=== PATIENT | male | born 1945 | race Caucasian/White ===

== ENCOUNTER 2017-03-18 17:11 | Inpatient (IN) | payer OTHER ==
[~2017-03-18] VITALS: Ht 175.3 cm; Wt 55.5 kg
[~2017-03-18 17:11] MED LIST: ASPEC81 PO; ASTN; AZIT-57 PO; DMX250 PO; DOXA-10 PO; GFNSR600 PO; IPRA1AER2 INH; IPRASOL34 INH; LPR25 PO; NCDT14 TD; OMEP40CA PO; POTA10CA28 PO; PRED10TA PO; SPRIN INH; SYMIN160 INH; [UNRECOGNIZED DRUG - CODE] INH
[2017-03-18] MEDS ORDERED: ALBUTEROL 0.083% NEBU SOLN 3 ML VIAL INH STA (17:20)
[2017-03-18 17:48] LABS: INR 1.1 (0.9-1.1); PTT PATIENT 25.5 SECONDS (21.0-31.0)
--- NOTE | 2017-03-18 17:50 | DIAGNOSTIC IMAGING REPORT ---
SINGLE VIEW CHEST CLINICAL HISTORY: Dyspnea. FINDINGS: An AP, portable, upright chest radiograph is compared to study dated 06/07/15 and correlated with chest CT dated 06/08/2015. The examination is degraded by portable technique and patient rotation. The heart is enlarged and there is atherosclerotic calcification of the thoracic aorta. The pulmonary vasculature is noncongested. Advanced emphysema and chronic interstitial thickening are similar to previous. Bullous change is again noted at the right apex. Patchy airspace opacities are present at both lung bases. No large pleural effusion or pneumothorax is seen. The skeletal structures are osteopenic. The bony thorax is grossly intact. IMPRESSION: 1. Cardiomegaly and advanced emphysema. There is no evidence of congestive failure. 2. There are patchy airspace opacities present at both lung bases. Correlate clinically for evidence of a mild infectious/inflammatory pneumonitis. Radiographic follow-up to resolution is recommended. Electronically signed by: Raj Camara M.D. 03/18/2017 5:49 PM Dictated Date/Time: 03/18/2017 5:47 PM
[2017-03-18 17:51] LABS: HEMATOCRIT 27.5 % (42-52); HEMOGLOBIN 8.1 g/dL (14.0-18.0); MEAN CELL VOLUME 104.2 fL (80-100); MEAN CORPUSCULAR HEMOGLOBIN 30.7 pg (25-34); MEAN CORPUSCULAR HGB CONC 29.5 g/dl (32-36); RED CELL DISTRIBUTION WIDTH SD 57.7 fL (36.4-46.3)
[2017-03-18 17:55] LABS: ALBUMIN 3.1 gm/dl (3.4-5.0); CALCIUM 8.6 mg/dl (8.5-10.1); CREATININE 1.72 mg/dl (0.60-1.40); POTASSIUM 4.3 mmol/L (3.5-5.1)
[2017-03-18 18:00] LABS: TOTAL PROTEIN 5.8 gm/dl (6.4-8.2)
[2017-03-18 18:01] LABS: BASO % 1.1 %; BASO ABS # 0.03 K/uL (0-0.2); EOS % 3.2 %; EOS ABS # 0.09 K/uL (0-0.5); IG# 0.03 K/uL (0.00-0.02); LYMPH % 22.1 %; LYMPH ABS # 0.62 K/uL (1.2-3.4); MEAN PLATELET VOLUME 11.3 fL (7.4-10.4); MONO % 8.2 %; MONO ABS # 0.23 K/uL (0.11-0.59); NEUT % 64.3 %; PLATELET COUNT 76 K/uL (130-400)
[2017-03-18] MEDS ORDERED: LEVAQUIN 750MG / 150ML D5W IV STA (18:13)
[2017-03-18] MEDS ORDERED: IPRA1AER2 INH (18:14)
[2017-03-18] MEDS ORDERED: ACET-1311 PO (18:14)
[2017-03-18] MEDS ORDERED: ASPI81TA28 PO (18:14)
[2017-03-18] MEDS ORDERED: LEVO1TAB33 PO (18:14)
[2017-03-18] MEDS ORDERED: PANT40TA PO (18:14)
[2017-03-18] MEDS ORDERED: TRMCR130WC TD (18:14)
[2017-03-18] MEDS ORDERED: NAPR-1169 PO (18:14)
[2017-03-18] MEDS ORDERED: IPRASOL4 INH (18:14)
[2017-03-18] MEDS ORDERED: AZIT500T26 PO (18:14)
[2017-03-18] MEDS ORDERED: LEVO-14 PO (18:14)
[2017-03-18] MEDS ORDERED: SODIUM CHLORIDE 0.9% 1000ML 1,000 ML IV STA (18:41)
--- NOTE | 2017-03-18 19:50 | EMERGENCY ROOM VISIT NOTE ---
History Report prepared by Dimple: Yordan Wiggins Under the Supervision of: Dr. Nicolás Palacios D.O. First contact with patient: 17:13 Stated Complaint: BREATHING DIFFICULTY History of Present Illness The patient is a 71 year old male who presents to the Emergency Room with complaints of constant shortness of breath starting yesterday. Per EMS, the patient has a history of COPD, and he has a cough which has worsened for the past week. He is normally on 3L of oxygen at home, and the EMS state that the patient was on 6L when they picked him up. The patient states that he has had shortness of breath like this before, and he states that this feels like his normal COPD flare ups. He additionally notes that he has been having some diarrhea. Per EMS, the patient was given a DuoNeb on the way, and this helped the patient. Pt denies headache, change in vision, fevers, chest pain, nausea, vomiting, pain with urination, and melena. Source of History: patient, EMS Onset: yesterday Position: other (global) Quality: other (shortness of breath) Timing: constant Modifying Factors (Relieving): other (DuoNeb) Associated Symptoms: + diarrhea, No chest pain Review of Systems See HPI for pertinent positives & negatives. A total of 10 systems reviewed and were otherwise negative. Past Medical & Surgical Medical Problems: (1) BPH (benign prostatic hyperplasia) (2) Chronic respiratory failure (3) Diverticular disease of colon (4) Emphysema (5) GERD (gastroesophageal reflux disease) (6) Respiratory failure, acute (7) Tobacco use Surgical Problems: (1) H/O colonoscopy (2) H/O esophagogastroduodenoscopy (3) History of bronchoscopy Family History Diabetes mellitus FH: heart disease Social History Smoking Status: Current Every Day Smoker Alcohol Use: none Marital Status: single Occupation Status: retired Current/Historical Medications Scheduled Acetazolamide (Acetazolamide), 250 MG PO BID Aspirin (Aspirin Ec), 81 MG PO QAM Azithromycin (Zithromax), 500 MG PO 3XWK Budesonide/Formoterol Fumarate (Symbicort 160/4.5 Inhaler ), 2 PUFFS INH BID Doxazosin Mesylate (Doxazosin Mesylate), 8 MG PO DAILY Furosemide (Lasix), 20 MG PO DAILY Home O2 Therapy (Oxygen), 2-2.5 LITERS NA CONTINOUS Ipratropium-Albuterol (Duoneb), 1 TREATMENT INH Q4H Levocetirizine Dihydrochloride (Levocetirizine Dihydrochl), 5 MG PO DAILY Pantoprazole (Protonix), 40 MG PO QAM Potassium Chloride (Micro-K Ext Rel), 10 MEQ PO BID Triamcinolone Acet (Aristocort 0.1%), 1 APPLN TD BID Scheduled PRN Acetaminophen (Tylenol), 650 MG PO Q4H PRN for Pain or Fever Azelastine Hcl (Astelin Nasal [place]), 1-2 SPRAYS NA BID PRN for ALLERGIES Ipratropium-Albuterol (Combivent Respimat), 1 PUFFS INH Q4H PRN for SOB/COUGH Levofloxacin (Levaquin), 750 MG PO DAILY PRN for RESCUE KIT Naproxen (Naprosyn), 500 MG PO BID W/FOOD PRN for Pain Allergies Coded Allergies: POLLEN (Verified Allergy, Unknown, SEASONAL ALLERGIES, 03/18/17) Lactose Intolerance (Verified Adverse Reaction, Intermediate, GI SYMPTOMS , 03/18/17) Physical Exam Vital Signs Date Time Temp Pulse Resp B/P (MAP) Pulse Ox O2 Delivery O2 Flow Rate FiO2 03/18/17 18:59 101 20 130/65 Nasal Cannula 3.0 03/18/17 18:48 96 18 134/65 98 Nasal Cannula 3.0 03/18/17 17:35 Nasal Cannula 3.0 03/18/17 17:35 100 Nasal Cannula 3.0 03/18/17 17:18 36.9 99 20 134/65 98 Nasal Cannula 3.0 Physical Exam GENERAL: Sitting up in bed, chronically ill appearing, disheveled, dyspneic with conversation. EYE EXAM: normal conjunctiva. OROPHARYNX: no exudate, no erythema, lips, buccal mucosa, and tongue normal and mucous membranes are moist NECK: supple, no nuchal rigidity, no adenopathy, non-tender LUNGS: Minimal air movement bilaterally. Normal chest wall mechanics HEART: no murmurs, S1 normal and S2 normal ABDOMEN: abdomen soft, non-tender, normo-active bowel sounds, no masses, no rebound or guarding. BACK: Back is symmetrical on inspection and there is no deformity, no midline tenderness, no CVA tenderness. RECTAL: Heme negative SKIN: no rashes and no bruising UPPER EXTREMITIES: upper extremities are grossly normal. LOWER EXTREMITIES: Calves are equal bilaterally. No pitting edema. NEURO EXAM: Normal sensorium, cranial nerves II-XII grossly intact, normal speech, no gross weakness of arms, no gross weakness of legs. Gross sensation intact. Medical Decision & Procedures ER Provider Diagnostic Interpretation: Radiology results as stated below per my review and the radiologist's interpretation: SINGLE VIEW CHEST CLINICAL HISTORY: Dyspnea. FINDINGS: An AP, portable, upright chest radiograph is compared to study dated 06/07/15 and correlated with chest CT dated 06/08/2015. The examination is degraded by portable technique and patient rotation. The heart is enlarged and there is atherosclerotic calcification of the thoracic aorta. The pulmonary vasculature is noncongested. Advanced emphysema and chronic interstitial thickening are similar to previous. Bullous change is again noted at the right apex. Patchy airspace opacities are present at both lung bases. No large pleural effusion or pneumothorax is seen. The skeletal structures are osteopenic. The bony thorax is grossly intact. IMPRESSION: 1. Cardiomegaly and advanced emphysema. There is no evidence of congestive failure. 2. There are patchy airspace opacities present at both lung bases. Correlate clinically for evidence of a mild infectious/inflammatory pneumonitis. Radiographic follow-up to resolution is recommended. Electronically signed by: Raj Camara M.D. 03/18/2017 5:49 PM Dictated Date/Time: 03/18/2017 5:47 PM Laboratory Results 03/18/17 17:25 Red Blood Count 2.64, Mean Corpuscular Volume 104.2, Mean Corpuscular Hemoglobin 30.7, Mean Corpuscular Hemoglobin Concent 29.5, Mean Platelet Volume 11.3, Neutrophils (%) (Auto) 64.3, Lymphocytes (%) (Auto) 22.1, Monocytes (%) ( Auto) 8.2, Eosinophils (%) (Auto) 3.2, Basophils (%) (Auto) 1.1, Neutrophils # ( Auto) 1.80, Lymphocytes # (Auto) 0.62, Monocytes # (Auto) 0.23, Eosinophils # ( Auto) 0.09, Basophils # (Auto) 0.03 03/18/17 17:25 Test 03/18/17 00:00 12/3/17 17:25 03/18/17 19:29 Urine Color YELLOW Urine Appearance CLEAR (CLEAR) Urine pH 7.0 (4.5-7.5) Urine Specific [place] 1.020 (1.000-1.030) Urine Protein TRACE (NEG) Urine Glucose (UA) NEG (NEG) Urine Ketones NEG (NEG) Urine Occult Blood NEG (NEG) Urine Nitrite NEG (NEG) Urine Bilirubin NEG (NEG) Urine Urobilinogen NEG (NEG) Urine Leukocyte Esterase NEG (NEG) Urine WBC (Auto) 1-5 /hpf (0-5) Urine RBC (Auto) 0-4 /hpf (0-4) Urine Hyaline Casts (Auto) 1-5 /lpf (0-5) Urine Epithelial Cells (Auto) 10-20 /lpf (0-5) Urine Bacteria (Auto) NEG (NEG) White Blood Count 2.80 K/uL (4.8-10.8) Red Blood Count 2.64 M/uL (4.7-6.1) Hemoglobin 8.1 g/dL (14.0-18.0) Hematocrit 27.5 % (42-52) Mean Corpuscular Volume 104.2 fL (80-100) Mean Corpuscular Hemoglobin 30.7 pg (25-34) Mean Corpuscular Hemoglobin Concent 29.5 g/dl (32-36) Platelet Count 76 K/uL (130-400) Mean Platelet Volume 11.3 fL (7.4-10.4) Neutrophils (%) (Auto) 64.3 % Lymphocytes (%) (Auto) 22.1 % Monocytes (%) (Auto) 8.2 % Eosinophils (%) (Auto) 3.2 % Basophils (%) (Auto) 1.1 % Neutrophils # (Auto) 1.80 K/uL (1.4-6.5) Lymphocytes # (Auto) 0.62 K/uL (1.2-3.4) Monocytes # (Auto) 0.23 K/uL (0.11-0.59) Eosinophils # (Auto) 0.09 K/uL (0-0.5) Basophils # (Auto) 0.03 K/uL (0-0.2) RDW Standard Deviation 57.7 fL (36.4-46.3) RDW Coefficient of Variation 15.0 % (11.5-14.5) Immature Granulocyte % (Auto) 1.1 % Immature Granulocyte # (Auto) 0.03 K/uL (0.00-0.02) Platelet Estimate DECREASED Giant Platelets 1+ Polychromasia 1+ Basophilic Stippling 1+ Prothrombin Time 11.6 SECONDS (9.0-12.0) Prothromb Time International Ratio 1.1 (0.9-1.1) Activated Partial Thromboplast Time 25.5 SECONDS (21.0-31.0) Partial Thromboplastin Ratio 1.0 Anion Gap 5.0 mmol/L (3-11) Est Creatinine Clear Calc Drug Dose 34.7 ml/min Estimated GFR () 44.7 Estimated GFR (Non- 38.6 BUN/Creatinine Ratio 11.7 (10-20) Calcium Level 8.6 mg/dl (8.5-10.1) Total Bilirubin 0.7 mg/dl (0.2-1) Aspartate Amino Transf (AST/SGOT) 9 U/L (15-37) Alanine Aminotransferase (ALT/SGPT) 9 U/L (12-78) Alkaline Phosphatase 51 U/L (45-117) Troponin I 0.020 ng/ml (0-0.045) Total Protein 5.8 gm/dl (6.4-8.2) Albumin 3.1 gm/dl (3.4-5.0) Globulin 2.7 gm/dl (2.5-4.0) Albumin/Globulin Ratio 1.1 (0.9-2) Laboratory results per my review. Medications Administered Medications (Trade) Dose Ordered Sig/Rosemary Route Start Time Stop Time Status Last Admin Dose Admin Albuterol Sulfate (Ventolin 0.083% 2.5MG/3ML Neb) 5 mg NOW STAT INH 03/18/17 17:20 03/18/17 17:22 DC 03/18/17 17:43 5 MG Levofloxacin (Levaquin / D5W) 750 mg NOW STAT IV 03/18/17 18:13 03/18/17 18:14 DC 03/18/17 18:39 750 MG Sodium Chloride 1,000 ml @ 999 mls/hr Q1H1M STAT IV 03/18/17 18:41 03/18/17 19:41 DC 03/18/17 18:59 999 MLS/HR ECG Indication: SOB/dyspnea Rate (beats per minute): 98 Rhythm: sinus rhythm Findings: PVC, other (poor baseline) ED Course ED COURSE: Vital signs were reviewed and showed tachycardia and hypoxia The patients medical record was reviewed The above diagnostic studies were performed and reviewed. ED treatments and interventions as stated above. 1713: The patient was evaluated in room C8. A complete history and physical examination was performed. 1720: Albuterol Sulfate 5mg INH 1813: Levofloxacin 750mg IV 1827: Upon reevaluation, the patient is doing fine.I discussed my findings with the patient and he understands and agrees with the treatment plan. Based on the patients age, coexisting illnesses, exam and lab findings the decision to treat as an inpatient was made. The patient remained stable while under my care. The patient will be evaluated for further management. 1840: I reviewed the patient's case with Dr. Josh Driver. She will evaluate the patient for further management. 1841: Sodium Chloride 1000 ml @ 999 mls/hr IV Medical Decision Differential diagnoses includes but is not limited to pneumonia, bronchitis, COPD/Asthma exacerbation, pneumothorax, pulmonary embolism, congestive heart failure, acute coronary syndrome. Patient is a 71-year-old male who presents to ER for shortness of breath. Patient has been having increased O2 requirements. CBC shows a leukopenia and anemia which is new. There is a significant thrombocytopenia. BMP shows an elevated creatinine of 1.7. Bilirubin along with LFTs and troponin was negative. INR was normal. UA was negative. Chest x-ray supports a pneumonia. Rectal was heme-negative. Uncertain of other cause of his worsening anemia and pancytopenia. Patient was updated bedside. She was given IV antibiotics and patient was admitted to internal medicine. Medication Reconcilliation Current Medication List: was personally reviewed by me Blood Pressure Screening Patient's blood pressure: Normal blood pressure Consults Time Called: 1821 Consulting Physician: Dr. Moreno Returned Call: 1840 I reviewed the patient's case with Dr. Josh Driver. She will evaluate the patient for further management. Impression Primary Impression: Pneumonia Additional Impressions: Hypoxia Pancytopenia Scribe Attestation The scribe's documentation has been prepared under my direction and personally reviewed by me in its entirety. I confirm that the note above accurately reflects all work, treatment, procedures, and medical decision making performed by me. Departure Information Dispostion Being Evaluated By Hospitalist Referrals Hamzah Ashley M.D. (PCP) Problem Qualifiers Primary Impression: Pneumonia Pneumonia type: due to unspecified organism Laterality: unspecified laterality Lung location: unspecified part of lung Qualified Codes: J18.9 - Pneumonia, unspecified organism
[2017-03-18] MEDS ORDERED: TRAMADOL HCL 50 MG TAB PO PRN (20:30)
[2017-03-18] MEDS ORDERED: HYDROmorphone INJ 0.5 MG/0.5 ML SYR IV PRN (20:30)
[2017-03-18] MEDS ORDERED: LEVALBUTEROL/IPRATROPIUM NEB INH PRN (20:30)
[2017-03-18 20:40] VITALS: BP 139/97; PULSE 100; TEMP 37.5; O2SAT 92; Ht 175.3 cm; Wt 55.5 kg
[2017-03-18] MEDS ORDERED: AMPICILLIN/SULBACTAM CONSULT ACTIVE PRN (20:45)
[2017-03-18] MEDS ORDERED: SODIUM CHLORIDE 0.45% 1000ML 1,000 ML IV ONE (21:00)
[2017-03-18] MEDS ORDERED: LEVALBUTEROL/IPRATROPIUM NEB INH SCH (21:00)
[2017-03-18] MEDS: LEVALBUTEROL 1.25MG/0.5ML NEB INH SCH (21:11)
[2017-03-18] MEDS: IPRATROPIUM BROMIDE NEB SOLN 0.02% 2.5 ML VIAL INH SCH (21:11)
[2017-03-18 21:12] VITALS: PULSE 89; O2SAT 99
[2017-03-18] MEDS: AMPICILLIN/SULBACTAM SOD INJ 3,000 MG in SODIUM CHLORIDE 0.9% 100ML 100 ML IV SCH (21:27)
[2017-03-18] MEDS: TRIAMCINOLONE ACET 0.1% CR 15 GM TUBE EXT SCH (21:28)
[2017-03-18] MEDS ORDERED: METHYLPREDNISOLONE IV 40 MG in SYRINGE 0 ML IV ONE (21:30)
[2017-03-18 22:49] LABS: INFLUENZA B ANTIGEN Neg for Influ B (NEG)
[2017-03-18 23:46] LABS: INFLUENZA A PCR Neg for Influ A (NEG); INFLUENZA B PCR Neg for Influ B (NEG)
[2017-03-18 23:52] VITALS: BP 107/52; PULSE 88; TEMP 37.7; O2SAT 99
[2017-03-19] VITALS (14 sets, daily range): BP systolic 112–153; BP diastolic 57–84; PULSE 70–92; TEMP 36.7–37.4; O2SAT 98–100
[2017-03-19] MEDS ORDERED: ACETAMINOPHEN 325 MG TAB PO ONE (00:36)
[2017-03-19 01:05] LABS: HEMATOCRIT 22.7 % (42-52); MEAN CELL VOLUME 103.7 fL (80-100); MEAN CORPUSCULAR HGB CONC 30.8 g/dl (32-36); RED CELL DISTRIBUTION WIDTH CV 14.7 % (11.5-14.5); WHITE BLOOD COUNT 3.08 K/uL (4.8-10.8)
[2017-03-19 01:24] LABS: CALCIUM 8.1 mg/dl (8.5-10.1); CREATININE 1.55 mg/dl (0.60-1.40); POTASSIUM 4.1 mmol/L (3.5-5.1)
[2017-03-19 01:57] LABS: MEAN PLATELET VOLUME 11.4 fL (7.4-10.4); PLATELET COUNT 72 K/uL (130-400)
[2017-03-19 02:05] LABS: BASO ABS # 0.03 K/uL (0-0.2); EOS % 2.6 %; EOS ABS # 0.08 K/uL (0-0.5); LYMPH % 16.6 %; LYMPH ABS # 0.51 K/uL (1.2-3.4); MONO % 8.4 %; MONO ABS # 0.26 K/uL (0.11-0.59); NEUT % 71.4 %; RETIC COUNT % 2.6 % (0.5-2.0)
--- NOTE | 2017-03-19 04:06 | HISTORY & PHYSICAL EXAMINATION ---
DATE OF ADMISSION: 03/18/2017 PRIMARY CARE DOCTOR: Dr. Hamzah Ashley. CHIEF COMPLAINT: Shortness of breath. HISTORY OF PRESENT ILLNESS: History obtained from patient and records. Medical history significant for chronic respiratory failure secondary to COPD on home O2, hypertension, CRI baseline creatinine 1.3, past tobacco abuse, chronic thrombocytopenia Recent confinement 2016 for COPD exacerbation, One-week history of productive cough symptoms. Admits to some coughing with meals. No chest pain. Admits to increasing shortness of breath. Denies fluid retention. Denies abdominal pain, black/bloody stools. Patient brought to the Emergency Room. He received Levaquin and Ventolin for COPD exacerbation. MEDICAL HISTORY: hx diverticulosis and polyps on colonoscopy in 2013 SURGERIES: None. HOME MEDICATIONS: Include acetazolamide, aspirin, Tylenol, Zithromax, Symbicort, Naproxen ALLERGIES: LACTOSE AND POLLEN. FAMILY HISTORY: Heart disease and lung disease. PERSONAL AND SOCIAL HISTORY: Past tobacco abuse. No chronic intake of alcoholic beverages. 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 REVIEW OF SYSTEMS: As per HPI. All 10 systems reviewed. All other ROS negative. PHYSICAL EXAMINATION: VITAL SIGNS: Blood pressure was noted to be 134/68, pulse rate 100, RR 21, temperature 37.7, sats 92 on 3 liters. GENERAL: Noted to be slightly uncomfortable, no respiratory distress, slightly hard of hearing. SKIN: Pallor and warm. HEENT: Alopecia. Pale palpebral conjunctivae. No ptosis. Dry mucosa. NECK: Short neck, no tenderness. CHEST: Decreased breath sounds. Occasional wheeze. HEART: Regular rate and rhythm, no murmur. ABDOMEN: Soft, nontender. RECTAL: Intact sphincter. Brown stools. Heme negative. EXTREMITIES: No edema noted. No gross deformities. No tenderness NEUROLOGIC: Coherent. No gross focality except for mild hearing impairment. LABORATORIES: Hemoglobin was noted to be 8, white blood cell count 2.8, platelets 76. Sodium 137, BUN 20, creatinine 1.7, glucose 98. Urinalysis, trace protein, epithelial cells 10-20. Chest x-ray showed cardiomegaly, emphysema, patchy airspace infiltrates. ASSESSMENT: 1. [id number] hypoxemic, hypercapnic respiratory failure secondary to possible aspiration pneumonia, possible sepsis. Marked hypercapnia on review of previous ABGs 2. Pancytopenia ? Secondary to home Acetazolamide - drug associated with aplastic anemia) [id number] anemia. Hg noted to be dropping over the last several months on review of outpatient blood work. Hemoccult negative. Chronic thrombocytopenia. Leukopenia. 3. HTN, stable 4. ARF 2 to illness 5. Past tobacco abuse PLAN: PCU supplemental O2 Baseline ABG Unasyn, nebs, steroids. Swallow eval, aspiration precautions for now Pulmonology consult RE resp failure peripheral blood smear. anemia valera, Outpatient Hematology opinion for pancytopenia Follow H&H, transfuse pRBC for hemoglobin less than 7 and/or symptomatic anemia. Monitor creatinine response to IV fluids. Hold home Acetazolamide for now given kidney dysfunction and possible hematologic toxicity. DVT prophylaxis, SCDs RE thrombocytopenia. Full code. MTDD
[2017-03-19] MEDS ORDERED: INFLUENZA VIRUS QUAD VACCINE 0.5 ML SYR IM. ONE (05:00)
[2017-03-19] MEDS ORDERED: INFLUENZA ADMINISTRATION CHARGE ONE (05:00)
[2017-03-19] MEDS ORDERED: PNEUMOCOCCAL POLYSACCHARIDES 25 MCG/0.5 ML VIAL/SYR IM. ONE (05:00)
[2017-03-19] MEDS ORDERED: PNEUMOCOCCAL ADMINISTRATION CHARGE ONE (05:00)
[2017-03-19] MEDS: AMPICILLIN/SULBACTAM SOD INJ 3,000 MG in SODIUM CHLORIDE 0.9% 100ML 100 ML IV SCH ×4 (06:00→22:50)
[2017-03-19] MEDS: LEVALBUTEROL 1.25MG/0.5ML NEB INH SCH ×3 (07:05→19:10)
[2017-03-19] MEDS: IPRATROPIUM BROMIDE NEB SOLN 0.02% 2.5 ML VIAL INH SCH ×3 (07:05→19:10)
[2017-03-19] MEDS: DOXAZosin MESYLATE TAB 4 MG TAB PO SCH (08:00)
[2017-03-19] MEDS: PANTOprazole SOD 40 MG TAB PO SCH (08:00)
[2017-03-19] MEDS: TRIAMCINOLONE ACET 0.1% CR 15 GM TUBE EXT SCH ×2 (08:01→21:00)
[2017-03-19] MEDS ORDERED: LEVALBUTEROL/IPRATROPIUM NEB INH STA (08:37)
[2017-03-19] MEDS ORDERED: LEVALBUTEROL 1.25MG/0.5ML NEB INH STA (08:50)
[2017-03-19] MEDS ORDERED: IPRATROPIUM BROMIDE NEB SOLN 0.02% 2.5 ML VIAL INH STA (08:50)
--- NOTE | 2017-03-19 12:09 | Pulmonary Consultation ---
History General Date of Service: Mar 19, 2017. Stated Complaint: Respiratory Failure, Acute HPI The patient is a 71 year old male who presents to [facility] with complaints of Respiratory Failure, Acute. The patient's primary care provider is Hamazh Ashley M.D.. Mr. De La Cruz is a 70-year-old male with current tobacco user, COPD-unknown FEV1 , on long-term oxygen therapy at 3 L nasal cannula who presents with one-week history of worsening productive cough and dyspnea on exertion. He denies any fevers, chills or chest pain. He states that his exercise tolerance is limited at baseline, but he is able to perform his activities of daily living. He does have a visiting nurse aide that assists him with bathing. He does have history postnasal drip and GERD. He denies any orthopnea or paroxysmal dyspnea or lower extremity edema. He denies any sick contacts or recent travel. He does admit to decreased by mouth intake over the last few days associated with diarrhea. He denies any nausea or vomiting. He does admit to coughing with eating. He does have chronic cough with sputum production. He denies any hemoptysis or weight loss. He sees a salesperson toy [employer] but unable to recall his name. His home pulmonary medications include Symbicort 160/4.52 puffs twice a day, Combivent and azithromycin 500 mg 3 times weekly. His last COPD exacerbation was in May 2015. It appears that he has previously been on Daliresp which has been continued. Initial vital signs in the ER, showed a temperature 36.9, pulse 79, respiratory rate of 20, blood pressure 134/65, pulse oximetry 98% on 2 L nasal cannula. Laboratory data showed a white blood count of 2.8, Hemoglobin of 8.1, Platelet Count of 76. Repeat white blood cell count of 63, hemoglobin of 7 and platelet 72. PTT 25.5, PT 11.6, and INR 1.1. Chemistry shows a sodium of 146, potassium 4.3, chloride 108, carbon dioxide of 33, BUN 20 and creatinine of 1.72 ( baseline 1.3). Total bili 0.7, AST 9, ALT 9. Troponin 0.02. Total protein 5.8 and albumin 3.1. Repeat creatinine this morning 1.55. Blood cultures pending. ABG on admission shows 7.27/64/191/28/98.7% on 3 L. Repeat 7.29/53/ 1.77/30/98.3% on 3 L. Chest x-ray shows cardiomegaly and advanced emphysema. There is no evidence of congestive heart failure with a patchy airspace opacities present at both lung bases. In the ER he received albuterol 5 mg 1 dose, Levaquin 750 mg 1, Xopenex/ ipratropium nebulizer 1 dose, normal saline 2 L. He was admitted for COPD exacerbation and started on Unasyn. Historian: patient Review of Systems Constitutional: reports: as stated in HPI Eyes: reports: as stated in HPI ENT: reports: as stated in HPI Cardiovascular: reports: as stated in HPI Respiratory: reports: as stated in HPI Gastrointestinal: reports: as stated in HPI Genitourinary - Male: reports: as stated in HPI Musculoskeletal: reports: as stated in HPI Integumentary: reports: as stated in HPI Neurologic: reports: as stated in HPI Psychiatric: reports: as stated in HPI Endocrine: as stated in HPI Hematologic / Lymphatic: as stated in HPI All Other Symptoms All Other Systems: Reviewed and Negative Past Medical History Past Medical History: COPD Tobacco use disorder Hypertension Esophageal stricture Diverticular disease GERD Past Medical History: BPH, COPD, diverticulosis, GERD, high cholesterol, kidney stones, lung disease Past Surgical History: Denies Family History Diabetes mellitus FH: heart disease Social History Hx Tobacco Use In Past Year?: Yes (cigarettes 1 PPD ) Smoking Status: Current Every Day Smoker Alcohol: never Marital status: single Housing status: lives alone Occupational Status: retired Immunizations History of Influenza Vaccine: Yes Influenza Vaccine Date: Feb 19, 2013 History of Tetanus Vaccine?: Unknown History of Pneumococcal: Yes Pneumococcal Date: Nov 04, 2008 History of Hepatitis B Vaccine: Unknown Allergies Coded Allergies: POLLEN (Verified Allergy, Unknown, SEASONAL ALLERGIES, 03/18/17) Lactose Intolerance (Verified Adverse Reaction, Intermediate, GI SYMPTOMS , 03/18/17) Current Medications Reported Home Medications Medications Dose Route/Sig Max Daily Dose Days Date Category Dose Instructions Tylenol (Acetaminophen) 325 Mg Tab 650 Mg PO Q4H PRN 03/18/17 Reported Levaquin (Levofloxacin) 500 Mg Tab 750 Mg PO DAILY PRN 7 03/18/17 Reported Aristocort 0.1% (Triamcinolone Acet) 90 Appln/30 Gm Cr 1 Appln TD BID 03/18/17 Reported Lasix (Furosemide) 20 Mg Tab 20 Mg PO DAILY 03/18/17 Reported Protonix (Pantoprazole Sodium) 40 Mg Tab 40 Mg PO QAM 03/18/17 Reported Naprosyn (Naproxen) 500 Mg Tab 500 Mg PO BID W/FOOD PRN 03/18/17 Reported Levocetirizine Dihydrochl (Levocetirizine Dihydrochloride) 5 Mg Tab 5 Mg PO DAILY 90 03/18/17 Reported Combivent Respimat (Ipratropium-Albuterol) 1 Aer Aer 1 Puffs INH Q4H PRN 03/18/17 Reported Zithromax (Azithromycin) 500 Mg Tab 500 Mg PO 3XWK 03/18/17 Reported TAKES MON, WED, FRI. Aspirin Ec (Aspirin) 81 Mg Tab 81 Mg PO QAM 03/18/17 Reported Acetazolamide 250 Mg Tab 250 Mg PO BID 03/18/17 Reported Duoneb (Ipratropium-Albuterol) 3 Ml Nebu 1 Treatment INH Q4H 03/18/17 Reported Micro-K Ext Rel (Potassium Chloride) 10 Meq Capcr 10 Meq PO BID 06/07/15 Reported Symbicort 160/4.5 Inhaler (Budesonide/Formoterol Fumarate) Aero 2 Puffs INH BID 08/04/13 Reported Oxygen Gas 2-2.5 Liters NA CONTINOUS 05/21/13 Reported . Astelin Nasal [place] (Azelastine Hcl) 200 Sprays/30 Ml [place] 1-2 Sprays NA BID PRN 05/21/13 Reported Doxazosin Mesylate 8 Mg Tab 8 Mg PO DAILY 05/21/13 Reported Physical Physical Exam Vital Signs: Date Time Temp Pulse Resp B/P (MAP) Pulse Ox O2 Delivery O2 Flow Rate FiO2 03/19/17 08:38 37.4 92 20 112/66 (81) 99 Nasal Cannula 3.0 03/19/17 08:00 Nasal Cannula 3.0 03/19/17 05:56 37.2 73 17 112/57 99 03/19/17 05:31 37.1 74 19 116/59 99 3.0 03/19/17 05:04 37.0 85 15 124/65 99 3.0 03/19/17 04:37 37.1 83 22 131/70 99 03/19/17 04:10 37.2 87 21 137/65 99 3.0 03/19/17 04:00 Nasal Cannula 3.0 03/19/17 03:58 36.7 83 19 125/62 (83) 99 Nasal Cannula 3.0 03/18/17 23:59 Nasal Cannula 3.0 03/18/17 23:52 37.7 88 21 107/52 (70) 99 Nasal Cannula 3.0 03/18/17 21:12 89 16 99 Nasal Cannula 4.0 03/18/17 20:40 37.5 100 21 139/97 92 Nasal Cannula 3.0 03/18/17 18:59 101 20 130/65 98 Nasal Cannula 3.0 03/18/17 18:48 96 18 134/65 98 Nasal Cannula 3.0 03/18/17 17:35 Nasal Cannula 3.0 03/18/17 17:35 100 Nasal Cannula 3.0 03/18/17 17:18 36.9 99 20 134/65 98 Nasal Cannula 3.0 General Appearance: mild distress Head: NORMOCEPHALIC, ATRAUMATIC Eyes: PERRLA, NO DISCHARGE, EOMI ENT: NORMAL MOUTH EXAM Neck: NORMAL RANGE OF MOTION, NO TENDERNESS, TRACHEA MIDLINE Respiratory: rhonchi Cardiovasular: NORMAL S1S2 (tachycardic) Abdomen: NON TENDER, NORMAL BOWEL SOUNDS Back: NORMAL INSPECTION, NO MIDLINE TENDERNESS, NO CVA TENDERNESS Upper Extremities: NO EDEMA, NO DEFORMITY, NORMAL ROM, other (staining of his fingernails is) Lower Extremities: NO EDEMA, NO DEFORMITY, NORMAL ROM Pulses: dorsalis pedis (R) (2+), dorsalis pedis (L) (2+) Neuro: ALERT, ORIENTED x 3, NORMAL MOTOR EXAM, NORMAL SPEECH, NORMAL MEMORY Psychiatric: NORMAL AFFECT Diagnostics Labs Results Past 24 Hours Test 03/18/17 17:25 03/18/17 20:14 03/19/17 00:52 03/19/17 00:53 Range/Units White Blood Count 2.80 3.08 4.8-10.8 K/uL Red Blood Count 2.64 2.19 4.7-6.1 M/uL Hemoglobin 8.1 7.0 14.0-18.0 g/dL Hematocrit 27.5 22.7 42-52 % Mean Corpuscular Volume 104.2 103.7 80-100 fL Mean Corpuscular Hemoglobin 30.7 32.0 25-34 pg Mean Corpuscular Hemoglobin Concent 29.5 30.8 32-36 g/dl Platelet Count 76 72 130-400 K/uL Mean Platelet Volume 11.3 11.4 7.4-10.4 fL Neutrophils (%) (Auto) 64.3 71.4 % Lymphocytes (%) (Auto) 22.1 16.6 % Monocytes (%) (Auto) 8.2 8.4 % Eosinophils (%) (Auto) 3.2 2.6 % Basophils (%) (Auto) 1.1 1.0 % Neutrophils # (Auto) 1.80 2.20 1.4-6.5 K/uL Lymphocytes # (Auto) 0.62 0.51 1.2-3.4 K/uL Monocytes # (Auto) 0.23 0.26 0.11-0.59 K/uL Eosinophils # (Auto) 0.09 0.08 0-0.5 K/uL Basophils # (Auto) 0.03 0.03 0-0.2 K/uL RDW Standard Deviation 57.7 56.0 36.4-46.3 fL RDW Coefficient of Variation 15.0 14.7 11.5-14.5 % Immature Granulocyte % (Auto) 1.1 0.0 % Immature Granulocyte # (Auto) 0.03 0.00 0.00-0.02 K/uL Platelet Estimate DECREASED Giant Platelets 1+ Polychromasia 1+ Basophilic Stippling 1+ 1+ Peripheral Blood Smear Path Consult Prothrombin Time 11.6 9.0-12.0 SECONDS Prothromb Time International Ratio 1.1 0.9-1.1 Activated Partial Thromboplast Time 25.5 21.0-31.0 SECONDS Partial Thromboplastin Ratio 1.0 Sodium Level 146 145 136-145 mmol/L Potassium Level 4.3 4.1 3.5-5.1 mmol/L Chloride Level 108 109 98-107 mmol/L Carbon Dioxide Level 33 32 21-32 mmol/L Anion Gap 5.0 4.0 3-11 mmol/L Blood Urea Nitrogen 20 20 7-18 mg/dl Creatinine 1.72 1.55 0.60-1.40 mg/dl Est Creatinine Clear Calc Drug Dose 34.7 36.9 ml/min Estimated GFR () 44.7 50.7 Estimated GFR (Non- 38.6 43.8 BUN/Creatinine Ratio 11.7 12.6 10-20 Random Glucose 98 101 70-99 mg/dl Calcium Level 8.6 8.1 8.5-10.1 mg/dl Magnesium Level 2.1 1.8-2.4 mg/dl Total Bilirubin 0.7 0.2-1 mg/dl Aspartate Amino Transf (AST/SGOT) 9 15-37 U/L Alanine Aminotransferase (ALT/SGPT) 9 12-78 U/L Alkaline Phosphatase 51 45-117 U/L Troponin I 0.020 0.033 0-0.045 ng/ml Total Protein 5.8 6.4-8.2 gm/dl Albumin 3.1 3.4-5.0 gm/dl Globulin 2.7 2.5-4.0 gm/dl Albumin/Globulin Ratio 1.1 0.9-2 Arterial Blood pH 7.27 7.29 7.35-7.45 Arterial Blood Partial Pressure CO2 64 63 35-46 mmHg Arterial Blood Partial Pressure O2 191 177 80-95 mm/Hg Arterial Blood HCO3 28 30 19-24 mmol/L Arterial Blood Oxygen Saturation 98.7 98.3 90-95 % Arterial Blood Base Excess 1.4 2.9 -9-1.8 mEq/L Arterial Blood Gas Delivery 3L O2 3 L Howard Test POS POS POS Lactic Acid Level 0.6 0.4-2.0 mmol/L Anisocytosis PRESENT Absolute Reticulocyte Count 0.06 0.02-0.10 10^6/uL Percent Reticulocyte Count 2.6 0.5-2.0 % Iron Level 35 35-175 mcg/dl Total Iron Binding Capacity 178 250-450 mcg/dl Transferrin 114 200-360 mg/dl Transferrin % Saturation 22 20-50 % Ferritin 178.5 8.0-388.0 ng/ml Vitamin B12 Level 559 211-911 pg/mL Folate 10.95 >5.38 ng/mL Microbiology Results 03/18/17 Blood Culture, Received Pending 03/18/17 Blood Culture, Received Pending Diagnostic Radiology SINGLE VIEW CHEST CLINICAL HISTORY: Dyspnea. FINDINGS: An AP, portable, upright chest radiograph is compared to study dated 06/07/15 and correlated with chest CT dated 06/08/2015. The examination is degraded by portable technique and patient rotation. The heart is enlarged and there is atherosclerotic calcification of the thoracic aorta. The pulmonary vasculature is noncongested. Advanced emphysema and chronic interstitial thickening are similar to previous. Bullous change is again noted at the right apex. Patchy airspace opacities are present at both lung bases. No large pleural effusion or pneumothorax is seen. The skeletal structures are osteopenic. The bony thorax is grossly intact. IMPRESSION: 1. Cardiomegaly and advanced emphysema. There is no evidence of congestive failure. 2. There are patchy airspace opacities present at both lung bases. Correlate clinically for evidence of a mild infectious/inflammatory pneumonitis. Radiographic follow-up to resolution is recommended. Impression Assessment and Plan COPD exacerbation Bronchiectasis Acute on chronic hypoxic hypercapnic respiratory failure Tobacco use disorder Diastolic dysfunction GERD Post nasal drip Mr. De La Cruz presents with worsening dyspnea on exertion and associated with hypoxia hypercapnic respiratory failure. This is likely precipitated by a continued tobacco use disorder. Recommendations Please maintain SaO2 between 88-92%. At the current time I will place patient on BiPAP for hypercapnic respiratory failure. Obtain sputum cultures. Smoking cessation counseling given. Offered patient a nicotine patch, however he declined. Obtain a pulmonary notes and PFT from [facility]. Continue with Symbicort, albuterol/Xopenex nebulizer every 4 hours We'll give Mucomyst twice a day, chest vest and flutter valve for aggressive pulmonary toilet. Continue with PPI for GERD and nasal spray for post nasal drip. Speech evaluation to rule out aspiration. I appreciate the consult.
[2017-03-19 12:57] LABS: HEMATOCRIT 27.4 % (42-52); HEMOGLOBIN 8.5 g/dL (14.0-18.0)
--- NOTE | 2017-03-19 14:52 | DIAGNOSTIC IMAGING REPORT ---
(CHEST) THORAX WITHOUT CT DOSE: 354.65 mGy.cm HISTORY: Dyspnea Bronchiectasis TECHNIQUE: Multiaxial CT images of the chest were performed without contrast. A dose lowering technique was utilized adhering to the principles of ALARA. COMPARISON: 06/08/2015 FINDINGS: Apical bleb formation stable from the prior study. Diffuse emphysematous change unaltered from the prior exam. Mild bronchiectatic change in the right and to a lesser extent left lung base generally stable. May be a slight increase in bronchiectasis anterior right middle lobe. Patient has developed small bilateral pleural effusions. No significant hilar or mediastinal adenopathy. IMPRESSION: 1. Emphysematous change stable from the prior study. 2. Interval development of small bilateral pleural effusions. 3. Mid and lower lung basilar bronchiectatic change is stable to minimally progressive specifically in the right middle lobe region. 4. Apical and posterior lung bleb formation stable. The above report was generated using voice recognition software. It may contain grammatical, syntax or spelling errors. Electronically signed by: Sukh England M.D. 03/19/2017 2:51 PM Dictated Date/Time: 03/19/2017 2:48 PM
--- NOTE | 2017-03-19 17:21 | ECHOCARDIOGRAM REPORT ---
*NOTICE TO RECEIVING [employer] This information is strictly Confidential and protected under [place] law. [place] law prohibits you from making any further disclosure of this information unless further disclosure is expressly permitted by the written consent of the person to whom it pertains or is authorized by law. A general authorization for the release of medical or other information is not sufficient for this purpose. Hospital accepts no responsibility if the information is made available to any other person, INCLUDING THE PATIENT. Interpretation Summary * Name: KALYN STEPHEN Study Date: 03/19/2017 12:25 PM BP: 124/67 mmHg * Patient Location: C.2E\S\E210\S\1 HR: 91 * : 1945 (M/d/yyyy) Gender: Male Height: 69 in * Age: 71 yrs Ethnicity: CA Weight: 183 lb * Ordering Physician: Elo Cabral * Referring Physician: Self, Referred * Performed By: Lisa Cuello RCS * * Reason For Study: PULMONARY HTN * BSA: 2.0 m2 * The study was technically adequate. * Compared to prior study, changes are noted. * -- Conclusions -- * Left ventricular systolic function is normal. * Ejection Fraction = 55-60%. * The right ventricular cavity size is normal (basal dimension <4.2 cm in right ventricular apical 4-chamber view). * The right ventricular systolic function is qualitatively normal. * There is mild mitral regurgitation. * There is mild tricuspid regurgitation. * The estimated systolic PAP is 55mmHg. * Dilated IVC with normal inspiratory variation suggesting RA pressure of 8mmHg. Procedure Details * A complete two-dimensional transthoracic echocardiogram was performed (2D, M-mode, Doppler and color flow Doppler). * The study was technically difficult. * There were technical limitations due to patient'spoor positioning Left Ventricle * The left ventricle is normal in size. * There is no thrombus. * There is normal left ventricular wall thickness. * Left ventricular systolic function is normal. * Ejection Fraction = 55-60%. * The left ventricular wall motion is normal. Right Ventricle * The right ventricle is normal size. * The right ventricular cavity size is normal (basal dimension <4.2 cm in right ventricular apical 4-chamber view). * The right ventricular systolic function is qualitatively normal. Atria * The left atrial size is normal. * Right atrial size is normal. * Lipomatous hypertrophy of the interatrial septum is noted. Mitral Valve * The mitral valve is normal. * There is no mitral valve stenosis. * There is mild mitral regurgitation. Tricuspid Valve * The tricuspid valve is normal. * There is no tricuspid stenosis. * There is mild tricuspid regurgitation. * The estimated systolic PAP is 55mmHg. Aortic Valve * The aortic valve is not well visualized. * Aortic stenosis is absent. * There is no significant aortic regurgitation. Pulmonic Valve * The pulmonary valve is not well seen, but the Doppler examination is normal without significant regurgitation or stenosis. Great Vessels * The aortic root is normal size. Pericardium/Pleural * There is no pericardial effusion. Great Vessels * Dilated IVC with normal inspiratory variation suggesting RA pressure of 8mmHg. MMode 2D Measurements and Calculations IVSd 1.3 cm IVSs 1.4 cm LVIDd 5.8 cm LVIDs 4.9 cm LVPWd 1.1 cm LVPWs 1.4 cm IVS/LVPW 1.1 FS 15.7 % EDV(Teich) 168.0 ml ESV(Teich) 113.2 ml EF(Teich) 32.6 % EDV(cubed) 197.3 ml ESV(cubed) 118.1 ml EF(cubed) 40.1 % % IVS thick 12.8 % % LVPW thick 22.0 % LV mass(C)d 296.8 grams LV mass(C)dI 149.2 grams/m\S\2 LV mass(C)s 282.7 grams LV mass(C)sI 142.1 grams/m\S\2 SV(Teich) 54.8 ml SI(Teich) 27.6 ml/m\S\2 SV(cubed) 79.2 ml SI(cubed) 39.8 ml/m\S\2 Ao root diam 3.7 cm Ao root area 10.7 cm\S\2 ACS 2.3 cm LA dimension 3.3 cm LA/Ao 0.89 LVOT diam 2.2 cm LVOT area 3.6 cm\S\2 Doppler Measurements and Calculations MV E max cuauhtemoc 112.7 cm/sec MV A max cuauhtemoc 90.1 cm/sec MV E/A 1.3 MV P1/2t max cuauhtemoc 109.1 cm/sec MV P1/2t 49.8 msec MVA(P1/2t) 4.4 cm\S\2 MV dec slope 642.0 cm/sec\S\2 MV dec time 0.19 sec Ao V2 max 125.7 cm/sec Ao max PG 6.3 mmHg Ao max PG (full) 3.8 mmHg KAL(V,A) 2.3 cm\S\2 KAL(V,D) 2.3 cm\S\2 LV V1 max PG 2.5 mmHg LV V1 max 79.8 cm/sec PA V2 max 101.7 cm/sec PA max PG 4.1 mmHg PI max cuauhtemoc 190.5 cm/sec PI max PG 14.5 mmHg PI dec slope 184.9 cm/sec\S\2 PI P1/2t 301.7 msec TR max cuauhtemoc 331.8 cm/sec
--- NOTE | 2017-03-19 17:44 | Progress Note ---
Internal Med Progress Note Date of Service: Mar 19, 2017. Provider Documentation: SUBJECTIVE: Denies history of bleeding. Reports while on nasal cannula that breathing is better than before hospital admission. Patient not desaturating while on Nasal cannula and good mentation OBJECTIVE: Exam: General- no acute distress Eyes- EOMI ENT- no epistaxis, no exudates Neck- trachea midline Lungs- mild to minimal expiratory wheeze Heart- regular rate Abdomen- soft, nontender, + bowel sounds Extremities- no edema Neuro- no focal neurological deficits ASSESSMENT & PLAN: Patient presented with complaints of shortness of breath and given Unasyn, nebs , steroids for pneumonia vs COPD, also history of pancytopenia s/p 1 unit PRBC, with acute Kidney injury improving on IV fluids CT Chest 1. Emphysematous change stable from the prior study. 2. Interval development of small bilateral pleural effusions. 3. Mid and lower lung basilar bronchiectatic change is stable to minimally progressive specifically in the right middle lobe region. 4. Apical and posterior lung bleb formation stable. Being followed by pulmonary service for COPD exacerbation Bronchiectasis Acute on chronic hypoxic hypercapnic respiratory failure Tobacco use disorder -pulmonary consult recommends bipap but patient doing well on nasal cannula, recheck blood gas in AM labs -maintain SaO2 between 88-92% -Obtain pulmonary notes and PFT from [facility] -Continue with Symbicort, albuterol/Xopenex nebulizer every 4 hours -Mucomyst twice a day, chest vest and flutter valve for aggressive pulmonary toilet -obtain sputum culture Also was found to be anemic between admission CBCs Hgb 8.1 to 7 with no obvious source of bleeding an patient was transfused 1 unit of PRBC overnight. Subsequent rise in Hgb to 8.5. history Pancytopenia Secondary to home Acetazolamide - drug associated with aplastic anemia) [id number] anemia. Hg noted to be dropping over the last several months on review of outpatient blood work. Hemoccult negative. Chronic thrombocytopenia. Leukopenia. Outpatient Hematology opinion for pancytopenia? [facility]ASITY Monitor creatinine response to IV fluids. Hold home Acetazolamide for now given kidney dysfunction and possible hematologic toxicity. Echocardiogram * Left ventricular systolic function is normal. * Ejection Fraction = 55-60%. * The right ventricular cavity size is normal (basal dimension <4.2 cm in right ventricular apical 4-chamber view). * The right ventricular systolic function is qualitatively normal. * There is mild mitral regurgitation. * There is mild tricuspid regurgitation. * The estimated systolic PAP is 55mmHg. * Dilated IVC with normal inspiratory variation suggesting RA pressure of 8mmHg. GERD - pantoprazole Post nasal drip - flonase DVT ppx: SCDs Vital Signs: Date Time Temp Pulse Resp B/P (MAP) Pulse Ox O2 Delivery O2 Flow Rate FiO2 03/19/17 16:02 36.7 79 18 131/68 (89) 100 Nasal Cannula 2.5 03/19/17 12:24 36.7 90 20 124/67 (86) 99 Nasal Cannula 3.0 03/19/17 12:00 Nasal Cannula 3.0 03/19/17 08:38 37.4 92 20 112/66 (81) 99 Nasal Cannula 3.0 03/19/17 08:00 Nasal Cannula 3.0 03/19/17 05:56 37.2 73 17 112/57 99 03/19/17 05:31 37.1 74 19 116/59 99 3.0 03/19/17 05:04 37.0 85 15 124/65 99 3.0 03/19/17 04:37 37.1 83 22 131/70 99 03/19/17 04:10 37.2 87 21 137/65 99 3.0 03/19/17 04:00 Nasal Cannula 3.0 03/19/17 03:58 36.7 83 19 125/62 (83) 99 Nasal Cannula 3.0 03/18/17 23:59 Nasal Cannula 3.0 03/18/17 23:52 37.7 88 21 107/52 (70) 99 Nasal Cannula 3.0 03/18/17 21:12 89 16 99 Nasal Cannula 4.0 03/18/17 20:40 37.5 100 21 139/97 92 Nasal Cannula 3.0 03/18/17 18:59 101 20 130/65 98 Nasal Cannula 3.0 03/18/17 18:48 96 18 134/65 98 Nasal Cannula 3.0 Lab Results: Results Past 24 Hours Test 03/18/17 20:14 03/19/17 00:52 03/19/17 00:53 03/19/17 12:30 Range/Units Arterial Blood pH 7.27 7.29 7.35-7.45 Arterial Blood Partial Pressure CO2 64 63 35-46 mmHg Arterial Blood Partial Pressure O2 191 177 80-95 mm/Hg Arterial Blood HCO3 28 30 19-24 mmol/L Arterial Blood Oxygen Saturation 98.7 98.3 90-95 % Arterial Blood Base Excess 1.4 2.9 -9-1.8 mEq/L Arterial Blood Gas Delivery 3L O2 3 L Howard Test POS POS POS Lactic Acid Level 0.6 0.4-2.0 mmol/L White Blood Count 3.08 4.8-10.8 K/uL Red Blood Count 2.19 4.7-6.1 M/uL Hemoglobin 7.0 8.5 14.0-18.0 g/dL Hematocrit 22.7 27.4 42-52 % Mean Corpuscular Volume 103.7 80-100 fL Mean Corpuscular Hemoglobin 32.0 25-34 pg Mean Corpuscular Hemoglobin Concent 30.8 32-36 g/dl Platelet Count 72 130-400 K/uL Mean Platelet Volume 11.4 7.4-10.4 fL Neutrophils (%) (Auto) 71.4 % Lymphocytes (%) (Auto) 16.6 % Monocytes (%) (Auto) 8.4 % Eosinophils (%) (Auto) 2.6 % Basophils (%) (Auto) 1.0 % Neutrophils # (Auto) 2.20 1.4-6.5 K/uL Lymphocytes # (Auto) 0.51 1.2-3.4 K/uL Monocytes # (Auto) 0.26 0.11-0.59 K/uL Eosinophils # (Auto) 0.08 0-0.5 K/uL Basophils # (Auto) 0.03 0-0.2 K/uL RDW Standard Deviation 56.0 36.4-46.3 fL RDW Coefficient of Variation 14.7 11.5-14.5 % Immature Granulocyte % (Auto) 0.0 % Immature Granulocyte # (Auto) 0.00 0.00-0.02 K/uL Basophilic Stippling 1+ Anisocytosis PRESENT Absolute Reticulocyte Count 0.06 0.02-0.10 10^6/uL Percent Reticulocyte Count 2.6 0.5-2.0 % Sodium Level 145 136-145 mmol/L Potassium Level 4.1 3.5-5.1 mmol/L Chloride Level 109 98-107 mmol/L Carbon Dioxide Level 32 21-32 mmol/L Anion Gap 4.0 3-11 mmol/L Blood Urea Nitrogen 20 7-18 mg/dl Creatinine 1.55 0.60-1.40 mg/dl Est Creatinine Clear Calc Drug Dose 36.9 ml/min Estimated GFR () 50.7 Estimated GFR (Non- 43.8 BUN/Creatinine Ratio 12.6 10-20 Random Glucose 101 70-99 mg/dl Calcium Level 8.1 8.5-10.1 mg/dl Iron Level 35 35-175 mcg/dl Total Iron Binding Capacity 178 250-450 mcg/dl Transferrin 114 200-360 mg/dl Transferrin % Saturation 22 20-50 % Ferritin 178.5 8.0-388.0 ng/ml Troponin I 0.033 0-0.045 ng/ml Vitamin B12 Level 559 211-911 pg/mL Folate 10.95 >5.38 ng/mL Test 03/19/17 17:46 Range/Units Microbiology Results 03/18/17 Blood Culture, Received Pending 03/18/17 Blood Culture, Received Pending
[2017-03-19 18:21] LABS: HEMATOCRIT 29.3 % (42-52)
[2017-03-19] MEDS: ACETYLCYSTEINE 20% INHAL SOLN ***DISPENSED BY RESP. INH SCH (19:10)
[2017-03-20] VITALS (9 sets, daily range): BP systolic 126–173; BP diastolic 52–78; PULSE 70–113; TEMP 36.2–37.1; O2SAT 94–100
[2017-03-20] MEDS: IPRATROPIUM BROMIDE NEB SOLN 0.02% 2.5 ML VIAL INH SCH ×4 (01:51→19:40)
[2017-03-20] MEDS: LEVALBUTEROL 1.25MG/0.5ML NEB INH SCH ×4 (01:51→19:40)
[2017-03-20] MEDS: AMPICILLIN/SULBACTAM SOD INJ 3,000 MG in SODIUM CHLORIDE 0.9% 100ML 100 ML IV SCH ×4 (03:52→22:13)
[2017-03-20 06:07] LABS: HEMATOCRIT 26.4 % (42-52); HEMOGLOBIN 8.2 g/dL (14.0-18.0); MEAN CORPUSCULAR HEMOGLOBIN 31.1 pg (25-34); MEAN CORPUSCULAR HGB CONC 31.1 g/dl (32-36); RED CELL DISTRIBUTION WIDTH CV 15.5 % (11.5-14.5); RED CELL DISTRIBUTION WIDTH SD 56.7 fL (36.4-46.3); WHITE BLOOD COUNT 3.27 K/uL (4.8-10.8)
[2017-03-20 06:34] LABS: MEAN PLATELET VOLUME 11.7 fL (7.4-10.4); PLATELET COUNT 72 K/uL (130-400)
[2017-03-20 06:46] LABS: CALCIUM 8.5 mg/dl (8.5-10.1); CREATININE 1.54 mg/dl (0.60-1.40); POTASSIUM 4.2 mmol/L (3.5-5.1)
[2017-03-20 07:13] LABS: BASO % 0.3 %; BASO ABS # 0.01 K/uL (0-0.2); EOS % 0.9 %; EOS ABS # 0.03 K/uL (0-0.5); IG# 0.01 K/uL (0.00-0.02); LYMPH % 24.8 %; LYMPH ABS # 0.81 K/uL (1.2-3.4); MONO % 12.5 %; MONO ABS # 0.41 K/uL (0.11-0.59); NEUT % 61.2 %
[2017-03-20] MEDS: ACETYLCYSTEINE 20% INHAL SOLN ***DISPENSED BY RESP. INH SCH ×2 (07:22→19:40)
[2017-03-20] MEDS: TRIAMCINOLONE ACET 0.1% CR 15 GM TUBE EXT SCH ×2 (08:27→20:29)
[2017-03-20] MEDS: DOXAZosin MESYLATE TAB 4 MG TAB PO SCH (08:27)
[2017-03-20] MEDS: FLUTICASONE PROPIONATE NA SPR 16 GM BTL SCH (08:28)
[2017-03-20] MEDS: PANTOprazole SOD 40 MG TAB PO SCH (08:29)
[2017-03-20] MEDS ORDERED: IPRATROPIUM BROMIDE/ALBUTEROL respimat INH INH PRN (08:45)
[2017-03-20] MEDS ORDERED: PANTOprazole SOD 40 MG TAB PO SCH (09:00)
[2017-03-20] MEDS: BUDESONIDE/FORMOTEROL FUMARATE 160/4.5 60 PUFFS/INHALER INH SCH ×2 (09:23→20:29)
--- NOTE | 2017-03-20 09:38 | Progress Note ---
Internal Med Progress Note Date of Service: Mar 20, 2017. Provider Documentation: SUBJECTIVE: Patient subjectively reports that he he felt bad when waking up in the morning. Denies chest pain. Reports subjective shortness of breath. Patient requesting his home inhalers because he reports that nebulizer treatments have not been working for him OBJECTIVE: Exam: General- no acute distress Eyes- EOMI ENT- no epistaxis, no exudates Neck- trachea midline Lungs- lung exams sound clear, no use of accessory muscles Chest - nontender to palpation Heart- regular rate Abdomen- soft, nontender, + bowel sounds Extremities- no edema Neuro- patient could not sit up for auscultation exam because he reports he is feeling shortness of breath ASSESSMENT & PLAN: Patient presented with complaints of shortness of breath and given Unasyn, nebs , steroids for pneumonia vs COPD, also history of pancytopenia s/p 1 unit PRBC, with acute Kidney injury improving on IV fluids CT Chest 1. Emphysematous change stable from the prior study. 2. Interval development of small bilateral pleural effusions. 3. Mid and lower lung basilar bronchiectatic change is stable to minimally progressive specifically in the right middle lobe region. 4. Apical and posterior lung bleb formation stable. Being followed by pulmonary service for COPD exacerbation Bronchiectasis Acute on chronic hypoxic hypercapnic respiratory failure Tobacco use disorder -pulmonary consult recommends bipap but patient had been doing well on nasal cannula, recheck blood gas this morning, patient may need BIPAP today even though he does not appear to be in respiratory distress -maintain SaO2 between 88-92% -Obtain pulmonary notes and PFT from [facility] -Continue with Symbicort, albuterol/Xopenex nebulizer every 4 hours -Mucomyst twice a day, chest vest and flutter valve for aggressive pulmonary toilet -obtain sputum culture Also was found to be anemic between admission CBCs Hgb 8.1 to 7 with no obvious source of bleeding an patient was transfused 1 unit of PRBC overnight. Subsequent rise in Hgb to 8.5. Follow up Hgb on same day 9. Today 8.2. Repeat CBC today history Pancytopenia Secondary to home Acetazolamide - drug associated with aplastic anemia) [id number] anemia. Hg noted to be dropping over the last several months on review of outpatient blood work. Hemoccult negative. Chronic thrombocytopenia. Leukopenia. Heme - oncology consult requested CHASITY Monitor creatinine response to IV fluids. Hold home Acetazolamide for now given kidney dysfunction and possible hematologic toxicity. Tachycardia this morning likely due to nebulizer treatments Echocardiogram * Left ventricular systolic function is normal. * Ejection Fraction = 55-60%. * The right ventricular cavity size is normal (basal dimension <4.2 cm in right ventricular apical 4-chamber view). * The right ventricular systolic function is qualitatively normal. * There is mild mitral regurgitation. * There is mild tricuspid regurgitation. * The estimated systolic PAP is 55mmHg. * Dilated IVC with normal inspiratory variation suggesting RA pressure of 8mmHg. GERD - pantoprazole Post nasal drip - flonase DVT ppx: SCDs Vital Signs: Date Time Temp Pulse Resp B/P (MAP) Pulse Ox O2 Delivery O2 Flow Rate FiO2 03/20/17 08:14 36.5 113 18 173/78 (109) 94 Nasal Cannula 3.0 03/20/17 04:20 36.9 70 18 135/71 (92) 100 Room Air 03/20/17 04:00 98 Nasal Cannula 3.0 03/20/17 00:15 36.7 72 16 131/60 (83) 99 Nasal Cannula 3.0 03/20/17 00:00 98 Nasal Cannula 3.0 03/19/17 23:31 36.7 70 19 100 2.0 03/19/17 20:01 36.7 70 19 153/84 (107) 100 03/19/17 20:00 100 Nasal Cannula 2.0 03/19/17 19:10 72 16 98 Nasal Cannula 2.0 03/19/17 16:02 36.7 79 18 131/68 (89) 100 Nasal Cannula 2.5 03/19/17 16:00 99 Nasal Cannula 2.0 03/19/17 12:24 36.7 90 20 124/67 (86) 99 Nasal Cannula 3.0 03/19/17 12:00 Nasal Cannula 3.0 Lab Results: Results Past 24 Hours Test 03/19/17 12:30 03/19/17 17:46 03/20/17 05:43 Range/Units Hemoglobin 8.5 9.0 8.2 14.0-18.0 g/dL Hematocrit 27.4 29.3 26.4 42-52 % White Blood Count 3.27 4.8-10.8 K/uL Red Blood Count 2.64 4.7-6.1 M/uL Mean Corpuscular Volume 100.0 80-100 fL Mean Corpuscular Hemoglobin 31.1 25-34 pg Mean Corpuscular Hemoglobin Concent 31.1 32-36 g/dl Platelet Count 72 130-400 K/uL Mean Platelet Volume 11.7 7.4-10.4 fL Neutrophils (%) (Auto) 61.2 % Lymphocytes (%) (Auto) 24.8 % Monocytes (%) (Auto) 12.5 % Eosinophils (%) (Auto) 0.9 % Basophils (%) (Auto) 0.3 % Neutrophils # (Auto) 2.00 1.4-6.5 K/uL Lymphocytes # (Auto) 0.81 1.2-3.4 K/uL Monocytes # (Auto) 0.41 0.11-0.59 K/uL Eosinophils # (Auto) 0.03 0-0.5 K/uL Basophils # (Auto) 0.01 0-0.2 K/uL RDW Standard Deviation 56.7 36.4-46.3 fL RDW Coefficient of Variation 15.5 11.5-14.5 % Immature Granulocyte % (Auto) 0.3 % Immature Granulocyte # (Auto) 0.01 0.00-0.02 K/uL Large Platelets 1+ Basophilic Stippling OCCASIONAL Sodium Level 146 136-145 mmol/L Potassium Level 4.2 3.5-5.1 mmol/L Chloride Level 110 98-107 mmol/L Carbon Dioxide Level 32 21-32 mmol/L Anion Gap 4.0 3-11 mmol/L Blood Urea Nitrogen 19 7-18 mg/dl Creatinine 1.54 0.60-1.40 mg/dl Est Creatinine Clear Calc Drug Dose 42.7 ml/min Estimated GFR () 51.1 Estimated GFR (Non- 44.1 BUN/Creatinine Ratio 12.1 10-20 Random Glucose 89 70-99 mg/dl Calcium Level 8.5 8.5-10.1 mg/dl
[2017-03-20 10:39] LABS: TRANSFERRIN 123 mg/dl (200-360)
--- NOTE | 2017-03-20 15:47 | DIAGNOSTIC IMAGING REPORT ---
VIDEO SWALLOW HISTORY: Bronchiectasis. Respiratory failure. Pneumonia. Suspected aspiration. TECHNIQUE: Video fluoroscopic evaluation of swallowing was performed in the AP and lateral projections by the speech pathology staff. The patient is fed nectar-thick and thin liquid barium, a barium coated wafer, and barium pudding. FLUOROSCOPY TIME: 1.9 minutes. NUMBER OF FLUOROSCOPY IMAGES: 0 COMPARISON STUDY: None. FINDINGS: With swallowing thin liquids, there was penetration but no evidence of aspiration. When swallowing nectar thick and pudding and a cracker with paste, the swallowing mechanics were within normal limits for age. There appeared to be disordered esophageal motility. IMPRESSION: 1. 1. Penetration of thin liquids. No evidence of aspiration. 2. Disordered esophageal motility 3. Please see the speech pathologist report for detailed findings and recommendations. Electronically signed by: Mohan Frank M.D. 03/20/2017 3:45 PM Dictated Date/Time: 03/20/2017 3:43 PM
--- NOTE | 2017-03-20 15:48 | Pulmonology Progress Note ---
Pulmonary Progress Note Date of Service Mar 20, 2017. Attending Dr. Cabral Subjective Patient seen and examined at bedside. Feeling much better today. Still having productive cough. He is not short of breath today. He denies any chest pain. Objective Vital signs reviewed. MAXIMUM TEMPERATURE 36.9, blood pressure 126/58 to 173/78 , pulse 70-113, respiratory rate 16-20, pulse oximetry 94-100 on 2 L nasal cannula. Gen.: Awake alert oriented 3, no acute respiratory distress, no use of accessory muscles of respiration. CVS: S1-S2 regular rate and rhythm Lungs: Decreased breath sounds bilaterally Abdomen: Soft, nontender, bowel sounds positive Extremities: No edema, no cyanosis, no clubbing Laboratory data reviewed. ABG 03/20/2017-pH 7.3/61/65/30/91.5% Imaging reviewed. TTE from 03/19/2017 * -- Conclusions -- * Left ventricular systolic function is normal. * Ejection Fraction = 55-60%. * The right ventricular cavity size is normal (basal dimension <4.2 cm in right ventricular apical 4-chamber view). * The right ventricular systolic function is qualitatively normal. * There is mild mitral regurgitation. * There is mild tricuspid regurgitation. * The estimated systolic PAP is 55mmHg. * Dilated IVC with normal inspiratory variation suggesting RA pressure of 8mmHg. Video swallow 03/20/2017-pending Medications reviewed. From a respiratory standpoint he is on fluticasone nasal spray, Symbicort 160/ 4.52 puffs twice a day, Combivent Respimat one puff every 4 hours when necessary , Mucomyst inhalation twice a day, prednisone 40 mg by mouth daily, Unasyn every 6 hours IV, ipratropium/levalbuterol every 6 hours Assessment & Plan COPD exacerbation Bronchiectasis Acute on chronic hypoxic hypercapnic respiratory failure Tobacco use disorder Diastolic dysfunction GERD Post nasal drip Mr. De La Cruz presents with worsening dyspnea on exertion and associated with hypoxia hypercapnic respiratory failure. Patient appears to be somewhat improved today. However still remains in respiratory acidosis. TTE shows pulmonary hypertension, this is likely type III from underlying COPD, bronchiectasis and hypoxemia. Please maintain SaO2 between 88-92%. At the current time I will place patient on BiPAP for hypercapnic respiratory failure. As she still remains in respiratory acidosis. This can be applied at night. He can be switched over to nasal cannula during the day. Follow-up sputum cultures. Patient appears to be somewhat improved. However still remains in respiratory acidosis. TTE shows pulmonary hypertension. This is likely secondary to underlying COPD with bronchiectasis and hypoxemia.Obtain a pulmonary notes and PFT from [facility]. Continue with antibiotics for 5-7 days. Continue with Symbicort, albuterol/Xopenex nebulizer every 4 hours Continue with Mucomyst twice a day, chest vest and flutter valve for aggressive pulmonary toilet. Continue with PPI for GERD and nasal spray for post nasal drip. Speech evaluation to rule out aspiration and video swallow pending Data Medications: Current Inpatient Medications Medications (Trade) Dose Ordered Sig/Rosemary Route Start Time Stop Time Status Last Admin Dose Admin Ampicillin Sodium/ Sulbactam Sodium 3000 mg/Sodium Chloride 108 ml @ 200 mls/hr Q6H IV 03/18/17 22:00 03/25/17 21:59 03/20/17 10:12 200 MLS/HR Acetaminophen (Tylenol Tab) 650 mg Q4H PRN PO 03/18/17 20:30 04/17/17 20:29 Hydromorphone HCl (Dilaudid Inj) 0.5 mg Q3H PRN IV 03/18/17 20:30 04/01/17 20:29 Tramadol HCl (Ultram Tab) 25 mg Q6H PRN PO 03/18/17 20:30 04/17/17 20:29 Ampicillin Sodium/ Sulbactam Sodium (Consult) 1 ea UD PRN N/A 03/18/17 20:45 04/17/17 20:44 Prednisone (PredniSONE TAB) 40 mg DAILY PO 03/19/17 09:00 03/24/17 08:59 03/20/17 08:29 40 MG Pantoprazole Sodium (Protonix Tab) 40 mg QAM PO 03/19/17 09:00 04/18/17 08:59 03/20/17 08:29 40 MG Triamcinolone Acetonide (Kenalog 0.1% Cream) 1 appln BID EXT 03/18/17 21:00 04/17/17 20:59 03/20/17 08:27 1 APPLN Doxazosin Mesylate (Cardura Tab) 8 mg DAILY PO 03/19/17 09:00 04/18/17 08:59 03/20/17 08:27 8 MG Miscellaneous Information (Order Awaiting Action) 1 ea QS N/A 03/19/17 00:00 04/18/17 00:00 Ipratropium [place] (Atrovent 0.02% 0.5MG/2.5ML Neb) 0.5 mg Q6R INH 03/18/17 21:00 04/17/17 20:59 03/19/17 19:10 0.5 MG Levalbuterol (Xopenex 1.25MG/ 0.5ML Neb) 1.25 mg Q6R INH 03/18/17 21:00 04/17/17 20:59 03/19/17 19:10 1.25 MG Acetylcysteine (Mucomyst 20% Inh Soln) 3 ml BIDR INH 03/19/17 20:00 04/18/17 19:59 03/19/17 19:10 3 ML Fluticasone Propionate (Flonase Nasal [place]) 1 sprays DAILY NA 03/20/17 09:00 04/19/17 08:59 03/20/17 08:28 1 SPRAYS Budesonide/ Formoterol Fumarate (Symbicort 160/ 4.5 Inh) 2 puffs BID INH 03/20/17 09:00 04/19/17 08:59 03/20/17 09:23 2 PUFFS Albuterol/ Ipratropium (Combivent Respimat Inh) 1 puffs Q4H PRN INH 03/20/17 08:45 04/19/17 08:44 03/20/17 09:23 1 PUFFS I & O: 24-Hour Column 03/21/17 07:59 Intake Total 40 ml Output Total 700 ml Balance -660 ml Vital Signs: Date Time Temp Pulse Resp B/P (MAP) Pulse Ox O2 Delivery O2 Flow Rate FiO2 03/20/17 15:15 36.2 93 16 128/60 (82) 94 3.0 03/20/17 12:00 Nasal Cannula 3.0 03/20/17 11:37 36.9 86 20 126/58 (80) 99 3.0 03/20/17 08:14 36.5 113 18 173/78 (109) 94 Nasal Cannula 3.0 03/20/17 08:00 Nasal Cannula 3.0 03/20/17 04:20 36.9 70 18 135/71 (92) 100 Room Air 03/20/17 04:00 98 Nasal Cannula 3.0 03/20/17 00:15 36.7 72 16 131/60 (83) 99 Nasal Cannula 3.0 03/20/17 00:00 98 Nasal Cannula 3.0 03/19/17 23:31 36.7 70 19 100 2.0 03/19/17 20:01 36.7 70 19 153/84 (107) 100 03/19/17 20:00 100 Nasal Cannula 2.0 03/19/17 19:10 72 16 98 Nasal Cannula 2.0 03/19/17 16:02 36.7 79 18 131/68 (89) 100 Nasal Cannula 2.5 03/19/17 16:00 99 Nasal Cannula 2.0 Laboratory Results: Last 24 Hours Test 03/19/17 17:46 03/20/17 05:43 03/20/17 10:03 Hemoglobin 9.0 g/dL 8.2 g/dL Hematocrit 29.3 % 26.4 % White Blood Count 3.27 K/uL Red Blood Count 2.64 M/uL Mean Corpuscular Volume 100.0 fL Mean Corpuscular Hemoglobin 31.1 pg Mean Corpuscular Hemoglobin Concent 31.1 g/dl Platelet Count 72 K/uL Mean Platelet Volume 11.7 fL Neutrophils (%) (Auto) 61.2 % Lymphocytes (%) (Auto) 24.8 % Monocytes (%) (Auto) 12.5 % Eosinophils (%) (Auto) 0.9 % Basophils (%) (Auto) 0.3 % Neutrophils # (Auto) 2.00 K/uL Lymphocytes # (Auto) 0.81 K/uL Monocytes # (Auto) 0.41 K/uL Eosinophils # (Auto) 0.03 K/uL Basophils # (Auto) 0.01 K/uL RDW Standard Deviation 56.7 fL RDW Coefficient of Variation 15.5 % Immature Granulocyte % (Auto) 0.3 % Immature Granulocyte # (Auto) 0.01 K/uL Large Platelets 1+ Basophilic Stippling OCCASIONAL Sodium Level 146 mmol/L Potassium Level 4.2 mmol/L Chloride Level 110 mmol/L Carbon Dioxide Level 32 mmol/L Anion Gap 4.0 mmol/L Blood Urea Nitrogen 19 mg/dl Creatinine 1.54 mg/dl Est Creatinine Clear Calc Drug Dose 42.7 ml/min Estimated GFR () 51.1 Estimated GFR (Non- 44.1 BUN/Creatinine Ratio 12.1 Random Glucose 89 mg/dl Calcium Level 8.5 mg/dl Iron Level 36 mcg/dl Total Iron Binding Capacity 182 mcg/dl Transferrin 123 mg/dl Transferrin % Saturation 21 % Arterial Blood pH 7.30 Arterial Blood Partial Pressure CO2 61 mmHg Arterial Blood Partial Pressure O2 65 mm/Hg Arterial Blood HCO3 30 mmol/L Arterial Blood Oxygen Saturation 91.5 % Arterial Blood Base Excess 2.7 mEq/L Arterial Blood Gas Delivery 3 L Howard Test POS
[2017-03-20 16:57] LABS: HEMATOCRIT 29.7 % (42-52); HEMOGLOBIN 8.9 g/dL (14.0-18.0); MEAN CELL VOLUME 98.3 fL (80-100); MEAN CORPUSCULAR HEMOGLOBIN 29.5 pg (25-34); RED CELL DISTRIBUTION WIDTH SD 53.8 fL (36.4-46.3); WHITE BLOOD COUNT 2.63 K/uL (4.8-10.8)
[2017-03-20 17:00] LABS: MEAN PLATELET VOLUME 11.5 fL (7.4-10.4); PLATELET COUNT 74 K/uL (130-400)
[2017-03-20] MEDS: ACETAMINOPHEN 325 MG TAB PO PRN (23:14)
[2017-03-21] VITALS (8 sets, daily range): BP systolic 113–160; BP diastolic 59–74; PULSE 63–78; TEMP 36.8–37.1; O2SAT 94–100
[2017-03-21] MEDS: LEVALBUTEROL 1.25MG/0.5ML NEB INH SCH ×2 (02:11→09:00)
[2017-03-21] MEDS: IPRATROPIUM BROMIDE NEB SOLN 0.02% 2.5 ML VIAL INH SCH ×2 (02:11→09:00)
[2017-03-21] MEDS: AMPICILLIN/SULBACTAM SOD INJ 3,000 MG in SODIUM CHLORIDE 0.9% 100ML 100 ML IV SCH ×4 (04:05→21:35)
[2017-03-21 06:03] LABS: HEMOGLOBIN 8.4 g/dL (14.0-18.0); MEAN CELL VOLUME 98.9 fL (80-100); MEAN CORPUSCULAR HEMOGLOBIN 30.8 pg (25-34); MEAN CORPUSCULAR HGB CONC 31.1 g/dl (32-36); RED CELL DISTRIBUTION WIDTH CV 15.1 % (11.5-14.5); RED CELL DISTRIBUTION WIDTH SD 54.5 fL (36.4-46.3); WHITE BLOOD COUNT 3.54 K/uL (4.8-10.8)
[2017-03-21 06:05] LABS: BASO % 0.3 %; BASO ABS # 0.01 K/uL (0-0.2); EOS % 1.4 %; EOS ABS # 0.05 K/uL (0-0.5); IG# 0.02 K/uL (0.00-0.02); LYMPH % 22.3 %; LYMPH ABS # 0.79 K/uL (1.2-3.4); MEAN PLATELET VOLUME 10.9 fL (7.4-10.4); MONO % 10.5 %; MONO ABS # 0.37 K/uL (0.11-0.59); NEUT % 64.9 %; PLATELET COUNT 73 K/uL (130-400)
[2017-03-21 06:36] LABS: CALCIUM 8.2 mg/dl (8.5-10.1); CREATININE 1.51 mg/dl (0.60-1.40); POTASSIUM 3.9 mmol/L (3.5-5.1)
[2017-03-21] MEDS: BUDESONIDE/FORMOTEROL FUMARATE 160/4.5 60 PUFFS/INHALER INH SCH ×2 (07:32→21:00)
[2017-03-21] MEDS: DOXAZosin MESYLATE TAB 4 MG TAB PO SCH (07:33)
[2017-03-21] MEDS: PANTOprazole SOD 40 MG TAB PO SCH (07:33)
[2017-03-21] MEDS: FLUTICASONE PROPIONATE NA SPR 16 GM BTL SCH (07:33)
[2017-03-21] MEDS: TRIAMCINOLONE ACET 0.1% CR 15 GM TUBE EXT SCH ×2 (07:34→21:35)
[2017-03-21] MEDS: ACETYLCYSTEINE 20% INHAL SOLN ***DISPENSED BY RESP. INH SCH (08:00)
--- NOTE | 2017-03-21 09:50 | Progress Note ---
Medicine Progress Note Date & Time of Visit: Mar 21, 2017 at 09:35 . Subjective Weak. Dyspneic with minimal exertion. No fever. Cough improved. Appetite poor. Dysphagia to solids. Intermittent nausea, no emesis. No diarrhea. No urinary symptoms. . Objective Last 8 Hrs Date Time Temp Pulse Resp B/P (MAP) Pulse Ox O2 Delivery O2 Flow Rate FiO2 03/21/17 08:00 Nasal Cannula 2.0 03/21/17 07:30 36.8 77 16 160/60 (93) 98 Nasal Cannula 2.0 03/21/17 04:11 36.9 67 16 113/61 (78) 100 Nasal Cannula 2.0 03/21/17 04:00 Nasal Cannula 2.0 Physical Exam: General- lying in bed, no acute distress Eyes- anicteric ENT-[] Neck- no JVD Lungs- diffuse wheezing, no resp distress Heart- RRR, no gallop Abdomen- + BS, soft, nontender Extremities- no pretibial edema or calf tenderness Skin- warm and dry Neuro- alert . Laboratory Results: Last 24 Hours Test 03/20/17 10:03 03/20/17 16:32 03/21/17 05:52 Arterial Blood pH 7.30 Arterial Blood Partial Pressure CO2 61 mmHg Arterial Blood Partial Pressure O2 65 mm/Hg Arterial Blood HCO3 30 mmol/L Arterial Blood Oxygen Saturation 91.5 % Arterial Blood Base Excess 2.7 mEq/L Arterial Blood Gas Delivery 3 L Howard Test POS White Blood Count 2.63 K/uL 3.54 K/uL Red Blood Count 3.02 M/uL 2.73 M/uL Hemoglobin 8.9 g/dL 8.4 g/dL Hematocrit 29.7 % 27.0 % Mean Corpuscular Volume 98.3 fL 98.9 fL Mean Corpuscular Hemoglobin 29.5 pg 30.8 pg Mean Corpuscular Hemoglobin Concent 30.0 g/dl 31.1 g/dl RDW Standard Deviation 53.8 fL 54.5 fL RDW Coefficient of Variation 15.0 % 15.1 % Platelet Count 74 K/uL 73 K/uL Mean Platelet Volume 11.5 fL 10.9 fL Neutrophils (%) (Auto) 64.9 % Lymphocytes (%) (Auto) 22.3 % Monocytes (%) (Auto) 10.5 % Eosinophils (%) (Auto) 1.4 % Basophils (%) (Auto) 0.3 % Neutrophils # (Auto) 2.30 K/uL Lymphocytes # (Auto) 0.79 K/uL Monocytes # (Auto) 0.37 K/uL Eosinophils # (Auto) 0.05 K/uL Basophils # (Auto) 0.01 K/uL Immature Granulocyte % (Auto) 0.6 % Immature Granulocyte # (Auto) 0.02 K/uL Hypochromasia PRESENT Sodium Level 146 mmol/L Potassium Level 3.9 mmol/L Chloride Level 109 mmol/L Carbon Dioxide Level 34 mmol/L Anion Gap 3.0 mmol/L Blood Urea Nitrogen 22 mg/dl Creatinine 1.51 mg/dl Est Creatinine Clear Calc Drug Dose 37.2 ml/min Estimated GFR () 52.4 Estimated GFR (Non- 45.2 BUN/Creatinine Ratio 14.6 Random Glucose 89 mg/dl Calcium Level 8.2 mg/dl Assessment & Plan EXACERBATION COPD Secondary to bronchiectasis. Continue ampicillin / sulbactam. Patient prefers not to use nebs. Continue Combivent and Symbicort. Continue prednisone. CHRONIC HYPOXIC + HYPERCAPNIC RESPIRATORY FAILURE Due to COPD. Continue supplemental O2. Consider BiPAP. ACUTE KIDNEY INJURY Baseline creatinine ~ 1.0 in 2016. Serum creatine at time of admission 1.72. Creatinine today = 1.51. Follow. DYSPHAGIA Esophageal dysmotility noted on video swallow. Slippery diet. Consider barium swallow or EGD when pulmonary status improved. GERD Continue PPI. PANCYTOPENIA Hematology consult requested. VTE PROPHYLAXIS SCD's. DISPOSITION Unable to be discharged to home at this time. Anticipate need for skilled care or rehab. Case Management consulted. Family Medicine follow-up with Dr. Ashley. . Current Inpatient Medications: Current Inpatient Medications Medications (Trade) Dose Ordered Sig/Rosemary Route Start Time Stop Time Status Last Admin Dose Admin Ampicillin Sodium/ Sulbactam Sodium 3000 mg/Sodium Chloride 108 ml @ 200 mls/hr Q6H IV 03/18/17 22:00 03/25/17 21:59 03/21/17 04:05 200 MLS/HR Acetaminophen (Tylenol Tab) 650 mg Q4H PRN PO 03/18/17 20:30 04/17/17 20:29 03/20/17 23:14 650 MG Hydromorphone HCl (Dilaudid Inj) 0.5 mg Q3H PRN IV 03/18/17 20:30 04/01/17 20:29 Tramadol HCl (Ultram Tab) 25 mg Q6H PRN PO 03/18/17 20:30 04/17/17 20:29 Ampicillin Sodium/ Sulbactam Sodium (Consult) 1 ea UD PRN N/A 03/18/17 20:45 04/17/17 20:44 Prednisone (PredniSONE TAB) 40 mg DAILY PO 03/19/17 09:00 03/24/17 08:59 03/21/17 07:33 40 MG Pantoprazole Sodium (Protonix Tab) 40 mg QAM PO 03/19/17 09:00 04/18/17 08:59 03/21/17 07:33 40 MG Triamcinolone Acetonide (Kenalog 0.1% Cream) 1 appln BID EXT 03/18/17 21:00 04/17/17 20:59 03/21/17 07:34 1 APPLN Doxazosin Mesylate (Cardura Tab) 8 mg DAILY PO 03/19/17 09:00 04/18/17 08:59 03/21/17 07:33 8 MG Miscellaneous Information (Order Awaiting Action) 1 ea QS N/A 03/19/17 00:00 04/18/17 00:00 Ipratropium [place] (Atrovent 0.02% 0.5MG/2.5ML Neb) 0.5 mg Q6R INH 03/18/17 21:00 04/17/17 20:59 03/19/17 19:10 0.5 MG Levalbuterol (Xopenex 1.25MG/ 0.5ML Neb) 1.25 mg Q6R INH 03/18/17 21:00 04/17/17 20:59 03/19/17 19:10 1.25 MG Acetylcysteine (Mucomyst 20% Inh Soln) 3 ml BIDR INH 03/19/17 20:00 04/18/17 19:59 03/19/17 19:10 3 ML Fluticasone Propionate (Flonase Nasal [place]) 1 sprays DAILY NA 03/20/17 09:00 04/19/17 08:59 03/21/17 07:33 1 SPRAYS Budesonide/ Formoterol Fumarate (Symbicort 160/ 4.5 Inh) 2 puffs BID INH 03/20/17 09:00 04/19/17 08:59 03/21/17 07:32 2 PUFFS Albuterol/ Ipratropium (Combivent Respimat Inh) 1 puffs Q4H PRN INH 03/20/17 08:45 04/19/17 08:44 03/20/17 09:23 1 PUFFS
[2017-03-21] MEDS: IPRATROPIUM BROMIDE/ALBUTEROL respimat INH INH SCH ×4 (10:15→21:00)
[2017-03-21] MEDS ORDERED: BOOST VANILLA PUDDING CUP PO SCH ×2 (14:00→18:30)
[2017-03-21] MEDS ORDERED: BOOST VANILLA PO SCH (14:00)
[2017-03-21] MEDS ORDERED: LEVALBUTEROL 1.25MG/0.5ML NEB INH PRN (15:00)
--- NOTE | 2017-03-21 17:46 | Pulmonology Progress Note ---
Pulmonary Progress Note Date of Service Mar 21, 2017. Attending Subjective Patient seen and examined this morning. He states that he is feeling much better. Shortness of breath has improved. He is less dyspneic on exertion. He has decreased cough and denies any chest pain. Per nursing staff he is noncompliant with nebulizer treatments and refusing BiPAP. Objective Vital signs reviewed. MAXIMUM TEMPERATURE 37.1, blood pressure 113/61 to 160/60 , pulse 63-77, respiratory rate 16-20, pulse oximetry 98-100% on 2-3 L nasal cannula. Gen.: Awake alert oriented 3, no acute respiratory distress, no use of accessory muscles of respiration. CVS: S1-S2 regular rate and rhythm Lungs: Decreased breath sounds bilaterally Abdomen: Soft, nontender, bowel sounds positive Extremities: No edema, no cyanosis, no clubbing Laboratory data reviewed. Hemoglobin 8.4, platelet count 73 Sodium 146, chloride 109, carbon dioxide 34, BUN 22, creatinine 1.51. ABG 03/20/2017-pH 7.3/61/65/30/91.5% Sputum culture 03/21/2017-pending Imaging reviewed. TTE from 03/19/2017 * -- Conclusions -- * Left ventricular systolic function is normal. * Ejection Fraction = 55-60%. * The right ventricular cavity size is normal (basal dimension <4.2 cm in right ventricular apical 4-chamber view). * The right ventricular systolic function is qualitatively normal. * There is mild mitral regurgitation. * There is mild tricuspid regurgitation. * The estimated systolic PAP is 55mmHg. * Dilated IVC with normal inspiratory variation suggesting RA pressure of 8mmHg. Video swallow 03/20/2017 1. Penetration of thin liquids. No evidence of aspiration. 2. Disordered esophageal motility Medications reviewed. From a respiratory standpoint he is on fluticasone nasal spray, Symbicort 160/ 4.52 puffs twice a day, Combivent Respimat one puff every 4 hours when necessary , prednisone 40 mg by mouth daily, Unasyn every 6 hours IV, Xopenex every 6 hours when necessary Assessment & Plan COPD exacerbation-improving Bronchiectasis Acute on chronic hypoxic hypercapnic respiratory failure-improving Tobacco use disorder Diastolic dysfunction GERD Post nasal drip Pulmonary hypertension Mr. De La Cruz presents with worsening dyspnea on exertion and associated with hypoxia hypercapnic respiratory failure. He appears to be improving from a respiratory standpoint. Continue to maintain his SaO2 between 88-92% with nasal cannula, titrate as tolerated For hypercapnia encourage BiPAP use at night, if he is able to tolerate. Sputum culture pending, follow-up Obtain a pulmonary notes and PFT from [facility]. Continue with antibiotics for 5-7 days. Continue with Symbicort, albuterol/Xopenex nebulizer every 4 hours Continue with PPI for GERD and nasal spray for post nasal drip. I will signoff case today. Please contact with any further questions or concerns. Discussed with Dr. Kelley. Data Medications: Current Inpatient Medications Medications (Trade) Dose Ordered Sig/Rosemary Route Start Time Stop Time Status Last Admin Dose Admin Ampicillin Sodium/ Sulbactam Sodium 3000 mg/Sodium Chloride 108 ml @ 200 mls/hr Q6H IV 03/18/17 22:00 03/25/17 21:59 03/21/17 16:02 200 MLS/HR Acetaminophen (Tylenol Tab) 650 mg Q4H PRN PO 03/18/17 20:30 04/17/17 20:29 03/20/17 23:14 650 MG Hydromorphone HCl (Dilaudid Inj) 0.5 mg Q3H PRN IV 03/18/17 20:30 04/01/17 20:29 Tramadol HCl (Ultram Tab) 25 mg Q6H PRN PO 03/18/17 20:30 04/17/17 20:29 Ampicillin Sodium/ Sulbactam Sodium (Consult) 1 ea UD PRN N/A 03/18/17 20:45 04/17/17 20:44 Prednisone (PredniSONE TAB) 40 mg DAILY PO 03/19/17 09:00 03/24/17 08:59 03/21/17 07:33 40 MG Pantoprazole Sodium (Protonix Tab) 40 mg QAM PO 03/19/17 09:00 04/18/17 08:59 03/21/17 07:33 40 MG Triamcinolone Acetonide (Kenalog 0.1% Cream) 1 appln BID EXT 03/18/17 21:00 04/17/17 20:59 03/21/17 07:34 1 APPLN Doxazosin Mesylate (Cardura Tab) 8 mg DAILY PO 03/19/17 09:00 04/18/17 08:59 03/21/17 07:33 8 MG Miscellaneous Information (Order Awaiting Action) 1 ea QS N/A 03/19/17 00:00 04/18/17 00:00 Fluticasone Propionate (Flonase Nasal [place]) 1 sprays DAILY NA 03/20/17 09:00 04/19/17 08:59 03/21/17 07:33 1 SPRAYS Budesonide/ Formoterol Fumarate (Symbicort 160/ 4.5 Inh) 2 puffs BID INH 03/20/17 09:00 04/19/17 08:59 03/21/17 07:32 2 PUFFS Levalbuterol (Xopenex 1.25MG/ 0.5ML Neb) 1.25 mg Q6H PRN INH 03/21/17 15:00 04/17/17 20:59 Albuterol/ Ipratropium (Combivent Respimat Inh) 1 puffs QID INH 03/21/17 10:15 04/19/17 08:44 03/21/17 13:12 1 PUFFS Enteral Nutritional Formula (Boost) 1 can TID PO 03/21/17 14:00 04/20/17 13:59 03/21/17 13:24 1 CAN Enteral Nutritional Formula (Boost Pudding) 1 cup TID PO 03/21/17 14:00 04/20/17 13:59 I & O: 24-Hour Column 03/22/17 08:00 Intake Total 350 ml Output Total 525 ml Balance -175 ml Vital Signs: Date Time Temp Pulse Resp B/P (MAP) Pulse Ox O2 Delivery O2 Flow Rate FiO2 03/21/17 16:00 Nasal Cannula 2.0 03/21/17 15:55 36.9 77 20 139/72 (94) 99 Nasal Cannula 3.0 03/21/17 12:38 37.0 71 18 152/67 (95) 99 Nasal Cannula 3.0 03/21/17 12:00 Nasal Cannula 2.0 03/21/17 08:00 Nasal Cannula 2.0 03/21/17 07:30 36.8 77 16 160/60 (93) 98 Nasal Cannula 2.0 03/21/17 04:11 36.9 67 16 113/61 (78) 100 Nasal Cannula 2.0 03/21/17 04:00 Nasal Cannula 2.0 03/21/17 00:11 37.1 63 18 129/59 (82) 99 Nasal Cannula 2.0 03/21/17 00:00 Nasal Cannula 3.0 03/20/17 20:00 Nasal Cannula 3.0 03/20/17 19:54 37.1 75 18 135/52 (79) 98 Nasal Cannula 2.0 Laboratory Results: Last 24 Hours Test 03/21/17 05:52 White Blood Count 3.54 K/uL Red Blood Count 2.73 M/uL Hemoglobin 8.4 g/dL Hematocrit 27.0 % Mean Corpuscular Volume 98.9 fL Mean Corpuscular Hemoglobin 30.8 pg Mean Corpuscular Hemoglobin Concent 31.1 g/dl Platelet Count 73 K/uL Mean Platelet Volume 10.9 fL Neutrophils (%) (Auto) 64.9 % Lymphocytes (%) (Auto) 22.3 % Monocytes (%) (Auto) 10.5 % Eosinophils (%) (Auto) 1.4 % Basophils (%) (Auto) 0.3 % Neutrophils # (Auto) 2.30 K/uL Lymphocytes # (Auto) 0.79 K/uL Monocytes # (Auto) 0.37 K/uL Eosinophils # (Auto) 0.05 K/uL Basophils # (Auto) 0.01 K/uL RDW Standard Deviation 54.5 fL RDW Coefficient of Variation 15.1 % Immature Granulocyte % (Auto) 0.6 % Immature Granulocyte # (Auto) 0.02 K/uL Hypochromasia PRESENT Sodium Level 146 mmol/L Potassium Level 3.9 mmol/L Chloride Level 109 mmol/L Carbon Dioxide Level 34 mmol/L Anion Gap 3.0 mmol/L Blood Urea Nitrogen 22 mg/dl Creatinine 1.51 mg/dl Est Creatinine Clear Calc Drug Dose 37.2 ml/min Estimated GFR () 52.4 Estimated GFR (Non- 45.2 BUN/Creatinine Ratio 14.6 Random Glucose 89 mg/dl Calcium Level 8.2 mg/dl
--- NOTE | 2017-03-21 18:05 | Medical Consult ---
Consultation Date of Consultation: Mar 21, 2017. Attending Physician: Mando Kelley M.D. History of Present Illness Hematology/Oncology consult: Evaluation management of pancytopenia. Date of consultation: 03/21/[address] Adkins HPI: 71-year-old male, a case of COPD, admitted at [facility] on 03/18/2017 for acute exacerbation of underlying COPD, hematology consultation requested for progressive pancytopenia. I saw him at bedside today morning. I reviewed his medical records. Sitting comfortably in the chair receiving nasal can supplement option at 3 L/min. Earlier blood workup done in 2013 and 2015 showed normal blood counts. He had a normal platelet count at that time. Hemoglobin level was slightly on the lower side between 10-11 g/dL in May, but platelet count dropped down to around 107,000 in May,. WBC count was around 6300 at that time, MCV 97. He was admitted at [facility] between 06/07/2015-06/18/2015 for acute exacerbation of COPD, left ureteric stone, bronchiectasis with IgG immunoglobulin deficiency, metabolic alkalosis with respiratory acidosis. During that time platelet count was around 90,000, normal white blood cell count , hemoglobin level was around 11-12 g/dL at that time Now he is admitted on 03/18/2017, blood workup on admission showed WBC 2800, hemoglobin level is around 8.1, [place] 104, [place] [address]. In the last 4 days white blood cell count has remained on the lower side around 3500, he received 1 unit of PRBC on 03/19/2017 when hemoglobin level dropped down to around 7 g/dL, platelet count has remained low around 75,000. He denies any bleeding from any sites. Presently he is on oral prednisone therapy. He was on acetazolamide earlier when he was admitted at [facility] in May,, with the recent the pancytopenia current it has been discontinued during this hospitalization. Regarding his pulmonary condition mainly in the form of hypoxic hypercapnic respiratory failure, he is gradually recovering, -CT scan of chest done on 03/19/2017 showed stable emphysematous changes, small bilateral pleural effusion noted. Bronchiectasis changes noted. No fever, no night sweats. REVIEW OF SYSTEMS: GENERAL: No change in weight, feeling weak and tired but gradually improving, no fever, sweats or chills. SKIN: No skin rash, no bruising. HEAD: No new headache, no dizziness. EYES: No recent change in the vision, no diplopia, no cataract surgery in the past. EARS: No earache no tinnitus, NOSE: No epistaxis, No nasal discharge or stuffiness, MOUTH: No sores, no dysphagia, no hoarseness of voice, NECK: No lumps, No swelling in thyroid area. No stiffness. PULMONARY: Cough with scanty white expectant, no hemoptysis, denies any increasing chest pain, wheezing present. CARDIOVASCULAR: No anginal chest pain, no PND, no orthopnea. No palpitation, leg edema present. No syncope. GASTROINTESTINAL: No abdominal pain, no nausea or vomiting. No diarrhea, No constipation. No blood in stool or black tarry stools. No abdominal distention. UROLOGIC: No burning urination. No hematuria. MUSCULOSKELETAL: No joint pain, No joint swelling, no muscle weakness. HEMATOLOGIC: No anemia, no bleeding disorder, No bruising. No history of blood transfusion. NEUROLOGIC: No seizures, no focal weakness, no speech difficulty, No memory disturbances. No tingling or numbness of the extremities. PSYCHIATRIC: No depression. No anxiety. No psychosis. SLEEP: No sleep disorder. Past medical and surgical history: COPD diverticulosis, IgG deficiency, kidney stone disease, GERD, pulmonary hypertension, also Social history: Smokes few cigarettes, perhaps 2 in a day, denies any ETOH abuse Family history: Not significant Medications: Please review his chart for detailed list of medications. Allergies: None. On exam: - Alert and oriented x3, thin built man, not in any distress. - HEENT: no icterus, no pallor, Throat: Normal. - Neck: No palpable cervical lymphadenopathy. - Chest: Emphysematous chest noted - Abdomen: soft, nontender, no hepatomegaly, no splenomegaly. - No focal neuro deficit. - Extremities: no finger clubbing, no leg edema. Lab: -Absolute reticulocyte count--> 0.06 which is in normal range (03/19/2017) -peripheral smear reviewed by pathologist on 03/18/2017--> no suspicious findings noted. No definite dysplastic changes noted, no blast noted. No immature WBCs noted -Vitamin B12--> 559, Folic acid 10.5 (03/19/2017) -serum iron 35, TIBC 178, iron saturation 22%, Ferritin level 178 (03/19/2017) -Normal liver function test. Previous blood workup: Blood workup done on 07/04/2016: -WBC 3300, H&H of 9.5/30.8, MCV 101, Platelet count of 126,000. -Vitamin B12--> 377, Folic acid 8.2 -BUN/Creat: 29/1.3, calcium 9.0, normal liver function test. -IgG--> 784 (10/29/2015). -HIV--> negative (February,) -hepatitis-C--> negative. -IgG 430, IgA 234, IgM 41, rheumatoid factor negative (May,) Imaging: -CT scan of the abdomen pelvis done in June, showed multiple small calculi noted in the left ureterovesical junction measuring up to 4 mm with left hydronephrosis. No splenomegaly reported no liver lesions noted, compression fracture of L1 noted. Enlargement of prostate noted ASSESSMENT AND PLAN: 71-year-old the male, who is admitted at [facility] for acute on chronic respiratory failure related underlying COPD with exacerbation, also has some IgG deficiency, he was on IV mammaglobin therapy in the past but not sure whether he is on immunoglobins therapy at this time or not, on nasal supplemental oxygen at home at 3 liters/minute. When he was admitted at [facility] in early 2015, he had mild thrombocytopenia with a platelet count around 90,000-120,000 within normal white blood cell count, mild anemia with hemoglobin level between 11-12 g/dL. Now he has worsening pancytopenia, macrocytosis, peripheral smear is unremarkable, normal Vitamin B12 and Folic acid level, has abnormal kidney function test with serum creatinine level around 1.5 mg/dL, normal liver function test. He was on acetazolamide (which can cause bone marrow suppression) since early 2015 which has been discontinued during this hospitalization but I doubt that his current the blood count is related to the acetazolamide therapy but now he is not on that medication, will see whether her blood count improved in the next the few weeks. If he continues to have pancytopenia, primary bone marrow disorder in the form myeloid dysplastic syndrome would be possible and he will need bone marrow that can be done as an outpatient. Will see her back in the office and decide about further diagnostic workup. Thanks for the consultation. Dr. Lorenzo Kumar Hem/Onc (This note was completed using the dictation program Fluency Direct. As such, there may be misspellings, word substitutions, or other variations that should not change the essence of the clinical content of this encounter note. If there is need for further clarification, please direct questions to the provider listed above.) Past Medical/Surgical History Medical Problems: (1) COPD exacerbation Status: Acute (2) Hypoxia Status: Acute (3) Pancytopenia Status: Acute (4) Pneumonia Status: Acute Family History Diabetes mellitus FH: heart disease Social History Smoking Status: Current Every Day Smoker Marital Status: single Occupation Status: retired Allergies Coded Allergies: POLLEN (Verified Allergy, Unknown, SEASONAL ALLERGIES, 03/18/17) Lactose Intolerance (Verified Adverse Reaction, Intermediate, GI SYMPTOMS , 03/18/17) Current Inpatient Medications Current Inpatient Medications Medications (Trade) Dose Ordered Sig/Rosemary Route Start Time Stop Time Status Last Admin Dose Admin Ampicillin Sodium/ Sulbactam Sodium 3000 mg/Sodium Chloride 108 ml @ 200 mls/hr Q6H IV 03/18/17 22:00 03/25/17 21:59 03/21/17 16:02 200 MLS/HR Acetaminophen (Tylenol Tab) 650 mg Q4H PRN PO 03/18/17 20:30 04/17/17 20:29 03/20/17 23:14 650 MG Hydromorphone HCl (Dilaudid Inj) 0.5 mg Q3H PRN IV 03/18/17 20:30 04/01/17 20:29 Tramadol HCl (Ultram Tab) 25 mg Q6H PRN PO 03/18/17 20:30 04/17/17 20:29 Ampicillin Sodium/ Sulbactam Sodium (Consult) 1 ea UD PRN N/A 03/18/17 20:45 04/17/17 20:44 Prednisone (PredniSONE TAB) 40 mg DAILY PO 03/19/17 09:00 03/24/17 08:59 03/21/17 07:33 40 MG Pantoprazole Sodium (Protonix Tab) 40 mg QAM PO 03/19/17 09:00 04/18/17 08:59 03/21/17 07:33 40 MG Triamcinolone Acetonide (Kenalog 0.1% Cream) 1 appln BID EXT 03/18/17 21:00 04/17/17 20:59 03/21/17 07:34 1 APPLN Doxazosin Mesylate (Cardura Tab) 8 mg DAILY PO 03/19/17 09:00 04/18/17 08:59 03/21/17 07:33 8 MG Miscellaneous Information (Order Awaiting Action) 1 ea QS N/A 03/19/17 00:00 04/18/17 00:00 Fluticasone Propionate (Flonase Nasal [place]) 1 sprays DAILY NA 03/20/17 09:00 04/19/17 08:59 03/21/17 07:33 1 SPRAYS Budesonide/ Formoterol Fumarate (Symbicort 160/ 4.5 Inh) 2 puffs BID INH 03/20/17 09:00 04/19/17 08:59 03/21/17 07:32 2 PUFFS Levalbuterol (Xopenex 1.25MG/ 0.5ML Neb) 1.25 mg Q6H PRN INH 03/21/17 15:00 04/17/17 20:59 Albuterol/ Ipratropium (Combivent Respimat Inh) 1 puffs QID INH 03/21/17 10:15 04/19/17 08:44 03/21/17 17:40 1 PUFFS Enteral Nutritional Formula (Boost) 1 can TID PO 03/21/17 14:00 04/20/17 13:59 03/21/17 13:24 1 CAN Enteral Nutritional Formula (Boost Pudding) 1 cup TID PO 03/21/17 14:00 04/20/17 13:59 Physical Exam Date Time Temp Pulse Resp B/P (MAP) Pulse Ox O2 Delivery O2 Flow Rate FiO2 03/21/17 16:00 Nasal Cannula 2.0 03/21/17 15:55 36.9 77 20 139/72 (94) 99 Nasal Cannula 3.0 03/21/17 12:38 37.0 71 18 152/67 (95) 99 Nasal Cannula 3.0 03/21/17 12:00 Nasal Cannula 2.0 03/21/17 08:00 Nasal Cannula 2.0 03/21/17 07:30 36.8 77 16 160/60 (93) 98 Nasal Cannula 2.0 03/21/17 04:11 36.9 67 16 113/61 (78) 100 Nasal Cannula 2.0 03/21/17 04:00 Nasal Cannula 2.0 03/21/17 00:11 37.1 63 18 129/59 (82) 99 Nasal Cannula 2.0 03/21/17 00:00 Nasal Cannula 3.0 03/20/17 20:00 Nasal Cannula 3.0 03/20/17 19:54 37.1 75 18 135/52 (79) 98 Nasal Cannula 2.0 Laboratory Results Last 24 Hours Test 03/21/17 05:52 White Blood Count 3.54 K/uL Red Blood Count 2.73 M/uL Hemoglobin 8.4 g/dL Hematocrit 27.0 % Mean Corpuscular Volume 98.9 fL Mean Corpuscular Hemoglobin 30.8 pg Mean Corpuscular Hemoglobin Concent 31.1 g/dl Platelet Count 73 K/uL Mean Platelet Volume 10.9 fL Neutrophils (%) (Auto) 64.9 % Lymphocytes (%) (Auto) 22.3 % Monocytes (%) (Auto) 10.5 % Eosinophils (%) (Auto) 1.4 % Basophils (%) (Auto) 0.3 % Neutrophils # (Auto) 2.30 K/uL Lymphocytes # (Auto) 0.79 K/uL Monocytes # (Auto) 0.37 K/uL Eosinophils # (Auto) 0.05 K/uL Basophils # (Auto) 0.01 K/uL RDW Standard Deviation 54.5 fL RDW Coefficient of Variation 15.1 % Immature Granulocyte % (Auto) 0.6 % Immature Granulocyte # (Auto) 0.02 K/uL Hypochromasia PRESENT Sodium Level 146 mmol/L Potassium Level 3.9 mmol/L Chloride Level 109 mmol/L Carbon Dioxide Level 34 mmol/L Anion Gap 3.0 mmol/L Blood Urea Nitrogen 22 mg/dl Creatinine 1.51 mg/dl Est Creatinine Clear Calc Drug Dose 37.2 ml/min Estimated GFR () 52.4 Estimated GFR (Non- 45.2 BUN/Creatinine Ratio 14.6 Random Glucose 89 mg/dl Calcium Level 8.2 mg/dl
[2017-03-22] VITALS (8 sets, daily range): BP systolic 128–157; BP diastolic 61–71; PULSE 60–89; TEMP 36.7–37.2; O2SAT 94–100
[2017-03-22] MEDS ORDERED: NURSING VERBAL MED ORDER ONE
[2017-03-22] MEDS ORDERED: SODIUM CHLORIDE 0.65% NA SOLN 45 ML (OCEAN) PRN (02:15)
[2017-03-22] MEDS: AMPICILLIN/SULBACTAM SOD INJ 3,000 MG in SODIUM CHLORIDE 0.9% 100ML 100 ML IV SCH ×4 (04:40→22:04)
[2017-03-22 06:23] LABS: CALCIUM 7.9 mg/dl (8.5-10.1); CREATININE 1.45 mg/dl (0.60-1.40); POTASSIUM 3.4 mmol/L (3.5-5.1)
[2017-03-22 06:39] LABS: BASO % 0.3 %; BASO ABS # 0.01 K/uL (0-0.2); EOS % 0.8 %; EOS ABS # 0.03 K/uL (0-0.5); HEMATOCRIT 26.6 % (42-52); HEMOGLOBIN 8.4 g/dL (14.0-18.0); IG# 0.01 K/uL (0.00-0.02); LYMPH % 20.4 %; LYMPH ABS # 0.81 K/uL (1.2-3.4); MEAN CELL VOLUME 98.5 fL (80-100); MEAN CORPUSCULAR HEMOGLOBIN 31.1 pg (25-34); MEAN CORPUSCULAR HGB CONC 31.6 g/dl (32-36); MEAN PLATELET VOLUME 12.1 fL (7.4-10.4); MONO % 12.1 %; MONO ABS # 0.48 K/uL (0.11-0.59); NEUT % 66.1 %; NEUT ABS # 2.63 K/uL (1.4-6.5); PLATELET COUNT 75 K/uL (130-400); RED CELL DISTRIBUTION WIDTH CV 14.9 % (11.5-14.5); RED CELL DISTRIBUTION WIDTH SD 53.5 fL (36.4-46.3); WHITE BLOOD COUNT 3.97 K/uL (4.8-10.8)
[2017-03-22] MEDS ORDERED: BOOST VANILLA PO SCH (08:00)
[2017-03-22] MEDS: BUDESONIDE/FORMOTEROL FUMARATE 160/4.5 60 PUFFS/INHALER INH SCH ×2 (08:18→20:34)
[2017-03-22] MEDS: FLUTICASONE PROPIONATE NA SPR 16 GM BTL SCH (08:19)
[2017-03-22] MEDS: TRIAMCINOLONE ACET 0.1% CR 15 GM TUBE EXT SCH ×2 (08:19→20:34)
[2017-03-22] MEDS: IPRATROPIUM BROMIDE/ALBUTEROL respimat INH INH SCH ×4 (08:19→20:34)
[2017-03-22] MEDS: PANTOprazole SOD 40 MG TAB PO SCH (08:19)
[2017-03-22] MEDS: DOXAZosin MESYLATE TAB 4 MG TAB PO SCH (08:20)
[2017-03-22] MEDS: BOOST VANILLA PO SCH (16:36)
--- NOTE | 2017-03-22 20:27 | Progress Note ---
Medicine Progress Note Date & Time of Visit: Mar 22, 2017 at 18:40 . Subjective Feels a little better today. No fever. Cough improved. Less SOB. No chest pain. Swallowing more easily. No nausea or vomiting. No diarrhea. Experiencing urinary frequency about q 1 hour. . Objective Last 8 Hrs Date Time Temp Pulse Resp B/P (MAP) Pulse Ox O2 Delivery O2 Flow Rate FiO2 03/22/17 19:06 36.7 85 18 146/69 (94) 98 Nasal Cannula 2.5 03/22/17 16:15 Nasal Cannula 3.0 03/22/17 15:02 89 97 03/22/17 15:01 37.0 83 20 157/71 (99) 98 Nasal Cannula 3.0 Physical Exam: General- lying in bed, no acute distress Eyes- anicteric Neck- no JVD Lungs- diffuse mild wheezing, no respiratory distress Heart- RRR, no gallop Abdomen- + BS, soft, nontender Extremities- no pretibial edema or calf tenderness Skin- warm and dry Neuro- alert . Laboratory Results: Last 24 Hours Test 03/22/17 05:14 White Blood Count 3.97 K/uL Red Blood Count 2.70 M/uL Hemoglobin 8.4 g/dL Hematocrit 26.6 % Mean Corpuscular Volume 98.5 fL Mean Corpuscular Hemoglobin 31.1 pg Mean Corpuscular Hemoglobin Concent 31.6 g/dl Platelet Count 75 K/uL Mean Platelet Volume 12.1 fL Neutrophils (%) (Auto) 66.1 % Lymphocytes (%) (Auto) 20.4 % Monocytes (%) (Auto) 12.1 % Eosinophils (%) (Auto) 0.8 % Basophils (%) (Auto) 0.3 % Neutrophils # (Auto) 2.63 K/uL Lymphocytes # (Auto) 0.81 K/uL Monocytes # (Auto) 0.48 K/uL Eosinophils # (Auto) 0.03 K/uL Basophils # (Auto) 0.01 K/uL RDW Standard Deviation 53.5 fL RDW Coefficient of Variation 14.9 % Immature Granulocyte % (Auto) 0.3 % Immature Granulocyte # (Auto) 0.01 K/uL Platelet Estimate DECREASED Hypochromasia PRESENT Sodium Level 143 mmol/L Potassium Level 3.4 mmol/L Chloride Level 107 mmol/L Carbon Dioxide Level 33 mmol/L Anion Gap 3.0 mmol/L Blood Urea Nitrogen 19 mg/dl Creatinine 1.45 mg/dl Est Creatinine Clear Calc Drug Dose 38.8 ml/min Estimated GFR () 55.0 Estimated GFR (Non- 47.4 BUN/Creatinine Ratio 12.8 Random Glucose 88 mg/dl Calcium Level 7.9 mg/dl Assessment & Plan EXACERBATION COPD Secondary to bronchiectasis. Continue ampicillin / sulbactam. Continue Combivent and Symbicort. Continue prednisone. CHRONIC HYPOXIC + HYPERCAPNIC RESPIRATORY FAILURE Due to COPD. Continue supplemental O2. Consider BiPAP. ACUTE KIDNEY INJURY Baseline creatinine ~ 1.0 in 2016. Serum creatine at time of admission 1.72. Creatinine today = 1.45. Follow. DYSPHAGIA Esophageal dysmotility noted on video swallow. Slippery diet. Patient prefers not to pursue further evaluation at this time. Consider barium swallow or EGD when pulmonary status improved. GERD Continue PPI. PANCYTOPENIA Hematology consult requested. URINARY FREQUENCY Apparent history of BPH, prescribed doxazosin. Not followed by Urology. Now with worsening urinary frequency. Continue doxazosin. Consult Urology. VTE PROPHYLAXIS SCD's. DISPOSITION Unable to be discharged to home at this time. Anticipate need for skilled care or rehab. Case Management consulted. Family Medicine follow-up with Dr. Ashley. . Current Inpatient Medications: Current Inpatient Medications Medications (Trade) Dose Ordered Sig/Rosemary Route Start Time Stop Time Status Last Admin Dose Admin Ampicillin Sodium/ Sulbactam Sodium 3000 mg/Sodium Chloride 108 ml @ 200 mls/hr Q6H IV 03/18/17 22:00 03/25/17 21:59 03/22/17 15:43 200 MLS/HR Acetaminophen (Tylenol Tab) 650 mg Q4H PRN PO 03/18/17 20:30 04/17/17 20:29 03/20/17 23:14 650 MG Hydromorphone HCl (Dilaudid Inj) 0.5 mg Q3H PRN IV 03/18/17 20:30 04/01/17 20:29 Tramadol HCl (Ultram Tab) 25 mg Q6H PRN PO 03/18/17 20:30 04/17/17 20:29 Ampicillin Sodium/ Sulbactam Sodium (Consult) 1 ea UD PRN N/A 03/18/17 20:45 04/17/17 20:44 Prednisone (PredniSONE TAB) 40 mg DAILY PO 03/19/17 09:00 03/24/17 08:59 03/22/17 08:19 40 MG Pantoprazole Sodium (Protonix Tab) 40 mg QAM PO 03/19/17 09:00 04/18/17 08:59 03/22/17 08:19 40 MG Triamcinolone Acetonide (Kenalog 0.1% Cream) 1 appln BID EXT 03/18/17 21:00 04/17/17 20:59 03/22/17 08:19 1 APPLN Doxazosin Mesylate (Cardura Tab) 8 mg DAILY PO 03/19/17 09:00 04/18/17 08:59 03/22/17 08:20 8 MG Miscellaneous Information (Order Awaiting Action) 1 ea QS N/A 03/19/17 00:00 04/18/17 00:00 Fluticasone Propionate (Flonase Nasal [place]) 1 sprays DAILY NA 03/20/17 09:00 04/19/17 08:59 03/22/17 08:19 1 SPRAYS Budesonide/ Formoterol Fumarate (Symbicort 160/ 4.5 Inh) 2 puffs BID INH 03/20/17 09:00 04/19/17 08:59 03/22/17 08:18 2 PUFFS Levalbuterol (Xopenex 1.25MG/ 0.5ML Neb) 1.25 mg Q6H PRN INH 03/21/17 15:00 04/17/17 20:59 Albuterol/ Ipratropium (Combivent Respimat Inh) 1 puffs QID INH 03/21/17 10:15 04/19/17 08:44 03/22/17 16:34 1 PUFFS Sodium Chloride ([place] Nasal [place]) 1 sprays PRN PRN NA 03/22/17 02:15 04/21/17 02:14 Enteral Nutritional Formula (Boost) 1 can BIDM PO 03/22/17 17:00 04/21/17 16:59 03/22/17 16:36 1 CAN
[2017-03-23 00:03] VITALS: BP 144/80; PULSE 80; TEMP 37; O2SAT 100
[2017-03-23] MEDS: AMPICILLIN/SULBACTAM SOD INJ 3,000 MG in SODIUM CHLORIDE 0.9% 100ML 100 ML IV SCH ×4 (03:56→22:13)
[2017-03-23 04:00] VITALS: BP 148/72; PULSE 69; TEMP 36.8; O2SAT 99
[2017-03-23] MEDS: ACETAMINOPHEN 325 MG TAB PO PRN (04:20)
[2017-03-23 07:47] VITALS: BP 147/71; PULSE 86; TEMP 36.9; O2SAT 93
[2017-03-23] MEDS: BUDESONIDE/FORMOTEROL FUMARATE 160/4.5 60 PUFFS/INHALER INH SCH ×2 (08:01→21:04)
[2017-03-23] MEDS: IPRATROPIUM BROMIDE/ALBUTEROL respimat INH INH SCH ×4 (08:01→21:03)
[2017-03-23] MEDS: PANTOprazole SOD 40 MG TAB PO SCH (08:02)
[2017-03-23] MEDS: BOOST VANILLA PO SCH ×2 (08:02→16:39)
[2017-03-23] MEDS: FLUTICASONE PROPIONATE NA SPR 16 GM BTL SCH (08:02)
[2017-03-23] MEDS: TRIAMCINOLONE ACET 0.1% CR 15 GM TUBE EXT SCH ×2 (08:02→21:04)
[2017-03-23] MEDS: DOXAZosin MESYLATE TAB 4 MG TAB PO SCH (08:03)
[2017-03-23 08:23] LABS: HEMATOCRIT 27.5 % (42-52); HEMOGLOBIN 8.7 g/dL (14.0-18.0); MEAN CELL VOLUME 98.2 fL (80-100); MEAN CORPUSCULAR HEMOGLOBIN 31.1 pg (25-34); MEAN CORPUSCULAR HGB CONC 31.6 g/dl (32-36); MEAN PLATELET VOLUME 12.4 fL (7.4-10.4); PLATELET COUNT 78 K/uL (130-400); RED CELL DISTRIBUTION WIDTH CV 14.8 % (11.5-14.5); RED CELL DISTRIBUTION WIDTH SD 52.9 fL (36.4-46.3); WHITE BLOOD COUNT 5.22 K/uL (4.8-10.8)
[2017-03-23 08:25] LABS: BASO % 0.2 %; BASO ABS # 0.01 K/uL (0-0.2); EOS ABS # 0.05 K/uL (0-0.5); LYMPH % 14.6 %; LYMPH ABS # 0.76 K/uL (1.2-3.4); MONO % 10.9 %; MONO ABS # 0.57 K/uL (0.11-0.59); NEUT % 73.3 %; NEUT ABS # 3.83 K/uL (1.4-6.5)
[2017-03-23 08:26] LABS: CREATININE 1.7 mg/dl (0.60-1.40); POTASSIUM 3.5 mmol/L (3.5-5.1)
--- NOTE | 2017-03-23 10:08 | Urology Consultation ---
History General Date of Service: Mar 23, 2017. Chief Complaint: frequency Primary Care Physician: Hamzah Ashley M.D. Pt seen a urologist before?: Yes (Dr. Ley) If yes, why?: BPH History of Present Illness 71 yo male admitted for respiratory distress. consulted for increased urinary frequency. Pt reports he has had this issue for 1 year. He has previously seen Dr. Ley for BPH and is currently on doxazosin. He denies any weak stream or hesitancy. Denies dysuria. He states that he was voiding "black" urine that looked like "coffee grounds" over the summer. Urine in bedside urinal is clear, yellow this morning. He does have a hx of smoking. Pt also c/o not being able to retract his foreskin. Laboratory Last 24 Hours Test 03/23/17 07:22 03/23/17 09:42 White Blood Count 5.22 K/uL Red Blood Count 2.80 M/uL Hemoglobin 8.7 g/dL Hematocrit 27.5 % Mean Corpuscular Volume 98.2 fL Mean Corpuscular Hemoglobin 31.1 pg Mean Corpuscular Hemoglobin Concent 31.6 g/dl Platelet Count 78 K/uL Mean Platelet Volume 12.4 fL Neutrophils (%) (Auto) 73.3 % Lymphocytes (%) (Auto) 14.6 % Monocytes (%) (Auto) 10.9 % Eosinophils (%) (Auto) 1.0 % Basophils (%) (Auto) 0.2 % Neutrophils # (Auto) 3.83 K/uL Lymphocytes # (Auto) 0.76 K/uL Monocytes # (Auto) 0.57 K/uL Eosinophils # (Auto) 0.05 K/uL Basophils # (Auto) 0.01 K/uL RDW Standard Deviation 52.9 fL RDW Coefficient of Variation 14.8 % Immature Granulocyte % (Auto) 0.0 % Immature Granulocyte # (Auto) 0.00 K/uL Red Blood Cell Morphology Unremarkable Sodium Level 142 mmol/L Potassium Level 3.5 mmol/L Chloride Level 105 mmol/L Carbon Dioxide Level 33 mmol/L Anion Gap 4.0 mmol/L Blood Urea Nitrogen 20 mg/dl Creatinine 1.70 mg/dl Est Creatinine Clear Calc Drug Dose 32.8 ml/min Estimated GFR () 45.4 Estimated GFR (Non- 39.1 BUN/Creatinine Ratio 11.5 Random Glucose 94 mg/dl Calcium Level 8.0 mg/dl Problem List Medical Problems: (1) COPD exacerbation Status: Acute (2) Hypoxia Status: Acute (3) Pancytopenia Status: Acute (4) Pneumonia Status: Acute Past History BPH, COPD, diverticulosis, GERD, high cholesterol, kidney stones, lung disease, other (colon polyps, respiratory failure, emphysema) Past Surgical History: colonoscopy, EGD, other (bronchoscopy) Family History Diabetes mellitus FH: heart disease Social History Hx Tobacco Use In Past Year?: Yes (cigarettes 1 PPD ) Smokin pack/day, other Alcohol: never Marital status: single Housing status: lives alone Occupation status: retired Immunizations History of Influenza Vaccine: Yes Influenza Vaccine Date: Feb 19, 2013 History of Tetanus Vaccine?: Unknown History of Pneumococcal: Yes Pneumococcal Date: Nov 04, 2008 History of Hepatitis B Vaccine: Unknown Allergies Coded Allergies: POLLEN (Verified Allergy, Unknown, SEASONAL ALLERGIES, 03/18/17) Lactose Intolerance (Verified Adverse Reaction, Intermediate, GI SYMPTOMS , 03/18/17) Medications Home Medications: Home Meds and Scripts Medications Dose Route/Sig Max Daily Dose Days Date Category Dose Instructions Tylenol (Acetaminophen) 325 Mg Tab 650 Mg PO Q4H PRN 03/18/17 Reported Levaquin (Levofloxacin) 500 Mg Tab 750 Mg PO DAILY PRN 7 03/18/17 Reported Aristocort 0.1% (Triamcinolone Acet) 90 Appln/30 Gm Cr 1 Appln TD BID 03/18/17 Reported Lasix (Furosemide) 20 Mg Tab 20 Mg PO DAILY 03/18/17 Reported Protonix (Pantoprazole Sodium) 40 Mg Tab 40 Mg PO QAM 03/18/17 Reported Naprosyn (Naproxen) 500 Mg Tab 500 Mg PO BID W/FOOD PRN 03/18/17 Reported Levocetirizine Dihydrochl (Levocetirizine Dihydrochloride) 5 Mg Tab 5 Mg PO DAILY 90 03/18/17 Reported Combivent Respimat (Ipratropium-Albuterol) 1 Aer Aer 1 Puffs INH Q4H PRN 03/18/17 Reported Zithromax (Azithromycin) 500 Mg Tab 500 Mg PO 3XWK 03/18/17 Reported TAKES MON, WED, FRI. Aspirin Ec (Aspirin) 81 Mg Tab 81 Mg PO QAM 03/18/17 Reported Acetazolamide 250 Mg Tab 250 Mg PO BID 03/18/17 Reported Duoneb (Ipratropium-Albuterol) 3 Ml Nebu 1 Treatment INH Q4H 03/18/17 Reported Micro-K Ext Rel (Potassium Chloride) 10 Meq Capcr 10 Meq PO BID 06/07/15 Reported Symbicort 160/4.5 Inhaler (Budesonide/Formoterol Fumarate) Aero 2 Puffs INH BID 08/04/13 Reported Oxygen Gas 2-2.5 Liters NA CONTINOUS 05/21/13 Reported . Astelin Nasal [place] (Azelastine Hcl) 200 Sprays/30 Ml [place] 1-2 Sprays NA BID PRN 05/21/13 Reported Doxazosin Mesylate 8 Mg Tab 8 Mg PO DAILY 05/21/13 Reported Inpatient Medications: Current Inpatient Medications Medications (Trade) Dose Ordered Sig/Rosemary Route Start Time Stop Time Status Last Admin Dose Admin Ampicillin Sodium/ Sulbactam Sodium 3000 mg/Sodium Chloride 108 ml @ 200 mls/hr Q6H IV 03/18/17 22:00 03/25/17 21:59 03/23/17 03:56 200 MLS/HR Acetaminophen (Tylenol Tab) 650 mg Q4H PRN PO 03/18/17 20:30 04/17/17 20:29 03/23/17 04:20 650 MG Hydromorphone HCl (Dilaudid Inj) 0.5 mg Q3H PRN IV 03/18/17 20:30 04/01/17 20:29 Tramadol HCl (Ultram Tab) 25 mg Q6H PRN PO 03/18/17 20:30 04/17/17 20:29 Ampicillin Sodium/ Sulbactam Sodium (Consult) 1 ea UD PRN N/A 03/18/17 20:45 04/17/17 20:44 Prednisone (PredniSONE TAB) 40 mg DAILY PO 03/19/17 09:00 03/24/17 08:59 03/23/17 08:02 40 MG Pantoprazole Sodium (Protonix Tab) 40 mg QAM PO 03/19/17 09:00 04/18/17 08:59 03/23/17 08:02 40 MG Triamcinolone Acetonide (Kenalog 0.1% Cream) 1 appln BID EXT 03/18/17 21:00 04/17/17 20:59 03/23/17 08:02 1 APPLN Doxazosin Mesylate (Cardura Tab) 8 mg DAILY PO 03/19/17 09:00 04/18/17 08:59 03/23/17 08:03 8 MG Miscellaneous Information (Order Awaiting Action) 1 ea QS N/A 03/19/17 00:00 04/18/17 00:00 Fluticasone Propionate (Flonase Nasal [place]) 1 sprays DAILY NA 03/20/17 09:00 04/19/17 08:59 03/23/17 08:02 1 SPRAYS Budesonide/ Formoterol Fumarate (Symbicort 160/ 4.5 Inh) 2 puffs BID INH 03/20/17 09:00 04/19/17 08:59 03/23/17 08:01 2 PUFFS Levalbuterol (Xopenex 1.25MG/ 0.5ML Neb) 1.25 mg Q6H PRN INH 03/21/17 15:00 04/17/17 20:59 Albuterol/ Ipratropium (Combivent Respimat Inh) 1 puffs QID INH 03/21/17 10:15 04/19/17 08:44 03/23/17 08:01 1 PUFFS Sodium Chloride ([place] Nasal [place]) 1 sprays PRN PRN NA 03/22/17 02:15 04/21/17 02:14 Enteral Nutritional Formula (Boost) 1 can BIDM PO 03/22/17 17:00 04/21/17 16:59 03/23/17 08:02 1 CAN Review of Systems Review of Systems Constitutional: No fever, No chills Eyes: No double vision Neurological: No dizzy Endocrine: No excessive thirst Gastrointestinal: No abdominal pain, No nausea, No vomiting Cardiovascular: No chest pain Respiratory: No shortness of breath Skin: No rash Musculoskeletal: No back pain Male : + frequent urination, No urinary retention, No weak stream, No blood in urine Physical Exam Vital Signs: Vital Signs Past 12 Hours Date Time Temp Pulse Resp B/P (MAP) Pulse Ox O2 Delivery O2 Flow Rate FiO2 03/23/17 08:30 Nasal Cannula 3.0 03/23/17 07:47 36.9 86 18 147/71 (96) 93 3.0 03/23/17 04:00 36.8 69 18 148/72 (97) 99 Nasal Cannula 03/23/17 04:00 Nasal Cannula 3.0 03/23/17 00:03 37.0 80 20 144/80 (101) 100 Room Air 03/23/17 00:00 Nasal Cannula 3.0 Physical Exam: General Appearance: no apparent distress Eyes: bilateral eyes normal inspection ENT: hearing grossly normal Neck: no JVD Respiratory/Chest: no respiratory distress, no accessory muscle use, + pertinent finding (nasal cannula O2 in place) Cardiovascular: no JVD Genitourinary - Male: Penis: phimosis Extremities: normal inspection Neurologic/Psychiatric: alert, normal mood/affect, oriented x 3 Skin: normal color Assessment & Plan Assessment & Plan A/P: Frequency, BPH, hx of gross hematuria, phimosis AFVSS. Will check bladder scans qshift to r/o UR as source for frequency. Place villa catheter if >300ml. Will switch the pt to tamsulosin from doxazosin. Will check a PSA. Will check a UC&S. Will evaluate for hx of gross hematuria further with a non-contrast CT (pt's Cr is elevated), urine cytology, and outpatient cysto. Pt may eventually need a circumcision or dorsal slit as an outpatient for management of phimosis. Thanks for the consult. Will continue to follow along with primary service.
--- NOTE | 2017-03-23 10:50 | DIAGNOSTIC IMAGING REPORT ---
ABD/PELVIS WITHOUT FOR STONE CT DOSE: 907.89 mGycm HISTORY: Pain. Hematuria. hx of gross hematuria, urinary frequency TECHNIQUE: Multiaxial CT images of the abdomen and pelvis were performed without the use of intravenous and oral contrast according to the standard department stone protocol. A dose lowering technique was utilized adhering to the principles of ALARA. COMPARISON STUDY: 06/16/2015 FINDINGS: Lung bases are remarkable for bilateral pleural effusions. Mild nonspecific bibasilar interstitial changes also present. Several retrocrural and upper abdominal para-aortic nodes are present. Is slightly increased compared to the prior study with the largest measuring 1 cm. Liver shows slight lobulation but is otherwise uniform. There is a large gallstone within a contracted perhaps slightly edematous gallbladder. Left kidney shows several nonobstructing upper pole calcifications. Right kidney demonstrates moderate hydronephrosis. Multiple nonobstructing right renal calcifications are present. There is a 5 mm obstructing calculus distal right ureter. There is trace amount of gravel and/or debris at the right ureterovesical junction. Left ureters is normal in course and caliber. There is no evidence for left-sided obstructing calculus. There are findings of a slight degree of lateral body wall edema and/or anasarca. This is seen to a lesser extent involving the upper thighs and lateral soft tissue pelvic regions. Bowel pattern overall is nonobstructive. Findings of chronic sigmoid diverticulosis. There are findings of a subtle infiltrative change of the root of the mesentery perhaps minimally increased in the prior exam. IMPRESSION: 1. 5 mm obstructing calculus distal right ureter. 2. Debris and/or gravel at the right ureterovesical junction. 3. Moderate right hydroureteronephrosis. 4. Several nonobstructing renal calcifications bilaterally. 5. Large gallstone within what appears to be a thickened gallbladder wall. Possibility of acute cholecystitis must be considered, although this may also represent a simple reactive changedue to progressive infiltrative change of the mesentery. 6. Normal appendix. 7. Slightly progressive upper abdominal and retroperitoneal adenopathy which should be closely monitored. Statistically this is most likely reactive. 8. Bilateral pleural effusions 9. Chronic sigmoid diverticulosis. 7. Chronic sigmoid diverticulosis. 8. Mild body wall anasarca with small bilateral pleural effusions. 6. Small fat-containing right inguinal hernia with a small medical of small bowel is most superior extent. This appears to be a nonobstructive finding. The above report was generated using voice recognition software. It may contain grammatical, syntax or spelling errors. Electronically signed by: Sukh England M.D. 03/23/2017 10:48 AM Dictated Date/Time: 03/23/2017 10:40 AM
[2017-03-23 11:30] VITALS: BP 137/65; PULSE 90; TEMP 36.9; O2SAT 99
[2017-03-23 15:51] VITALS: BP 151/77; PULSE 86; TEMP 37; O2SAT 96
[2017-03-23] MEDS ORDERED: FLUCONAZOLE 100 MG TAB PO ONE (16:22)
[2017-03-23 19:22] VITALS: BP 148/78; PULSE 76; TEMP 36.7; O2SAT 98
[2017-03-23] MEDS: TAMSULOSIN HCL 0.4 MG CAP PO SCH (21:04)
--- NOTE | 2017-03-23 21:53 | Progress Note ---
Medicine Progress Note Date & Time of Visit: Mar 23, 2017 at 16:10 . Subjective Cough more productive today. Less SOB. No fever. No chest pain. Swallowing without difficulty. No nausea or vomiting. No diarrhea. Ongoing urinary frequency. . Objective Last 8 Hrs Date Time Temp Pulse Resp B/P (MAP) Pulse Ox O2 Delivery O2 Flow Rate FiO2 03/23/17 19:22 36.7 76 18 148/78 (101) 98 Nasal Cannula 2.0 03/23/17 16:00 Nasal Cannula 3.0 03/23/17 15:51 37.0 86 18 151/77 (101) 96 Nasal Cannula 3.0 Physical Exam: General- lying in bed, no acute distress Eyes- anicteric Neck- no JVD Lungs- diffuse mild wheezing, few scattered rhonchi, no respiratory distress Heart- RRR, no gallop Abdomen- + BS, soft, nontender Extremities- no pretibial edema or calf tenderness Skin- warm and dry Neuro- alert . Laboratory Results: Last 24 Hours Test 03/23/17 07:22 03/23/17 10:47 White Blood Count 5.22 K/uL Red Blood Count 2.80 M/uL Hemoglobin 8.7 g/dL Hematocrit 27.5 % Mean Corpuscular Volume 98.2 fL Mean Corpuscular Hemoglobin 31.1 pg Mean Corpuscular Hemoglobin Concent 31.6 g/dl Platelet Count 78 K/uL Mean Platelet Volume 12.4 fL Neutrophils (%) (Auto) 73.3 % Lymphocytes (%) (Auto) 14.6 % Monocytes (%) (Auto) 10.9 % Eosinophils (%) (Auto) 1.0 % Basophils (%) (Auto) 0.2 % Neutrophils # (Auto) 3.83 K/uL Lymphocytes # (Auto) 0.76 K/uL Monocytes # (Auto) 0.57 K/uL Eosinophils # (Auto) 0.05 K/uL Basophils # (Auto) 0.01 K/uL RDW Standard Deviation 52.9 fL RDW Coefficient of Variation 14.8 % Immature Granulocyte % (Auto) 0.0 % Immature Granulocyte # (Auto) 0.00 K/uL Red Blood Cell Morphology Unremarkable Sodium Level 142 mmol/L Potassium Level 3.5 mmol/L Chloride Level 105 mmol/L Carbon Dioxide Level 33 mmol/L Anion Gap 4.0 mmol/L Blood Urea Nitrogen 20 mg/dl Creatinine 1.70 mg/dl Est Creatinine Clear Calc Drug Dose 32.8 ml/min Estimated GFR () 45.4 Estimated GFR (Non- 39.1 BUN/Creatinine Ratio 11.5 Random Glucose 94 mg/dl Calcium Level 8.0 mg/dl Prostate Specific Antigen 1.680 ng/ml Urine Color YELLOW Urine Appearance CLEAR Urine pH 7.5 Urine Specific [place] 1.018 Urine Protein NEG Urine Glucose (UA) NEG Urine Ketones NEG Urine Occult Blood NEG Urine Nitrite NEG Urine Bilirubin NEG Urine Urobilinogen NEG Urine Leukocyte Esterase TRACE Urine WBC (Auto) 1-5 /hpf Urine RBC (Auto) 0-4 /hpf Urine Hyaline Casts (Auto) 1-5 /lpf Urine Epithelial Cells (Auto) >30 /lpf Urine Bacteria (Auto) NEG Urine Mucus PRESENT Urine Yeast (Auto) BUDDING Date/Time Source Procedure Growth Status 03/23/17 10:47 Urine , Clean Catch Urine Culture Pending Received Assessment & Plan EXACERBATION COPD Secondary to bronchiectasis. Continue ampicillin / sulbactam. Continue Combivent and Symbicort. Continue prednisone. CHRONIC HYPOXIC + HYPERCAPNIC RESPIRATORY FAILURE Due to COPD. Continue supplemental O2. BiPAP trial discussed; pt prefers not to try. ACUTE KIDNEY INJURY Baseline creatinine ~ 1.0 in 2016. Serum creatine at time of admission 1.72. Creatinine today = 1.70. Encourage PO fluids. Follow. DYSPHAGIA Esophageal dysmotility noted on video swallow. Slippery diet. Patient prefers not to pursue further evaluation at this time. Consider barium swallow or EGD when pulmonary status improved. GERD Continue PPI. PANCYTOPENIA Hematology consult requested. Counts stable. May need further evaluation in the future. Follow. URINARY FREQUENCY Apparent history of BPH, prescribed doxazosin. Not recently followed by Urology. Now with worsening urinary frequency. Urology consulted. VTE PROPHYLAXIS SCD's. DISPOSITION Unable to be discharged to home at this time. Anticipate need for skilled care or rehab. Case Management consulted. Family Medicine follow-up with Dr. Ashley. . Current Inpatient Medications: Current Inpatient Medications Medications (Trade) Dose Ordered Sig/Rosemary Route Start Time Stop Time Status Last Admin Dose Admin Ampicillin Sodium/ Sulbactam Sodium 3000 mg/Sodium Chloride 108 ml @ 200 mls/hr Q6H IV 03/18/17 22:00 03/25/17 21:59 03/23/17 16:38 200 MLS/HR Acetaminophen (Tylenol Tab) 650 mg Q4H PRN PO 03/18/17 20:30 04/17/17 20:29 03/23/17 04:20 650 MG Hydromorphone HCl (Dilaudid Inj) 0.5 mg Q3H PRN IV 03/18/17 20:30 04/01/17 20:29 Tramadol HCl (Ultram Tab) 25 mg Q6H PRN PO 03/18/17 20:30 04/17/17 20:29 Ampicillin Sodium/ Sulbactam Sodium (Consult) 1 ea UD PRN N/A 03/18/17 20:45 04/17/17 20:44 Prednisone (PredniSONE TAB) 40 mg DAILY PO 03/19/17 09:00 03/24/17 08:59 03/23/17 08:02 40 MG Pantoprazole Sodium (Protonix Tab) 40 mg QAM PO 03/19/17 09:00 04/18/17 08:59 03/23/17 08:02 40 MG Triamcinolone Acetonide (Kenalog 0.1% Cream) 1 appln BID EXT 03/18/17 21:00 04/17/17 20:59 03/23/17 21:04 1 APPLN Miscellaneous Information (Order Awaiting Action) 1 ea QS N/A 03/19/17 00:00 04/18/17 00:00 Fluticasone Propionate (Flonase Nasal [place]) 1 sprays DAILY NA 03/20/17 09:00 04/19/17 08:59 03/23/17 08:02 1 SPRAYS Budesonide/ Formoterol Fumarate (Symbicort 160/ 4.5 Inh) 2 puffs BID INH 03/20/17 09:00 04/19/17 08:59 03/23/17 21:04 2 PUFFS Levalbuterol (Xopenex 1.25MG/ 0.5ML Neb) 1.25 mg Q6H PRN INH 03/21/17 15:00 04/17/17 20:59 Albuterol/ Ipratropium (Combivent Respimat Inh) 1 puffs QID INH 03/21/17 10:15 04/19/17 08:44 03/23/17 21:03 1 PUFFS Sodium Chloride ([place] Nasal [place]) 1 sprays PRN PRN NA 03/22/17 02:15 04/21/17 02:14 Enteral Nutritional Formula (Boost) 1 can BIDM PO 03/22/17 17:00 04/21/17 16:59 03/23/17 08:02 1 CAN Tamsulosin HCl (Flomax Cap) 0.4 mg HS PO 03/23/17 21:00 04/22/17 20:59 03/23/17 21:04 0.4 MG Fluconazole (Diflucan Tab) 100 mg QAM PO 03/24/17 09:00 04/01/17 09:01
[2017-03-24] VITALS: BP 131/67; PULSE 78; TEMP 36.9; O2SAT 100
[2017-03-24] MEDS: AMPICILLIN/SULBACTAM SOD INJ 3,000 MG in SODIUM CHLORIDE 0.9% 100ML 100 ML IV SCH ×4 (04:09→22:07)
[2017-03-24] MEDS: ACETAMINOPHEN 325 MG TAB PO PRN ×2 (04:56→22:14)
[2017-03-24 06:21] LABS: HEMATOCRIT 28.9 % (42-52); MEAN CORPUSCULAR HEMOGLOBIN 30.8 pg (25-34); MEAN CORPUSCULAR HGB CONC 31.1 g/dl (32-36); MEAN PLATELET VOLUME 12.4 fL (7.4-10.4); PLATELET COUNT 81 K/uL (130-400); RED CELL DISTRIBUTION WIDTH CV 14.7 % (11.5-14.5); RED CELL DISTRIBUTION WIDTH SD 52.6 fL (36.4-46.3); WHITE BLOOD COUNT 6.77 K/uL (4.8-10.8)
[2017-03-24 06:55] LABS: CALCIUM 7.9 mg/dl (8.5-10.1); CREATININE 1.8 mg/dl (0.60-1.40); POTASSIUM 3.6 mmol/L (3.5-5.1)
[2017-03-24 07:07] LABS: EOS % 0.4 %; EOS ABS # 0.03 K/uL (0-0.5); IG# 0.02 K/uL (0.00-0.02); LYMPH % 9.7 %; LYMPH ABS # 0.66 K/uL (1.2-3.4); MONO % 9.5 %; MONO ABS # 0.64 K/uL (0.11-0.59); NEUT % 80.1 %; NEUT ABS # 5.42 K/uL (1.4-6.5)
[2017-03-24] MEDS: FLUTICASONE PROPIONATE NA SPR 16 GM BTL SCH (07:44)
[2017-03-24] MEDS: IPRATROPIUM BROMIDE/ALBUTEROL respimat INH INH SCH ×4 (07:44→20:52)
[2017-03-24] MEDS: FLUCONAZOLE 100 MG TAB PO SCH (07:45)
[2017-03-24] MEDS: TRIAMCINOLONE ACET 0.1% CR 15 GM TUBE EXT SCH ×3 (07:46→20:56)
[2017-03-24] MEDS: BUDESONIDE/FORMOTEROL FUMARATE 160/4.5 60 PUFFS/INHALER INH SCH ×2 (07:46→20:52)
[2017-03-24] MEDS: BOOST VANILLA PO SCH ×2 (07:47→16:15)
[2017-03-24 08:28] VITALS: BP 138/72; PULSE 69; TEMP 36.7; O2SAT 100
[2017-03-24] MEDS: PANTOprazole SOD 40 MG TAB PO SCH (08:39)
--- NOTE | 2017-03-24 14:57 | Progress Note ---
Subjective Date of Service: Mar 24, 2017. Subjective Pt evaluation today including: conversation w/ patient, physical exam, chart review, lab review, review of studies Pain: Tolerated .. Right lower quadrant / groin PO Intake: Good Patient devolped hematuria. Had long history of stones. [address] scan at [facility] on right. 1 episode of sweat/chills last pm. In for PNa and COPD issues. Doing well pulmonary. Has passed multiple stones in life. No severe pain. Problem List Medical Problems: (1) COPD exacerbation Status: Acute (2) Hypoxia Status: Acute (3) Pancytopenia Status: Acute (4) Pneumonia Status: Acute Review of Systems All Other Systems: Reviewed and Negative (All reviewed Pertinent values in HPI) Objective Vital Signs Date Time Temp Pulse Resp B/P (MAP) Pulse Ox O2 Delivery O2 Flow Rate FiO2 03/24/17 08:30 Nasal Cannula 3.0 03/24/17 08:28 36.7 69 18 138/72 (94) 100 Nasal Cannula 3.0 03/24/17 00:00 Nasal Cannula 3.0 03/24/17 00:00 36.9 78 18 131/67 (88) 100 03/23/17 19:22 36.7 76 18 148/78 (101) 98 Nasal Cannula 2.0 03/23/17 16:00 Nasal Cannula 3.0 03/23/17 15:51 37.0 86 18 151/77 (101) 96 Nasal Cannula 3.0 Physical Exam General Appearance: WD/WN, no apparent distress Eyes: normal inspection ENT: normal ENT inspection Neck: supple, no JVD Respiratory/Chest: no accessory muscle use Cardiovascular: regular rate, rhythm Abdomen: soft, + distended, + tenderness Extremities: normal range of motion, non-tender 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/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 tested, no motor/sensory deficits, alert, normal mood/affect, oriented x 3 Skin: normal color, warm/dry, no rash Lymphatic: no adenopathy Laboratory Results Last 24 Hours Test 03/24/17 05:20 03/24/17 10:25 03/24/17 12:14 White Blood Count 6.77 K/uL Red Blood Count 2.92 M/uL Hemoglobin 9.0 g/dL Hematocrit 28.9 % Mean Corpuscular Volume 99.0 fL Mean Corpuscular Hemoglobin 30.8 pg Mean Corpuscular Hemoglobin Concent 31.1 g/dl Platelet Count 81 K/uL Mean Platelet Volume 12.4 fL Neutrophils (%) (Auto) 80.1 % Lymphocytes (%) (Auto) 9.7 % Monocytes (%) (Auto) 9.5 % Eosinophils (%) (Auto) 0.4 % Basophils (%) (Auto) 0.0 % Neutrophils # (Auto) 5.42 K/uL Lymphocytes # (Auto) 0.66 K/uL Monocytes # (Auto) 0.64 K/uL Eosinophils # (Auto) 0.03 K/uL Basophils # (Auto) 0.00 K/uL RDW Standard Deviation 52.6 fL RDW Coefficient of Variation 14.7 % Immature Granulocyte % (Auto) 0.3 % Immature Granulocyte # (Auto) 0.02 K/uL Red Blood Cell Morphology Unremarkable Sodium Level 141 mmol/L Potassium Level 3.6 mmol/L Chloride Level 105 mmol/L Carbon Dioxide Level 33 mmol/L Anion Gap 3.0 mmol/L Blood Urea Nitrogen 21 mg/dl Creatinine 1.80 mg/dl Est Creatinine Clear Calc Drug Dose 31.0 ml/min Estimated GFR () 42.3 Estimated GFR (Non- 36.5 BUN/Creatinine Ratio 11.6 Random Glucose 95 mg/dl Calcium Level 7.9 mg/dl Stool Occult Blood NEGATIVE Bedside Glucose 121 mg/dl Assessment and Plan 1. Obs R [facility] stone 2. Hematuria 3. History of stones 4. COPD and PNa Recommend conservative and supportive management for passage. Patient has been able to pass many stones in past and no signs of fever or severe pain in flank. Hydration and time for stone passage. Plan to follow and if unable to pass in next 2-3 weeks may need intervention. Otherwise will monitor for development of fevers, severe pain, nausea, or other signs of distress related to stone. Plan for outpatient followup.
[2017-03-24 15:53] VITALS: BP 161/71; PULSE 82; TEMP 37.1; O2SAT 99
--- NOTE | 2017-03-24 16:39 | Progress Note ---
Medicine Progress Note Date & Time of Visit: Mar 24, 2017 at 10:30 . Subjective Episode of diaphoresis during the night without apparent fever or chills. Feels fairly well this morning. Cough and dyspnea improved. No chest pain. Swallowing without difficulty. No abdominal pain, nausea, vomiting. No diarrhea. Urinary frequency improved. No dysuria or gross hematuria. . Objective Last 8 Hrs Date Time Temp Pulse Resp B/P (MAP) Pulse Ox O2 Delivery O2 Flow Rate FiO2 03/24/17 16:00 Nasal Cannula 3.0 03/24/17 15:53 37.1 82 18 161/71 (101) 99 Nasal Cannula 3.0 Physical Exam: General- lying in bed, no acute distress Eyes- anicteric Neck- no JVD Lungs- diffuse mild wheezing, few scattered rhonchi, no respiratory distress Heart- RRR, no gallop Abdomen- + BS, soft, nontender Extremities- no pretibial edema or calf tenderness Skin- warm and dry Neuro- alert . Laboratory Results: Last 24 Hours Test 03/24/17 05:20 03/24/17 10:25 03/24/17 12:14 White Blood Count 6.77 K/uL Red Blood Count 2.92 M/uL Hemoglobin 9.0 g/dL Hematocrit 28.9 % Mean Corpuscular Volume 99.0 fL Mean Corpuscular Hemoglobin 30.8 pg Mean Corpuscular Hemoglobin Concent 31.1 g/dl Platelet Count 81 K/uL Mean Platelet Volume 12.4 fL Neutrophils (%) (Auto) 80.1 % Lymphocytes (%) (Auto) 9.7 % Monocytes (%) (Auto) 9.5 % Eosinophils (%) (Auto) 0.4 % Basophils (%) (Auto) 0.0 % Neutrophils # (Auto) 5.42 K/uL Lymphocytes # (Auto) 0.66 K/uL Monocytes # (Auto) 0.64 K/uL Eosinophils # (Auto) 0.03 K/uL Basophils # (Auto) 0.00 K/uL RDW Standard Deviation 52.6 fL RDW Coefficient of Variation 14.7 % Immature Granulocyte % (Auto) 0.3 % Immature Granulocyte # (Auto) 0.02 K/uL Red Blood Cell Morphology Unremarkable Sodium Level 141 mmol/L Potassium Level 3.6 mmol/L Chloride Level 105 mmol/L Carbon Dioxide Level 33 mmol/L Anion Gap 3.0 mmol/L Blood Urea Nitrogen 21 mg/dl Creatinine 1.80 mg/dl Est Creatinine Clear Calc Drug Dose 31.0 ml/min Estimated GFR () 42.3 Estimated GFR (Non- 36.5 BUN/Creatinine Ratio 11.6 Random Glucose 95 mg/dl Calcium Level 7.9 mg/dl Stool Occult Blood NEGATIVE Bedside Glucose 121 mg/dl Assessment & Plan EXACERBATION COPD Secondary to bronchiectasis. Continue ampicillin / sulbactam. Continue Combivent and Symbicort. Continue prednisone; taper as tolerated. CHRONIC HYPOXIC + HYPERCAPNIC RESPIRATORY FAILURE Due to COPD. Continue supplemental O2. BiPAP trial discussed; pt prefers not to try. ACUTE KIDNEY INJURY Baseline creatinine ~ 1.0 in 2016. Serum creatine at time of admission 1.72. Creatinine today = 1.80. Encourage PO fluids. Follow. DYSPHAGIA Esophageal dysmotility noted on video swallow. Slippery diet. Patient prefers not to pursue further evaluation at this time. Consider barium swallow or EGD when pulmonary status improved. GERD Continue PPI. PANCYTOPENIA Hematology consult requested. Counts stable. May need further evaluation in the future. Follow. URINARY FREQUENCY Apparent history of BPH, prescribed doxazosin. Not recently followed by Urology. Now with worsening urinary frequency. Urology consulted. Transitioned from doxazosin to tamsulosin URETERAL CALCULUS 5 mm obstructing calculus distal right ureter noted on CT 03/23. Conservative management at this time recommended by Urology. Continue tamsulosin. CHOLELITHIASIS Incidental finding on CT 03/23. Some thickening of gallbladder wall noted. Clinically, patient does not appear to have cholecystitis. Receiving IV ampicillin / sulbactam for bronchiectasis. Check LFT's with tomorrow's labs. May need further evaluation if warranted by clinical status. VTE PROPHYLAXIS SCD's. DISPOSITION Unable to be discharged to home at this time. Anticipate need for skilled care or rehab. Case Management consulted. Family Medicine follow-up with Dr. Ashley. . Consultants: Pulmonary Medicine- Dr. Cabral Hematology- Dr. Lorenzo Kumar Urology- CAMERON Crain and Dr. Stark. . Current Inpatient Medications: Current Inpatient Medications Medications (Trade) Dose Ordered Sig/Rosemary Route Start Time Stop Time Status Last Admin Dose Admin Ampicillin Sodium/ Sulbactam Sodium 3000 mg/Sodium Chloride 108 ml @ 200 mls/hr Q6H IV 03/18/17 22:00 03/25/17 21:59 03/24/17 16:14 200 MLS/HR Acetaminophen (Tylenol Tab) 650 mg Q4H PRN PO 03/18/17 20:30 04/17/17 20:29 03/24/17 04:56 650 MG Hydromorphone HCl (Dilaudid Inj) 0.5 mg Q3H PRN IV 03/18/17 20:30 04/01/17 20:29 Tramadol HCl (Ultram Tab) 25 mg Q6H PRN PO 03/18/17 20:30 04/17/17 20:29 Ampicillin Sodium/ Sulbactam Sodium (Consult) 1 ea UD PRN N/A 03/18/17 20:45 04/17/17 20:44 Pantoprazole Sodium (Protonix Tab) 40 mg QAM PO 03/19/17 09:00 04/18/17 08:59 03/24/17 08:39 40 MG Triamcinolone Acetonide (Kenalog 0.1% Cream) 1 appln BID EXT 03/18/17 21:00 04/17/17 20:59 03/23/17 21:04 1 APPLN Miscellaneous Information (Order Awaiting Action) 1 ea QS N/A 03/19/17 00:00 04/18/17 00:00 Fluticasone Propionate (Flonase Nasal [place]) 1 sprays DAILY NA 03/20/17 09:00 04/19/17 08:59 03/24/17 07:44 1 SPRAYS Budesonide/ Formoterol Fumarate (Symbicort 160/ 4.5 Inh) 2 puffs BID INH 03/20/17 09:00 04/19/17 08:59 03/24/17 07:46 2 PUFFS Levalbuterol (Xopenex 1.25MG/ 0.5ML Neb) 1.25 mg Q6H PRN INH 03/21/17 15:00 04/17/17 20:59 Albuterol/ Ipratropium (Combivent Respimat Inh) 1 puffs QID INH 03/21/17 10:15 04/19/17 08:44 03/24/17 16:14 1 PUFFS Sodium Chloride ([place] Nasal [place]) 1 sprays PRN PRN NA 03/22/17 02:15 04/21/17 02:14 Enteral Nutritional Formula (Boost) 1 can BIDM PO 03/22/17 17:00 04/21/17 16:59 03/24/17 16:15 1 CAN Tamsulosin HCl (Flomax Cap) 0.4 mg HS PO 03/23/17 21:00 04/22/17 20:59 03/23/17 21:04 0.4 MG Fluconazole (Diflucan Tab) 100 mg QAM PO 03/24/17 09:00 04/01/17 09:01 03/24/17 07:45 100 MG
[2017-03-24 20:00] VITALS: BP 148/75; PULSE 92; TEMP 37; O2SAT 98
[2017-03-24] MEDS: TAMSULOSIN HCL 0.4 MG CAP PO SCH (20:53)
[2017-03-25] VITALS (11 sets, daily range): BP systolic 143–165; BP diastolic 71–102; PULSE 80–140; TEMP 36.6–37.3; O2SAT 80–100
[2017-03-25] MEDS ORDERED: GUAIFENESIN 200 MG TAB PO PRN
[2017-03-25] MEDS: AMPICILLIN/SULBACTAM SOD INJ 3,000 MG in SODIUM CHLORIDE 0.9% 100ML 100 ML IV SCH ×3 (04:10→21:39)
[2017-03-25] MEDS ORDERED: LORAZEPAM 2 MG/ML 1 ML VIAL **EMERGENCY USE ONE (04:44)
[2017-03-25] MEDS ORDERED: RAPID SEQUENCE INDUCTION BAG ONE (04:59)
[2017-03-25 05:17] LABS: ALBUMIN 2.9 gm/dl (3.4-5.0); CALCIUM 7.8 mg/dl (8.5-10.1); CREATININE 2.02 mg/dl (0.60-1.40)
[2017-03-25 05:26] LABS: BASO % 0.2 %; BASO ABS # 0.04 K/uL (0-0.2); EOS % 2.9 %; EOS ABS # 0.49 K/uL (0-0.5); HEMATOCRIT 33.1 % (42-52); HEMOGLOBIN 10.1 g/dL (14.0-18.0); LYMPH % 10.1 %; LYMPH ABS # 1.72 K/uL (1.2-3.4); MEAN CELL VOLUME 101.8 fL (80-100); MEAN CORPUSCULAR HEMOGLOBIN 31.1 pg (25-34); MEAN CORPUSCULAR HGB CONC 30.5 g/dl (32-36); MEAN PLATELET VOLUME 10.9 fL (7.4-10.4); MONO % 5.8 %; MONO ABS # 0.99 K/uL (0.11-0.59); NEUT % 79.8 %; NEUT ABS # 13.53 K/uL (1.4-6.5); PLATELET COUNT 109 K/uL (130-400); RED CELL DISTRIBUTION WIDTH CV 14.7 % (11.5-14.5); RED CELL DISTRIBUTION WIDTH SD 54.9 fL (36.4-46.3); WHITE BLOOD COUNT 16.97 K/uL (4.8-10.8)
--- NOTE | 2017-03-25 05:37 | EMERGENCY ROOM VISIT NOTE ---
ED Visit Note First contact with patient: 05:30 CODE BLUE: Time 5:03 am on 03/25/17 Called to room 106 for code blue Code being run by Dr Wesley Code Status: full per Hospitalist Brief summary: 71 yr old male with h/o COPD with worsening mental status, respiratory difficulty followed by seizure episode about 30 minutes earlier requiring ativan 2mg IV. Continued worsening respiratory status, found to have acute acidosis with severe hypercapnia. On arrival patient with good vitals being bagged by respiratory. Patient obtunded though moving jaw some and taking some breaths on own. Minimal secretions in oropharynx. Moderately prolonged expiratory phase on lung exam. Procedure: Endotracheal Intubation: Indication: Respiratory Failure The patient was being bagged by respiratory with BVM. Suction, airway equipment , RSI drugs, respiratory equipment, and appropriate personnel were prepared prior to the initiation of the procedure. A time out was taken. Induction was performed with Fentanyl 50 mcg (already received ativan). Paralytic not required. After observing the clinical benefit of the medications, the airway was easily visualized utilizing a #4 Glidescope blade. A 8.0 size ETT tube was placed atraumatically to 22 cm at the lips using standard technique. The cuff inflated without signs of malfunction. There were bilateral breath sounds, positive colormetric change, no gastric sounds, a good capnography waveform, and post procedure pulse oximetry was 100%. Post intubation sedation and paralysis was administered using 2mg Versed and 50mcg Fentanyl. There were no complications. Dr Mar assisted me in the procedure.
--- NOTE | 2017-03-25 05:59 | DIAGNOSTIC IMAGING REPORT ---
CHEST ONE VIEW PORTABLE HISTORY: 71 years-old Male Resp Fail, ET Tube Placement (Already Taken) acute respiratory failure COMPARISON: Chest radiograph 03/18/2017, chest CT 03/19/2017 TECHNIQUE: Supine AP view of the chest FINDINGS: Endotracheal tube has been placed which terminates 3.3 cm superior to the nat[place] overlying the midline. Cardiac silhouette normal limits. Atherosclerosis of the aorta. Severe bullous emphysematous disease redemonstrated with areas of background chronic scarring. Superimposed patchy alveolar opacities redemonstrated within the lung bases and right perihilar distribution mildly worsened from comparison. No pneumothorax or large pleural effusion. Bones appear grossly intact. IMPRESSION: 1. Endotracheal tube terminates 3.3 cm superior to the natalia. 2. Bullous emphysema with worsened patchy basilar and right perihilar airspace opacities suggesting pneumonia. The above report was generated using voice recognition software. It may contain grammatical, syntax or spelling errors. Electronically signed by: Ariel Ramirez M.D. 03/25/2017 5:58 AM Dictated Date/Time: 03/25/2017 5:54 AM
--- NOTE | 2017-03-25 06:05 | Critical Care Consultation ---
Critical Care Consultation Date of Consultation: Mar 25, 2017. Attending Physician: Mando Kelley M.D. Reason for Consultation: Acute Respiratory Failure History of Present Illness Patient is a 71 year old male that was previously in room 289 when a code purple was called at 0451. The patient was evaluated at bedside prior to the code by the [facility] Hospitalist Dr. Wesley whom found the patient cyanotic and hypoxic and then witnessed a possible seizure where the patient was experiencing uncontrollable shaking of the head and arms. The patient was given 5mg of Ativan at the bedside and a code purple was called to initiate intubation. The patient was transferred to room 106 in the ICU where the patient was given 2mg of Versed and 50mg Fentanyl and subsequently intubated using a GlideScope. ABG at bedside this morning was reported to have a pH of 6.9 with a CO2 > 120. The patient was admitted to the hospital for a presumed COPD exacerbation, experiencing worsening productive cough and dyspnea on exertion. The patient is on home 3L of oxygen at baseline and takes Symbicort, Combivent, and Azithromycin at home. Past Medical/Surgical History COPD, Diverticulosis, GERD, BPH Family History Diabetes mellitus FH: heart disease Social History Smoking Status: Current Every Day Smoker Marital Status: single Occupation Status: retired Allergies Coded Allergies: POLLEN (Verified Allergy, Unknown, SEASONAL ALLERGIES, 03/18/17) Lactose Intolerance (Verified Adverse Reaction, Intermediate, GI SYMPTOMS , 03/18/17) Home Medications Scheduled Acetazolamide (Acetazolamide), 250 MG PO BID Aspirin (Aspirin Ec), 81 MG PO QAM Azithromycin (Zithromax), 500 MG PO 3XWK Budesonide/Formoterol Fumarate (Symbicort 160/4.5 Inhaler ), 2 PUFFS INH BID Doxazosin Mesylate (Doxazosin Mesylate), 8 MG PO DAILY Furosemide (Lasix), 20 MG PO DAILY Home O2 Therapy (Oxygen), 2-2.5 LITERS NA CONTINOUS Ipratropium-Albuterol (Duoneb), 1 TREATMENT INH Q4H Levocetirizine Dihydrochloride (Levocetirizine Dihydrochl), 5 MG PO DAILY Pantoprazole (Protonix), 40 MG PO QAM Potassium Chloride (Micro-K Ext Rel), 10 MEQ PO BID Triamcinolone Acet (Aristocort 0.1%), 1 APPLN TD BID Scheduled PRN Acetaminophen (Tylenol), 650 MG PO Q4H PRN for Pain or Fever Azelastine Hcl (Astelin Nasal [place]), 1-2 SPRAYS NA BID PRN for ALLERGIES Ipratropium-Albuterol (Combivent Respimat), 1 PUFFS INH Q4H PRN for SOB/COUGH Levofloxacin (Levaquin), 750 MG PO DAILY PRN for RESCUE KIT Naproxen (Naprosyn), 500 MG PO BID W/FOOD PRN for Pain Current Inpatient Medications Current Inpatient Medications Medications (Trade) Dose Ordered Sig/Rosemary Route Start Time Stop Time Status Last Admin Dose Admin Ampicillin Sodium/ Sulbactam Sodium 3000 mg/Sodium Chloride 108 ml @ 200 mls/hr Q6H IV 03/18/17 22:00 03/25/17 21:59 03/25/17 04:10 200 MLS/HR Acetaminophen (Tylenol Tab) 650 mg Q4H PRN PO 03/18/17 20:30 04/17/17 20:29 03/24/17 22:14 650 MG Hydromorphone HCl (Dilaudid Inj) 0.5 mg Q3H PRN IV 03/18/17 20:30 04/01/17 20:29 Tramadol HCl (Ultram Tab) 25 mg Q6H PRN PO 03/18/17 20:30 04/17/17 20:29 Ampicillin Sodium/ Sulbactam Sodium (Consult) 1 ea UD PRN N/A 03/18/17 20:45 04/17/17 20:44 Pantoprazole Sodium (Protonix Tab) 40 mg QAM PO 03/19/17 09:00 04/18/17 08:59 03/24/17 08:39 40 MG Triamcinolone Acetonide (Kenalog 0.1% Cream) 1 appln BID EXT 03/18/17 21:00 04/17/17 20:59 03/23/17 21:04 1 APPLN Miscellaneous Information (Order Awaiting Action) 1 ea QS N/A 03/19/17 00:00 04/18/17 00:00 Fluticasone Propionate (Flonase Nasal [place]) 1 sprays DAILY NA 03/20/17 09:00 04/19/17 08:59 03/24/17 07:44 1 SPRAYS Budesonide/ Formoterol Fumarate (Symbicort 160/ 4.5 Inh) 2 puffs BID INH 03/20/17 09:00 04/19/17 08:59 03/24/17 20:52 2 PUFFS Levalbuterol (Xopenex 1.25MG/ 0.5ML Neb) 1.25 mg Q6H PRN INH 03/21/17 15:00 04/17/17 20:59 Albuterol/ Ipratropium (Combivent Respimat Inh) 1 puffs QID INH 03/21/17 10:15 04/19/17 08:44 03/24/17 20:52 1 PUFFS Sodium Chloride ([place] Nasal [place]) 1 sprays PRN PRN NA 03/22/17 02:15 04/21/17 02:14 Enteral Nutritional Formula (Boost) 1 can BIDM PO 03/22/17 17:00 04/21/17 16:59 03/24/17 16:15 1 CAN Tamsulosin HCl (Flomax Cap) 0.4 mg HS PO 03/23/17 21:00 04/22/17 20:59 03/24/17 20:53 0.4 MG Fluconazole (Diflucan Tab) 100 mg QAM PO 03/24/17 09:00 04/01/17 09:01 03/24/17 07:45 100 MG Guaifenesin (Organidin Nr Tab) 200 mg Q4 PRN PO 03/25/17 00:00 04/24/17 00:00 03/24/17 22:15 200 MG Fentanyl Citrate (Fentanyl Inj) 50 mcg Q1H PRN IV 03/25/17 05:15 04/08/17 05:14 Famotidine 20 mg/ Dextrose 102 ml @ 200 mls/hr Q12H IV 03/25/17 05:15 04/24/17 05:14 UNV Midazolam HCl (Versed Inj) 2 mg Q2H PRN IV 03/25/17 05:15 04/24/17 05:14 Review of Systems Unable to obtain ROS at time of exam because patient sedated and intubated Physical Exam Date Time Temp Pulse Resp B/P (MAP) Pulse Ox O2 Delivery O2 Flow Rate FiO2 03/25/17 05:15 140 80 3.0 03/25/17 00:16 37.3 80 18 144/73 (96) 98 3.0 03/25/17 00:00 Nasal Cannula 3.0 03/24/17 20:00 Nasal Cannula 3.0 03/24/17 20:00 37.0 92 18 148/75 (99) 98 Nasal Cannula 3.0 03/24/17 16:00 Nasal Cannula 3.0 03/24/17 15:53 37.1 82 18 161/71 (101) 99 Nasal Cannula 3.0 03/24/17 08:30 Nasal Cannula 3.0 03/24/17 08:28 36.7 69 18 138/72 (94) 100 Nasal Cannula 3.0 General Appearance: other (Patient breathing but sedated after experiencing seizure) Head: normocephalic, atraumatic Eyes: other (pupils constricted bilaterally) Respiratory: other (bilateral wheezing and crackles at the bases) Cardiovasular: regular rate/rhythm, normal S1S2, no M/G/R Abdomen: non tender, normal bowel sounds Upper Extremities: no edema Laboratory Results Last 24 Hours Test 03/24/17 10:25 03/24/17 12:14 03/25/17 04:43 03/25/17 04:53 Stool Occult Blood NEGATIVE Bedside Glucose 121 mg/dl 221 mg/dl White Blood Count 16.97 K/uL Red Blood Count 3.25 M/uL Hemoglobin 10.1 g/dL Hematocrit 33.1 % Mean Corpuscular Volume 101.8 fL Mean Corpuscular Hemoglobin 31.1 pg Mean Corpuscular Hemoglobin Concent 30.5 g/dl Platelet Count 109 K/uL Mean Platelet Volume 10.9 fL Neutrophils (%) (Auto) 79.8 % Lymphocytes (%) (Auto) 10.1 % Monocytes (%) (Auto) 5.8 % Eosinophils (%) (Auto) 2.9 % Basophils (%) (Auto) 0.2 % Neutrophils # (Auto) 13.53 K/uL Lymphocytes # (Auto) 1.72 K/uL Monocytes # (Auto) 0.99 K/uL Eosinophils # (Auto) 0.49 K/uL Basophils # (Auto) 0.04 K/uL RDW Standard Deviation 54.9 fL RDW Coefficient of Variation 14.7 % Immature Granulocyte % (Auto) 1.2 % Immature Granulocyte # (Auto) 0.20 K/uL Sodium Level 139 mmol/L Potassium Level 4.0 mmol/L Chloride Level 104 mmol/L Carbon Dioxide Level 30 mmol/L Anion Gap 5.0 mmol/L Blood Urea Nitrogen 25 mg/dl Creatinine 2.02 mg/dl Est Creatinine Clear Calc Drug Dose 27.6 ml/min Estimated GFR () 36.8 Estimated GFR (Non- 31.8 BUN/Creatinine Ratio 12.4 Random Glucose 194 mg/dl Calcium Level 7.8 mg/dl Total Bilirubin 0.5 mg/dl Direct Bilirubin 0.1 mg/dl Aspartate Amino Transf (AST/SGOT) 18 U/L Alanine Aminotransferase (ALT/SGPT) 18 U/L Alkaline Phosphatase 61 U/L Total Protein 6.0 gm/dl Albumin 2.9 gm/dl Assessment & Plan Patient is a 71 year old male with a history of COPD that had a code purple called this morning for acute respiratory failure and possible seizure Neuro - CAM-ICU Positive --> Currently sedated and intubated - Propofol drip - Fentanyl + Versed - Received 5mg Ativan at approximately 0450 for witnessed seizure - Neuro consult - EEG, MRI head - Respiratory status significantly improving with intubation and ventilation, pointing to possible seizure as cause Cardiovascular - Currently hemodynamically stable - Mild tachycardia s/p event so will continue to monitor on telemetry - EKG after seizure shows sinus tachycardia with PVCs - Troponin x 3 - ECHO this admission shows EF 55-60% with normal LV function Respiratory - Currently being treated for COPD exacerbation - Intubated and on Ventilator AC/20/500/5/40% - Initial ABG prior to vent - pH 6.9, CO2 > 130 - Most recent ABG after ventilation - pH 7.35, CO2 normalized - Continue inhalers from admission - Pulmonary on board - CXR shows tube in place with worsening right perihilar opacities concerning for worsening pneumonia - Continue Unasyn (Day 7 of therapy) GI - NPO at this time - Dysphagia diet when responsive --> Video swallow study during this admission - LFTs unremarkable Renal - Worsening CHASITY - Normosol 100mls/hr - Cabral catheter placed during code - 5mm obstructing stone distal right ureter Heme - Anemia improving - Leukocytosis possibly secondary to steroid therapy ID - Currently on Day 7 of Unasyn therapy Endocrine - Sugars currently elevated - Consider SSI for control if patient persistently hyperglycemic DVT Prophylaxis - Heparin 5,000 units q12 GI Prophylaxis - Famotidine Code Status - Full Resuscitation Resident Physician Supervision Note: Dr. Mar was resident physician during care of patient. I separately evaluated patient and did history and exam. I discussed the case with the resident and generally agree with the findings and plan. Patient suffered hypoxic hypercarbic respiratory arrest this morning with pH 6.9. Nursing staff reported generalized myoclonic twitching when he was found unresponsive and was concerned this may represent seizure activity. Patient was emergently intubated and placed on mechanical ventilation. Waveform while demonstrated prolonged exhalation phase, patient's hypercarbia rapidly improved. Patient did not arouse quickly with normalization of by mouth 2 and PCO2. He demonstrated a up forward left gaze and did not respond to painful stimuli. Stat CT scan of the head was undertaken to exclude intracranial hemorrhage. This did not reveal ICH and a stat EEG was obtained to evaluate for seizure and status epilepticus. CVA is still remains in the differential, looking through his past history there does not appear to be a history of atrial fibrillation. I have placed an order for an MRI at this time. I discussed this case with the hospitalist staff. We have also consult did neurology for acute encephalopathy. Patient has completed approximately 6 days of therapy for COPD exacerbation, we will continue antibiotic therapy for a total of 10 days given the recent respiratory arrest. A Cabral has been placed, it is noted that he has worsening renal function, I believe this is likely a obstructive uropathy. I have personally spent 95 minutes of critical care time in the direct management of this patient. This is a life/limb threatening event. This includes time spent evaluating patient, direct bedside care, chart review, placing orders, interpretation of diagnostic studies, discussion with consultants, patient, and family members, as well as other required patient management activities. This time is exclusive of all separately billable procedures, and teaching time and separate from and in addition to any other critical care service time. Documented By: Izaiah Katz DO Resident Tracking Resident Involvement: Resident Care Provided Care Provided: [facility] Medicine
[2017-03-25] MEDS ORDERED: PROPOFOL IV EMULSION 10 MG/ML 100 ML VIAL IV ONE (06:06)
[2017-03-25] MEDS ORDERED: PROPOFOL IV EMULSION 10 MG/ML 100 ML VIAL IV PRN (06:06)
[2017-03-25] MEDS: NORMOSOL R 1,000 ML IV SCH (06:08)
--- NOTE | 2017-03-25 06:08 | Progress Note ---
Progress Note Date of Service Mar 25, 2017. Progress Note Code francisco j was called at around 5am. Patient was unresponsive and was found to be cyanotic, tachycardiac, BP systolic in 140s, low Oxygen sats. Patient was placed on Oxy mask and Sats were in Low 90s. Patient has a seizure like episode and was given 2mg Ativan. Blood sugar, stat labs ordered. ABG consistent with hypercapnic respiratory acidosis. Patient has B/L rhonchi, palpable pulse on exam. Patient was transferred to ICU and was intubated with the help of ER physician. ICU team helped with the Code. at bedside for further management. Patient's son was made aware of the patient's condition.
--- NOTE | 2017-03-25 06:44 | DIAGNOSTIC IMAGING REPORT ---
HEAD WITHOUT CONTRAST (CT) CLINICAL HISTORY: 71 years-old Male with Seizure Activity, Palsy. Acute seizure TECHNIQUE: Multiple axial CT images of the head were obtained without contrast. A dose lowering technique was utilized adhering to the principles of ALARA. CT DOSE: 614.27 mGy.cm COMPARISON: None. FINDINGS: No acute intracranial hemorrhage, midline shift, intracranial mass, hydrocephalus, territorial ischemia or abnormal extra-axial collection. Mild atrophy. Ill-defined areas of low-attenuation within the subcortical and periventricular white matter suggests chronic microvascular ischemic changes. The calvarium is intact. The mastoid air cells, and middle ear cavities are clear. Moderate mucosal thickening of the ethmoid air cells and imaged right maxillary sinus. 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 IMPRESSION: 1. No acute intracranial abnormality identified. 2. Mild atrophy with mild chronic microvascular ischemic changes. The above report was generated using voice recognition software. It may contain grammatical, syntax or spelling errors. Electronically signed by: Ariel Ramirez M.D. 03/25/2017 6:42 AM Dictated Date/Time: 03/25/2017 6:39 AM
[2017-03-25] MEDS: FAMOTIDINE IV INJ 20 MG in SYRINGE 3 ML IV SCH ×2 (06:52→16:24)
--- NOTE | 2017-03-25 07:07 | DIAGNOSTIC IMAGING REPORT ---
ORBITS FOR MRI HISTORY: 71 years-old Male new onset seizure clearance for MRI. COMPARISON: Head CT of same day TECHNIQUE: 2 views of the orbits FINDINGS: No opaque foreign body of the orbits. Endotracheal and enteric tubes are noted. No acute facial bone fracture or dislocation. Mucosal thickening of the right maxillary sinus redemonstrated. Hypoplasia of the left frontal sinus. IMPRESSION: No opaque foreign body. The above report was generated using voice recognition software. It may contain grammatical, syntax or spelling errors. Electronically signed by: Ariel Ramirez M.D. 03/25/2017 7:05 AM Dictated Date/Time: 03/25/2017 7:04 AM
[2017-03-25 07:37] LABS: ALBUMIN 2.8 gm/dl (3.4-5.0); CALCIUM 7.8 mg/dl (8.5-10.1); CREATININE 1.79 mg/dl (0.60-1.40); POTASSIUM 3.7 mmol/L (3.5-5.1)
[2017-03-25 07:46] LABS: TOTAL PROTEIN 5.4 gm/dl (6.4-8.2)
[2017-03-25] MEDS: BOOST VANILLA PO SCH (08:21)
[2017-03-25] MEDS: BUDESONIDE/FORMOTEROL FUMARATE 160/4.5 60 PUFFS/INHALER INH SCH (08:21)
[2017-03-25] MEDS: FLUTICASONE PROPIONATE NA SPR 16 GM BTL SCH (08:21)
[2017-03-25] MEDS: PANTOprazole SOD 40 MG TAB PO SCH (08:22)
[2017-03-25] MEDS: IPRATROPIUM BROMIDE/ALBUTEROL respimat INH INH SCH ×4 (08:22→21:00)
[2017-03-25] MEDS: TRIAMCINOLONE ACET 0.1% CR 15 GM TUBE EXT SCH ×2 (08:23→21:51)
[2017-03-25] MEDS ORDERED: ENOXAPARIN 40 MG/0.4 ML SYR SQ SCH (09:00)
[2017-03-25] MEDS ORDERED: HEPARIN SOD 5000 UNIT/0.5 ML CARP SC SCH (09:30)
[2017-03-25] MEDS: FLUCONAZOLE 100 MG TAB PO SCH (09:31)
--- NOTE | 2017-03-25 09:58 | DIAGNOSTIC IMAGING REPORT ---
CHEST ONE VIEW PORTABLE HISTORY: 71 years-old Male og tube placement status post placement of an enteric tube COMPARISON: Portable chest radiograph 03/25/2017 TECHNIQUE: Portable AP view of the chest FINDINGS: The enteric tube has been placed which terminates below the diaphragm outside the [id number]. Endotracheal tube overlies the midline, 3.6 cm superior to the [place]. Cardiac silhouette is within normal limits. Atherosclerosis of the aorta. Severe bullous emphysematous disease. There is improved aeration of the bilateral lungs with persistent right perihilar and right greater than left bibasilar opacities. No pneumothorax or large pleural effusion. Bones of the chest appear grossly intact. IMPRESSION: 1. Status post placement of an enteric tube which terminates below the diaphragm outside the [id number]. 2. Endotracheal tube terminates 3.6 cm superior to the [place]. 3. Bullous emphysema with improved aeration of the lungs. The above report was generated using voice recognition software. It may contain grammatical, syntax or spelling errors. Electronically signed by: Ariel Ramirez M.D. 03/25/2017 9:57 AM Dictated Date/Time: 03/25/2017 9:54 AM
--- NOTE | 2017-03-25 09:58 | Progress Note ---
Medicine Progress Note Date & Time of Visit: Mar 25, 2017 at 09:10 . Subjective Found to be having apparent seizure ~ 05:[address] this morning[address] Cardiac rhythm ST. Recorded O2 sats as low as 80% on 3 L NC. Transferred to ICU. Intubated. Placed on mechanical ventilation. Unresponsive at time of my assessment this morning. . Objective Last 8 Hrs Date Time Temp Pulse Resp B/P (MAP) Pulse Ox O2 Delivery O2 Flow Rate FiO2 03/25/17 08:00 25 03/25/17 08:00 95 Mechanical Ventilator 25 03/25/17 08:00 36.6 101 12 156/98 (117) 95 Mechanical Ventilator 03/25/17 07:51 25 03/25/17 06:14 30 03/25/17 05:27 60 03/25/17 05:15 140 80 3.0 Physical Exam: General- intubated on vent, no acute distress Eyes- anicteric ENT- oral ETT, oral GT Neck- + JVD; trachea midline Lungs- equal breath sounds; diffuse mild wheezing, few scattered rhonchi Heart- distant heart sounds, RRR, tachy, ectopy, no gallop appreciated Abdomen- slightly distended, quiet BS, soft, nontender Extremities- no pretibial edema or calf tenderness; SCD's applied Skin- warm and dry Neuro- eyes open, deviated to left; pupils reactive; not following commands during my assessment; Babinski's equivocal bilaterally . Laboratory Results: Last 24 Hours Test 03/24/17 10:25 03/24/17 12:14 03/25/17 04:43 03/25/17 04:53 Stool Occult Blood NEGATIVE Bedside Glucose 121 mg/dl 221 mg/dl White Blood Count 16.97 K/uL Red Blood Count 3.25 M/uL Hemoglobin 10.1 g/dL Hematocrit 33.1 % Mean Corpuscular Volume 101.8 fL Mean Corpuscular Hemoglobin 31.1 pg Mean Corpuscular Hemoglobin Concent 30.5 g/dl Platelet Count 109 K/uL Mean Platelet Volume 10.9 fL Neutrophils (%) (Auto) 79.8 % Lymphocytes (%) (Auto) 10.1 % Monocytes (%) (Auto) 5.8 % Eosinophils (%) (Auto) 2.9 % Basophils (%) (Auto) 0.2 % Neutrophils # (Auto) 13.53 K/uL Lymphocytes # (Auto) 1.72 K/uL Monocytes # (Auto) 0.99 K/uL Eosinophils # (Auto) 0.49 K/uL Basophils # (Auto) 0.04 K/uL RDW Standard Deviation 54.9 fL RDW Coefficient of Variation 14.7 % Immature Granulocyte % (Auto) 1.2 % Immature Granulocyte # (Auto) 0.20 K/uL Sodium Level 139 mmol/L Potassium Level 4.0 mmol/L Chloride Level 104 mmol/L Carbon Dioxide Level 30 mmol/L Anion Gap 5.0 mmol/L Blood Urea Nitrogen 25 mg/dl Creatinine 2.02 mg/dl Est Creatinine Clear Calc Drug Dose 27.6 ml/min Estimated GFR () 36.8 Estimated GFR (Non- 31.8 BUN/Creatinine Ratio 12.4 Random Glucose 194 mg/dl Calcium Level 7.8 mg/dl Total Bilirubin 0.5 mg/dl Direct Bilirubin 0.1 mg/dl Aspartate Amino Transf (AST/SGOT) 18 U/L Alanine Aminotransferase (ALT/SGPT) 18 U/L Alkaline Phosphatase 61 U/L Total Protein 6.0 gm/dl Albumin 2.9 gm/dl Test 03/25/17 06:08 03/25/17 06:49 Blood Gas Sample Site L Radial Bedside Blood Gas pH (LAB) 7.32 Bedside Blood Gas pCO2 (LAB) 57 mmHg Bedside Blood Gas pO2 (LAB) 164 mmHg Bedside Blood Gas HCO3 (LAB) 30 meq/L Bedside Blood Gas Total CO2 31 mEq/l Bedside Blood Gas Base Excess (LAB) 4.0 meq/L Bedside Blood Gas O2 Saturation 99.0 % Howard Test Pass Oxygen Delivery Device Ventilator Bedside Oxygen Rate (breaths/min) 22 Blood Gas Minute Ventilation 11.8 Bedside FiO2 40 % Blood Gas Tidal Volume 550 Blood Gas PEEP 5 Sodium Level 140 mmol/L Potassium Level 3.7 mmol/L Chloride Level 104 mmol/L Carbon Dioxide Level 29 mmol/L Anion Gap 7.0 mmol/L Blood Urea Nitrogen 25 mg/dl Creatinine 1.79 mg/dl Est Creatinine Clear Calc Drug Dose 31.5 ml/min Estimated GFR () 42.6 Estimated GFR (Non- 36.8 BUN/Creatinine Ratio 14.1 Random Glucose 174 mg/dl Calcium Level 7.8 mg/dl Total Bilirubin 0.6 mg/dl Aspartate Amino Transf (AST/SGOT) 14 U/L Alanine Aminotransferase (ALT/SGPT) 16 U/L Alkaline Phosphatase 51 U/L Troponin I 0.308 ng/ml Total Protein 5.4 gm/dl Albumin 2.8 gm/dl Globulin 2.6 gm/dl Albumin/Globulin Ratio 1.1 Diagnostic Imaging: CHEST ONE VIEW PORTABLE FINDINGS: Endotracheal tube has been placed which terminates 3.3 cm superior to the natalia overlying the midline. Cardiac silhouette normal limits. Atherosclerosis of the aorta. Severe bullous emphysematous disease redemonstrated with areas of background chronic scarring. Superimposed patchy alveolar opacities redemonstrated within the lung bases and right perihilar distribution mildly worsened from comparison. No pneumothorax or large pleural effusion. Bones appear grossly intact. IMPRESSION: 1. Endotracheal tube terminates 3.3 cm superior to the natalia. 2. Bullous emphysema with worsened patchy basilar and right perihilar airspace opacities suggesting pneumonia. Electronically signed by: Ariel Ramirez M.D. 03/25/2017 5:58 AM HEAD WITHOUT CONTRAST (CT) FINDINGS: No acute intracranial hemorrhage, midline shift, intracranial mass, hydrocephalus, territorial ischemia or abnormal extra-axial collection. Mild atrophy. Ill-defined areas of low-attenuation within the subcortical and periventricular white matter suggests chronic microvascular ischemic changes. The calvarium is intact. The mastoid air cells, and middle ear cavities are clear. Moderate mucosal thickening of the ethmoid air cells and imaged right maxillary sinus. 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 IMPRESSION: 1. No acute intracranial abnormality identified. 2. Mild atrophy with mild chronic microvascular ischemic changes. Electronically signed by: Ariel Ramirez M.D. 03/25/2017 6:42 AM . Other Studies: EKG performed at 05:[address] at 130 / minute, ? PAC's with aberrancy vs PVC's, T-wave flattening inferiorly and laterally, no significant ST deviation. . Assessment & Plan CARDIOVASCULAR Sinus tachycardia. BP's elevated. Trop 0.308. EKG- ST, no acute ST changes. Suspect that elevated troponin nonspecific and secondary to other processes. PULMONARY Severe O2 dependent COPD. Admitted with exacerbation of COPD attributed to bronchiectasis. Pulmonary status was improving with antibiotics, steroids, nebs. Worsening oxygenation this morning, ? mechanism. Now intubated. Management per [facility]. GI History of GERD. Esophageal dysmotility noted on swallowing evaluation. Barium esophagram was pending (waiting for pulmonary status to improve). CT 03/23 demonstrated cholelithiasis with thickening of gallbladder wall. Clinically, did not appear to have cholecystitis. LFT's today normal. Now receiving famotidine for GI prophylaxis. RENAL / LYTES Baseline creatinine ~ 1.0 in 2016. Serum creatine at time of admission 1.72. Creatinine today = 1.79. Maintain volume status. Avoid potential nephrotoxins when able. 5 mm obstructing calculus distal right ureter noted on CT 03/23. Conservative management at this time recommended by Urology. Continue tamsulosin. ID Was receiving IV ampicillin / sulbactam for bronchiectasis. Was receiving IV fluconazole for Treva UTI. Cholelithiasis without clinical cholecystitis as noted above. Low grade temp evening of admission, afebrile since then. WBC elevated today, ? demargination from physiologic stress. Remains on IV ampicillin / sulbactam. HEME Pancytopenic. Hematology consulted. Acetazolamide discontinued. Counts stable. May need further evaluation in the future (e.g., bone marrow). NEURO Possible seizure this morning. Head CT negative for bleed or apparent infarct. EEG done- results pending. MRI pending. VTE PROPHYLAXIS Had been utilizing SCD's in light of thrombocytopenia. Enoxaparin added. DISPOSITION To be determined. Critically ill at this time. Arrangements were underway for transfer to [facility] for skilled care. Family Medicine follow-up with Dr. Ashley. . Consultants: Pulmonary Medicine- Dr. Cabral Hematology- Dr. Lorenzo Kumar Urology- CAMERON Crain and Dr. Stark. [facility] . Procedures: CT chest videofluoroscopic swallowing evaluation CT abdomen and pelvis CT head EEG IV fluids IV meds endotracheal intubation mechanical ventilation . Current Inpatient Medications: Current Inpatient Medications Medications (Trade) Dose Ordered Sig/Rosemary Route Start Time Stop Time Status Last Admin Dose Admin Ampicillin Sodium/ Sulbactam Sodium 3000 mg/Sodium Chloride 108 ml @ 200 mls/hr Q6H IV 03/18/17 22:00 03/25/17 21:59 03/25/17 04:10 200 MLS/HR Acetaminophen (Tylenol Tab) 650 mg Q4H PRN PO 03/18/17 20:30 04/17/17 20:29 03/24/17 22:14 650 MG Hydromorphone HCl (Dilaudid Inj) 0.5 mg Q3H PRN IV 03/18/17 20:30 04/01/17 20:29 Ampicillin Sodium/ Sulbactam Sodium (Consult) 1 ea UD PRN N/A 03/18/17 20:45 04/17/17 20:44 Triamcinolone Acetonide (Kenalog 0.1% Cream) 1 appln BID EXT 03/18/17 21:00 04/17/17 20:59 03/25/17 08:23 1 APPLN Miscellaneous Information (Order Awaiting Action) 1 ea QS N/A 03/19/17 00:00 04/18/17 00:00 Fluticasone Propionate (Flonase Nasal [place]) 1 sprays DAILY NA 03/20/17 09:00 04/19/17 08:59 Future Hold 03/24/17 07:44 1 SPRAYS Budesonide/ Formoterol Fumarate (Symbicort 160/ 4.5 Inh) 2 puffs BID INH 03/20/17 09:00 04/19/17 08:59 Future Hold 03/24/17 20:52 2 PUFFS Levalbuterol (Xopenex 1.25MG/ 0.5ML Neb) 1.25 mg Q6H PRN INH 03/21/17 15:00 04/17/17 20:59 Albuterol/ Ipratropium (Combivent Respimat Inh) 1 puffs QID INH 03/21/17 10:15 04/19/17 08:44 03/24/17 20:52 1 PUFFS Sodium Chloride ([place] Nasal [place]) 1 sprays PRN PRN NA 03/22/17 02:15 04/21/17 02:14 Future Hold Enteral Nutritional Formula (Boost) 1 can BIDM PO 03/22/17 17:00 04/21/17 16:59 Future Hold 03/24/17 16:15 1 CAN Tamsulosin HCl (Flomax Cap) 0.4 mg HS PO 03/23/17 21:00 04/22/17 20:59 03/24/17 20:53 0.4 MG Fluconazole (Diflucan Tab) 100 mg QAM PO 03/24/17 09:00 04/01/17 09:01 03/24/17 07:45 100 MG Guaifenesin (Organidin Nr Tab) 200 mg Q4 PRN PO 03/25/17 00:00 04/24/17 00:00 Future Hold 03/24/17 22:15 200 MG Fentanyl Citrate (Fentanyl Inj) 50 mcg Q1H PRN IV 03/25/17 05:15 04/08/17 05:14 Famotidine 20 mg/ Syringe 5 ml @ 2.5 mls/min Q12H IV 03/25/17 06:00 04/24/17 05:59 03/25/17 06:52 2.5 MLS/MIN Midazolam HCl (Versed Inj) 2 mg Q2H PRN IV 03/25/17 05:15 04/24/17 05:14 Propofol (Diprivan Iv Emulsion 100ml Vial) 1 dose UD PRN IV 03/25/17 06:06 03/28/17 06:05 Parenteral Electrolyte Solution 1,000 ml @ 100 mls/hr Q10H IV 03/25/17 06:00 04/24/17 05:59 03/25/17 06:08 100 MLS/HR Heparin Sodium (Porcine) (Heparin Sq 5000 Unit/0.5ml) 5,000 unit Q12 SC 03/25/17 09:30 04/24/17 09:29
[2017-03-25] MEDS ORDERED: MIDAZOLAM HCL 5 MG/ML 1 ML VIAL IV PRN (10:15)
--- NOTE | 2017-03-25 10:17 | Procedure Note ---
Procedure Note Date of Service Mar 25, 2017. Procedure Note Procedure Date: 03/25/2017 Procedure: Endotracheal intubation Pre-procedure Diagnosis: Hypoxic respiratory failure Post-procedure Diagnosis: same as above Prior to Procedure: Informed Consent: emergent Attending Staff: Fatou Katz DO Indications: Patient is a 71-year-old male who has acute encephalopathy who had a hypercarbic hypoxic respiratory arrest earlier. His blood gases normalized and mental status improved wasn't appropriate candidate for extubation. Following extubation patient's mental status declined, these likely has limited gag reflex and had impending respiratory failure with hypoxia noted on his ABG The identity of the patient was confirmed and a bedside time out was performed. Description of Procedure: Patient was evaluated and required intubation for impending respiratory failure. The patient was prepared in the usual fashion. A 3 Mac laryngoscope was used. A 8.0 Fr endotrachial tube was placed endotracheally to 22 cm at the teeth. A grade 1 view was obtained. The endotracheal tube was noted to pass through the vocal cords. Chest rise was bilateral. Bilateral breath sounds were heard without air sounds in the abdomen. Mist was noted in the endotracheal tube. End-tidal CO2 measurement was positive. Chest x-ray shows proper endotracheal tube placement. Complications: None Findings: not applicable Specimens: not applicable Estimated blood loss: Zero
[2017-03-25] MEDS ORDERED: FENTANYL CITRATE INJ 50 MCG/1 ML 2 ML VIAL IV ONE (10:19)
[2017-03-25] MEDS ORDERED: MIDAZOLAM HCL 5 MG/ML 2ML VIAL IV ONE (10:19)
[2017-03-25] MEDS ORDERED: ASPIRIN 300 MG SUPP PR ONE (10:45)
--- NOTE | 2017-03-25 10:58 | DIAGNOSTIC IMAGING REPORT ---
CHEST ONE VIEW PORTABLE HISTORY: 71 years-old Male re-intubation respiratory failure with repositioning of enteric tube COMPARISON: Chest radiograph 03/25/2017 at 9:36 AM TECHNIQUE: Portable AP view of the chest FINDINGS: Cardiac silhouette within normal limits. Atherosclerosis of the aorta. Severe bullous emphysematous disease with persistent perihilar and right greater than left bibasilar opacities. No pneumothorax or large pleural effusion. Endotracheal tube overlies the midline, 5.0 cm superior to the natalia. Enteric tube courses below the diaphragm with distal tip projected of the left upper abdomen, likely within the mid gastric lumen. Bones appear grossly intact. IMPRESSION: 1. Endotracheal tube terminates 5.0 cm superior to the natalia. 2. Enteric tube terminates within the left upper abdomen within the region of the mid gastric lumen. 3. Stable appearance of the lungs. The above report was generated using voice recognition software. It may contain grammatical, syntax or spelling errors. Electronically signed by: Ariel Ramirez M.D. 03/25/2017 10:57 AM Dictated Date/Time: 03/25/2017 10:54 AM
--- NOTE | 2017-03-25 11:24 | Pharmacy Progress Note ---
Pharmacy Abx Dose Short Note Date of Service Mar 25, 2017. Assessment & Plan Assessment 71 year old male receiving Ampicillin/sulbactam 3 grams IV every six hours for treatment of aspiration pneumonia COPD exacerbation. Day # 10/23 of antimicrobial therapy. Plan Unasyn Unasyn dosing interval increased to every 12 hours secondary to changes in renal function, s/p seizure and discussion with Dr Katz. Patient's initial SCr was 1.72mg/dl on 03/18 and fluctuating over the last week with an overnight increase to 2.92mg/dl. Estimated ClCr of 25ml/min with most recent SCr in a low weight gentleman. Unasyn dosing guidelines: Patients with Renal Impairment Dosing CrCl > 30 mL/min: No dosage adjustment needed. CrCl 1530 mL/min: Extend dosing interval of the selected dosage to every 12 hrs. CrCl 515 mL/min: Extend dosing interval of the selected dosage to every 24 hrs. Pharmacy will continue to follow and will adjust dose/frequency as necessary. Thank you.
[2017-03-25] MEDS ORDERED: VECURONIUM BROMIDE 10 MG VIAL IV PRN (12:00)
--- NOTE | 2017-03-25 14:13 | DIAGNOSTIC IMAGING REPORT ---
BRAIN W/O FOR SEIZURE HISTORY: 71 years-old Male new onset seizure acute seizure with respiratory failure COMPARISON: Head CT 03/25/2017 TECHNIQUE: Multiplanar multisequence MRI of the brain was obtained without contrast with thin section coronal T2 images noted utilizing institutional seizure protocol. FINDINGS: The large field view educational speech language clinician localizer images demonstrate no gross abnormality. There is slightly increased signal of the parietal occipital lobes posteriorly, right greater than left on the diffusion-weighted images as seen on image 17 series 4 which demonstrate increased signal on the ADC map, T2 and FLAIR images nicely seen on images 21 through 25 of series 7. Foci of increased signal predominantly appear to be cortically based and within the subcortical white matter. No focal mass identified. There is mild atrophy with probable mild chronic microvascular ischemic changes manifested by areas of subcortical and periventricular white matter T2/FLAIR signal. No hydrocephalus, midline shift, abnormal extra-axial collections or definite intracranial mass identified. Mesial temporal lobes appear to be within normal limits. The major flow voids at the level of the skull base appear patent. Small bilateral mastoid effusions. Moderate mucosal thickening of the right maxillary sinus with mild ethmoid mucosal thickening. The scalp, calvarium and soft tissues are unremarkable. IMPRESSION: 1. Cortically based areas of increased T2/FLAIR signal in the bilateral posterior parietal and occipital lobes demonstrate slightly increased signal on the diffusion-weighted images within this distribution, likely secondary to T2 shine through without definite acute infarction identified. These findings appear most consistent with acute hypertensive encephalopathy (posterior reversible encephalopathy syndrome or PRES), however additional differential considerations would include cerebral edema as a consequence of hypoglycemia or thrombotic microangiopathy among other etiologies. 2. Mild atrophy with probable mild chronic microvascular ischemic changes. 3. Unremarkable appearance of the bilateral mesial temporal lobes. The above report was generated using voice recognition software. It may contain grammatical, syntax or spelling errors. Electronically signed by: Ariel Ramirez M.D. 03/25/2017 2:12 PM Dictated Date/Time: 03/25/2017 1:57 PM
--- NOTE | 2017-03-25 14:33 | CONSULTATION REPORT ---
DATE OF CONSULTATION: 03/25/2017 CONSULTATION FOR: Mando Kelley MD HISTORY OF PRESENT ILLNESS: Meek is 71 years old, patient of Dr. Hamzah Ashley, was admitted to this hospital for respiratory failure due to an exacerbation of COPD. I refer the reader to prior notes that he was doing reasonably well, having been transferred to room 289, when apparently a code purple was called early this morning. Dr. Wesley found patient cyanotic, hypoxic and then witnessed a possible generalized seizure with some shaking of the head and arms, but nothing focal was described. He received 5 mg of Ativan at the bedside. He was transferred to room 106 and was given 2 mg of Versed and 50 mg of fentanyl and subsequently intubated and the arterial blood gas at that point was reported to have a pH of 6.9 with a pCO2 of 120. He subsequently has remained intubated and has head and eye deviation to the left and there is a question of whether his responsiveness on the right is diminished compared to the left. He has had an EEG which shows a lot of low voltage fast activity compatible with the benzodiazepines, but with adequate high frequency filtration the recording actually looks reasonably normal, say for a low voltage alpha, theta and beta activity without any focal abnormalities, focal slow wave activity and specifically without any ongoing seizure activity. A subsequent MRI to my reading, looks unremarkable, at least shows nothing on diffusion weighted imaging or on T2 signal that would look like an acute event and certainly there is no significant accumulation of chronic white matter changes and certainly no mass lesion is seen. He has not been treated empirically with anticonvulsants as no further seizure-like activity has been noted clinically and the EEG has shown nothing but there is concern obviously about structural lesion involving the left hemisphere particularly with the head and eye deviation, although thus far we do not see anything objective on MRI. PAST MEDICAL HISTORY: Reveals COPD, diverticulosis, GERD and BPH. MEDICATIONS AT HOME: Include Diamox, aspirin, azithromycin, Symbicort, doxazosin, Lasix, home O2, DuoNeb, pantoprazole, KCl, triamcinolone and levocetirizine dihydrochloride. As needed medications include Tylenol, Astelin nasal spray, Combivent, Levaquin, Naprosyn. ALLERGIES: HE HAS ALLERGIES TO POLLEN, AND LACTOSE INTOLERANCE. For treatment of his exacerbation of the COPD, he has been on a combination of amoxicillin and sulbactam. Other medications here include Dilaudid as needed, tramadol as needed, ampicillin, a combination as noted above, pantoprazole, triamcinolone cream, fluticasone, Symbicort, Xopenex, albuterol, sodium chloride, tamsulosin, fluconazole, guaifenesin, fentanyl, famotidine, and Versed which was given acutely. FAMILY HISTORY: Noncontributory. SOCIAL HISTORY: As recorded in the chart. REVIEW OF SYSTEMS: Could not be obtained from patient. Neurologic examination today reveals him to be stuporous, has head and eye deviation to the left. I really can get minimal withdrawal of the left arm and left leg to noxious stimuli, but nothing on the right. I cannot establish whether or not he has response to visual threat. I see no ongoing focal motor activity which could be indicative of clinical seizures. Toe signs are equivocal on both sides and sensory examination really cannot be performed in any detail. This is a man who has had an exacerbation of COPD, has developed some low grade renal dysfunction and has had what possibly was an unwitnessed seizure and now possible postictal Ishmael paralysis on the right. There is no evidence for a structural lesion which might be producing this and while we may miss an acute stroke in the first hours after its onset, I am suspicious with a negative MRI that he may not indeed have had a CVA and this indeed is a postictal issue. The cause of seizure remains unclear. He is certainly on penicillin preparation that has been described as causing seizures, particularly in the setting of renal failure and if the doses are high, this might be cause. He was also on some as needed tramadol which can lower seizure threshold. I am disinclined at this time to start him on anticonvulsants as we see no evidence for ongoing seizure activity, this was a one-time event and may have been precipitated by medications. If the paralysis and head and eye deviation persist, I will suggest we do another MRI to see if there is an evolving infarct and probably do another EEG in the morning. I will check back with him tomorrow. Addendum: Radiology is now interpreting the mri as showing a PRES type picture I have reviewed the images in question on my at home computer screen and am not that impressed that the findings indicated are any different than other areas of the cortex in terms of DWI intensity but would have to defer to Radiology who have much higher resolution screens to view the images Even if this were a PRES picture the rx would not change unless there would be further seizures clinically and I would not offer AED rx at this time Dr Katz and I discussed the case and he is desirous of adding heparin here in case there was a PE as the initial event producing the hypoxia and secondary seizure activity I have no issues with this as the mri does not show and clear bleeding and the patient has such poor renal function that ct angiography cannot be performed to confirm or deny the diagnosis of a PE MTDD
--- NOTE | 2017-03-25 15:06 | Procedure Note ---
Procedure Note Date of Service Mar 25, 2017. Procedure Note I reviewed the radiology MRI read as well as discussed it with the radiologist The clinical picture does not fit one of PRES, the patient has not been profoundly hypertensive. In discussing with differentials reperfusion injury can present like this. The pathology is located in the posterior circulation, therefore I will not be ordering carotid duplex at this time if his creatinine improves he may consider CTA in the future. Of note his troponins are up trending and given the recent respiratory compromise pulmonary embolism is in the differential. Given that there is no obvious infarct on the MRI, and the patient's significant respiratory compromise, hypoxia, elevated troponins and he is most prudent to place the patient on a heparin infusion, obtain a echocardiogram. His elevated creatinine has precluded us from obtaining a CT scan at this time and in an effort to preserve renal function we will empirically treat.
--- NOTE | 2017-03-25 15:25 | Critical Care Progress Note ---
Critical Care Progress Note Date of Service Mar 25, 2017. Critical Care Progress Note I reviewed the radiology MRI read as well as discussed it with the radiologist The clinical picture does not fit one of PRES, the patient has not been profoundly hypertensive. In discussing with differentials reperfusion injury can present like this. The pathology is located in the posterior circulation, therefore I will not be ordering carotid duplex at this time if his creatinine improves he may consider CTA in the future. Of note his troponins are up trending and given the recent respiratory compromise pulmonary embolism is in the differential. Given that there is no obvious infarct on the MRI, and the patient's significant respiratory compromise, hypoxia, elevated troponins and he is most prudent to place the patient on a heparin infusion, obtain a echocardiogram. His elevated creatinine has precluded us from obtaining a CT scan at this time and in an effort to preserve renal function we will empirically treat. I discussed this case with Dr. Mahoney of neurology with regards to anticoagulation and we both agree it is safe to proceed given there is no ischemia seen on MRI I have personally spent 20 minutes of critical care time in the direct management of this patient. This is a life/limb threatening event. This includes time spent evaluating patient, direct bedside care, chart review, placing orders, interpretation of diagnostic studies, discussion with consultants, patient, and family members, as well as other required patient management activities. This time is exclusive of all separately billable procedures, and teaching time and separate from and in addition to any other critical care service time.
[2017-03-25] MEDS ORDERED: HEPARIN 25,000 UNIT/500ML D5W 500 ML IV PRN (15:30)
--- NOTE | 2017-03-25 16:01 | DIAGNOSTIC IMAGING REPORT ---
BILATERAL LOWER EXTREMITY VENOUS DOPPLER HISTORY: Acute bilateral lower extremity swelling with concern for deep venous thrombosis r/o vte COMPARISON STUDY: None. FINDINGS: There is normal compressibility, flow, and augmentation within the bilateral lower extremity deep venous systems. Note however that the calf veins are difficult to visualize secondary to patient cooperation. IMPRESSION: No sonographic evidence of deep venous thrombosis within the right or left lower extremity. Electronically signed by: Ariel Ramirez M.D. 03/25/2017 4:00 PM Dictated Date/Time: 03/25/2017 3:58 PM
[2017-03-25 16:28] LABS: PTT PATIENT 28.8 SECONDS (21.0-31.0)
[2017-03-25] MEDS: FENTANYL CITRATE INJ 50 MCG/1 ML 2 ML VIAL IV PRN (21:04)
[2017-03-25] MEDS: TAMSULOSIN HCL 0.4 MG CAP PO SCH (21:04)
[2017-03-25] MEDS: MIDAZOLAM HCL 1 MG/ML 2ML VIAL IV PRN (22:30)
[2017-03-25 22:44] LABS: PTT PATIENT 87.5 SECONDS (21.0-31.0)
[2017-03-26] VITALS (12 sets, daily range): BP systolic 129–149; BP diastolic 87–99; PULSE 114–128; TEMP 37–38.6; O2SAT 92–98
[2017-03-26] MEDS: MIDAZOLAM HCL 1 MG/ML 2ML VIAL IV PRN (01:52)
[2017-03-26] MEDS: NORMOSOL R 1,000 ML IV SCH ×3 (04:21→11:55)
[2017-03-26] MEDS: ACETAMINOPHEN 325 MG TAB PO PRN ×2 (04:39→08:50)
[2017-03-26 05:55] LABS: HEMOGLOBIN 9.7 g/dL (14.0-18.0); MEAN CELL VOLUME 97.1 fL (80-100); MEAN CORPUSCULAR HEMOGLOBIN 31.4 pg (25-34); MEAN CORPUSCULAR HGB CONC 32.3 g/dl (32-36); MEAN PLATELET VOLUME 11.7 fL (7.4-10.4); PLATELET COUNT 107 K/uL (130-400); RED CELL DISTRIBUTION WIDTH CV 14.6 % (11.5-14.5); RED CELL DISTRIBUTION WIDTH SD 51.9 fL (36.4-46.3); WHITE BLOOD COUNT 10.09 K/uL (4.8-10.8)
[2017-03-26 06:15] LABS: PTT PATIENT 109.8 SECONDS (21.0-31.0)
[2017-03-26 06:33] LABS: CREATININE 1.32 mg/dl (0.60-1.40); PHOSPHORUS 2.9 mg/dl (2.5-4.9)
--- NOTE | 2017-03-26 07:01 | DIAGNOSTIC IMAGING REPORT ---
CHEST ONE VIEW PORTABLE CLINICAL HISTORY: 71 years-old Male presenting with Intubated. TECHNIQUE: Portable upright AP view of the chest was obtained. COMPARISON: 03/25/2017. FINDINGS: Endotracheal tube terminates in the mid thoracic trachea over 4 cm from the nat[place]. Atherosclerosis of the aortic arch. Cardiac silhouette normal in size allowing for AP technique, unchanged. Interval increase in bilateral hazy opacities with a central and basilar predominance. Pulmonary vascular prominence also noted as well as bronchial wall thickening. Radiolucency in the right apex correlates to a prominent apical bleb best evaluated on CT from 03/19/2017 in the setting of advanced emphysema. No large pneumothorax evident. Small bilateral pleural effusions suspected. Degenerative changes of the thoracic spine. Upper abdomen normal. IMPRESSION: 1. Interval worsening of hazy central and basilar predominant opacities with bronchial wall thickening and pulmonary vascular prominence most characteristic of pulmonary edema. Infection cannot be excluded. 2. Small bilateral pleural effusions. 3. Endotracheal tube appropriately positioned over 4 cm from the natalia. Electronically signed by: Hamzah Baird M.D. 03/26/2017 7:00 AM Dictated Date/Time: 03/26/2017 6:56 AM
--- NOTE | 2017-03-26 07:34 | Progress Note ---
Medicine Progress Note Date & Time of Visit: Mar 26, 2017 at 06:30 . Subjective Remains intubated on vent. Nursing reports fluctuating neuro status during the night. Makes eye contact and follows instructions intermittently. No apparent seizures. No other problems reported by staff. . Objective Last 8 Hrs Date Time Temp Pulse Resp B/P (MAP) Pulse Ox O2 Delivery O2 Flow Rate FiO2 03/26/17 05:20 40 03/26/17 04:30 38.2 03/26/17 04:00 35 03/26/17 04:00 Mechanical Ventilator 03/26/17 04:00 128 13 135/89 (104) 98 40 03/26/17 02:00 121 13 129/89 (102) 98 Mechanical Ventilator 40 03/26/17 01:55 40 03/26/17 00:01 128 15 149/99 (116) 98 Mechanical Ventilator 40 03/25/17 23:59 Mechanical Ventilator 03/25/17 23:59 36.8 128 12 144/99 (114) 97 CPAP 03/25/17 23:59 35 Physical Exam: General- intubated on vent, no acute distress Eyes- anicteric ENT- oral ETT, oral GT Neck- + JVD; trachea midline Lungs- equal breath sounds; moderate wheezing, > on left, scattered rhonchi Heart- distant heart sounds, RRR, tachycardic, no gallop appreciated Abdomen- slightly distended, quiet BS, soft, nontender Extremities- no pretibial edema or calf tenderness; SCD's applied Skin- warm and dry Neuro- eyes open, makes eye contact, able to track to the right past midline; pupils reactive; not following commands during my assessment; Babinski's equivocal bilaterally . Laboratory Results: Last 24 Hours Test 03/25/17 10:05 03/25/17 13:29 03/25/17 16:07 03/25/17 21:59 Blood Gas Sample Site L Radial Bedside Blood Gas pH (LAB) 7.14 Bedside Blood Gas pCO2 (LAB) 96 mmHg Bedside Blood Gas pO2 (LAB) 47 mmHg Bedside Blood Gas HCO3 (LAB) 33 meq/L Bedside Blood Gas Total CO2 36 mEq/l Bedside Blood Gas Base Excess (LAB) 4.0 meq/L Bedside Blood Gas O2 Saturation 68.0 % Howard Test Pass Oxygen Delivery Device NonRb Mask Bedside FiO2 100 % Troponin I 0.596 ng/ml 1.410 ng/ml Prothrombin Time 10.3 SECONDS Prothromb Time International Ratio 1.0 Activated Partial Thromboplast Time 28.8 SECONDS 87.5 SECONDS Partial Thromboplastin Ratio 1.1 3.4 Test 03/26/17 05:34 03/26/17 05:47 Blood Gas Sample Site L Radial Bedside Blood Gas pH (LAB) 7.36 Bedside Blood Gas pCO2 (LAB) 57 mmHg Bedside Blood Gas pO2 (LAB) 129 mmHg Bedside Blood Gas HCO3 (LAB) 32 meq/L Bedside Blood Gas Total CO2 34 mEq/l Bedside Blood Gas Base Excess (LAB) 7.0 meq/L Bedside Blood Gas O2 Saturation 99.0 % Howard Test Pass Oxygen Delivery Device Ventilator Bedside Oxygen Rate (breaths/min) 18 Blood Gas Minute Ventilation 8.1 Bedside FiO2 40 % Blood Gas Tidal Volume 550 Blood Gas PEEP 5 White Blood Count 10.09 K/uL Red Blood Count 3.09 M/uL Hemoglobin 9.7 g/dL Hematocrit 30.0 % Mean Corpuscular Volume 97.1 fL Mean Corpuscular Hemoglobin 31.4 pg Mean Corpuscular Hemoglobin Concent 32.3 g/dl RDW Standard Deviation 51.9 fL RDW Coefficient of Variation 14.6 % Platelet Count 107 K/uL Mean Platelet Volume 11.7 fL Activated Partial Thromboplast Time 109.8 SECONDS Partial Thromboplastin Ratio 4.2 Sodium Level 139 mmol/L Potassium Level 4.0 mmol/L Chloride Level 100 mmol/L Carbon Dioxide Level 31 mmol/L Anion Gap 7.0 mmol/L Blood Urea Nitrogen 24 mg/dl Creatinine 1.32 mg/dl Est Creatinine Clear Calc Drug Dose 42.7 ml/min Estimated GFR () 61.6 Estimated GFR (Non- 53.1 BUN/Creatinine Ratio 18.0 Random Glucose 101 mg/dl Calcium Level 8.0 mg/dl Phosphorus Level 2.9 mg/dl Magnesium Level 2.3 mg/dl Date/Time Source Procedure Growth Status 03/25/17 09:20 Nasal MRSA DNA Surveillance Screen - Final Specimen Negative for MRSA by DNA Probe Complete Assessment & Plan CARDIOVASCULAR Sinus tachycardia. BP's elevated. Trop 0.308 --> 1.41. EKG 03/25- ST, no acute ST changes. -E-c-h-o- -1-2--/--1-0---- -n-o- -s-v-t-e-j-r-t-a-l- -w-a-l-l- -e-z-q-i-o-n- -d-s-q-g-y-u-k-f-x-t-i-e-s--,- -L-V-E-F- -5-5-----6-0--%--,- -n-t-v-m-a-l- -R-V- -a-o-i-r-c-e-i-o-n-s- -a-n-d- -z-f-q-t-o-l-i-c- -l-z-s-c-t-i-o-n-.- -?- -c-w-w-----S-T-E-M-I- -v-s- -c-h-h-w-x-g-c-i-f-i-c- -l-w-g-h-a-w-i-o-n- -d-u-e- -t-o- -o-t-h-e-r- -b-v-u-b-z-f-s-e-s-.- Echo 03/25 demonstrated moderate global hypokinesis with LVEF 30-35%; normal RV dimensions and systolic function. [error JEREMY corrected 03/26/17@12:59] PULMONARY Severe O2 dependent COPD. Admitted with exacerbation of COPD attributed to bronchiectasis. Pulmonary status was improving with antibiotics, steroids, nebs. Worsening oxygenation morning of 03/25, ? mechanism. Intubated and placed on mechanical ventilation. Chest x-ray appeared to be stable. Venous duplex lower extremities neg for DVT. Echo- no apparent RV strain. CTA not done due to elevated creatinine. Management per [facility]. GI History of GERD. Esophageal dysmotility noted on swallowing evaluation. Barium esophagram was pending (waiting for pulmonary status to improve). CT 03/23 demonstrated cholelithiasis with thickening of gallbladder wall. Clinically, did not appear to have cholecystitis. LFT's 03/25 normal. Now receiving famotidine for GI prophylaxis. RENAL / LYTES Baseline creatinine ~ 1.0 in 2016. Serum creatine at time of admission 1.72. Creatinine today = 1.32. Maintain volume status. Avoid potential nephrotoxins when able. 5 mm obstructing calculus distal right ureter noted on CT 03/23. Conservative management at this time recommended by Urology. Continue tamsulosin. ID Was receiving IV ampicillin / sulbactam for bronchiectasis. Was receiving IV fluconazole for Treva UTI. Cholelithiasis without clinical cholecystitis as noted above. Low grade temp evening of admission, afebrile since then. WBC 16,970 yesterday, ? demargination from physiologic stress. WBC today = 10,090. Remains on IV ampicillin / sulbactam. HEME Pancytopenic. Hematology consulted. Acetazolamide discontinued. Counts stable. May need further evaluation in the future (e.g., bone marrow). NEURO Possible seizure morning of 03/25. ? RUE weakness noted. Not candidate for TPA due to thrombocytopenia. Head CT negative for bleed or apparent infarct. MRI: IMPRESSION: 1. Cortically based areas of increased T2/FLAIR signal in the bilateral posterior parietal and occipital lobes demonstrate slightly increased signal on the diffusion-weighted images within this distribution, likely secondary to T2 shine through without definite acute infarction identified. These findings appear most consistent with acute hypertensive encephalopathy (posterior reversible encephalopathy syndrome or PRES), however additional differential considerations would include cerebral edema as a consequence of hypoglycemia or thrombotic microangiopathy among other etiologies. 2. Mild atrophy with probable mild chronic microvascular ischemic changes. 3. Unremarkable appearance of the bilateral mesial temporal lobes. Electronically signed by: Ariel Ramirez M.D. 03/25/2017 2:12 PM EEG done- no apparent epileptogenic foci. Neuro consulted. Anticonvulsants not recommended at this time. Repeat EEG ordered. Neuro status improved this morning. VTE PROPHYLAXIS Had been utilizing SCD's in light of thrombocytopenia. Now on empiric IV heparin for possible embolic event. DISPOSITION To be determined. Critically ill at this time. Arrangements were underway for transfer to [facility] for skilled care. Family Medicine follow-up with Dr. Ashley. Son given update yesterday afternoon. . Consultants: Pulmonary Medicine- Dr. Cabral Hematology- Dr. Lorenzo Kumar Urology- CAMERON Crain and Dr. Stark. [facility] . Procedures: CT chest videofluoroscopic swallowing evaluation CT abdomen and pelvis CT head EEG IV fluids IV meds endotracheal intubation mechanical ventilation . Current Inpatient Medications: Current Inpatient Medications Medications (Trade) Dose Ordered Sig/Rosemary Route Start Time Stop Time Status Last Admin Dose Admin Acetaminophen (Tylenol Tab) 650 mg Q4H PRN PO 03/18/17 20:30 04/17/17 20:29 03/26/17 04:39 650 MG Hydromorphone HCl (Dilaudid Inj) 0.5 mg Q3H PRN IV 03/18/17 20:30 04/01/17 20:29 Ampicillin Sodium/ Sulbactam Sodium (Consult) 1 ea UD PRN N/A 03/18/17 20:45 04/17/17 20:44 Triamcinolone Acetonide (Kenalog 0.1% Cream) 1 appln BID EXT 03/18/17 21:00 04/17/17 20:59 03/25/17 21:51 1 APPLN Miscellaneous Information (Order Awaiting Action) 1 ea QS N/A 03/19/17 00:00 04/18/17 00:00 Fluticasone Propionate (Flonase Nasal [place]) 1 sprays DAILY NA 03/20/17 09:00 04/19/17 08:59 Future Hold 03/24/17 07:44 1 SPRAYS Budesonide/ Formoterol Fumarate (Symbicort 160/ 4.5 Inh) 2 puffs BID INH 03/20/17 09:00 04/19/17 08:59 Future Hold 03/24/17 20:52 2 PUFFS Levalbuterol (Xopenex 1.25MG/ 0.5ML Neb) 1.25 mg Q6H PRN INH 03/21/17 15:00 04/17/17 20:59 Albuterol/ Ipratropium (Combivent Respimat Inh) 1 puffs QID INH 03/21/17 10:15 04/19/17 08:44 03/24/17 20:52 1 PUFFS Sodium Chloride ([place] Nasal [place]) 1 sprays PRN PRN NA 03/22/17 02:15 04/21/17 02:14 Future Hold Enteral Nutritional Formula (Boost) 1 can BIDM PO 03/22/17 17:00 04/21/17 16:59 Future Hold 03/24/17 16:15 1 CAN Tamsulosin HCl (Flomax Cap) 0.4 mg HS PO 03/23/17 21:00 04/22/17 20:59 03/25/17 21:04 0.4 MG Fluconazole (Diflucan Tab) 100 mg QAM PO 03/24/17 09:00 04/01/17 09:01 03/24/17 07:45 100 MG Guaifenesin (Organidin Nr Tab) 200 mg Q4 PRN PO 03/25/17 00:00 04/24/17 00:00 Future Hold 03/24/17 22:15 200 MG Fentanyl Citrate (Fentanyl Inj) 50 mcg Q1H PRN IV 03/25/17 05:15 04/08/17 05:14 03/25/17 21:04 50 MCG Midazolam HCl (Versed Inj) 2 mg Q2H PRN IV 03/25/17 05:15 04/24/17 05:14 03/26/17 01:52 2 MG Parenteral Electrolyte Solution 1,000 ml @ 100 mls/hr Q10H IV 03/25/17 06:00 04/24/17 05:59 03/26/17 04:21 100 MLS/HR Aspirin/Aluminum/ Magnesium/Ca Carb (Ascriptin Tab) 325 mg DAILY PO 03/26/17 09:00 04/25/17 08:59 Ampicillin Sodium/ Sulbactam Sodium 3000 mg/Sodium Chloride 108 ml @ 200 mls/hr Q12H IV 03/25/17 22:00 03/28/17 21:59 03/25/17 21:39 200 MLS/HR Heparin Sodium/ Dextrose 500 ml @ 18 mls/hr Q24H PRN IV 03/25/17 15:30 04/24/17 15:29 03/25/17 16:10 22 MLS/HR Pantoprazole Sodium 40 mg/ Syringe 10 ml @ 5 mls/min DAILY@11 IV 03/26/17 11:00 04/25/17 10:59
--- NOTE | 2017-03-26 07:50 | ELECTROENCEPHALOGRAPH REPORT ---
REQUESTING PHYSICIAN: Deidre Cha MD, in the ICU CLINICAL DIAGNOSIS: Acute hypoxic hypercarbic respiratory failure with seizure-like activity and now right hemiparesis and preferential gaze to the left. Question underlying seizure disorder. ELECTROENCEPHALOGRAM DIAGNOSIS: Essentially normal during apparent wakefulness. DESCRIPTION OF TRACING: This EEG was done in the ICU and was of good technical quality allowing for some initial muscle movement artifacts. The tracing is colored by the presence of a lot of low voltage fast activity, possibly reflecting the use of benzodiazepines sedation early on and a high cut filter had to be used to interpret the study. Video analysis of patient movement and behavior was also obtained and does confirm the presence of preferential eye deviation to the left, but only the upper portion of the patient's torso and head were analyzed and right upper extremity movements were not evaluated. No overt clinical seizure like activity was seen on the basis of the video analysis and the EEG itself once the infiltration process was complete, did show evidence for what appears to be a low voltage background alpha rhythm of about 10 Hz of maximum frequency and of 15 microvolts in maximum amplitude. This is maximum in posterior head regions and bilaterally symmetrical. Polymorphic very low voltage theta activity is also seen centrally and beta activity is the predominant rhythm in the bifrontal and in fact over most of the EEG regions and it too is symmetrical. Photic stimulation provokes no significant photomyogenic or photoparoxysmal components and at no time during the tracing is there evidence for ongoing potentially epileptogenic activity in the form of polyspike or spike wave bursts, focal sharp waves or focal spikes. There is also no evidence for significant accentuated slow wave activity over the left hemisphere. INTERPRETATION: This EEG is essentially normal, allowing for the presence of a lot of probable benzodiazepine induced low voltage fast activity. There is no evidence for clearcut focal encephalopathy despite preferential gaze deviation to the left and no evidence for potentially epileptogenic activity is seen. Normal EEG would not exclude the presence of an acute vascular event involving in this case the left hemisphere and imaging studies are going to be required.
[2017-03-26] MEDS: FENTANYL CITRATE INJ 50 MCG/1 ML 2 ML VIAL IV PRN ×4 (08:44→17:34)
[2017-03-26] MEDS: AMPICILLIN/SULBACTAM SOD INJ 3,000 MG in SODIUM CHLORIDE 0.9% 100ML 100 ML IV SCH (08:49)
[2017-03-26] MEDS: TRIAMCINOLONE ACET 0.1% CR 15 GM TUBE EXT SCH ×2 (08:49→21:03)
[2017-03-26] MEDS: PANTOprazole INJ 40 MG in SYRINGE 0 ML IV SCH (08:49)
[2017-03-26] MEDS: FLUCONAZOLE 100 MG TAB PO SCH (08:50)
[2017-03-26] MEDS: ASPIRIN/ALUM/MAGNES/CAL CARB 325 MG TAB PO SCH (09:00)
[2017-03-26] MEDS: METHYLPREDNISOLONE IV 60 MG in SYRINGE 0 ML IV SCH ×2 (09:06→15:55)
--- NOTE | 2017-03-26 09:33 | Progress Note ---
Subjective Date of Service: Mar 26, 2017. Subjective Pt evaluation today including: chart review, lab review Voiding: villa catheter in place (patent, draining light downing colored urine) Pt intubated this morning. Resting soundly. Villa noted to be draining light downing colored urine. UC&S grew Treva. Pt receiving Diflucan. Noted to be febrile this morning with a temperature of 38.2C. CT last week showing a 5mm distal right ureteral stone. Problem List Medical Problems: (1) COPD exacerbation Status: Acute (2) Hypoxia Status: Acute (3) Pancytopenia Status: Acute (4) Pneumonia Status: Acute Review of Systems Pt intubated and resting. Not disturbed. Objective Vital Signs Date Time Temp Pulse Resp B/P (MAP) Pulse Ox O2 Delivery O2 Flow Rate FiO2 03/26/17 05:20 40 03/26/17 04:30 38.2 03/26/17 04:00 35 03/26/17 04:00 Mechanical Ventilator 03/26/17 04:00 128 13 135/89 (104) 98 40 03/26/17 02:00 121 13 129/89 (102) 98 Mechanical Ventilator 40 03/26/17 01:55 40 03/26/17 00:01 128 15 149/99 (116) 98 Mechanical Ventilator 40 03/25/17 23:59 Mechanical Ventilator 03/25/17 23:59 36.8 128 12 144/99 (114) 97 CPAP 03/25/17 23:59 35 03/25/17 23:06 40 03/25/17 23:01 30 03/25/17 22:00 120 13 143/96 (112) 93 Mechanical Ventilator 30 03/25/17 20:01 35 03/25/17 20:00 35 03/25/17 20:00 37.2 121 15 158/100 (119) Mechanical Ventilator 35 03/25/17 20:00 Mechanical Ventilator 03/25/17 18:00 126 12 165/102 (123) 98 Mechanical Ventilator 35 03/25/17 16:37 37.3 115 12 157/95 (115) 98 Mechanical Ventilator 35 03/25/17 16:18 35 03/25/17 16:00 98 Mechanical Ventilator 35 03/25/17 16:00 35 03/25/17 14:54 35 03/25/17 14:00 114 12 162/96 (118) 98 Mechanical Ventilator 35 03/25/17 12:10 25 03/25/17 12:00 Mechanical Ventilator 35 03/25/17 12:00 35 03/25/17 10:20 25 03/25/17 10:00 115 12 164/98 (120) 100 Mechanical Ventilator 30 Physical Exam General Appearance: no apparent distress Neck: no JVD Respiratory/Chest: no respiratory distress, no accessory muscle use Cardiovascular: no JVD Extremities: normal inspection Neurologic/Psychiatric: alert, normal mood/affect, oriented x 3 Skin: normal color Laboratory Results Last 24 Hours Test 03/25/17 10:05 03/25/17 13:29 03/25/17 16:07 03/25/17 21:59 Blood Gas Sample Site L Radial Bedside Blood Gas pH (LAB) 7.14 Bedside Blood Gas pCO2 (LAB) 96 mmHg Bedside Blood Gas pO2 (LAB) 47 mmHg Bedside Blood Gas HCO3 (LAB) 33 meq/L Bedside Blood Gas Total CO2 36 mEq/l Bedside Blood Gas Base Excess (LAB) 4.0 meq/L Bedside Blood Gas O2 Saturation 68.0 % Howard Test Pass Oxygen Delivery Device NonRb Mask Bedside FiO2 100 % Troponin I 0.596 ng/ml 1.410 ng/ml Prothrombin Time 10.3 SECONDS Prothromb Time International Ratio 1.0 Activated Partial Thromboplast Time 28.8 SECONDS 87.5 SECONDS Partial Thromboplastin Ratio 1.1 3.4 Test 03/26/17 05:34 03/26/17 05:47 03/26/17 08:25 Blood Gas Sample Site L Radial Bedside Blood Gas pH (LAB) 7.36 Bedside Blood Gas pCO2 (LAB) 57 mmHg Bedside Blood Gas pO2 (LAB) 129 mmHg Bedside Blood Gas HCO3 (LAB) 32 meq/L Bedside Blood Gas Total CO2 34 mEq/l Bedside Blood Gas Base Excess (LAB) 7.0 meq/L Bedside Blood Gas O2 Saturation 99.0 % Howard Test Pass Oxygen Delivery Device Ventilator Bedside Oxygen Rate (breaths/min) 18 Blood Gas Minute Ventilation 8.1 Bedside FiO2 40 % Blood Gas Tidal Volume 550 Blood Gas PEEP 5 White Blood Count 10.09 K/uL Red Blood Count 3.09 M/uL Hemoglobin 9.7 g/dL Hematocrit 30.0 % Mean Corpuscular Volume 97.1 fL Mean Corpuscular Hemoglobin 31.4 pg Mean Corpuscular Hemoglobin Concent 32.3 g/dl RDW Standard Deviation 51.9 fL RDW Coefficient of Variation 14.6 % Platelet Count 107 K/uL Mean Platelet Volume 11.7 fL Activated Partial Thromboplast Time 109.8 SECONDS Partial Thromboplastin Ratio 4.2 Sodium Level 139 mmol/L Potassium Level 4.0 mmol/L Chloride Level 100 mmol/L Carbon Dioxide Level 31 mmol/L Anion Gap 7.0 mmol/L Blood Urea Nitrogen 24 mg/dl Creatinine 1.32 mg/dl Est Creatinine Clear Calc Drug Dose 42.7 ml/min Estimated GFR () 61.6 Estimated GFR (Non- 53.1 BUN/Creatinine Ratio 18.0 Random Glucose 101 mg/dl Calcium Level 8.0 mg/dl Phosphorus Level 2.9 mg/dl Magnesium Level 2.3 mg/dl Bedside Glucose 102 mg/dl Assessment and Plan A/P: Gross hematuria, Right ureteral stone, fever, UTI Uncertain whether the pt's fever is secondary to his respiratory status vs UTI and stone. Pt not currently optimized for stent placement from a respiratory perspective. Will observe for now. If the pt were to decompensate or pulmonary source for fever r/o, would need to consider urgent stent placement. Continue Diflucan for 7 days for management of Treva UTI. Case discussed with Raj Alcantara PA-C this morning. Will continue to follow along with primary service.
--- NOTE | 2017-03-26 09:40 | ECHOCARDIOGRAM REPORT ---
*NOTICE TO RECEIVING LIBERTARIAN AGENCY This information is strictly Confidential and protected under [place] law. [place] law prohibits you from making any further disclosure of this information unless further disclosure is expressly permitted by the written consent of the person to whom it pertains or is authorized by law. A general authorization for the release of medical or other information is not sufficient for this purpose. Hospital accepts no responsibility if the information is made available to any other person, INCLUDING THE PATIENT. Interpretation Summary * Name: KALYN STEPHEN Study Date: 03/25/2017 03:51 PM BP: 162/96 mmHg * Patient Location: [facility] HR: 114 * : 1945 (M/d/yyyy) Gender: Male Height: 69 in * Age: 71 yrs Ethnicity: CA Weight: 133 lb * Performed By: Meg Storm RDCS * * Reason For Study: LIMITED RV STRAIN? * BSA: 1.7 m2 * -- Conclusions -- * The patient was tachycardic during the examination * The left ventricle is normal in size. * There is mild concentric left ventricular hypertrophy. * There is moderate global hypokinesis of the left ventricle. * Ejection Fraction = 30-35%. * There is mild to moderate mitral annular calcification. * There is trace mitral regurgitation. * There is mild tricuspid regurgitation. * Right ventricular systolic pressure is elevated at 30-40mmHg. * The right ventricle is normal in size and function. Procedure Details * LIMITED ECHO, RV STRAIN? * A complete two-dimensional transthoracic echocardiogram was performed (2D, M-mode, Doppler and color flow Doppler). Left Ventricle * The left ventricle is normal in size. * There is mild concentric left ventricular hypertrophy. * Ejection Fraction = 30-35%. * There is moderate global hypokinesis of the left ventricle. Right Ventricle * The right ventricle is normal in size and function. Atria * The left atrial size is normal. * Right atrial size is normal. * No ASD detected; PFO is not assessed. Mitral Valve * There is mild to moderate mitral annular calcification. * There is no mitral valve stenosis. * There is trace mitral regurgitation. Tricuspid Valve * The tricuspid valve anatomy is normal. * There is no tricuspid stenosis. * There is mild tricuspid regurgitation. * Right ventricular systolic pressure is elevated at 30-40mmHg. Aortic Valve * The aortic valve is trileaflet. * No hemodynamically significant valvular aortic stenosis. * No aortic regurgitation is present. Pulmonic Valve * The pulmonic valve is not well visualized. Great Vessels * The aortic root is normal size. Pericardium/Pleural * There is no pericardial effusion. Great Vessels * Normal inferior vena cava diameter and respiratory variation suggests normal central venous pressure. MMode 2D Measurements and Calculations IVSd 1.2 cm IVSs 1.6 cm LVIDd 5.2 cm LVIDs 4.1 cm LVPWd 1.5 cm LVPWs 2.0 cm IVS/LVPW 0.79 FS 21.1 % EDV(Teich) 130.3 ml ESV(Teich) 74.8 ml EF(Teich) 42.6 % EDV(cubed) 141.7 ml ESV(cubed) 69.6 ml EF(cubed) 50.9 % % IVS thick 35.2 % % LVPW thick 35.5 % LV mass(C)d 284.6 grams LV mass(C)dI 163.9 grams/m\S\2 LV mass(C)s 319.3 grams LV mass(C)sI 183.8 grams/m\S\2 SV(Teich) 55.5 ml SI(Teich) 31.9 ml/m\S\2 SV(cubed) 72.1 ml SI(cubed) 41.5 ml/m\S\2 LVAd ap4 25.7 cm\S\2 LVLd ap4 6.9 cm EDV(MOD-sp4) 81.4 ml EDV(sp4-el) 82.1 ml LVAs ap4 19.0 cm\S\2 LVLs ap4 6.3 cm ESV(MOD-sp4) 47.8 ml ESV(sp4-el) 48.9 ml EF(MOD-sp4) 41.3 % EF(sp4-el) 40.5 % SV(MOD-sp4) 33.7 ml SI(MOD-sp4) 19.4 ml/m\S\2 SV(sp4-el) 33.2 ml SI(sp4-el) 19.1 ml/m\S\2 Doppler Measurements and Calculations TR max cuauhtemoc 287.3 cm/sec
[2017-03-26] MEDS: IPRATROPIUM BROMIDE/ALBUTEROL respimat INH INH SCH (11:23)
[2017-03-26] MEDS: ALBUTEROL HFA 8 GM INHALER INH SCH ×2 (11:31→20:30)
[2017-03-26] MEDS: IPRATROPIUM BROMIDE HFA INHALER INH SCH ×2 (11:31→20:30)
[2017-03-26 14:13] LABS: PTT PATIENT 80.9 SECONDS (21.0-31.0)
[2017-03-26] MEDS ORDERED: AMPICILLIN/SULBACTAM SOD INJ 3,000 MG in SODIUM CHLORIDE 0.9% 100ML 100 ML IV SCH (15:00)
[2017-03-26] MEDS ORDERED: NURSING VERBAL MED ORDER ONE ×3 (15:30→16:30)
--- NOTE | 2017-03-26 16:27 | PROGRESS NOTE ---
DATE: 03/26/2017 SUBJECTIVE: Meek is more awake today. He is obeying a few commands. There is longer the head and eye deviation to the left and the degree of right-sided weakness is certainly minimal to mild today. He will squeeze my hands both sides to commands, breaks down on eye movement to commands, will move his lower extremities and the right hemiparesis that was present yesterday seems to be resolving nicely. At this point, the EEG shows only some mild generalized slow wave activity. The prior study was hampered by the presence of a lot of low voltage fast activity and we had to filter it pretty heavily interpreted and that was called essentially normal, but in retrospect it was probably mildly slow, just a low voltage. There are certainly no lateralizing features, no potentially epileptogenic activity and I would not treat him with empiric anticonvulsants at this point. My suspicion is all he had an acute hypoxic ischemic event with a secondary seizure rather than the other way around. If the degree of hemiparesis here; however, persists, we may do another MRI at some point in the future as a certain percentage of acute vascular events can be missed by MRI. The issue is academic as his skeletal overall pretty precarious and I am not sure we would change anything on what we are doing now. He is on heparin for the presumptive diagnosis of a pulmonary embolism and the issue of posterior reversible encephalopathy syndrome has been addressed and I think is not on the table. I think what was seen in hemispheres was probably due to reperfusion after hypoxic ischemic event and frankly the findings were that impressive to me anyway. I will check back with him tomorrow.
--- NOTE | 2017-03-26 17:46 | Critical Care Progress Note ---
Critical Care Progress Note Date of Service Mar 26, 2017. Attending Dr. Lares Subjective awake, following commands, failing cpap trial again. Objective ROS is not obtainable. HR tachycardia. S1S2 RRR. distant BS bilaterally. abdomen is benign. multiple sc hematomas. neuro non focal. awake and following commands properly. Current SOFA Score SOFA Score Response (Comments) Value PaO2/FiO2 (mmHg) < 400 1 SaO2 / FIO2 221 - 301 1 Platelets (x10) > 150 0 Bilirubin (mg/dL) < 1.2 0 [place] Coma Score 10 - 12 2 Level of Hypotension No Hypotension 0 Creatinine (mg/dL) < 1.2 0 Total 4 Assessment & Plan 1- acute resp failure. 2- COPD with exacerbation, hypercapneic, likely the cause of his altered MS. 3- RLL Pna. 4- possible resp failure related seizure, no evidence so far. appreciate Dr. Mahoney input. Plan: 1- failed cpap trial. 2- start high dose steroids. 3- continue prn sedation. 4- continue vent support. SBT daily. 5- start BD on scheduled basis. 6- dc heparin drip. the trop is likely type II NSTEMI, ST changes with HR 120, rate related. 7- heparin SC for DVT prophylaxis. 8- NPO for now. 9- areas with hematomas noted, related to above. 10- IVF. 11- discussed with the son and the family at the bed side, apparently, the pt's wishes not to persue life support, the son will discuss the issue with the rest of the family and come up with a code status decission. 12- in review of his chest CT, he has severe bullous disease, which will preclude him from been extubated soon, trach discussed with the son and he will talk to the family as well. discussed with the staff in rounds in details. CCT 45 min. Consults & Procedures Consultants: neurology. Procedures: none today. Data Medications: Current Inpatient Medications Medications (Trade) Dose Ordered Sig/Rosemary Route Start Time Stop Time Status Last Admin Dose Admin Acetaminophen (Tylenol Tab) 650 mg Q4H PRN PO 03/18/17 20:30 04/17/17 20:29 03/26/17 08:50 650 MG Hydromorphone HCl (Dilaudid Inj) 0.5 mg Q3H PRN IV 03/18/17 20:30 04/01/17 20:29 Ampicillin Sodium/ Sulbactam Sodium (Consult) 1 ea UD PRN N/A 03/18/17 20:45 04/17/17 20:44 Triamcinolone Acetonide (Kenalog 0.1% Cream) 1 appln BID EXT 03/18/17 21:00 04/17/17 20:59 03/26/17 08:49 1 APPLN Miscellaneous Information (Order Awaiting Action) 1 ea QS N/A 03/19/17 00:00 04/18/17 00:00 Fluticasone Propionate (Flonase Nasal [place]) 1 sprays DAILY NA 03/20/17 09:00 04/19/17 08:59 Future Hold 03/24/17 07:44 1 SPRAYS Budesonide/ Formoterol Fumarate (Symbicort 160/ 4.5 Inh) 2 puffs BID INH 03/20/17 09:00 04/19/17 08:59 Future Hold 03/24/17 20:52 2 PUFFS Levalbuterol (Xopenex 1.25MG/ 0.5ML Neb) 1.25 mg Q6H PRN INH 03/21/17 15:00 04/17/17 20:59 Albuterol/ Ipratropium (Combivent Respimat Inh) 1 puffs QID INH 03/21/17 10:15 04/19/17 08:44 Future Hold 03/24/17 20:52 1 PUFFS Sodium Chloride ([place] Nasal [place]) 1 sprays PRN PRN NA 03/22/17 02:15 04/21/17 02:14 Future Hold Enteral Nutritional Formula (Boost) 1 can BIDM PO 03/22/17 17:00 04/21/17 16:59 Future Hold 03/24/17 16:15 1 CAN Tamsulosin HCl (Flomax Cap) 0.4 mg HS PO 03/23/17 21:00 04/22/17 20:59 03/25/17 21:04 0.4 MG Fluconazole (Diflucan Tab) 100 mg QAM PO 03/24/17 09:00 04/01/17 09:01 03/26/17 08:50 100 MG Guaifenesin (Organidin Nr Tab) 200 mg Q4 PRN PO 03/25/17 00:00 04/24/17 00:00 Future Hold 03/24/17 22:15 200 MG Fentanyl Citrate (Fentanyl Inj) 50 mcg Q1H PRN IV 03/25/17 05:15 04/08/17 05:14 03/26/17 17:34 50 MCG Midazolam HCl (Versed Inj) 2 mg Q2H PRN IV 03/25/17 05:15 04/24/17 05:14 03/26/17 01:52 2 MG Parenteral Electrolyte Solution 1,000 ml @ 100 mls/hr Q10H IV 03/25/17 06:00 04/24/17 05:59 03/26/17 11:55 100 MLS/HR Aspirin/Aluminum/ Magnesium/Ca Carb (Ascriptin Tab) 325 mg DAILY PO 03/26/17 09:00 04/25/17 08:59 Heparin Sodium/ Dextrose 500 ml @ 16 mls/hr Q24H PRN IV 03/25/17 15:30 04/24/17 15:29 03/25/17 16:10 22 MLS/HR Pantoprazole Sodium 40 mg/ Syringe 10 ml @ 5 mls/min DAILY@11 IV 03/26/17 11:00 04/25/17 10:59 03/26/17 08:49 5 MLS/MIN Methylprednisolone Sodium Succinate 60 mg/Syringe 0.96 ml @ 1.5 mls/min Q6H IV 03/26/17 10:00 04/25/17 09:59 03/26/17 15:55 1.5 MLS/MIN Albuterol (Ventolin Hfa Inhaler) 6 puffs Q6 INH 03/26/17 12:00 04/25/17 11:59 03/26/17 11:31 6 PUFFS Ipratropium [place] (Atrovent Hfa Inhaler) 4 puffs Q6 INH 03/26/17 12:00 04/25/17 11:59 03/26/17 11:31 4 PUFFS Ampicillin Sodium/ Sulbactam Sodium 3000 mg/Sodium Chloride 108 ml @ 200 mls/hr Q6H IV 03/26/17 15:00 03/28/17 14:59 03/26/17 14:34 200 MLS/HR I & O: 24-Hour Column 03/27/17 08:00 Intake Total 936 ml Output Total 375 ml Balance 561 ml Vital Signs: Date Time Temp Pulse Resp B/P (MAP) Pulse Ox O2 Delivery O2 Flow Rate FiO2 03/26/17 16:00 Mechanical Ventilator 30 03/26/17 16:00 30 03/26/17 16:00 37.2 120 20 144/97 (113) 95 Mechanical Ventilator 30 03/26/17 14:05 30 03/26/17 12:00 Mechanical Ventilator 30 03/26/17 12:00 38.4 123 16 144/95 (111) 94 Mechanical Ventilator 30 03/26/17 12:00 30 03/26/17 11:31 30 03/26/17 10:00 38.6 121 16 136/95 (109) 93 Mechanical Ventilator 30 03/26/17 08:00 38.5 125 16 136/87 (103) 92 Mechanical Ventilator 30 03/26/17 08:00 30 03/26/17 08:00 Mechanical Ventilator 30 03/26/17 08:00 Mechanical Ventilator 30 03/26/17 07:15 30 03/26/17 05:20 40 03/26/17 04:30 38.2 03/26/17 04:00 35 03/26/17 04:00 Mechanical Ventilator 03/26/17 04:00 128 13 135/89 (104) 98 40 03/26/17 02:00 121 13 129/89 (102) 98 Mechanical Ventilator 40 03/26/17 01:55 40 03/26/17 00:01 128 15 149/99 (116) 98 Mechanical Ventilator 40 03/25/17 23:59 Mechanical Ventilator 03/25/17 23:59 36.8 128 12 144/99 (114) 97 CPAP 03/25/17 23:59 35 03/25/17 23:06 40 03/25/17 23:01 30 03/25/17 22:00 120 13 143/96 (112) 93 Mechanical Ventilator 30 03/25/17 20:01 35 03/25/17 20:00 35 03/25/17 20:00 37.2 121 15 158/100 (119) Mechanical Ventilator 35 03/25/17 20:00 Mechanical Ventilator 03/25/17 18:00 126 12 165/102 (123) 98 Mechanical Ventilator 35 Laboratory Results: Last 24 Hours Test 03/25/17 21:59 03/26/17 05:34 03/26/17 05:47 03/26/17 08:25 Activated Partial Thromboplast Time 87.5 SECONDS 109.8 SECONDS Partial Thromboplastin Ratio 3.4 4.2 Troponin I 1.410 ng/ml Blood Gas Sample Site L Radial Bedside Blood Gas pH (LAB) 7.36 Bedside Blood Gas pCO2 (LAB) 57 mmHg Bedside Blood Gas pO2 (LAB) 129 mmHg Bedside Blood Gas HCO3 (LAB) 32 meq/L Bedside Blood Gas Total CO2 34 mEq/l Bedside Blood Gas Base Excess (LAB) 7.0 meq/L Bedside Blood Gas O2 Saturation 99.0 % Howard Test Pass Oxygen Delivery Device Ventilator Bedside Oxygen Rate (breaths/min) 18 Blood Gas Minute Ventilation 8.1 Bedside FiO2 40 % Blood Gas Tidal Volume 550 Blood Gas PEEP 5 White Blood Count 10.09 K/uL Red Blood Count 3.09 M/uL Hemoglobin 9.7 g/dL Hematocrit 30.0 % Mean Corpuscular Volume 97.1 fL Mean Corpuscular Hemoglobin 31.4 pg Mean Corpuscular Hemoglobin Concent 32.3 g/dl RDW Standard Deviation 51.9 fL RDW Coefficient of Variation 14.6 % Platelet Count 107 K/uL Mean Platelet Volume 11.7 fL Sodium Level 139 mmol/L Potassium Level 4.0 mmol/L Chloride Level 100 mmol/L Carbon Dioxide Level 31 mmol/L Anion Gap 7.0 mmol/L Blood Urea Nitrogen 24 mg/dl Creatinine 1.32 mg/dl Est Creatinine Clear Calc Drug Dose 42.7 ml/min Estimated GFR () 61.6 Estimated GFR (Non- 53.1 BUN/Creatinine Ratio 18.0 Random Glucose 101 mg/dl Calcium Level 8.0 mg/dl Phosphorus Level 2.9 mg/dl Magnesium Level 2.3 mg/dl Bedside Glucose 102 mg/dl Test 03/26/17 12:10 03/26/17 13:16 Bedside Glucose 115 mg/dl Activated Partial Thromboplast Time 80.9 SECONDS Partial Thromboplastin Ratio 3.1
--- NOTE | 2017-03-26 18:39 | ELECTROENCEPHALOGRAPH REPORT ---
REQUESTING DOCTOR: Dr. Mahoney. CLINICAL DIAGNOSES: Possible seizure versus hypoxia with secondary seizure and right hemiparesis. ELECTROENCEPHALOGRAM DIAGNOSIS: Mildly to moderately diffusely abnormal electroencephalogram during wakefulness. DESCRIPTION OF TRACING: This EEG was done as a bedside recording and is of reasonable technical quality. There are a number of muscle movement artifacts and some eye movement artifacts bifrontally. Overall, the tracing is of higher voltage and the prior one of the day early of the day previously and now does not have any of the low voltage fast activity background that interfere with interpretation of the first tracing. Under these conditions, there is evidence for a background rhythm in the upper theta range of about 8 Hz of maximum frequency and about 20 microvolts of maximum amplitude. This is maximum posterior head regions and bilaterally symmetrical. Polymorphic mid to lower frequency modest amplitude theta activity intermixed with waveforms in the delta range is seen over all head regions maximum in the central regions in a symmetrical fashion. Beta activity is seen bifrontally. At no time during the waking tracing is there evidence for potentially epileptogenic activity in the form of polyspike or spike wave bursts, focal sharp waves or focal spikes. INTERPRETATION: This electroencephalogram now reveals evidence for mild to moderate generalized nonspecific encephalopathy of indeterminate causation but without focal features and without potentially epileptogenic activity.
[2017-03-26] MEDS: CEFTRIAXONE SOD INJ 1 GM in DEXTROSE 5% ADD-VANTAGE 50ML 50 ML IV SCH (19:31)
[2017-03-26] MEDS: AZITHROMYCIN IV 500 MG in DEXTROSE 5% 250ML 250 ML IV SCH (20:24)
[2017-03-26] MEDS: HEPARIN SOD 5000 UNIT/0.5 ML CARP SQ SCH (21:05)
[2017-03-27] VITALS (9 sets, daily range): BP systolic 102–156; BP diastolic 66–97; PULSE 56–122; TEMP 36.4–37.1; O2SAT 90–100
[2017-03-27] MEDS: METHYLPREDNISOLONE IV 60 MG in SYRINGE 0 ML IV SCH ×5 (00:24→21:19)
[2017-03-27] MEDS: ALBUTEROL HFA 8 GM INHALER INH SCH ×4 (01:50→18:40)
[2017-03-27] MEDS: IPRATROPIUM BROMIDE HFA INHALER INH SCH ×4 (01:50→18:40)
[2017-03-27] MEDS: NORMOSOL R 1,000 ML IV SCH ×3 (02:19→09:28)
[2017-03-27] MEDS: FENTANYL CITRATE INJ 50 MCG/1 ML 2 ML VIAL IV PRN ×2 (03:47→09:52)
[2017-03-27 05:43] LABS: HEMATOCRIT 30.1 % (42-52); HEMOGLOBIN 9.6 g/dL (14.0-18.0); MEAN CELL VOLUME 96.5 fL (80-100); MEAN CORPUSCULAR HEMOGLOBIN 30.8 pg (25-34); MEAN CORPUSCULAR HGB CONC 31.9 g/dl (32-36); MEAN PLATELET VOLUME 12.4 fL (7.4-10.4); PLATELET COUNT 134 K/uL (130-400); RED CELL DISTRIBUTION WIDTH CV 14.8 % (11.5-14.5); RED CELL DISTRIBUTION WIDTH SD 52.7 fL (36.4-46.3); WHITE BLOOD COUNT 6.46 K/uL (4.8-10.8)
[2017-03-27 05:47] LABS: PTT PATIENT 32.5 SECONDS (21.0-31.0)
[2017-03-27 06:15] LABS: CREATININE 1.41 mg/dl (0.60-1.40); POTASSIUM 3.8 mmol/L (3.5-5.1)
[2017-03-27 06:16] LABS: PHOSPHORUS 3.3 mg/dl (2.5-4.9)
--- NOTE | 2017-03-27 07:01 | DIAGNOSTIC IMAGING REPORT ---
CHEST ONE VIEW PORTABLE CLINICAL HISTORY: pneumonia COMPARISON STUDY: 03/26/2017 FINDINGS: There is a nasogastric tube which passes into the stomach. There is an endotracheal tube is in addition approximately 4.5 cm above the nat[place]. There is severe pulmonary emphysema. There are persistent bilateral pulmonary airspace opacities unchanged the prior study. There is blunting of the lateral costophrenic angles.[ IMPRESSION: Stable findings. Severe emphysema. Persistent bilateral pulmonary airspace opacities. This could represent either a bilateral pneumonia, or pulmonary edema. Clinical and radiographic follow-up is recommended. Electronically signed by: Mohan Frank M.D. 03/27/2017 6:59 AM Dictated Date/Time: 03/27/2017 6:57 AM
[2017-03-27] MEDS: ASPIRIN/ALUM/MAGNES/CAL CARB 325 MG TAB PO SCH (07:59)
[2017-03-27] MEDS: TRIAMCINOLONE ACET 0.1% CR 15 GM TUBE EXT SCH ×2 (07:59→21:17)
[2017-03-27] MEDS: HEPARIN SOD 5000 UNIT/0.5 ML CARP SQ SCH ×2 (08:00→21:20)
[2017-03-27] MEDS ORDERED: CHOLECALCIFEROL 1000 INTER.UNIT TAB PO SCH (09:00)
--- NOTE | 2017-03-27 09:07 | Progress Note ---
Subjective Date of Service: Mar 27, 2017. Subjective Pt evaluation today including: physical exam, chart review, lab review, review of inpatient medication list Pain: Noncommunicative, intubated PO Intake: NPO Voiding: villa catheter in place 71 yo male, intubated in ICU, noncommunicative due to ET tube but arousable, noted to have a 5 mm distal stone with hydro on CT scan, possibly chronic. Chart reviewed, imaging reviewed, care d/w staff - patient presented in ER 9 days ago with symptoms typical of his COPD flares. Patient has failed attempts at extubation so far, CT on admission suggests underlying emphysematous disease. Question of recent ischemic event is also noted. Plan is being considered by family - suspicion is patient may need a tracheostomy if he can not be intubated. Tachycardia noted. His Cr was 1.4 this AM, chronically slightly elevated at baseline. Problem List Medical Problems: (1) COPD exacerbation Status: Acute (2) Hypoxia Status: Acute (3) Pancytopenia Status: Acute (4) Pneumonia Status: Acute Review of Systems Constitutional: No fever Respiratory: + shortness of breath (tachypnic) Male : No hematuria Objective Vital Signs Date Time Temp Pulse Resp B/P (MAP) Pulse Ox O2 Delivery O2 Flow Rate FiO2 03/27/17 07:10 30 03/27/17 05:05 30 03/27/17 04:00 Mechanical Ventilator 30 03/27/17 04:00 30 03/27/17 04:00 36.4 98 14 133/87 (102) 90 Mechanical Ventilator 30 03/27/17 02:00 122 12 156/97 (116) 94 Mechanical Ventilator 30 03/27/17 01:50 30 03/27/17 00:01 37.1 115 18 140/94 (109) 95 Mechanical Ventilator 30 03/26/17 23:59 30 03/26/17 23:59 Mechanical Ventilator 30 03/26/17 23:18 30 03/26/17 22:00 119 17 130/95 (107) 95 Mechanical Ventilator 30 03/26/17 20:30 30 03/26/17 20:00 37.0 121 19 145/98 (114) 96 30 03/26/17 20:00 30 03/26/17 20:00 Mechanical Ventilator 30 03/26/17 18:24 30 03/26/17 18:05 38.1 114 20 147/98 (114) 95 Mechanical Ventilator 30 03/26/17 16:00 Mechanical Ventilator 30 03/26/17 16:00 30 03/26/17 16:00 37.2 120 20 144/97 (113) 95 Mechanical Ventilator 30 03/26/17 14:05 30 03/26/17 14:00 37.8 125 17 147/89 (108) 93 Mechanical Ventilator 30 03/26/17 12:00 Mechanical Ventilator 30 03/26/17 12:00 38.4 123 16 144/95 (111) 94 Mechanical Ventilator 30 03/26/17 12:00 30 03/26/17 11:31 30 03/26/17 10:00 38.6 121 16 136/95 (109) 93 Mechanical Ventilator 30 Physical Exam General Appearance: + mild distress (tachypnic, intubated) Cardiovascular: no JVD Abdomen: non tender, soft Skin: normal color Laboratory Results Last 24 Hours Test 03/26/17 12:10 03/26/17 13:16 03/26/17 16:08 03/27/17 05:13 Bedside Glucose 115 mg/dl 136 mg/dl Activated Partial Thromboplast Time 80.9 SECONDS 32.5 SECONDS Partial Thromboplastin Ratio 3.1 1.3 White Blood Count 6.46 K/uL Red Blood Count 3.12 M/uL Hemoglobin 9.6 g/dL Hematocrit 30.1 % Mean Corpuscular Volume 96.5 fL Mean Corpuscular Hemoglobin 30.8 pg Mean Corpuscular Hemoglobin Concent 31.9 g/dl RDW Standard Deviation 52.7 fL RDW Coefficient of Variation 14.8 % Platelet Count 134 K/uL Mean Platelet Volume 12.4 fL Sodium Level 136 mmol/L Potassium Level 3.8 mmol/L Chloride Level 98 mmol/L Carbon Dioxide Level 29 mmol/L Anion Gap 9.0 mmol/L Blood Urea Nitrogen 28 mg/dl Creatinine 1.41 mg/dl Est Creatinine Clear Calc Drug Dose 39.7 ml/min Estimated GFR () 56.9 Estimated GFR (Non- 49.1 BUN/Creatinine Ratio 19.8 Random Glucose 149 mg/dl Calcium Level 8.0 mg/dl Phosphorus Level 3.3 mg/dl Magnesium Level 2.4 mg/dl Assessment and Plan A/P 71 yo male with R distal ureteral stone, multisystem organ failure. Findings reviewed. The degree to which the patient's R distal stone is involved in his current critical condition is unclear. At this point, he is suffering from multisystem issues of which his pulmonary status is most acute. The solution to any contribution from his R renal moeity would be to place an acute stent which should be feasible quickly and under minimal sedation. Will defer the need for R renal drainage to the ICU service. Continue current management.
[2017-03-27] MEDS: PANTOprazole INJ 40 MG in SYRINGE 0 ML IV SCH (09:50)
[2017-03-27] MEDS: SODIUM CHLORIDE 0.9% 1000ML 1,000 ML IV SCH ×2 (09:54→20:00)
[2017-03-27] MEDS ORDERED: DexMEDEtomidine HCL IV 200 MCG in SODIUM CHLORIDE 0.9% 50ML 48 ML IV SCH ×2 (10:00→16:00)
[2017-03-27] MEDS ORDERED: ADENOSINE IV SOLN 3 MG/ML 2 ML VIAL ONE (12:09)
[2017-03-27] MEDS ORDERED: FENTANYL CITRATE 1250MCG/250ML NSS ONE (12:20)
[2017-03-27] MEDS ORDERED: FENTANYL 1250MCG/250ML NSS IV PRN (15:15)
--- NOTE | 2017-03-27 15:31 | PROGRESS NOTE ---
DATE: 03/27/2017 SUBJECTIVE: Collins was seen today. He received a lot of sedation because of tachycardia and some agitation and is now stuporous, does not respond to any external stimuli, will withdraw minimally to noxious stimulation of his hands and has no preferential eye deviation, although keeps his eyes closed and it is difficult to assess. This man is in terminal respiratory failure. I think the ICU staff is in agreement and is in the process of speaking with the family regarding palliative care and supportive care. Neurologically, I think the issue regarding whether he had a stroke or not is totally academic. I think that the seizure was a manifestation of an acute hypoxic ischemic event rather than a primary grease remover in all of this and I do not think there is much more to offer neurologically and I certainly would not treat him with anticonvulsants based on the overall clinical picture, the electroencephalograph features, and his current status. I will check back with him periodically. JOSÉ MANUEL
--- NOTE | 2017-03-27 15:35 | Palliative Care Consultation ---
Consultation Date of Consultation: Mar 27, 2017. Requesting Physician: Dr. Lares Attending Physician: Dr. Lares Reason for Consultation: Goals of care History of Present Illness This 71 year old male patient with PMH COPD with chronic home oxygen use, htn, CKD, thrombocytopenia, and diverticulosis, presented to the hospital nine days ago with c/o shortness of breath and cough x1 week. Patient admitted and treated for COPD exacerbation and CHASITY. He initially improved and was going to be discharged to [facility]. Unfortunately, patient suffered a seizure-like event with respiratory failure and subsequent transfer to ICU with intubation. Patient is now on ventilator day 3. CT chest on 03/19 shows emphysema, bilateral pleural effusions, mid and lower lung basilar bronchiectatic change, and apical/ posterior lung bled formation. CXR today showed severe emphysema, persistent bilateral pulmonary airspace opacities representing possible pneumonia or pulmonary edema. He remains on IV abx and IV steroids. Unfortunately, he has failed all CPAP trials as he becomes tachypneic, tachycardic, and hypoxic. He is requiring Precedex for sedation, fentanyl infusion for pain/sedation as well. With patient's severe chronic lung disease, extubation will be quite difficult and patient may be looking at extended intubation and possibility of needing trach/PEG if the wish is to continue aggressive treatment. Patient's son , Collins Samaniego, is decision maker for his father. Palliative care is consulted to assist in establishing goals of care. I met with the patient's son, Collins, his s/o Izabela, Dr. Lares, and Dr. Mar, in room 106. Patient is ventilated and sedated at this time-- unable to participate in conversation or obtain ROS from him. Dr. Lares explained patient 's medical conditions and showed Collins the patient's CT scan of the lungs. Treatment options were discussed: trach/PEG if we reach day 7 on the vent without successful liberation vs. terminal extubation and keeping patient comfortable to allow natural . Collins was tearful, and is requesting time to speak with his other family members. Past Medical/Surgical History Medical History: as above Social History Smoking Status: Current Every Day Smoker History of Alcohol Use: Yes (patient will not say ) Marital Status: single Housing Status: lives alone Occupation Status: retired Review of Systems unable to obtain due to patient condition Allergies Coded Allergies: POLLEN (Verified Allergy, Unknown, SEASONAL ALLERGIES, 03/18/17) Lactose Intolerance (Verified Adverse Reaction, Intermediate, GI SYMPTOMS , 03/18/17) Medications Current Inpatient Medications Medications (Trade) Dose Ordered Sig/Rosemary Route Start Time Stop Time Status Last Admin Dose Admin Acetaminophen (Tylenol Tab) 650 mg Q4H PRN PO 03/18/17 20:30 04/17/17 20:29 03/26/17 08:50 650 MG Triamcinolone Acetonide (Kenalog 0.1% Cream) 1 appln BID EXT 03/18/17 21:00 04/17/17 20:59 03/27/17 07:59 1 APPLN Miscellaneous Information (Order Awaiting Action) 1 ea QS N/A 03/19/17 00:00 04/18/17 00:00 Fluticasone Propionate (Flonase Nasal [place]) 1 sprays DAILY NA 03/20/17 09:00 04/19/17 08:59 Future Hold 03/24/17 07:44 1 SPRAYS Budesonide/ Formoterol Fumarate (Symbicort 160/ 4.5 Inh) 2 puffs BID INH 03/20/17 09:00 04/19/17 08:59 Future Hold 03/24/17 20:52 2 PUFFS Albuterol/ Ipratropium (Combivent Respimat Inh) 1 puffs QID INH 03/21/17 10:15 04/19/17 08:44 Future Hold 03/24/17 20:52 1 PUFFS Sodium Chloride ([place] Nasal [place]) 1 sprays PRN PRN NA 03/22/17 02:15 04/21/17 02:14 Future Hold Enteral Nutritional Formula (Boost) 1 can BIDM PO 03/22/17 17:00 04/21/17 16:59 Future Hold 03/24/17 16:15 1 CAN Guaifenesin (Organidin Nr Tab) 200 mg Q4 PRN PO 03/25/17 00:00 04/24/17 00:00 Future Hold 03/24/17 22:15 200 MG Fentanyl Citrate (Fentanyl Inj) 50 mcg Q1H PRN IV 03/25/17 05:15 04/08/17 05:14 03/27/17 09:52 50 MCG Pantoprazole Sodium 40 mg/ Syringe 10 ml @ 5 mls/min DAILY@11 IV 03/26/17 11:00 04/25/17 10:59 03/27/17 09:50 5 MLS/MIN Methylprednisolone Sodium Succinate 60 mg/Syringe 0.96 ml @ 1.5 mls/min Q6H IV 03/26/17 10:00 04/25/17 09:59 03/27/17 09:50 1.5 MLS/MIN Ceftriaxone Sodium 1 gm/ Dextrose 50 ml @ 100 mls/hr DAILY@1800 IV 03/26/17 18:30 04/02/17 18:29 03/26/17 19:31 100 MLS/HR Azithromycin 500 mg/Dextrose 255 ml @ 125 mls/hr Q24H IV 03/26/17 19:00 04/02/17 18:59 03/26/17 20:24 125 MLS/HR Heparin Sodium (Porcine) (Heparin Sq 5000 Unit/0.5ml) 5,000 unit Q12 SQ 03/26/17 21:00 04/25/17 20:59 03/27/17 08:00 5,000 UNIT Ipratropium [place] (Atrovent Hfa Inhaler) 4 puffs Q6R INH 03/27/17 03:00 04/26/17 02:59 03/27/17 14:35 4 PUFFS Albuterol (Ventolin Hfa Inhaler) 4 puffs Q6R INH 03/27/17 03:00 04/26/17 02:59 03/27/17 14:35 4 PUFFS Dexmedetomidine HCl 200 mcg/ Sodium Chloride 50 ml @ 0 mls/hr Q0M IV 03/27/17 10:00 03/31/17 09:59 03/27/17 10:48 7.56 MLS/HR Sodium Chloride 1,000 ml @ 100 mls/hr Q10H IV 03/27/17 10:00 04/26/17 09:59 03/27/17 09:54 100 MLS/HR Aspirin (Aspirin Chew) 81 mg DAILY PO 03/28/17 09:00 04/27/17 08:59 Enteral Nutritional Formula (Impact 1.0 Ramirez) 1,000 ml UD PRN OG 03/27/17 11:45 04/26/17 11:44 Physical Exam Date Time Temp Pulse Resp B/P (MAP) Pulse Ox O2 Delivery O2 Flow Rate FiO2 03/27/17 14:37 30 03/27/17 12:00 30 03/27/17 12:00 100 Mechanical Ventilator 30 03/27/17 12:00 36.8 104 34 143/78 (99) 100 Mechanical Ventilator 30 03/27/17 11:10 30 03/27/17 08:00 95 Mechanical Ventilator 30 03/27/17 08:00 30 03/27/17 08:00 Mechanical Ventilator 30 03/27/17 08:00 36.8 120 30 150/89 (109) 93 Mechanical Ventilator 30 03/27/17 07:10 30 03/27/17 05:05 30 03/27/17 04:00 Mechanical Ventilator 30 03/27/17 04:00 30 03/27/17 04:00 36.4 98 14 133/87 (102) 90 Mechanical Ventilator 30 03/27/17 02:00 122 12 156/97 (116) 94 Mechanical Ventilator 30 03/27/17 01:50 30 03/27/17 00:01 37.1 115 18 140/94 (109) 95 Mechanical Ventilator 30 03/26/17 23:59 30 03/26/17 23:59 Mechanical Ventilator 30 03/26/17 23:18 30 03/26/17 22:00 119 17 130/95 (107) 95 Mechanical Ventilator 30 03/26/17 20:30 30 03/26/17 20:00 37.0 121 19 145/98 (114) 96 30 03/26/17 20:00 30 03/26/17 20:00 Mechanical Ventilator 30 03/26/17 18:24 30 03/26/17 18:05 38.1 114 20 147/98 (114) 95 Mechanical Ventilator 30 03/26/17 16:00 Mechanical Ventilator 30 03/26/17 16:00 30 03/26/17 16:00 37.2 120 20 144/97 (113) 95 Mechanical Ventilator 30 General Appearance: no apparent distress, + thin ENT: + pertinent finding (ETT present) Neck: supple, no JVD Respiratory: no respiratory distress, no accessory muscle use, + rhonchi ( course throughout), + pertinent finding (on mechanical ventilator, patient not breathing above vent) Cardiovascular: regular rate, rhythm, no edema, + normal peripheral pulses Abdomen: normal bowel sounds, soft, + pertinent finding (OGT present, no tube feedings) Neurologic/Psychiatric: + pertinent finding (sedated) Laboratory Results Last 24 Hours Test 03/26/17 16:08 03/27/17 05:13 Bedside Glucose 136 mg/dl White Blood Count 6.46 K/uL Red Blood Count 3.12 M/uL Hemoglobin 9.6 g/dL Hematocrit 30.1 % Mean Corpuscular Volume 96.5 fL Mean Corpuscular Hemoglobin 30.8 pg Mean Corpuscular Hemoglobin Concent 31.9 g/dl RDW Standard Deviation 52.7 fL RDW Coefficient of Variation 14.8 % Platelet Count 134 K/uL Mean Platelet Volume 12.4 fL Activated Partial Thromboplast Time 32.5 SECONDS Partial Thromboplastin Ratio 1.3 Sodium Level 136 mmol/L Potassium Level 3.8 mmol/L Chloride Level 98 mmol/L Carbon Dioxide Level 29 mmol/L Anion Gap 9.0 mmol/L Blood Urea Nitrogen 28 mg/dl Creatinine 1.41 mg/dl Est Creatinine Clear Calc Drug Dose 39.7 ml/min Estimated GFR () 56.9 Estimated GFR (Non- 49.1 BUN/Creatinine Ratio 19.8 Random Glucose 149 mg/dl Calcium Level 8.0 mg/dl Phosphorus Level 3.3 mg/dl Magnesium Level 2.4 mg/dl Assessment & Plan Palliative Performance Scale: 20 % Problem list: Respiratory failure, acute on chronic COPD, severe Pneumonia, RLL NSTEMI Possible seizure activity- neurology following CHASITY on CKD- improved creatinine from admission Goals of care (Z51.5) Palliative care recs: discussed with patient's son and his s/o, and Dr. Lares. -Patient is still currently level 1/full code. He remains on ventilator at this time. -Severe chronic lung disease will make extubation difficult. Patient has failed CPAP trials on vent. Options for care that were presented to patient's son: continue ventilating and make decision on trach/PEG (at least by day 7) if wish is to continue aggressive treatment vs. withdrawing care, terminal extubation, and allowing comfortable, natural . -Son, Collins, would like some time to discuss with family members. He is not prepared to make a decision at this time. -Support offered to patient's family. No further questions/concerns from them at this time. Thank you kindly for this consult. I will continue to follow.
[2017-03-27] MEDS ORDERED: NURSING VERBAL MED ORDER ONE (16:30)
[2017-03-27] MEDS: SODIUM CHLORIDE 0.9% IV PRN ×2 (16:33→17:39)
[2017-03-27] MEDS: DEXMEDETOMIDINE HCL IV PRN ×2 (16:33→17:39)
[2017-03-27] MEDS: CEFTRIAXONE SOD INJ 1 GM in DEXTROSE 5% ADD-VANTAGE 50ML 50 ML IV SCH (17:31)
--- NOTE | 2017-03-27 17:52 | Progress Note ---
Medicine Progress Note Date & Time of Visit: Mar 27, 2017 at 14:15. Subjective 71 yo M admitted with COPD exacerbation from PCP office, suffered a hypoxic event after noncompliance with BIPAP on 03/25 and developed seizure activity. He was treated with Ativan and subsequently intubated in the ICU. He remains vented and has continued to fail CPAP trials of wean. -pt is intubated and sedated so no ROS could be obtained. Objective Last 8 Hrs Date Time Temp Pulse Resp B/P (MAP) Pulse Ox O2 Delivery O2 Flow Rate FiO2 03/27/17 12:00 30 03/27/17 12:00 100 Mechanical Ventilator 30 03/27/17 12:00 36.8 104 34 143/78 (99) 100 Mechanical Ventilator 30 03/27/17 08:00 95 Mechanical Ventilator 30 03/27/17 08:00 30 03/27/17 08:00 Mechanical Ventilator 30 03/27/17 08:00 36.8 120 30 150/89 (109) 93 Mechanical Ventilator 30 03/27/17 07:10 30 Physical Exam: GEN: WNWD, intubated, sedated. HEENT: NC/AT, PERRL, normal sclerae CARDIO: reg rate, S1/2 heard without m/g/r LUNGS: CTA bilaterally, no crackles, rales or wheezes ABD: soft, non-distended, no guarding. +BS EXTREMITY: RP and DP palpable 2+ bilat, no LE swelling or edema, extremities are warm and well-perfused NEURO: intubated and sedated so limited assessment could be performed. MUSC: intubated and sedated so could not perform. SKIN: warm and dry, multiple areas of ecchymosis on arms. Laboratory Results: 03/27/17 05:13 03/27/17 05:13 Test 03/18/17 00:00 03/18/17 17:25 03/18/17 20:14 03/19/17 00:53 Influenza Type A (RT-PCR) Neg for Influ A (NEG) Influenza Type A Antigen Neg for Influ A (NEG) Influenza Type B Antigen Neg for Influ B (NEG) Influenza Type B (RT-PCR) Neg for Influ B (NEG) Giant Platelets 1+ Polychromasia 1+ Peripheral Blood Smear Path Consult Lactic Acid Level 0.6 mmol/L (0.4-2.0) Anisocytosis PRESENT Absolute Reticulocyte Count 0.06 10^6/uL (0.02-0.10) Percent Reticulocyte Count 2.6 % (0.5-2.0) Ferritin 178.5 ng/ml (8.0-388.0) Vitamin B12 Level 559 pg/mL (211-911) Folate 10.95 ng/mL (>5.38) Test 03/20/17 05:43 03/20/17 10:03 03/22/17 05:14 03/23/17 07:22 Large Platelets 1+ Basophilic Stippling OCCASIONAL Iron Level 36 mcg/dl (35-175) Total Iron Binding Capacity 182 mcg/dl (250-450) Transferrin 123 mg/dl (200-360) Transferrin % Saturation 21 % (20-50) Arterial Blood pH 7.30 (7.35-7.45) Arterial Blood Partial Pressure CO2 61 mmHg (35-46) Arterial Blood Partial Pressure O2 65 mm/Hg (80-95) Arterial Blood HCO3 30 mmol/L (19-24) Arterial Blood Oxygen Saturation 91.5 % (90-95) Arterial Blood Base Excess 2.7 mEq/L (-9-1.8) Arterial Blood Gas Delivery 3 L Howard Test POS (POS) Platelet Estimate DECREASED Hypochromasia PRESENT Prostate Specific Antigen 1.680 ng/ml (0.000-4.000) Test 03/23/17 10:47 03/24/17 05:20 03/24/17 10:25 03/25/17 04:53 Urine Color YELLOW Urine Appearance CLEAR (CLEAR) Urine pH 7.5 (4.5-7.5) Urine Specific [place] 1.018 (1.000-1.030) Urine Protein NEG (NEG) Urine Glucose (UA) NEG (NEG) Urine Ketones NEG (NEG) Urine Occult Blood NEG (NEG) Urine Nitrite NEG (NEG) Urine Bilirubin NEG (NEG) Urine Urobilinogen NEG (NEG) Urine Leukocyte Esterase TRACE (NEG) Urine WBC (Auto) 1-5 /hpf (0-5) Urine RBC (Auto) 0-4 /hpf (0-4) Urine Hyaline Casts (Auto) 1-5 /lpf (0-5) Urine Epithelial Cells (Auto) >30 /lpf (0-5) Urine Bacteria (Auto) NEG (NEG) Urine Mucus PRESENT (NONE PRSENT) Urine Yeast (Auto) BUDDING (NONE PRSENT) Red Blood Cell Morphology Unremarkable Stool Occult Blood NEGATIVE (NEGATIVE) Immature Granulocyte % (Auto) 1.2 % White Blood Count 16.97 K/uL (4.8-10.8) Red Blood Count 3.25 M/uL (4.7-6.1) Hemoglobin 10.1 g/dL (14.0-18.0) Hematocrit 33.1 % (42-52) Mean Corpuscular Volume 101.8 fL (80-100) Mean Corpuscular Hemoglobin 31.1 pg (25-34) Mean Corpuscular Hemoglobin Concent 30.5 g/dl (32-36) Platelet Count 109 K/uL (130-400) Mean Platelet Volume 10.9 fL (7.4-10.4) Neutrophils (%) (Auto) 79.8 % Lymphocytes (%) (Auto) 10.1 % Monocytes (%) (Auto) 5.8 % Eosinophils (%) (Auto) 2.9 % Basophils (%) (Auto) 0.2 % Neutrophils # (Auto) 13.53 K/uL (1.4-6.5) Lymphocytes # (Auto) 1.72 K/uL (1.2-3.4) Monocytes # (Auto) 0.99 K/uL (0.11-0.59) Eosinophils # (Auto) 0.49 K/uL (0-0.5) Basophils # (Auto) 0.04 K/uL (0-0.2) Immature Granulocyte # (Auto) 0.20 K/uL (0.00-0.02) Direct Bilirubin 0.1 mg/dl (0-0.2) Test 03/25/17 06:49 03/25/17 16:07 03/25/17 21:59 03/26/17 05:34 Total Bilirubin 0.6 mg/dl (0.2-1) Aspartate Amino Transf (AST/SGOT) 14 U/L (15-37) Alanine Aminotransferase (ALT/SGPT) 16 U/L (12-78) Alkaline Phosphatase 51 U/L (45-117) Total Protein 5.4 gm/dl (6.4-8.2) Albumin 2.8 gm/dl (3.4-5.0) Globulin 2.6 gm/dl (2.5-4.0) Albumin/Globulin Ratio 1.1 (0.9-2) Prothrombin Time 10.3 SECONDS (9.0-12.0) Prothromb Time International Ratio 1.0 (0.9-1.1) Troponin I 1.410 ng/ml (0-0.045) Blood Gas Sample Site L Radial Bedside Blood Gas pH (LAB) 7.36 (7.35-7.45) Bedside Blood Gas pCO2 (LAB) 57 mmHg (35-46) Bedside Blood Gas pO2 (LAB) 129 mmHg (80-95) Bedside Blood Gas HCO3 (LAB) 32 meq/L (19-24) Bedside Blood Gas Total CO2 34 mEq/l (24-31) Bedside Blood Gas Base Excess (LAB) 7.0 meq/L (-9-1.8) Bedside Blood Gas O2 Saturation 99.0 % (90-95) Howard Test Pass Oxygen Delivery Device Ventilator Bedside Oxygen Rate (breaths/min) 18 Blood Gas Minute Ventilation 8.1 Bedside FiO2 40 % Blood Gas Tidal Volume 550 Blood Gas PEEP 5 Test 03/26/17 16:08 03/27/17 05:13 Bedside Glucose 136 mg/dl (70-99) Red Blood Count 3.12 M/uL (4.7-6.1) Mean Corpuscular Volume 96.5 fL (80-100) Mean Corpuscular Hemoglobin 30.8 pg (25-34) Mean Corpuscular Hemoglobin Concent 31.9 g/dl (32-36) RDW Standard Deviation 52.7 fL (36.4-46.3) RDW Coefficient of Variation 14.8 % (11.5-14.5) Mean Platelet Volume 12.4 fL (7.4-10.4) Activated Partial Thromboplast Time 32.5 SECONDS (21.0-31.0) Partial Thromboplastin Ratio 1.3 Anion Gap 9.0 mmol/L (3-11) Est Creatinine Clear Calc Drug Dose 39.7 ml/min Estimated GFR () 56.9 Estimated GFR (Non- 49.1 BUN/Creatinine Ratio 19.8 (10-20) Calcium Level 8.0 mg/dl (8.5-10.1) Phosphorus Level 3.3 mg/dl (2.5-4.9) Magnesium Level 2.4 mg/dl (1.8-2.4) Date/Time Source Procedure Growth Status 03/18/17 20:10 Blood Blood Culture - Final NO GROWTH Complete 03/25/17 09:20 Nasal MRSA DNA Surveillance Screen - Final Specimen Negative for MRSA by DNA Probe Complete 03/21/17 13:30 Sputum Expectorated Sputum Gram Stain - Final Complete 03/21/17 13:30 Sputum Culture - Final Treva Albicans Complete 03/23/17 10:47 Urine , Clean Catch Urine Culture - Final Treva Albicans Complete Last 24 Hours Test 03/26/17 16:08 03/27/17 05:13 Bedside Glucose 136 mg/dl White Blood Count 6.46 K/uL Red Blood Count 3.12 M/uL Hemoglobin 9.6 g/dL Hematocrit 30.1 % Mean Corpuscular Volume 96.5 fL Mean Corpuscular Hemoglobin 30.8 pg Mean Corpuscular Hemoglobin Concent 31.9 g/dl RDW Standard Deviation 52.7 fL RDW Coefficient of Variation 14.8 % Platelet Count 134 K/uL Mean Platelet Volume 12.4 fL Activated Partial Thromboplast Time 32.5 SECONDS Partial Thromboplastin Ratio 1.3 Sodium Level 136 mmol/L Potassium Level 3.8 mmol/L Chloride Level 98 mmol/L Carbon Dioxide Level 29 mmol/L Anion Gap 9.0 mmol/L Blood Urea Nitrogen 28 mg/dl Creatinine 1.41 mg/dl Est Creatinine Clear Calc Drug Dose 39.7 ml/min Estimated GFR () 56.9 Estimated GFR (Non- 49.1 BUN/Creatinine Ratio 19.8 Random Glucose 149 mg/dl Calcium Level 8.0 mg/dl Phosphorus Level 3.3 mg/dl Magnesium Level 2.4 mg/dl Other Studies: Assessment & Plan 71 yo M admitted with COPD exacerbation from PCP office, suffered a hypoxic event after noncompliance with BIPAP on 03/25 and developed seizure activity. He was treated with Ativan and subsequently intubated in the ICU. He remains vented and has continued to fail CPAP trials of wean. 1. COPD exacerbation 2/2 RLL pneumonia-Unasyn stopped today and Ceftriaxone and Azithro continued for CAP treatment. Continues on IV steroids and bronchodilators. Poor prognosis-cont mechanical ventilation until extubation possible, or trach/PEG if not extubatable vs palliative care and terminal extubation. 2. Elevated troponins with new onset cardiomyopathy- Presumed secondary to demand ischemia related to rate and poor pump function. Patient was on heparin for medical treatment of NSTEMI for past couple of days, however, with this consideration and development of ecchymosis, this was discontinued. Cont ASA 81mg PO daily. 3. Esophageal dysmotility-noted on recent Barium swallow. Currently intubated with OGT in place. Feedings are being held until decision comes if we are removing life support or not. 4. CHASITY-creatinine remains 1.4, slightly elevated from baseline 1.0 in 2016 5. Ureteral calculus-5mm obstructing calculus present in distal right ureter noted on CT 03/23. Urology is following and considering stent depending on goals of care. Pt remains sedated and vented, appears comfortable at this time. DVT proph-SCDs 2/2 thrombocytopenia. Full Code Dispo-uncertain at this time. Palliative Care team is involved and is assisting with family discussions with ICU team. Pamela Moreno DO [facility] Hospitalist Consultants: Dr. Lares-ICU Dr. Jaramillo-Urology Procedures: . Current Inpatient Medications: Current Inpatient Medications Medications (Trade) Dose Ordered Sig/Rosemary Route Start Time Stop Time Status Last Admin Dose Admin Acetaminophen (Tylenol Tab) 650 mg Q4H PRN PO 03/18/17 20:30 04/17/17 20:29 03/26/17 08:50 650 MG Triamcinolone Acetonide (Kenalog 0.1% Cream) 1 appln BID EXT 03/18/17 21:00 04/17/17 20:59 03/27/17 07:59 1 APPLN Miscellaneous Information (Order Awaiting Action) 1 ea QS N/A 03/19/17 00:00 04/18/17 00:00 Fluticasone Propionate (Flonase Nasal [place]) 1 sprays DAILY NA 03/20/17 09:00 04/19/17 08:59 Future Hold 03/24/17 07:44 1 SPRAYS Budesonide/ Formoterol Fumarate (Symbicort 160/ 4.5 Inh) 2 puffs BID INH 03/20/17 09:00 04/19/17 08:59 Future Hold 03/24/17 20:52 2 PUFFS Albuterol/ Ipratropium (Combivent Respimat Inh) 1 puffs QID INH 03/21/17 10:15 04/19/17 08:44 Future Hold 03/24/17 20:52 1 PUFFS Sodium Chloride ([place] Nasal [place]) 1 sprays PRN PRN NA 03/22/17 02:15 04/21/17 02:14 Future Hold Enteral Nutritional Formula (Boost) 1 can BIDM PO 03/22/17 17:00 04/21/17 16:59 Future Hold 03/24/17 16:15 1 CAN Guaifenesin (Organidin Nr Tab) 200 mg Q4 PRN PO 03/25/17 00:00 04/24/17 00:00 Future Hold 03/24/17 22:15 200 MG Fentanyl Citrate (Fentanyl Inj) 50 mcg Q1H PRN IV 03/25/17 05:15 04/08/17 05:14 03/27/17 09:52 50 MCG Pantoprazole Sodium 40 mg/ Syringe 10 ml @ 5 mls/min DAILY@11 IV 03/26/17 11:00 04/25/17 10:59 03/27/17 09:50 5 MLS/MIN Methylprednisolone Sodium Succinate 60 mg/Syringe 0.96 ml @ 1.5 mls/min Q6H IV 03/26/17 10:00 04/25/17 09:59 03/27/17 09:50 1.5 MLS/MIN Ceftriaxone Sodium 1 gm/ Dextrose 50 ml @ 100 mls/hr DAILY@1800 IV 03/26/17 18:30 04/02/17 18:29 03/26/17 19:31 100 MLS/HR Azithromycin 500 mg/Dextrose 255 ml @ 125 mls/hr Q24H IV 03/26/17 19:00 04/02/17 18:59 03/26/17 20:24 125 MLS/HR Heparin Sodium (Porcine) (Heparin Sq 5000 Unit/0.5ml) 5,000 unit Q12 SQ 03/26/17 21:00 04/25/17 20:59 03/27/17 08:00 5,000 UNIT Ipratropium [place] (Atrovent Hfa Inhaler) 4 puffs Q6R INH 03/27/17 03:00 04/26/17 02:59 03/27/17 07:10 4 PUFFS Albuterol (Ventolin Hfa Inhaler) 4 puffs Q6R INH 03/27/17 03:00 1/11/18 02:59 03/27/17 07:10 4 PUFFS Dexmedetomidine HCl 200 mcg/ Sodium Chloride 50 ml @ 0 mls/hr Q0M IV 03/27/17 10:00 03/31/17 09:59 03/27/17 10:48 7.56 MLS/HR Sodium Chloride 1,000 ml @ 100 mls/hr Q10H IV 03/27/17 10:00 04/26/17 09:59 03/27/17 09:54 100 MLS/HR Aspirin (Aspirin Chew) 81 mg DAILY PO 03/28/17 09:00 04/27/17 08:59 Enteral Nutritional Formula (Impact 1.0 Ramirez) 1,000 ml UD PRN OG 03/27/17 11:45 04/26/17 11:44
[2017-03-27] MEDS: IMPACT LIQ 1000 ML BAG OG PRN (18:20)
[2017-03-27] MEDS: AZITHROMYCIN IV 500 MG in DEXTROSE 5% 250ML 250 ML IV SCH (18:20)
--- NOTE | 2017-03-27 19:54 | Critical Care Progress Note ---
Critical Care Progress Note Date of Service Mar 27, 2017. Attending Dr. Lares Subjective The patient up in his eyes to command however he answers with yes and no while he is intubated. Does not appear to be in any distress except when he is on spontaneous breathing trial. The rest of his review of system was not obtainable due to his intubation. Objective ROS is not obtainable. HR tachycardia. S1S2 RRR. distant BS bilaterally. abdomen is benign. multiple sc hematomas. neuro non focal. awake and following commands properly. His physical exam on 03/28/2017 revealed elderly gentleman does not appear to be in any distress currently vented. He sedated with Precedex. Heart examination S1-S2 regular rate and rhythm. The patient did have an episode of SVT requiring adenosine however P-wave was obvious and the patient had normal sinus rhythm. Abdomen is benign. No edema. Neurologically with weakness on the right side. Current SOFA Score SOFA Score Response (Comments) Value PaO2/FiO2 (mmHg) < 400 1 SaO2 / FIO2 221 - 301 1 Platelets (x10) > 150 0 Bilirubin (mg/dL) < 1.2 0 [place] Coma Score 10 - 12 2 Level of Hypotension No Hypotension 0 Creatinine (mg/dL) < 1.2 0 Total 4 Assessment & Plan #1 acute respiratory failure secondary to severe COPD, gold level IV. #2 severe COPD. With bolus disease. 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 #4 history of acute on chronic hypercapnic respiratory failure resolved with an altered mental status. Resolving slowly. #5 history of short respiratory arrest requiring resuscitation. #6 history of depression. #7 right lower lobe pneumonia. Plan: #1 continue with spontaneous breathing trial daily. #2 continue with the steroids and antibiotics. #3 bronchodilators. #4 the patient does not appear to make an improvement respiratory beltran due to severe lung disease. He is out of the range for lung transplant. Discussion with the family including his son and his took place and I showed him all the films including the CAT scan of the chest which showed severe bullae affecting the right and left lung. They understand the gravity of his illness, they are not sure about tracheostomy versus terminal wean. #5 start the patient to feeding. #6 stop heparin drip and continue with heparin subcutaneous. #7 continue GI prophylaxis. #8 multiple areas of induration secondary to possible hematomas has been stable. No drop in hematocrit. #9 will obtain labs in the morning including ABG. Case discussed with the staff about details. Critical care time spent with the patient was 45 minutes. Consults & Procedures Consultants: neurology. Procedures: none today. Data Medications: Current Inpatient Medications Medications (Trade) Dose Ordered Sig/Rosemary Route Start Time Stop Time Status Last Admin Dose Admin Acetaminophen (Tylenol Tab) 650 mg Q4H PRN PO 03/18/17 20:30 04/17/17 20:29 03/26/17 08:50 650 MG Triamcinolone Acetonide (Kenalog 0.1% Cream) 1 appln BID EXT 03/18/17 21:00 04/17/17 20:59 03/27/17 07:59 1 APPLN Miscellaneous Information (Order Awaiting Action) 1 ea QS N/A 03/19/17 00:00 04/18/17 00:00 Fluticasone Propionate (Flonase Nasal [place]) 1 sprays DAILY NA 03/20/17 09:00 04/19/17 08:59 Future Hold 03/24/17 07:44 1 SPRAYS Budesonide/ Formoterol Fumarate (Symbicort 160/ 4.5 Inh) 2 puffs BID INH 03/20/17 09:00 04/19/17 08:59 Future Hold 03/24/17 20:52 2 PUFFS Albuterol/ Ipratropium (Combivent Respimat Inh) 1 puffs QID INH 03/21/17 10:15 04/19/17 08:44 Future Hold 03/24/17 20:52 1 PUFFS Sodium Chloride ([place] Nasal [place]) 1 sprays PRN PRN NA 03/22/17 02:15 04/21/17 02:14 Future Hold Enteral Nutritional Formula (Boost) 1 can BIDM PO 03/22/17 17:00 04/21/17 16:59 Future Hold 03/24/17 16:15 1 CAN Guaifenesin (Organidin Nr Tab) 200 mg Q4 PRN PO 03/25/17 00:00 04/24/17 00:00 Future Hold 03/24/17 22:15 200 MG Fentanyl Citrate (Fentanyl Inj) 50 mcg Q1H PRN IV 03/25/17 05:15 04/08/17 05:14 03/27/17 09:52 50 MCG Pantoprazole Sodium 40 mg/ Syringe 10 ml @ 5 mls/min DAILY@11 IV 03/26/17 11:00 04/25/17 10:59 03/27/17 09:50 5 MLS/MIN Methylprednisolone Sodium Succinate 60 mg/Syringe 0.96 ml @ 1.5 mls/min Q6H IV 03/26/17 10:00 04/25/17 09:59 03/27/17 17:31 1.5 MLS/MIN Ceftriaxone Sodium 1 gm/ Dextrose 50 ml @ 100 mls/hr DAILY@1800 IV 03/26/17 18:30 04/02/17 18:29 03/27/17 17:31 100 MLS/HR Azithromycin 500 mg/Dextrose 255 ml @ 125 mls/hr Q24H IV 03/26/17 19:00 04/02/17 18:59 03/27/17 18:20 125 MLS/HR Heparin Sodium (Porcine) (Heparin Sq 5000 Unit/0.5ml) 5,000 unit Q12 SQ 03/26/17 21:00 04/25/17 20:59 03/27/17 08:00 5,000 UNIT Ipratropium [place] (Atrovent Hfa Inhaler) 4 puffs Q6R INH 03/27/17 03:00 04/26/17 02:59 03/27/17 18:40 4 PUFFS Albuterol (Ventolin Hfa Inhaler) 4 puffs Q6R INH 03/27/17 03:00 04/26/17 02:59 03/27/17 18:40 4 PUFFS Sodium Chloride 1,000 ml @ 100 mls/hr Q10H IV 03/27/17 10:00 04/26/17 09:59 03/27/17 09:54 100 MLS/HR Aspirin (Aspirin Chew) 81 mg DAILY PO 03/28/17 09:00 04/27/17 08:59 Enteral Nutritional Formula (Impact 1.0 [place]) 1,000 ml UD PRN OG 03/27/17 11:45 04/26/17 11:44 03/27/17 18:20 1,000 ML Fentanyl Citrate 250 ml @ 0 mls/hr Q0M PRN IV 03/27/17 15:15 04/10/17 15:14 Dexmedetomidine HCl 1000 mcg/ Sodium Chloride 250 ml @ 0 mls/hr Q0M PRN IV 03/27/17 16:00 03/31/17 15:59 03/27/17 17:39 19.3 MLS/HR I & O: 24-Hour Column 03/28/17 08:00 Intake Total 1055 ml Output Total 200 ml Balance 855 ml Vital Signs: Date Time Temp Pulse Resp B/P (MAP) Pulse Ox O2 Delivery O2 Flow Rate FiO2 03/27/17 19:20 36.5 59 24 105/66 (79) 100 Mechanical Ventilator 30 03/27/17 19:20 30 03/27/17 19:20 Mechanical Ventilator 30 03/27/17 18:40 30 03/27/17 15:30 Mechanical Ventilator 30 03/27/17 15:30 30 03/27/17 15:30 36.6 68 24 102/66 (78) 100 Mechanical Ventilator 30 03/27/17 14:37 30 03/27/17 12:00 30 03/27/17 12:00 100 Mechanical Ventilator 30 03/27/17 12:00 36.8 104 34 143/78 (99) 100 Mechanical Ventilator 30 03/27/17 11:10 30 03/27/17 08:00 95 Mechanical Ventilator 30 03/27/17 08:00 30 03/27/17 08:00 Mechanical Ventilator 30 03/27/17 08:00 36.8 120 30 150/89 (109) 93 Mechanical Ventilator 30 03/27/17 07:10 30 03/27/17 05:05 30 03/27/17 04:00 Mechanical Ventilator 30 03/27/17 04:00 30 03/27/17 04:00 36.4 98 14 133/87 (102) 90 Mechanical Ventilator 30 03/27/17 02:00 122 12 156/97 (116) 94 Mechanical Ventilator 30 03/27/17 01:50 30 03/27/17 00:01 37.1 115 18 140/94 (109) 95 Mechanical Ventilator 30 03/26/17 23:59 30 03/26/17 23:59 Mechanical Ventilator 30 03/26/17 23:18 30 03/26/17 22:00 119 17 130/95 (107) 95 Mechanical Ventilator 30 03/26/17 20:30 30 03/26/17 20:00 37.0 121 19 145/98 (114) 96 30 03/26/17 20:00 30 12/11/17 20:00 Mechanical Ventilator 30 Laboratory Results: Last 24 Hours Test 03/27/17 05:13 White Blood Count 6.46 K/uL Red Blood Count 3.12 M/uL Hemoglobin 9.6 g/dL Hematocrit 30.1 % Mean Corpuscular Volume 96.5 fL Mean Corpuscular Hemoglobin 30.8 pg Mean Corpuscular Hemoglobin Concent 31.9 g/dl RDW Standard Deviation 52.7 fL RDW Coefficient of Variation 14.8 % Platelet Count 134 K/uL Mean Platelet Volume 12.4 fL Activated Partial Thromboplast Time 32.5 SECONDS Partial Thromboplastin Ratio 1.3 Sodium Level 136 mmol/L Potassium Level 3.8 mmol/L Chloride Level 98 mmol/L Carbon Dioxide Level 29 mmol/L Anion Gap 9.0 mmol/L Blood Urea Nitrogen 28 mg/dl Creatinine 1.41 mg/dl Est Creatinine Clear Calc Drug Dose 39.7 ml/min Estimated GFR () 56.9 Estimated GFR (Non- 49.1 BUN/Creatinine Ratio 19.8 Random Glucose 149 mg/dl Calcium Level 8.0 mg/dl Phosphorus Level 3.3 mg/dl Magnesium Level 2.4 mg/dl
[2017-03-28] VITALS (28 sets, daily range): BP systolic 116–176; BP diastolic 67–103; PULSE 50–130; TEMP 36.6–37.1; O2SAT 88–100
[2017-03-28] MEDS: IPRATROPIUM BROMIDE HFA INHALER INH SCH ×4 (02:10→19:59)
[2017-03-28] MEDS: ALBUTEROL HFA 8 GM INHALER INH SCH ×4 (02:10→19:59)
[2017-03-28] MEDS: METHYLPREDNISOLONE IV 60 MG in SYRINGE 0 ML IV SCH ×4 (04:18→21:06)
[2017-03-28 06:13] LABS: PTT PATIENT 28.7 SECONDS (21.0-31.0)
[2017-03-28 06:28] LABS: CALCIUM 7.5 mg/dl (8.5-10.1); CREATININE 1.61 mg/dl (0.60-1.40); POTASSIUM 4.1 mmol/L (3.5-5.1)
[2017-03-28 06:39] LABS: HEMATOCRIT 28.9 % (42-52); HEMOGLOBIN 9.3 g/dL (14.0-18.0); MEAN CELL VOLUME 96.7 fL (80-100); MEAN CORPUSCULAR HEMOGLOBIN 31.1 pg (25-34); MEAN CORPUSCULAR HGB CONC 32.2 g/dl (32-36); MEAN PLATELET VOLUME 12.6 fL (7.4-10.4); NUCLEATED RED BLOOD CELL ABS 0.02 K/uL (0-0); PLATELET COUNT 124 K/uL (130-400); RED CELL DISTRIBUTION WIDTH CV 14.9 % (11.5-14.5); RED CELL DISTRIBUTION WIDTH SD 52.8 fL (36.4-46.3); WHITE BLOOD COUNT 4.14 K/uL (4.8-10.8)
[2017-03-28 06:43] LABS: IG# 0.01 K/uL (0.00-0.02); LYMPH % 5.3 %; LYMPH ABS # 0.22 K/uL (1.2-3.4); MONO % 5.6 %; MONO ABS # 0.23 K/uL (0.11-0.59); NEUT % 88.9 %; NEUT ABS # 3.68 K/uL (1.4-6.5)
[2017-03-28] MEDS: SODIUM CHLORIDE 0.9% 1000ML 1,000 ML IV SCH ×2 (08:00→15:23)
[2017-03-28] MEDS: TRIAMCINOLONE ACET 0.1% CR 15 GM TUBE EXT SCH ×2 (08:01→21:05)
[2017-03-28] MEDS: ASPIRIN 81 MG CHEW PO SCH (08:01)
[2017-03-28] MEDS: HEPARIN SOD 5000 UNIT/0.5 ML CARP SQ SCH ×2 (08:04→21:12)
[2017-03-28] MEDS ORDERED: NURSING VERBAL MED ORDER ONE (10:15)
[2017-03-28] MEDS: PANTOprazole INJ 40 MG in SYRINGE 0 ML IV SCH (10:23)
[2017-03-28] MEDS ORDERED: SODIUM CHLORIDE 0.9% 10ML FLUSH IV ONE (10:32)
[2017-03-28] MEDS ORDERED: FENTANYL CITRATE INJ 50 MCG/1 ML 2 ML VIAL IV PRN (14:30)
[2017-03-28] MEDS: FENTANYL CITRATE INJ 50 MCG/1 ML 2 ML VIAL IV PRN ×4 (15:22→23:10)
--- NOTE | 2017-03-28 15:24 | Critical Care Progress Note ---
Critical Care Progress Note Date of Service Mar 28, 2017. Attending Dr. Lares Subjective The patient remains vented and review of system was not reliably obtainable. The patient denies any pain but occasionally he is dyssynchronous with the ventilator. Objective ROS is not obtainable. HR tachycardia. S1S2 RRR. distant BS bilaterally. abdomen is benign. multiple sc hematomas. neuro non focal. awake and following commands properly. His physical exam on 03/27/2017 revealed elderly gentleman does not appear to be in any distress currently vented. He sedated with Precedex. Heart examination S1-S2 regular rate and rhythm. The patient did have an episode of SVT requiring adenosine however P-wave was obvious and the patient had normal sinus rhythm. Abdomen is benign. No edema. Neurologically with weakness on the right side. On 03/28/2017, the patient failed CPAP trial, the patient was taken off the sedation prior to the trial. His physical exam reveals occasional tachycardia was sinus rhythm. Heart examination S1-S2 regular rate and rhythm. Distant breath sounds bilaterally. Abdomen is benign no edema. Neurologically the patient remains the same. Current SOFA Score SOFA Score Response (Comments) Value PaO2/FiO2 (mmHg) < 400 1 SaO2 / FIO2 221 - 301 1 Platelets (x10) > 150 0 Bilirubin (mg/dL) < 1.2 0 [place] Coma Score 10 - 12 2 Level of Hypotension No Hypotension 0 Creatinine (mg/dL) < 1.2 0 Total 4 Assessment & Plan #1 acute on chronic respiratory failure. Hypercapnic and hypoxic. #2 severe COPD with bullous disease. Gold level IV. #3 right lower lobe pneumonia. Plan: #1 continue to do CPAP trial. #2 keep the patient off sedation and will use when necessary injection. #3 continue with steroids and bronchitis. #4 continue current antibiotics. #5 DVT and GI prophylaxis. #6 hematomas and left thigh and right elbow resolving. #7 awaiting for the family to arrive from a distance. The patient has a grim prognosis. Decision for hospice has been brought up to them. Discussed with the staff in details. Critical care time spent with the patient was 45 minutes. Consults & Procedures Consultants: neurology. Procedures: none today. Data Medications: Current Inpatient Medications Medications (Trade) Dose Ordered Sig/[place] Route Start Time Stop Time Status Last Admin Dose Admin Acetaminophen (Tylenol Tab) 650 mg Q4H PRN PO 03/18/17 20:30 04/17/17 20:29 03/26/17 08:50 650 MG Triamcinolone Acetonide (Kenalog 0.1% Cream) 1 appln BID EXT 03/18/17 21:00 04/17/17 20:59 03/28/17 08:01 1 APPLN Miscellaneous Information (Order Awaiting Action) 1 ea QS N/A 03/19/17 00:00 04/18/17 00:00 Fluticasone Propionate (Flonase Nasal [place]) 1 sprays DAILY NA 03/20/17 09:00 04/19/17 08:59 Future Hold 03/24/17 07:44 1 SPRAYS Budesonide/ Formoterol Fumarate (Symbicort 160/ 4.5 Inh) 2 puffs BID INH 03/20/17 09:00 04/19/17 08:59 Future Hold 03/24/17 20:52 2 PUFFS Albuterol/ Ipratropium (Combivent Respimat Inh) 1 puffs QID INH 03/21/17 10:15 04/19/17 08:44 Future Hold 03/24/17 20:52 1 PUFFS Sodium Chloride ([place] Nasal [place]) 1 sprays PRN PRN NA 03/22/17 02:15 04/21/17 02:14 Future Hold Enteral Nutritional Formula (Boost) 1 can BIDM PO 03/22/17 17:00 04/21/17 16:59 Future Hold 03/24/17 16:15 1 CAN Guaifenesin (Organidin Nr Tab) 200 mg Q4 PRN PO 03/25/17 00:00 04/24/17 00:00 Future Hold 03/24/17 22:15 200 MG Fentanyl Citrate (Fentanyl Inj) 50 mcg Q1H PRN IV 03/25/17 05:15 04/08/17 05:14 03/27/17 09:52 50 MCG Pantoprazole Sodium 40 mg/ Syringe 10 ml @ 5 mls/min DAILY@11 IV 03/26/17 11:00 04/25/17 10:59 03/28/17 10:23 5 MLS/MIN Methylprednisolone Sodium Succinate 60 mg/Syringe 0.96 ml @ 1.5 mls/min Q6H IV 03/26/17 10:00 04/25/17 09:59 03/28/17 10:22 1.5 MLS/MIN Ceftriaxone Sodium 1 gm/ Dextrose 50 ml @ 100 mls/hr DAILY@1800 IV 03/26/17 18:30 04/02/17 18:29 03/27/17 17:31 100 MLS/HR Azithromycin 500 mg/Dextrose 255 ml @ 125 mls/hr Q24H IV 03/26/17 19:00 04/02/17 18:59 03/27/17 18:20 125 MLS/HR Heparin Sodium (Porcine) (Heparin Sq 5000 Unit/0.5ml) 5,000 unit Q12 SQ 03/26/17 21:00 04/25/17 20:59 03/28/17 08:04 5,000 UNIT Ipratropium [place] (Atrovent Hfa Inhaler) 4 puffs Q6R INH 03/27/17 03:00 04/26/17 02:59 03/28/17 07:10 4 PUFFS Albuterol (Ventolin Hfa Inhaler) 4 puffs Q6R INH 03/27/17 03:00 04/26/17 02:59 03/28/17 07:10 4 PUFFS Sodium Chloride 1,000 ml @ 100 mls/hr Q10H IV 03/27/17 10:00 04/26/17 09:59 03/28/17 08:00 100 MLS/HR Aspirin (Aspirin Chew) 81 mg DAILY PO 03/28/17 09:00 04/27/17 08:59 03/28/17 08:01 81 MG Enteral Nutritional Formula (Impact 1.0 [place]) 1,000 ml UD PRN OG 03/27/17 11:45 04/26/17 11:44 03/27/17 18:20 1,000 ML Fentanyl Citrate (Fentanyl Inj) 25 mcg Q6H PRN IV 03/28/17 14:30 04/11/17 14:29 I & O: 24-Hour Column 03/29/17 07:59 Intake Total 1100 ml Output Total 125 ml Balance 975 ml Vital Signs: Date Time Temp Pulse Resp B/P (MAP) Pulse Ox O2 Delivery O2 Flow Rate FiO2 03/28/17 14:00 114 28 156/90 (112) 100 Mechanical Ventilator 30 03/28/17 12:00 37.0 124 27 176/97 (123) 89 CPAP 03/28/17 12:00 30 03/28/17 12:00 88 Mechanical Ventilator 30 03/28/17 11:35 30 03/28/17 10:00 57 12 116/67 (83) 98 Mechanical Ventilator 30 03/28/17 08:00 99 Mechanical Ventilator 30 03/28/17 08:00 30 03/28/17 08:00 Mechanical Ventilator 30 03/28/17 08:00 36.6 50 12 100 Mechanical Ventilator 30 03/28/17 07:10 30 03/28/17 06:00 53 12 126/74 (91) 100 Mechanical Ventilator 30 03/28/17 05:15 30 03/28/17 04:00 Mechanical Ventilator 30 03/28/17 04:00 30 03/28/17 04:00 37.1 55 12 131/75 (93) 99 Mechanical Ventilator 30 03/28/17 02:23 30 03/28/17 02:00 55 12 116/67 (83) 100 Mechanical Ventilator 30 03/28/17 00:01 37.1 54 12 118/71 (87) 100 Mechanical Ventilator 30 03/27/17 23:59 100 Mechanical Ventilator 30 03/27/17 23:59 30 03/27/17 22:35 30 03/27/17 22:00 36.8 56 22 116/70 (85) 100 Mechanical Ventilator 30 03/27/17 20:05 30 03/27/17 19:20 36.5 59 24 105/66 (79) 100 Mechanical Ventilator 30 03/27/17 19:20 30 03/27/17 19:20 Mechanical Ventilator 30 03/27/17 18:40 30 03/27/17 15:30 Mechanical Ventilator 30 03/27/17 15:30 30 03/27/17 15:30 36.6 68 24 102/66 (78) 100 Mechanical Ventilator 30 Laboratory Results: Last 24 Hours Test 03/27/17 20:15 03/27/17 23:50 03/28/17 05:11 03/28/17 05:16 Bedside Glucose 155 mg/dl White Blood Count 4.14 K/uL Red Blood Count 2.99 M/uL Hemoglobin 9.3 g/dL Hematocrit 28.9 % Mean Corpuscular Volume 96.7 fL Mean Corpuscular Hemoglobin 31.1 pg Mean Corpuscular Hemoglobin Concent 32.2 g/dl Platelet Count 124 K/uL Mean Platelet Volume 12.6 fL Neutrophils (%) (Auto) 88.9 % Lymphocytes (%) (Auto) 5.3 % Monocytes (%) (Auto) 5.6 % Eosinophils (%) (Auto) 0.0 % Basophils (%) (Auto) 0.0 % Neutrophils # (Auto) 3.68 K/uL Lymphocytes # (Auto) 0.22 K/uL Monocytes # (Auto) 0.23 K/uL Eosinophils # (Auto) 0.00 K/uL Basophils # (Auto) 0.00 K/uL RDW Standard Deviation 52.8 fL RDW Coefficient of Variation 14.9 % Immature Granulocyte % (Auto) 0.2 % Immature Granulocyte # (Auto) 0.01 K/uL Nucleated RBC Absolute Count (auto) 0.02 K/uL Nucleated Red Blood Cells % 0.5 % Large Platelets 1+ Tear Drop Cells 1+ Activated Partial Thromboplast Time 28.7 SECONDS Partial Thromboplastin Ratio 1.1 Sodium Level 137 mmol/L Potassium Level 4.1 mmol/L Chloride Level 101 mmol/L Carbon Dioxide Level 29 mmol/L Anion Gap 7.0 mmol/L Blood Urea Nitrogen 42 mg/dl Creatinine 1.61 mg/dl Est Creatinine Clear Calc Drug Dose 35.4 ml/min Estimated GFR () 48.4 Estimated GFR (Non- 41.8 BUN/Creatinine Ratio 25.9 Random Glucose 173 mg/dl Calcium Level 7.5 mg/dl Blood Gas Sample Site L Radial Bedside Blood Gas pH (LAB) 7.40 Bedside Blood Gas pCO2 (LAB) 47 mmHg Bedside Blood Gas pO2 (LAB) 74 mmHg Bedside Blood Gas HCO3 (LAB) 29 meq/L Bedside Blood Gas Total CO2 30 mEq/l Bedside Blood Gas Base Excess (LAB) 4.0 meq/L Bedside Blood Gas O2 Saturation 95.0 % Howard Test NA Oxygen Delivery Device Ventilator Bedside Oxygen Rate (breaths/min) 12 Blood Gas Minute Ventilation 7.1 Bedside FiO2 30 % Blood Gas [place] Volume 550 Blood Gas PEEP 5 Test 03/28/17 06:13 Bedside Glucose 198 mg/dl
--- NOTE | 2017-03-28 16:37 | PROGRESS NOTE ---
DATE: 03/28/2017 SUBJECTIVE: Meek looks much better today. He is not sedated. He is following commands, will squeeze my hands. I do not see any evidence for right hemiparesis. There is no head or eye deviation and from a neurologic point of view, there is really little focal. Unfortunately, this man's pulmonary status is quite precarious. 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 He apparently failed the CPAP test already today, according to Pamela Moerno, and the only other option would be chronic ventilator support. I am not sure he or the family will want to go for this. At present, neurology is going to sign off. 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 He does not need anticonvulsants. The MRI scan in my opinion was totally consistent with an area of laminar necrosis or reperfusion after this arrest and the concept of this was posterior reversible encephalopathy syndrome just is not holding any water. JOSÉ MANUEL
[2017-03-28] MEDS: CEFTRIAXONE SOD INJ 1 GM in DEXTROSE 5% ADD-VANTAGE 50ML 50 ML IV SCH (17:02)
[2017-03-28] MEDS: AZITHROMYCIN IV 500 MG in DEXTROSE 5% 250ML 250 ML IV SCH (19:09)
[2017-03-28] MEDS: ALPRAZOLAM 0.5 MG TAB PO SCH (19:44)
--- NOTE | 2017-03-28 20:13 | Progress Note ---
Medicine Progress Note Date & Time of Visit: Mar 28, 2017 at 1600. Subjective 71 yo M admitted with COPD exacerbation from PCP office, suffered a hypoxic event after noncompliance with BIPAP on 03/25 and developed ?seizure activity. He was treated with Ativan and subsequently intubated in the ICU. He remains vented and has continued to fail CPAP trials of wean. CPAP trial today was unsuccessful. Pt is not sedated but nods his head yes to most questions- unreliable history. Discussed case with ICU physician who plans a family conference in the next 1-2 days to discuss goals of care. Objective Last 8 Hrs Date Time Temp Pulse Resp B/P (MAP) Pulse Ox O2 Delivery O2 Flow Rate FiO2 03/28/17 15:45 Mechanical Ventilator 30 03/28/17 15:45 30 03/28/17 15:45 36.8 118 26 142/87 (105) 99 Mechanical Ventilator 30 03/28/17 14:35 30 03/28/17 14:00 114 28 156/90 (112) 100 Mechanical Ventilator 30 03/28/17 12:00 37.0 124 27 176/97 (123) 89 CPAP 03/28/17 12:00 30 03/28/17 12:00 88 Mechanical Ventilator 30 03/28/17 11:35 30 03/28/17 10:00 57 12 116/67 (83) 98 Mechanical Ventilator 30 Physical Exam: GEN: WNWD, intubated with eyes open. Able to follow some instructions like making two thumbs up. HEENT: NC/AT, PERRL, normal sclerae, MMM, ETT in place. OGT in place. CARDIO: reg rate, S1/2 heard without m/g/r LUNGS: CTA bilaterally, no crackles, rales or wheezes, limited exam as patient unable to follow instruction and has limited mobility. ABD: soft, non-distended, no guarding. +BS EXTREMITY: RP and DP palpable 2+ bilat, no LE swelling or edema, extremities are warm and well-perfused SKIN: warm and dry, multiple areas of ecchymosis on arms. Laboratory Results: 03/28/17 05:11 Red Blood Count 2.99, Mean Corpuscular Volume 96.7, Mean Corpuscular Hemoglobin 31.1, Mean Corpuscular Hemoglobin Concent 32.2, Mean Platelet Volume 12.6, Neutrophils (%) (Auto) 88.9, Lymphocytes (%) (Auto) 5.3, Monocytes (%) (Auto) 5.6, Eosinophils (%) (Auto) 0.0, Basophils (%) (Auto) 0.0, Neutrophils # (Auto) 3.68, Lymphocytes # (Auto) 0.22, Monocytes # (Auto) 0.23, Eosinophils # (Auto) 0.00, Basophils # (Auto) 0.00 03/28/17 05:11 Test 03/18/17 00:00 03/18/17 17:25 03/18/17 20:14 03/19/17 00:53 Influenza Type A (RT-PCR) Neg for Influ A (NEG) Influenza Type A Antigen Neg for Influ A (NEG) Influenza Type B Antigen Neg for Influ B (NEG) Influenza Type B (RT-PCR) Neg for Influ B (NEG) Giant Platelets 1+ Polychromasia 1+ Peripheral Blood Smear Path Consult Lactic Acid Level 0.6 mmol/L (0.4-2.0) Anisocytosis PRESENT Absolute Reticulocyte Count 0.06 10^6/uL (0.02-0.10) Percent Reticulocyte Count 2.6 % (0.5-2.0) Ferritin 178.5 ng/ml (8.0-388.0) Vitamin B12 Level 559 pg/mL (211-911) Folate 10.95 ng/mL (>5.38) Test 03/20/17 05:43 03/20/17 10:03 03/22/17 05:14 03/23/17 07:22 Basophilic Stippling OCCASIONAL Iron Level 36 mcg/dl (35-175) Total Iron Binding Capacity 182 mcg/dl (250-450) Transferrin 123 mg/dl (200-360) Transferrin % Saturation 21 % (20-50) Arterial Blood pH 7.30 (7.35-7.45) Arterial Blood Partial Pressure CO2 61 mmHg (35-46) Arterial Blood Partial Pressure O2 65 mm/Hg (80-95) Arterial Blood HCO3 30 mmol/L (19-24) Arterial Blood Oxygen Saturation 91.5 % (90-95) Arterial Blood Base Excess 2.7 mEq/L (-9-1.8) Arterial Blood Gas Delivery 3 L Howard Test POS (POS) Platelet Estimate DECREASED Hypochromasia PRESENT Prostate Specific Antigen 1.680 ng/ml (0.000-4.000) Test 03/23/17 10:47 03/24/17 05:20 03/24/17 10:25 03/25/17 04:53 Urine Color YELLOW Urine Appearance CLEAR (CLEAR) Urine pH 7.5 (4.5-7.5) Urine Specific Mart 1.018 (1.000-1.030) Urine Protein NEG (NEG) Urine Glucose (UA) NEG (NEG) Urine Ketones NEG (NEG) Urine Occult Blood NEG (NEG) Urine Nitrite NEG (NEG) Urine Bilirubin NEG (NEG) Urine Urobilinogen NEG (NEG) Urine Leukocyte Esterase TRACE (NEG) Urine WBC (Auto) 1-5 /hpf (0-5) Urine RBC (Auto) 0-4 /hpf (0-4) Urine Hyaline Casts (Auto) 1-5 /lpf (0-5) Urine Epithelial Cells (Auto) >30 /lpf (0-5) Urine Bacteria (Auto) NEG (NEG) Urine Mucus PRESENT (NONE PRSENT) Urine Yeast (Auto) BUDDING (NONE PRSENT) Red Blood Cell Morphology Unremarkable Stool Occult Blood NEGATIVE (NEGATIVE) Direct Bilirubin 0.1 mg/dl (0-0.2) Test 03/25/17 06:49 03/25/17 16:07 03/25/17 21:59 03/27/17 05:13 Total Bilirubin 0.6 mg/dl (0.2-1) Aspartate Amino Transf (AST/SGOT) 14 U/L (15-37) Alanine Aminotransferase (ALT/SGPT) 16 U/L (12-78) Alkaline Phosphatase 51 U/L (45-117) Total Protein 5.4 gm/dl (6.4-8.2) Albumin 2.8 gm/dl (3.4-5.0) Globulin 2.6 gm/dl (2.5-4.0) Albumin/Globulin Ratio 1.1 (0.9-2) Prothrombin Time 10.3 SECONDS (9.0-12.0) Prothromb Time International Ratio 1.0 (0.9-1.1) Troponin I 1.410 ng/ml (0-0.045) Phosphorus Level 3.3 mg/dl (2.5-4.9) Magnesium Level 2.4 mg/dl (1.8-2.4) Test 03/28/17 05:11 12/13/17 05:16 03/28/17 11:18 White Blood Count 4.14 K/uL (4.8-10.8) Red Blood Count 2.99 M/uL (4.7-6.1) Hemoglobin 9.3 g/dL (14.0-18.0) Hematocrit 28.9 % (42-52) Mean Corpuscular Volume 96.7 fL (80-100) Mean Corpuscular Hemoglobin 31.1 pg (25-34) Mean Corpuscular Hemoglobin Concent 32.2 g/dl (32-36) Platelet Count 124 K/uL (130-400) Mean Platelet Volume 12.6 fL (7.4-10.4) Neutrophils (%) (Auto) 88.9 % Lymphocytes (%) (Auto) 5.3 % Monocytes (%) (Auto) 5.6 % Eosinophils (%) (Auto) 0.0 % Basophils (%) (Auto) 0.0 % Neutrophils # (Auto) 3.68 K/uL (1.4-6.5) Lymphocytes # (Auto) 0.22 K/uL (1.2-3.4) Monocytes # (Auto) 0.23 K/uL (0.11-0.59) Eosinophils # (Auto) 0.00 K/uL (0-0.5) Basophils # (Auto) 0.00 K/uL (0-0.2) RDW Standard Deviation 52.8 fL (36.4-46.3) RDW Coefficient of Variation 14.9 % (11.5-14.5) Immature Granulocyte % (Auto) 0.2 % Immature Granulocyte # (Auto) 0.01 K/uL (0.00-0.02) Nucleated RBC Absolute Count (auto) 0.02 K/uL (0-0) Nucleated Red Blood Cells % 0.5 % Large Platelets 1+ Tear Drop Cells 1+ Activated Partial Thromboplast Time 28.7 SECONDS (21.0-31.0) Partial Thromboplastin Ratio 1.1 Anion Gap 7.0 mmol/L (3-11) Est Creatinine Clear Calc Drug Dose 35.4 ml/min Estimated GFR () 48.4 Estimated GFR (Non- 41.8 BUN/Creatinine Ratio 25.9 (10-20) Calcium Level 7.5 mg/dl (8.5-10.1) Blood Gas Sample Site L Radial Bedside Blood Gas pH (LAB) 7.40 (7.35-7.45) Bedside Blood Gas pCO2 (LAB) 47 mmHg (35-46) Bedside Blood Gas pO2 (LAB) 74 mmHg (80-95) Bedside Blood Gas HCO3 (LAB) 29 meq/L (19-24) Bedside Blood Gas Total CO2 30 mEq/l (24-31) Bedside Blood Gas Base Excess (LAB) 4.0 meq/L (-9-1.8) Bedside Blood Gas O2 Saturation 95.0 % (90-95) Howard Test NA Oxygen Delivery Device Ventilator Bedside Oxygen Rate (breaths/min) 12 Blood Gas Minute Ventilation 7.1 Bedside FiO2 30 % Blood Gas Tidal Volume 550 Blood Gas PEEP 5 Bedside Glucose 263 mg/dl (70-99) Date/Time Source Procedure Growth Status 03/18/17 20:10 Blood Blood Culture - Final NO GROWTH Complete 03/25/17 09:20 Nasal MRSA DNA Surveillance Screen - Final Specimen Negative for MRSA by DNA Probe Complete 03/21/17 13:30 Sputum Expectorated Sputum Gram Stain - Final Complete 03/21/17 13:30 Sputum Culture - Final Treva Albicans Complete 03/23/17 10:47 Urine , Clean Catch Urine Culture - Final Treva Albicans Complete Last 24 Hours Test 03/27/17 20:15 03/27/17 23:50 03/28/17 05:11 03/28/17 05:16 Bedside Glucose 155 mg/dl White Blood Count 4.14 K/uL Red Blood Count 2.99 M/uL Hemoglobin 9.3 g/dL Hematocrit 28.9 % Mean Corpuscular Volume 96.7 fL Mean Corpuscular Hemoglobin 31.1 pg Mean Corpuscular Hemoglobin Concent 32.2 g/dl Platelet Count 124 K/uL Mean Platelet Volume 12.6 fL Neutrophils (%) (Auto) 88.9 % Lymphocytes (%) (Auto) 5.3 % Monocytes (%) (Auto) 5.6 % Eosinophils (%) (Auto) 0.0 % Basophils (%) (Auto) 0.0 % Neutrophils # (Auto) 3.68 K/uL Lymphocytes # (Auto) 0.22 K/uL Monocytes # (Auto) 0.23 K/uL Eosinophils # (Auto) 0.00 K/uL Basophils # (Auto) 0.00 K/uL RDW Standard Deviation 52.8 fL RDW Coefficient of Variation 14.9 % Immature Granulocyte % (Auto) 0.2 % Immature Granulocyte # (Auto) 0.01 K/uL Nucleated RBC Absolute Count (auto) 0.02 K/uL Nucleated Red Blood Cells % 0.5 % Large Platelets 1+ Tear Drop Cells 1+ Activated Partial Thromboplast Time 28.7 SECONDS Partial Thromboplastin Ratio 1.1 Sodium Level 137 mmol/L Potassium Level 4.1 mmol/L Chloride Level 101 mmol/L Carbon Dioxide Level 29 mmol/L Anion Gap 7.0 mmol/L Blood Urea Nitrogen 42 mg/dl Creatinine 1.61 mg/dl Est Creatinine Clear Calc Drug Dose 35.4 ml/min Estimated GFR () 48.4 Estimated GFR (Non- 41.8 BUN/Creatinine Ratio 25.9 Random Glucose 173 mg/dl Calcium Level 7.5 mg/dl Blood Gas Sample Site L Radial Bedside Blood Gas pH (LAB) 7.40 Bedside Blood Gas pCO2 (LAB) 47 mmHg Bedside Blood Gas pO2 (LAB) 74 mmHg Bedside Blood Gas HCO3 (LAB) 29 meq/L Bedside Blood Gas Total CO2 30 mEq/l Bedside Blood Gas Base Excess (LAB) 4.0 meq/L Bedside Blood Gas O2 Saturation 95.0 % Howard Test NA Oxygen Delivery Device Ventilator Bedside Oxygen Rate (breaths/min) 12 Blood Gas Minute Ventilation 7.1 Bedside FiO2 30 % Blood Gas Tidal Volume 550 Blood Gas PEEP 5 Test 03/28/17 06:13 Bedside Glucose 198 mg/dl Assessment & Plan 71 yo M admitted with COPD exacerbation from PCP office, suffered a hypoxic event after noncompliance with BIPAP on 03/25 and developed ?seizure activity. He was treated with Ativan and subsequently intubated in the ICU. He remains vented and has continued to fail CPAP trials of wean. CPAP trial today was unsuccessful. Pt is not sedated but nods his head yes to most questions- unreliable history. Discussed case with ICU physician who plans a family conference in the next 1-2 days to discuss goals of care. 1. COPD exacerbation 2/2 RLL pneumonia-Unasyn stopped today and Ceftriaxone and Azithro continued for CAP treatment. Continues on IV steroids and bronchodilators. Poor prognosis-cont mechanical ventilation until extubation possible, or trach/PEG likely remaining on ventilator vs palliative care and terminal extubation. 2. Elevated troponins with new onset cardiomyopathy- Presumed secondary to demand ischemia related to rate and poor pump function. Patient was on heparin for medical treatment of NSTEMI for past couple of days, however, with this consideration and development of ecchymosis, this was discontinued. Cont ASA 81mg PO daily. 3. Esophageal dysmotility-noted on recent Barium swallow. Currently intubated with feedings through OGT. 4. CHASITY-creatinine up to 1.6 from 1.4 yesterday, slightly elevated from baseline 1.0 in 2016 5. Ureteral calculus-5mm obstructing calculus present in distal right ureter noted on CT 03/23. Urology is following and considering stent depending on goals of care. Pt remains vented. No surgical intervention planned at this time while discussing goals of care. 6. Anemia-likely multifactorial related to dilution, acute blood loss 2/2 daily phlebotomy and anemia of chronic disease. No indication for transfusion at this time. DVT proph-heparin Full Code Dispo-uncertain at this time. Palliative Care team is involved and is assisting with family discussions with ICU team. Pamela Moreno DO [facility] Hospitalist Consultants: Dr. Lares-ICU Dr. Jaramillo-Urology Neuro-Dr. Mahoney Procedures: . Current Inpatient Medications: Current Inpatient Medications Medications (Trade) Dose Ordered Sig/Rosemary Route Start Time Stop Time Status Last Admin Dose Admin Acetaminophen (Tylenol Tab) 650 mg Q4H PRN PO 03/18/17 20:30 04/17/17 20:29 03/26/17 08:50 650 MG Triamcinolone Acetonide (Kenalog 0.1% Cream) 1 appln BID EXT 03/18/17 21:00 04/17/17 20:59 03/28/17 08:01 1 APPLN Miscellaneous Information (Order Awaiting Action) 1 ea QS N/A 03/19/17 00:00 04/18/17 00:00 Fluticasone Propionate (Flonase Nasal [place]) 1 sprays DAILY NA 03/20/17 09:00 04/19/17 08:59 Future Hold 03/24/17 07:44 1 SPRAYS Budesonide/ Formoterol Fumarate (Symbicort 160/ 4.5 Inh) 2 puffs BID INH 03/20/17 09:00 04/19/17 08:59 Future Hold 03/24/17 20:52 2 PUFFS Albuterol/ Ipratropium (Combivent Respimat Inh) 1 puffs QID INH 03/21/17 10:15 04/19/17 08:44 Future Hold 03/24/17 20:52 1 PUFFS Sodium Chloride ([place] Nasal [place]) 1 sprays PRN PRN NA 03/22/17 02:15 04/21/17 02:14 Future Hold Enteral Nutritional Formula (Boost) 1 can BIDM PO 03/22/17 17:00 04/21/17 16:59 Future Hold 03/24/17 16:15 1 CAN Guaifenesin (Organidin Nr Tab) 200 mg Q4 PRN PO 03/25/17 00:00 04/24/17 00:00 Future Hold 03/24/17 22:15 200 MG Fentanyl Citrate (Fentanyl Inj) 50 mcg Q1H PRN IV 03/25/17 05:15 04/08/17 05:14 03/28/17 17:02 50 MCG Pantoprazole Sodium 40 mg/ Syringe 10 ml @ 5 mls/min DAILY@11 IV 03/26/17 11:00 04/25/17 10:59 03/28/17 10:23 5 MLS/MIN Methylprednisolone Sodium Succinate 60 mg/Syringe 0.96 ml @ 1.5 mls/min Q6H IV 03/26/17 10:00 04/25/17 09:59 03/28/17 16:00 1.5 MLS/MIN Ceftriaxone Sodium 1 gm/ Dextrose 50 ml @ 100 mls/hr DAILY@1800 IV 03/26/17 18:30 04/02/17 18:29 03/28/17 17:02 100 MLS/HR Azithromycin 500 mg/Dextrose 255 ml @ 125 mls/hr Q24H IV 03/26/17 19:00 04/02/17 18:59 03/27/17 18:20 125 MLS/HR Heparin Sodium (Porcine) (Heparin Sq 5000 Unit/0.5ml) 5,000 unit Q12 SQ 03/26/17 21:00 04/25/17 20:59 03/28/17 08:04 5,000 UNIT Ipratropium [place] (Atrovent Hfa Inhaler) 4 puffs Q6R INH 03/27/17 03:00 04/26/17 02:59 03/28/17 14:35 4 PUFFS Albuterol (Ventolin Hfa Inhaler) 4 puffs Q6R INH 03/27/17 03:00 04/26/17 02:59 03/28/17 14:35 4 PUFFS Sodium Chloride 1,000 ml @ 100 mls/hr Q10H IV 03/27/17 10:00 04/26/17 09:59 03/28/17 15:23 100 MLS/HR Aspirin (Aspirin Chew) 81 mg DAILY PO 03/28/17 09:00 04/27/17 08:59 03/28/17 08:01 81 MG Enteral Nutritional Formula (Impact 1.0 [place]) 1,000 ml UD PRN OG 03/27/17 11:45 04/26/17 11:44 03/27/17 18:20 1,000 ML Fentanyl Citrate (Fentanyl Inj) 25 mcg Q6H PRN IV 03/28/17 14:30 04/11/17 14:29
[2017-03-28] MEDS: HYDROmorphone INJ 0.5 MG/0.5 ML SYR IV PRN (20:26)
[2017-03-29] VITALS (22 sets, daily range): BP systolic 133–164; BP diastolic 77–118; PULSE 93–131; TEMP 35.2–37.4; O2SAT 94–100
[2017-03-29] MEDS: HYDROmorphone INJ 0.5 MG/0.5 ML SYR IV PRN ×2 (00:36→06:00)
[2017-03-29] MEDS: IMPACT LIQ 1000 ML BAG OG PRN (01:45)
[2017-03-29] MEDS: ALBUTEROL HFA 8 GM INHALER INH SCH ×3 (02:02→13:55)
[2017-03-29] MEDS: IPRATROPIUM BROMIDE HFA INHALER INH SCH ×3 (02:02→13:55)
[2017-03-29] MEDS: SODIUM CHLORIDE 0.9% 1000ML 1,000 ML IV SCH ×2 (05:04→12:17)
[2017-03-29] MEDS: METHYLPREDNISOLONE IV 60 MG in SYRINGE 0 ML IV SCH ×2 (05:07→09:09)
[2017-03-29 05:50] LABS: HEMATOCRIT 31.4 % (42-52); HEMOGLOBIN 9.9 g/dL (14.0-18.0); MEAN CELL VOLUME 96.9 fL (80-100); MEAN CORPUSCULAR HEMOGLOBIN 30.6 pg (25-34); MEAN CORPUSCULAR HGB CONC 31.5 g/dl (32-36); MEAN PLATELET VOLUME 12.6 fL (7.4-10.4); PLATELET COUNT 158 K/uL (130-400); RED CELL DISTRIBUTION WIDTH CV 14.8 % (11.5-14.5); RED CELL DISTRIBUTION WIDTH SD 52.6 fL (36.4-46.3); WHITE BLOOD COUNT 9.65 K/uL (4.8-10.8)
[2017-03-29 05:58] LABS: PTT PATIENT 27.3 SECONDS (21.0-31.0)
[2017-03-29] MEDS: ALPRAZOLAM 0.5 MG TAB PO SCH ×3 (06:00→19:34)
[2017-03-29 06:24] LABS: CALCIUM 7.8 mg/dl (8.5-10.1); CREATININE 1.6 mg/dl (0.60-1.40); POTASSIUM 3.5 mmol/L (3.5-5.1)
[2017-03-29 06:25] LABS: PHOSPHORUS 2.7 mg/dl (2.5-4.9)
--- NOTE | 2017-03-29 08:04 | DIAGNOSTIC IMAGING REPORT ---
CHEST ONE VIEW PORTABLE CLINICAL HISTORY: follow up pneumonia dyspnea COMPARISON STUDY: 03/27/2017 FINDINGS: Endotracheal tube 3.2 cm both [place]. Mild stable cardiomegaly. Findings of pulmonary edema unchanged in the prior exam. Emphysematous change with bleb formation overlying the right pulmonary apex is stable. IMPRESSION: 1. Unchanged exam with unchanging findings of pulmonary edema versus bilateral parenchymal infiltrative change. 2. Endotracheal tube 3.2 cm above the nat[place]. The above report was generated using voice recognition software. It may contain grammatical, syntax or spelling errors. Electronically signed by: Sukh England M.D. 03/29/2017 8:03 AM Dictated Date/Time: 03/29/2017 8:01 AM
[2017-03-29] MEDS: TRIAMCINOLONE ACET 0.1% CR 15 GM TUBE EXT SCH ×2 (09:07→21:16)
[2017-03-29] MEDS: HEPARIN SOD 5000 UNIT/0.5 ML CARP SQ SCH ×2 (09:08→21:15)
[2017-03-29] MEDS: ASPIRIN 81 MG CHEW PO SCH (09:09)
[2017-03-29] MEDS: PANTOprazole INJ 40 MG in SYRINGE 0 ML IV SCH (12:16)
--- NOTE | 2017-03-29 14:02 | Critical Care Progress Note ---
Critical Care Progress Note Date of Service Mar 29, 2017. Attending Dr. Lares Subjective The patient remains intubated, anxious at the time, most of his medications has been stopped in the drip form, the patient could not give an answer whether it' s yes or no for him to proceed with further treatment including tracheostomy tube placement. The patient denies any shortness of breath or chest pain. But appeared to be anxious without purposeful answers. I have had a discussion with his son at the bedside and could not reach a decision from him regarding of tracheostomy or not. Objective ROS is not obtainable. HR tachycardia. S1S2 RRR. distant BS bilaterally. abdomen is benign. multiple sc hematomas. neuro non focal. awake and following commands properly. His physical exam on 03/27/2017 revealed elderly gentleman does not appear to be in any distress currently vented. He sedated with Precedex. Heart examination S1-S2 regular rate and rhythm. The patient did have an episode of SVT requiring adenosine however P-wave was obvious and the patient had normal sinus rhythm. Abdomen is benign. No edema. Neurologically with weakness on the right side. On 03/28/2017, the patient failed CPAP trial, the patient was taken off the sedation prior to the trial. His physical exam reveals occasional tachycardia was sinus rhythm. Heart examination S1-S2 regular rate and rhythm. Distant breath sounds bilaterally. Abdomen is benign no edema. Neurologically the patient remains the same. On 03/29/2017, the patient tolerated the CPAP trial with a PSV of 20 and PEEP of 5. No JVP, heart examination S1-S2 regular rate and rhythm. Lungs with distant breath sounds bilaterally, abdomen is benign but appeared distended, no edema. Hematomas has been healing. Neurologically anxious but minimally weak on the right side. Current SOFA Score SOFA Score Response (Comments) Value PaO2/FiO2 (mmHg) < 400 1 SaO2 / FIO2 221 - 301 1 Platelets (x10) > 150 0 Bilirubin (mg/dL) < 1.2 0 Ralph Coma Score 10 - 12 2 Level of Hypotension No Hypotension 0 Creatinine (mg/dL) < 1.2 0 Total 4 Assessment & Plan #1 acute on chronic hypercapnic and hypoxic respiratory failure. #2 right lower lobe pneumonia. #3 COPD, end-stage with bolus disease, Gold level IV. #4 anxiety. #5 developing constipation. #6 altered mental status, resolving slowly. Plan: #1 I will continue to keep the patient off sedatives and narcotic drips. #2 I would use as needed Dilaudid and scheduled Xanax. #3 continue with the CPAP trial as tolerated and wean pressure support over. This time. #4 I will decrease his steroids to 40 mg of Solu-Medrol every 6 hours. #5 continue with tube feeding with impact per nutrition, input appreciated. #6 stop the IV fluid. As a patient tube feeding is at goal. #7. Fentanyl order. #8 change bronchodilators to DuoNeb. #9 administered one dose of Lasix. #10 stop Nasal medication. #11stop Symbicort. #12 continued to have further discussions with the son and the rest of the family in addition to the patient. A decision ultimately needs to be made regarding placing tracheostomy tube with PEG tube versus terminal wean. Other option would be extubating the patient to a BiPAP with no reintubation. #13 appreciated palliative care consult. Case discussed with the staff on rounds details. Critical care time spent with the patient was 45 minutes. Consults & Procedures Consultants: neurology. Procedures: none today. Data Medications: Current Inpatient Medications Medications (Trade) Dose Ordered Sig/Rosemary Route Start Time Stop Time Status Last Admin Dose Admin Acetaminophen (Tylenol Tab) 650 mg Q4H PRN PO 03/18/17 20:30 04/17/17 20:29 03/26/17 08:50 650 MG Triamcinolone Acetonide (Kenalog 0.1% Cream) 1 appln BID EXT 03/18/17 21:00 04/17/17 20:59 03/29/17 09:07 1 APPLN Miscellaneous Information (Order Awaiting Action) 1 ea QS N/A 03/19/17 00:00 04/18/17 00:00 Enteral Nutritional Formula (Boost) 1 can BIDM PO 03/22/17 17:00 04/21/17 16:59 Future Hold 03/24/17 16:15 1 CAN Pantoprazole Sodium 40 mg/ Syringe 10 ml @ 5 mls/min DAILY@11 IV 03/26/17 11:00 04/25/17 10:59 03/29/17 12:16 5 MLS/MIN Ceftriaxone Sodium 1 gm/ Dextrose 50 ml @ 100 mls/hr DAILY@1800 IV 03/26/17 18:30 04/02/17 18:29 03/28/17 17:02 100 MLS/HR Azithromycin 500 mg/Dextrose 255 ml @ 125 mls/hr Q24H IV 03/26/17 19:00 04/02/17 18:59 03/28/17 19:09 125 MLS/HR Heparin Sodium (Porcine) (Heparin Sq 5000 Unit/0.5ml) 5,000 unit Q12 SQ 03/26/17 21:00 04/25/17 20:59 03/29/17 09:08 5,000 UNIT Ipratropium [place] (Atrovent Hfa Inhaler) 4 puffs Q6R INH 03/27/17 03:00 04/26/17 02:59 03/29/17 07:28 4 PUFFS Albuterol (Ventolin Hfa Inhaler) 4 puffs Q6R INH 03/27/17 03:00 04/26/17 02:59 03/29/17 07:28 4 PUFFS Aspirin (Aspirin Chew) 81 mg DAILY PO 03/28/17 09:00 04/27/17 08:59 03/29/17 09:09 81 MG Enteral Nutritional Formula (Impact 1.0 Ramirez) 1,000 ml UD PRN OG 03/27/17 11:45 04/26/17 11:44 03/29/17 01:45 1,000 ML Alprazolam (Xanax Tab) 0.5 mg Q8H PO 03/28/17 19:00 04/27/17 18:59 03/29/17 12:16 0.5 MG Hydromorphone HCl (Dilaudid Inj) 0.5 mg Q4 PRN IV 03/28/17 19:00 04/11/17 18:59 03/29/17 06:00 0.5 MG Methylprednisolone Sodium Succinate 40 mg/Syringe 0.64 ml @ 1.5 mls/min Q6H IV 03/29/17 16:00 04/25/17 09:59 Vital Signs: Date Time Temp Pulse Resp B/P (MAP) Pulse Ox O2 Delivery O2 Flow Rate FiO2 03/29/17 12:00 95 CPAP Mechanical Ventilator 03/29/17 12:00 118 22 155/88 (110) 97 CPAP Mechanical Ventilator 03/29/17 11:06 30 03/29/17 10:43 30 03/29/17 10:00 108 17 156/109 (125) 99 Mechanical Ventilator 30 03/29/17 08:00 Mechanical Ventilator 30 03/29/17 08:00 30 03/29/17 08:00 35.2 110 15 151/111 (124) 95 Mechanical Ventilator 30 03/29/17 08:00 100 Mechanical Ventilator 03/29/17 07:29 30 03/29/17 06:01 116 17 164/118 (133) 98 03/29/17 05:10 30 03/29/17 05:01 107 15 160/99 (119) 99 03/29/17 04:01 115 11 157/115 (129) 97 03/29/17 04:00 30 03/29/17 04:00 96 Mechanical Ventilator 30 03/29/17 03:01 93 12 148/98 (115) 99 03/29/17 02:02 30 03/29/17 02:00 104 15 156/91 (112) 95 Mechanical Ventilator 30 03/29/17 00:01 37.3 96 13 145/90 (108) 97 Mechanical Ventilator 30 03/28/17 23:59 97 Mechanical Ventilator 30 03/28/17 23:59 30 03/28/17 23:00 30 03/28/17 22:01 91 12 135/80 (98) 99 03/28/17 22:00 87 12 100 03/28/17 22:00 36.8 91 14 135/80 (98) 97 Mechanical Ventilator 30 03/28/17 21:01 98 15 135/92 (106) 91 03/28/17 21:00 112 12 100 03/28/17 20:03 30 03/28/17 20:01 121 14 138/89 (105) 97 03/28/17 20:00 122 18 98 03/28/17 19:29 30 03/28/17 19:29 Mechanical Ventilator 30 03/28/17 19:29 36.8 111 16 158/97 (117) 99 Mechanical Ventilator 30 03/28/17 19:01 129 19 158/97 (117) 95 03/28/17 19:00 130 15 92 03/28/17 18:47 36.8 129 32 145/91 (109) 99 Mechanical Ventilator 30 03/28/17 18:01 112 13 145/91 (109) 99 03/28/17 18:00 110 13 100 03/28/17 17:50 30 03/28/17 17:01 124 20 152/103 (119) 93 03/28/17 17:00 128 17 97 03/28/17 16:01 95 12 138/76 (96) 99 03/28/17 16:00 97 13 100 03/28/17 15:45 Mechanical Ventilator 30 03/28/17 15:45 30 03/28/17 15:45 36.8 118 26 142/87 (105) 99 Mechanical Ventilator 30 03/28/17 15:02 126 22 142/87 (105) 89 03/28/17 15:00 123 22 100 03/28/17 14:35 30 03/28/17 14:00 114 28 156/90 (112) 100 Mechanical Ventilator 30 Laboratory Results: Last 24 Hours Test 03/28/17 23:41 03/29/17 05:18 03/29/17 06:23 Bedside Glucose 194 mg/dl 168 mg/dl White Blood Count 9.65 K/uL Red Blood Count 3.24 M/uL Hemoglobin 9.9 g/dL Hematocrit 31.4 % Mean Corpuscular Volume 96.9 fL Mean Corpuscular Hemoglobin 30.6 pg Mean Corpuscular Hemoglobin Concent 31.5 g/dl RDW Standard Deviation 52.6 fL RDW Coefficient of Variation 14.8 % Platelet Count 158 K/uL Mean Platelet Volume 12.6 fL Activated Partial Thromboplast Time 27.3 SECONDS Partial Thromboplastin Ratio 1.1 Sodium Level 139 mmol/L Potassium Level 3.5 mmol/L Chloride Level 103 mmol/L Carbon Dioxide Level 32 mmol/L Anion Gap 4.0 mmol/L Blood Urea Nitrogen 54 mg/dl Creatinine 1.60 mg/dl Est Creatinine Clear Calc Drug Dose 37.2 ml/min Estimated GFR () 48.8 Estimated GFR (Non- 42.1 BUN/Creatinine Ratio 33.5 Random Glucose 163 mg/dl Calcium Level 7.8 mg/dl Phosphorus Level 2.7 mg/dl Magnesium Level 2.5 mg/dl
[2017-03-29] MEDS ORDERED: POTASSIUM CHLORIDE 20 MEQ/15 ML UDC PO STA (14:05)
[2017-03-29] MEDS ORDERED: PHARMACY GLYCEMIC MGMT CONSULT PRN (14:15)
[2017-03-29] MEDS ORDERED: FUROSEMIDE INJ 40 MG in SYRINGE 0 ML IV ONE (14:30)
--- NOTE | 2017-03-29 15:16 | Pharmacy Progress Note ---
Glycemic Control Intl Consult Date of Service Mar 29, 2017. Scope Glycemic Pharmacist consulted by Dr Lares on 03/29/17 for glycemic control and to write orders per [facility] inpatient glycemic control protocol Objective Weight (Kilograms): 63.900 Accuchecks BSG (last 24hrs): Test 03/28/17 23:41 03/29/17 05:18 03/29/17 06:23 Bedside Glucose 194 mg/dl (70-99) 168 mg/dl (70-99) Random Glucose 163 mg/dl (70-99) Laboratory Data (last 24hrs) Test 03/29/17 05:18 Anion Gap 4.0 mmol/L BUN/Creatinine Ratio 33.5 Blood Urea Nitrogen 54 mg/dl Creatinine 1.60 mg/dl Potassium Level 3.5 mmol/L Sodium Level 139 mmol/L White Blood Count 9.65 K/uL Recent Pertinent Medications Outpatient Anti-diabetic Regimen: * N/A The patient is currently receiving: * No insulin Risk Factors for Insulin Resistance: * Steroids: Solu-Medrol 40 mg IV q6 hours (received due doses of 60 mg) * Infection: Azithromycin and Rocephin * Diet: TF: impact at 50 cc/hr * Mechanical Ventilation: currently on CPAP Assessment & Plan ASSESSMENT: * Mr De La Cruz in a 71 y/o M with a PMH of severe COPD who is currently intubated in the ICU secondary to respiratory failure and pneumonia. He is tolerating CPAP. He is also tolerating tube feeds via the form of Impact at50 cc /hr. His blood sugars became elevated yesterday with titration upwards on tube feeds and steroids. This morning the patient's fasting blood sugar was 168 mg/ dL. * Scheduled regular insulin (longer half-life than Novolog for tube feeds) to correlate with approximately a 1:10 carbohydrate ratio (weight-based stress of 2 dosing). Also provided correctional insulin. * Decided against Lantus at this point as the patient has not received any insulin since admission. He is on high dose steroids... weary of providing Lantus as the patient is in the ICU and tube feeding could be stopped at any point. Patient may receive a tracheostomy. PLAN FOR INPATIENT GLYCEMIC CONTROL: * Correctional Insulin with REGULAR per scale ACHS or Q6hrs while NPO * Goal Range: Low 140 mg/dL - High 180 mg/dL * Correction Factor: 30 mg/dL/unit * Nutritional / Prandial insulin per carb ratio of 1 unit per 10 grams CHO consumed (total of 4 units per 6 hours for tube feeds at 50 CC/hr) * Please note that the plan above was derived based on current level of insulin resistance and hospital stress. These recommendations are appropriate for inpatient admission only. Plan of care upon discharge will need to be reassessed to avoid potential outpatient hypo/hyperglycemia. Thank you.
--- NOTE | 2017-03-29 16:15 | PROGRESS NOTE ---
DATE: 03/29/2017 SUBJECTIVE: I reviewed Mr. De La Cruz's case today. The decisions are still pending regarding whether he is going to be a long-term tracheostomy with ventilatory support. Neurologically, his status fluctuates and he is periodically agitated. Yesterday, we saw no focal signs other than a mild level of confusion and at this point I think neurology has much more to offer. 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 We would be happy to take a look at him again in consultation if other issues emerge but for now, we are going to sign off the case. JOSÉ MANUEL
[2017-03-29] MEDS: LACTULOSE SYRUP 30 GM/45 ML UDP PO SCH (17:09)
[2017-03-29] MEDS: DILTIAZEM HCL 60 MG TAB PO SCH (17:09)
[2017-03-29] MEDS: CEFTRIAXONE SOD INJ 1 GM in DEXTROSE 5% ADD-VANTAGE 50ML 50 ML IV SCH (17:10)
[2017-03-29] MEDS: METHYLPREDNISOLONE IV 40 MG in SYRINGE 0 ML IV SCH ×2 (17:10→21:52)
[2017-03-29] MEDS ORDERED: HumuLIN-R 10 ML VIAL SC SCH ×2 (18:00)
[2017-03-29] MEDS: INSULIN HUMAN REGULAR SC SCH ×2 (18:33→18:34)
[2017-03-29] MEDS: AZITHROMYCIN IV 500 MG in DEXTROSE 5% 250ML 250 ML IV SCH (19:34)
[2017-03-29] MEDS: ALBUT/IPRATROP 3MG/0.5MG NEB 3 ML VIAL INH SCH ×2 (19:54→23:30)
--- NOTE | 2017-03-29 21:54 | Progress Note ---
Medicine Progress Note Date & Time of Visit: Mar 29, 2017 at 15:40. Subjective 71 yo M admitted with COPD exacerbation from PCP office, suffered a hypoxic event after noncompliance with BIPAP on 03/25 and developed ?seizure activity. He was treated with Ativan and subsequently intubated in the ICU. He remains vented and has continued to fail CPAP trials of wean until today. However, off sedation the patient nor his family can give the ICU team a clear answer on the desire to pursue a trach at this time. The patient answers yes to every question asked. He is able to follow some commands such as being told to squeeze fingers, make two thumbs up and wiggle his toes. Discussed the case with Dr. Lares-ICU attending. Objective Last 8 Hrs Date Time Temp Pulse Resp B/P (MAP) Pulse Ox O2 Delivery O2 Flow Rate FiO2 03/29/17 14:00 30 03/29/17 12:00 95 CPAP Mechanical Ventilator 03/29/17 12:00 118 22 155/88 (110) 97 CPAP Mechanical Ventilator 03/29/17 11:06 30 03/29/17 10:43 30 03/29/17 10:00 108 17 156/109 (125) 99 Mechanical Ventilator 30 03/29/17 08:00 Mechanical Ventilator 30 03/29/17 08:00 30 03/29/17 08:00 35.2 110 15 151/111 (124) 95 Mechanical Ventilator 30 03/29/17 08:00 100 Mechanical Ventilator Physical Exam: GEN: WNWD, intubated with eyes open. Able to follow some instructions like making two thumbs up. HEENT: NC/AT, PERRL, normal sclerae, MMM, ETT in place. OGT in place. CARDIO: reg rate, S1/2 heard without m/g/r LUNGS: CTA bilaterally, no crackles, rales or wheezes, limited exam as patient unable to follow instruction and has limited mobility. ABD: soft, non-distended, no guarding. +BS EXTREMITY: RP and DP palpable 2+ bilat, no LE swelling or edema, extremities are warm and well-perfused SKIN: warm and dry, multiple areas of ecchymosis on arms. Laboratory Results: 03/29/17 05:18 03/29/17 05:18 Test 03/18/17 00:00 03/18/17 17:25 03/18/17 20:14 03/19/17 00:53 Influenza Type A (RT-PCR) Neg for Influ A (NEG) Influenza Type A Antigen Neg for Influ A (NEG) Influenza Type B Antigen Neg for Influ B (NEG) Influenza Type B (RT-PCR) Neg for Influ B (NEG) Giant Platelets 1+ Polychromasia 1+ Peripheral Blood Smear Path Consult Lactic Acid Level 0.6 mmol/L (0.4-2.0) Anisocytosis PRESENT Absolute Reticulocyte Count 0.06 10^6/uL (0.02-0.10) Percent Reticulocyte Count 2.6 % (0.5-2.0) Ferritin 178.5 ng/ml (8.0-388.0) Vitamin B12 Level 559 pg/mL (211-911) Folate 10.95 ng/mL (>5.38) Test 03/20/17 05:43 03/20/17 10:03 03/22/17 05:14 03/23/17 07:22 Basophilic Stippling OCCASIONAL Iron Level 36 mcg/dl (35-175) Total Iron Binding Capacity 182 mcg/dl (250-450) Transferrin 123 mg/dl (200-360) Transferrin % Saturation 21 % (20-50) Arterial Blood pH 7.30 (7.35-7.45) Arterial Blood Partial Pressure CO2 61 mmHg (35-46) Arterial Blood Partial Pressure O2 65 mm/Hg (80-95) Arterial Blood HCO3 30 mmol/L (19-24) Arterial Blood Oxygen Saturation 91.5 % (90-95) Arterial Blood Base Excess 2.7 mEq/L (-9-1.8) Arterial Blood Gas Delivery 3 L Howard Test POS (POS) Platelet Estimate DECREASED Hypochromasia PRESENT Prostate Specific Antigen 1.680 ng/ml (0.000-4.000) Test 03/23/17 10:47 03/24/17 05:20 03/24/17 10:25 03/25/17 04:53 Urine Color YELLOW Urine Appearance CLEAR (CLEAR) Urine pH 7.5 (4.5-7.5) Urine Specific [place] 1.018 (1.000-1.030) Urine Protein NEG (NEG) Urine Glucose (UA) NEG (NEG) Urine Ketones NEG (NEG) Urine Occult Blood NEG (NEG) Urine Nitrite NEG (NEG) Urine Bilirubin NEG (NEG) Urine Urobilinogen NEG (NEG) Urine Leukocyte Esterase TRACE (NEG) Urine WBC (Auto) 1-5 /hpf (0-5) Urine RBC (Auto) 0-4 /hpf (0-4) Urine Hyaline Casts (Auto) 1-5 /lpf (0-5) Urine Epithelial Cells (Auto) >30 /lpf (0-5) Urine Bacteria (Auto) NEG (NEG) Urine Mucus PRESENT (NONE PRSENT) Urine Yeast (Auto) BUDDING (NONE PRSENT) Red Blood Cell Morphology Unremarkable Stool Occult Blood NEGATIVE (NEGATIVE) Direct Bilirubin 0.1 mg/dl (0-0.2) Test 03/25/17 06:49 03/25/17 16:07 03/25/17 21:59 03/28/17 05:11 Total Bilirubin 0.6 mg/dl (0.2-1) Aspartate Amino Transf (AST/SGOT) 14 U/L (15-37) Alanine Aminotransferase (ALT/SGPT) 16 U/L (12-78) Alkaline Phosphatase 51 U/L (45-117) Total Protein 5.4 gm/dl (6.4-8.2) Albumin 2.8 gm/dl (3.4-5.0) Globulin 2.6 gm/dl (2.5-4.0) Albumin/Globulin Ratio 1.1 (0.9-2) Prothrombin Time 10.3 SECONDS (9.0-12.0) Prothromb Time International Ratio 1.0 (0.9-1.1) Troponin I 1.410 ng/ml (0-0.045) Immature Granulocyte % (Auto) 0.2 % White Blood Count 4.14 K/uL (4.8-10.8) Red Blood Count 2.99 M/uL (4.7-6.1) Hemoglobin 9.3 g/dL (14.0-18.0) Hematocrit 28.9 % (42-52) Mean Corpuscular Volume 96.7 fL (80-100) Mean Corpuscular Hemoglobin 31.1 pg (25-34) Mean Corpuscular Hemoglobin Concent 32.2 g/dl (32-36) Platelet Count 124 K/uL (130-400) Mean Platelet Volume 12.6 fL (7.4-10.4) Neutrophils (%) (Auto) 88.9 % Lymphocytes (%) (Auto) 5.3 % Monocytes (%) (Auto) 5.6 % Eosinophils (%) (Auto) 0.0 % Basophils (%) (Auto) 0.0 % Neutrophils # (Auto) 3.68 K/uL (1.4-6.5) Lymphocytes # (Auto) 0.22 K/uL (1.2-3.4) Monocytes # (Auto) 0.23 K/uL (0.11-0.59) Eosinophils # (Auto) 0.00 K/uL (0-0.5) Basophils # (Auto) 0.00 K/uL (0-0.2) Immature Granulocyte # (Auto) 0.01 K/uL (0.00-0.02) Nucleated RBC Absolute Count (auto) 0.02 K/uL (0-0) Nucleated Red Blood Cells % 0.5 % Large Platelets 1+ Tear Drop Cells 1+ Test 03/28/17 05:16 03/29/17 05:18 03/29/17 17:12 Blood Gas Sample Site L Radial Bedside Blood Gas pH (LAB) 7.40 (7.35-7.45) Bedside Blood Gas pCO2 (LAB) 47 mmHg (35-46) Bedside Blood Gas pO2 (LAB) 74 mmHg (80-95) Bedside Blood Gas HCO3 (LAB) 29 meq/L (19-24) Bedside Blood Gas Total CO2 30 mEq/l (24-31) Bedside Blood Gas Base Excess (LAB) 4.0 meq/L (-9-1.8) Bedside Blood Gas O2 Saturation 95.0 % (90-95) Howard Test NA Oxygen Delivery Device Ventilator Bedside Oxygen Rate (breaths/min) 12 Blood Gas Minute Ventilation 7.1 Bedside FiO2 30 % Blood Gas Tidal Volume 550 Blood Gas PEEP 5 Red Blood Count 3.24 M/uL (4.7-6.1) Mean Corpuscular Volume 96.9 fL (80-100) Mean Corpuscular Hemoglobin 30.6 pg (25-34) Mean Corpuscular Hemoglobin Concent 31.5 g/dl (32-36) RDW Standard Deviation 52.6 fL (36.4-46.3) RDW Coefficient of Variation 14.8 % (11.5-14.5) Mean Platelet Volume 12.6 fL (7.4-10.4) Activated Partial Thromboplast Time 27.3 SECONDS (21.0-31.0) Partial Thromboplastin Ratio 1.1 Anion Gap 4.0 mmol/L (3-11) Est Creatinine Clear Calc Drug Dose 37.2 ml/min Estimated GFR () 48.8 Estimated GFR (Non- 42.1 BUN/Creatinine Ratio 33.5 (10-20) Calcium Level 7.8 mg/dl (8.5-10.1) Phosphorus Level 2.7 mg/dl (2.5-4.9) Magnesium Level 2.5 mg/dl (1.8-2.4) Bedside Glucose 201 mg/dl (70-99) Date/Time Source Procedure Growth Status 03/18/17 20:10 Blood Blood Culture - Final NO GROWTH Complete 03/25/17 09:20 Nasal MRSA DNA Surveillance Screen - Final Specimen Negative for MRSA by DNA Probe Complete 03/21/17 13:30 Sputum Expectorated Sputum Gram Stain - Final Complete 03/21/17 13:30 Sputum Culture - Final Treva Albicans Complete 03/23/17 10:47 Urine , Clean Catch Urine Culture - Final Treva Albicans Complete Last 24 Hours Test 03/28/17 23:41 03/29/17 05:18 03/29/17 06:23 Bedside Glucose 194 mg/dl 168 mg/dl White Blood Count 9.65 K/uL Red Blood Count 3.24 M/uL Hemoglobin 9.9 g/dL Hematocrit 31.4 % Mean Corpuscular Volume 96.9 fL Mean Corpuscular Hemoglobin 30.6 pg Mean Corpuscular Hemoglobin Concent 31.5 g/dl RDW Standard Deviation 52.6 fL RDW Coefficient of Variation 14.8 % Platelet Count 158 K/uL Mean Platelet Volume 12.6 fL Activated Partial Thromboplast Time 27.3 SECONDS Partial Thromboplastin Ratio 1.1 Sodium Level 139 mmol/L Potassium Level 3.5 mmol/L Chloride Level 103 mmol/L Carbon Dioxide Level 32 mmol/L Anion Gap 4.0 mmol/L Blood Urea Nitrogen 54 mg/dl Creatinine 1.60 mg/dl Est Creatinine Clear Calc Drug Dose 37.2 ml/min Estimated GFR () 48.8 Estimated GFR (Non- 42.1 BUN/Creatinine Ratio 33.5 Random Glucose 163 mg/dl Calcium Level 7.8 mg/dl Phosphorus Level 2.7 mg/dl Magnesium Level 2.5 mg/dl Assessment & Plan 71 yo M admitted with COPD exacerbation from PCP office, suffered a hypoxic event after noncompliance with BIPAP on 03/25 and developed ?seizure activity. He was treated with Ativan and subsequently intubated in the ICU. He remains vented and has continued to fail CPAP trials of wean until today. However, off sedation the patient nor his family can give the ICU team a clear answer on the desire to pursue a trach at this time. The patient answers yes to every question asked. He is able to follow some commands such as being told to squeeze fingers, make two thumbs up and wiggle his toes. Discussed the case with Dr. Lares-ICU attending. 1. COPD exacerbation 2/2 RLL pneumonia-Unasyn stopped today and Ceftriaxone and Azithro continued for CAP treatment. Continues on IV steroids and bronchodilators. Poor prognosis-cont mechanical ventilation until extubation possible, or trach/PEG likely remaining on ventilator vs palliative care and terminal extubation. 2. Elevated troponins with new onset cardiomyopathy- Presumed secondary to demand ischemia related to rate and poor pump function. Cont ASA 81mg PO daily. 3. Esophageal dysmotility-noted on recent Barium swallow. Currently intubated with feedings through OGT. 4. CHASITY-creatinine up to 1.6, cont management per ICU team. 5. Ureteral calculus-5mm obstructing calculus present in distal right ureter noted on CT 03/23. Urology is following and considering stent depending on goals of care. Pt remains vented. No surgical intervention planned at this time while discussing goals of care. 6. Anemia-likely multifactorial related to dilution, acute blood loss 2/2 daily phlebotomy and anemia of chronic disease. No indication for transfusion at this time. DVT proph-heparin Full Code Dispo-uncertain at this time. Palliative Care team is involved and is assisting with family discussions with ICU team. DO [facility]ev [facility] Hospital[facility] Consultants: Dr. Lares-ICU Dr. Jaramillo-Urology Neuro-Dr. Mahoney Procedures: . Current Inpatient Medications: Current Inpatient Medications Medications (Trade) Dose Ordered Sig/Rosemary Route Start Time Stop Time Status Last Admin Dose Admin Acetaminophen (Tylenol Tab) 650 mg Q4H PRN PO 03/18/17 20:30 04/17/17 20:29 03/26/17 08:50 650 MG Triamcinolone Acetonide (Kenalog 0.1% Cream) 1 appln BID EXT 03/18/17 21:00 04/17/17 20:59 03/29/17 09:07 1 APPLN Miscellaneous Information (Order Awaiting Action) 1 ea QS N/A 03/19/17 00:00 04/18/17 00:00 Enteral Nutritional Formula (Boost) 1 can BIDM PO 03/22/17 17:00 04/21/17 16:59 Future Hold 03/24/17 16:15 1 CAN Pantoprazole Sodium 40 mg/ Syringe 10 ml @ 5 mls/min DAILY@11 IV 03/26/17 11:00 04/25/17 10:59 03/29/17 12:16 5 MLS/MIN Ceftriaxone Sodium 1 gm/ Dextrose 50 ml @ 100 mls/hr DAILY@1800 IV 03/26/17 18:30 04/02/17 18:29 03/28/17 17:02 100 MLS/HR Azithromycin 500 mg/Dextrose 255 ml @ 125 mls/hr Q24H IV 03/26/17 19:00 04/02/17 18:59 03/28/17 19:09 125 MLS/HR Heparin Sodium (Porcine) (Heparin Sq 5000 Unit/0.5ml) 5,000 unit Q12 SQ 03/26/17 21:00 04/25/17 20:59 03/29/17 09:08 5,000 UNIT Aspirin (Aspirin Chew) 81 mg DAILY PO 03/28/17 09:00 04/27/17 08:59 03/29/17 09:09 81 MG Enteral Nutritional Formula (Impact 1.0 Ramirez) 1,000 ml UD PRN OG 03/27/17 11:45 04/26/17 11:44 03/29/17 01:45 1,000 ML Alprazolam (Xanax Tab) 0.5 mg Q8H PO 03/28/17 19:00 04/27/17 18:59 03/29/17 12:16 0.5 MG Hydromorphone HCl (Dilaudid Inj) 0.5 mg Q4 PRN IV 03/28/17 19:00 04/11/17 18:59 03/29/17 06:00 0.5 MG Methylprednisolone Sodium Succinate 40 mg/Syringe 0.64 ml @ 1.5 mls/min Q6H IV 03/29/17 16:00 04/25/17 09:59 Lactulose (Chronulac Syrup) 30 gm Q6 PO 03/29/17 18:00 04/28/17 17:59 Albuterol/ Ipratropium (Duoneb) 3 ml Q4R INH 03/29/17 16:00 04/28/17 15:59 Diltiazem HCl (Cardizem Tab) 60 mg Q6 PO 03/29/17 18:00 04/28/17 17:59 Miscellaneous Information (Consult Glycemic Management Pharmacy) 1 ea UD PRN N/A 03/29/17 14:15 04/28/17 14:14 Insulin Human Regular (novoLIN-R) SLIDING SCALE Q6 SC 03/29/17 18:00 04/28/17 17:59 Insulin Human Regular (novoLIN-R) 4 units Q6 SC 03/29/17 18:00 04/28/17 17:59
[2017-03-30] VITALS (34 sets, daily range): BP systolic 104–154; BP diastolic 52–85; PULSE 68–104; TEMP 36.4–37.7; O2SAT 95–100
[2017-03-30] MEDS: DILTIAZEM HCL 60 MG TAB PO SCH ×4 (00:20→18:00)
[2017-03-30] MEDS: LACTULOSE SYRUP 30 GM/45 ML UDP PO SCH ×2 (00:20→05:36)
[2017-03-30] MEDS: INSULIN HUMAN REGULAR SC SCH ×6 (00:23→18:22)
[2017-03-30] MEDS: IMPACT LIQ 1000 ML BAG OG PRN (01:46)
[2017-03-30] MEDS: ALPRAZOLAM 0.5 MG TAB PO SCH ×3 (02:45→19:00)
[2017-03-30] MEDS: ALBUT/IPRATROP 3MG/0.5MG NEB 3 ML VIAL INH SCH ×6 (03:14→23:35)
[2017-03-30] MEDS: METHYLPREDNISOLONE IV 40 MG in SYRINGE 0 ML IV SCH ×4 (04:02→21:46)
[2017-03-30 05:52] LABS: PTT PATIENT 27.2 SECONDS (21.0-31.0)
[2017-03-30] MEDS: TRIAMCINOLONE ACET 0.1% CR 15 GM TUBE EXT SCH ×2 (07:54→21:42)
[2017-03-30] MEDS: HEPARIN SOD 5000 UNIT/0.5 ML CARP SQ SCH ×2 (07:55→21:43)
[2017-03-30] MEDS: ASPIRIN 81 MG CHEW PO SCH (07:55)
[2017-03-30] MEDS: POTASSIUM CHLORIDE 20 MEQ/15 ML UDC PO SCH ×3 (09:20→21:00)
[2017-03-30] MEDS: PANTOprazole INJ 40 MG in SYRINGE 0 ML IV SCH (09:21)
[2017-03-30] MEDS ORDERED: INSULIN GLARGINE SOLOSTAR 100 UNITS/ML 3 ML PEN SC ONE (09:30)
--- NOTE | 2017-03-30 10:12 | Pharmacy Progress Note ---
Glycemic Control Progress Note Date of Service Mar 30, 2017. Scope Glycemic Pharmacist consulted for glycemic control to write orders per [facility] inpatient glycemic control protocol. Objective Accuchecks BSG (last 24hrs): Test 03/29/17 17:12 03/30/17 00:12 03/30/17 06:09 Bedside Glucose 201 mg/dl (70-99) 242 mg/dl (70-99) 219 mg/dl (70-99) Recent Pertinent Medications The patient is currently receiving: * Basal insulin: None * Correctional Insulin: Novolog Correction per scale ACHS Goal Range: Low 140 mg/dL - High 180 mg/dL Correction Factor: 30 mg/dL/unit * Prandial insulin: Novolog 4 units SC q6h scheduled (about carb ratio of 1 unit per 10 grams CHO consumed) Outpatient Anti-Diabetic Meds None Assessment & Plan ASSESSMENT: * 71 y/o M critically ill in ICU currently intubated 2nd to respiratory failure/ pneumonia. * BSG's ranging 201-242 mg/dL over the last 24 hours * Per ICU rounds, tolerating tubefeeds with Impact 50 mL/hr (provides ~39 g CHO every 6 hr). No plan to change steroid dose at this time. * Hyperglycemia likely steroid induced - responds best to prandial coverage. Will increase scheduled Novolog * Since tolerating tubefeeds, no change to steroids anticipated today, and BSG' s consistently >180 mg/dL, OK to start Lantus. * 1st dose will be ~24 hours of what patient required in correctional insulin * Ongoing dose weight-based and BSG based PLAN FOR INPATIENT GLYCEMIC CONTROL: * Initiate basal insulin: Lantus 10 units SC x1 now then BID as follows: * 0 units for BSg less than 140 mg/dL * 10 units for BSG 140-180 mg/dL * 15 units for BSG greater than 180 mg/dL * Hold Lantus if tubefeeds < 20 mL/hr * Bolus insulin * NovoLog per Q6hrs while on tubefeeds * Goal Range: Low 140 mg/dL - High 180 mg/dL * Correction Factor: 30 mg/dL/unit * Tighten Nutritional / Prandial insulin per carb ratio of 1 unit per 8 grams CHO consumed * Please note that the plan above was derived based on current level of insulin resistance and hospital stress. These recommendations are appropriate for inpatient admission only. Plan of care upon discharge will need to be reassessed to avoid potential outpatient hypo/hyperglycemia. Thank you.
[2017-03-30] MEDS ORDERED: INSULIN HUMAN REGULAR SC SCH (12:00)
[2017-03-30 12:28] LABS: HEMATOCRIT 30.5 % (42-52); HEMOGLOBIN 9.5 g/dL (14.0-18.0); MEAN CELL VOLUME 99.3 fL (80-100); MEAN CORPUSCULAR HEMOGLOBIN 30.9 pg (25-34); MEAN CORPUSCULAR HGB CONC 31.1 g/dl (32-36); MEAN PLATELET VOLUME 12.2 fL (7.4-10.4); PLATELET COUNT 138 K/uL (130-400); RED CELL DISTRIBUTION WIDTH CV 15.1 % (11.5-14.5); RED CELL DISTRIBUTION WIDTH SD 54.7 fL (36.4-46.3); WHITE BLOOD COUNT 10.56 K/uL (4.8-10.8)
[2017-03-30 12:55] LABS: CALCIUM 7.9 mg/dl (8.5-10.1); CREATININE 1.63 mg/dl (0.60-1.40); POTASSIUM 3.8 mmol/L (3.5-5.1)
[2017-03-30] MEDS: FUROSEMIDE INJ 40 MG in SYRINGE 0 ML IV SCH ×2 (14:20→21:45)
--- NOTE | 2017-03-30 16:23 | Palliative Care Progress Note ---
Palliative Care Progress Note Date of Service Mar 30, 2017. Subjective Pt evaluation today including: conversation w/ family (sonCollins Jr., and his s/ o Izabela), physical exam, chart review, conversation w/ independent marketing consultant (Dr. Lares) Pain: difficult to assess due to mental status PO Intake: tube feedings Voiding: villa catheter in place -Patient is awake and alert on mechanical ventilator. Patient is shaking head yes and no, but unreliably. Saying yes to pain, yes to being comfortable, etc. -Has been on CPAP all day with 12 of pressure support. Patient has low tidal volumes, but is somewhat maintaining at this point on CPAP via mechanical ventilator. -Family meeting held with patient's son, Collins Murdock, his Izabela, myself, Dr. Linder, Dr. Lares, Dr. Mar in room 106 about goals of care and treatment plan. See plan below. Review of Systems unable to obtain due to patient condition/mechanical ventilation Objective Vital Signs Date Time Temp Pulse Resp B/P (MAP) Pulse Ox O2 Delivery O2 Flow Rate FiO2 03/30/17 15:30 30 03/30/17 15:13 30 03/30/17 15:13 95 CPAP 30 Mechanical Ventilator 03/30/17 14:22 30 03/30/17 11:54 37.7 86 7 104/59 (74) 98 Mechanical Ventilator 30 03/30/17 11:40 30 03/30/17 11:40 98 CPAP 30 Mechanical Ventilator 03/30/17 11:20 30 03/30/17 09:04 30 03/30/17 08:30 77 17 99 03/30/17 08:01 37.0 71 15 126/59 (81) 98 Mechanical Ventilator 30 03/30/17 08:00 68 13 97 03/30/17 08:00 97 Mechanical Ventilator 30 03/30/17 08:00 Mechanical Ventilator 30 03/30/17 08:00 30 03/30/17 07:30 72 13 100 03/30/17 07:13 30 03/30/17 07:01 76 17 131/64 (86) 98 03/30/17 07:00 76 17 99 03/30/17 06:00 36.9 81 14 154/84 (107) 98 Mechanical Ventilator 30 03/30/17 05:30 30 03/30/17 04:00 97 Mechanical Ventilator 30 03/30/17 04:00 37.4 78 26 124/57 (79) 97 Mechanical Ventilator 30 03/30/17 04:00 30 03/30/17 02:10 30 03/30/17 02:00 37.5 82 25 136/63 (87) 97 Mechanical Ventilator 30 03/30/17 00:01 30 03/30/17 00:01 37.5 104 20 148/85 (106) 99 Mechanical Ventilator 30 03/30/17 00:01 98 Mechanical Ventilator 30 03/29/17 23:30 30 03/29/17 22:00 37.4 106 13 133/77 (95) 100 Mechanical Ventilator 30 03/29/17 20:00 30 03/29/17 20:00 126 13 151/96 (114) 98 Mechanical Ventilator 30 03/29/17 20:00 98 Mechanical Ventilator 30 03/29/17 19:54 30 03/29/17 18:01 120 12 156/88 (110) 100 03/29/17 18:00 117 15 100 03/29/17 17:01 128 14 159/101 (120) 100 03/29/17 17:00 131 15 94 03/29/17 16:40 30 03/29/17 16:01 122 14 159/97 (117) 99 03/29/17 16:00 116 14 95 03/29/17 16:00 98 Mechanical Ventilator 03/29/17 16:00 30 Physical Exam General Appearance: no apparent distress, + thin, + pertinent finding ( chronically ill appearing) ENT: hearing grossly normal Neck: supple, no JVD Respiratory/Chest: no respiratory distress, no accessory muscle use, + decreased breath sounds (air exchange diminshed), + rhonchi (coarse throughout) , + pertinent finding (vented via ETT) Cardiovascular: regular rate, rhythm, no edema, + normal peripheral pulses Abdomen: normal bowel sounds, non tender, soft Neurologic/Psychiatric: alert, + pertinent finding (orientation difficult to assess) Laboratory Results Last 24 Hours Test 03/29/17 17:12 03/30/17 00:12 03/30/17 05:15 03/30/17 06:09 Bedside Glucose 201 mg/dl 242 mg/dl 219 mg/dl Activated Partial Thromboplast Time 27.2 SECONDS Partial Thromboplastin Ratio 1.0 Test 03/30/17 11:15 03/30/17 12:17 Bedside Glucose 191 mg/dl White Blood Count 10.56 K/uL Red Blood Count 3.07 M/uL Hemoglobin 9.5 g/dL Hematocrit 30.5 % Mean Corpuscular Volume 99.3 fL Mean Corpuscular Hemoglobin 30.9 pg Mean Corpuscular Hemoglobin Concent 31.1 g/dl RDW Standard Deviation 54.7 fL RDW Coefficient of Variation 15.1 % Platelet Count 138 K/uL Mean Platelet Volume 12.2 fL Sodium Level 144 mmol/L Potassium Level 3.8 mmol/L Chloride Level 107 mmol/L Carbon Dioxide Level 34 mmol/L Anion Gap 3.0 mmol/L Blood Urea Nitrogen 51 mg/dl Creatinine 1.63 mg/dl Est Creatinine Clear Calc Drug Dose 38.1 ml/min Estimated GFR () 47.7 Estimated GFR (Non- 41.2 BUN/Creatinine Ratio 31.1 Random Glucose 192 mg/dl Calcium Level 7.9 mg/dl Troponin I 0.242 ng/ml Assessment and Plan Problem list: Altered mental status Respiratory failure, acute on chronic COPD, severe Pneumonia, RLL NSTEMI Possible seizure activity- neurology following CHASITY on CKD- improved creatinine from admission Goals of care (Z51.5) Palliative care recs: -Given patient's inconsistency with attempting to answer questions while ventilated, he cannot reliably make decisions for him self. His son, Meek Murdock , is surrogate decision maker. -Long discussion/family meeting held in patient's room to discuss goals of care and treatment plan. Collins Samaniego has made the decision to extubate patient to bipap mask with no plans of reintubation. If patient fails/declines, he will be made comfort measures and allow nature to take its course. NO TRACH OR PEG as patient would not want that done per the son and two other family members who he spoke with on the phone. -Would use morphine IV PRN for air hunger/SOB or pain. Start small and titrate as needed. Patient's son wants patient to have the chance to do well on the bipap and maybe have some time of being able to communicate. -Further disposition/plans to be determined based on how patient does. Prognosis is unfortunately poor given his end-stage lung disease and multiple other comorbidities. Thank you again for allowing me to participate in the care of this patient and his nice family. Please don't hesitate to contact me with any further palliative care needs. Palliative Performance Scale: 20 % Continued [facility] stay due to: multiple IV medications needed, home environment unsafe for pt, other (acute care continues in ICU) Discharge planning: uncertain
--- NOTE | 2017-03-30 17:15 | Critical Care Progress Note ---
Critical Care Progress Note Date of Service Mar 30, 2017. Attending Dr. Lares Subjective The patient remains confused answering her questions regularly. Although his answers are variable without being able to identify what he wants. However overall he does not appear to be in shortness of breath, no chest pain or no pain at all. Objective ROS is not obtainable. HR tachycardia. S1S2 RRR. distant BS bilaterally. abdomen is benign. multiple sc hematomas. neuro non focal. awake and following commands properly. His physical exam on 03/27/2017 revealed elderly gentleman does not appear to be in any distress currently vented. He sedated with Precedex. Heart examination S1-S2 regular rate and rhythm. The patient did have an episode of SVT requiring adenosine however P-wave was obvious and the patient had normal sinus rhythm. Abdomen is benign. No edema. Neurologically with weakness on the right side. On 03/28/2017, the patient failed CPAP trial, the patient was taken off the sedation prior to the trial. His physical exam reveals occasional tachycardia was sinus rhythm. Heart examination S1-S2 regular rate and rhythm. Distant breath sounds bilaterally. Abdomen is benign no edema. Neurologically the patient remains the same. On 03/29/2017, the patient tolerated the CPAP trial with a PSV of 20 and PEEP of 5. No JVP, heart examination S1-S2 regular rate and rhythm. Lungs with distant breath sounds bilaterally, abdomen is benign but appeared distended, no edema. Hematomas has been healing. Neurologically anxious but minimally weak on the right side. On 03/30/2017, the patient was placed on the CPAP with PSV of 15 and reduce to 12, the patient tolerated the CPAP well, the patient has been on the CPAP all day long, he has distant breath sounds and no audible breath sounds on the right. Heart examination S1 and S2 slightly tachycardic at times. Abdomen is benign no edema. Neurologically difficult to assess. Current SOFA Score SOFA Score Response (Comments) Value PaO2/FiO2 (mmHg) < 400 1 SaO2 / FIO2 221 - 301 1 Platelets (x10) > 150 0 Bilirubin (mg/dL) < 1.2 0 Cherise Coma Score 10 - 12 2 Level of Hypotension No Hypotension 0 Creatinine (mg/dL) < 1.2 0 Total 4 Assessment & Plan #1 end-stage COPD, goal level IV, severe bullous disease. #2 acute respiratory failure secondary to above. #3 right lower lobe pneumonia. #4 new onset A. fib, rate controlled but not anticoagulated. Noted the patient had flipped T waves in the lateral leads and 1 and aVL. Troponin was going down. BUN/creatinine remain stable. #5 chronic kidney disease. #6 multiple hematomas and the patient is off anticoagulation. Plan: #[address] with the son at the bedside. Finally he is in agreement of bridging the patient from intubation to BiPAP. In fact the patient was extubated successfully to a BiPAP of 18/5. He remains on 40% oxygen only. His SATURATION 98% and his respiratory rate remains at 22. #2 tracheostomy was declined. If the patient failed extubation the family advocating comfort measures only. #3 I will stop his azithromycin after today's dose which is a fifth dose. #4 I will continue with ceftriaxone for 2 more days. #5 I have decreased Solu-Medrol to 40 mg IV every 6 hours. #6 due to the patient being positive and fluid balance at 10 L I have started the patient on Lasix 40 mg every 8 hours. #7 repeat the potassium accordingly. #8 EKG was obtained and reviewed personally which showed a new flipped T waves in the lateral leads and anterior leads however troponin remains negative. Patient anyway is not a candidate for PCI. #9 continue with Cardizem for rate control. #10 discontinue OT and PT consult. #11 keep the patient nothing by mouth for today. #12 meds or consultation. Case discussed with the staff, with the family, critical care time spent with the patient was 45 minutes. Consults & Procedures Consultants: neurology. Procedures: none today. Data Medications: Current Inpatient Medications Medications (Trade) Dose Ordered Sig/Rosemary Route Start Time Stop Time Status Last Admin Dose Admin Acetaminophen (Tylenol Tab) 650 mg Q4H PRN PO 03/18/17 20:30 04/17/17 20:29 03/26/17 08:50 650 MG Triamcinolone Acetonide (Kenalog 0.1% Cream) 1 appln BID EXT 03/18/17 21:00 04/17/17 20:59 03/30/17 07:54 1 APPLN Miscellaneous Information (Order Awaiting Action) 1 ea QS N/A 03/19/17 00:00 04/18/17 00:00 Enteral Nutritional Formula (Boost) 1 can BIDM PO 03/22/17 17:00 04/21/17 16:59 Future Hold 03/24/17 16:15 1 CAN Pantoprazole Sodium 40 mg/ Syringe 10 ml @ 5 mls/min DAILY@11 IV 03/26/17 11:00 04/25/17 10:59 03/30/17 09:21 5 MLS/MIN Ceftriaxone Sodium 1 gm/ Dextrose 50 ml @ 100 mls/hr DAILY@1800 IV 03/26/17 18:30 04/02/17 18:29 03/29/17 17:10 100 MLS/HR Azithromycin 500 mg/Dextrose 255 ml @ 125 mls/hr Q24H IV 03/26/17 19:00 03/30/17 20:00 03/29/17 19:34 125 MLS/HR Heparin Sodium (Porcine) (Heparin Sq 5000 Unit/0.5ml) 5,000 unit Q12 SQ 03/26/17 21:00 04/25/17 20:59 03/30/17 07:55 5,000 UNIT Aspirin (Aspirin Chew) 81 mg DAILY PO 03/28/17 09:00 04/27/17 08:59 03/30/17 07:55 81 MG Enteral Nutritional Formula (Impact 1.0 Ramirez) 1,000 ml UD PRN OG 03/27/17 11:45 04/26/17 11:44 03/30/17 01:46 1,000 ML Hydromorphone HCl (Dilaudid Inj) 0.5 mg Q4 PRN IV 03/28/17 19:00 04/11/17 18:59 03/29/17 06:00 0.5 MG Methylprednisolone Sodium Succinate 40 mg/Syringe 0.64 ml @ 1.5 mls/min Q6H IV 03/29/17 16:00 04/25/17 09:59 03/30/17 09:21 1.5 MLS/MIN Albuterol/ Ipratropium (Duoneb) 3 ml Q4R INH 03/29/17 16:00 04/28/17 15:59 03/30/17 15:30 3 ML Diltiazem HCl (Cardizem Tab) 60 mg Q6 PO 03/29/17 18:00 04/28/17 17:59 03/30/17 11:10 60 MG Miscellaneous Information (Consult Glycemic Management Pharmacy) 1 ea UD PRN N/A 03/29/17 14:15 04/28/17 14:14 Insulin Human Regular (novoLIN-R) SLIDING SCALE Q6 SC 03/29/17 18:00 04/28/17 17:59 03/30/17 11:22 6 UNITS Lactulose (Chronulac Syrup) 30 gm Q6 PRN PO 03/30/17 08:30 04/29/17 08:29 Alprazolam (Xanax Tab) 1 mg Q8H PO 03/30/17 11:00 04/27/17 18:59 03/30/17 11:10 1 MG Furosemide 40 mg/ Syringe 4 ml @ 4 mls/min Q8 IV 03/30/17 14:00 04/29/17 13:59 03/30/17 14:20 4 MLS/MIN Potassium Chloride (Teresa Ciel Elix) 40 meq TID PO 03/30/17 09:00 04/29/17 08:59 03/30/17 14:18 40 MEQ Insulin Glargine (Lantus Solostar Pen) BID@0600,1800 SC 03/30/17 18:00 04/29/17 17:59 I & O: 24-Hour Column 03/31/17 07:59 Intake Total 629 ml Output Total 450 ml Balance 179 ml Vital Signs: Date Time Temp Pulse Resp B/P (MAP) Pulse Ox O2 Delivery O2 Flow Rate FiO2 03/30/17 15:30 30 03/30/17 15:13 30 03/30/17 15:13 95 CPAP 30 Mechanical Ventilator 03/30/17 14:22 30 03/30/17 11:54 37.7 86 7 104/59 (74) 98 Mechanical Ventilator 30 03/30/17 11:40 30 03/30/17 11:40 98 CPAP 30 Mechanical Ventilator 03/30/17 11:20 30 03/30/17 09:04 30 03/30/17 08:30 77 17 99 03/30/17 08:01 37.0 71 15 126/59 (81) 98 Mechanical Ventilator 30 03/30/17 08:00 68 13 97 03/30/17 08:00 97 Mechanical Ventilator 30 03/30/17 08:00 Mechanical Ventilator 30 03/30/17 08:00 30 03/30/17 07:30 72 13 100 03/30/17 07:13 30 03/30/17 07:01 76 17 131/64 (86) 98 03/30/17 07:00 76 17 99 03/30/17 06:00 36.9 81 14 154/84 (107) 98 Mechanical Ventilator 30 03/30/17 05:30 30 03/30/17 04:00 97 Mechanical Ventilator 30 03/30/17 04:00 37.4 78 26 124/57 (79) 97 Mechanical Ventilator 30 03/30/17 04:00 30 03/30/17 02:10 30 03/30/17 02:00 37.5 82 25 136/63 (87) 97 Mechanical Ventilator 30 03/30/17 00:01 30 03/30/17 00:01 37.5 104 20 148/85 (106) 99 Mechanical Ventilator 30 03/30/17 00:01 98 Mechanical Ventilator 30 03/29/17 23:30 30 03/29/17 22:00 37.4 106 13 133/77 (95) 100 Mechanical Ventilator 30 03/29/17 20:00 30 03/29/17 20:00 126 13 151/96 (114) 98 Mechanical Ventilator 30 03/29/17 20:00 98 Mechanical Ventilator 30 03/29/17 19:54 30 03/29/17 18:01 120 12 156/88 (110) 100 03/29/17 18:00 117 15 100 Laboratory Results: Last 24 Hours Test 03/29/17 17:12 03/30/17 00:12 03/30/17 05:15 03/30/17 06:09 Bedside Glucose 201 mg/dl 242 mg/dl 219 mg/dl Activated Partial Thromboplast Time 27.2 SECONDS Partial Thromboplastin Ratio 1.0 Test 03/30/17 11:15 03/30/17 12:17 Bedside Glucose 191 mg/dl White Blood Count 10.56 K/uL Red Blood Count 3.07 M/uL Hemoglobin 9.5 g/dL Hematocrit 30.5 % Mean Corpuscular Volume 99.3 fL Mean Corpuscular Hemoglobin 30.9 pg Mean Corpuscular Hemoglobin Concent 31.1 g/dl RDW Standard Deviation 54.7 fL RDW Coefficient of Variation 15.1 % Platelet Count 138 K/uL Mean Platelet Volume 12.2 fL Sodium Level 144 mmol/L Potassium Level 3.8 mmol/L Chloride Level 107 mmol/L Carbon Dioxide Level 34 mmol/L Anion Gap 3.0 mmol/L Blood Urea Nitrogen 51 mg/dl Creatinine 1.63 mg/dl Est Creatinine Clear Calc Drug Dose 38.1 ml/min Estimated GFR () 47.7 Estimated GFR (Non- 41.2 BUN/Creatinine Ratio 31.1 Random Glucose 192 mg/dl Calcium Level 7.9 mg/dl Troponin I 0.242 ng/ml
[2017-03-30] MEDS: INSULIN GLARGINE SOLOSTAR 100 UNITS/ML 3 ML PEN SC SCH (18:00)
[2017-03-30] MEDS: CEFTRIAXONE SOD INJ 1 GM in DEXTROSE 5% ADD-VANTAGE 50ML 50 ML IV SCH (18:07)
--- NOTE | 2017-03-30 18:17 | Progress Note ---
Medicine Progress Note Date & Time of Visit: Mar 30, 2017 at 16:07. Subjective 71 yo M admitted with COPD exacerbation from PCP office, suffered a hypoxic event after noncompliance with BIPAP on 03/25 and developed ?seizure activity. He was treated with Ativan and subsequently intubated in the ICU. He remains vented and has continued to fail CPAP trials of wean until 03/29. Family finally agreed to extubate and patient is currently on trial of BIPAP. Can not obtain ROS at this time 2/2 fatigue. Objective Last 8 Hrs Date Time Temp Pulse Resp B/P (MAP) Pulse Ox O2 Delivery O2 Flow Rate FiO2 03/30/17 15:30 30 03/30/17 15:13 30 03/30/17 15:13 95 CPAP 30 Mechanical Ventilator 03/30/17 14:22 30 03/30/17 11:54 37.7 86 7 104/59 (74) 98 Mechanical Ventilator 30 03/30/17 11:40 30 03/30/17 11:40 98 CPAP 30 Mechanical Ventilator 03/30/17 11:20 30 03/30/17 09:04 30 03/30/17 08:30 77 17 99 Physical Exam: GEN: WNWD, BIPAP in place. Opens eyes to verbal stimuli but very somnolent. HEENT: NC/AT, pupils are equal and round bilaterally, normal sclerae, MMM, BIPAP in place. CARDIO: reg rate, S1/2 heard without m/g/r LUNGS: CTA bilaterally, no crackles, rales or wheezes, limited exam as patient unable to follow instruction and has limited mobility. ABD: soft, non-distended, no guarding. +BS EXTREMITY: RP and DP palpable 2+ bilat, no LE swelling or edema, extremities are warm and well-perfused SKIN: warm and dry, multiple areas of ecchymosis on arms that appear to be healing. Laboratory Results: 03/30/17 12:17 03/30/17 12: Test 03/18/17 00:00 03/18/17 17:25 03/18/17 20:14 03/19/17 00:53 Influenza Type A (RT-PCR) Neg for Influ A (NEG) Influenza Type A Antigen Neg for Influ A (NEG) Influenza Type B Antigen Neg for Influ B (NEG) Influenza Type B (RT-PCR) Neg for Influ B (NEG) Giant Platelets 1+ Polychromasia 1+ Peripheral Blood Smear Path Consult Lactic Acid Level 0.6 mmol/L (0.4-2.0) Anisocytosis PRESENT Absolute Reticulocyte Count 0.06 10^6/uL (0.02-0.10) Percent Reticulocyte Count 2.6 % (0.5-2.0) Ferritin 178.5 ng/ml (8.0-388.0) Vitamin B12 Level 559 pg/mL (211-911) Folate 10.95 ng/mL (>5.38) Test 03/20/17 05:43 03/20/17 10:03 03/22/17 05:14 03/23/17 07:22 Basophilic Stippling OCCASIONAL Iron Level 36 mcg/dl (35-175) Total Iron Binding Capacity 182 mcg/dl (250-450) Transferrin 123 mg/dl (200-360) Transferrin % Saturation 21 % (20-50) Arterial Blood pH 7.30 (7.35-7.45) Arterial Blood Partial Pressure CO2 61 mmHg (35-46) Arterial Blood Partial Pressure O2 65 mm/Hg (80-95) Arterial Blood HCO3 30 mmol/L (19-24) Arterial Blood Oxygen Saturation 91.5 % (90-95) Arterial Blood Base Excess 2.7 mEq/L (-9-1.8) Arterial Blood Gas Delivery 3 L Howard Test POS (POS) Platelet Estimate DECREASED Hypochromasia PRESENT Prostate Specific Antigen 1.680 ng/ml (0.000-4.000) Test 03/23/17 10:47 03/24/17 05:20 03/24/17 10:25 03/25/17 04:53 Urine Color YELLOW Urine Appearance CLEAR (CLEAR) Urine pH 7.5 (4.5-7.5) Urine Specific Bernice 1.018 (1.000-1.030) Urine Protein NEG (NEG) Urine Glucose (UA) NEG (NEG) Urine Ketones NEG (NEG) Urine Occult Blood NEG (NEG) Urine Nitrite NEG (NEG) Urine Bilirubin NEG (NEG) Urine Urobilinogen NEG (NEG) Urine Leukocyte Esterase TRACE (NEG) Urine WBC (Auto) 1-5 /hpf (0-5) Urine RBC (Auto) 0-4 /hpf (0-4) Urine Hyaline Casts (Auto) 1-5 /lpf (0-5) Urine Epithelial Cells (Auto) >30 /lpf (0-5) Urine Bacteria (Auto) NEG (NEG) Urine Mucus PRESENT (NONE PRSENT) Urine Yeast (Auto) BUDDING (NONE PRSENT) Red Blood Cell Morphology Unremarkable Stool Occult Blood NEGATIVE (NEGATIVE) Direct Bilirubin 0.1 mg/dl (0-0.2) Test 03/25/17 06:49 03/25/17 16:07 03/28/17 05:11 03/28/17 05:16 Total Bilirubin 0.6 mg/dl (0.2-1) Aspartate Amino Transf (AST/SGOT) 14 U/L (15-37) Alanine Aminotransferase (ALT/SGPT) 16 U/L (12-78) Alkaline Phosphatase 51 U/L (45-117) Total Protein 5.4 gm/dl (6.4-8.2) Albumin 2.8 gm/dl (3.4-5.0) Globulin 2.6 gm/dl (2.5-4.0) Albumin/Globulin Ratio 1.1 (0.9-2) Prothrombin Time 10.3 SECONDS (9.0-12.0) Prothromb Time International Ratio 1.0 (0.9-1.1) Immature Granulocyte % (Auto) 0.2 % White Blood Count 4.14 K/uL (4.8-10.8) Red Blood Count 2.99 M/uL (4.7-6.1) Hemoglobin 9.3 g/dL (14.0-18.0) Hematocrit 28.9 % (42-52) Mean Corpuscular Volume 96.7 fL (80-100) Mean Corpuscular Hemoglobin 31.1 pg (25-34) Mean Corpuscular Hemoglobin Concent 32.2 g/dl (32-36) Platelet Count 124 K/uL (130-400) Mean Platelet Volume 12.6 fL (7.4-10.4) Neutrophils (%) (Auto) 88.9 % Lymphocytes (%) (Auto) 5.3 % Monocytes (%) (Auto) 5.6 % Eosinophils (%) (Auto) 0.0 % Basophils (%) (Auto) 0.0 % Neutrophils # (Auto) 3.68 K/uL (1.4-6.5) Lymphocytes # (Auto) 0.22 K/uL (1.2-3.4) Monocytes # (Auto) 0.23 K/uL (0.11-0.59) Eosinophils # (Auto) 0.00 K/uL (0-0.5) Basophils # (Auto) 0.00 K/uL (0-0.2) Immature Granulocyte # (Auto) 0.01 K/uL (0.00-0.02) Nucleated RBC Absolute Count (auto) 0.02 K/uL (0-0) Nucleated Red Blood Cells % 0.5 % Large Platelets 1+ Tear Drop Cells 1+ Blood Gas Sample Site L Radial Bedside Blood Gas pH (LAB) 7.40 (7.35-7.45) Bedside Blood Gas pCO2 (LAB) 47 mmHg (35-46) Bedside Blood Gas pO2 (LAB) 74 mmHg (80-95) Bedside Blood Gas HCO3 (LAB) 29 meq/L (19-24) Bedside Blood Gas Total CO2 30 mEq/l (24-31) Bedside Blood Gas Base Excess (LAB) 4.0 meq/L (-9-1.8) Bedside Blood Gas O2 Saturation 95.0 % (90-95) Howard Test NA Oxygen Delivery Device Ventilator Bedside Oxygen Rate (breaths/min) 12 Blood Gas Minute Ventilation 7.1 Bedside FiO2 30 % Blood Gas Tidal Volume 550 Blood Gas PEEP 5 Test 03/29/17 05:18 03/30/17 05:15 03/30/17 11:15 03/30/17 12:17 Phosphorus Level 2.7 mg/dl (2.5-4.9) Magnesium Level 2.5 mg/dl (1.8-2.4) Activated Partial Thromboplast Time 27.2 SECONDS (21.0-31.0) Partial Thromboplastin Ratio 1.0 Bedside Glucose 191 mg/dl (70-99) Red Blood Count 3.07 M/uL (4.7-6.1) Mean Corpuscular Volume 99.3 fL (80-100) Mean Corpuscular Hemoglobin 30.9 pg (25-34) Mean Corpuscular Hemoglobin Concent 31.1 g/dl (32-36) RDW Standard Deviation 54.7 fL (36.4-46.3) RDW Coefficient of Variation 15.1 % (11.5-14.5) Mean Platelet Volume 12.2 fL (7.4-10.4) Anion Gap 3.0 mmol/L (3-11) Est Creatinine Clear Calc Drug Dose 38.1 ml/min Estimated GFR () 47.7 Estimated GFR (Non- 41.2 BUN/Creatinine Ratio 31.1 (10-20) Calcium Level 7.9 mg/dl (8.5-10.1) Troponin I 0.242 ng/ml (0-0.045) Date/Time Source Procedure Growth Status 03/18/17 20:10 Blood Blood Culture - Final NO GROWTH Complete 03/25/17 09:20 Nasal MRSA DNA Surveillance Screen - Final Specimen Negative for MRSA by DNA Probe Complete 03/21/17 13:30 Sputum Expectorated Sputum Gram Stain - Final Complete 03/21/17 13:30 Sputum Culture - Final Treva Albicans Complete 03/23/17 10:47 Urine , Clean Catch Urine Culture - Final Treva Albicans Complete Last 24 Hours Test 03/29/17 17:12 03/30/17 00:12 03/30/17 05:15 03/30/17 06:09 Bedside Glucose 201 mg/dl 242 mg/dl 219 mg/dl Activated Partial Thromboplast Time 27.2 SECONDS Partial Thromboplastin Ratio 1.0 Test 03/30/17 11:15 03/30/17 12:17 Bedside Glucose 191 mg/dl White Blood Count 10.56 K/uL Red Blood Count 3.07 M/uL Hemoglobin 9.5 g/dL Hematocrit 30.5 % Mean Corpuscular Volume 99.3 fL Mean Corpuscular Hemoglobin 30.9 pg Mean Corpuscular Hemoglobin Concent 31.1 g/dl RDW Standard Deviation 54.7 fL RDW Coefficient of Variation 15.1 % Platelet Count 138 K/uL Mean Platelet Volume 12.2 fL Sodium Level 144 mmol/L Potassium Level 3.8 mmol/L Chloride Level 107 mmol/L Carbon Dioxide Level 34 mmol/L Anion Gap 3.0 mmol/L Blood Urea Nitrogen 51 mg/dl Creatinine 1.63 mg/dl Est Creatinine Clear Calc Drug Dose 38.1 ml/min Estimated GFR () 47.7 Estimated GFR (Non- 41.2 BUN/Creatinine Ratio 31.1 Random Glucose 192 mg/dl Calcium Level 7.9 mg/dl Troponin I 0.242 ng/ml Assessment & Plan 71 yo M admitted with COPD exacerbation from PCP office, suffered a hypoxic event after noncompliance with BIPAP on 03/25 and developed ?seizure activity. He was treated with Ativan and subsequently intubated in the ICU. He remains vented and has continued to fail CPAP trials of wean until 03/29. Family finally agreed to extubate and patient is currently on trial of BIPAP. Can not obtain ROS at this time 2/2 fatigue. 1. COPD exacerbation 2/2 RLL pneumonia-Unasyn stopped today and Ceftriaxone and Azithro continued for CAP treatment. Continues on IV steroidextubated to BIPAP today and will attempt to wean to nasal canula in am. 2. Elevated troponins with new onset cardiomyopathy- Presumed secondary to demand ischemia related to rate and poor pump function. Cont ASA 81mg PO daily. 3. Esophageal dysmotility-noted on recent Barium swallow. Feeding tube pulled when extubated today. Will attempt swallow study in next few days as tolerated. 4. CHASITY-creatinine up to 1.6, cont management per ICU team. 5. Ureteral calculus-5mm obstructing calculus present in distal right ureter noted on CT 03/23. Urology is following and considering stent depending on goals of care. Pt remains vented. No surgical intervention planned at this time while discussing goals of care. 6. Anemia-likely multifactorial related to dilution, acute blood loss 2/2 daily phlebotomy and anemia of chronic disease. No indication for transfusion at this time. DVT proph-heparin Full Code Dispo-uncertain at this time. Palliative Care team is involved and is assisting with family discussions with ICU team. DO [facility] Consultants: Dr. Lares-ICU Dr. Jaramillo-Urology Neuro-Dr. Mahoney Procedures: . Current Inpatient Medications: Current Inpatient Medications Medications (Trade) Dose Ordered Sig/Rosemary Route Start Time Stop Time Status Last Admin Dose Admin Acetaminophen (Tylenol Tab) 650 mg Q4H PRN PO 03/18/17 20:30 04/17/17 20:29 03/26/17 08:50 650 MG Triamcinolone Acetonide (Kenalog 0.1% Cream) 1 appln BID EXT 03/18/17 21:00 04/17/17 20:59 03/30/17 07:54 1 APPLN Miscellaneous Information (Order Awaiting Action) 1 ea QS N/A 03/19/17 00:00 04/18/17 00:00 Enteral Nutritional Formula (Boost) 1 can BIDM PO 03/22/17 17:00 04/21/17 16:59 Future Hold 03/24/17 16:15 1 CAN Pantoprazole Sodium 40 mg/ Syringe 10 ml @ 5 mls/min DAILY@11 IV 03/26/17 11:00 04/25/17 10:59 03/30/17 09:21 5 MLS/MIN Ceftriaxone Sodium 1 gm/ Dextrose 50 ml @ 100 mls/hr DAILY@1800 IV 03/26/17 18:30 04/02/17 18:29 03/29/17 17:10 100 MLS/HR Azithromycin 500 mg/Dextrose 255 ml @ 125 mls/hr Q24H IV 03/26/17 19:00 03/30/17 20:00 03/29/17 19:34 125 MLS/HR Heparin Sodium (Porcine) (Heparin Sq 5000 Unit/0.5ml) 5,000 unit Q12 SQ 03/26/17 21:00 04/25/17 20:59 03/30/17 07:55 5,000 UNIT Aspirin (Aspirin Chew) 81 mg DAILY PO 03/28/17 09:00 04/27/17 08:59 03/30/17 07:55 81 MG Enteral Nutritional Formula (Impact 1.0 Ramirez) 1,000 ml UD PRN OG 03/27/17 11:45 04/26/17 11:44 03/30/17 01:46 1,000 ML Hydromorphone HCl (Dilaudid Inj) 0.5 mg Q4 PRN IV 03/28/17 19:00 04/11/17 18:59 03/29/17 06:00 0.5 MG Methylprednisolone Sodium Succinate 40 mg/Syringe 0.64 ml @ 1.5 mls/min Q6H IV 03/29/17 16:00 04/25/17 09:59 03/30/17 09:21 1.5 MLS/MIN Albuterol/ Ipratropium (Duoneb) 3 ml Q4R INH 03/29/17 16:00 04/28/17 15:59 03/30/17 15:30 3 ML Diltiazem HCl (Cardizem Tab) 60 mg Q6 PO 03/29/17 18:00 04/28/17 17:59 03/30/17 11:10 60 MG Miscellaneous Information (Consult Glycemic Management Pharmacy) 1 ea UD PRN N/A 03/29/17 14:15 04/28/17 14:14 Insulin Human Regular (novoLIN-R) SLIDING SCALE Q6 SC 03/29/17 18:00 04/28/17 17:59 03/30/17 11:22 6 UNITS Lactulose (Chronulac Syrup) 30 gm Q6 PRN PO 03/30/17 08:30 04/29/17 08:29 Alprazolam (Xanax Tab) 1 mg Q8H PO 03/30/17 11:00 04/27/17 18:59 03/30/17 11:10 1 MG Furosemide 40 mg/ Syringe 4 ml @ 4 mls/min Q8 IV 03/30/17 14:00 04/29/17 13:59 03/30/17 14:20 4 MLS/MIN Potassium Chloride (Teresa Ciel Elix) 40 meq TID PO 03/30/17 09:00 04/29/17 08:59 03/30/17 14:18 40 MEQ Insulin Glargine (Lantus Solostar Pen) BID@0600,1800 SC 03/30/17 18:00 04/29/17 17:59
[2017-03-30] MEDS ORDERED: DILTIAZEM BOLUS / DRIP IV STA (18:55)
[2017-03-30] MEDS: DILTIAZEM HCL INJ 125 MG in DEXTROSE 5% 100ML IV PRN (19:23)
[2017-03-30] MEDS: AZITHROMYCIN IV 500 MG in DEXTROSE 5% 250ML 250 ML IV SCH (19:29)
[2017-03-30] MEDS ORDERED: INSULIN GLARGINE SOLOSTAR 100 UNITS/ML 3 ML PEN SC SCH (21:00)
[2017-03-31] VITALS (26 sets, daily range): BP systolic 96–146; BP diastolic 53–81; PULSE 31–101; TEMP 36.7–36.8; O2SAT 94–100
[2017-03-31] MEDS: INSULIN HUMAN REGULAR SC SCH ×5 (00:10→21:59)
[2017-03-31] MEDS: ALPRAZOLAM 0.5 MG TAB PO SCH ×3 (03:00→21:48)
[2017-03-31] MEDS: ALBUT/IPRATROP 3MG/0.5MG NEB 3 ML VIAL INH SCH ×6 (03:42→22:45)
[2017-03-31] MEDS: METHYLPREDNISOLONE IV 40 MG in SYRINGE 0 ML IV SCH ×4 (04:00→22:43)
[2017-03-31 05:26] LABS: HEMOGLOBIN 9.7 g/dL (14.0-18.0); MEAN CORPUSCULAR HEMOGLOBIN 31.6 pg (25-34); MEAN CORPUSCULAR HGB CONC 31.3 g/dl (32-36); MEAN PLATELET VOLUME 11.6 fL (7.4-10.4); PLATELET COUNT 124 K/uL (130-400); RED CELL DISTRIBUTION WIDTH CV 15.1 % (11.5-14.5); RED CELL DISTRIBUTION WIDTH SD 55.6 fL (36.4-46.3); WHITE BLOOD COUNT 9.59 K/uL (4.8-10.8)
[2017-03-31 05:37] LABS: PTT PATIENT 26.2 SECONDS (21.0-31.0)
[2017-03-31 05:44] LABS: CALCIUM 7.6 mg/dl (8.5-10.1); CREATININE 1.48 mg/dl (0.60-1.40); POTASSIUM 3.5 mmol/L (3.5-5.1)
[2017-03-31] MEDS: FUROSEMIDE INJ 40 MG in SYRINGE 0 ML IV SCH ×3 (06:00→22:43)
[2017-03-31] MEDS: INSULIN GLARGINE SOLOSTAR 100 UNITS/ML 3 ML PEN SC SCH ×2 (06:00→22:00)
[2017-03-31 07:01] LABS: HEMOGLOBIN A1C 4.8 % (4.5-5.6)
[2017-03-31] MEDS: ASPIRIN 81 MG CHEW PO SCH (08:32)
[2017-03-31] MEDS: POTASSIUM CHLORIDE 20 MEQ/15 ML UDC PO SCH ×3 (08:32→21:49)
[2017-03-31] MEDS: HEPARIN SOD 5000 UNIT/0.5 ML CARP SQ SCH ×2 (08:39→22:00)
--- NOTE | 2017-03-31 10:18 | Critical Care Progress Note ---
Critical Care Progress Note Date of Service Mar 31, 2017. Attending Dr. Luda Terry The patient remains extubated, he is off the BiPAP on 3 L oxygen, is following commands and answering questions, he speaks in full sentences. He failed bedside swallow eval. The patient denies any chest pain, no shortness of breath , no nausea or vomiting. The rest of his review of system was unremarkable. Although he appeared to be vague likely from the events on admission including the knee or code situation with hypercapnia. Objective ROS is not obtainable. HR tachycardia. S1S2 RRR. distant BS bilaterally. abdomen is benign. multiple sc hematomas. neuro non focal. awake and following commands properly. His physical exam on 03/27/2017 revealed elderly gentleman does not appear to be in any distress currently vented. He sedated with Precedex. Heart examination S1-S2 regular rate and rhythm. The patient did have an episode of SVT requiring adenosine however P-wave was obvious and the patient had normal sinus rhythm. Abdomen is benign. No edema. Neurologically with weakness on the right side. On 03/28/2017, the patient failed CPAP trial, the patient was taken off the sedation prior to the trial. His physical exam reveals occasional tachycardia was sinus rhythm. Heart examination S1-S2 regular rate and rhythm. Distant breath sounds bilaterally. Abdomen is benign no edema. Neurologically the patient remains the same. On 03/29/2017, the patient tolerated the CPAP trial with a PSV of 20 and PEEP of 5. No JVP, heart examination S1-S2 regular rate and rhythm. Lungs with distant breath sounds bilaterally, abdomen is benign but appeared distended, no edema. Hematomas has been healing. Neurologically anxious but minimally weak on the right side. On 03/30/2017, the patient was placed on the CPAP with PSV of 15 and reduce to 12, the patient tolerated the CPAP well, the patient has been on the CPAP all day long, he has distant breath sounds and no audible breath sounds on the right. Heart examination S1 and S2 slightly tachycardic at times. Abdomen is benign no edema. Neurologically difficult to assess. On 03/31/2017, the patient had stable vital signs, he had no JVP, heart examination S1-S2 regular rate and rhythm, distant breath sounds bilaterally, abdomen is benign, no edema, multiple ecchymotic area but appeared to be stable. Current SOFA Score SOFA Score Response (Comments) Value PaO2/FiO2 (mmHg) < 400 1 SaO2 / FIO2 221 - 301 1 Platelets (x10) > 150 0 Bilirubin (mg/dL) < 1.2 0 Cherise Coma Score 10 - 12 2 Level of Hypotension No Hypotension 0 Creatinine (mg/dL) < 1.2 0 Total 4 Assessment & Plan All his labs has been reviewed personally as well as his imaging. I have reviewed also the CAT scan with thoracic surgery in regard of possible treatment for the right upper lobe bullae. We will revisit that with the son and the patient continued to do well. Assessment and plan: #1 acute respiratory failure, hypoxic and hypercapnic. #2 COPD, Gold level for, home O2 dependent. #3 right lower lobe pneumonia. #4 paroxysmal A. fib not anticoagulated. #5 dysphagia. Plan: #1 I would continue with the steroids. At the current dose and decrease the dose in the morning. #2 the patient will continue on nasal cannula oxygen and placed back again on the BiPAP at night and if needed during the daytime. #3 I will continue Lasix every 8 hours. The patient remains 8 L positive since he started on Lasix 3 times daily yesterday. #4 out of bed, PT consult. #5 we will start the patient was soft diet and had a swallow eval. #6 I will stop Dilaudid. #7 continue bronchodilators scheduled rather than when necessary. #8 DVT and GI prophylaxis. #9 potential transfer to regular floor. #10 case discussed with the son, palliative care, appreciate their input. #11 I will discuss the CODE STATUS with the son once he arrives. #12 the patient will complete his antibiotics for a total of 7 days. #13 case discussed with the staff rounds details. Physical care time spent with the patient was 45 minutes. #14 previous ecchymotic area appeared to be resolving. No other skin issues. Consults & Procedures Consultants: neurology. Procedures: none today. Data Medications: Current Inpatient Medications Medications (Trade) Dose Ordered Sig/Rosemary Route Start Time Stop Time Status Last Admin Dose Admin Acetaminophen (Tylenol Tab) 650 mg Q4H PRN PO 03/18/17 20:30 04/17/17 20:29 03/26/17 08:50 650 MG Miscellaneous Information (Order Awaiting Action) 1 ea QS N/A 03/19/17 00:00 1/3/18 00:00 Enteral Nutritional Formula (Boost) 1 can BIDM PO 03/22/17 17:00 04/21/17 16:59 Future Hold 03/24/17 16:15 1 CAN Pantoprazole Sodium 40 mg/ Syringe 10 ml @ 5 mls/min DAILY@11 IV 03/26/17 11:00 04/25/17 10:59 03/30/17 09:21 5 MLS/MIN Ceftriaxone Sodium 1 gm/ Dextrose 50 ml @ 100 mls/hr DAILY@1800 IV 03/26/17 18:30 04/02/17 18:29 03/30/17 18:07 100 MLS/HR Heparin Sodium (Porcine) (Heparin Sq 5000 Unit/0.5ml) 5,000 unit Q12 SQ 03/26/17 21:00 04/25/17 20:59 03/31/17 08:39 5,000 UNIT Aspirin (Aspirin Chew) 81 mg DAILY PO 03/28/17 09:00 04/27/17 08:59 03/31/17 08:32 81 MG Methylprednisolone Sodium Succinate 40 mg/Syringe 0.64 ml @ 1.5 mls/min Q6H IV 03/29/17 16:00 04/25/17 09:59 03/31/17 04:00 1.5 MLS/MIN Albuterol/ Ipratropium (Duoneb) 3 ml Q4R INH 03/29/17 16:00 04/28/17 15:59 03/31/17 07:03 3 ML Miscellaneous Information (Consult Glycemic Management Pharmacy) 1 ea UD PRN N/A 03/29/17 14:15 04/28/17 14:14 Insulin Human Regular (novoLIN-R) SLIDING SCALE Q6 SC 03/29/17 18:00 04/28/17 17:59 03/31/17 00:10 1 UNITS Lactulose (Chronulac Syrup) 30 gm Q6 PRN PO 03/30/17 08:30 04/29/17 08:29 Alprazolam (Xanax Tab) 1 mg Q8H PO 03/30/17 11:00 04/27/17 18:59 03/30/17 11:10 1 MG Furosemide 40 mg/ Syringe 4 ml @ 4 mls/min Q8 IV 03/30/17 14:00 04/29/17 13:59 03/31/17 06:00 4 MLS/MIN Potassium Chloride (Teresa Ciel Elix) 40 meq TID PO 03/30/17 09:00 04/29/17 08:59 03/31/17 08:32 40 MEQ Insulin Glargine (Lantus Solostar Pen) BID@0600,1800 SC 03/30/17 18:00 04/29/17 17:59 Diltiazem HCl 125 mg/Dextrose 125 ml @ 0 mls/hr Q0M PRN IV 03/30/17 19:15 04/29/17 19:14 03/30/17 19:23 5 MLS/HR Vital Signs: Date Time Temp Pulse Resp B/P (MAP) Pulse Ox O2 Delivery O2 Flow Rate FiO2 03/31/17 07:05 73 99 30 03/31/17 07:04 73 24 99 BiPAP/CPAP 30 03/31/17 05:10 73 28 133/69 (90) 99 BiPAP 30 03/31/17 05:01 69 22 136/61 (86) 100 BiPAP 30 03/31/17 04:18 100 BiPAP 03/31/17 04:01 36.8 58 29 111/58 (75) 97 BiPAP 30 03/31/17 03:42 62 24 100 BiPAP/CPAP 30 03/31/17 03:41 62 100 30 03/31/17 03:01 62 31 118/59 (78) 96 BiPAP 30 03/31/17 02:01 36.8 74 32 129/76 (93) 96 BiPAP 30 03/31/17 01:01 69 23 127/63 (84) 100 BiPAP 30 03/31/17 00:03 100 BiPAP 03/31/17 00:01 36.8 62 30 96/55 (69) 99 BiPAP 30 03/30/17 23:35 79 100 30 03/30/17 23:35 79 22 100 BiPAP/CPAP 30 03/30/17 23:01 75 34 113/63 (80) 100 03/30/17 22:01 36.4 86 25 117/70 (86) 97 BiPAP 30 03/30/17 21:01 76 26 130/64 (86) 98 BiPAP 30 03/30/17 20:01 36.4 81 28 137/64 (88) 100 BiPAP 30 03/30/17 20:00 BiPAP 30 03/30/17 19:01 81 25 138/69 (92) 97 BiPAP 30 03/30/17 19:00 85 100 30 03/30/17 19:00 85 25 100 BiPAP/CPAP 30 03/30/17 18:07 99 98 30 03/30/17 18:01 81 28 131/70 (90) 99 03/30/17 18:00 80 32 100 03/30/17 17:01 80 23 116/59 (78) 97 BiPAP 30 03/30/17 17:00 81 22 99 03/30/17 16:01 87 12 126/59 (81) 100 03/30/17 16:00 89 10 99 03/30/17 15:30 30 03/30/17 15:13 30 03/30/17 15:13 95 CPAP 30 Mechanical Ventilator 03/30/17 15:01 37.7 89 16 142/68 (92) 99 03/30/17 15:00 90 22 95 03/30/17 14:22 30 03/30/17 14:01 77 9 124/73 (90) 100 03/30/17 14:00 77 6 100 03/30/17 13:27 73 7 107/52 (70) 100 03/30/17 13:00 75 6 99 03/30/17 12:00 82 6 97 03/30/17 11:54 37.7 86 7 104/59 (74) 98 Mechanical Ventilator 30 03/30/17 11:40 30 03/30/17 11:40 98 CPAP 30 Mechanical Ventilator 03/30/17 11:20 30 Laboratory Results: Last 24 Hours Test 03/30/17 11:15 03/30/17 12:17 03/30/17 18:18 03/31/17 00:06 Bedside Glucose 191 mg/dl 194 mg/dl 183 mg/dl White Blood Count 10.56 K/uL Red Blood Count 3.07 M/uL Hemoglobin 9.5 g/dL Hematocrit 30.5 % Mean Corpuscular Volume 99.3 fL Mean Corpuscular Hemoglobin 30.9 pg Mean Corpuscular Hemoglobin Concent 31.1 g/dl RDW Standard Deviation 54.7 fL RDW Coefficient of Variation 15.1 % Platelet Count 138 K/uL Mean Platelet Volume 12.2 fL Sodium Level 144 mmol/L Potassium Level 3.8 mmol/L Chloride Level 107 mmol/L Carbon Dioxide Level 34 mmol/L Anion Gap 3.0 mmol/L Blood Urea Nitrogen 51 mg/dl Creatinine 1.63 mg/dl Est Creatinine Clear Calc Drug Dose 38.1 ml/min Estimated GFR () 47.7 Estimated GFR (Non- 41.2 BUN/Creatinine Ratio 31.1 Random Glucose 192 mg/dl Calcium Level 7.9 mg/dl Troponin I 0.242 ng/ml Test 03/31/17 05:15 03/31/17 06:26 White Blood Count 9.59 K/uL Red Blood Count 3.07 M/uL Hemoglobin 9.7 g/dL Hematocrit 31.0 % Mean Corpuscular Volume 101.0 fL Mean Corpuscular Hemoglobin 31.6 pg Mean Corpuscular Hemoglobin Concent 31.3 g/dl RDW Standard Deviation 55.6 fL RDW Coefficient of Variation 15.1 % Platelet Count 124 K/uL Mean Platelet Volume 11.6 fL Activated Partial Thromboplast Time 26.2 SECONDS Partial Thromboplastin Ratio 1.0 Sodium Level 145 mmol/L Potassium Level 3.5 mmol/L Chloride Level 105 mmol/L Carbon Dioxide Level 38 mmol/L Anion Gap 2.0 mmol/L Blood Urea Nitrogen 43 mg/dl Creatinine 1.48 mg/dl Est Creatinine Clear Calc Drug Dose 41.9 ml/min Estimated GFR () 53.6 Estimated GFR (Non- 46.3 BUN/Creatinine Ratio 29.1 Random Glucose 143 mg/dl Estimated Average Glucose 91 mg/dl Hemoglobin A1c 4.8 % Calcium Level 7.6 mg/dl Bedside Glucose 134 mg/dl
[2017-03-31] MEDS: PANTOprazole INJ 40 MG in SYRINGE 0 ML IV SCH (11:29)
--- NOTE | 2017-03-31 15:33 | Progress Note ---
Medicine Progress Note Date & Time of Visit: Mar 31, 2017 at 14:15. Subjective 71 yo M admitted with COPD exacerbation from PCP office, suffered a hypoxic event after noncompliance with BIPAP on 03/25 and developed ?seizure activity. He was treated with Ativan and subsequently intubated in the ICU. He remains vented and has continued to fail CPAP trials of wean until 03/29. Family finally agreed to extubate and patient is currently on trial of BIPAP and he is 2 days s/p extubation now and on nasal canula. He is generally weak but is speaking and appears appropriate. He denies shortness of breath and is saturating well on current O2 level. He reports having intermittent chest pain but cannot comment on this further. He denies a headache or dizziness. He was able to stand up at his walker today. He passed a bedside swallow study. Objective Last 8 Hrs Date Time Temp Pulse Resp B/P (MAP) Pulse Ox O2 Delivery O2 Flow Rate FiO2 03/31/17 12:00 36.7 101 23 127/71 (89) 96 Nasal Cannula 3.0 03/31/17 12:00 Nasal Cannula 3.0 03/31/17 11:10 84 24 97 Nasal Cannula 2.0 03/31/17 10:00 78 27 143/81 (101) 96 Nasal Cannula 3.0 03/31/17 08:00 36.7 78 33 138/69 (92) 98 Nasal Cannula 3.0 03/31/17 08:00 100 Nasal Cannula 3.0 03/31/17 07:05 73 99 30 03/31/17 07:04 73 24 99 BiPAP/CPAP 30 Physical Exam: GEN: thin, elderly, frail, alert and appropriate. Appears generally weak. HEENT: NC/AT, pupils are equal and round bilaterally, normal sclerae, MMM, nasal canula in place and no respiratory distress. CARDIO: reg rate, S1/2 heard without m/g/r LUNGS: very diminished breath sounds bilaterally, no crackles, rales or wheezes were heard. ABD: soft, non-distended, no guarding. +BS EXTREMITY: RP and DP palpable 2+ bilat, no LE swelling or edema, extremities are warm and well-perfused SKIN: warm and dry Laboratory Results: 03/31/17 05:15 03/31/17 05:15 Test 03/18/17 00:00 03/18/17 17:25 03/18/17 20:14 03/19/17 00:53 Influenza Type A (RT-PCR) Neg for Influ A (NEG) Influenza Type A Antigen Neg for Influ A (NEG) Influenza Type B Antigen Neg for Influ B (NEG) Influenza Type B (RT-PCR) Neg for Influ B (NEG) Giant Platelets 1+ Polychromasia 1+ Peripheral Blood Smear Path Consult Lactic Acid Level 0.6 mmol/L (0.4-2.0) Anisocytosis PRESENT Absolute Reticulocyte Count 0.06 10^6/uL (0.02-0.10) Percent Reticulocyte Count 2.6 % (0.5-2.0) Ferritin 178.5 ng/ml (8.0-388.0) Vitamin B12 Level 559 pg/mL (211-911) Folate 10.95 ng/mL (>5.38) Test 03/20/17 05:43 03/20/17 10:03 03/22/17 05:14 03/23/17 07:22 Basophilic Stippling OCCASIONAL Iron Level 36 mcg/dl (35-175) Total Iron Binding Capacity 182 mcg/dl (250-450) Transferrin 123 mg/dl (200-360) Transferrin % Saturation 21 % (20-50) Arterial Blood pH 7.30 (7.35-7.45) Arterial Blood Partial Pressure CO2 61 mmHg (35-46) Arterial Blood Partial Pressure O2 65 mm/Hg (80-95) Arterial Blood HCO3 30 mmol/L (19-24) Arterial Blood Oxygen Saturation 91.5 % (90-95) Arterial Blood Base Excess 2.7 mEq/L (-9-1.8) Arterial Blood Gas Delivery 3 L Howard Test POS (POS) Platelet Estimate DECREASED Hypochromasia PRESENT Prostate Specific Antigen 1.680 ng/ml (0.000-4.000) Test 03/23/17 10:47 03/24/17 05:20 03/24/17 10:25 03/25/17 04:53 Urine Color YELLOW Urine Appearance CLEAR (CLEAR) Urine pH 7.5 (4.5-7.5) Urine Specific [place] 1.018 (1.000-1.030) Urine Protein NEG (NEG) Urine Glucose (UA) NEG (NEG) Urine Ketones NEG (NEG) Urine Occult Blood NEG (NEG) Urine Nitrite NEG (NEG) Urine Bilirubin NEG (NEG) Urine Urobilinogen NEG (NEG) Urine Leukocyte Esterase TRACE (NEG) Urine WBC (Auto) 1-5 /hpf (0-5) Urine RBC (Auto) 0-4 /hpf (0-4) Urine Hyaline Casts (Auto) 1-5 /lpf (0-5) Urine Epithelial Cells (Auto) >30 /lpf (0-5) Urine Bacteria (Auto) NEG (NEG) Urine Mucus PRESENT (NONE PRSENT) Urine Yeast (Auto) BUDDING (NONE PRSENT) Red Blood Cell Morphology Unremarkable Stool Occult Blood NEGATIVE (NEGATIVE) Direct Bilirubin 0.1 mg/dl (0-0.2) Test 03/25/17 06:49 03/25/17 16:07 03/28/17 05:11 03/28/17 05:16 Total Bilirubin 0.6 mg/dl (0.2-1) Aspartate Amino Transf (AST/SGOT) 14 U/L (15-37) Alanine Aminotransferase (ALT/SGPT) 16 U/L (12-78) Alkaline Phosphatase 51 U/L (45-117) Total Protein 5.4 gm/dl (6.4-8.2) Albumin 2.8 gm/dl (3.4-5.0) Globulin 2.6 gm/dl (2.5-4.0) Albumin/Globulin Ratio 1.1 (0.9-2) Prothrombin Time 10.3 SECONDS (9.0-12.0) Prothromb Time International Ratio 1.0 (0.9-1.1) Immature Granulocyte % (Auto) 0.2 % White Blood Count 4.14 K/uL (4.8-10.8) Red Blood Count 2.99 M/uL (4.7-6.1) Hemoglobin 9.3 g/dL (14.0-18.0) Hematocrit 28.9 % (42-52) Mean Corpuscular Volume 96.7 fL (80-100) Mean Corpuscular Hemoglobin 31.1 pg (25-34) Mean Corpuscular Hemoglobin Concent 32.2 g/dl (32-36) Platelet Count 124 K/uL (130-400) Mean Platelet Volume 12.6 fL (7.4-10.4) Neutrophils (%) (Auto) 88.9 % Lymphocytes (%) (Auto) 5.3 % Monocytes (%) (Auto) 5.6 % Eosinophils (%) (Auto) 0.0 % Basophils (%) (Auto) 0.0 % Neutrophils # (Auto) 3.68 K/uL (1.4-6.5) Lymphocytes # (Auto) 0.22 K/uL (1.2-3.4) Monocytes # (Auto) 0.23 K/uL (0.11-0.59) Eosinophils # (Auto) 0.00 K/uL (0-0.5) Basophils # (Auto) 0.00 K/uL (0-0.2) Immature Granulocyte # (Auto) 0.01 K/uL (0.00-0.02) Nucleated RBC Absolute Count (auto) 0.02 K/uL (0-0) Nucleated Red Blood Cells % 0.5 % Large Platelets 1+ Tear Drop Cells 1+ Blood Gas Sample Site L Radial Bedside Blood Gas pH (LAB) 7.40 (7.35-7.45) Bedside Blood Gas pCO2 (LAB) 47 mmHg (35-46) Bedside Blood Gas pO2 (LAB) 74 mmHg (80-95) Bedside Blood Gas HCO3 (LAB) 29 meq/L (19-24) Bedside Blood Gas Total CO2 30 mEq/l (24-31) Bedside Blood Gas Base Excess (LAB) 4.0 meq/L (-9-1.8) Bedside Blood Gas O2 Saturation 95.0 % (90-95) Howard Test NA Oxygen Delivery Device Ventilator Bedside Oxygen Rate (breaths/min) 12 Blood Gas Minute Ventilation 7.1 Bedside FiO2 30 % Blood Gas Tidal Volume 550 Blood Gas PEEP 5 Test 03/29/17 05:18 03/30/17 12:17 03/31/17 05:15 03/31/17 11:31 Phosphorus Level 2.7 mg/dl (2.5-4.9) Magnesium Level 2.5 mg/dl (1.8-2.4) Troponin I 0.242 ng/ml (0-0.045) Red Blood Count 3.07 M/uL (4.7-6.1) Mean Corpuscular Volume 101.0 fL (80-100) Mean Corpuscular Hemoglobin 31.6 pg (25-34) Mean Corpuscular Hemoglobin Concent 31.3 g/dl (32-36) RDW Standard Deviation 55.6 fL (36.4-46.3) RDW Coefficient of Variation 15.1 % (11.5-14.5) Mean Platelet Volume 11.6 fL (7.4-10.4) Activated Partial Thromboplast Time 26.2 SECONDS (21.0-31.0) Partial Thromboplastin Ratio 1.0 Anion Gap 2.0 mmol/L (3-11) Est Creatinine Clear Calc Drug Dose 41.9 ml/min Estimated GFR () 53.6 Estimated GFR (Non- 46.3 BUN/Creatinine Ratio 29.1 (10-20) Estimated Average Glucose 91 mg/dl Hemoglobin A1c 4.8 % (4.5-5.6) Calcium Level 7.6 mg/dl (8.5-10.1) Bedside Glucose 210 mg/dl (70-99) Date/Time Source Procedure Growth Status 03/18/17 20:10 Blood Blood Culture - Final NO GROWTH Complete 03/25/17 09:20 Nasal MRSA DNA Surveillance Screen - Final Specimen Negative for MRSA by DNA Probe Complete 03/21/17 13:30 Sputum Expectorated Sputum Gram Stain - Final Complete 03/21/17 13:30 Sputum Culture - Final Treva Albicans Complete 03/23/17 10:47 Urine , Clean Catch Urine Culture - Final Treva Albicans Complete Last 24 Hours Test 03/30/17 18:18 03/31/17 00:06 03/31/17 05:15 03/31/17 06:26 Bedside Glucose 194 mg/dl 183 mg/dl 134 mg/dl White Blood Count 9.59 K/uL Red Blood Count 3.07 M/uL Hemoglobin 9.7 g/dL Hematocrit 31.0 % Mean Corpuscular Volume 101.0 fL Mean Corpuscular Hemoglobin 31.6 pg Mean Corpuscular Hemoglobin Concent 31.3 g/dl RDW Standard Deviation 55.6 fL RDW Coefficient of Variation 15.1 % Platelet Count 124 K/uL Mean Platelet Volume 11.6 fL Activated Partial Thromboplast Time 26.2 SECONDS Partial Thromboplastin Ratio 1.0 Sodium Level 145 mmol/L Potassium Level 3.5 mmol/L Chloride Level 105 mmol/L Carbon Dioxide Level 38 mmol/L Anion Gap 2.0 mmol/L Blood Urea Nitrogen 43 mg/dl Creatinine 1.48 mg/dl Est Creatinine Clear Calc Drug Dose 41.9 ml/min Estimated GFR () 53.6 Estimated GFR (Non- 46.3 BUN/Creatinine Ratio 29.1 Random Glucose 143 mg/dl Estimated Average Glucose 91 mg/dl Hemoglobin A1c 4.8 % Calcium Level 7.6 mg/dl Test 03/31/17 11:31 Bedside Glucose 210 mg/dl Assessment & Plan 71 yo M admitted with COPD exacerbation from PCP office, suffered a hypoxic event after noncompliance with BIPAP on 03/25 and developed ?seizure activity. He was treated with Ativan and subsequently intubated in the ICU. He remains vented and has continued to fail CPAP trials of wean until 03/29. Family finally agreed to extubate and patient is currently on trial of BIPAP and he is 2 days s/p extubation now and on nasal canula. He is generally weak but is speaking and appears appropriate. He denies shortness of breath and is saturating well on current O2 level. He reports having intermittent chest pain but cannot comment on this further. He denies a headache or dizziness. He was able to stand up at his walker today. He passed a bedside swallow study. 1. Acute respiratory failure, hypoxic and hypercapnic.-Cont steroids at current dose and wean in the am. Cont nightly BIPAP and PRN during the day as needed. Cont scheduled bronchodilator therapy. Consult pulmonary. 2. COPD-dependent on home oxygen. Continues to actively smoke per family. 3. Acute systolic heart failure seen after hypoxic event. Elevated troponins. Was treated medically with heparin drip. Still having intermittent chest pain -he cannot qualify it any more than that. He cannot ID a trigger at this point. Cont Lasix 40 IV q8hrs today and decrease tomorrow. Strict I/Os, Daily weights. Cardiology consult for assistance with definitive treatment plan. 4. RLL pneumonia-completed 5 days Azithromycin. Last dose of ceftriaxone will be tomorrow. The patient will need a 4-6 weeks follow-up xray as outpatient. 5. PAF-not anticoagulated, continues on diltiazem 6. Dysphagia-Video swallow study was completed earlier during the hospitalization revealing no evidence of aspiration. Recommendations were made by [employer] including slippery diet, GERD precautions and aspiration precautions. A Barium swallow study was also recommended to better assess esophageal dysfunction. We may pursue this when he is able to stand upright for the required length of time for the test. Currently passed bedside swallow study post-extubation so will continue on current diet. 7. Ambulatory dysfunction 2/2 deconditioning from prolonged hospitalization and ICU stay. cont PT/OT efforts. He will likely need to transition through rehab on his way home. Also, pt lives at home alone. Will ensure Case Management looks into this further to ensure proper resources are available. 8. CHASITY-creatinine improved to 1.4 today with diuresis, trend PRP in am. Of note, pt is 8L positive since admission. 9. Ureteral calculus-5mm obstructing calculus present in distal right ureter noted on CT 03/23. Urology is following and considering stent depending on goals of care. Pt remains vented. No surgical intervention planned at this time while discussing goals of care. Pt is not reporting any symptoms at this time. 10. Anemia-likely multifactorial related to dilution, acute blood loss 2/2 daily phlebotomy and anemia of chronic disease. No indication for transfusion at this time. 11. Tobacco use-encouraged to quit smoking. This is imperative at this point. 12. Thrombocytopenia. DVT proph-heparin Full Code Dispo-to telemetry. DO Neisha Reyes Hospitalist Continued [facility] stay due to: multiple IV medications needed, home environment unsafe for pt, other (acute care continues in ICU) Discharge planning: uncertain Consultants: Dr. Lares-ICU Dr. Jaramillo-Urology Neuro-Dr. Denzel Fritz-[facility] Procedures: . Current Inpatient Medications: Current Inpatient Medications Medications (Trade) Dose Ordered Sig/Rosemary Route Start Time Stop Time Status Last Admin Dose Admin Acetaminophen (Tylenol Tab) 650 mg Q4H PRN PO 03/18/17 20:30 04/17/17 20:29 03/26/17 08:50 650 MG Miscellaneous Information (Order Awaiting Action) 1 ea QS N/A 03/19/17 00:00 04/18/17 00:00 Enteral Nutritional Formula (Boost) 1 can BIDM PO 03/22/17 17:00 04/21/17 16:59 Future Hold 03/24/17 16:15 1 CAN Pantoprazole Sodium 40 mg/ Syringe 10 ml @ 5 mls/min DAILY@11 IV 03/26/17 11:00 04/25/17 10:59 03/31/17 11:29 5 MLS/MIN Ceftriaxone Sodium 1 gm/ Dextrose 50 ml @ 100 mls/hr DAILY@1800 IV 03/26/17 18:30 04/02/17 18:29 03/30/17 18:07 100 MLS/HR Heparin Sodium (Porcine) (Heparin Sq 5000 Unit/0.5ml) 5,000 unit Q12 SQ 03/26/17 21:00 04/25/17 20:59 03/31/17 08:39 5,000 UNIT Aspirin (Aspirin Chew) 81 mg DAILY PO 03/28/17 09:00 04/27/17 08:59 03/31/17 08:32 81 MG Methylprednisolone Sodium Succinate 40 mg/Syringe 0.64 ml @ 1.5 mls/min Q6H IV 03/29/17 16:00 04/25/17 09:59 03/31/17 11:29 1.5 MLS/MIN Albuterol/ Ipratropium (Duoneb) 3 ml Q4R INH 03/29/17 16:00 04/28/17 15:59 03/31/17 11:10 3 ML Miscellaneous Information (Consult Glycemic Management Pharmacy) 1 ea UD PRN N/A 03/29/17 14:15 04/28/17 14:14 Lactulose (Chronulac Syrup) 30 gm Q6 PRN PO 03/30/17 08:30 04/29/17 08:29 Alprazolam (Xanax Tab) 1 mg Q8H PO 03/30/17 11:00 04/27/17 18:59 03/30/17 11:10 1 MG Furosemide 40 mg/ Syringe 4 ml @ 4 mls/min Q8 IV 03/30/17 14:00 04/29/17 13:59 03/31/17 13:16 4 MLS/MIN Potassium Chloride (Teresa Ciel Elix) 40 meq TID PO 03/30/17 09:00 04/29/17 08:59 03/31/17 13:16 40 MEQ Diltiazem HCl 125 mg/Dextrose 125 ml @ 0 mls/hr Q0M PRN IV 03/30/17 19:15 04/29/17 19:14 03/30/17 19:23 5 MLS/HR Insulin Human Regular (novoLIN-R) SLIDING SCALE ACHS SC 03/31/17 11:00 04/30/17 10:59 12/16/17 12:11 2 UNITS Insulin Glargine (Lantus Solostar Pen) BID SC 03/31/17 21:00 04/30/17 20:59
[2017-03-31] MEDS: DILTIAZEM HCL INJ 125 MG in DEXTROSE 5% 100ML IV PRN (16:02)
[2017-03-31] MEDS: CEFTRIAXONE SOD INJ 1 GM in DEXTROSE 5% ADD-VANTAGE 50ML 50 ML IV SCH (18:52)
[2017-04-01] VITALS (14 sets, daily range): BP systolic 123–146; BP diastolic 64–84; PULSE 73–95; TEMP 36.4–36.8; O2SAT 95–100
[2017-04-01] MEDS: ALPRAZOLAM 0.5 MG TAB PO SCH ×2 (03:00→11:00)
[2017-04-01] MEDS: ALBUT/IPRATROP 3MG/0.5MG NEB 3 ML VIAL INH SCH (03:32)
[2017-04-01] MEDS: METHYLPREDNISOLONE IV 40 MG in SYRINGE 0 ML IV SCH ×3 (04:28→19:45)
[2017-04-01 06:03] LABS: HEMATOCRIT 30.2 % (42-52); HEMOGLOBIN 9.3 g/dL (14.0-18.0); MEAN CELL VOLUME 101.3 fL (80-100); MEAN CORPUSCULAR HEMOGLOBIN 31.2 pg (25-34); MEAN CORPUSCULAR HGB CONC 30.8 g/dl (32-36); MEAN PLATELET VOLUME 11.7 fL (7.4-10.4); PLATELET COUNT 114 K/uL (130-400); RED CELL DISTRIBUTION WIDTH CV 14.9 % (11.5-14.5); RED CELL DISTRIBUTION WIDTH SD 54.7 fL (36.4-46.3); WHITE BLOOD COUNT 10.46 K/uL (4.8-10.8)
[2017-04-01] MEDS: FUROSEMIDE INJ 40 MG in SYRINGE 0 ML IV SCH (06:13)
[2017-04-01] MEDS: POTASSIUM CHLORIDE 20 MEQ/15 ML UDC PO SCH ×3 (06:44→19:45)
[2017-04-01] MEDS ORDERED: LEVALBUTEROL/IPRATROPIUM NEB INH PRN (06:45)
[2017-04-01 06:52] LABS: CALCIUM 7.6 mg/dl (8.5-10.1); CREATININE 1.63 mg/dl (0.60-1.40); PHOSPHORUS 2.2 mg/dl (2.5-4.9); POTASSIUM 3.5 mmol/L (3.5-5.1)
[2017-04-01] MEDS: LEVALBUTEROL 1.25MG/0.5ML NEB INH SCH ×3 (07:19→19:23)
[2017-04-01] MEDS: IPRATROPIUM BROMIDE NEB SOLN 0.02% 2.5 ML VIAL INH SCH ×3 (07:19→19:23)
[2017-04-01] MEDS: INSULIN HUMAN REGULAR SC SCH ×4 (08:10→21:44)
[2017-04-01] MEDS: HEPARIN SOD 5000 UNIT/0.5 ML CARP SQ SCH ×2 (08:12→19:48)
[2017-04-01] MEDS: INSULIN GLARGINE SOLOSTAR 100 UNITS/ML 3 ML PEN SC SCH ×2 (08:12→21:45)
[2017-04-01] MEDS: ASPIRIN 81 MG CHEW PO SCH (08:15)
[2017-04-01] MEDS ORDERED: LEVALBUTEROL/IPRATROPIUM NEB INH SCH (09:00)
[2017-04-01] MEDS: PANTOprazole INJ 40 MG in SYRINGE 0 ML IV SCH (10:33)
--- NOTE | 2017-04-01 10:39 | Pharmacy Progress Note ---
Pharmacy Glycemic Short Note 2 Date of Service Apr 01, 2017. OUTPATIENT ANTIDIABETIC REGIMEN: * N/A, no outpatient regimen, A1c is normal at 4.8% on 03/31/17 ASSESSMENT: * 71yo male with hyperglycemia secondary to stress, infection, high dose IV steroids * Patient has been receiving ~20-28 units of insulin per day with sub-optimal control * BSGs 03/31: 134, 210, 190, 229 * BSGs 04/01: 151 * Plan is to wean steroids today - will decrease CF/CR and basal insulin accordingly with step down in steroid dosing. Pt will still get 3 doses of Solu- medrol today. Will continue high stress CF/CR today and loosen tomorrow with reduced steroid dosing. PLAN FOR INPATIENT GLYCEMIC CONTROL: * Basal insulin * Lantus 6-11 units SQ BID based on BSG * Bolus insulin * NovoLog per scale ACHS or Q6hrs while NPO * Goal Range: Low 110 mg/dL - High 140 mg/dL * Correction Factor: 20 mg/dL/unit * Nutritional / Prandial insulin per carb ratio of 1 unit per 7 grams CHO consumed
--- NOTE | 2017-04-01 11:21 | Pulmonology Progress Note ---
Pulmonary Progress Note Date of Service Apr 01, 2017. Attending Dr. Burdick Subjective Patient notes improvement over the last 24-48 hours in his overall respiratory status but still notes intermittent dyspnea at [place]. Objective Patient is able sit up in bed mildly tachypneic during our interview but not using accessory muscles and only on 3 liters nasal cannula: VS: I/Os: +3.7L SaO2%: 95-100% FiO2: 3L/30% RR: 18-21 HR: 73-87 Resp: Decreased breath sounds globally Card: S1-S2 regular rate distant heart sounds unable to auscultate for murmurs rubs or gallops Abd: Positive bowel sounds soft nontender Ext: No clubbing cyanosis or edema noted, multiple hematomas Musculoskeletal: Notable discomfort to palpation along the left inferior border of the sternum associated with costochondral cartilage Studies WBC: 10K APTT: 26.2 CO2: 44 Albumin (03/25/17): 2.8 Microbiology o Expectorated sputum 03/21/2017: Treva albicans o Urine 03/23/2017: Treva albicans TTE from 03/19/2017 o Left ventricular systolic function is normal. o Ejection Fraction = 55-60%. o The right ventricular cavity size is normal (basal dimension <4.2 cm in right ventricular apical 4-chamber view). o The right ventricular systolic function is qualitatively normal. o There is mild mitral regurgitation. o There is mild tricuspid regurgitation. o The estimated systolic PAP is 55mmHg. o Dilated IVC with normal inspiratory variation suggesting RA pressure of 8mmHg. Video swallow 03/20/2017 o Penetration of thin liquids. No evidence of aspiration. o Disordered esophageal motility Pulmonary function studies 07/21/2015 FEV1 0.57/18% FVC 1.49/37% Bronchodilator significant reversibility based off FVC standards RV/TLC > 63 RV 3.73/163% DLCO not performed Active pulmonary Medications: 1. Xopenex/Atrovent nebulizer 2. Lasix 40 mg q.8 hours 3. Methylprednisolone 40 mg IV Q 6 4. Ceftriaxone 1 gram daily--to be discontinued today 5. Pantoprazole 40 mg daily Hospital course: Patient was admitted on 03/21/2017 notably in COPD exacerbation/bronchiectasis exacerbation/acute on chronic hypercapnic respiratory insufficiency. He was initially treated but ultimately failed treatment requiring intubation and ICU care. The patient required mechanical ventilation via ET tube between 03/25/2017 through 03/30/2017. During his hospital stay he was treated with steroids as well as antibiotics ceftriaxone/ azithromycin. The patient was weaned from the ventilator and due to volume overload status as he was 10 liters positive on 03/30/2017 initial/aggressive diuresis was performed with Lasix. Since that time the patient has stable eyes is able to come off BiPAP intermittently but now is having notable serum CO2 elevation of 44. I should have noted that the patient did have what appeared to be a seizure prior to ICU transfer. No subsequent seizure activity has been seen. There has also been discussions with the son about possible comfort care issues but this is not well defined. Today the patient notes that he would like to be reintubated if required. Assessment & Plan 71-year-old male with end-stage COPD and acute on chronic respiratory failure: 1. COPD: Patient is slowly improving but is requiring steroids, BiPAP as well as continuous nebulizers in still notes intermittent shortness of breath at rest. The patient has very severe/end-stage COPD as in 2016 is FEV1 is only 18 % predicted. The patient is an appropriate hospice candidate at but this time would like to be a full code. With this we should continue his current steroids but I will slowly taper these down and also current nebulizer treatments. 2. Hypercapnia/Hypercarbia: Patient has acute on chronic hypercapnia currently with hypercarbia most likely exacerbated by an aggressive diuresis regimen. This was necessary as the patient was 10 liters positive and currently is only 3.7 liters positive with notable good response. This time we will back down on his diuresis and continue to monitor his ins and outs as well as check is albumin level as it was only 2.8 on 03/25/2017 most likely with leading to decreased intra oncotic pressure and adding to his overall hypercarbia state. If the patient's albumin is still notably low will initiate albumin replacement over 24-48 hour window and monitor response. Will hold off on Diamox at this time as the patient is most likely intravascularly dry. 3. Lung volume reduction: There has been discussion about possible surgical and /or bronchoscopic attempts at lung volume reduction. This patient is not a candidate as his FEV1 is less than 20%. Data Medications: Current Inpatient Medications Medications (Trade) Dose Ordered Sig/Rosemary Route Start Time Stop Time Status Last Admin Dose Admin Acetaminophen (Tylenol Tab) 650 mg Q4H PRN PO 03/18/17 20:30 04/17/17 20:29 03/26/17 08:50 650 MG Miscellaneous Information (Order Awaiting Action) 1 ea QS N/A 03/19/17 00:00 04/18/17 00:00 Enteral Nutritional Formula (Boost) 1 can BIDM PO 03/22/17 17:00 04/21/17 16:59 Future Hold 03/24/17 16:15 1 CAN Pantoprazole Sodium 40 mg/ Syringe 10 ml @ 5 mls/min DAILY@11 IV 03/26/17 11:00 04/25/17 10:59 04/01/17 10:33 5 MLS/MIN Ceftriaxone Sodium 1 gm/ Dextrose 50 ml @ 100 mls/hr DAILY@1800 IV 03/26/17 18:30 04/01/17 18:30 03/31/17 18:52 100 MLS/HR Heparin Sodium (Porcine) (Heparin Sq 5000 Unit/0.5ml) 5,000 unit Q12 SQ 03/26/17 21:00 04/25/17 20:59 04/01/17 08:12 5,000 UNIT Aspirin (Aspirin Chew) 81 mg DAILY PO 03/28/17 09:00 04/27/17 08:59 04/01/17 08:15 81 MG Methylprednisolone Sodium Succinate 40 mg/Syringe 0.64 ml @ 1.5 mls/min Q6H IV 03/29/17 16:00 04/25/17 09:59 04/01/17 10:33 1.5 MLS/MIN Miscellaneous Information (Consult Glycemic Management Pharmacy) 1 ea UD PRN N/A 03/29/17 14:15 04/28/17 14:14 Lactulose (Chronulac Syrup) 30 gm Q6 PRN PO 03/30/17 08:30 04/29/17 08:29 Alprazolam (Xanax Tab) 1 mg Q8H PO 03/30/17 11:00 04/27/17 18:59 03/31/17 21:48 1 MG Furosemide 40 mg/ Syringe 4 ml @ 4 mls/min Q8 IV 03/30/17 14:00 04/29/17 13:59 04/01/17 06:13 4 MLS/MIN Potassium Chloride (Teresa Ciel Elix) 40 meq TID PO 03/30/17 09:00 04/29/17 08:59 04/01/17 06:44 40 MEQ Diltiazem HCl 125 mg/Dextrose 125 ml @ 0 mls/hr Q0M PRN IV 03/30/17 19:15 04/29/17 19:14 03/31/17 16:02 10 MLS/HR Insulin Human Regular (novoLIN-R) SLIDING SCALE ACHS SC 03/31/17 11:00 04/30/17 10:59 04/01/17 08:10 5 UNITS Insulin Glargine (Lantus Solostar Pen) BID SC 03/31/17 21:00 04/30/17 20:59 04/01/17 08:12 11 UNITS Ipratropium [place] (Atrovent 0.02% 0.5MG/2.5ML Neb) 0.5 mg Q6R INH 04/01/17 09:00 05/01/17 08:59 04/01/17 07:19 0.5 MG Levalbuterol (Xopenex 1.25MG/ 0.5ML Neb) 1.25 mg Q6R INH 04/01/17 09:00 05/01/17 08:59 04/01/17 07:19 1.25 MG Ipratropium [place] (Atrovent 0.02% 0.5MG/2.5ML Neb) 0.5 mg Q4H PRN INH 04/01/17 07:30 05/01/17 07:29 Levalbuterol (Xopenex 1.25MG/ 0.5ML Neb) 1.25 mg Q4H PRN INH 04/01/17 07:30 05/01/17 07:29 Vital Signs: Date Time Temp Pulse Resp B/P (MAP) Pulse Ox O2 Delivery O2 Flow Rate FiO2 04/01/17 08:09 36.7 87 18 139/69 (92) 100 04/01/17 08:00 Nasal Cannula 3.0 04/01/17 07:19 73 20 100 Nasal Cannula 3.0 04/01/17 06:26 81 20 138/84 (102) 95 Nasal Cannula 3.0 04/01/17 04:30 98 BiPAP 30 04/01/17 03:34 75 21 97 BiPAP/CPAP 3.0 04/01/17 03:34 75 97 30 04/01/17 03:28 36.5 73 20 123/69 (87) 96 BiPAP 04/01/17 00:00 98 BiPAP 03/31/17 23:06 36.7 75 22 110/53 (72) 94 BiPAP 03/31/17 22:49 81 98 30 03/31/17 22:45 81 22 98 Nasal Cannula 3.0 03/31/17 21:30 98 Nasal Cannula 3.0 03/31/17 19:34 36.8 91 31 145/65 (91) 99 Nasal Cannula 4.0 31 03/31/17 19:08 88 20 97 Nasal Cannula 3.0 03/31/17 16:00 36.7 82 30 137/68 (91) 98 Nasal Cannula 3.0 03/31/17 16:00 Nasal Cannula 3.0 03/31/17 15:10 86 22 97 Nasal Cannula 3.0 03/31/17 14:00 95 27 146/65 (92) 96 Nasal Cannula 3.0 03/31/17 12:00 36.7 101 23 127/71 (89) 96 Nasal Cannula 3.0 03/31/17 12:00 Nasal Cannula 3.0 03/31/17 11:10 84 24 97 Nasal Cannula 2.0 Laboratory Results: Last 24 Hours Test 03/31/17 11:31 03/31/17 16:19 03/31/17 21:57 04/01/17 05:30 Bedside Glucose 210 mg/dl 190 mg/dl 229 mg/dl White Blood Count 10.46 K/uL Red Blood Count 2.98 M/uL Hemoglobin 9.3 g/dL Hematocrit 30.2 % Mean Corpuscular Volume 101.3 fL Mean Corpuscular Hemoglobin 31.2 pg Mean Corpuscular Hemoglobin Concent 30.8 g/dl RDW Standard Deviation 54.7 fL RDW Coefficient of Variation 14.9 % Platelet Count 114 K/uL Mean Platelet Volume 11.7 fL Sodium Level 143 mmol/L Potassium Level 3.5 mmol/L Chloride Level 97 mmol/L Carbon Dioxide Level 44 mmol/L Anion Gap 2.0 mmol/L Blood Urea Nitrogen 40 mg/dl Creatinine 1.63 mg/dl Est Creatinine Clear Calc Drug Dose 33.7 ml/min Estimated GFR () 47.7 Estimated GFR (Non- 41.2 BUN/Creatinine Ratio 24.4 Random Glucose 146 mg/dl Calcium Level 7.6 mg/dl Phosphorus Level 2.2 mg/dl Magnesium Level 1.9 mg/dl Test 04/01/17 06:37 04/01/17 08:47 Bedside Glucose 151 mg/dl Arterial Blood pH 7.40 Arterial Blood Partial Pressure CO2 69 mmHg Arterial Blood Partial Pressure O2 89 mm/Hg Arterial Blood HCO3 42 mmol/L Arterial Blood Oxygen Saturation 96.3 % Arterial Blood Base Excess 14.8 mEq/L Arterial Blood Gas Delivery 4L Howard Test POS
--- NOTE | 2017-04-01 13:06 | ECHOCARDIOGRAM REPORT ---
*NOTICE TO RECEIVING REPUBLICAN AGENCY This information is strictly Confidential and protected under [place] law. [place] law prohibits you from making any further disclosure of this information unless further disclosure is expressly permitted by the written consent of the person to whom it pertains or is authorized by law. A general authorization for the release of medical or other information is not sufficient for this purpose. Hospital accepts no responsibility if the information is made available to any other person, INCLUDING THE PATIENT. Interpretation Summary * Name: KALYN STEPHEN Study Date: 04/01/2017 11:16 AM BP: 139/69 mmHg * Patient Location: [facility] HR: 82 * : 1945 (M/d/yyyy) Gender: Male Height: 69 in * Age: 71 yrs Ethnicity: [place] Weight: 130 lb * Ordering Physician: Tapan Verma DO * Referring Physician: Tapan Verma DO * Performed By: Lisa Cuello RCS * * Reason For Study: CHEST PAIN * BSA: 1.7 m2 * -- Conclusions -- * Compared to previous study: LV systolic function has improved. * Normal LV chamber size with mild concentric LVH. * Mildly reduced LV systolic function with mild global hypokinesis, EF 45-50%. Procedure Details * Limited views were obtained. Left Ventricle * The left ventricle is normal in size. * There is mild concentric left ventricular hypertrophy. * Left ventricular systolic function is mildly reduced. * Ejection Fraction = 45-50%. * There is mild global hypokinesis of the left ventricle. MMode 2D Measurements and Calculations IVSd 1.2 cm IVSs 1.7 cm LVIDd 5.4 cm LVIDs 3.7 cm LVPWd 1.3 cm LVPWs 1.5 cm IVS/LVPW 0.92 FS 30.7 % EDV(Teich) 141.1 ml ESV(Teich) 59.6 ml EF(Teich) 57.7 % EDV(cubed) 157.1 ml ESV(cubed) 52.3 ml EF(cubed) 66.7 % % IVS thick 40.3 % % LVPW thick 15.2 % LV mass(C)d 289.2 grams LV mass(C)dI 168.1 grams/m\S\2 LV mass(C)s 242.4 grams LV mass(C)sI 140.9 grams/m\S\2 SV(Teich) 81.5 ml SI(Teich) 47.4 ml/m\S\2 SV(cubed) 104.8 ml SI(cubed) 60.9 ml/m\S\2
--- NOTE | 2017-04-01 14:06 | CARDIOLOGY CONSULTATION ---
DATE OF CONSULTATION: 04/01/2017 CONSULTATION REQUESTED BY: Pamela Moreno DO REASON FOR CONSULTATION: Chest pain and elevated troponin. HISTORY OF PRESENT ILLNESS: Mr. De La Cruz is a very pleasant yet medically complex 71-year-old gentleman who was originally admitted to [facility] on 03/18/2017, per recommendation of his primary care physician for acute respiratory failure. The patient has had a prolonged hospital course which included prolonged intubation and mechanical ventilation. He was ultimately transferred out of the intensive care unit on 03/31/2017, and he states that since being extubated, his breathing has been steadily improving. He does admit that he was working significantly to breathe last night into this morning and then this morning when he stood up to wash himself, he developed abdominal discomfort. He states it was right in the middle between his abdomen and his low chest and he points to his upper epigastric area. He described it as sharp and stabbing with standing up and states it has slowly been improving since then. He states it is worse with deep inhalation or movement. Otherwise, his breathing has been steadily improving and he denies experiencing any palpitations, lightheadedness, dizziness, or syncope. Of note, patient's echocardiogram upon admission showed normal LV systolic function without regional wall motion abnormality; however, an echocardiogram was repeated on March 26, which showed moderate global hypokinesis. He also had a minimal troponin elevation on March 25 with a peak of 1.4. PAST SURGICAL HISTORY: 1. Bronchoscopy. 2. EGD. 3. Colonoscopy. MEDICAL ILLNESSES: 1. COPD. 2. Chronic respiratory failure, on home O2. 3. Chronic tobacco abuse, ongoing. 4. BPH. 5. GERD. 6. Diverticulosis. 7. History of musculoskeletal chest pain on previous admission. 8. Chronic thrombocytopenia. FAMILY HISTORY: Noncontributory. SOCIAL HISTORY: The patient is a lifelong smoker, recently stopped. Denies any alcohol or recreational drug use. He lives alone. REVIEW OF SYSTEMS: As per HPI, all other review of systems reviewed and negative at this time. ALLERGIES: 1. POLLEN. 2. LACTOSE. CURRENT MEDICATIONS: 1. Lasix 40 mg IV q. 8 hours. 2. Potassium chloride 40 mEq q. 8 hours. 3. Methylprednisolone IV. 4. Aspirin 81 mg daily. 5. Subcutaneous heparin for DVT prophylaxis. 6. Ceftriaxone. 7. Cardizem drip, which is currently off. 8. Insulin. 9. Nebulizer treatments. PHYSICAL EXAMINATION: VITALS: Temperature 36.7, pulse 87, respiratory rate 12, blood pressure 139/69. GENERAL: Awake, alert, oriented x3, thin, cachectic, mild conversational dyspnea. HEENT: Normocephalic, atraumatic. Pupils equal, round and reactive to light and accommodation. Extraocular muscles intact. Anicteric sclerae. Moist mucous membranes. NECK: No JVD, no bruit. CARDIOVASCULAR: Regular but distant. Unable to appreciate murmurs, rubs or gallops. PULMONARY: Poor air movement throughout. No rales, rhonchi, or wheezing. ABDOMEN: Bowel sounds x4, soft, discomfort was reproduced with direct palpation of his right upper epigastric area. No rebound or guarding. No organomegaly. EXTREMITIES: No clubbing or cyanosis. +1 pedal pulses bilaterally. SKIN: Warm and dry. LABORATORY STUDIES OF SIGNIFICANCE: Peak troponin of 1.4 on 03/25/2017. TEST RESULTS: A 12-lead EKG performed most recently 03/30/2017, independently reviewed at this time shows sinus rhythm with premature atrial complexes, T-wave inversions diffusely. A 2D echocardiogram performed 03/19/2017 was reported as normal LV systolic function, EF 55% to 60%, normal RV systolic function, mild mitral regurgitation, mild tricuspid regurgitation, pulmonary hypertension was present with a pulmonary systolic pressure of 55 mmHg. Repeat echocardiogram performed 03/26/2017 showed moderate left ventricular global hypokinesis, EF 30% to 35%. IMPRESSION: 1. Musculoskeletal abdominal pain likely secondary to work of breathing. 2. Reduced left ventricular systolic function in the setting of intubation an acute chronic obstructive pulmonary disease exacerbation with pneumonia. 3. Chronic respiratory failure. 4. Chronic obstructive pulmonary disease. RECOMMENDATIONS: It was my pleasure to see Mr. De La Cruz in consultation today. From a cardiac standpoint, his pain is reproducible in his epigastric area and I believe this represents musculoskeletal strain due to the work of breathing. More of a concern is the fact that this is recent LV function decrease and I believe this is most likely due to metabolic demands given the need for intubation. So at this time, we will repeat a limited echocardiogram. Should the LV systolic function improve, then we will initiate optimal medical therapy. Otherwise, should it not improve or decrease, then ischemic evaluation can be undertaken with a Lexiscan nuclear stress test. Otherwise, he should be continued on his aspirin. The patient was on a Cardizem drip; however, we do not have any documentation obvious to me at this time, showing that he was in a supraventricular tachycardia, so it has been discontinued and he is now sinus in the 80s and he will remain off.
--- NOTE | 2017-04-01 14:18 | Progress Note ---
Medicine Progress Note Date & Time of Visit: Apr 01, 2017 at 1100. Subjective 71 yo M admitted with COPD exacerbation from PCP office, suffered a hypoxic event after noncompliance with BIPAP on 03/25 and developed ?seizure activity. He was treated with Ativan and subsequently intubated in the ICU. He remained vented from 03/25- and was successfully extubated. He was transferred to [facility] yesterday and is doing well on nasal canula and BIPAP at night. He denies any SOB, chest pain, or any other pain anywhere. He denies any issues with swallowing and denies that food gets stuck in his esophagus on the modified diet currently. He reports profound weakness. Objective Last 8 Hrs Date Time Temp Pulse Resp B/P (MAP) Pulse Ox O2 Delivery O2 Flow Rate FiO2 04/01/17 12:00 Nasal Cannula 2.0 04/01/17 11:55 36.5 86 18 134/73 (93) 96 Nasal Cannula 04/01/17 08:09 36.7 87 18 139/69 (92) 100 04/01/17 08:00 Nasal Cannula 3.0 04/01/17 07:19 73 20 100 Nasal Cannula 3.0 04/01/17 06:26 81 20 138/84 (102) 95 Nasal Cannula 3.0 Physical Exam: GEN: thin, elderly, frail, alert and appropriate. Appears generally weak. HEENT: NC/AT, pupils are equal and round bilaterally, normal sclerae, MMM, nasal canula in place and no respiratory distress. CARDIO: reg rate, S1/2 heard without m/g/r LUNGS: very diminished breath sounds bilaterally, no crackles, rales or wheezes were heard. ABD: soft, non-distended, no guarding. +BS EXTREMITY: RP and DP palpable 2+ bilat, no LE swelling or edema, extremities are warm and well-perfused SKIN: warm and dry Laboratory Results: 04/01/17 05:30 04/01/17 05:30 Test 03/18/17 00:00 03/18/17 17:25 03/18/17 20:14 03/19/17 00:53 Influenza Type A (RT-PCR) Neg for Influ A (NEG) Influenza Type A Antigen Neg for Influ A (NEG) Influenza Type B Antigen Neg for Influ B (NEG) Influenza Type B (RT-PCR) Neg for Influ B (NEG) Giant Platelets 1+ Polychromasia 1+ Peripheral Blood Smear Path Consult Lactic Acid Level 0.6 mmol/L (0.4-2.0) Anisocytosis PRESENT Absolute Reticulocyte Count 0.06 10^6/uL (0.02-0.10) Percent Reticulocyte Count 2.6 % (0.5-2.0) Ferritin 178.5 ng/ml (8.0-388.0) Vitamin B12 Level 559 pg/mL (211-911) Folate 10.95 ng/mL (>5.38) Test 03/20/17 05:43 03/22/17 05:14 03/23/17 07:22 03/23/17 10:47 Basophilic Stippling OCCASIONAL Iron Level 36 mcg/dl (35-175) Total Iron Binding Capacity 182 mcg/dl (250-450) Transferrin 123 mg/dl (200-360) Transferrin % Saturation 21 % (20-50) Platelet Estimate DECREASED Hypochromasia PRESENT Prostate Specific Antigen 1.680 ng/ml (0.000-4.000) Urine Color YELLOW Urine Appearance CLEAR (CLEAR) Urine pH 7.5 (4.5-7.5) Urine Specific [place] 1.018 (1.000-1.030) Urine Protein NEG (NEG) Urine Glucose (UA) NEG (NEG) Urine Ketones NEG (NEG) Urine Occult Blood NEG (NEG) Urine Nitrite NEG (NEG) Urine Bilirubin NEG (NEG) Urine Urobilinogen NEG (NEG) Urine Leukocyte Esterase TRACE (NEG) Urine WBC (Auto) 1-5 /hpf (0-5) Urine RBC (Auto) 0-4 /hpf (0-4) Urine Hyaline Casts (Auto) 1-5 /lpf (0-5) Urine Epithelial Cells (Auto) >30 /lpf (0-5) Urine Bacteria (Auto) NEG (NEG) Urine Mucus PRESENT (NONE PRSENT) Urine Yeast (Auto) BUDDING (NONE PRSENT) Test 03/24/17 05:20 03/24/17 10:25 03/25/17 04:53 03/25/17 06:49 Red Blood Cell Morphology Unremarkable Stool Occult Blood NEGATIVE (NEGATIVE) Direct Bilirubin 0.1 mg/dl (0-0.2) Total Bilirubin 0.6 mg/dl (0.2-1) Aspartate Amino Transf (AST/SGOT) 14 U/L (15-37) Alanine Aminotransferase (ALT/SGPT) 16 U/L (12-78) Alkaline Phosphatase 51 U/L (45-117) Total Protein 5.4 gm/dl (6.4-8.2) Albumin 2.8 gm/dl (3.4-5.0) Globulin 2.6 gm/dl (2.5-4.0) Albumin/Globulin Ratio 1.1 (0.9-2) Test 03/25/17 16:07 03/28/17 05:11 03/28/17 05:16 03/30/17 12:17 Prothrombin Time 10.3 SECONDS (9.0-12.0) Prothromb Time International Ratio 1.0 (0.9-1.1) Immature Granulocyte % (Auto) 0.2 % White Blood Count 4.14 K/uL (4.8-10.8) Red Blood Count 2.99 M/uL (4.7-6.1) Hemoglobin 9.3 g/dL (14.0-18.0) Hematocrit 28.9 % (42-52) Mean Corpuscular Volume 96.7 fL (80-100) Mean Corpuscular Hemoglobin 31.1 pg (25-34) Mean Corpuscular Hemoglobin Concent 32.2 g/dl (32-36) Platelet Count 124 K/uL (130-400) Mean Platelet Volume 12.6 fL (7.4-10.4) Neutrophils (%) (Auto) 88.9 % Lymphocytes (%) (Auto) 5.3 % Monocytes (%) (Auto) 5.6 % Eosinophils (%) (Auto) 0.0 % Basophils (%) (Auto) 0.0 % Neutrophils # (Auto) 3.68 K/uL (1.4-6.5) Lymphocytes # (Auto) 0.22 K/uL (1.2-3.4) Monocytes # (Auto) 0.23 K/uL (0.11-0.59) Eosinophils # (Auto) 0.00 K/uL (0-0.5) Basophils # (Auto) 0.00 K/uL (0-0.2) Immature Granulocyte # (Auto) 0.01 K/uL (0.00-0.02) Nucleated RBC Absolute Count (auto) 0.02 K/uL (0-0) Nucleated Red Blood Cells % 0.5 % Large Platelets 1+ Tear Drop Cells 1+ Blood Gas Sample Site L Radial Bedside Blood Gas pH (LAB) 7.40 (7.35-7.45) Bedside Blood Gas pCO2 (LAB) 47 mmHg (35-46) Bedside Blood Gas pO2 (LAB) 74 mmHg (80-95) Bedside Blood Gas HCO3 (LAB) 29 meq/L (19-24) Bedside Blood Gas Total CO2 30 mEq/l (24-31) Bedside Blood Gas Base Excess (LAB) 4.0 meq/L (-9-1.8) Bedside Blood Gas O2 Saturation 95.0 % (90-95) Oxygen Delivery Device Ventilator Bedside Oxygen Rate (breaths/min) 12 Blood Gas Minute Ventilation 7.1 Bedside FiO2 30 % Blood Gas Tidal Volume 550 Blood Gas PEEP 5 Troponin I 0.242 ng/ml (0-0.045) Test 03/31/17 05:15 04/01/17 05:30 04/01/17 08:47 04/01/17 11:25 Activated Partial Thromboplast Time 26.2 SECONDS (21.0-31.0) Partial Thromboplastin Ratio 1.0 Estimated Average Glucose 91 mg/dl Hemoglobin A1c 4.8 % (4.5-5.6) Red Blood Count 2.98 M/uL (4.7-6.1) Mean Corpuscular Volume 101.3 fL (80-100) Mean Corpuscular Hemoglobin 31.2 pg (25-34) Mean Corpuscular Hemoglobin Concent 30.8 g/dl (32-36) RDW Standard Deviation 54.7 fL (36.4-46.3) RDW Coefficient of Variation 14.9 % (11.5-14.5) Mean Platelet Volume 11.7 fL (7.4-10.4) Anion Gap 2.0 mmol/L (3-11) Est Creatinine Clear Calc Drug Dose 33.7 ml/min Estimated GFR () 47.7 Estimated GFR (Non- 41.2 BUN/Creatinine Ratio 24.4 (10-20) Calcium Level 7.6 mg/dl (8.5-10.1) Phosphorus Level 2.2 mg/dl (2.5-4.9) Magnesium Level 1.9 mg/dl (1.8-2.4) Arterial Blood pH 7.40 (7.35-7.45) Arterial Blood Partial Pressure CO2 69 mmHg (35-46) Arterial Blood Partial Pressure O2 89 mm/Hg (80-95) Arterial Blood HCO3 42 mmol/L (19-24) Arterial Blood Oxygen Saturation 96.3 % (90-95) Arterial Blood Base Excess 14.8 mEq/L (-9-1.8) Arterial Blood Gas Delivery 4L Howard Test POS (POS) Bedside Glucose 198 mg/dl (70-99) Date/Time Source Procedure Growth Status 03/18/17 20:10 Blood Blood Culture - Final NO GROWTH Complete 03/25/17 09:20 Nasal MRSA DNA Surveillance Screen - Final Specimen Negative for MRSA by DNA Probe Complete 03/21/17 13:30 Sputum Expectorated Sputum Gram Stain - Final Complete 03/21/17 13:30 Sputum Culture - Final Treva Albicans Complete 03/23/17 10:47 Urine , Clean Catch Urine Culture - Final Treva Albicans Complete Last 24 Hours Test 03/31/17 16:19 03/31/17 21:57 04/01/17 05:30 04/01/17 06:37 Bedside Glucose 190 mg/dl 229 mg/dl 151 mg/dl White Blood Count 10.46 K/uL Red Blood Count 2.98 M/uL Hemoglobin 9.3 g/dL Hematocrit 30.2 % Mean Corpuscular Volume 101.3 fL Mean Corpuscular Hemoglobin 31.2 pg Mean Corpuscular Hemoglobin Concent 30.8 g/dl RDW Standard Deviation 54.7 fL RDW Coefficient of Variation 14.9 % Platelet Count 114 K/uL Mean Platelet Volume 11.7 fL Sodium Level 143 mmol/L Potassium Level 3.5 mmol/L Chloride Level 97 mmol/L Carbon Dioxide Level 44 mmol/L Anion Gap 2.0 mmol/L Blood Urea Nitrogen 40 mg/dl Creatinine 1.63 mg/dl Est Creatinine Clear Calc Drug Dose 33.7 ml/min Estimated GFR () 47.7 Estimated GFR (Non- 41.2 BUN/Creatinine Ratio 24.4 Random Glucose 146 mg/dl Calcium Level 7.6 mg/dl Phosphorus Level 2.2 mg/dl Magnesium Level 1.9 mg/dl Test 04/01/17 08:47 04/01/17 11:25 Arterial Blood pH 7.40 Arterial Blood Partial Pressure CO2 69 mmHg Arterial Blood Partial Pressure O2 89 mm/Hg Arterial Blood HCO3 42 mmol/L Arterial Blood Oxygen Saturation 96.3 % Arterial Blood Base Excess 14.8 mEq/L Arterial Blood Gas Delivery 4L Howard Test POS Bedside Glucose 198 mg/dl Assessment & Plan 71 yo M admitted with COPD exacerbation from PCP office, suffered a hypoxic event after noncompliance with BIPAP on 03/25 and developed ?seizure activity. He was treated with Ativan and subsequently intubated in the ICU. He remained vented from 03/25- and was successfully extubated. He was transferred to [facility] yesterday and is doing well on nasal canula and BIPAP at night. He denies any SOB, chest pain, or any other pain anywhere. He denies any issues with swallowing and denies that food gets stuck in his esophagus on the modified diet currently. He reports profound weakness. 1. Acute respiratory failure, hypoxic and hypercapnic.-improved. Pulm saw patient today and made recs for slow steroid taper moving him to 40IV BID today. Apprec recs. Cont nightly BIPAP and PRN during the day as needed. Cont scheduled bronchodilator therapy. 2. COPD-dependent on home oxygen. Continues to actively smoke per family. He is not a candidate for LVRS 2/2 his low FEV1 of <20%. 3. Acute systolic heart failure seen after hypoxic event with elevated troponins. Was treated medically with heparin drip. Denies any chest pain today. Cardiology consulted and performed an TTE today revealing improvement in LV function with some global HK. Lasix is being stopped as the aggressive diuresis is raising his bicarb and causing an alkalosis. He continues on ASA-- apprec Cardiology recs for management. 4. RLL pneumonia-completed 5 days Azithromycin. Last dose of ceftriaxone will be today. The patient will need a 4-6 weeks follow-up xray as outpatient. 5. PAF-not anticoagulated, continues on diltiazem 6. Dysphagia-Video swallow study was completed earlier during the hospitalization revealing no evidence of aspiration. Recommendations were made by [employer] including slippery diet, GERD precautions and aspiration precautions. A Barium swallow study was also recommended to better assess esophageal dysfunction. We may pursue this when he is able to stand upright for the required length of time for the test. Currently passed bedside swallow study post-extubation so will continue on current diet. He is doing well on this. Too weak to stand for further studies at this time. 7. Ambulatory dysfunction 2/2 deconditioning from prolonged hospitalization and ICU stay. cont PT/OT efforts. He will likely need to transition through rehab on his way home. Also, pt lives at home alone. Will ensure Case Management looks into this further to ensure proper resources are available. 8. CHASITY-creatinine went from 1.4 to 1.6 likely related to aggressive diuresis. Will hold on this now and monitor PRP in the morning. 9. Ureteral calculus-5mm obstructing calculus present in distal right ureter noted on CT 03/23. Urology is following and considered stent, however, he has clinically improved and is not reporting any pain. 10. Anemia-likely multifactorial related to dilution, acute blood loss 2/2 daily phlebotomy and anemia of chronic disease. No indication for transfusion at this time. 11. Tobacco use-encouraged to quit smoking. This is imperative at this point. 12. Thrombocytopenia. DVT proph-heparin Full Code Dispo-to telemetry. Pamela Moreno DO [facility] Hospitalist Continued [facility] stay due to: multiple IV medications needed, home environment unsafe for pt, other (acute care continues in ICU) Discharge planning: uncertain Consultants: Dr. Lares-ICU Dr. Jaramillo-Urology Neuro-Dr. Denzel Fritz-[facility] Procedures: . Current Inpatient Medications: Current Inpatient Medications Medications (Trade) Dose Ordered Sig/Rosemary Route Start Time Stop Time Status Last Admin Dose Admin Acetaminophen (Tylenol Tab) 650 mg Q4H PRN PO 03/18/17 20:30 04/17/17 20:29 03/26/17 08:50 650 MG Miscellaneous Information (Order Awaiting Action) 1 ea QS N/A 03/19/17 00:00 04/18/17 00:00 Enteral Nutritional Formula (Boost) 1 can BIDM PO 03/22/17 17:00 04/21/17 16:59 Future Hold 03/24/17 16:15 1 CAN Pantoprazole Sodium 40 mg/ Syringe 10 ml @ 5 mls/min DAILY@11 IV 03/26/17 11:00 04/25/17 10:59 04/01/17 10:33 5 MLS/MIN Ceftriaxone Sodium 1 gm/ Dextrose 50 ml @ 100 mls/hr DAILY@1800 IV 03/26/17 18:30 04/01/17 18:30 03/31/17 18:52 100 MLS/HR Heparin Sodium (Porcine) (Heparin Sq 5000 Unit/0.5ml) 5,000 unit Q12 SQ 03/26/17 21:00 04/25/17 20:59 04/01/17 08:12 5,000 UNIT Aspirin (Aspirin Chew) 81 mg DAILY PO 03/28/17 09:00 04/27/17 08:59 04/01/17 08:15 81 MG Miscellaneous Information (Consult Glycemic Management Pharmacy) 1 ea UD PRN N/A 03/29/17 14:15 04/28/17 14:14 Lactulose (Chronulac Syrup) 30 gm Q6 PRN PO 03/30/17 08:30 04/29/17 08:29 Alprazolam (Xanax Tab) 1 mg Q8H PO 03/30/17 11:00 04/27/17 18:59 03/31/17 21:48 1 MG Potassium Chloride (Teresa Ciel Elix) 40 meq TID PO 03/30/17 09:00 04/29/17 08:59 04/01/17 06:44 40 MEQ Diltiazem HCl 125 mg/Dextrose 125 ml @ 0 mls/hr Q0M PRN IV 03/30/17 19:15 04/29/17 19:14 03/31/17 16:02 10 MLS/HR Insulin Human Regular (novoLIN-R) SLIDING SCALE ACHS SC 03/31/17 11:00 04/30/17 10:59 04/01/17 12:19 6 UNITS Insulin Glargine (Lantus Solostar Pen) BID SC 03/31/17 21:00 04/30/17 20:59 04/01/17 08:12 11 UNITS Ipratropium [place] (Atrovent 0.02% 0.5MG/2.5ML Neb) 0.5 mg Q6R INH 04/01/17 09:00 05/01/17 08:59 04/01/17 14:05 0.5 MG Levalbuterol (Xopenex 1.25MG/ 0.5ML Neb) 1.25 mg Q6R INH 04/01/17 09:00 05/01/17 08:59 04/01/17 14:06 1.25 MG Ipratropium [place] (Atrovent 0.02% 0.5MG/2.5ML Neb) 0.5 mg Q4H PRN INH 04/01/17 07:30 05/01/17 07:29 Levalbuterol (Xopenex 1.25MG/ 0.5ML Neb) 1.25 mg Q4H PRN INH 04/01/17 07:30 05/01/17 07:29 Methylprednisolone Sodium Succinate 40 mg/Syringe 0.64 ml @ 1.5 mls/min BID IV 04/01/17 21:00 04/25/17 09:59
[2017-04-01] MEDS: CEFTRIAXONE SOD INJ 1 GM in DEXTROSE 5% ADD-VANTAGE 50ML 50 ML IV SCH (17:21)
[2017-04-01] MEDS ORDERED: ALPRAZOLAM 0.5 MG TAB PO PRN (19:00)
[2017-04-02] VITALS (11 sets, daily range): BP systolic 114–144; BP diastolic 61–71; PULSE 63–107; TEMP 36.6–37; O2SAT 96–100
[2017-04-02] MEDS: IPRATROPIUM BROMIDE NEB SOLN 0.02% 2.5 ML VIAL INH SCH ×4 (01:37→19:50)
[2017-04-02] MEDS: LEVALBUTEROL 1.25MG/0.5ML NEB INH SCH ×4 (01:37→19:50)
[2017-04-02 06:35] LABS: ALBUMIN 2.7 gm/dl (3.4-5.0); CALCIUM 8.1 mg/dl (8.5-10.1); CREATININE 1.41 mg/dl (0.60-1.40)
[2017-04-02 06:45] LABS: POTASSIUM 4.5 mmol/L (3.5-5.1)
[2017-04-02] MEDS: POTASSIUM CHLORIDE 20 MEQ/15 ML UDC PO SCH ×3 (07:53→21:36)
[2017-04-02] MEDS: METHYLPREDNISOLONE IV 40 MG in SYRINGE 0 ML IV SCH ×2 (07:53→21:36)
--- NOTE | 2017-04-02 07:58 | Progress Note ---
Subjective Date of Service: Apr 02, 2017. Subjective Pt evaluation today including: conversation w/ patient, chart review, lab review Voiding: villa catheter in place (patent, draining clear, yellow urine) 71 yo male with 5mm distal right ureteral stone. Gross hematuria has resolved. Villa draining clear, yellow urine. Cr stable at 1.41. Pt successfully extubated. Attempted to wake the pt this morning to speak with him. He did open his eyes to verbal stimuli, but quickly fell back asleep twice without responding to my questions. Problem List Medical Problems: (1) COPD exacerbation Status: Acute (2) Hypoxia Status: Acute (3) Pancytopenia Status: Acute (4) Pneumonia Status: Acute Review of Systems Pt opened eyes when asking him questions this morning, but did not respond and quickly returned to sleep. Objective Vital Signs Date Time Temp Pulse Resp B/P (MAP) Pulse Ox O2 Delivery O2 Flow Rate FiO2 04/02/17 04:00 96 Nasal Cannula 2.0 04/02/17 04:00 36.9 73 22 114/71 (85) 96 Nasal Cannula 2.0 04/02/17 01:37 63 20 99 Nasal Cannula 2.0 04/02/17 00:10 36.8 70 24 131/67 (88) 97 04/01/17 23:44 98 Nasal Cannula 2.0 04/01/17 19:45 98 Nasal Cannula 2.0 04/01/17 19:23 91 20 98 Nasal Cannula 2.0 04/01/17 19:06 36.4 95 21 146/69 (94) 98 Nasal Cannula 2.0 04/01/17 16:00 Nasal Cannula 2.0 04/01/17 15:15 36.8 91 30 137/64 (88) 98 Nasal Cannula 2.0 04/01/17 14:07 78 20 95 Nasal Cannula 2.0 04/01/17 12:00 Nasal Cannula 2.0 04/01/17 11:55 36.5 86 18 134/73 (93) 96 Nasal Cannula 04/01/17 08:09 36.7 87 18 139/69 (92) 100 04/01/17 08:00 Nasal Cannula 3.0 Physical Exam General Appearance: no apparent distress Eyes: normal inspection ENT: hearing grossly normal Neck: no JVD Respiratory/Chest: no respiratory distress, no accessory muscle use Cardiovascular: no JVD Extremities: normal inspection Neurologic/Psychiatric: alert, + pertinent finding (lethargic) Skin: normal color Laboratory Results Last 24 Hours Test 04/01/17 08:47 04/01/17 11:25 04/01/17 15:58 04/01/17 20:15 Arterial Blood pH 7.40 Arterial Blood Partial Pressure CO2 69 mmHg Arterial Blood Partial Pressure O2 89 mm/Hg Arterial Blood HCO3 42 mmol/L Arterial Blood Oxygen Saturation 96.3 % Arterial Blood Base Excess 14.8 mEq/L Arterial Blood Gas Delivery 4L Howard Test POS Bedside Glucose 198 mg/dl 118 mg/dl 153 mg/dl Test 04/02/17 05:22 04/02/17 06:36 Sodium Level 141 mmol/L Potassium Level 4.5 mmol/L Chloride Level 95 mmol/L Carbon Dioxide Level 43 mmol/L Anion Gap 3.0 mmol/L Blood Urea Nitrogen 39 mg/dl Creatinine 1.41 mg/dl Est Creatinine Clear Calc Drug Dose 38.9 ml/min Estimated GFR () 56.9 Estimated GFR (Non- 49.1 BUN/Creatinine Ratio 27.7 Random Glucose 114 mg/dl Calcium Level 8.1 mg/dl Magnesium Level 2.0 mg/dl Albumin 2.7 gm/dl Prealbumin 22.4 mg/dl Bedside Glucose 116 mg/dl Assessment and Plan A/P: Gross hematuria, Right ureteral stone, fever, UTI AFVSS. Gross hematuria resolved. Will repeat a UC&S today. As for the pt's stone. Will check a KUB this today. Plan to avoid any intervention unless the pt were to decompensate, develop fever, or ARF. The pt would optimally need optimized for surgery with cardiac and medical clearance and I'm not certain he is an optimal candidate at this point. Would currently plan for stone intervention as an outpatient once the pt has been optimized as a surgical candidate. Will continue to follow along with primary service. Continued [facility] stay due to: multiple IV medications needed, home environment unsafe for pt, other (acute care continues in ICU) Discharge planning: uncertain
[2017-04-02] MEDS: INSULIN GLARGINE SOLOSTAR 100 UNITS/ML 3 ML PEN SC SCH ×2 (08:52→21:38)
[2017-04-02] MEDS: INSULIN HUMAN REGULAR SC SCH ×4 (08:58→21:41)
[2017-04-02] MEDS: HEPARIN SOD 5000 UNIT/0.5 ML CARP SQ SCH ×2 (08:59→21:38)
[2017-04-02] MEDS: ASPIRIN 81 MG CHEW PO SCH (09:01)
--- NOTE | 2017-04-02 09:45 | DIAGNOSTIC IMAGING REPORT ---
KUB CLINICAL HISTORY: distal right ureteral stone COMPARISON STUDY: 05/21/2013, CT scan dated 03/23/2017 FINDINGS: There is no pathologic bowel dilatation. There is bilateral nephrolithiasis. The largest calculus is located on the right measuring 7 mm. There is a 7 mm right pelvic basin calcification, consistent with a distal right ureteral calculus. IMPRESSION: 1. Bilateral nephrolithiasis 2. 7 mm distal right ureteral calculus 3. No evidence of pathologic bowel dilatation Electronically signed by: Mohan Frank M.D. 04/02/2017 9:43 AM Dictated Date/Time: 04/02/2017 9:41 AM
[2017-04-02] MEDS ORDERED: METOPROLOL SUCC 25MG EXT REL TAB PO ONE (10:30)
--- NOTE | 2017-04-02 10:50 | Pulmonology Progress Note ---
Pulmonary Progress Note Date of Service Apr 02, 2017. Attending Dr. Cabral Subjective Patient seen and examined. He states that he is feeling better today. He coughed up some thick yellowish-brownish sputum overnight. He denies any chest pain. He does complain of mild generalized abdominal pain. He did not use BIPAP overnight. Objective VS: reviewed. Tm 36.9, BP 114/71-141/67, P 63-73, RR 20-24, SaO2 96-100% on 2L NC Gen: AAOx3, NAD, mildly tachypneic with speaking, no use of accessory muscles or respiration CVS: S1, S2, RRR Lungs: diminished breath sound throughout both lung layne Abd: soft/NT/ND/BS+ Ext: no edema bilateral lower extremity, no clubbing, no cyanosis. Ecchyomosis of bilateral upper extremity. Lab data reviewed. ABG 04/02/2017--7.40/69/89/42/96.3% CO2 43 BUN 39, Cr 1.41 Other studies. Microbiology o Expectorated sputum 03/21/2017: Treva albicans o Urine 03/23/2017: Treva albicans TTE from 03/19/2017 o Left ventricular systolic function is normal. o Ejection Fraction = 55-60%. o The right ventricular cavity size is normal (basal dimension <4.2 cm in right ventricular apical 4-chamber view). o The right ventricular systolic function is qualitatively normal. o There is mild mitral regurgitation. o There is mild tricuspid regurgitation. o The estimated systolic PAP is 55mmHg. o Dilated IVC with normal inspiratory variation suggesting RA pressure of 8mmHg. Video swallow 03/20/2017 o Penetration of thin liquids. No evidence of aspiration. o Disordered esophageal motility Pulmonary function studies 07/21/2015 FEV1 0.57/18% FVC 1.49/37% Bronchodilator significant reversibility based off FVC standards RV/TLC > 63 RV 3.73/163% DLCO not performed Assessment & Plan COPD, very severe Acute on chronic hypercapnia--improved Acute on chronic renal insufficiency Nephrolithiasis Mr. De La Cruz appears to be improving from a respiratory standpoint. He still remains mildly tachypneic. Despite hypercapnia, he is adequately compensated. Continue with supplemental oxygen to maintain SaO2 between 88-92%. Recommend BIPAP at night as tolerated. Continue with Solumedrol 40 mg q12h. Likely switch over to prednisone 60 mg tomorrow. Continue with slow taper. Continue with Xopenx/Ipratropium neb q6h. Albumin is 2.7 today, he may benefit from albumin replacements. Will hold off on acetazolamide at this time. Ureteral calculus--will leave management to primary team. Encourage PT/OT. Continue with DVT ppx. Data Medications: Current Inpatient Medications Medications (Trade) Dose Ordered Sig/Rosemary Route Start Time Stop Time Status Last Admin Dose Admin Acetaminophen (Tylenol Tab) 650 mg Q4H PRN PO 03/18/17 20:30 04/17/17 20:29 03/26/17 08:50 650 MG Miscellaneous Information (Order Awaiting Action) 1 ea QS N/A 03/19/17 00:00 04/18/17 00:00 Enteral Nutritional Formula (Boost) 1 can BIDM PO 03/22/17 17:00 04/21/17 16:59 Future Hold 03/24/17 16:15 1 CAN Heparin Sodium (Porcine) (Heparin Sq 5000 Unit/0.5ml) 5,000 unit Q12 SQ 03/26/17 21:00 04/25/17 20:59 04/02/17 08:59 5,000 UNIT Aspirin (Aspirin Chew) 81 mg DAILY PO 03/28/17 09:00 04/27/17 08:59 04/02/17 09:01 81 MG Miscellaneous Information (Consult Glycemic Management Pharmacy) 1 ea UD PRN N/A 03/29/17 14:15 04/28/17 14:14 Lactulose (Chronulac Syrup) 30 gm Q6 PRN PO 03/30/17 08:30 04/29/17 08:29 Potassium Chloride (Teresa Ciel Elix) 40 meq TID PO 03/30/17 09:00 04/29/17 08:59 04/02/17 07:53 40 MEQ Diltiazem HCl 125 mg/Dextrose 125 ml @ 0 mls/hr Q0M PRN IV 03/30/17 19:15 04/29/17 19:14 03/31/17 16:02 10 MLS/HR Insulin Human Regular (novoLIN-R) SLIDING SCALE ACHS SC 03/31/17 11:00 04/30/17 10:59 04/02/17 08:58 10 UNITS Insulin Glargine (Lantus Solostar Pen) BID SC 03/31/17 21:00 04/30/17 20:59 04/01/17 21:45 11 UNITS Ipratropium [place] (Atrovent 0.02% 0.5MG/2.5ML Neb) 0.5 mg Q6R INH 04/01/17 09:00 05/01/17 08:59 04/02/17 07:01 0.5 MG Levalbuterol (Xopenex 1.25MG/ 0.5ML Neb) 1.25 mg Q6R INH 04/01/17 09:00 05/01/17 08:59 04/02/17 07:01 1.25 MG Ipratropium [place] (Atrovent 0.02% 0.5MG/2.5ML Neb) 0.5 mg Q4H PRN INH 04/01/17 07:30 05/01/17 07:29 Levalbuterol (Xopenex 1.25MG/ 0.5ML Neb) 1.25 mg Q4H PRN INH 04/01/17 07:30 05/01/17 07:29 Methylprednisolone Sodium Succinate 40 mg/Syringe 0.64 ml @ 1.5 mls/min BID IV 04/01/17 21:00 04/25/17 09:59 04/02/17 07:53 1.5 MLS/MIN Alprazolam (Xanax Tab) 1 mg Q8H PRN PO 04/01/17 19:00 04/27/17 18:59 Metoprolol Succinate (Toprol Xl Tab) 25 mg QAM PO 04/03/17 09:00 05/03/17 08:59 Metoprolol Succinate (Toprol Xl Tab) 25 mg 1030 ONCE PO 04/02/17 10:30 04/02/17 10:31 Vital Signs: Date Time Temp Pulse Resp B/P (MAP) Pulse Ox O2 Delivery O2 Flow Rate FiO2 04/02/17 08:24 36.9 72 24 122/61 (81) 100 Nasal Cannula 2.0 04/02/17 08:01 Nasal Cannula 2.0 04/02/17 07:01 69 20 98 Nasal Cannula 2.0 04/02/17 04:00 96 Nasal Cannula 2.0 04/02/17 04:00 36.9 73 22 114/71 (85) 96 Nasal Cannula 2.0 04/02/17 01:37 63 20 99 Nasal Cannula 2.0 04/02/17 00:10 36.8 70 24 131/67 (88) 97 04/01/17 23:44 98 Nasal Cannula 2.0 04/01/17 19:45 98 Nasal Cannula 2.0 04/01/17 19:23 91 20 98 Nasal Cannula 2.0 04/01/17 19:06 36.4 95 21 146/69 (94) 98 Nasal Cannula 2.0 04/01/17 16:00 Nasal Cannula 2.0 04/01/17 15:15 36.8 91 30 137/64 (88) 98 Nasal Cannula 2.0 04/01/17 14:07 78 20 95 Nasal Cannula 2.0 04/01/17 12:00 Nasal Cannula 2.0 04/01/17 11:55 36.5 86 18 134/73 (93) 96 Nasal Cannula Laboratory Results: Last 24 Hours Test 04/01/17 11:25 04/01/17 15:58 04/01/17 20:15 04/02/17 05:22 Bedside Glucose 198 mg/dl 118 mg/dl 153 mg/dl Sodium Level 141 mmol/L Potassium Level 4.5 mmol/L Chloride Level 95 mmol/L Carbon Dioxide Level 43 mmol/L Anion Gap 3.0 mmol/L Blood Urea Nitrogen 39 mg/dl Creatinine 1.41 mg/dl Est Creatinine Clear Calc Drug Dose 38.9 ml/min Estimated GFR () 56.9 Estimated GFR (Non- 49.1 BUN/Creatinine Ratio 27.7 Random Glucose 114 mg/dl Calcium Level 8.1 mg/dl Magnesium Level 2.0 mg/dl Albumin 2.7 gm/dl Prealbumin 22.4 mg/dl Test 04/02/17 06:36 Bedside Glucose 116 mg/dl
--- NOTE | 2017-04-02 10:57 | Palliative Care Progress Note ---
Palliative Care Progress Note Date of Service Apr 02, 2017. Subjective Pt evaluation today including: conversation w/ patient, physical exam, chart review Pain: none PO Intake: tolerating diet -Patient was extubated on Friday 03/30. He was initially placed on bipap and is now on 3LNC doing well. -Patient more oriented during my assessment. Knew name, date, why he was in hospital, but of course could not recall the events that took place while he was intubated. -We discussed goals of care. See below in plan. -Had some issues with heart rhythm over weekend. Was in afib and had some runs of Vtach- was placed on cardizem gtt. Review of Systems Constitutional: + weakness (improving) ENT: No trouble swallowing Respiratory: + cough, + sputum (some blood in sputum today), + shortness of breath, + dyspnea on exertion, No wheezing Cardiac: No chest pain, No edema Abdomen: + diarrhea, No pain, No nausea, No vomiting Musculoskeletal: No problem reported Male : No problem reported (has Cabral catheter) Neurologic: + problem reported (forgetfulness due to acute event) Psychiatric: No depression symptoms, No anxiety Skin: No problem reported Objective Vital Signs Date Time Temp Pulse Resp B/P (MAP) Pulse Ox O2 Delivery O2 Flow Rate FiO2 04/02/17 08:24 36.9 72 24 122/61 (81) 100 Nasal Cannula 2.0 04/02/17 08:01 Nasal Cannula 2.0 04/02/17 07:01 69 20 98 Nasal Cannula 2.0 04/02/17 04:00 96 Nasal Cannula 2.0 04/02/17 04:00 36.9 73 22 114/71 (85) 96 Nasal Cannula 2.0 04/02/17 01:37 63 20 99 Nasal Cannula 2.0 04/02/17 00:10 36.8 70 24 131/67 (88) 97 04/01/17 23:44 98 Nasal Cannula 2.0 04/01/17 19:45 98 Nasal Cannula 2.0 04/01/17 19:23 91 20 98 Nasal Cannula 2.0 04/01/17 19:06 36.4 95 21 146/69 (94) 98 Nasal Cannula 2.0 04/01/17 16:00 Nasal Cannula 2.0 04/01/17 15:15 36.8 91 30 137/64 (88) 98 Nasal Cannula 2.0 04/01/17 14:07 78 20 95 Nasal Cannula 2.0 04/01/17 12:00 Nasal Cannula 2.0 04/01/17 11:55 36.5 86 18 134/73 (93) 96 Nasal Cannula Physical Exam General Appearance: no apparent distress, + thin ENT: hearing grossly normal Neck: supple, no JVD Respiratory/Chest: no respiratory distress, no accessory muscle use, + decreased breath sounds (air exchange extremely diminished throughout), + pertinent finding (moist cough noted) Cardiovascular: regular rate, rhythm, no edema, + normal peripheral pulses Abdomen: normal bowel sounds, non tender, soft Neurologic/Psychiatric: alert, normal mood/affect, oriented x 3 (with some forgetfulness) Skin: normal color Assessment and Plan Problem list: Altered mental status Respiratory failure, acute on chronic Elevated CO2- refusing to wear bipap at night COPD, severe Pneumonia, RLL NSTEMI Possible seizure activity- neurology following. no new activity CHASITY on CKD- improved creatinine from admission Goals of care (Z51.5) Palliative care recs: -Patient is extubated, doing well at this time on 3LNC. -Orientation is much improved, but patient does still have some forgetfulness. -We discussed patient's wishes if he should reenter respiratory failure- patient wants to be FULL CODE at this time with a trial on the mechanical ventilator. He stated he WOULD NOT want to live long-term on machines. However, when we asked about trach, patient was undecided but was not fond of the idea that he could potentially live on machines in a long-term care facility for the remainder of his life. -I urged patient to think about these decisions and suggested that we do a POLST or living will while he is here in hospital so these decisions are not left up to his son again. He agreed. -Patient will surely need rehab after hospitalization as he was living home independently prior to this event. Unsure of long-term needs. I will continue to follow patient during hospitalization. Palliative Performance Scale: 50 % Continued [facility] stay due to: multiple IV medications needed, home environment unsafe for pt, other (acute care continues) Discharge planning: uncertain
--- NOTE | 2017-04-02 12:19 | Cardiology Follow-Up ---
Subjective Subjective Date of Service: Apr 02, 2017. Pt evaluation today including: conversation w/ patient, physical exam, chart review, lab review, review of studies, review of inpatient medication list Additional Details: Pt seen and examined, oob in chair, states that he's feeling rather well today. Breathing has improved. Pleuritic abdominal discomfort all but resolved as well. No significant edema. Denies palpitations, lightheadedness or dizziness. Tele reviewed: sinus/sinus tach on monitor without arrhythmia or significant ectopy. Problem List Medical Problems: (1) COPD exacerbation Status: Acute (2) Hypoxia Status: Acute (3) Pancytopenia Status: Acute (4) Pneumonia Status: Acute Review of Systems Constitutional: + weakness (improving) ENT: No trouble swallowing Respiratory: + cough, + sputum (some blood in sputum today), + shortness of breath, + dyspnea on exertion, No wheezing Cardiac: No chest pain, No edema Abdomen: + diarrhea, No pain, No nausea, No vomiting Musculoskeletal: No problem reported Male : No problem reported (has Cabral catheter) Neurologic: + problem reported (forgetfulness due to acute event) Psychiatric: No depression symptoms, No anxiety Skin: No problem reported Objective Vital Signs Last Vital Signs Documentation Date Time Temp Pulse Resp B/P (MAP) Pulse Ox O2 Delivery O2 Flow Rate FiO2 04/02/17 08:24 36.9 72 24 122/61 (81) 100 Nasal Cannula 2.0 04/01/17 04:30 30 Physical Exam: General Appearance: WD/WN, no apparent distress, + thin Eyes: bilateral eyes normal inspection, bilateral eyes PERRL, bilateral eyes EOMI ENT: normal ENT inspection, hearing grossly normal, pharynx normal Neck: supple, no adenopathy, thyroid normal, no JVD, no carotid bruits, trachea midline Respiratory/Chest: chest non-tender, no respiratory distress, no accessory muscle use, + rhonchi Cardiovascular: regular rate, rhythm (but distant) Abdomen: normal bowel sounds, non tender, soft Extremities: normal inspection, no pedal edema, no calf tenderness Neurologic/Psychiatric: 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 acute reduction of LV systolic function likely NICM secondary to metabolic demands given clinical context improving will start meds to aid in worship of LV function will start with evidence based beta krunal, metoprolol succinate 25mg daily will follow bp to see if will allow for nay/arb diuretics held secondary to metabolic alkalosis, agree with if need for further diuresis may need to discuss with our nephrology colleagues cont to monitor on tele Continued [facility] stay due to: multiple IV medications needed, home environment unsafe for pt, other (acute care continues) Discharge planning: uncertain
--- NOTE | 2017-04-02 16:41 | Progress Note ---
Medicine Progress Note Date & Time of Visit: Apr 02, 2017 at 12:13. Subjective 71 yo M admitted with COPD exacerbation from PCP office, suffered a hypoxic event after noncompliance with BIPAP on 03/25 and developed ?seizure activity. He was treated with Ativan and subsequently intubated in the ICU. He remained vented from 03/25- and was successfully extubated. He was transferred to [facility] 03/31 and is doing well on nasal canula w BIPAP at night. He denies any SOB, chest pain, or any other pain anywhere. He denies any issues with swallowing and denies that food gets stuck in his esophagus on the modified diet currently. He reports profound weakness that is slowly improving. He is tolerating PO. Objective Last 8 Hrs Date Time Temp Pulse Resp B/P (MAP) Pulse Ox O2 Delivery O2 Flow Rate FiO2 04/02/17 12:06 Nasal Cannula 2.0 04/02/17 12:02 107 36 144/71 (95) 96 Nasal Cannula 2.0 04/02/17 08:24 36.9 72 24 122/61 (81) 100 Nasal Cannula 2.0 04/02/17 08:01 Nasal Cannula 2.0 04/02/17 07:01 69 20 98 Nasal Cannula 2.0 Physical Exam: GEN: thin, elderly, frail, alert and appropriate. Appears generally weak. HEENT: NC/AT, pupils are equal and round bilaterally, normal sclerae, MMM, nasal canula in place and no respiratory distress. CARDIO: reg rate, S1/2 heard without m/g/r LUNGS: very diminished breath sounds bilaterally, no crackles, rales or wheezes were heard. ABD: soft, non-distended, no guarding. +BS EXTREMITY: RP and DP palpable 2+ bilat, no LE swelling or edema, extremities are warm and well-perfused SKIN: warm and dry Laboratory Results: 04/01/17 05:30 04/02/17 05:22 Test 03/18/17 00:00 03/18/17 17:25 03/18/17 20:14 03/19/17 00:53 Influenza Type A (RT-PCR) Neg for Influ A (NEG) Influenza Type A Antigen Neg for Influ A (NEG) Influenza Type B Antigen Neg for Influ B (NEG) Influenza Type B (RT-PCR) Neg for Influ B (NEG) Giant Platelets 1+ Polychromasia 1+ Peripheral Blood Smear Path Consult Lactic Acid Level 0.6 mmol/L (0.4-2.0) Anisocytosis PRESENT Absolute Reticulocyte Count 0.06 10^6/uL (0.02-0.10) Percent Reticulocyte Count 2.6 % (0.5-2.0) Ferritin 178.5 ng/ml (8.0-388.0) Vitamin B12 Level 559 pg/mL (211-911) Folate 10.95 ng/mL (>5.38) Test 03/20/17 05:43 03/22/17 05:14 03/23/17 07:22 03/23/17 10:47 Basophilic Stippling OCCASIONAL Iron Level 36 mcg/dl (35-175) Total Iron Binding Capacity 182 mcg/dl (250-450) Transferrin 123 mg/dl (200-360) Transferrin % Saturation 21 % (20-50) Platelet Estimate DECREASED Hypochromasia PRESENT Prostate Specific Antigen 1.680 ng/ml (0.000-4.000) Urine Color YELLOW Urine Appearance CLEAR (CLEAR) Urine pH 7.5 (4.5-7.5) Urine Specific Epsom 1.018 (1.000-1.030) Urine Protein NEG (NEG) Urine Glucose (UA) NEG (NEG) Urine Ketones NEG (NEG) Urine Occult Blood NEG (NEG) Urine Nitrite NEG (NEG) Urine Bilirubin NEG (NEG) Urine Urobilinogen NEG (NEG) Urine Leukocyte Esterase TRACE (NEG) Urine WBC (Auto) 1-5 /hpf (0-5) Urine RBC (Auto) 0-4 /hpf (0-4) Urine Hyaline Casts (Auto) 1-5 /lpf (0-5) Urine Epithelial Cells (Auto) >30 /lpf (0-5) Urine Bacteria (Auto) NEG (NEG) Urine Mucus PRESENT (NONE PRSENT) Urine Yeast (Auto) BUDDING (NONE PRSENT) Test 03/24/17 05:20 03/24/17 10:25 03/25/17 04:53 03/25/17 06:49 Red Blood Cell Morphology Unremarkable Stool Occult Blood NEGATIVE (NEGATIVE) Direct Bilirubin 0.1 mg/dl (0-0.2) Total Bilirubin 0.6 mg/dl (0.2-1) Aspartate Amino Transf (AST/SGOT) 14 U/L (15-37) Alanine Aminotransferase (ALT/SGPT) 16 U/L (12-78) Alkaline Phosphatase 51 U/L (45-117) Total Protein 5.4 gm/dl (6.4-8.2) Globulin 2.6 gm/dl (2.5-4.0) Albumin/Globulin Ratio 1.1 (0.9-2) Test 03/25/17 16:07 03/28/17 05:11 03/28/17 05:16 03/30/17 12:17 Prothrombin Time 10.3 SECONDS (9.0-12.0) Prothromb Time International Ratio 1.0 (0.9-1.1) Immature Granulocyte % (Auto) 0.2 % White Blood Count 4.14 K/uL (4.8-10.8) Red Blood Count 2.99 M/uL (4.7-6.1) Hemoglobin 9.3 g/dL (14.0-18.0) Hematocrit 28.9 % (42-52) Mean Corpuscular Volume 96.7 fL (80-100) Mean Corpuscular Hemoglobin 31.1 pg (25-34) Mean Corpuscular Hemoglobin Concent 32.2 g/dl (32-36) Platelet Count 124 K/uL (130-400) Mean Platelet Volume 12.6 fL (7.4-10.4) Neutrophils (%) (Auto) 88.9 % Lymphocytes (%) (Auto) 5.3 % Monocytes (%) (Auto) 5.6 % Eosinophils (%) (Auto) 0.0 % Basophils (%) (Auto) 0.0 % Neutrophils # (Auto) 3.68 K/uL (1.4-6.5) Lymphocytes # (Auto) 0.22 K/uL (1.2-3.4) Monocytes # (Auto) 0.23 K/uL (0.11-0.59) Eosinophils # (Auto) 0.00 K/uL (0-0.5) Basophils # (Auto) 0.00 K/uL (0-0.2) Immature Granulocyte # (Auto) 0.01 K/uL (0.00-0.02) Nucleated RBC Absolute Count (auto) 0.02 K/uL (0-0) Nucleated Red Blood Cells % 0.5 % Large Platelets 1+ Tear Drop Cells 1+ Blood Gas Sample Site L Radial Bedside Blood Gas pH (LAB) 7.40 (7.35-7.45) Bedside Blood Gas pCO2 (LAB) 47 mmHg (35-46) Bedside Blood Gas pO2 (LAB) 74 mmHg (80-95) Bedside Blood Gas HCO3 (LAB) 29 meq/L (19-24) Bedside Blood Gas Total CO2 30 mEq/l (24-31) Bedside Blood Gas Base Excess (LAB) 4.0 meq/L (-9-1.8) Bedside Blood Gas O2 Saturation 95.0 % (90-95) Oxygen Delivery Device Ventilator Bedside Oxygen Rate (breaths/min) 12 Blood Gas Minute Ventilation 7.1 Bedside FiO2 30 % Blood Gas Tidal Volume 550 Blood Gas PEEP 5 Troponin I 0.242 ng/ml (0-0.045) Test 03/31/17 05:15 04/01/17 05:30 04/01/17 08:47 04/02/17 05:22 Activated Partial Thromboplast Time 26.2 SECONDS (21.0-31.0) Partial Thromboplastin Ratio 1.0 Estimated Average Glucose 91 mg/dl Hemoglobin A1c 4.8 % (4.5-5.6) Red Blood Count 2.98 M/uL (4.7-6.1) Mean Corpuscular Volume 101.3 fL (80-100) Mean Corpuscular Hemoglobin 31.2 pg (25-34) Mean Corpuscular Hemoglobin Concent 30.8 g/dl (32-36) RDW Standard Deviation 54.7 fL (36.4-46.3) RDW Coefficient of Variation 14.9 % (11.5-14.5) Mean Platelet Volume 11.7 fL (7.4-10.4) Phosphorus Level 2.2 mg/dl (2.5-4.9) Arterial Blood pH 7.40 (7.35-7.45) Arterial Blood Partial Pressure CO2 69 mmHg (35-46) Arterial Blood Partial Pressure O2 89 mm/Hg (80-95) Arterial Blood HCO3 42 mmol/L (19-24) Arterial Blood Oxygen Saturation 96.3 % (90-95) Arterial Blood Base Excess 14.8 mEq/L (-9-1.8) Arterial Blood Gas Delivery 4L Howard Test POS (POS) Anion Gap 3.0 mmol/L (3-11) Est Creatinine Clear Calc Drug Dose 38.9 ml/min Estimated GFR () 56.9 Estimated GFR (Non- 49.1 BUN/Creatinine Ratio 27.7 (10-20) Calcium Level 8.1 mg/dl (8.5-10.1) Magnesium Level 2.0 mg/dl (1.8-2.4) Albumin 2.7 gm/dl (3.4-5.0) Prealbumin 22.4 mg/dl (20-40) Test 04/02/17 16:16 Date/Time Source Procedure Growth Status 03/18/17 20:10 Blood Blood Culture - Final NO GROWTH Complete 03/25/17 09:20 Nasal MRSA DNA Surveillance Screen - Final Specimen Negative for MRSA by DNA Probe Complete 03/21/17 13:30 Sputum Expectorated Sputum Gram Stain - Final Complete 03/21/17 13:30 Sputum Culture - Final Treva Albicans Complete 04/02/17 08:45 Urine,Catheterized Urine Culture Pending Received Last 24 Hours Test 04/01/17 15:58 04/01/17 20:15 04/02/17 05:22 04/02/17 06:36 Bedside Glucose 118 mg/dl 153 mg/dl 116 mg/dl Sodium Level 141 mmol/L Potassium Level 4.5 mmol/L Chloride Level 95 mmol/L Carbon Dioxide Level 43 mmol/L Anion Gap 3.0 mmol/L Blood Urea Nitrogen 39 mg/dl Creatinine 1.41 mg/dl Est Creatinine Clear Calc Drug Dose 38.9 ml/min Estimated GFR () 56.9 Estimated GFR (Non- 49.1 BUN/Creatinine Ratio 27.7 Random Glucose 114 mg/dl Calcium Level 8.1 mg/dl Magnesium Level 2.0 mg/dl Albumin 2.7 gm/dl Prealbumin 22.4 mg/dl Test 04/02/17 11:26 Bedside Glucose 168 mg/dl Date/Time Source Procedure Growth Status 04/02/17 08:45 Urine,Catheterized Urine Culture Pending Received Assessment & Plan 71 yo M admitted with COPD exacerbation from PCP office, suffered a hypoxic event after noncompliance with BIPAP on 03/25 and developed ?seizure activity. He was treated with Ativan and subsequently intubated in the ICU. He remained vented from 03/25- and was successfully extubated. He was transferred to [facility] 03/31 and is doing well on nasal canula w BIPAP at night. He denies any SOB, chest pain, or any other pain anywhere. He denies any issues with swallowing and denies that food gets stuck in his esophagus on the modified diet currently. He reports profound weakness that is slowly improving. He is tolerating PO. 1. Acute respiratory failure, hypoxic and hypercapnic.-improved. Steroid taper per pulm, starting prednisone tomorrow. Cont nightly BIPAP and PRN during the day as needed. Cont scheduled bronchodilator therapy. 2. COPD-dependent on home oxygen. Continues to actively smoke per family. He is not a candidate for LVRS 2/2 his low FEV1 of <20%. 3. Acute systolic heart failure seen after hypoxic event with elevated troponins. Was treated medically with heparin drip. Denies any chest pain today. Latest TTE shows an improved EF. Cards added Toprol XL. Lasix was stopped 04/01 and held until he becomes more euvolemic as the diuresis was 40 IV q8hrs for several days and he has a metabolic alkalosis related to this. He continues on ASA. 4. RLL pneumonia-completed a course of abx (Azithro and Ceftriaxone) The patient will need a 4-6 weeks follow-up xray as outpatient. 5. PAF-not anticoagulated, continues on diltiazem 6. Dysphagia-Video swallow study was completed earlier during the hospitalization revealing no evidence of aspiration. Recommendations were made by [employer] including slippery diet, GERD precautions and aspiration precautions. A Barium swallow study was also recommended to better assess esophageal dysfunction. We may pursue this when he is able to stand upright for the required length of time for the test. Currently passed bedside swallow study post-extubation so will continue on current diet. He is doing well on this. Too weak to stand for further studies at this time. 7. Ambulatory dysfunction 2/2 deconditioning from prolonged hospitalization and ICU stay. cont PT/OT efforts. He will likely need to transition through rehab on his way home. Also, pt lives at home alone. Will ensure Case Management looks into this further to ensure proper resources are available. 8. CHASITY-creatinine went from 1.4 to 1.6 likely related to aggressive diuresis and is now down to 1.4 after stopping diuretics yesterday. Cont to monitor PRP. Pt does have ureteral stone that is being watched closely by Urology. If CHASITY doesn't resolve, this may be an indication for surgical removal sooner rather than later. 9. Ureteral calculus-7mm obstructing calculus present in distal right ureter noted on CT 03/23 and seen again on repeat KUB today. Urology is following and considered stent, however, he has clinically improved and is not reporting any pain. Awaiting resolution of CHASITY and Uro would like pt to be optimized from a cardiopulmonary standpoint more before undergoing any procedure ideally. 10. Anemia-likely multifactorial related to dilution, acute blood loss 2/2 daily phlebotomy and anemia of chronic disease. No indication for transfusion at this time. 11. Tobacco use-encouraged to quit smoking. This is imperative at this point. 12. Thrombocytopenia. DVT proph-heparin Full Code Dispo-to telemetry. Pamela Moreno DO [facility] Hospitalist Continued [facility] stay due to: multiple IV medications needed, home environment unsafe for pt, other (acute care continues) Discharge planning: uncertain Consultants: Dr. Lares-ICU Dr. Jaramillo-Urology Neuro-Dr. Denzel Fritz-[place] Pulm-Cabral Procedures: . Current Inpatient Medications: Current Inpatient Medications Medications (Trade) Dose Ordered Sig/Rosemary Route Start Time Stop Time Status Last Admin Dose Admin Acetaminophen (Tylenol Tab) 650 mg Q4H PRN PO 03/18/17 20:30 04/17/17 20:29 03/26/17 08:50 650 MG Miscellaneous Information (Order Awaiting Action) 1 ea QS N/A 03/19/17 00:00 04/18/17 00:00 Enteral Nutritional Formula (Boost) 1 can BIDM PO 03/22/17 17:00 04/21/17 16:59 Future Hold 03/24/17 16:15 1 CAN Heparin Sodium (Porcine) (Heparin Sq 5000 Unit/0.5ml) 5,000 unit Q12 SQ 03/26/17 21:00 04/25/17 20:59 04/02/17 08:59 5,000 UNIT Aspirin (Aspirin Chew) 81 mg DAILY PO 03/28/17 09:00 04/27/17 08:59 04/02/17 09:01 81 MG Miscellaneous Information (Consult Glycemic Management Pharmacy) 1 ea UD PRN N/A 03/29/17 14:15 04/28/17 14:14 Lactulose (Chronulac Syrup) 30 gm Q6 PRN PO 03/30/17 08:30 04/29/17 08:29 Potassium Chloride (Teresa Ciel Elix) 40 meq TID PO 03/30/17 09:00 04/29/17 08:59 04/02/17 07:53 40 MEQ Diltiazem HCl 125 mg/Dextrose 125 ml @ 0 mls/hr Q0M PRN IV 03/30/17 19:15 04/29/17 19:14 03/31/17 16:02 10 MLS/HR Insulin Human Regular (novoLIN-R) SLIDING SCALE ACHS SC 03/31/17 11:00 04/30/17 10:59 04/02/17 08:58 10 UNITS Insulin Glargine (Lantus Solostar Pen) BID SC 03/31/17 21:00 04/30/17 20:59 04/01/17 21:45 11 UNITS Ipratropium [place] (Atrovent 0.02% 0.5MG/2.5ML Neb) 0.5 mg Q6R INH 04/01/17 09:00 05/01/17 08:59 04/02/17 07:01 0.5 MG Levalbuterol (Xopenex 1.25MG/ 0.5ML Neb) 1.25 mg Q6R INH 04/01/17 09:00 05/01/17 08:59 04/02/17 07:01 1.25 MG Ipratropium [place] (Atrovent 0.02% 0.5MG/2.5ML Neb) 0.5 mg Q4H PRN INH 04/01/17 07:30 05/01/17 07:29 Levalbuterol (Xopenex 1.25MG/ 0.5ML Neb) 1.25 mg Q4H PRN INH 04/01/17 07:30 05/01/17 07:29 Methylprednisolone Sodium Succinate 40 mg/Syringe 0.64 ml @ 1.5 mls/min BID IV 04/01/17 21:00 04/25/17 09:59 04/02/17 07:53 1.5 MLS/MIN Alprazolam (Xanax Tab) 1 mg Q8H PRN PO 04/01/17 19:00 04/27/17 18:59 Metoprolol Succinate (Toprol Xl Tab) 25 mg QAM PO 04/03/17 09:00 05/03/17 08:59
[2017-04-02] MEDS ORDERED: D5W AND NSS 1,000 ML IV SCH (17:00)
[2017-04-03] VITALS (13 sets, daily range): BP systolic 128–159; BP diastolic 71–92; PULSE 70–120; TEMP 36.5–37; O2SAT 88–100
[2017-04-03] MEDS: IPRATROPIUM BROMIDE NEB SOLN 0.02% 2.5 ML VIAL INH SCH ×4 (02:14→19:00)
[2017-04-03] MEDS: LEVALBUTEROL 1.25MG/0.5ML NEB INH SCH ×4 (02:14→19:55)
[2017-04-03 05:59] LABS: CALCIUM 8.1 mg/dl (8.5-10.1); CREATININE 1.3 mg/dl (0.60-1.40); POTASSIUM 4.8 mmol/L (3.5-5.1)
[2017-04-03] MEDS: METOPROLOL SUCC 25MG EXT REL TAB PO SCH (08:26)
[2017-04-03] MEDS: ASPIRIN 81 MG CHEW PO SCH (08:27)
[2017-04-03] MEDS: INSULIN HUMAN REGULAR SC SCH ×4 (08:29→20:45)
[2017-04-03] MEDS: HEPARIN SOD 5000 UNIT/0.5 ML CARP SQ SCH ×2 (08:30→20:46)
[2017-04-03] MEDS: POTASSIUM CHLORIDE 20 MEQ/15 ML UDC PO SCH ×3 (09:28→20:43)
--- NOTE | 2017-04-03 11:04 | Pulmonology Progress Note ---
Pulmonary Progress Note Date of Service Apr 03, 2017. Attending Dr. Cabral Subjective Patient appears much improved this morning. He states that he is "150%" this morning. He continues to have some SOB on and off. Labs reviewed: WBC 10.46 Hgb 9.3 Creatinine 1.30 BUN 34 Calcium 8.1 Repeat urine culture pending. KUB 04/02: B/L Nephrolithiasis 7 mm distal right ureteral calculus No evidence of pathologic bowel dilatation Objective VS reviewed: Afebrile HR 95 RR 20 BP 144/72 SaO2 97% on 2 L via nasal cannula KUB CLINICAL HISTORY: distal right ureteral stone COMPARISON STUDY: 05/21/2013, CT scan dated 03/23/2017 FINDINGS: There is no pathologic bowel dilatation. There is bilateral nephrolithiasis. The largest calculus is located on the right measuring 7 mm. There is a 7 mm right pelvic basin calcification, consistent with a distal right ureteral calculus. IMPRESSION: 1. Bilateral nephrolithiasis 2. 7 mm distal right ureteral calculus 3. No evidence of pathologic bowel dilatation General: Patient is awake, alert, cooperative, and in no acute distress. Well developed. Well-nourished. Head: Normocephalic, Atraumatic. ENT: PERRLA, No discharge, EOMI, Sclera normal Neck: Normal ROM. Trachea midline. No stridor Respiratory: Mildly decreased breath sounds. Very slight wheeze RUL. No respiratory distress. No accessory muscle use. Cardiovascular: Tachycardia on monitor in room- 110. Abdomen: Nontender to palpation. Normal bowel sounds hear throughout. No guarding. Abdomen is soft and nontender Back: Normal inspection. Extremities: No edema, cyanosis. Normal ROM. SCD's in place Neuro: Alert, Oriented x 3. CN II-XII grossly intact. Sensation and motor function grossly intact. Psych: Mood and affect are normal. Assessment & Plan COPD- Very Severe Acute on chronic hypercapnia--improved Acute on chronic renal insufficiency Nephrolithiasis Patient has continued improvement today. He continues to have mild dyspnea but is saturating well on 2 L via nasal cannula. Continue O2 supplementation to maintain SaO2 between 88-92% ideally. Continue BiPAP at night as tolerated- patient did not wear last night. Transition to PO Prednisone today starting at 60 mg daily. Will need a slow tapering course. Continue with Xopenx/Ipratropium neb q6h. Encourage PT/OT. Continue with DVT ppx. Patient improved from respiratory standpoint. Pulm will sign off. Call with questions/changes in patient status. Thanks Data Medications: Current Inpatient Medications Medications (Trade) Dose Ordered Sig/Rosemary Route Start Time Stop Time Status Last Admin Dose Admin Acetaminophen (Tylenol Tab) 650 mg Q4H PRN PO 03/18/17 20:30 04/17/17 20:29 03/26/17 08:50 650 MG Miscellaneous Information (Order Awaiting Action) 1 ea QS N/A 03/19/17 00:00 04/18/17 00:00 Enteral Nutritional Formula (Boost) 1 can BIDM PO 03/22/17 17:00 04/21/17 16:59 Future Hold 03/24/17 16:15 1 CAN Heparin Sodium (Porcine) (Heparin Sq 5000 Unit/0.5ml) 5,000 unit Q12 SQ 03/26/17 21:00 04/25/17 20:59 04/03/17 08:30 5,000 UNIT Aspirin (Aspirin Chew) 81 mg DAILY PO 03/28/17 09:00 04/27/17 08:59 04/03/17 08:27 81 MG Miscellaneous Information (Consult Glycemic Management Pharmacy) 1 ea UD PRN N/A 03/29/17 14:15 04/28/17 14:14 Lactulose (Chronulac Syrup) 30 gm Q6 PRN PO 03/30/17 08:30 04/29/17 08:29 Potassium Chloride (Teresa Ciel Elix) 40 meq TID PO 03/30/17 09:00 04/29/17 08:59 04/03/17 09:28 40 MEQ Insulin Human Regular (novoLIN-R) SLIDING SCALE ACHS SC 03/31/17 11:00 04/30/17 10:59 04/03/17 08:29 2 UNITS Insulin Glargine (Lantus Solostar Pen) BID SC 03/31/17 21:00 04/30/17 20:59 Future Hold 04/02/17 21:38 11 UNITS Ipratropium [place] (Atrovent 0.02% 0.5MG/2.5ML Neb) 0.5 mg Q6R INH 04/01/17 09:00 05/01/17 08:59 04/03/17 07:40 0.5 MG Levalbuterol (Xopenex 1.25MG/ 0.5ML Neb) 1.25 mg Q6R INH 04/01/17 09:00 05/01/17 08:59 04/03/17 07:40 1.25 MG Ipratropium [place] (Atrovent 0.02% 0.5MG/2.5ML Neb) 0.5 mg Q4H PRN INH 04/01/17 07:30 05/01/17 07:29 Levalbuterol (Xopenex 1.25MG/ 0.5ML Neb) 1.25 mg Q4H PRN INH 04/01/17 07:30 05/01/17 07:29 Alprazolam (Xanax Tab) 1 mg Q8H PRN PO 04/01/17 19:00 04/27/17 18:59 Metoprolol Succinate (Toprol Xl Tab) 25 mg QAM PO 04/03/17 09:00 05/03/17 08:59 04/03/17 08:26 25 MG Prednisone (PredniSONE TAB) 60 mg DAILY PO 04/03/17 09:00 05/03/17 08:59 04/03/17 08:25 60 MG Dextrose/Sodium Chloride 1,000 ml @ 50 mls/hr Q20H IV 04/02/17 17:00 04/03/17 12:59 04/02/17 17:00 50 MLS/HR I & O: 24-Hour Column 04/04/17 07:59 Output Total 1000 ml Balance -1000 ml Vital Signs: Date Time Temp Pulse Resp B/P (MAP) Pulse Ox O2 Delivery O2 Flow Rate FiO2 04/03/17 10:42 36.6 95 20 144/72 (96) 97 Nasal Cannula 2.0 04/03/17 08:00 97 Nasal Cannula 2.0 30 04/03/17 07:40 79 16 97 Nasal Cannula 2.0 04/03/17 07:08 36.9 85 24 137/92 (107) 98 Nasal Cannula 2.0 04/03/17 04:20 Nasal Cannula 3.0 04/03/17 03:56 36.7 84 26 128/71 (90) 94 04/03/17 02:13 70 16 92 Nasal Cannula 2.0 04/03/17 00:24 36.9 82 24 142/78 (99) 95 04/03/17 00:01 Nasal Cannula 3.0 04/02/17 20:00 97 Nasal Cannula 2.5 30 04/02/17 19:50 105 24 97 Nasal Cannula 2.0 04/02/17 18:54 37.0 105 25 141/71 (94) 97 Nasal Cannula 2.0 04/02/17 16:16 Nasal Cannula 2.0 04/02/17 15:13 36.6 94 32 143/71 (95) 96 Nasal Cannula 2.0 04/02/17 14:12 98 24 98 Nasal Cannula 2.0 04/02/17 12:06 Nasal Cannula 2.0 04/02/17 12:02 107 36 144/71 (95) 96 Nasal Cannula 2.0 Laboratory Results: Last 24 Hours Test 04/02/17 11:26 04/02/17 16:16 04/02/17 18:12 04/02/17 20:31 Bedside Glucose 168 mg/dl 51 mg/dl 101 mg/dl 207 mg/dl Test 04/03/17 04:44 04/03/17 06:49 Sodium Level 137 mmol/L Potassium Level 4.8 mmol/L Chloride Level 97 mmol/L Carbon Dioxide Level 39 mmol/L Anion Gap 1.0 mmol/L Blood Urea Nitrogen 34 mg/dl Creatinine 1.30 mg/dl Est Creatinine Clear Calc Drug Dose 42.2 ml/min Estimated GFR () 62.7 Estimated GFR (Non- 54.1 BUN/Creatinine Ratio 26.2 Random Glucose 106 mg/dl Calcium Level 8.1 mg/dl Bedside Glucose 114 mg/dl
--- NOTE | 2017-04-03 12:33 | Pharmacy Progress Note ---
Pharmacy Glycemic Short Note 2 Date of Service Apr 03, 2017. OUTPATIENT ANTIDIABETIC REGIMEN: * N/A, no outpatient regimen, A1c is normal at 4.8% on 03/31/17 ASSESSMENT: * Mr. De La Cruz is currently on dextrose IVFs that were started around 1700 last evening for hypoglycemia * BSGs are improved but just increased to above goal with the lunch BSG today * His steroids have been reduced further to just once daily prednisone, which started today * TDD of insulin yesterday was 39 units * With PM Lantus dose still on board and patient still on the dextrose, will not plan for any more basal today * If BSGs should remain above goal, can most likely d/c dextrose IVFs * The once daily prednisone will wear off overnight so he will NOT need further basal insulin this evening * Consideration will be given to transitioning to once daily NPH tomorrow, to reflect the pharmacokinetics of once daily prednisone PLAN FOR INPATIENT GLYCEMIC CONTROL: * D/C Lantus * Continue Regular ACHS * Goal 110-140 * LOOSEN CF to 30 * LOOSEN CR to 10 * Would recommend discontinuing dextrose IVFs once BSG is sustained above goal * May consider transitioning to once daily NPH (~0.4 units/kg) tomorrow to coincide with once daily prednisone PLAN FOR DISCHARGE: * If patient to be discharged on a slow taper of prednisone, may need to consider once daily NPH or possibly a shorter-acting sulfonylurea, such as glipizide
--- NOTE | 2017-04-03 12:55 | Progress Note ---
Subjective Date of Service: Apr 03, 2017. Subjective Pt evaluation today including: conversation w/ patient, chart review, lab review Voiding: villa catheter in place (patent, draining clear, yellow urine) Pt c/o some suprapubic discomfort this morning, but otherwise feels well. Pt much more alert and oriented at my visit this morning. He reports baseline voiding difficulty. Noted to have baseline SOB. Cr has normalized at 1.3. Repeat UC&S preliminarily negative. KUB from yesterday reviewed. Stone visible in the distal right ureter. Problem List Medical Problems: (1) COPD exacerbation Status: Acute (2) Hypoxia Status: Acute (3) Pancytopenia Status: Acute (4) Pneumonia Status: Acute Review of Systems Constitutional: No fever, No chills Respiratory: + see HPI, + shortness of breath Cardiac: No chest pain Abdomen: + pain (suprapubic/bladder discomfort), No nausea, No vomiting Male : No hematuria Heme: No abnormal bleeding/bruising Objective Vital Signs Date Time Temp Pulse Resp B/P (MAP) Pulse Ox O2 Delivery O2 Flow Rate FiO2 04/03/17 10:42 36.6 95 20 144/72 (96) 97 Nasal Cannula 2.0 04/03/17 08:00 97 Nasal Cannula 2.0 30 04/03/17 07:40 79 16 97 Nasal Cannula 2.0 04/03/17 07:08 36.9 85 24 137/92 (107) 98 Nasal Cannula 2.0 04/03/17 04:20 Nasal Cannula 3.0 04/03/17 03:56 36.7 84 26 128/71 (90) 94 04/03/17 02:13 70 16 92 Nasal Cannula 2.0 04/03/17 00:24 36.9 82 24 142/78 (99) 95 04/03/17 00:01 Nasal Cannula 3.0 04/02/17 20:00 97 Nasal Cannula 2.5 30 04/02/17 19:50 105 24 97 Nasal Cannula 2.0 04/02/17 18:54 37.0 105 25 141/71 (94) 97 Nasal Cannula 2.0 04/02/17 16:16 Nasal Cannula 2.0 04/02/17 15:13 36.6 94 32 143/71 (95) 96 Nasal Cannula 2.0 04/02/17 14:12 98 24 98 Nasal Cannula 2.0 Physical Exam General Appearance: no apparent distress Eyes: normal inspection ENT: hearing grossly normal Neck: no JVD Respiratory/Chest: no respiratory distress, no accessory muscle use Cardiovascular: no JVD Extremities: normal inspection Neurologic/Psychiatric: alert, normal mood/affect, oriented x 3 Skin: normal color Laboratory Results Last 24 Hours Test 04/02/17 16:16 04/02/17 18:12 04/02/17 20:31 04/03/17 04:44 Bedside Glucose 51 mg/dl 101 mg/dl 207 mg/dl Sodium Level 137 mmol/L Potassium Level 4.8 mmol/L Chloride Level 97 mmol/L Carbon Dioxide Level 39 mmol/L Anion Gap 1.0 mmol/L Blood Urea Nitrogen 34 mg/dl Creatinine 1.30 mg/dl Est Creatinine Clear Calc Drug Dose 42.2 ml/min Estimated GFR () 62.7 Estimated GFR (Non- 54.1 BUN/Creatinine Ratio 26.2 Random Glucose 106 mg/dl Calcium Level 8.1 mg/dl Test 04/03/17 06:49 04/03/17 11:30 Bedside Glucose 114 mg/dl 173 mg/dl Assessment and Plan A/P: Gross hematuria, Right ureteral stone, fever, UTI, phimosis AFVSS. Gross hematuria resolved. Repeat UC&S preliminarily negative. Stone visible on KUB. Plan to avoid any surgical intervention unless the pt were to decompensate, develop fever, or ARF. Will tentatively plan for outpatient management of stone with possible circumcision vs dorsal slit once the pt has been optimized from a cardiopulmonary standpoint. Will start him on Flomax given his baseline voiding dysfunction. Trial of void when warranted by primary service. Will arrange for outpatient f/u with Dr. Jaramillo in 1-2 weeks. No further management at this time. Recall PRN issues. Thanks for allowing us to participate in this pt's care. Continued [facility] stay due to: multiple IV medications needed, home environment unsafe for pt, other (acute care continues) Discharge planning: uncertain
--- NOTE | 2017-04-03 17:23 | Progress Note ---
Internal Med Progress Note Date of Service: Apr 03, 2017. Provider Documentation: SUBJECTIVE: resting comfortably denies sob cough improving but still has some bloody sputum afebrile says did not ambulated yet OBJECTIVE: Vital Signs-as noted below Exam: General-alert and oriented. not in distress ENT-Normal hearing Neck-no neck masses Lungs-Cta b/l no wheezing or crackles Heart-S1 and S2 heard regular No murmurs Abdomen-Soft Bowel sounds present Non tender No distension Extremities-No edema No erythema Neuro-alert and awake moves extremities Lab data as noted below. ASSESSMENT & PLAN: 71 yo M admitted with COPD exacerbation from PCP office, suffered a hypoxic event after noncompliance with BIPAP on 03/25 and developed ?seizure activity. He was treated with Ativan and subsequently intubated in the ICU. He remained vented from 03/25- and was successfully extubated. He [facility] 03/[facility] and is doing well on nasal canula w BIPAP at night. He denies any SOB, chest pain, or any other pain anywhere. He denies any issues with swallowing and denies that food gets stuck in his esophagus on the modified diet currently. He reports profound weakness that is slowly improving. He is tolerating PO. 1. Acute respiratory failure, hypoxic and hypercapnic.-improved. Secondary to copd and chf. Steroid taper per pulm,On prednisone now. Cont nightly BIPAP and PRN during the day as needed. Cont scheduled bronchodilator therapy.Pt/ot. may need placement. Needs pulmonary followup 2. COPD-dependent on home oxygen. Continues to actively smoke per family. He is not a candidate for LVRS 2/2 his low FEV1 of <20%. 3. Acute systolic heart failure seen after hypoxic event with elevated troponins. Was treated intially with heparin drip. Asymptomatic currently. Latest TTE shows an improved EF. Cardiology added Toprol XL. Lasix was stopped 04/01 and held until he becomes more euvolemic as the diuresis was 40 IV q8hrs for several days and he has a metabolic alkalosis related to this. on ASA. 4. RLL pneumonia-completed a course of abx (Azithro and Ceftriaxone) The patient will need a 4-6 weeks follow-up xray as outpatient. 5. PAF-not anticoagulated, continues on diltiazem. 6. Dysphagia-Video swallow study was completed earlier during the hospitalization revealing no evidence of aspiration. Recommendations were made by [employer] including slippery diet, GERD precautions and aspiration precautions. A Barium swallow study was also recommended to better assess esophageal dysfunction. We may pursue this when he is able to stand upright for the required length of time for the test. Currently passed bedside swallow study post-extubation so will continue on current diet. He is doing well on this. Too weak to stand for further studies at this time. Tolerating mechanical soft diet. 7. Ambulatory dysfunction 2/2 deconditioning from prolonged hospitalization and ICU stay. cont PT/OT efforts. may need rehab 8. CHASITY-creatinine went from 1.4 to 1.6 likely related to aggressive diuresis and 1.3 today. Diuretics on hold. 9. Ureteral calculus-7mm obstructing calculus present in distal right ureter noted on CT 03/23 and seen again on repeat KUB today. Urology is following and considered stent, however, he has clinically improved and is not reporting any pain. Awaiting resolution of CHASITY and Uro would like pt to be optimized from a cardiopulmonary standpoint more before undergoing any procedure ideally. f/u with urology on discharge 10. Anemia-likely multifactorial related to dilution, acute blood loss 2/2 daily phlebotomy and anemia of chronic disease. No indication for transfusion at this time. 11. Tobacco use-encouraged to quit smoking. This is imperative at this point. 12. Thrombocytopenia.will f/u labs DVT PROPHYLAXIS hep sub q DISPOSITION monitor in tele pt/ot social service for d/c planning may need placement Vital Signs: Date Time Temp Pulse Resp B/P (MAP) Pulse Ox O2 Delivery O2 Flow Rate FiO2 04/03/17 15:03 36.5 99 33 152/90 (110) 96 Nasal Cannula 2.0 04/03/17 14:05 79 16 97 Nasal Cannula 2.0 04/03/17 12:00 92 04/03/17 12:00 97 Nasal Cannula 2.0 30 04/03/17 10:42 36.6 95 20 144/72 (96) 97 Nasal Cannula 2.0 04/03/17 08:00 97 Nasal Cannula 2.0 30 04/03/17 07:40 79 16 97 Nasal Cannula 2.0 04/03/17 07:08 36.9 85 24 137/92 (107) 98 Nasal Cannula 2.0 04/03/17 04:20 Nasal Cannula 3.0 04/03/17 03:56 36.7 84 26 128/71 (90) 94 04/03/17 02:13 70 16 92 Nasal Cannula 2.0 04/03/17 00:24 36.9 82 24 142/78 (99) 95 04/03/17 00:01 Nasal Cannula 3.0 04/02/17 20:00 97 Nasal Cannula 2.5 30 04/02/17 19:50 105 24 97 Nasal Cannula 2.0 04/02/17 18:54 37.0 105 25 141/71 (94) 97 Nasal Cannula 2.0 Lab Results: Results Past 24 Hours Test 04/02/17 18:12 04/02/17 20:31 04/03/17 04:44 04/03/17 06:49 Range/Units Bedside Glucose 101 207 114 70-99 mg/dl Sodium Level 137 136-145 mmol/L Potassium Level 4.8 3.5-5.1 mmol/L Chloride Level 97 98-107 mmol/L Carbon Dioxide Level 39 21-32 mmol/L Anion Gap 1.0 3-11 mmol/L Blood Urea Nitrogen 34 7-18 mg/dl Creatinine 1.30 0.60-1.40 mg/dl Est Creatinine Clear Calc Drug Dose 42.2 ml/min Estimated GFR () 62.7 Estimated GFR (Non- 54.1 BUN/Creatinine Ratio 26.2 10-20 Random Glucose 106 70-99 mg/dl Calcium Level 8.1 8.5-10.1 mg/dl Test 04/03/17 11:30 Range/Units Bedside Glucose 173 70-99 mg/dl
[2017-04-03] MEDS: TAMSULOSIN HCL 0.4 MG CAP PO SCH (20:25)
[2017-04-04] VITALS (15 sets, daily range): BP systolic 123–154; BP diastolic 72–86; PULSE 76–117; TEMP 36.4–37.2; O2SAT 94–100
[2017-04-04] MEDS: LEVALBUTEROL 1.25MG/0.5ML NEB INH PRN ×2 (00:40→10:45)
[2017-04-04] MEDS: IPRATROPIUM BROMIDE NEB SOLN 0.02% 2.5 ML VIAL INH PRN ×2 (00:40→10:45)
[2017-04-04] MEDS: LEVALBUTEROL 1.25MG/0.5ML NEB INH SCH ×4 (03:04→19:15)
[2017-04-04] MEDS: IPRATROPIUM BROMIDE NEB SOLN 0.02% 2.5 ML VIAL INH SCH ×4 (03:04→19:15)
[2017-04-04 06:37] LABS: HEMATOCRIT 31.5 % (42-52); HEMOGLOBIN 9.9 g/dL (14.0-18.0); IG# 0.16 K/uL (0.00-0.02); LYMPH % 4.5 %; LYMPH ABS # 0.65 K/uL (1.2-3.4); MEAN CELL VOLUME 100.6 fL (80-100); MEAN CORPUSCULAR HEMOGLOBIN 31.6 pg (25-34); MEAN CORPUSCULAR HGB CONC 31.4 g/dl (32-36); MEAN PLATELET VOLUME 11.4 fL (7.4-10.4); MONO % 7.4 %; MONO ABS # 1.08 K/uL (0.11-0.59); NEUT ABS # 12.69 K/uL (1.4-6.5); PLATELET COUNT 119 K/uL (130-400); RED CELL DISTRIBUTION WIDTH CV 14.7 % (11.5-14.5); RED CELL DISTRIBUTION WIDTH SD 52.8 fL (36.4-46.3); WHITE BLOOD COUNT 14.58 K/uL (4.8-10.8)
[2017-04-04 07:00] LABS: CALCIUM 8.2 mg/dl (8.5-10.1); CREATININE 1.16 mg/dl (0.60-1.40); POTASSIUM 5.1 mmol/L (3.5-5.1)
[2017-04-04] MEDS: METOPROLOL SUCC 25MG EXT REL TAB PO SCH (07:57)
[2017-04-04] MEDS: POTASSIUM CHLORIDE 20 MEQ/15 ML UDC PO SCH ×2 (07:58→13:37)
[2017-04-04] MEDS: ASPIRIN 81 MG CHEW PO SCH (07:59)
[2017-04-04] MEDS: INSULIN HUMAN REGULAR SC SCH ×4 (08:02→21:12)
[2017-04-04] MEDS: HEPARIN SOD 5000 UNIT/0.5 ML CARP SQ SCH ×2 (08:02→21:13)
--- NOTE | 2017-04-04 10:08 | Pharmacy Progress Note ---
Pharmacy Glycemic Short Note 2 Date of Service Apr 04, 2017. OUTPATIENT ANTIDIABETIC REGIMEN: * None ASSESSMENT: * W/o receiving any metabolic insulin on 04/03, his AM fasting BSGs look good. At this juncture I don't feel he requires anymore Lantus. PLAN FOR INPATIENT GLYCEMIC CONTROL: * Basal insulin: Will d/c Lantus and continue to monitor trend in his fasting BSGs * Bolus insulin * Will loosen up his CR slightly from 10-->12 to prevent him from trending down further. This reflects weight and a stress of 2. If BSGs become elevated at dinner, may wish to revert back to CR of 10. * Goal Range: Low 110 mg/dL - High 140 mg/dL * Correction Factor: Continue w/ 30 mg/dL/unit PLAN FOR DISCHARGE: * Unsure if he will be d/c'd on Prednisone 60mg daily. Will hold off on NPH at this point.
[2017-04-04] MEDS ORDERED: LISINOPRIL 5 MG TAB PO ONE (12:00)
--- NOTE | 2017-04-04 17:02 | Progress Note ---
Internal Med Progress Note Date of Service: Apr 04, 2017. Provider Documentation: SUBJECTIVE: resting comfortably sob and cough much improved afebrile no nausea ambulated in room ok ok for rehab OBJECTIVE: Vital Signs-as noted below Exam: General-alert and oriented. not in distress ENT-Normal hearing Neck-no neck masses Lungs-Cta b/l no wheezing or crackles Heart-S1 and S2 heard regular No murmurs Abdomen-Soft Bowel sounds present Non tender No distension Extremities-No edema No erythema Neuro-alert and awake moves extremities Lab data as noted below. ASSESSMENT & PLAN: As per "71 yo M admitted with COPD exacerbation from PCP office, suffered a hypoxic event after noncompliance with BIPAP on 03/25 and developed ? seizure activity. He was treated with Ativan and subsequently intubated in the ICU. He remained vented from 03/25- and was successfully extubated. He was transferred to [facility] 03/31 and is doing well on nasal canula w BIPAP at night. He denies any SOB, chest pain, or any other pain anywhere. He denies any issues with swallowing and denies that food gets stuck in his esophagus on the modified diet currently. He reports profound weakness that is slowly improving. He is tolerating PO". 1. Acute respiratory failure, hypoxic and hypercapnic.-improved. Secondary to copd and chf. Steroid taper per pulm,On prednisone now. Cont nightly BIPAP and PRN during the day as needed. Cont scheduled bronchodilator therapy.Pt/ot. may need placement. Needs pulmonary followup. Stable 2. COPD-dependent on home oxygen. Continues to actively smoke per family. He is not a candidate for LVRS 2/2 his low FEV1 of <20%.f/u as out patient 3. Acute systolic heart failure seen after hypoxic event with elevated troponins. Was treated intially with heparin drip. Asymptomatic currently. Latest TTE shows an improved EF. Cardiology added Toprol XL. Lasix was stopped 04/01 and held until he becomes more euvolemic as the diuresis was 40 IV q8hrs for several days and he has a metabolic alkalosis related to this. on ASA.Will restart home diuretics in am 4. RLL pneumonia-completed a course of abx (Azithro and Ceftriaxone) The patient will need a 4-6 weeks follow-up xray as outpatient. 5. PAF-not anticoagulated, continues on diltiazem. 6. Dysphagia-seen by speech s/p video swallow . Tolerating mechanical soft diet. 7. Ambulatory dysfunction 2/2 deconditioning from prolonged hospitalization and ICU stay. cont PT/OT efforts. may need rehab 8. CHASITY-creatinine went from 1.4 to 1.6 likely related to aggressive diuresis and 1.1 today. Diuretics on hold currently. 9. Ureteral calculus-7mm obstructing calculus present in distal right ureter noted on CT 03/23 and seen again on repeat KUB today. Urology is following and considered stent, however, he has clinically improved and is not reporting any pain. Awaiting resolution of CHASITY and Uro would like pt to be optimized from a cardiopulmonary standpoint more before undergoing any procedure ideally. f/u with urology on discharge 10. Anemia-likely multifactorial related to dilution, acute blood loss 2/2 daily phlebotomy and anemia of chronic disease. No indication for transfusion at this time. 11. Tobacco use-encouraged to quit smoking. This is imperative at this point. 12. Thrombocytopenia.will f/u labs DVT PROPHYLAXIS hep sub q DISPOSITION transfer to medical floor pt/ot social service for d/c planning may need placement Vital Signs: Date Time Temp Pulse Resp B/P (MAP) Pulse Ox O2 Delivery O2 Flow Rate FiO2 04/04/17 15:29 36.7 103 20 154/77 (102) 98 Nasal Cannula 3.0 04/04/17 15:00 36.9 112 20 149/78 (101) 97 Nasal Cannula 3.0 04/04/17 15:00 Nasal Cannula 3.0 04/04/17 14:29 36.9 113 16 98 3.0 04/04/17 14:26 113 16 98 Nasal Cannula 3.0 04/04/17 12:00 97 Nasal Cannula 2.0 30 04/04/17 12:00 100 04/04/17 10:46 117 16 95 Nasal Cannula 3.0 04/04/17 10:41 36.9 110 27 137/81 (99) 94 Nasal Cannula 2.0 04/04/17 08:00 97 Nasal Cannula 2.0 30 04/04/17 07:16 37.2 94 22 143/86 (105) 100 Nasal Cannula 2.0 04/04/17 07:02 91 16 96 Nasal Cannula 3.0 04/04/17 04:00 Nasal Cannula 2.0 04/04/17 03:50 36.6 90 18 138/73 (94) 95 Nasal Cannula 2.0 04/04/17 03:05 76 20 98 Nasal Cannula 3.0 04/04/17 00:40 88 20 97 Nasal Cannula 2.0 04/04/17 00:00 Nasal Cannula 2.0 04/03/17 23:18 36.5 91 23 133/76 (95) 100 Nasal Cannula 3.0 04/03/17 20:00 Nasal Cannula 3.0 04/03/17 19:04 37.0 112 16 159/88 (111) 99 Nasal Cannula 2.0 04/03/17 19:00 120 20 88 Nasal Cannula 2.0 Lab Results: Results Past 24 Hours Test 04/03/17 20:00 04/04/17 06:06 04/04/17 06:34 04/04/17 11:29 Range/Units Bedside Glucose 202 96 151 70-99 mg/dl White Blood Count 14.58 4.8-10.8 K/uL Red Blood Count 3.13 4.7-6.1 M/uL Hemoglobin 9.9 14.0-18.0 g/dL Hematocrit 31.5 42-52 % Mean Corpuscular Volume 100.6 80-100 fL Mean Corpuscular Hemoglobin 31.6 25-34 pg Mean Corpuscular Hemoglobin Concent 31.4 32-36 g/dl Platelet Count 119 130-400 K/uL Mean Platelet Volume 11.4 7.4-10.4 fL Neutrophils (%) (Auto) 87.0 % Lymphocytes (%) (Auto) 4.5 % Monocytes (%) (Auto) 7.4 % Eosinophils (%) (Auto) 0.0 % Basophils (%) (Auto) 0.0 % Neutrophils # (Auto) 12.69 1.4-6.5 K/uL Lymphocytes # (Auto) 0.65 1.2-3.4 K/uL Monocytes # (Auto) 1.08 0.11-0.59 K/uL Eosinophils # (Auto) 0.00 0-0.5 K/uL Basophils # (Auto) 0.00 0-0.2 K/uL RDW Standard Deviation 52.8 36.4-46.3 fL RDW Coefficient of Variation 14.7 11.5-14.5 % Immature Granulocyte % (Auto) 1.1 % Immature Granulocyte # (Auto) 0.16 0.00-0.02 K/uL Sodium Level 138 136-145 mmol/L Potassium Level 5.1 3.5-5.1 mmol/L Chloride Level 100 98-107 mmol/L Carbon Dioxide Level 40 21-32 mmol/L Anion Gap -2.0 3-11 mmol/L Blood Urea Nitrogen 30 7-18 mg/dl Creatinine 1.16 0.60-1.40 mg/dl Est Creatinine Clear Calc Drug Dose 48.4 ml/min Estimated GFR () 72.0 Estimated GFR (Non- 62.1 BUN/Creatinine Ratio 26.3 10-20 Random Glucose 95 70-99 mg/dl Calcium Level 8.2 8.5-10.1 mg/dl Magnesium Level 1.8 1.8-2.4 mg/dl Test 04/04/17 16:24 Range/Units Bedside Glucose 166 70-99 mg/dl
[2017-04-04] MEDS: AcetaZOLAMIDE 250 MG TAB PO SCH (20:10)
[2017-04-04] MEDS: TAMSULOSIN HCL 0.4 MG CAP PO SCH (21:09)
[2017-04-05 01:36] VITALS: PULSE 90; O2SAT 96
[2017-04-05] MEDS: IPRATROPIUM BROMIDE NEB SOLN 0.02% 2.5 ML VIAL INH SCH ×4 (01:36→18:55)
[2017-04-05] MEDS: LEVALBUTEROL 1.25MG/0.5ML NEB INH SCH ×4 (01:36→18:55)
[2017-04-05 06:29] LABS: BASO % 0.1 %; BASO ABS # 0.01 K/uL (0-0.2); HEMATOCRIT 31.5 % (42-52); HEMOGLOBIN 9.7 g/dL (14.0-18.0); IG# 0.11 K/uL (0.00-0.02); LYMPH % 4.3 %; LYMPH ABS # 0.64 K/uL (1.2-3.4); MEAN CELL VOLUME 100.3 fL (80-100); MEAN CORPUSCULAR HEMOGLOBIN 30.9 pg (25-34); MEAN CORPUSCULAR HGB CONC 30.8 g/dl (32-36); MEAN PLATELET VOLUME 11.7 fL (7.4-10.4); MONO % 6.9 %; MONO ABS # 1.02 K/uL (0.11-0.59); NEUT ABS # 13.05 K/uL (1.4-6.5); PLATELET COUNT 125 K/uL (130-400); RED CELL DISTRIBUTION WIDTH CV 14.7 % (11.5-14.5); RED CELL DISTRIBUTION WIDTH SD 53.4 fL (36.4-46.3); WHITE BLOOD COUNT 14.83 K/uL (4.8-10.8)
[2017-04-05 07:08] VITALS: BP 157/75; PULSE 103; TEMP 36.6; O2SAT 97
[2017-04-05 07:09] LABS: CALCIUM 8.3 mg/dl (8.5-10.1); CREATININE 1.19 mg/dl (0.60-1.40); POTASSIUM 4.9 mmol/L (3.5-5.1)
[2017-04-05 07:11] VITALS: PULSE 102; O2SAT 97
[2017-04-05] MEDS: FUROSEMIDE 20 MG TAB PO SCH (08:37)
[2017-04-05] MEDS: AcetaZOLAMIDE 250 MG TAB PO SCH ×2 (08:37→17:29)
[2017-04-05] MEDS: INSULIN HUMAN REGULAR SC SCH ×4 (08:47→20:34)
[2017-04-05] MEDS: METOPROLOL SUCC 25MG EXT REL TAB PO SCH (09:09)
[2017-04-05] MEDS: LISINOPRIL 5 MG TAB PO SCH (09:09)
--- NOTE | 2017-04-05 10:52 | Pulmonology Progress Note ---
Pulmonary Progress Note Date of Service Apr 05, 2017. Attending Dr. Cabral Subjective Patient continues to have some mild SOB on and off. He feels that this has worsened over the past 1 day. He did have some increased brown/blood tinged sputum last night. Pulmonary was contacted to see this patient again in regards to sputum changes. Discussed this patient with Dr. Thompson and Dr. Cabral. Labs reviewed: WBC 14.83 Hgb 9.7 BUN 29 Creatinine 1.19 Denies blood in stool, hematemesis. Appetite is good. Objective General: Patient is awake, alert, cooperative, and in no acute distress. Well developed. Well-nourished. Head: Normocephalic, Atraumatic. ENT: PERRLA, No discharge, EOMI, Sclera normal Neck: Normal ROM. Trachea midline. No stridor Respiratory: Mildly decreased breath sounds. No wheezing noted. No respiratory distress. No accessory muscle use. Abdomen: Nontender to palpation. Normal bowel sounds hear throughout. No guarding. Abdomen is soft and nontender Back: Normal inspection. Extremities: No edema, cyanosis. Normal ROM. SCD's in place Neuro: Alert, Oriented x 3. CN II-XII grossly intact. Sensation and motor function grossly intact. Psych: Mood and affect are normal. Assessment & Plan COPD- Very Severe Acute on chronic hypercapnia--improved Acute on chronic renal insufficiency Nephrolithiasis Bronchiectasis with brown/blood tinged sputum Patient with bronchiectasis, very severe COPD, and some blood tinged/brownish johnson sputum yesterday and overnight. The patient continues to saturate well on 3 L via nasal cannula. Continue O2 supplementation to maintain SaO2 between 88-92% ideally. It is not uncommon to have brownish/johnson sputum with bronchiectasis and even mild blood tinged sputum. Will check repeat sputum culture today though. Will also repeat Chest X-Ray to assess for any major changes. Continue aggressive pulmonary toilet. Continue to taper PO Prednisone. Continue with Xopenx/Ipratropium neb q6h. Encourage PT/OT. Continue with DVT ppx. Data Medications: Current Inpatient Medications Medications (Trade) Dose Ordered Sig/Rosemary Route Start Time Stop Time Status Last Admin Dose Admin Acetaminophen (Tylenol Tab) 650 mg Q4H PRN PO 03/18/17 20:30 04/17/17 20:29 03/26/17 08:50 650 MG Miscellaneous Information (Order Awaiting Action) 1 ea QS N/A 03/19/17 00:00 04/18/17 00:00 04/03/17 16:00 1 EA Enteral Nutritional Formula (Boost) 1 can BIDM PO 03/22/17 17:00 04/21/17 16:59 Future Hold 03/24/17 16:15 1 CAN Heparin Sodium (Porcine) (Heparin Sq 5000 Unit/0.5ml) 5,000 unit Q12 SQ 03/26/17 21:00 04/25/17 20:59 Future Hold 04/04/17 21:13 5,000 UNIT Aspirin (Aspirin Chew) 81 mg DAILY PO 03/28/17 09:00 04/27/17 08:59 Future Hold 04/04/17 07:59 81 MG Miscellaneous Information (Consult Glycemic Management Pharmacy) 1 ea UD PRN N/A 03/29/17 14:15 04/28/17 14:14 Lactulose (Chronulac Syrup) 30 gm Q6 PRN PO 03/30/17 08:30 04/29/17 08:29 Insulin Human Regular (novoLIN-R) SLIDING SCALE ACHS SC 03/31/17 11:00 04/30/17 10:59 04/05/17 08:47 7 UNITS Ipratropium Dumas (Atrovent 0.02% 0.5MG/2.5ML Neb) 0.5 mg Q6R INH 04/01/17 09:00 05/01/17 08:59 04/05/17 07:11 0.5 MG Levalbuterol (Xopenex 1.25MG/ 0.5ML Neb) 1.25 mg Q6R INH 04/01/17 09:00 05/01/17 08:59 04/05/17 07:11 1.25 MG Ipratropium Dumas (Atrovent 0.02% 0.5MG/2.5ML Neb) 0.5 mg Q4H PRN INH 04/01/17 07:30 05/01/17 07:29 04/04/17 10:45 0.5 MG Levalbuterol (Xopenex 1.25MG/ 0.5ML Neb) 1.25 mg Q4H PRN INH 04/01/17 07:30 05/01/17 07:29 04/04/17 10:45 1.25 MG Alprazolam (Xanax Tab) 1 mg Q8H PRN PO 04/01/17 19:00 04/27/17 18:59 Metoprolol Succinate (Toprol Xl Tab) 25 mg QAM PO 04/03/17 09:00 05/03/17 08:59 04/05/17 09:09 25 MG Tamsulosin HCl (Flomax Cap) 0.4 mg HS PO 04/03/17 21:00 05/03/17 20:59 04/04/17 21:09 0.4 MG Lisinopril (Zestril Tab) 5 mg QAM PO 04/05/17 08:00 05/05/17 08:59 04/05/17 09:09 5 MG Prednisone (PredniSONE TAB) 40 mg DAILY PO 04/05/17 08:00 05/03/17 08:59 04/05/17 08:36 40 MG Acetazolamide (Diamox Tab) 250 mg BID17 PO 04/04/17 20:00 05/04/17 19:59 04/05/17 08:37 250 MG Furosemide (Lasix Tab) 20 mg DAILY PO 04/05/17 08:00 05/05/17 07:59 04/05/17 08:37 20 MG Vital Signs: Date Time Temp Pulse Resp B/P (MAP) Pulse Ox O2 Delivery O2 Flow Rate FiO2 04/05/17 07:11 102 16 97 Nasal Cannula 3.0 04/05/17 07:08 36.6 103 18 157/75 (102) 97 Nasal Cannula 3.0 04/05/17 01:36 90 16 96 Nasal Cannula 3.0 04/05/17 00:00 Nasal Cannula 3.0 04/04/17 23:31 36.4 94 17 123/72 (89) 98 Nasal Cannula 2.0 04/04/17 20:00 Nasal Cannula 3.0 04/04/17 19:15 98 16 98 Nasal Cannula 3.0 04/04/17 15:29 36.7 103 20 154/77 (102) 98 Nasal Cannula 3.0 04/04/17 15:00 36.9 112 20 149/78 (101) 97 Nasal Cannula 3.0 04/04/17 15:00 Nasal Cannula 3.0 04/04/17 14:29 36.9 113 16 98 3.0 04/04/17 14:26 113 16 98 Nasal Cannula 3.0 04/04/17 12:00 97 Nasal Cannula 2.0 30 04/04/17 12:00 100 04/04/17 10:46 117 16 95 Nasal Cannula 3.0 04/04/17 10:41 36.9 110 27 137/81 (99) 94 Nasal Cannula 2.0 Laboratory Results: Last 24 Hours Test 04/04/17 11:29 04/04/17 16:24 04/04/17 20:33 04/05/17 05:55 Bedside Glucose 151 mg/dl 166 mg/dl 183 mg/dl White Blood Count 14.83 K/uL Red Blood Count 3.14 M/uL Hemoglobin 9.7 g/dL Hematocrit 31.5 % Mean Corpuscular Volume 100.3 fL Mean Corpuscular Hemoglobin 30.9 pg Mean Corpuscular Hemoglobin Concent 30.8 g/dl Platelet Count 125 K/uL Mean Platelet Volume 11.7 fL Neutrophils (%) (Auto) 88.0 % Lymphocytes (%) (Auto) 4.3 % Monocytes (%) (Auto) 6.9 % Eosinophils (%) (Auto) 0.0 % Basophils (%) (Auto) 0.1 % Neutrophils # (Auto) 13.05 K/uL Lymphocytes # (Auto) 0.64 K/uL Monocytes # (Auto) 1.02 K/uL Eosinophils # (Auto) 0.00 K/uL Basophils # (Auto) 0.01 K/uL RDW Standard Deviation 53.4 fL RDW Coefficient of Variation 14.7 % Immature Granulocyte % (Auto) 0.7 % Immature Granulocyte # (Auto) 0.11 K/uL Sodium Level 135 mmol/L Potassium Level 4.9 mmol/L Chloride Level 97 mmol/L Carbon Dioxide Level 37 mmol/L Anion Gap 1.0 mmol/L Blood Urea Nitrogen 29 mg/dl Creatinine 1.19 mg/dl Est Creatinine Clear Calc Drug Dose 47.2 ml/min Estimated GFR () 69.8 Estimated GFR (Non- 60.2 BUN/Creatinine Ratio 24.4 Random Glucose 130 mg/dl Calcium Level 8.3 mg/dl Magnesium Level 1.7 mg/dl Test 04/05/17 07:31 Bedside Glucose 125 mg/dl
--- NOTE | 2017-04-05 11:34 | DIAGNOSTIC IMAGING REPORT ---
CHEST 2 VIEWS ROUTINE CLINICAL HISTORY: Brown sputum production, increased SOB, bronchiectasis. COMPARISON STUDY: Chest CT March 19, 2017 and chest radiograph March 29, 2017 per FINDINGS: Severe upper lobe bullous emphysema, right greater than left, is noted. Lower lung predominant interstitial thickening is unchanged. Right basilar airspace opacity is unchanged. Left basilar opacity has improved. Endotracheal and nasogastric tubes have been removed. Cardiac size is stable. Small bilateral pleural effusions are noted. There is no pneumothorax. IMPRESSION: 1. Persistent but slightly improved bibasilar opacities, greater on the right. The findings favor improving pneumonia. 2. Severe upper lobe bullous emphysema. 3. Small bilateral pleural effusions. Electronically signed by: Mac Barron M.D. 04/05/2017 11:33 AM Dictated Date/Time: 04/05/2017 11:30 AM
[2017-04-05 14:13] VITALS: PULSE 103; O2SAT 99
[2017-04-05 14:53] VITALS: BP 111/66; PULSE 101; TEMP 37.3; O2SAT 100
--- NOTE | 2017-04-05 18:41 | Progress Note ---
Internal Med Progress Note Date of Service: Apr 05, 2017. Provider Documentation: SUBJECTIVE: resting comfortably says was sob in the morning but ok now still has jourdan sputum afebrile sob daily improving eating ok OBJECTIVE: Vital Signs-as noted below Exam: General-alert and oriented. not in distress ENT-Normal hearing Neck-no neck masses Lungs-Cta b/l no wheezing or crackles Heart-S1 and S2 heard regular No murmurs Abdomen-Soft Bowel sounds present Non tender No distension Extremities-No edema No erythema Neuro-alert and awake moves extremities Lab data as noted below. ASSESSMENT & PLAN: As per "71 yo M admitted with COPD exacerbation from PCP office, suffered a hypoxic event after noncompliance with BIPAP on 03/25 and developed ? seizure activity. He was treated with Ativan and subsequently intubated in the ICU. He remained vented from 03/25- and was successfully extubated. He was transferred to [facility] 03/31 and is doing well on nasal canula w BIPAP at night. He denies any SOB, chest pain, or any other pain anywhere. He denies any issues with swallowing and denies that food gets stuck in his esophagus on the modified diet currently. He reports profound weakness that is slowly improving. He is tolerating PO". 1. Acute respiratory failure, hypoxic and hypercapnic.-improved. Secondary to copd and chf. Steroid taper per pulm,On prednisone now. TO Cont nightly BIPAP and PRN during the day as needed. Cont scheduled bronchodilator therapy.Pt/ot. plan for placement. Needs pulmonary followup. Stable 2. COPD-dependent on home oxygen.Bronchiectasis Continues to actively smoke per family. He is not a candidate for LVRS 2/2 his low FEV1 of <20%.f/u as out patient. Still having jourdan sputum. Seen by pulmonary today. continue to monitor 3. Acute systolic heart failure seen after hypoxic event with elevated troponins. Was treated intially with heparin drip. Asymptomatic currently. Latest TTE shows an improved EF. Cardiology added Toprol XL. Lasix was stopped 04/01 and held until he becomes more euvolemic as the diuresis was 40 IV q8hrs for several days and he has a metabolic alkalosis related to this. on ASA.Restarted home diuretics . Will monitor 4. RLL pneumonia-completed a course of abx (Azithro and Ceftriaxone) The patient will need a 4-6 weeks follow-up xray as outpatient. f/u cxr today- improving 5. PAF-not anticoagulated, continues on diltiazem. 6. Dysphagia-seen by speech s/p video swallow . Tolerating mechanical soft diet. 7. Ambulatory dysfunction 2/2 deconditioning from prolonged hospitalization and ICU stay. cont PT/OT efforts. may need rehab 8. CHASITY-creatinine went from 1.4 to 1.6 likely related to aggressive diuresis and 1.1 today. Resolved 9. Ureteral calculus-7mm obstructing calculus present in distal right ureter noted on CT 03/23 and seen again on repeat KUB today. Urology is following and considered stent, however, he has clinically improved and is not reporting any pain. Awaiting resolution of CHASITY and Uro would like pt to be optimized from a cardiopulmonary standpoint more before undergoing any procedure ideally. f/u with urology on discharge 10. Anemia-likely multifactorial related to dilution, acute blood loss 2/2 daily phlebotomy and anemia of chronic disease. No indication for transfusion at this time. 11. Tobacco use-encouraged to quit smoking. This is imperative at this point. 12. Thrombocytopenia.will f/u labs.125 today DVT PROPHYLAXIS hep sub q DISPOSITION Monitor in medical floor pt/ot social service for d/c planning plan for placement Vital Signs: Date Time Temp Pulse Resp B/P (MAP) Pulse Ox O2 Delivery O2 Flow Rate FiO2 04/05/17 14:53 37.3 101 20 111/66 (81) 100 Nasal Cannula 3.0 04/05/17 14:13 103 16 99 Nasal Cannula 3.0 04/05/17 08:42 Nasal Cannula 3.0 04/05/17 07:11 102 16 97 Nasal Cannula 3.0 04/05/17 07:08 36.6 103 18 157/75 (102) 97 Nasal Cannula 3.0 04/05/17 01:36 90 16 96 Nasal Cannula 3.0 04/05/17 00:00 Nasal Cannula 3.0 04/04/17 23:31 36.4 94 17 123/72 (89) 98 Nasal Cannula 2.0 04/04/17 20:00 Nasal Cannula 3.0 04/04/17 19:15 98 16 98 Nasal Cannula 3.0 Lab Results: Results Past 24 Hours Test 04/04/17 20:33 04/05/17 05:55 04/05/17 07:31 04/05/17 11:24 Range/Units Bedside Glucose 183 125 90 70-99 mg/dl White Blood Count 14.83 4.8-10.8 K/uL Red Blood Count 3.14 4.7-6.1 M/uL Hemoglobin 9.7 14.0-18.0 g/dL Hematocrit 31.5 42-52 % Mean Corpuscular Volume 100.3 80-100 fL Mean Corpuscular Hemoglobin 30.9 25-34 pg Mean Corpuscular Hemoglobin Concent 30.8 32-36 g/dl Platelet Count 125 130-400 K/uL Mean Platelet Volume 11.7 7.4-10.4 fL Neutrophils (%) (Auto) 88.0 % Lymphocytes (%) (Auto) 4.3 % Monocytes (%) (Auto) 6.9 % Eosinophils (%) (Auto) 0.0 % Basophils (%) (Auto) 0.1 % Neutrophils # (Auto) 13.05 1.4-6.5 K/uL Lymphocytes # (Auto) 0.64 1.2-3.4 K/uL Monocytes # (Auto) 1.02 0.11-0.59 K/uL Eosinophils # (Auto) 0.00 0-0.5 K/uL Basophils # (Auto) 0.01 0-0.2 K/uL RDW Standard Deviation 53.4 36.4-46.3 fL RDW Coefficient of Variation 14.7 11.5-14.5 % Immature Granulocyte % (Auto) 0.7 % Immature Granulocyte # (Auto) 0.11 0.00-0.02 K/uL Sodium Level 135 136-145 mmol/L Potassium Level 4.9 3.5-5.1 mmol/L Chloride Level 97 98-107 mmol/L Carbon Dioxide Level 37 21-32 mmol/L Anion Gap 1.0 3-11 mmol/L Blood Urea Nitrogen 29 7-18 mg/dl Creatinine 1.19 0.60-1.40 mg/dl Est Creatinine Clear Calc Drug Dose 47.2 ml/min Estimated GFR () 69.8 Estimated GFR (Non- 60.2 BUN/Creatinine Ratio 24.4 10-20 Random Glucose 130 70-99 mg/dl Calcium Level 8.3 8.5-10.1 mg/dl Magnesium Level 1.7 1.8-2.4 mg/dl Test 04/05/17 16:32 Range/Units Bedside Glucose 144 70-99 mg/dl Microbiology Results 04/05/17 Gram Stain, Received Pending 04/05/17 Sputum Culture, Received Pending
[2017-04-05 18:55] VITALS: PULSE 109; O2SAT 96
[2017-04-05] MEDS: TAMSULOSIN HCL 0.4 MG CAP PO SCH (20:32)
[2017-04-05] MEDS: BOOST VANILLA PO SCH (20:34)
[2017-04-06] VITALS (8 sets, daily range): BP systolic 109–139; BP diastolic 62–75; PULSE 95–109; TEMP 36.7–37.1; O2SAT 96–99
[2017-04-06] MEDS: IPRATROPIUM BROMIDE NEB SOLN 0.02% 2.5 ML VIAL INH SCH ×4 (02:02→19:32)
[2017-04-06] MEDS: LEVALBUTEROL 1.25MG/0.5ML NEB INH SCH ×4 (02:02→19:32)
[2017-04-06 07:38] LABS: HEMATOCRIT 31.1 % (42-52); HEMOGLOBIN 9.7 g/dL (14.0-18.0); MEAN CELL VOLUME 99.7 fL (80-100); MEAN CORPUSCULAR HEMOGLOBIN 31.1 pg (25-34); MEAN CORPUSCULAR HGB CONC 31.2 g/dl (32-36); MEAN PLATELET VOLUME 11.1 fL (7.4-10.4); PLATELET COUNT 109 K/uL (130-400); RED CELL DISTRIBUTION WIDTH CV 14.4 % (11.5-14.5); RED CELL DISTRIBUTION WIDTH SD 52.2 fL (36.4-46.3)
[2017-04-06] MEDS: BOOST VANILLA PO SCH ×2 (08:00→17:00)
[2017-04-06 08:01] LABS: EOS % 0.1 %; EOS ABS # 0.02 K/uL (0-0.5); IG# 0.09 K/uL (0.00-0.02); LYMPH % 3.7 %; LYMPH ABS # 0.51 K/uL (1.2-3.4); MONO % 6.9 %; MONO ABS # 0.95 K/uL (0.11-0.59); NEUT % 88.6 %; NEUT ABS # 12.23 K/uL (1.4-6.5)
[2017-04-06 08:06] LABS: CALCIUM 8.2 mg/dl (8.5-10.1); CREATININE 1.45 mg/dl (0.60-1.40); POTASSIUM 4.5 mmol/L (3.5-5.1)
[2017-04-06] MEDS: INSULIN HUMAN REGULAR SC SCH ×4 (09:22→20:19)
[2017-04-06] MEDS: FUROSEMIDE 20 MG TAB PO SCH (10:28)
[2017-04-06] MEDS: MAGNESIUM OXIDE 400 MG TAB PO SCH (10:29)
[2017-04-06] MEDS: AcetaZOLAMIDE 250 MG TAB PO SCH ×2 (10:30→17:38)
[2017-04-06] MEDS: METOPROLOL SUCC 25MG EXT REL TAB PO SCH (10:30)
[2017-04-06] MEDS: LISINOPRIL 5 MG TAB PO SCH (10:30)
--- NOTE | 2017-04-06 11:54 | Pharmacy Progress Note ---
Pharmacy Glycemic Short Note 2 Date of Service Apr 06, 2017. OUTPATIENT ANTIDIABETIC REGIMEN: * N/A * HbA1c: 4.8% (03/31/17) ASSESSMENT: * Mr De La Cruz is a 71yo non-diabetic male, who has been experiencing steroid- induced hyperglycemia during admission. * Patient has not required any basal insulin for the past several days, and has been receiving ~15 units per day of prandial insulin with well-controlled BSGs. * Steroids have been tapering; pt is now receiving Prednisone 40mg PO daily. * Pt is ordered an AHA/low lactose diet, which he appears to be tolerating. PLAN FOR INPATIENT GLYCEMIC CONTROL: * Basal insulin * none required at this time * Bolus insulin * NovoLog per scale ACHS or Q6hrs while NPO * Goal Range: Low 110 mg/dL - High 140 mg/dL * Correction Factor: 30 mg/dL/unit * Nutritional / Prandial insulin per carb ratio of 1 unit per 12 grams CHO consumed PLAN FOR DISCHARGE: * Current A1c indicates that pt is not a diabetic, however, his BSGs have been sensitive to steroid use during this admission. * If patient will remain on steroids chronically after discharge, may need to consider the addition of anti-diabetic medications. * Once daily NPH perhaps?
--- NOTE | 2017-04-06 17:39 | Progress Note ---
Internal Med Progress Note Date of Service: Apr 06, 2017. Provider Documentation: SUBJECTIVE: resting comfortably says doing ok denies sob cough is better blood in sputum is better says he ambulated today eating ok OBJECTIVE: Vital Signs-as noted below Exam: General-alert and oriented. not in distress ENT-Normal hearing Neck-no neck masses Lungs-Cta b/l no wheezing or crackles Heart-S1 and S2 heard regular No murmurs Abdomen-Soft Bowel sounds present Non tender No distension Extremities-No edema No erythema Neuro-alert and awake moves extremities Lab data as noted below. ASSESSMENT & PLAN: As per "71 yo M admitted with COPD exacerbation from PCP office, suffered a hypoxic event after noncompliance with BIPAP on 03/25 and developed ? seizure activity. He was treated with Ativan and subsequently intubated in the ICU. He remained vented from 03/25- and was successfully extubated. He was transferred to [facility] 03/31 and is doing well on nasal canula w BIPAP at night. He denies any SOB, chest pain, or any other pain anywhere. He denies any issues with swallowing and denies that food gets stuck in his esophagus on the modified diet currently. He reports profound weakness that is slowly improving. He is tolerating PO". 1. Acute respiratory failure, hypoxic and hypercapnic.-improved. Secondary to copd and chf. Steroid taper per pulm,On prednisone now. TO Cont nightly BIPAP and PRN during the day as needed. Cont scheduled bronchodilator therapy.Pt/ot. Awaiting placement. Needs pulmonary followup. Stable 2. COPD-dependent on home oxygen.Bronchiectasis Continues to actively smoke per family. He is not a candidate for LVRS 2/2 his low FEV1 of <20%.f/u as out patient. Still having jourdan sputum. Seen by pulmonary again on 04/05/17. continue to monitor. stable 3. Acute systolic heart failure seen after hypoxic event with elevated troponins. Was treated intially with heparin drip. Asymptomatic currently. Latest TTE shows an improved EF. Cardiology added Toprol XL. Lasix was stopped 04/01 and held until he becomes more euvolemic as the diuresis was 40 IV q8hrs for several days and he has a metabolic alkalosis related to this. on ASA.Restarted home diuretics . Will monitor Stable conditions: 4. RLL pneumonia-completed a course of abx (Azithro and Ceftriaxone) The patient will need a 4-6 weeks follow-up xray as outpatient. f/u cxr today- improving 5. PAF-not anticoagulated, continues on diltiazem. 6. Dysphagia-seen by speech s/p video swallow . Tolerating mechanical soft diet. 7. Ambulatory dysfunction 2/2 deconditioning from prolonged hospitalization and ICU stay. cont PT/OT efforts. may need rehab 8. CHASITY-creatinine went from 1.4 to 1.6 likely related to aggressive diuresis and 1.1 today. Resolved 9. Ureteral calculus-7mm obstructing calculus present in distal right ureter noted on CT 03/23 and seen again on repeat KUB today. Urology is following and considered stent, however, he has clinically improved and is not reporting any pain. Awaiting resolution of CHASITY and Uro would like pt to be optimized from a cardiopulmonary standpoint more before undergoing any procedure ideally. f/u with urology on discharge. Plan to f/u repeat cx 10. Anemia-likely multifactorial related to dilution, acute blood loss 2/2 daily phlebotomy and anemia of chronic disease. No indication for transfusion at this time. 11. Tobacco use-encouraged to quit smoking. This is imperative at this point. 12. Thrombocytopenia.will f/u labs.109 today DVT PROPHYLAXIS scds DISPOSITION Monitor in medical floor pt/ot social service for d/c planning Await placement Vital Signs: Date Time Temp Pulse Resp B/P (MAP) Pulse Ox O2 Delivery O2 Flow Rate FiO2 04/06/17 14:45 36.7 98 18 109/64 (79) 99 3.0 04/06/17 14:18 95 16 96 Nasal Cannula 3.0 04/06/17 08:00 Nasal Cannula 3.0 04/06/17 07:39 36.7 109 20 116/74 (88) 99 3.0 04/06/17 06:56 108 16 98 Nasal Cannula 3.0 04/06/17 02:02 96 16 98 Nasal Cannula 3.0 04/06/17 00:06 36.8 97 16 139/75 (96) 98 Nasal Cannula 3.0 04/06/17 00:00 Nasal Cannula 3.0 04/05/17 18:55 109 16 96 Nasal Cannula 3.0 Lab Results: Results Past 24 Hours Test 04/05/17 20:10 04/06/17 07:27 04/06/17 11:19 04/06/17 16:08 Range/Units Bedside Glucose 154 119 168 70-99 mg/dl White Blood Count 13.80 4.8-10.8 K/uL Red Blood Count 3.12 4.7-6.1 M/uL Hemoglobin 9.7 14.0-18.0 g/dL Hematocrit 31.1 42-52 % Mean Corpuscular Volume 99.7 80-100 fL Mean Corpuscular Hemoglobin 31.1 25-34 pg Mean Corpuscular Hemoglobin Concent 31.2 32-36 g/dl Platelet Count 109 130-400 K/uL Mean Platelet Volume 11.1 7.4-10.4 fL Neutrophils (%) (Auto) 88.6 % Lymphocytes (%) (Auto) 3.7 % Monocytes (%) (Auto) 6.9 % Eosinophils (%) (Auto) 0.1 % Basophils (%) (Auto) 0.0 % Neutrophils # (Auto) 12.23 1.4-6.5 K/uL Lymphocytes # (Auto) 0.51 1.2-3.4 K/uL Monocytes # (Auto) 0.95 0.11-0.59 K/uL Eosinophils # (Auto) 0.02 0-0.5 K/uL Basophils # (Auto) 0.00 0-0.2 K/uL RDW Standard Deviation 52.2 36.4-46.3 fL RDW Coefficient of Variation 14.4 11.5-14.5 % Immature Granulocyte % (Auto) 0.7 % Immature Granulocyte # (Auto) 0.09 0.00-0.02 K/uL Sodium Level 136 136-145 mmol/L Potassium Level 4.5 3.5-5.1 mmol/L Chloride Level 97 98-107 mmol/L Carbon Dioxide Level 36 21-32 mmol/L Anion Gap 3.0 3-11 mmol/L Blood Urea Nitrogen 30 7-18 mg/dl Creatinine 1.45 0.60-1.40 mg/dl Est Creatinine Clear Calc Drug Dose 38.7 ml/min Estimated GFR () 55.0 Estimated GFR (Non- 47.4 BUN/Creatinine Ratio 20.5 10-20 Random Glucose 126 70-99 mg/dl Calcium Level 8.2 8.5-10.1 mg/dl Magnesium Level 1.9 1.8-2.4 mg/dl
[2017-04-06] MEDS: LACTULOSE SYRUP 30 GM/45 ML UDP PO PRN (18:42)
[2017-04-06] MEDS: TAMSULOSIN HCL 0.4 MG CAP PO SCH (20:15)
[2017-04-06] MEDS: ACETAMINOPHEN 325 MG TAB PO PRN (20:23)
[2017-04-07] VITALS (11 sets, daily range): BP systolic 116–124; BP diastolic 61–72; PULSE 94–114; TEMP 36.7–37.7; O2SAT 94–100
[2017-04-07] MEDS: IPRATROPIUM BROMIDE NEB SOLN 0.02% 2.5 ML VIAL INH SCH ×4 (00:25→19:10)
[2017-04-07] MEDS: LEVALBUTEROL 1.25MG/0.5ML NEB INH SCH ×4 (00:25→19:10)
[2017-04-07] MEDS: BOOST VANILLA PO SCH ×2 (08:00→17:36)
[2017-04-07] MEDS ORDERED: MICONAZOLE NITRATE POWDER 43 GM ONE (09:25)
[2017-04-07] MEDS: FUROSEMIDE 20 MG TAB PO SCH (09:30)
[2017-04-07] MEDS: MAGNESIUM OXIDE 400 MG TAB PO SCH (09:30)
[2017-04-07] MEDS: LACTULOSE SYRUP 30 GM/45 ML UDP PO PRN (09:30)
[2017-04-07] MEDS: AcetaZOLAMIDE 250 MG TAB PO SCH ×2 (09:30→17:35)
[2017-04-07] MEDS: LISINOPRIL 5 MG TAB PO SCH (09:31)
[2017-04-07] MEDS: METOPROLOL SUCC 25MG EXT REL TAB PO SCH (09:31)
[2017-04-07] MEDS: INSULIN HUMAN REGULAR SC SCH ×4 (09:41→20:57)
[2017-04-07 10:55] LABS: HEMATOCRIT 34.5 % (42-52); HEMOGLOBIN 10.9 g/dL (14.0-18.0); MEAN CELL VOLUME 100.3 fL (80-100); MEAN CORPUSCULAR HEMOGLOBIN 31.7 pg (25-34); MEAN PLATELET VOLUME 10.8 fL (7.4-10.4); PLATELET COUNT 131 K/uL (130-400); RED CELL DISTRIBUTION WIDTH CV 14.4 % (11.5-14.5); RED CELL DISTRIBUTION WIDTH SD 52.7 fL (36.4-46.3); WHITE BLOOD COUNT 14.19 K/uL (4.8-10.8)
[2017-04-07 10:58] LABS: MEAN CORPUSCULAR HGB CONC 31.6 g/dl (32-36)
--- NOTE | 2017-04-07 11:05 | DIAGNOSTIC IMAGING REPORT ---
HEAD CT NONCONTRAST CT DOSE: 537.48 mGy.cm HISTORY: left sided weakness TECHNIQUE: Multiaxial CT images of the head were performed without the use of intravenous contrast. Automated exposure control was utilized for this study. A dose lowering technique was utilized adhering to the principles of ALARA. Comparison: Head CT 03/25/2017. Findings: Mild mucosal thickening within the right maxillary sinus, unchanged. The mastoid air cells are clear. The calvarium and skull base are intact. There is no mass, hematoma, midline shift. There are similar appearing hypodense areas within the occipital lobes posteriorly and within the right frontal lobe. These measure between 2 and 3 cm in size and likely represent multifocal infarcts. These appear to involve the cortex and subcortical white matter. Impression: Interval development of focal hypodense areas within the occipital lobes posteriorly and within the right frontal lobe. These are consistent with acute infarcts. Electronically signed by: Jose You M.D. 04/07/2017 11:04 AM Dictated Date/Time: 04/07/2017 10:59 AM
[2017-04-07] MEDS ORDERED: ASPIRIN 81 MG ECTAB PO ONE (11:15)
[2017-04-07 11:17] LABS: ALBUMIN 3.3 gm/dl (3.4-5.0); CALCIUM 8.5 mg/dl (8.5-10.1); CREATININE 1.26 mg/dl (0.60-1.40); POTASSIUM 4.6 mmol/L (3.5-5.1)
[2017-04-07 11:24] LABS: TOTAL PROTEIN 6.3 gm/dl (6.4-8.2)
[2017-04-07 11:24] LABS: BASO % 0.1 %; BASO ABS # 0.01 K/uL (0-0.2); EOS % 0.3 %; EOS ABS # 0.04 K/uL (0-0.5); IG# 0.06 K/uL (0.00-0.02); LYMPH % 4.3 %; LYMPH ABS # 0.61 K/uL (1.2-3.4); MONO % 5.3 %; MONO ABS # 0.75 K/uL (0.11-0.59); NEUT % 89.6 %; NEUT ABS # 12.72 K/uL (1.4-6.5)
--- NOTE | 2017-04-07 12:14 | Pharmacy Progress Note ---
Glycemic Control Progress Note Date of Service Apr 07, 2017. Scope Glycemic Pharmacist consulted for glycemic control to write orders per [facility] inpatient glycemic control protocol. Objective Accuchecks BSG (last 24hrs): Test 04/06/17 16:08 04/06/17 20:13 04/07/17 07:53 04/07/17 10:41 Bedside Glucose 168 mg/dl (70-99) 178 mg/dl (70-99) 142 mg/dl (70-99) Random Glucose 128 mg/dl (70-99) Test 04/07/17 11:29 Bedside Glucose 114 mg/dl (70-99) HbA1c: Test 03/31/17 05:15 Hemoglobin A1c 4.8 % (4.5-5.6) Recent Pertinent Medications The patient is currently receiving: * Basal insulin: None currently * Correctional Insulin: Novolog Correction per scale ACHS Goal Range: Low 110 mg/dL - High 140 mg/dL Correction Factor: 30 mg/dL/unit * Prandial insulin: Per carb ratio of 1 unit per 12 grams CHO consumed Outpatient Anti-Diabetic Meds No prior dx of DM Assessment & Plan ASSESSMENT: 04/07/17 * Glycemic control remains acceptable; BSGs have ranged 119-178 over last 24 hrs * Prednisone 40mg PO daily continues * Fasting AM BSG higher this AM than prior days, FBS 142, no basal insulin on board. Will refrain from adding basal at this time as he has done well without basal thus far. Will reeval daily. * Post-prandial BSGs controlled with current CR and CF. PLAN FOR INPATIENT GLYCEMIC CONTROL: * No basal insulin at this time * Continuing correction factor of 30 mg/dl/unit * Continuing carb ratio of 1 unit per 12 grams CHO consumed * Continuing goal range of Low 110 mg/dL - High 140 mg/dL * Reevaluate insulin doses with each step down in steroid dose * Please note that the plan above was derived based on current level of insulin resistance and hospital stress. These recommendations are appropriate for inpatient admission only. Plan of care upon discharge will need to be reassessed to avoid potential outpatient hypo/hyperglycemia. Thank you.
[2017-04-07] MEDS: CLOPIDOGREL BISULFATE 75 MG TAB PO SCH (13:59)
[2017-04-07] MEDS: HEPARIN SOD 5000 UNIT/0.5 ML CARP SQ SCH ×2 (14:03→21:56)
--- NOTE | 2017-04-07 14:08 | NEUROLOGY CONSULTATION ---
DATE OF CONSULTATION: 04/07/2017 REASON FOR CONSULTATION: Possible stroke. HISTORY OF PRESENT ILLNESS: Mr. De La Cruz is a 71-year-old presumed right-handed male admitted to our facility on March 18 for respiratory insufficiency. He was doing reasonably well and was transferred to room 289 when a code purple was called on March 25. He was found to be cyanotic, hypoxic with a witnessed possible generalized seizure, some shaking of the head and arms, but nothing focal, received Ativan at the bedside and was transferred to the critical care unit. There was some subsequent head and eye deviation to the left. An EEG, which showed low voltage fast activity compatible with benzodiazepines. There was no ongoing seizure activity. An MRI of the brain at that point was said to be potentially consistent with PRES syndrome, although my partner felt it was more of a laminar necrosis related to hypoxemia. The abnormalities were cortically based in the bilateral posterior parietal and occipital lobes. As the EEG was normal and it was thought potentially that seizure occurred because of hypoxemia, the patient was not continued on anticonvulsants. He was gradually recuperating and moved to a non-telemetric bed, last evening had complaints about vision and this morning, was found to be weaker on the left. An EKG showed him to be in sinus tachycardia. His white count was 14, H&H 10.9 and 34. Blood gas, 7.35, 61, 113. Chemistry profile, sodium 137, potassium 4.6, BUN and creatinine 30/1.26, glucose 128, troponin positive. CT of the head was said to show focal hypodensity with the bilateral occipital posterior and in the right frontal. Dr. Thompson discussed this with radiology, subsequently reviewed his prior MRI and felt the finding in the right frontal region was likely new compared to MRI. Reviewing the prior MRI, I agree with this interpretation. His hospital course to summarize includes acute respiratory failure. He is on a steroid taper, continuing BiPAP at night. He has acute systolic heart failure after the hypoxic event with elevated troponin and treated initially with heparin drip asymptomatic. Currently, TTE showed improved EF, although a bubble studies have not been done on prior images. The patient was not on aspirin or had not been on any DVT prophylaxis with medications. His pneumonia had been treated and resolved with antibiotics. He has paroxysmal atrial fibrillation, not anticoagulated, continued on Diltiazem. He had ongoing dysphagia and was taking a mechanical soft diet. PAST MEDICAL HISTORY: His medical history is as above including diverticulosis, polyps in the colon on colonoscopy. Indicates a past history of a prior stroke. PAST SURGICAL HISTORY: Said to be none. ALLERGIES: LACTOSE AND POLLEN. FAMILY HISTORY: Stroke. 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 REVIEW OF SYSTEMS: Detailed review of systems is unable to be obtained due to mental status. CURRENT MEDICATIONS: Aspirin has been started. DVT prophylaxis started with heparin subQ. Boost, Mag-Ox, Zestril, prednisone taper, Lasix, Diamox, tamsulosin, metoprolol, alprazolam, Atrovent, levalbuterol, insulin sliding scale. PHYSICAL EXAMINATION: The patient is awake and alert, 36.7, 95, 16, 120/68, 100%. He is oriented. His spontaneous speech and language are slow, but not dysarthric. He is oriented to person, place, month and year. He is inaccurate in his history given in that he admits that he is weak, but indicates that he is weak on the right. He denies he has a mild frontal headache. He has right and left confusion. There is some neglect and minor denial. His pupils are equal, dense cataracts are noted. I could not reliably visualize the optic nerves. It is difficult to know the status of his layne. He clearly appears to have a left homonymous hemianopsia. He appears to be able to see to the right. He is able to state my eye color, but he is inconsistent in counting to the right. There is a right gaze preference, but he is able to move his eyes to the left. There is no facial anesthesia. Speech is nondysarthric, no facial droop. The left arm is about 3+. The left lower extremity 3+ to 4, approximately 3 distally, some of that limited by neglect. There is an occasional resting tremor of the left hand that appears to be of a pill-rolling type. I do not see any actual seizure activity. The movement will resolve with repositioning the arm. There is likely intact sensation on the left, but probably some double simultaneous extinction. His reflexes are diffusely brisk. His toes are downgoing. He is not reliable on [id number] and [id number]. Gait was not testable. Gag is mildly reduced, although he is able to tolerate water given in a straw. IMPRESSION: New right hemispheric infarct. PLAN: 1. Aspirin has been started. I would add Plavix 75 mg once a da/ 2. I would avoid hypotension. 3. I would repeat an echo with a bubble study. 4. Agree with DVT prophylaxis. 5. Recommend a carotid ultrasound. 6. Repeat CT of the head in 2 days and then consideration of anticoagulation with heparin if there are no contraindications. We will follow with you. JOSÉ MANUEL
--- NOTE | 2017-04-07 17:21 | DIAGNOSTIC IMAGING REPORT ---
BILATERAL CAROTID DOPPLER STUDY HISTORY: Left-sided weakness. Possible stroke. COMPARISON: Carotid Doppler 07/30/2008. TECHNIQUE: Real-time, grayscale, and color Doppler sonography of the carotid arteries was performed. Imaging reviewed in the transverse and longitudinal planes. All measurements were calculated based on NASCET criteria. FINDINGS: Antegrade flow is seen in the bilateral vertebral arteries. The brachial pressures are hemodynamically similar. Minimal calcified plaque within the bilateral carotid bulbs. The peak systolic velocity within the right ICA is 73 cm/s. The right systolic ratio is 0.9. The peak systolic velocity within the left ICA is 92 cm/s. The left systolic ratio is 0.7. IMPRESSION: No hemodynamically significant stenosis seen within the carotid arteries. Electronically signed by: Jose You M.D. 04/07/2017 5:20 PM Dictated Date/Time: 04/07/2017 5:18 PM
--- NOTE | 2017-04-07 18:52 | Progress Note ---
Internal Med Progress Note Date of Service: Apr 07, 2017. Provider Documentation: SUBJECTIVE: patient acted some what funny last night today morning around 8 am complained that he cannot see properly with left eye late developed left sided weakness denies sob cough improving afebrile stat ct head showed new rt frontal infarct and recent posterior circulation infarcts out of window for tpa transferred to tele OBJECTIVE: Vital Signs-as noted below Exam: General-alert and oriented. not in distress ENT-Normal hearing Neck-no neck masses Lungs-Cta b/l no wheezing or crackles Heart-S1 and S2 heard regular No murmurs Abdomen-Soft Bowel sounds present Non tender No distension Extremities-No edema No erythema Neuro-alert and awake left sided weakness speech clear no dysphagia no facial droop left pronator drift present Lab data as noted below. ASSESSMENT & PLAN: As per "71 yo M admitted with COPD exacerbation from PCP office, suffered a hypoxic event after noncompliance with BIPAP on 03/25 and developed ? seizure activity. He was treated with Ativan and subsequently intubated in the ICU. He remained vented from 03/25- and was successfully extubated. He was transferred to tele 03/31 and is doing well on nasal canula w BIPAP at night. He denies any SOB, chest pain, or any other pain anywhere. He denies any issues with swallowing and denies that food gets stuck in his esophagus on the modified diet currently. He reports profound weakness that is slowly improving. He is tolerating PO". Today 04/07/17 had left sided weakness and ct scan shows right parietal infarct Acute CVA Right hemisphere stroke on ct today recent MRI showed posterior circulation infarcts- thought to be hypoxia induced vs PRES added Plavix to aspirin holding lisinopril and reduced dose of Toprol xl for permissive htn monitor in tele neurology on board and appreciate inputs pt/ot speech evaluation. Presented with Acute respiratory failure, hypoxic and hypercapnic.-improved. Secondary to copd and chf. Steroid taper per pulm,On prednisone now. TO Cont nightly BIPAP and PRN during the day as needed. Cont scheduled bronchodilator therapy.Pt/ot. Awaiting placement. Needs pulmonary followup. Stable COPD-dependent on home oxygen.Bronchiectasis Continues to actively smoke per family. He is not a candidate for LVRS 2/2 his low FEV1 of <20%.f/u as out patient. Still having jourdan sputum which is improving . Seen by pulmonary again on 04/05/17. continue to monitor. stable Acute systolic heart failure seen after hypoxic event with elevated troponin. Was treated initially with heparin drip. Asymptomatic currently. Latest TTE shows an improved EF. Cardiology added Toprol XL. Lasix was stopped 04/01 and held until he becomes more euvolemic as the diuresis was 40 IV q8hrs for several days and he has a metabolic alkalosis related to this. on ASA.Restarted home diuretics . Will monitor. Requested o seen y cardio again secondary to today CVA. RLL pneumonia-completed a course of abx (Azithro and Ceftriaxone) The patient will need a 4-6 weeks follow-up xray as outpatient. f/u cxr today-improving PAF-not anticoagulated, continues on diltiazem.Plan to start on iv heparin in couple of days.cardiology on board. Dysphagia-seen by speech s/p video swallow . Tolerating mechanical soft diet. Ambulatory dysfunction 2/2 deconditioning from prolonged hospitalization and ICU stay. cont PT/OT efforts. plan for rehab CHASITY-creatinine went from 1.4 to 1.6 likely related to aggressive diuresis and 1.1 today. Resolved Ureteral calculus-7mm obstructing calculus present in distal right ureter noted on CT 03/23 and seen again on repeat KUB today. Urology is following and considered stent, however, he has clinically improved and is not reporting any pain. Awaiting resolution of CHASITY and Uro would like pt to be optimized from a cardiopulmonary standpoint more before undergoing any procedure ideally. f/u with urology on discharge. Plan to f/u repeat cx Anemia-likely multifactorial related to dilution, acute blood loss 2/2 daily phlebotomy and anemia of chronic disease. No indication for transfusion at this time. Tobacco use-encouraged to quit smoking. This is imperative at this point. Thrombocytopenia.will f/u labs.109 today DVT PROPHYLAXIS scds hep sub q DISPOSITION transfer to tele pt/ot social service for d/c planning Await placement Vital Signs: Date Time Temp Pulse Resp B/P (MAP) Pulse Ox O2 Delivery O2 Flow Rate FiO2 04/07/17 16:34 37.7 110 29 124/72 (89) 97 Room Air 04/07/17 16:00 Nasal Cannula 3.0 12/23/17 14:17 94 18 97 Nasal Cannula 3.0 04/07/17 12:45 37.2 102 18 116/68 (84) 99 Nasal Cannula 3.0 04/07/17 12:45 Room Air 04/07/17 12:43 37.0 114 16 118/67 (84) 94 Nasal Cannula 3.0 04/07/17 12:30 37.0 114 16 94 3.0 04/07/17 09:30 100 Nasal Cannula 3.0 04/07/17 07:35 36.7 95 16 120/68 (85) 100 Nasal Cannula 3.0 04/07/17 06:51 94 18 99 Nasal Cannula 3.0 04/07/17 00:27 101 18 98 Nasal Cannula 3.0 04/07/17 00:00 Nasal Cannula 3.0 04/06/17 23:58 37.1 99 20 113/62 (79) 98 Nasal Cannula 3.0 04/06/17 19:34 102 18 98 Nasal Cannula 3.0 04/06/17 19:30 Nasal Cannula 3.0 Lab Results: Results Past 24 Hours Test 04/06/17 20:13 04/07/17 07:53 04/07/17 10:41 04/07/17 10:42 Range/Units Bedside Glucose 178 142 70-99 mg/dl Sodium Level 137 136-145 mmol/L Potassium Level 4.6 3.5-5.1 mmol/L Chloride Level 98 98-107 mmol/L Carbon Dioxide Level 34 21-32 mmol/L Anion Gap 5.0 3-11 mmol/L Blood Urea Nitrogen 30 7-18 mg/dl Creatinine 1.26 0.60-1.40 mg/dl Est Creatinine Clear Calc Drug Dose 45.5 ml/min Estimated GFR () 65.2 Estimated GFR (Non- 56.2 BUN/Creatinine Ratio 23.5 10-20 Random Glucose 128 70-99 mg/dl Calcium Level 8.5 8.5-10.1 mg/dl Magnesium Level 2.1 1.8-2.4 mg/dl Total Bilirubin 0.8 0.2-1 mg/dl Aspartate Amino Transf (AST/SGOT) 26 15-37 U/L Alanine Aminotransferase (ALT/SGPT) 76 12-78 U/L Alkaline Phosphatase 64 45-117 U/L Troponin I 0.118 0-0.045 ng/ml Total Protein 6.3 6.4-8.2 gm/dl Albumin 3.3 3.4-5.0 gm/dl Globulin 3.0 2.5-4.0 gm/dl Albumin/Globulin Ratio 1.1 0.9-2 White Blood Count 14.19 4.8-10.8 K/uL Red Blood Count 3.44 4.7-6.1 M/uL Hemoglobin 10.9 14.0-18.0 g/dL Hematocrit 34.5 42-52 % Mean Corpuscular Volume 100.3 80-100 fL Mean Corpuscular Hemoglobin 31.7 25-34 pg Mean Corpuscular Hemoglobin Concent 31.6 32-36 g/dl Platelet Count 131 130-400 K/uL Mean Platelet Volume 10.8 7.4-10.4 fL Neutrophils (%) (Auto) 89.6 % Lymphocytes (%) (Auto) 4.3 % Monocytes (%) (Auto) 5.3 % Eosinophils (%) (Auto) 0.3 % Basophils (%) (Auto) 0.1 % Neutrophils # (Auto) 12.72 1.4-6.5 K/uL Lymphocytes # (Auto) 0.61 1.2-3.4 K/uL Monocytes # (Auto) 0.75 0.11-0.59 K/uL Eosinophils # (Auto) 0.04 0-0.5 K/uL Basophils # (Auto) 0.01 0-0.2 K/uL RDW Standard Deviation 52.7 36.4-46.3 fL RDW Coefficient of Variation 14.4 11.5-14.5 % Immature Granulocyte % (Auto) 0.4 % Immature Granulocyte # (Auto) 0.06 0.00-0.02 K/uL Toxic Granulation 1+ Stomatocytes 1+ Test 04/07/17 11:22 04/07/17 11:29 04/07/17 14:14 04/07/17 16:23 Range/Units Arterial Blood pH 7.35 7.35-7.45 Arterial Blood Partial Pressure CO2 61 35-46 mmHg Arterial Blood Partial Pressure O2 113 80-95 mm/Hg Arterial Blood HCO3 33 19-24 mmol/L Arterial Blood Oxygen Saturation 97.7 90-95 % Arterial Blood Base Excess 6.8 -9-1.8 mEq/L Arterial Blood Gas Delivery 3 L Howard Test POS POS Bedside Glucose 114 118 70-99 mg/dl Troponin I 0.119 0-0.045 ng/ml Test 04/07/17 16:29 Range/Units Bedside Glucose 169 70-99 mg/dl Microbiology Results 04/07/17 Blood Culture, Received Pending 04/07/17 Blood Culture, Received Pending 04/06/17 Urine Culture - Preliminary, Resulted NO GROWTH - LESS THAN 1,000 COLONIES/...
[2017-04-07] MEDS: TAMSULOSIN HCL 0.4 MG CAP PO SCH (20:39)
[2017-04-08] VITALS (10 sets, daily range): BP systolic 111–131; BP diastolic 55–68; PULSE 86–113; TEMP 36.6–37.4; O2SAT 95–99
[2017-04-08] MEDS: LEVALBUTEROL 1.25MG/0.5ML NEB INH SCH ×4 (01:59→18:55)
[2017-04-08] MEDS: IPRATROPIUM BROMIDE NEB SOLN 0.02% 2.5 ML VIAL INH SCH ×4 (01:59→18:55)
[2017-04-08] MEDS: HEPARIN SOD 5000 UNIT/0.5 ML CARP SQ SCH ×3 (05:26→21:20)
[2017-04-08] MEDS: BOOST VANILLA PO SCH ×2 (07:51→16:32)
[2017-04-08] MEDS: CLOPIDOGREL BISULFATE 75 MG TAB PO SCH (07:52)
[2017-04-08] MEDS: MAGNESIUM OXIDE 400 MG TAB PO SCH (07:52)
[2017-04-08] MEDS: ASPIRIN 81 MG ECTAB PO SCH (07:52)
[2017-04-08] MEDS: FUROSEMIDE 20 MG TAB PO SCH (07:52)
[2017-04-08] MEDS: AcetaZOLAMIDE 250 MG TAB PO SCH ×2 (07:52→16:32)
[2017-04-08] MEDS: METOPROLOL SUCC 25MG EXT REL TAB PO SCH (07:53)
[2017-04-08] MEDS: INSULIN HUMAN REGULAR SC SCH ×4 (08:04→21:20)
--- NOTE | 2017-04-08 09:53 | PROGRESS NOTE ---
DATE: 04/08/2017 FOLLOWUP VISIT SUBJECTIVE: Mr. De La Cruz is a 71-year-old male patient who was originally admitted due to acute respiratory failure. He has had a prolonged hospital stay and eventually was convalescing up on the nursing floor. He had left-sided weakness and an evaluation by neurology indicates a new stroke. The patient was moved back down to telemetry. He is currently in sinus rhythm. No new cardiac complaints. An earlier echocardiogram indicated a left ventricular ejection fraction of 30%-35%. OBJECTIVE: GENERAL: He is alert and oriented, in no acute distress. VITAL SIGNS: Blood pressure is 120/60 and pulse is regular at 90. He is afebrile. HEENT: He is normocephalic. Pupils are equal and reactive to light. Extraocular muscles are intact bilaterally. NECK: The neck veins are flat. Carotids have good upstrokes bilaterally without bruits. Thyroid is nonpalpable. RESPIRATORY: Breath sounds equal bilaterally and clear to auscultation. CARDIOVASCULAR: Heart has a regular rhythm. Normal S1 and S2. No S3 or S4. No cardiac rubs or murmurs. GASTROINTESTINAL: Abdomen is soft and nontender without organomegaly. EXTREMITIES: Free of edema, digit clubbing, or cyanosis. NEUROLOGIC: Grossly intact. SKIN: Warm to touch. LYMPH NODES: Negative to palpation. LABORATORY DATA: Hemoglobin is 10.9 and WBC count is 14. Troponin I is 0.17. Potassium is 4.6. IMPRESSION: 1. New right hemispheric stroke. 2. Chronic obstructive pulmonary disease. 3. Idiopathic cardiomyopathy. RECOMMENDATIONS: I agree with neurology that if the patient is stable, he should be started on anticoagulation. He is at risk for embolic events due to atrial fibrillation. Otherwise, I would continue his other medications. We will follow along with you during his hospital stay. JOSÉ MANUEL
--- NOTE | 2017-04-08 11:29 | Pharmacy Progress Note ---
Glycemic Control Progress Note Date of Service Apr 08, 2017. Scope Glycemic Pharmacist consulted for glycemic control to write orders per [facility] inpatient glycemic control protocol. Objective Accuchecks BSG (last 24hrs): Test 04/07/17 11:29 04/07/17 14:14 04/07/17 16:29 04/07/17 20:48 Bedside Glucose 114 mg/dl (70-99) 118 mg/dl (70-99) 169 mg/dl (70-99) 90 mg/dl (70-99) Test 04/08/17 06:42 Bedside Glucose 115 mg/dl (70-99) HbA1c: Test 03/31/17 05:15 Hemoglobin A1c 4.8 % (4.5-5.6) Recent Pertinent Medications The patient is currently receiving: * Basal insulin: None currently * Correctional Insulin: Regular insulin Correction per scale ACHS Goal Range: Low 110 mg/dL - High 140 mg/dL Correction Factor: 30 mg/dL/unit * Prandial insulin: Per carb ratio of 1 unit per 12 grams CHO consumed Outpatient Anti-Diabetic Meds no prior h/o DM and A1c is not consistent with DM Assessment & Plan ASSESSMENT: 04/07/17 * Glycemic control remains acceptable; BSGs have ranged 119-178 over last 24 hrs * Prednisone 40mg PO daily continues * Fasting AM BSG higher this AM than prior days, FBS 142, no basal insulin on board. Will refrain from adding basal at this time as he has done well without basal thus far. Will reeval daily. * Post-prandial BSGs controlled with current CR and CF. 04/08/17 * BSGs well controlled and within goals * Fasting acceptable with no basal insulin on board * Post-prandial BSGs are well controlled w/ current CR * Steroid: Prednisone 40mg PO daily continues. When steroid is tapered he may require less to no insulin PLAN FOR INPATIENT GLYCEMIC CONTROL: * No basal insulin at this time * Continuing correction factor of 30 mg/dl/unit * Continuing carb ratio of 1 unit per 12 grams CHO consumed * Continuing goal range of Low 110 mg/dL - High 140 mg/dL * Reevaluate insulin doses with each step down in steroid dose * Please note that the plan above was derived based on current level of insulin resistance and hospital stress. These recommendations are appropriate for inpatient admission only. Plan of care upon discharge will need to be reassessed to avoid potential outpatient hypo/hyperglycemia. Thank you.
--- NOTE | 2017-04-08 13:34 | PROGRESS NOTE ---
DATE: 04/08/2017 SUBJECTIVE: I am seeing Mr. De La Cruz in followup of right frontal infarction with radiographic evidence of bilateral occipital infarctions that had occurred in the setting of hypoxemia. Carotid ultrasound showed no significant stenosis and antegrade flow through the vertebral arteries. The patient has right/left confusion, but does admit that he is mildly weak on the left. He has no headache and has no complaints. He denies inability to see. He is able to state my eye color, but thinks I have red hair, unable to count fingers in either field, is able to state there is a window behind me. OBJECTIVE: CRANIAL NERVES: He is oriented to person, place and time. There is no facial droop. There is a tendency to a right gaze preference. NEUROMUSCULAR: The left arm is about 3+. He will not move his left leg today, although that appears on the basis of neglect. Reflexes are increased on the left. It is unclear if there is intact sensation on the left. IMPRESSION: Right frontal infarction. Recommend followup CT tomorrow. If the infarct is large, we will likely put off anticoagulation for another week or so in an effort to avoid hemorrhagic transformation. I have ordered a CTA in part to look at the posterior circulation as he has bioccipital infarctions. More than likely, this is embolic rather than atherosclerotic; however, the CTA should be done with the CT. I would try to avoid hypotension. Continue antiplatelet therapy with aspirin and Plavix at present. We will follow with you. JOSÉ MANUEL
--- NOTE | 2017-04-08 16:24 | Progress Note ---
Internal Med Progress Note Date of Service: Apr 08, 2017. Provider Documentation: SUBJECTIVE: resting comfortably eating fine no difficulty swallowing has weakness on left side afebrile no sob and cough better OBJECTIVE: Vital Signs-as noted below Exam: General-alert and oriented. not in distress ENT-Normal hearing Neck-no neck masses Lungs-Cta b/l no wheezing or crackles Heart-S1 and S2 heard regular No murmurs Abdomen-Soft Bowel sounds present Non tender No distension Extremities-No edema No erythema Neuro-alert and awake left sided weakness speech clear no dysphagia no facial droop left pronator drift present Lab data as noted below. ASSESSMENT & PLAN: As per "71 yo M admitted with COPD exacerbation from PCP office, suffered a hypoxic event after noncompliance with BIPAP on 03/25 and developed ? seizure activity. He was treated with Ativan and subsequently intubated in the ICU. He remained vented from 03/25- and was successfully extubated. He was transferred to tele 03/31 and is doing well on nasal canula w BIPAP at night. He denies any SOB, chest pain, or any other pain anywhere. He denies any issues with swallowing and denies that food gets stuck in his esophagus on the modified diet currently. He reports profound weakness that is slowly improving. He is tolerating PO". On 04/07/17 had left sided weakness and ct scan shows right parietal infarct. Acute CVA Right hemisphere stroke on ct 04/07/17 recent MRI showed posterior circulation infarcts- thought to be hypoxia induced vs PRES added Plavix to aspirin holding lisinopril and reduced dose of Toprol xl for permissive htn monitor in tele neurology on board and appreciate inputs pt/ot speech evaluation. will f/u ct head and cta head in am plan for iv heparin/Coumadin as per neurology Presented with Acute respiratory failure, hypoxic and hypercapnic.-improved. Secondary to copd and chf. Steroid taper per pulm,On prednisone now. TO Cont nightly BIPAP and PRN during the day as needed. Cont scheduled bronchodilator therapy.Pt/ot. Awaiting placement. Needs pulmonary followup. 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 He is not a candidate for LVRS 2/2 his low FEV1 of <20%.f/u as out patient. Still having jourdan sputum which is improving . Seen by pulmonary again on 04/05/17. continue to monitor. stable Acute systolic heart failure seen after hypoxic event with elevated troponin. Was treated initially with heparin drip. Asymptomatic currently. Latest TTE shows an improved EF. Cardiology added Toprol XL. Lasix was stopped 04/01 and held until he becomes more euvolemic as the diuresis was 40 IV q8hrs for several days and he has a metabolic alkalosis related to this. on ASA.Restarted home diuretics . Will monitor. Requested o seen by cardio again secondary to today CVA. RLL pneumonia-completed a course of abx (Azithro and Ceftriaxone) The patient will need a 4-6 weeks follow-up xray as outpatient. f/u cxr -improving PAF-not anticoagulated, continues on diltiazem.Plan to start on iv heparin soon.cardiology on board. Dysphagia-seen by speech s/p video swallow . Tolerating mechanical soft diet. Ambulatory dysfunction 2/2 deconditioning from prolonged hospitalization and ICU stay. cont PT/OT efforts. plan for rehab CHASITY-creatinine went from 1.4 to 1.6 likely related to aggressive diuresis and 1.1 today. Resolved Ureteral calculus-7mm obstructing calculus present in distal right ureter noted on CT 03/23 and seen again on repeat KUB today. Urology is following and considered stent, however, he has clinically improved and is not reporting any pain. Awaiting resolution of CHASITY and Uro would like pt to be optimized from a cardiopulmonary standpoint more before undergoing any procedure ideally. f/u with urology on discharge. repeat cx no growth Anemia-likely multifactorial related to dilution, acute blood loss 2/2 daily phlebotomy and anemia of chronic disease. No indication for transfusion at this time. Tobacco use-encouraged to quit smoking. This is imperative at this point. Thrombocytopenia.will f/u labs.109 today DVT PROPHYLAXIS scds hep sub q DISPOSITION Monitor in tele pt/ot social service for d/c planning Await placement Code status Full as per my discussion with patient Vital Signs: Date Time Temp Pulse Resp B/P (MAP) Pulse Ox O2 Delivery O2 Flow Rate FiO2 04/08/17 15:34 37.0 96 25 116/56 (76) 96 Nasal Cannula 2.0 04/08/17 15:15 Nasal Cannula 3.0 04/08/17 14:18 100 18 95 Nasal Cannula 2.0 04/08/17 12:00 Nasal Cannula 3.0 04/08/17 11:52 37.1 103 23 112/59 (76) 98 Nasal Cannula 2.0 04/08/17 08:00 Nasal Cannula 3.0 04/08/17 08:00 36.9 90 20 126/55 (78) 98 Nasal Cannula 2.0 04/08/17 07:00 94 18 98 Nasal Cannula 3.0 04/08/17 04:23 36.6 97 20 113/61 (78) 99 04/08/17 04:00 Nasal Cannula 3.0 04/08/17 01:59 91 18 96 Nasal Cannula 3.0 04/08/17 00:19 37.0 86 16 111/55 (73) 96 3.0 04/07/17 23:59 Nasal Cannula 3.0 04/07/17 20:00 Nasal Cannula 3.0 04/07/17 20:00 120/61 (80) 04/07/17 19:10 109 20 98 Nasal Cannula 3.0 04/07/17 16:34 37.7 110 29 124/72 (89) 97 Room Air Lab Results: Results Past 24 Hours Test 04/07/17 16:23 04/07/17 16:29 04/07/17 20:35 04/07/17 20:48 Range/Units Troponin I 0.119 0.144 0-0.045 ng/ml Bedside Glucose 169 90 70-99 mg/dl Test 04/08/17 06:42 04/08/17 07:39 Range/Units Bedside Glucose 115 70-99 mg/dl Troponin I 0.117 0-0.045 ng/ml
[2017-04-08] MEDS: TAMSULOSIN HCL 0.4 MG CAP PO SCH (19:41)
[2017-04-09] VITALS (9 sets, daily range): BP systolic 93–134; BP diastolic 45–66; PULSE 88–117; TEMP 36.5–37; O2SAT 90–98
[2017-04-09] MEDS: LEVALBUTEROL 1.25MG/0.5ML NEB INH SCH ×3 (02:15→19:04)
[2017-04-09] MEDS: IPRATROPIUM BROMIDE NEB SOLN 0.02% 2.5 ML VIAL INH SCH ×3 (02:15→19:04)
[2017-04-09] MEDS: HEPARIN SOD 5000 UNIT/0.5 ML CARP SQ SCH ×3 (06:11→22:28)
[2017-04-09 06:26] LABS: HEMATOCRIT 25.9 % (42-52); HEMOGLOBIN 8.4 g/dL (14.0-18.0); MEAN CELL VOLUME 99.6 fL (80-100); MEAN CORPUSCULAR HEMOGLOBIN 32.3 pg (25-34); MEAN CORPUSCULAR HGB CONC 32.4 g/dl (32-36); MEAN PLATELET VOLUME 10.7 fL (7.4-10.4); PLATELET COUNT 102 K/uL (130-400); RED CELL DISTRIBUTION WIDTH CV 14.7 % (11.5-14.5); RED CELL DISTRIBUTION WIDTH SD 53.2 fL (36.4-46.3); WHITE BLOOD COUNT 11.39 K/uL (4.8-10.8)
[2017-04-09 06:46] LABS: EOS % 0.3 %; EOS ABS # 0.03 K/uL (0-0.5); IG# 0.04 K/uL (0.00-0.02); LYMPH % 5.5 %; LYMPH ABS # 0.63 K/uL (1.2-3.4); MONO ABS # 0.68 K/uL (0.11-0.59); NEUT % 87.8 %; NEUT ABS # 10.01 K/uL (1.4-6.5)
[2017-04-09 06:59] LABS: CALCIUM 8.1 mg/dl (8.5-10.1); CREATININE 1.35 mg/dl (0.60-1.40); POTASSIUM 4.1 mmol/L (3.5-5.1)
[2017-04-09] MEDS: BOOST VANILLA PO SCH ×2 (07:30→16:45)
[2017-04-09] MEDS: FUROSEMIDE 20 MG TAB PO SCH (08:13)
[2017-04-09] MEDS: METOPROLOL SUCC 25MG EXT REL TAB PO SCH (08:13)
[2017-04-09] MEDS: AcetaZOLAMIDE 250 MG TAB PO SCH ×2 (08:13→16:44)
[2017-04-09] MEDS: CLOPIDOGREL BISULFATE 75 MG TAB PO SCH (08:13)
[2017-04-09] MEDS: ASPIRIN 81 MG ECTAB PO SCH (08:14)
[2017-04-09] MEDS: MAGNESIUM OXIDE 400 MG TAB PO SCH (08:14)
[2017-04-09] MEDS: INSULIN HUMAN REGULAR SC SCH ×4 (08:16→22:28)
[2017-04-09] MEDS ORDERED: OPTIRAY 320 IV PRN (09:15)
[2017-04-09] MEDS ORDERED: DEXTROSE 50% 50 ML SYR ONE (11:21)
[2017-04-09] MEDS ORDERED: NURSING VERBAL MED ORDER ONE (11:30)
--- NOTE | 2017-04-09 11:46 | DIAGNOSTIC IMAGING REPORT ---
ANGIOGRAPHY HEAD COMBO, NECK ANGIO WITH CONTRAST CLINICAL HISTORY: 71 years-old Male presenting with left-sided weakness. TECHNIQUE: Multidetector CT angiography of the head and neck was performed after the administration of intravenous contrast. Initial noncontrast multidetector CT imaging of the head was performed. 3-D volumetric and/or maximum intensity projection (MIP) images were subsequently reconstructed for review from postcontrast imaging. IV contrast: 93 mL of Optiray 320. A dose lowering technique was used consistent with the principles of ALARA (as low as reasonably achievable). Stenosis measurements were based on NASCET-like criteria. COMPARISON: Noncontrast CT head from 04/07/2017. CT DOSE (mGy.cm): The estimated cumulative dose is 1115.53 mGy.cm. FINDINGS: Switch Crew Supervisor topogram: Unremarkable. NONCONTRAST CT HEAD: Ventricles and sulci normal in size. Extensive hypodensity in the bilateral paramedian a subtle lobes as well as in the right frontal lobe, which are less dense than on the prior exam consistent with evolving infarcts. Minimal regional mass effect. No midline shift. No hemorrhage. No extra-axial fluid collection. Polypoid mucosal thickening in the right maxillary sinus. Calvarium intact. CTA HEAD: Anterior circulation demonstrates patent intracranial portions of the internal carotid arteries. Atherosclerosis of the cavernous segments of the bilateral ICAs without significant narrowing. Bilateral anterior and middle cerebral arteries patent proximally. The bilateral anterior cerebellar arteries are diminutive and irregular in their course along the body of the corpus callosum (series 600 image 36). The distal arteries in the right MCA territory are more diminutive than the left. Anterior communicating artery patent. Early branching of the right MCA. The posterior circulation demonstrates codominant vertebral arteries contributing to the patent basilar artery. The anatomy of the superior cerebellar and posterior cerebral arteries at the origin of the basilar artery are difficult to evaluate as the superior cerebellar arteries are suspected to be highly diminutive. In reality, only one major artery branches to either side near the basilar tip, and this is felt to most likely represent posterior cerebral arteries. 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 This aneurysmal dilatation measures 2.6 mm (series 6 image 54). The basilar tip itself is also slightly aneurysmal. The distal portions of the posterior cerebral arteries are irregular and diminutive. Evaluation is degraded by early opacification of the deep cerebral veins. Hypoplastic or aplastic left posterior communicating artery. Right posterior communicating artery diminutive but patent. CTA NECK: Three-vessel aortic arch. Atherosclerosis of aortic arch with patent origins of the major branch vessels. Bilateral common carotid arteries patent. No significant plaque burden at the carotid bulbs. Bilateral internal carotid arteries also patent along their entire course. Emphysema at the apices with large bulla. IMPRESSION: 1. Findings again consistent with evolving acute to subacute infarcts in the bilateral occipital lobes and right frontal lobe. No hemorrhagic conversion. 2. Irregularity and diminutive caliber of the distal arteries in the intracranial vasculature, specifically the anterior cerebral and posterior cerebral arteries. This could represent decreased flow in the presence of ischemia/infarct. No focal vessel occlusion. Less likely diagnostic considerations include a central nervous vasculitis, such as primary angitis the COLOR MAKING SUPERVISOR. 3. 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 Please see above for anatomic variations and early venous opacification accounting for the degree of uncertainty. 4. No evidence of dissection, focal vessel occlusion, or significant stenosis of the cervical vasculature. 5. Emphysema and apical bulla. Electronically signed by: Hamzah Baird M.D. 04/09/2017 11:44 AM Dictated Date/Time: 04/09/2017 11:27 AM
--- NOTE | 2017-04-09 12:44 | Pharmacy Progress Note ---
Pharmacy Glycemic Sign Off Nt Date of Service Apr 09, 2017. Assessment & Plan ASSESSMENT: * Pharmacy was consulted by Dr Lares on 03/29/17 for glycemic control and to write orders per [facility] inpatient glycemic control protocol. * Major changes made by pharmacy to antidiabetic regimen include: * Pt without history of diabetes, A1c normal, but pt with significant sustained steroid induced hyperglycemia * SQ basal bolus insulin regimen initiated and has been titrated daily based on steroid dosing. * Patient has been receiving/requiring ~15 units of insulin per day for adequate glycemic control but anticipate that he will not need any insulin now that prednisone is tapering * BSGs ranging 49-164 mg/dl * Pt with LOW BSG today prior to lunch - carb coverage no longer needed * Pharmacy will sign off of care PLAN FOR INPATIENT GLYCEMIC CONTROL: No changes needed to current regimen. Hospitalist already stopped carb coverage * Continue Regular per scale ACHS/Q6hrs while NPO * Goal range = 110 - 140 mg/dl * CF = 30 mg/dl/unit * CR = 1 unit for ever -- g CHO consumed * Pharmacy is signing off of glycemic consult and will no longer be making adjustments to inpatient regimen. Please feel free to re-consult if needed. Thank you. DISCHARGE RECOMMENDATIONS: * A1c 4.8 % on 03/31/17 * This is normal
--- NOTE | 2017-04-09 12:56 | PROGRESS NOTE ---
DATE: 04/09/2017 FOLLOWUP VISIT SUBJECTIVE: The patient is a 71-year-old male originally admitted with acute respiratory failure. He has had a prolonged hospital stay. He was convalescing up on the nursing floor. He suddenly developed left-sided weakness with evidence clinically of a new stroke. He has had multiple imaging scans, which indicate bilateral occipital lobe infarcts as well as a frontal lobe infarct. He has been moved to telemetry. Over the past 24 hours, I have reviewed his disclosure and he has had no atrial arrhythmias. He does have some ventricular arrhythmias consisting of PVCs and 2-3 beats. He has a history of ischemic cardiomyopathy with an estimated left ventricular ejection fraction of 30%-35%. OBJECTIVE: GENERAL: He is alert. He is sitting in a wheelchair with left-sided neglect. VITAL SIGNS: Blood pressure is 95/60, pulse is regular at 90 beats per minute. He is afebrile. HEENT: Normocephalic. Pupils are equal and reactive to light. Extraocular muscles are intact bilaterally. NECK: The neck veins are flat. Carotids have good upstrokes bilaterally without bruits. Thyroid is nonpalpable. RESPIRATORY: Breath sounds are equal bilaterally and clear to auscultation. CARDIOVASCULAR: Heart has a regular rhythm. Normal S1, S2. No cardiac rubs or murmurs. GASTROINTESTINAL: Abdomen is soft, nontender without organomegaly. EXTREMITIES: Free of edema, digit clubbing, or cyanosis. NEUROLOGIC: The patient has left-sided weakness. SKIN: Warm to touch. LYMPH NODES: Negative to palpation. IMPRESSION: 1. Multiple cerebral infarcts followed by neurology. 2. Chronic obstructive pulmonary disease. 3. Ischemic cardiomyopathy. RECOMMENDATIONS: The patient is only on DVT prophylaxis with heparin and dual antiplatelet therapy. Per neurology, full anticoagulation is risky at this time due to his multiple large infarcts. I will discontinue his Flomax as well as his metoprolol due to low blood pressures per neurology request. So far, he showed no evidence of atrial arrhythmias.
--- NOTE | 2017-04-09 13:23 | PROGRESS NOTE ---
DATE: 04/09/2017 SUBJECTIVE: I am seeing Mr. De La Cruz in followup. Dr. Mahoney had seen him for a hypoxic event. He has a history of atrial fibrillation and a cardiomyopathy. Approximately 2 days ago, developed left-sided weakness, impaired vision. CT showed bioccipital infarcts, although to a certain extent that was seen on prior MRI and a right frontal infarct. Today, the 48-hour CT of the head was performed in conjunction with the CTA. The CT of the head shows more defined bilateral occipital infarction and a right frontal infarction. There is minimal regional mass effect in the right frontal infarction. The CTA of the head shows irregular and diminutive caliber of the distal arteries of the intracranial vasculature, specifically the anterior cerebral and posterior cerebral arteries, could represent decreased flow in the presence of infarct. No focal occlusion, less likely SOCIAL MEDIA COMMUNITY MANAGER vasculitis primary angiitis of the SOCIAL MEDIA COMMUNITY MANAGER. There is aneurysmal dilatation in the infundibulum at the origin of the left FORMING PRESS OPERATOR, measuring 2.6 mm. The basilar tip was slightly aneurysmal. Evaluation is degraded by early opacification of the deep cerebral veins. PHYSICAL EXAMINATION: VITAL SIGNS: 36.9, 99, 16, 93/45, 97%. GENERAL: The patient is awake and alert, thought it was March 2016. Oriented to person and place. It is unclear if there is any intact vision. He was able to state I was wearing a white jacket and query count fingers somewhat inconsistently in the right visual field to the right eye. Clearly impaired vision on the left. There is a right gaze preference minimal if any dysarthria, left upper extremity is about 3, left lower about 3 as well. IMPRESSION AND PLAN: Right frontal, bilateral occipital infarctions, acute. Due to the mass effect in the right frontal and the extensive bilateral occipital, I would wait at least a week from the onset of the stroke (2 days ago ,) repeat imaging at that point and then consider anticoagulation. I would continue with dual antiplatelet therapy, DVT prophylaxis, trying to avoid hypotension. Re abnl CTA cow Clinically, I doubt that the patient has a SOCIAL MEDIA COMMUNITY MANAGER vasculitis. At some point in the future as the patient recovers, a repeat CTA or MRA of the [place] of [place] may be reasonable to assess the presence or absence of an aneurysm. Dr. Mahoney will be taking over the service tomorrow. JOSÉ MANUEL
[2017-04-09] MEDS: METOPROLOL TARTRATE 1 MG/ML VIAL IV PRN (14:02)
--- NOTE | 2017-04-09 18:33 | Progress Note ---
Internal Med Progress Note Date of Service: Apr 09, 2017. Provider Documentation: SUBJECTIVE: sitting comfortably on the chair eating ok sob improving has some cough says has mild chest discomfort no nausea OBJECTIVE: Vital Signs-as noted below Exam: General-alert and oriented. not in distress ENT-Normal hearing Neck-no neck masses Lungs-Cta b/l no wheezing or crackles Heart-S1 and S2 heard regular No murmurs Abdomen-Soft Bowel sounds present Non tender No distension Extremities-No edema No erythema Neuro-alert and awake left sided weakness speech clear no dysphagia no facial droop left pronator drift present Lab data as noted below. ASSESSMENT & PLAN: As per "71 yo M admitted with COPD exacerbation from PCP office, suffered a hypoxic event after noncompliance with BIPAP on 03/25 and developed ? seizure activity. He was treated with Ativan and subsequently intubated in the ICU. He remained vented from 03/25- and was successfully extubated. He was transferred to tele 03/31 and is doing well on nasal canula w BIPAP at night. He denies any SOB, chest pain, or any other pain anywhere. He denies any issues with swallowing and denies that food gets stuck in his esophagus on the modified diet currently. He reports profound weakness that is slowly improving. He is tolerating PO". On 04/07/17 had left sided weakness and ct scan shows right parietal infarct. Acute CVA Right hemisphere stroke on ct 04/07/17 recent MRI showed posterior circulation infarcts- thought to be hypoxia induced vs PRES added Plavix to aspirin holding lisinopril and reduced dose of Toprol xl for permissive htn monitor in tele neurology on board and appreciate inputs pt/ot speech evaluation. will f/u cta head and neck demonstrates evolving bioccipital and right frontal infarcts Neurology recommends one week( 5days from now) followup ct head for any hemorragic conversion and if no contraindication to initiate Coumadin. and f/u CTA or MRA of [place] in 1-2 weeks to assess for aneurysm. Presented with Acute respiratory failure, hypoxic and hypercapnic.-improved. Secondary to copd and chf. tapering steroids.. TO Cont nightly BIPAP and PRN during the day as needed. Cont scheduled bronchodilator therapy which is reduced for tachycardia .Pt/ot. Awaiting placement. Needs pulmonary followup. 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 He is not a candidate for LVRS 2/2 his low FEV1 of <20%.f/u as out patient. Still having jourdan sputum which is improving . Seen by pulmonary again on 04/05/17. continue to monitor. stable Acute systolic heart failure seen after hypoxic event with elevated troponin. Was treated initially with heparin drip. Asymptomatic currently. Latest TTE shows an improved EF. Cardiology added Toprol XL. Lasix was stopped 04/01 and held until he becomes more euvolemic as the diuresis was 40 IV q8hrs for several days and he has a metabolic alkalosis related to this. on ASA.Restarted home diuretics . Will monitor. RLL pneumonia-completed a course of abx (Azithro and Ceftriaxone) The patient will need a 4-6 weeks follow-up xray as outpatient. f/u cxr -improving PAF-not anticoagulated, continues on diltiazem.Plan to start on Coumadin if repeat ct head in in a week shows no hemorrhagic conversion soon.cardiology on board. Dysphagia-seen by speech s/p video swallow . Tolerating mechanical soft diet. Ambulatory dysfunction 2/2 deconditioning from prolonged hospitalization and ICU stay. cont PT/OT efforts. plan for rehab CHASITY-creatinine went from 1.4 to 1.6 likely related to aggressive diuresis and 1.1 today. Resolved Ureteral calculus-7mm obstructing calculus present in distal right ureter noted on CT 03/23 and seen again on repeat KUB today. Urology is following and considered stent, however, he has clinically improved and is not reporting any pain. Awaiting resolution of CHASITY and Uro would like pt to be optimized from a cardiopulmonary standpoint more before undergoing any procedure ideally. f/u with urology on discharge. repeat cx no growth. Anemia-likely multifactorial related to dilution, acute blood loss 2/2 daily phlebotomy and anemia of chronic disease. No indication for transfusion at this time. Tobacco use-encouraged to quit smoking. This is imperative at this point. Thrombocytopenia.will f/u labs.102 today DVT PROPHYLAXIS scds hep sub q DISPOSITION Monitor in tele pt/ot social service for d/c planning Code status Full as per my discussion with patient Vital Signs: Date Time Temp Pulse Resp B/P (MAP) Pulse Ox O2 Delivery O2 Flow Rate FiO2 12/25/17 15:41 37.0 106 23 125/66 (85) 92 Nasal Cannula 2.0 04/09/17 14:02 112 04/09/17 12:24 36.6 117 18 134/65 (88) 90 Nasal Cannula 04/09/17 12:00 Nasal Cannula 2.0 04/09/17 08:00 Nasal Cannula 2.0 04/09/17 07:59 36.9 99 16 93/45 (61) 97 Room Air 2.0 04/09/17 07:06 92 16 98 Nasal Cannula 2.0 04/09/17 04:00 36.8 90 20 122/65 (84) 98 Nasal Cannula 2.0 04/09/17 04:00 Nasal Cannula 2.0 04/09/17 02:19 88 20 98 Nasal Cannula 2.0 04/09/17 00:01 36.5 90 26 116/59 (78) 97 Nasal Cannula 2.0 04/08/17 23:59 Nasal Cannula 2.0 04/08/17 20:00 Nasal Cannula 2.0 04/08/17 19:35 37.4 113 24 131/68 (89) 95 Nasal Cannula 2.0 04/08/17 18:55 107 20 97 Nasal Cannula 2.0 Lab Results: Results Past 24 Hours Test 04/08/17 20:32 04/09/17 05:55 04/09/17 06:37 04/09/17 10:59 Range/Units Bedside Glucose 146 91 63 70-99 mg/dl White Blood Count 11.39 4.8-10.8 K/uL Red Blood Count 2.60 4.7-6.1 M/uL Hemoglobin 8.4 14.0-18.0 g/dL Hematocrit 25.9 42-52 % Mean Corpuscular Volume 99.6 80-100 fL Mean Corpuscular Hemoglobin 32.3 25-34 pg Mean Corpuscular Hemoglobin Concent 32.4 32-36 g/dl Platelet Count 102 130-400 K/uL Mean Platelet Volume 10.7 7.4-10.4 fL Neutrophils (%) (Auto) 87.8 % Lymphocytes (%) (Auto) 5.5 % Monocytes (%) (Auto) 6.0 % Eosinophils (%) (Auto) 0.3 % Basophils (%) (Auto) 0.0 % Neutrophils # (Auto) 10.01 1.4-6.5 K/uL Lymphocytes # (Auto) 0.63 1.2-3.4 K/uL Monocytes # (Auto) 0.68 0.11-0.59 K/uL Eosinophils # (Auto) 0.03 0-0.5 K/uL Basophils # (Auto) 0.00 0-0.2 K/uL RDW Standard Deviation 53.2 36.4-46.3 fL RDW Coefficient of Variation 14.7 11.5-14.5 % Immature Granulocyte % (Auto) 0.4 % Immature Granulocyte # (Auto) 0.04 0.00-0.02 K/uL Red Blood Cell Morphology Unremarkable Sodium Level 139 136-145 mmol/L Potassium Level 4.1 3.5-5.1 mmol/L Chloride Level 105 98-107 mmol/L Carbon Dioxide Level 30 21-32 mmol/L Anion Gap 4.0 3-11 mmol/L Blood Urea Nitrogen 35 7-18 mg/dl Creatinine 1.35 0.60-1.40 mg/dl Est Creatinine Clear Calc Drug Dose 42.1 ml/min Estimated GFR () 59.9 Estimated GFR (Non- 51.7 BUN/Creatinine Ratio 25.8 10-20 Random Glucose 94 70-99 mg/dl Calcium Level 8.1 8.5-10.1 mg/dl Magnesium Level 2.3 1.8-2.4 mg/dl Test 04/09/17 11:18 04/09/17 11:39 04/09/17 12:03 04/09/17 15:54 Range/Units Bedside Glucose 49 152 70-99 mg/dl Troponin I 0.125 0.128 0-0.045 ng/ml Test 04/09/17 16:03 Range/Units Bedside Glucose 193 70-99 mg/dl
[2017-04-10] VITALS (11 sets, daily range): BP systolic 98–132; BP diastolic 44–65; PULSE 94–117; TEMP 36.6–37.6; O2SAT 90–99
[2017-04-10] MEDS: HEPARIN SOD 5000 UNIT/0.5 ML CARP SQ SCH ×3 (05:52→21:20)
[2017-04-10 06:30] LABS: HEMATOCRIT 25.3 % (42-52); HEMOGLOBIN 8.3 g/dL (14.0-18.0); MEAN CELL VOLUME 99.2 fL (80-100); MEAN CORPUSCULAR HEMOGLOBIN 32.5 pg (25-34); MEAN CORPUSCULAR HGB CONC 32.8 g/dl (32-36); RED CELL DISTRIBUTION WIDTH CV 14.7 % (11.5-14.5); RED CELL DISTRIBUTION WIDTH SD 52.5 fL (36.4-46.3); WHITE BLOOD COUNT 12.27 K/uL (4.8-10.8)
[2017-04-10 06:58] LABS: CALCIUM 8.1 mg/dl (8.5-10.1); CREATININE 1.19 mg/dl (0.60-1.40)
[2017-04-10] MEDS: LEVALBUTEROL 1.25MG/0.5ML NEB INH SCH ×2 (07:04→19:11)
[2017-04-10] MEDS: IPRATROPIUM BROMIDE NEB SOLN 0.02% 2.5 ML VIAL INH SCH ×2 (07:04→19:11)
[2017-04-10 07:06] LABS: MEAN PLATELET VOLUME 10.9 fL (7.4-10.4); PLATELET COUNT 97 K/uL (130-400)
[2017-04-10 07:07] LABS: EOS % 0.2 %; EOS ABS # 0.03 K/uL (0-0.5); IG# 0.04 K/uL (0.00-0.02); LYMPH % 4.2 %; LYMPH ABS # 0.52 K/uL (1.2-3.4); MONO % 5.1 %; MONO ABS # 0.63 K/uL (0.11-0.59); NEUT % 90.2 %; NEUT ABS # 11.05 K/uL (1.4-6.5)
[2017-04-10] MEDS: BOOST VANILLA PO SCH ×2 (07:30→16:48)
[2017-04-10] MEDS: INSULIN HUMAN REGULAR SC SCH ×4 (07:45→21:18)
--- NOTE | 2017-04-10 08:29 | Progress Note ---
Progress Note Date of Service Apr 10, 2017. Progress Note ID Consult Dictated #[id number] A/P: 1. + sputum culture - aspergillus -Suspect colonization, pulm clinically improving -Would not treat -thank you
--- NOTE | 2017-04-10 09:06 | INFECT. DISEASE CONSULTATION ---
DATE OF CONSULTATION: 04/10/2017 HISTORY OF PRESENT ILLNESS: This is a 71-year-old gentleman who was admitted to the hospital with worsening shortness of breath. He has a history of severe COPD. He did have imaging on the which showed severe emphysema. His most recent chest x-ray was on the and this did show improved changes. He did receive a course of antibiotics for community-acquired pneumonia. It appears that he was on ceftriaxone and azithromycin from the through the . He has had a persistent mild leukocytosis but has been on prednisone. His white count today is 12. He had a one-time temperature elevation on the at 37.7 but has otherwise been afebrile. Today on my examination he states he is feeling significantly better. He is on 2 liters nasal cannula. He has mild cough, but states this is chronic. He denies any chest pain. He has no nausea, vomiting, diarrhea. His remaining review of systems are unremarkable. On the , sputum culture was obtained and this grew rare Aspergillus. For this reason, infectious diseases was consulted. He did have blood cultures done on the which are negative. PAST MEDICAL HISTORY: Diverticulosis, emphysema, chronic home oxygen, hypertension and chronic kidney disease. PAST SURGICAL HISTORY: Unremarkable. ALLERGIES: LACTOSE. FAMILY HISTORY: Noncontributory. SOCIAL HISTORY: Significant for history of tobacco use. He denies any drug or alcohol use. CURRENT MEDICATIONS: Prednisone, Atrovent, Xopenex, Lopressor, Ecotrin, heparin, Plavix, magnesium, Lasix, Diamox, Xanax, lactulose and Tylenol. PHYSICAL EXAMINATION: VITAL SIGNS: He is afebrile, pulse 94, respiratory rate 16, blood pressure 118/64, oxygen saturation 92% on 1 liter and 98% on 2 liters. GENERAL: He is awake, alert and oriented. He is in no acute distress. HEENT: Mucous membranes are dry. HEART: Regular. LUNGS: Decreased breath sounds throughout. ABDOMEN: Soft, nontender, nondistended. There is no edema. SKIN: Without rash but there are multiple ecchymotic areas on his upper extremities. LABORATORY STUDIES: CBC today reveals a white blood cell count of 12.2, hemoglobin 8.3 and platelets are 97. Chemistry panel reveals a sodium of 137, potassium 4.0, chloride 105, bicarbonate 28, BUN 35, creatinine 1.1, glucose is 124. Urinalysis is unremarkable. On 04/07 blood cultures are negative, 04/06/2017 urine culture is negative, 04/05/2017 sputum cultures rare Aspergillus, CTA was done yesterday of the head which showed evolving acute to subacute infarcts and he reportedly had hypoxic episode. ASSESSMENT AND PLAN: Positive sputum culture. I suspect that this represents oral colonization and not indicative of disease in rare form with decreasing oxygen requirements. The patient is afebrile. He does have a mild leukocytosis but has also been on prednisone which may be contributing to this. I would not offer therapy for Aspergillus at this time as there is concern for invasive pulmonary infection. A bronchoscopy could be done, but I do not have any clinical evidence to support this as he is not having worsening cough or hemoptysis. Thank you for this consultation.
[2017-04-10] MEDS: FUROSEMIDE 20 MG TAB PO SCH (09:16)
[2017-04-10] MEDS: CLOPIDOGREL BISULFATE 75 MG TAB PO SCH (09:16)
[2017-04-10] MEDS: ASPIRIN 81 MG ECTAB PO SCH (09:16)
[2017-04-10] MEDS: MAGNESIUM OXIDE 400 MG TAB PO SCH (09:16)
[2017-04-10] MEDS: AcetaZOLAMIDE 250 MG TAB PO SCH ×2 (09:17→16:50)
[2017-04-10] MEDS: METOPROLOL TARTRATE 1 MG/ML VIAL IV PRN (10:44)
--- NOTE | 2017-04-10 11:35 | Progress Note ---
Medicine Progress Note Date & Time of Visit: Apr 10, 2017 at 11:11. Subjective 71 yo M admitted with COPD exacerbation from PCP office, suffered a hypoxic event after noncompliance with BIPAP on 03/25 and developed ?seizure activity. He was treated with Ativan and subsequently intubated in the ICU. He remained vented from 03/25- and was successfully extubated. He was transferred to [facility] 03/31 and is doing well on nasal canula w BIPAP at night. He was noted to have worsening L -sided weakness and a repeat head CT confirmed acute infarct in bilateral occipital lobes and R frontal lobe. Neuro was consulted and added DAPT therapy and made additional recs for follow-up. He still has some LUE weakness but LLE weakness is improved/resolved. However, he is not able to stand because of profound generalized weakness in the setting of his prolonged hospitalization. He denies any SOB, chest pain, or any other pain anywhere. He denies any issues with swallowing and denies that food gets stuck in his esophagus on the modified diet currently. He is asking when he can go home. We discussed that we will need to stabilize his heart on PO meds prior to discharge and that he will be going to a short term rehab situation as a transition to home, which he said would be fine with him. ID addressed his + aspegillus in sputum; appreciate their input. Objective Last 8 Hrs Date Time Temp Pulse Resp B/P (MAP) Pulse Ox O2 Delivery O2 Flow Rate FiO2 04/10/17 10:50 103 98/53 (68) 04/10/17 10:44 129 143/66 04/10/17 08:00 36.6 94 18 101/59 (73) 97 04/10/17 07:05 94 16 92 Nasal Cannula 1.0 04/10/17 04:05 36.9 95 23 118/64 (82) 98 Nasal Cannula 2.0 04/10/17 04:00 Nasal Cannula 3.0 Physical Exam: GEN: thin, elderly, frail, alert and appropriate. Appears generally weak. HEENT: NC/AT, pupils are equal and round bilaterally, normal sclerae, MMM, nasal canula in place and no respiratory distress. CARDIO:tachy rate, S1/2 heard without m/g/r,+ radial pulses bilaterally LUNGS: clear lungs to auscultation bilaterally ABD: soft, non-distended, no guarding. 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 SKIN: warm and dry, multiple areas of ecchymosis from multiple phlebotomy attempts Laboratory Results: 04/10/17 05:56 Red Blood Count 2.55, Mean Corpuscular Volume 99.2, Mean Corpuscular Hemoglobin 32.5, Mean Corpuscular Hemoglobin Concent 32.8, Mean Platelet Volume 10.9, Neutrophils (%) (Auto) 90.2, Lymphocytes (%) (Auto) 4.2, Monocytes (%) (Auto) 5.1, Eosinophils (%) (Auto) 0.2, Basophils (%) (Auto) 0.0, Neutrophils # (Auto) 11.05, Lymphocytes # (Auto) 0.52, Monocytes # (Auto) 0.63, Eosinophils # (Auto) 0.03, Basophils # (Auto) 0.00 04/10/17 05:56 Test 03/18/17 00:00 03/18/17 17:25 03/18/17 20:14 03/19/17 00:53 Influenza Type A (RT-PCR) Neg for Influ A (NEG) Influenza Type A Antigen Neg for Influ A (NEG) Influenza Type B Antigen Neg for Influ B (NEG) Influenza Type B (RT-PCR) Neg for Influ B (NEG) Giant Platelets 1+ Polychromasia 1+ Peripheral Blood Smear Path Consult Lactic Acid Level 0.6 mmol/L (0.4-2.0) Absolute Reticulocyte Count 0.06 10^6/uL (0.02-0.10) Percent Reticulocyte Count 2.6 % (0.5-2.0) Ferritin 178.5 ng/ml (8.0-388.0) Vitamin B12 Level 559 pg/mL (211-911) Folate 10.95 ng/mL (>5.38) Test 03/20/17 05:43 03/22/17 05:14 03/23/17 07:22 03/23/17 10:47 Basophilic Stippling OCCASIONAL Iron Level 36 mcg/dl (35-175) Total Iron Binding Capacity 182 mcg/dl (250-450) Transferrin 123 mg/dl (200-360) Transferrin % Saturation 21 % (20-50) Hypochromasia PRESENT Prostate Specific Antigen 1.680 ng/ml (0.000-4.000) Urine Color YELLOW Urine Appearance CLEAR (CLEAR) Urine pH 7.5 (4.5-7.5) Urine Specific [place] 1.018 (1.000-1.030) Urine Protein NEG (NEG) Urine Glucose (UA) NEG (NEG) Urine Ketones NEG (NEG) Urine Occult Blood NEG (NEG) Urine Nitrite NEG (NEG) Urine Bilirubin NEG (NEG) Urine Urobilinogen NEG (NEG) Urine Leukocyte Esterase TRACE (NEG) Urine WBC (Auto) 1-5 /hpf (0-5) Urine RBC (Auto) 0-4 /hpf (0-4) Urine Hyaline Casts (Auto) 1-5 /lpf (0-5) Urine Epithelial Cells (Auto) >30 /lpf (0-5) Urine Bacteria (Auto) NEG (NEG) Urine Mucus PRESENT (NONE PRSENT) Urine Yeast (Auto) BUDDING (NONE PRSENT) Test 03/24/17 10:25 03/25/17 04:53 03/25/17 16:07 03/28/17 05:11 Stool Occult Blood NEGATIVE (NEGATIVE) Direct Bilirubin 0.1 mg/dl (0-0.2) Prothrombin Time 10.3 SECONDS (9.0-12.0) Prothromb Time International Ratio 1.0 (0.9-1.1) Nucleated RBC Absolute Count (auto) 0.02 K/uL (0-0) Nucleated Red Blood Cells % 0.5 % Large Platelets 1+ Tear Drop Cells 1+ Test 03/28/17 05:16 03/31/17 05:15 04/01/17 05:30 04/02/17 05:22 Blood Gas Sample Site L Radial Bedside Blood Gas pH (LAB) 7.40 (7.35-7.45) Bedside Blood Gas pCO2 (LAB) 47 mmHg (35-46) Bedside Blood Gas pO2 (LAB) 74 mmHg (80-95) Bedside Blood Gas HCO3 (LAB) 29 meq/L (19-24) Bedside Blood Gas Total CO2 30 mEq/l (24-31) Bedside Blood Gas Base Excess (LAB) 4.0 meq/L (-9-1.8) Bedside Blood Gas O2 Saturation 95.0 % (90-95) Oxygen Delivery Device Ventilator Bedside Oxygen Rate (breaths/min) 12 Blood Gas Minute Ventilation 7.1 Bedside FiO2 30 % Blood Gas Tidal Volume 550 Blood Gas PEEP 5 Activated Partial Thromboplast Time 26.2 SECONDS (21.0-31.0) Partial Thromboplastin Ratio 1.0 Estimated Average Glucose 91 mg/dl Hemoglobin A1c 4.8 % (4.5-5.6) Phosphorus Level 2.2 mg/dl (2.5-4.9) Prealbumin 22.4 mg/dl (20-40) Test 04/07/17 10:41 04/07/17 10:42 04/07/17 11:22 04/09/17 05:55 Total Bilirubin 0.8 mg/dl (0.2-1) Aspartate Amino Transf (AST/SGOT) 26 U/L (15-37) Alanine Aminotransferase (ALT/SGPT) 76 U/L (12-78) Alkaline Phosphatase 64 U/L (45-117) Total Protein 6.3 gm/dl (6.4-8.2) Albumin 3.3 gm/dl (3.4-5.0) Globulin 3.0 gm/dl (2.5-4.0) Albumin/Globulin Ratio 1.1 (0.9-2) Toxic Granulation 1+ Stomatocytes 1+ Arterial Blood pH 7.35 (7.35-7.45) Arterial Blood Partial Pressure CO2 61 mmHg (35-46) Arterial Blood Partial Pressure O2 113 mm/Hg (80-95) Arterial Blood HCO3 33 mmol/L (19-24) Arterial Blood Oxygen Saturation 97.7 % (90-95) Arterial Blood Base Excess 6.8 mEq/L (-9-1.8) Arterial Blood Gas Delivery 3 L Howard Test POS (POS) Red Blood Cell Morphology Unremarkable Test 04/09/17 15:54 04/10/17 05:56 04/10/17 06:16 Troponin I 0.128 ng/ml (0-0.045) White Blood Count 12.27 K/uL (4.8-10.8) Red Blood Count 2.55 M/uL (4.7-6.1) Hemoglobin 8.3 g/dL (14.0-18.0) Hematocrit 25.3 % (42-52) Mean Corpuscular Volume 99.2 fL (80-100) Mean Corpuscular Hemoglobin 32.5 pg (25-34) Mean Corpuscular Hemoglobin Concent 32.8 g/dl (32-36) Platelet Count 97 K/uL (130-400) Mean Platelet Volume 10.9 fL (7.4-10.4) Neutrophils (%) (Auto) 90.2 % Lymphocytes (%) (Auto) 4.2 % Monocytes (%) (Auto) 5.1 % Eosinophils (%) (Auto) 0.2 % Basophils (%) (Auto) 0.0 % Neutrophils # (Auto) 11.05 K/uL (1.4-6.5) Lymphocytes # (Auto) 0.52 K/uL (1.2-3.4) Monocytes # (Auto) 0.63 K/uL (0.11-0.59) Eosinophils # (Auto) 0.03 K/uL (0-0.5) Basophils # (Auto) 0.00 K/uL (0-0.2) RDW Standard Deviation 52.5 fL (36.4-46.3) RDW Coefficient of Variation 14.7 % (11.5-14.5) Immature Granulocyte % (Auto) 0.3 % Immature Granulocyte # (Auto) 0.04 K/uL (0.00-0.02) Platelet Estimate DECREASED Anisocytosis PRESENT Anion Gap 4.0 mmol/L (3-11) Est Creatinine Clear Calc Drug Dose 44.6 ml/min Estimated GFR () 69.8 Estimated GFR (Non- 60.2 BUN/Creatinine Ratio 29.1 (10-20) Calcium Level 8.1 mg/dl (8.5-10.1) Magnesium Level 2.3 mg/dl (1.8-2.4) Bedside Glucose 124 mg/dl (70-99) Date/Time Source Procedure Growth Status 04/07/17 11:13 Blood Blood Culture - Preliminary NO GROWTH TO DATE. Resulted 03/25/17 09:20 Nasal MRSA DNA Surveillance Screen - Final Specimen Negative for MRSA by DNA Probe Complete 04/05/17 13:50 Sputum Expectorated Sputum Gram Stain - Final Complete 04/05/17 13:50 Sputum Culture - Final Aspergillus Fumigatus Complete 04/06/17 19:10 Urine , Clean Catch Urine Culture - Final NO GROWTH - LESS THAN 1,000 COLONIES/ML Complete Last 24 Hours Test 04/09/17 11:18 04/09/17 11:39 04/09/17 12:03 04/09/17 15:54 Bedside Glucose 49 mg/dl 152 mg/dl Troponin I 0.125 ng/ml 0.128 ng/ml Test 04/09/17 16:03 04/09/17 18:35 04/09/17 20:09 04/10/17 05:56 Bedside Glucose 193 mg/dl 261 mg/dl 265 mg/dl White Blood Count 12.27 K/uL Red Blood Count 2.55 M/uL Hemoglobin 8.3 g/dL Hematocrit 25.3 % Mean Corpuscular Volume 99.2 fL Mean Corpuscular Hemoglobin 32.5 pg Mean Corpuscular Hemoglobin Concent 32.8 g/dl Platelet Count 97 K/uL Mean Platelet Volume 10.9 fL Neutrophils (%) (Auto) 90.2 % Lymphocytes (%) (Auto) 4.2 % Monocytes (%) (Auto) 5.1 % Eosinophils (%) (Auto) 0.2 % Basophils (%) (Auto) 0.0 % Neutrophils # (Auto) 11.05 K/uL Lymphocytes # (Auto) 0.52 K/uL Monocytes # (Auto) 0.63 K/uL Eosinophils # (Auto) 0.03 K/uL Basophils # (Auto) 0.00 K/uL RDW Standard Deviation 52.5 fL RDW Coefficient of Variation 14.7 % Immature Granulocyte % (Auto) 0.3 % Immature Granulocyte # (Auto) 0.04 K/uL Platelet Estimate DECREASED Anisocytosis PRESENT Sodium Level 137 mmol/L Potassium Level 4.0 mmol/L Chloride Level 105 mmol/L Carbon Dioxide Level 28 mmol/L Anion Gap 4.0 mmol/L Blood Urea Nitrogen 35 mg/dl Creatinine 1.19 mg/dl Est Creatinine Clear Calc Drug Dose 44.6 ml/min Estimated GFR () 69.8 Estimated GFR (Non- 60.2 BUN/Creatinine Ratio 29.1 Random Glucose 115 mg/dl Calcium Level 8.1 mg/dl Magnesium Level 2.3 mg/dl Test 04/10/17 06:16 Bedside Glucose 124 mg/dl Assessment & Plan 71 yo M admitted with COPD exacerbation from PCP office, suffered a hypoxic event after noncompliance with BIPAP on 03/25 and developed ?seizure activity. He was treated with Ativan and subsequently intubated in the ICU. He remained vented from 03/25- and was successfully extubated. He was transferred to [facility] 03/31 and is doing well on nasal canula w BIPAP at night. He was noted to have worsening L -sided weakness and a repeat head CT confirmed acute infarct in bilateral occipital lobes and R frontal lobe. Neuro was consulted and added DAPT therapy and made additional recs for follow-up. He still has some LUE weakness but LLE weakness is improved/resolved. However, he is not able to stand because of profound generalized weakness in the setting of his prolonged hospitalization. He denies any SOB, chest pain, or any other pain anywhere. He denies any issues with swallowing and denies that food gets stuck in his esophagus on the modified diet currently. He is asking when he can go home. We discussed that we will need to stabilize his heart on PO meds prior to discharge and that he will be going to a short term rehab situation as a transition to home, which he said would be fine with him. ID addressed his + aspergillus in sputum; appreciate their input. 1. Acute respiratory failure, hypoxic and hypercapnic.-improved. Prednisone taper per pulm. Cont nightly BIPAP and PRN during the day as needed. Cont bronchodilator therapy. 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 2. COPD-dependent on home oxygen. Continues to actively smoke per family. He is not a candidate for LVRS 2/2 his low FEV1 of <20%. 3. Acute stroke-L sided weakness, Neuro following. Cont DAPT w repeat CT on Sunday. 4. Acute systolic heart failure seen after hypoxic event with elevated troponins. Was treated medically with heparin drip. Denies any chest pain today. Latest TTE shows an improved EF. Was on Toprol XL but this was stopped by Cards yesterday morning. He continues to do well on home diuretics including acetazolamide 250mg PO BID and Lasix 20mg PO daily. He appears to be euvolemic on exam today. Cont ASA and Plavix 5. pneumonia-completed a course of abx (Azithro and Ceftriaxone) The patient will need a 4-6 weeks follow-up xray as outpatient. Some residual cough present but no worsening. 6. PAF-questionable diagnosis of atrial fibrillation at this time. will discuss with Cards regarding the need for anticoagulation. If we are to pursue , will be in one week after repeat head CT reveals no hemorrhagic conversion of stroke per Neuro. HR is currently uncontrolled with Toprol stopped yesterday. IV Lopressor PRN and await Cards recs for PO medications for improved heart rate control. 7. Dysphagia-Video swallow study was completed earlier during the hospitalization revealing no evidence of aspiration. Recommendations were made by [employer] including slippery diet, GERD precautions and aspiration precautions. A Barium swallow study was also recommended to better assess esophageal dysfunction. We may pursue this when he is able to stand upright for the required length of time for the test. Currently too weak to stand and doing well on current diet. 8. Ambulatory dysfunction 2/2 deconditioning from prolonged hospitalization and ICU stay. cont PT/OT efforts. He will likely need to transition through rehab on his way home. Also, pt lives at home alone. Discussed case with Jenae in Case Management this morning who will start the process to transition him to rehab. 9. CHASITY-resolved. 10. Ureteral calculus-7mm obstructing calculus present in distal right ureter noted on CT 03/23 and seen again on repeat KUB. Urology was consulted and considered stent, however, they would like pt to be optimized from a cardiopulmonary standpoint more before undergoing any procedure ideally. Pt is having no LUTS or flank pain currently. For now will have him follow-up with Urology as outpatient. 11. Anemia-likely multifactorial related to dilution, acute blood loss 2/2 daily phlebotomy and anemia of chronic disease. No indication for transfusion at this time. 12. Tobacco use-encouraged to quit smoking. This is imperative at this point. 13. Thrombocytopenia. 14. Anemia-chronic and at baseline. Likely multifactorial in setting of frequent blood draws and multiple chronic diseases. Cont to follow-up as outpatient once discharged. DVT proph-heparin Full Code Dispo-hope to transition patient to SNF facility in 1-2 days pending heart rate control. Pamela Moreno DO [facility] Hospitalist Continued [facility] stay due to: multiple IV medications needed, home environment unsafe for pt, other (acute care continues) Discharge planning: uncertain Consultants: Neuro-Dr. Denzel Blas Procedures: . Current Inpatient Medications: Current Inpatient Medications Medications (Trade) Dose Ordered Sig/Rosemary Route Start Time Stop Time Status Last Admin Dose Admin Acetaminophen (Tylenol Tab) 650 mg Q4H PRN PO 03/18/17 20:30 04/17/17 20:29 04/06/17 20:23 650 MG Miscellaneous Information (Order Awaiting Action) 1 ea QS N/A 03/19/17 00:00 04/18/17 00:00 04/03/17 16:00 1 EA Aspirin (Aspirin Chew) 81 mg DAILY PO 03/28/17 09:00 04/27/17 08:59 Future Hold 04/04/17 07:59 81 MG Lactulose (Chronulac Syrup) 30 gm Q6 PRN PO 03/30/17 08:30 04/29/17 08:29 04/07/17 09:30 30 GM Insulin Human Regular (novoLIN-R) SLIDING SCALE ACHS SC 03/31/17 11:00 04/30/17 10:59 04/09/17 22:28 5 UNITS Ipratropium [place] (Atrovent 0.02% 0.5MG/2.5ML Neb) 0.5 mg Q4H PRN INH 04/01/17 07:30 05/01/17 07:29 04/04/17 10:45 0.5 MG Levalbuterol (Xopenex 1.25MG/ 0.5ML Neb) 1.25 mg Q4H PRN INH 04/01/17 07:30 05/01/17 07:29 04/04/17 10:45 1.25 MG Alprazolam (Xanax Tab) 1 mg Q8H PRN PO 04/01/17 19:00 04/27/17 18:59 Acetazolamide (Diamox Tab) 250 mg BID17 PO 04/04/17 20:00 05/04/17 19:59 04/10/17 09:17 250 MG Furosemide (Lasix Tab) 20 mg DAILY PO 04/05/17 08:00 05/05/17 07:59 04/10/17 09:16 20 MG Magnesium Oxide (Mag-Ox Tab) 400 mg QAM PO 04/06/17 08:00 05/06/17 07:59 04/10/17 09:16 400 MG Enteral Nutritional Formula (Boost) 1 can BIDM PO 04/06/17 17:00 05/06/17 16:59 04/10/17 07:30 1 CAN Heparin Sodium (Porcine) (Heparin Sq 5000 Unit/0.5ml) 5,000 unit Q8 SQ 04/07/17 14:00 05/07/17 13:59 04/10/17 05:52 5,000 UNIT Aspirin (Ecotrin Tab) 81 mg QAM PO 04/08/17 08:00 05/08/17 07:59 04/10/17 09:16 81 MG Clopidogrel Bisulfate (plAVix TAB) 75 mg QAM PO 04/07/17 13:00 05/07/17 12:59 04/10/17 09:16 75 MG Ioversol (Optiray 320) 100 ml UD PRN IV 04/09/17 09:15 04/13/17 09:14 Prednisone (PredniSONE TAB) 30 mg Taper DAILY PO 04/10/17 09:00 04/19/17 08:59 04/10/17 09:17 30 MG Metoprolol Tartrate (Lopressor Iv) 2.5 mg Q6 PRN IV 04/09/17 10:15 05/09/17 10:14 04/10/17 10:44 2.5 MG Ipratropium [place] (Atrovent 0.02% 0.5MG/2.5ML Neb) 0.5 mg BIDR INH 04/09/17 20:00 05/01/17 19:59 04/10/17 07:04 0.5 MG Levalbuterol (Xopenex 1.25MG/ 0.5ML Neb) 1.25 mg BIDR INH 04/09/17 20:00 05/01/17 19:59 04/10/17 07:04 1.25 MG
--- NOTE | 2017-04-10 13:50 | CARDIOLOGY PROGRESS NOTE ---
DATE: 04/10/2017 DATE: 04/10/2017 FOLLOW-UP VISIT SUBJECTIVE: The patient is a 71-year-old who has had a prolonged hospital stay. He was originally admitted with respiratory failure due to COPD. He was convalescing on the floor and suddenly had left-sided weakness. His brain scans indicate new bilateral occipital lobe infarcts and a right frontal lobe infarct. He has not regained much in regard to his deficits. On the telemetry, he has not had any atrial arrhythmias but he is having frequent PVCs with couplets as well as short runs of nonsustained V-tach lasting 2-3 beats. The patient has an ischemic cardiomyopathy with an estimated left ventricular ejection fraction 30-35%. OBJECTIVE: GENERAL: He is alert. He is sitting in a chair. He still has left sided neglect. VITAL SIGNS: Blood pressure is 117/54, pulse is regular at 100 beats per minute. He is in a sinus mechanism. HEAD, EYES, EARS, NOSE, AND THROAT: He is normocephalic. Mucous membranes are moist. NECK: The neck veins are flat. Carotids have good upstrokes bilaterally without bruits. Thyroid is nonpalpable. RESPIRATORY: Breath sounds equal bilaterally and clear to auscultation. CARDIOVASCULAR: Heart has a regular rhythm. Normal S1, S2. No S3, S4. No cardiac rubs or murmurs. GASTROINTESTINAL: Abdomen is soft, nontender without organomegaly. EXTREMITIES: Free of edema, digit clubbing, or cyanosis. NEUROLOGIC: The patient has left-sided neglect. SKIN: Warm to touch. LYMPH NODES: Negative to palpation. LABORATORY DATA: Potassium is 4.0. Creatinine is 1.19, hemoglobin is 8.3. IMPRESSION: 1. Multiple cerebral infarcts followed by neurology. 2. Chronic obstructive lung disease. 3. Ischemic cardiomyopathy. RECOMMENDATIONS: I believe the patient may benefit from long-term anticoagulation due to his multiple infarcts. When we start full anticoagulation is up to neurology. In regard to his arrhythmia, he has had no atrial arrhythmias but is having frequent ventricular ectopy. He does not tolerate beta blockers because of low blood pressure and neurology is concerned about additional strokes if we do not maintain an adequate blood pressure. Even though he has COPD, I think his best option is to be started on amiodarone and I will start that today. At this point, I think it is just support and physical therapy for this patient.
--- NOTE | 2017-04-10 16:16 | PROGRESS NOTE ---
DATE: 04/10/2017 SUBJECTIVE: I saw Meek today. When I last saw him, we had signed off the case as, at that point, there was a question of whether he was going to remain a do not resuscitate because of his severe respiratory failure. He turned things around but still has ischemic cardiomyopathy may or may not be an intermittent atrial fibrillation and 3 days ago, now had an acute onset of left-sided weakness and visual disturbance and was found on CAT scan to have bilateral occipital infarcts and a right frontal infarction likely of recent origin. Prior imaging studies have shown what I felt was a post-anoxic ischemic enhancement of the posterior leung matter and I thought was due to some laminar necrosis. 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 EEGs did not show anything focal or generalized encephalopathy and no potentially epileptogenic activity was seen. He was on heparin under the clinical suspicion of a pulmonary embolism, but apparently this was stopped and the current presumptive embolic events occurred off anticoagulation other than antiplatelet treatment, which is now in dual antiplatelet mode with aspirin and Plavix. He had been seen by cardiology. He does have a markedly diminished ejection fraction. Dr. Verma would like to start him on some anticoagulation and is starting him on amiodarone for prevention of atrial fibrillation. SUBJECTIVE: At this point, his exam is improved from yesterday. He is awake, alert, superficially oriented at least to place, knew yesterday was Get, but is chaotically organized beyond that and thinks today is New Year's day. He knows the year is at least in the 1999 and think it is 2019 and identifies the month as March. Beyond this, his mental status is of a pleasant confusion. He does have a pretty dense right homonymous hemianopsia, the left field cut is less evident today. He has neglect, right-sided visual stimuli and a left hemiparesis involving the arm and leg more than the face. There may be some clumsiness of the right hand as well, but he had this before, during his anoxic ischemic event. Whatever the case, we did review Dr. Cha's recommendations and agree that the presence of bioccipital infarcts does pose a risk for hemorrhagic transformation. I would do another CT scan on [place] and if this does not show any hemorrhagic issues at that point and I would go on to what I assume would be a Coumadin anticoagulation, as per Dr. Verma' note. If a novel anticoagulant is favored, perhaps cardiology will clarify this. Whatever the case, right now he is improving neurologically, I do not see any evidence for clinical deterioration in fact see evidence for improvement, likely reflective of some resolution of the edema and I think we will maintain the dual antiplatelet regimen until Sunday and hopefully by then with a negative CT for hemorrhagic transformation, he can be started on an anticoagulation protocol. I will check with him daily. JOSÉ MANUEL
[2017-04-10] MEDS: ACETAMINOPHEN 325 MG TAB PO PRN (18:13)
[2017-04-10] MEDS: AMIODARONE 200 MG TAB PO SCH (21:14)
[2017-04-11] VITALS (9 sets, daily range): BP systolic 107–128; BP diastolic 52–66; PULSE 81–115; TEMP 36.8–37.2; O2SAT 95–100
[2017-04-11] MEDS: HEPARIN SOD 5000 UNIT/0.5 ML CARP SQ SCH ×3 (06:14→21:00)
[2017-04-11 07:03] LABS: HEMOGLOBIN 7.9 g/dL (14.0-18.0); MEAN CELL VOLUME 99.6 fL (80-100); MEAN CORPUSCULAR HEMOGLOBIN 31.5 pg (25-34); MEAN CORPUSCULAR HGB CONC 31.6 g/dl (32-36); RED CELL DISTRIBUTION WIDTH CV 15.1 % (11.5-14.5); RED CELL DISTRIBUTION WIDTH SD 53.6 fL (36.4-46.3); WHITE BLOOD COUNT 11.07 K/uL (4.8-10.8)
[2017-04-11 07:07] LABS: MEAN PLATELET VOLUME 10.8 fL (7.4-10.4); PLATELET COUNT 90 K/uL (130-400)
[2017-04-11 07:27] LABS: EOS % 0.3 %; EOS ABS # 0.03 K/uL (0-0.5); LYMPH % 4.7 %; LYMPH ABS # 0.52 K/uL (1.2-3.4); MONO % 3.8 %; MONO ABS # 0.42 K/uL (0.11-0.59); NEUT % 90.8 %; NEUT ABS # 10.06 K/uL (1.4-6.5)
[2017-04-11 07:28] LABS: IG# 0.04 K/uL (0.00-0.02)
[2017-04-11] MEDS: BOOST VANILLA PO SCH ×2 (07:31→17:07)
[2017-04-11] MEDS: IPRATROPIUM BROMIDE NEB SOLN 0.02% 2.5 ML VIAL INH SCH ×2 (07:33→18:51)
[2017-04-11] MEDS: LEVALBUTEROL 1.25MG/0.5ML NEB INH SCH ×2 (07:34→18:51)
[2017-04-11] MEDS: INSULIN HUMAN REGULAR SC SCH ×4 (07:35→21:00)
[2017-04-11 07:37] LABS: CREATININE 1.21 mg/dl (0.60-1.40); POTASSIUM 4.2 mmol/L (3.5-5.1)
[2017-04-11] MEDS: MAGNESIUM OXIDE 400 MG TAB PO SCH (07:43)
[2017-04-11] MEDS: ASPIRIN 81 MG ECTAB PO SCH (07:43)
[2017-04-11] MEDS: AcetaZOLAMIDE 250 MG TAB PO SCH ×2 (07:43→17:08)
[2017-04-11] MEDS: AMIODARONE 200 MG TAB PO SCH ×2 (07:43→20:57)
[2017-04-11] MEDS: CLOPIDOGREL BISULFATE 75 MG TAB PO SCH (07:44)
[2017-04-11] MEDS: FUROSEMIDE 20 MG TAB PO SCH (07:44)
--- NOTE | 2017-04-11 13:15 | PROGRESS NOTE ---
DATE: 04/11/2017 FOLLOWUP VISIT SUBJECTIVE: The patient is a 71-year-old male patient who has had a prolonged hospital stay. He was originally admitted with respiratory failure due to COPD. More recently, he was convalescing on the floor and suddenly, had left-sided weakness. He was found to have new bilateral occipital lobe infarcts and the right frontal lobe infarct. Neurology's note is appreciated. Today, he is certainly more alert and sitting in a chair. Yesterday, I started him on amiodarone due to frequent ventricular ectopy and probable paroxysmal atrial fibrillation. He has an ischemic cardiomyopathy with an estimated left ventricular ejection fraction of 30%-35%, so I believe the amiodarone is a reasonable choice for him. He is tolerating this medication thus far. OBJECTIVE: GENERAL: He is alert and seems to be oriented today. VITAL SIGNS: Blood pressure is 110/60 and pulse is regular at 90 beats per minute. He is afebrile. He is currently in a sinus mechanism. HEENT: He is normocephalic. Pupils are equal and reactive to light. Extraocular muscles are intact bilaterally. NECK: The neck veins are flat. Carotids have good upstrokes bilaterally without bruits. Thyroid is nonpalpable. RESPIRATORY: Breath sounds equal bilaterally and clear to auscultation. CARDIOVASCULAR: Heart has a regular rhythm. Normal S1 and S2. No S3 or S4. No cardiac rubs or murmurs. GASTROINTESTINAL: Abdomen is soft and nontender without organomegaly. EXTREMITIES: Free of edema, digit clubbing, or cyanosis. NEUROLOGIC: Grossly intact. SKIN: Warm to touch. LYMPH NODES: Negative to palpation. LABORATORY DATA: Hemoglobin is 7.9. Potassium is 4.2 and creatinine is 1.21. IMPRESSION: 1. Multiple cerebral infarcts, suspicious for embolic events. 2. Ischemic cardiomyopathy. 3. Chronic obstructive lung disease. RECOMMENDATIONS: As outlined above, the patient was started on amiodarone yesterday. He is tolerating this medication and his ventricular ectopy seems to have diminished. 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
--- NOTE | 2017-04-11 16:27 | Progress Note ---
Medicine Progress Note Date & Time of Visit: Apr 11, 2017 at 13:03. Subjective 71 yo M admitted with COPD exacerbation from PCP office, suffered a hypoxic event after noncompliance with BIPAP on 03/25 and developed ?seizure activity. He was treated with Ativan and subsequently intubated in the ICU. He remained vented from 03/25- and was successfully extubated. He was transferred to [facility] 03/31 and is doing well on nasal canula w BIPAP at night. He was noted to have worsening L -sided weakness and a repeat head CT confirmed acute infarct in bilateral occipital lobes and R frontal lobe. Neuro was consulted and added DAPT therapy and made additional recs for follow-up. He still has some LUE weakness but LLE weakness is improved/resolved. Worked with PT today. He denies any SOB, chest pain, or any other pain anywhere. He denies any issues with swallowing and denies that food gets stuck in his esophagus on the modified diet currently. He was started on amio per Cards yesterday with improvement in heart rate overnight. Objective Last 8 Hrs Date Time Temp Pulse Resp B/P (MAP) Pulse Ox O2 Delivery O2 Flow Rate FiO2 04/11/17 12:35 36.8 111 18 113/56 (75) 96 04/11/17 08:00 Nasal Cannula 2.0 04/11/17 07:34 81 16 98 Nasal Cannula 2.0 04/11/17 07:25 36.8 91 24 107/52 (70) 100 Nasal Cannula 2.0 Physical Exam: GEN: thin, elderly, frail, alert and appropriate. Appears generally weak. HEENT: NC/AT, pupils are equal and round bilaterally, normal sclerae, MMM, nasal canula in place and no respiratory distress. CARDIO: reg rate, S1/2 heard without m/g/r,+ radial pulses bilaterally LUNGS: clear lungs to auscultation bilaterally ABD: soft, non-distended, no guarding. 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 SKIN: warm and dry, multiple areas of ecchymosis noted all down arms. Laboratory Results: 04/11/17 06:31 Red Blood Count 2.51, Mean Corpuscular Volume 99.6, Mean Corpuscular Hemoglobin 31.5, Mean Corpuscular Hemoglobin Concent 31.6, Mean Platelet Volume 10.8, Neutrophils (%) (Auto) 90.8, Lymphocytes (%) (Auto) 4.7, Monocytes (%) (Auto) 3.8, Eosinophils (%) (Auto) 0.3, Basophils (%) (Auto) 0.0, Neutrophils # (Auto) 10.06, Lymphocytes # (Auto) 0.52, Monocytes # (Auto) 0.42, Eosinophils # (Auto) 0.03, Basophils # (Auto) 0.00 04/11/17 06:31 Test 03/18/17 00:00 03/18/17 17:25 03/18/17 20:14 03/19/17 00:53 Influenza Type A (RT-PCR) Neg for Influ A (NEG) Influenza Type A Antigen Neg for Influ A (NEG) Influenza Type B Antigen Neg for Influ B (NEG) Influenza Type B (RT-PCR) Neg for Influ B (NEG) Giant Platelets 1+ Polychromasia 1+ Peripheral Blood Smear Path Consult Lactic Acid Level 0.6 mmol/L (0.4-2.0) Absolute Reticulocyte Count 0.06 10^6/uL (0.02-0.10) Percent Reticulocyte Count 2.6 % (0.5-2.0) Ferritin 178.5 ng/ml (8.0-388.0) Vitamin B12 Level 559 pg/mL (211-911) Folate 10.95 ng/mL (>5.38) Test 03/20/17 05:43 03/23/17 07:22 03/23/17 10:47 03/24/17 10:25 Basophilic Stippling OCCASIONAL Iron Level 36 mcg/dl (35-175) Total Iron Binding Capacity 182 mcg/dl (250-450) Transferrin 123 mg/dl (200-360) Transferrin % Saturation 21 % (20-50) Prostate Specific Antigen 1.680 ng/ml (0.000-4.000) Urine Color YELLOW Urine Appearance CLEAR (CLEAR) Urine pH 7.5 (4.5-7.5) Urine Specific Robertson 1.018 (1.000-1.030) Urine Protein NEG (NEG) Urine Glucose (UA) NEG (NEG) Urine Ketones NEG (NEG) Urine Occult Blood NEG (NEG) Urine Nitrite NEG (NEG) Urine Bilirubin NEG (NEG) Urine Urobilinogen NEG (NEG) Urine Leukocyte Esterase TRACE (NEG) Urine WBC (Auto) 1-5 /hpf (0-5) Urine RBC (Auto) 0-4 /hpf (0-4) Urine Hyaline Casts (Auto) 1-5 /lpf (0-5) Urine Epithelial Cells (Auto) >30 /lpf (0-5) Urine Bacteria (Auto) NEG (NEG) Urine Mucus PRESENT (NONE PRSENT) Urine Yeast (Auto) BUDDING (NONE PRSENT) Stool Occult Blood NEGATIVE (NEGATIVE) Test 03/25/17 04:53 03/25/17 16:07 03/28/17 05:11 03/28/17 05:16 Direct Bilirubin 0.1 mg/dl (0-0.2) Prothrombin Time 10.3 SECONDS (9.0-12.0) Prothromb Time International Ratio 1.0 (0.9-1.1) Nucleated RBC Absolute Count (auto) 0.02 K/uL (0-0) Nucleated Red Blood Cells % 0.5 % Large Platelets 1+ Tear Drop Cells 1+ Blood Gas Sample Site L Radial Bedside Blood Gas pH (LAB) 7.40 (7.35-7.45) Bedside Blood Gas pCO2 (LAB) 47 mmHg (35-46) Bedside Blood Gas pO2 (LAB) 74 mmHg (80-95) Bedside Blood Gas HCO3 (LAB) 29 meq/L (19-24) Bedside Blood Gas Total CO2 30 mEq/l (24-31) Bedside Blood Gas Base Excess (LAB) 4.0 meq/L (-9-1.8) Bedside Blood Gas O2 Saturation 95.0 % (90-95) Oxygen Delivery Device Ventilator Bedside Oxygen Rate (breaths/min) 12 Blood Gas Minute Ventilation 7.1 Bedside FiO2 30 % Blood Gas Tidal Volume 550 Blood Gas PEEP 5 Test 03/31/17 05:15 04/01/17 05:30 04/02/17 05:22 04/07/17 10:41 Activated Partial Thromboplast Time 26.2 SECONDS (21.0-31.0) Partial Thromboplastin Ratio 1.0 Estimated Average Glucose 91 mg/dl Hemoglobin A1c 4.8 % (4.5-5.6) Phosphorus Level 2.2 mg/dl (2.5-4.9) Prealbumin 22.4 mg/dl (20-40) Total Bilirubin 0.8 mg/dl (0.2-1) Aspartate Amino Transf (AST/SGOT) 26 U/L (15-37) Alanine Aminotransferase (ALT/SGPT) 76 U/L (12-78) Alkaline Phosphatase 64 U/L (45-117) Total Protein 6.3 gm/dl (6.4-8.2) Albumin 3.3 gm/dl (3.4-5.0) Globulin 3.0 gm/dl (2.5-4.0) Albumin/Globulin Ratio 1.1 (0.9-2) Test 04/07/17 10:42 04/07/17 11:22 04/09/17 05:55 04/09/17 15:54 Toxic Granulation 1+ Stomatocytes 1+ Arterial Blood pH 7.35 (7.35-7.45) Arterial Blood Partial Pressure CO2 61 mmHg (35-46) Arterial Blood Partial Pressure O2 113 mm/Hg (80-95) Arterial Blood HCO3 33 mmol/L (19-24) Arterial Blood Oxygen Saturation 97.7 % (90-95) Arterial Blood Base Excess 6.8 mEq/L (-9-1.8) Arterial Blood Gas Delivery 3 L Howard Test POS (POS) Red Blood Cell Morphology Unremarkable Troponin I 0.128 ng/ml (0-0.045) Test 04/10/17 05:56 04/11/17 06:31 04/11/17 11:19 Platelet Estimate DECREASED Anisocytosis PRESENT White Blood Count 11.07 K/uL (4.8-10.8) Red Blood Count 2.51 M/uL (4.7-6.1) Hemoglobin 7.9 g/dL (14.0-18.0) Hematocrit 25.0 % (42-52) Mean Corpuscular Volume 99.6 fL (80-100) Mean Corpuscular Hemoglobin 31.5 pg (25-34) Mean Corpuscular Hemoglobin Concent 31.6 g/dl (32-36) Platelet Count 90 K/uL (130-400) Mean Platelet Volume 10.8 fL (7.4-10.4) Neutrophils (%) (Auto) 90.8 % Lymphocytes (%) (Auto) 4.7 % Monocytes (%) (Auto) 3.8 % Eosinophils (%) (Auto) 0.3 % Basophils (%) (Auto) 0.0 % Neutrophils # (Auto) 10.06 K/uL (1.4-6.5) Lymphocytes # (Auto) 0.52 K/uL (1.2-3.4) Monocytes # (Auto) 0.42 K/uL (0.11-0.59) Eosinophils # (Auto) 0.03 K/uL (0-0.5) Basophils # (Auto) 0.00 K/uL (0-0.2) RDW Standard Deviation 53.6 fL (36.4-46.3) RDW Coefficient of Variation 15.1 % (11.5-14.5) Immature Granulocyte % (Auto) 0.4 % Immature Granulocyte # (Auto) 0.04 K/uL (0.00-0.02) Hypochromasia PRESENT Poikilocytosis PRESENT Anion Gap 3.0 mmol/L (3-11) Est Creatinine Clear Calc Drug Dose 43.1 ml/min Estimated GFR () 68.4 Estimated GFR (Non- 59.0 BUN/Creatinine Ratio 28.7 (10-20) Calcium Level 8.0 mg/dl (8.5-10.1) Magnesium Level 2.4 mg/dl (1.8-2.4) Bedside Glucose 198 mg/dl (70-99) Date/Time Source Procedure Growth Status 04/07/17 11:13 Blood Blood Culture - Preliminary NO GROWTH TO DATE. Resulted 03/25/17 09:20 Nasal MRSA DNA Surveillance Screen - Final Specimen Negative for MRSA by DNA Probe Complete 04/05/17 13:50 Sputum Expectorated Sputum Gram Stain - Final Complete 04/05/17 13:50 Sputum Culture - Final Aspergillus Fumigatus Complete 04/06/17 19:10 Urine , Clean Catch Urine Culture - Final NO GROWTH - LESS THAN 1,000 COLONIES/ML Complete Last 24 Hours Test 04/10/17 16:14 04/10/17 20:18 04/11/17 06:31 04/11/17 06:37 Bedside Glucose 181 mg/dl 213 mg/dl 145 mg/dl White Blood Count 11.07 K/uL Red Blood Count 2.51 M/uL Hemoglobin 7.9 g/dL Hematocrit 25.0 % Mean Corpuscular Volume 99.6 fL Mean Corpuscular Hemoglobin 31.5 pg Mean Corpuscular Hemoglobin Concent 31.6 g/dl Platelet Count 90 K/uL Mean Platelet Volume 10.8 fL Neutrophils (%) (Auto) 90.8 % Lymphocytes (%) (Auto) 4.7 % Monocytes (%) (Auto) 3.8 % Eosinophils (%) (Auto) 0.3 % Basophils (%) (Auto) 0.0 % Neutrophils # (Auto) 10.06 K/uL Lymphocytes # (Auto) 0.52 K/uL Monocytes # (Auto) 0.42 K/uL Eosinophils # (Auto) 0.03 K/uL Basophils # (Auto) 0.00 K/uL RDW Standard Deviation 53.6 fL RDW Coefficient of Variation 15.1 % Immature Granulocyte % (Auto) 0.4 % Immature Granulocyte # (Auto) 0.04 K/uL Hypochromasia PRESENT Poikilocytosis PRESENT Sodium Level 138 mmol/L Potassium Level 4.2 mmol/L Chloride Level 106 mmol/L Carbon Dioxide Level 29 mmol/L Anion Gap 3.0 mmol/L Blood Urea Nitrogen 35 mg/dl Creatinine 1.21 mg/dl Est Creatinine Clear Calc Drug Dose 43.1 ml/min Estimated GFR () 68.4 Estimated GFR (Non- 59.0 BUN/Creatinine Ratio 28.7 Random Glucose 124 mg/dl Calcium Level 8.0 mg/dl Magnesium Level 2.4 mg/dl Test 04/11/17 11:19 Bedside Glucose 198 mg/dl Assessment & Plan 71 yo M admitted with COPD exacerbation from PCP office, suffered a hypoxic event after noncompliance with BIPAP on 03/25 and developed ?seizure activity. He was treated with Ativan and subsequently intubated in the ICU. He remained vented from 03/25- and was successfully extubated. He was transferred to [facility] 03/31 and is doing well on nasal canula w BIPAP at night. He was noted to have worsening L -sided weakness and a repeat head CT confirmed acute infarct in bilateral occipital lobes and R frontal lobe. Neuro was consulted and added DAPT therapy and made additional recs for follow-up. He still has some LUE weakness but LLE weakness is improved/resolved. Worked with PT today. He denies any SOB, chest pain, or any other pain anywhere. He denies any issues with swallowing and denies that food gets stuck in his esophagus on the modified diet currently. He was started on amio per Cards yesterday with improvement in heart rate overnight. 1. Stroke/multiple infarcts-questionable diagnosis of atrial arrhythmia at this time. Per Cards, in light of stroke and possible embolic phenomena, anticoagulation is necessary. CT ordered for Sunday to ensure no hemorrhagic conversion then will proceed with coumadin and close monitoring. Cont amio which was started yesterday. Heart rate has improved. Cont DAPT per Neuro. 2. Acute respiratory failure, hypoxic and hypercapnic.-improved. Prednisone taper per pulm. Cont nightly BIPAP and PRN during the day as needed. Cont bronchodilator therapy. 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 3. COPD-dependent on home oxygen. Continues to actively smoke per family. He is not a candidate for LVRS 2/2 his low FEV1 of <20%. 4. Acute systolic heart failure seen after hypoxic event with elevated troponins. Was treated medically with heparin drip. Denies any chest pain today. Latest TTE shows an improved EF. Was on Toprol XL but this was stopped by Cards. He continues to do well on home diuretics including acetazolamide 250mg PO BID and Lasix 20mg PO daily. He appears to be euvolemic on exam today. Cont ASA and Plavix 5. pneumonia-completed a course of abx (Azithro and Ceftriaxone) The patient will need a 4-6 weeks follow-up xray as outpatient. Some residual cough present but no worsening. 6. Dysphagia-Video swallow study was completed earlier during the hospitalization revealing no evidence of aspiration. Recommendations were made by [employer] including slippery diet, GERD precautions and aspiration precautions. A Barium swallow study was also recommended to better assess esophageal dysfunction. We may pursue this when he is able to stand upright for the required length of time for the test. Currently too weak to stand and doing well on current diet. 7. Ambulatory dysfunction 2/2 deconditioning from prolonged hospitalization and ICU stay. cont PT/OT efforts. He will likely need to transition through rehab on his way home. Also, pt lives at home alone. Looking at dc early next week. Updated CM on this. 8. Ureteral calculus-7mm obstructing calculus present in distal right ureter noted on CT 03/23 and seen again on repeat KUB. Urology was consulted and considered stent, however, they would like pt to be optimized from a cardiopulmonary standpoint more before undergoing any procedure ideally. Pt is having no LUTS or flank pain currently. For now will have him follow-up with Urology as outpatient. 9. Anemia-likely multifactorial related to dilution, acute blood loss 2/2 daily phlebotomy and anemia of chronic disease. No indication for transfusion at this time but H/H has fallen. H/H ordered for am. 10. Tobacco use-encouraged to quit smoking. This is imperative at this point. 11. Thrombocytopenia. DVT proph-heparin Full Code Dispo-needs repeat head CT on Sunday prior to starting anticoagulation. Suspect DC to SNF early next week. I updated Jenae in CM regarding this. Pamela Moreno DO [facility] Hospitalist Continued [facility] stay due to: multiple IV medications needed, home environment unsafe for pt, other (acute care continues) Discharge planning: uncertain Consultants: Neuro-Dr. Denzel Blas Procedures: . Current Inpatient Medications: Current Inpatient Medications Medications (Trade) Dose Ordered Sig/Rosemary Route Start Time Stop Time Status Last Admin Dose Admin Acetaminophen (Tylenol Tab) 650 mg Q4H PRN PO 03/18/17 20:30 04/17/17 20:29 04/10/17 18:13 650 MG Miscellaneous Information (Order Awaiting Action) 1 ea QS N/A 03/19/17 00:00 04/18/17 00:00 04/03/17 16:00 1 EA Aspirin (Aspirin Chew) 81 mg DAILY PO 03/28/17 09:00 04/27/17 08:59 Future Hold 04/04/17 07:59 81 MG Lactulose (Chronulac Syrup) 30 gm Q6 PRN PO 03/30/17 08:30 04/29/17 08:29 04/07/17 09:30 30 GM Insulin Human Regular (novoLIN-R) SLIDING SCALE ACHS SC 03/31/17 11:00 04/30/17 10:59 04/11/17 11:46 2 UNITS Ipratropium [place] (Atrovent 0.02% 0.5MG/2.5ML Neb) 0.5 mg Q4H PRN INH 04/01/17 07:30 05/01/17 07:29 04/04/17 10:45 0.5 MG Levalbuterol (Xopenex 1.25MG/ 0.5ML Neb) 1.25 mg Q4H PRN INH 04/01/17 07:30 05/01/17 07:29 04/04/17 10:45 1.25 MG Alprazolam (Xanax Tab) 1 mg Q8H PRN PO 04/01/17 19:00 04/27/17 18:59 Acetazolamide (Diamox Tab) 250 mg BID17 PO 04/04/17 20:00 05/04/17 19:59 04/11/17 07:43 250 MG Furosemide (Lasix Tab) 20 mg DAILY PO 04/05/17 08:00 05/05/17 07:59 04/11/17 07:44 20 MG Magnesium Oxide (Mag-Ox Tab) 400 mg QAM PO 04/06/17 08:00 05/06/17 07:59 04/11/17 07:43 400 MG Enteral Nutritional Formula (Boost) 1 can BIDM PO 04/06/17 17:00 05/06/17 16:59 04/11/17 07:31 1 CAN Heparin Sodium (Porcine) (Heparin Sq 5000 Unit/0.5ml) 5,000 unit Q8 SQ 04/07/17 14:00 05/07/17 13:59 04/11/17 06:14 5,000 UNIT Aspirin (Ecotrin Tab) 81 mg QAM PO 04/08/17 08:00 05/08/17 07:59 04/11/17 07:43 81 MG Clopidogrel Bisulfate (plAVix TAB) 75 mg QAM PO 04/07/17 13:00 05/07/17 12:59 04/11/17 07:44 75 MG Ioversol (Optiray 320) 100 ml UD PRN IV 04/09/17 09:15 04/13/17 09:14 Prednisone (PredniSONE TAB) 30 mg Taper DAILY PO 04/10/17 09:00 04/19/17 08:59 12/27/17 07:44 30 MG Ipratropium [place] (Atrovent 0.02% 0.5MG/2.5ML Neb) 0.5 mg BIDR INH 04/09/17 20:00 05/01/17 19:59 04/11/17 07:33 0.5 MG Levalbuterol (Xopenex 1.25MG/ 0.5ML Neb) 1.25 mg BIDR INH 04/09/17 20:00 05/01/17 19:59 04/11/17 07:34 1.25 MG Amiodarone HCl (Cordarone Tab) 200 mg BID PO 04/10/17 21:00 05/10/17 20:59 04/11/17 07:43 200 MG
--- NOTE | 2017-04-11 16:36 | PROGRESS NOTE ---
DATE: 04/11/2017 DATE: 04/11/2017 Meek looks about the same today, he is awake, alert, conversant, has a little bit of flat affect, has a right homonymous hemianopsia. There may be an element of left field defect as well and he certainly has a left hemiparesis which is stable. There is some sensory neglect on bilaterally presented stimuli on the left side and a very soft left upper motor neuron facial weakness. There may be a tendency for head and eye deviation to the left as well. Left leg function is reasonably good, although it is slightly weaker than the right. At this point, we are simply waiting for a little more time. We will get another CT scan on Sunday and if there is no evidence for hemorrhagic conversion of the bioccipital and right hemispheric frontal infarct, then he will be started on anticoagulation as per Dr. Nuñez's note. Right now he is on amiodarone and on the assumption that he is in paroxysmal atrial fibrillation and overall this would be the most statistically likely cause of the recurrent emboli, although he does have a cardiomyopathy with reduced ejection fraction and could have had some clots from in the ventricle as well. The issue is academic. He does need some anticoagulation and the question now is just to timing of when it should be initiated. Frankly, I suspect we will not see a significant hemorrhagic component and we can start things on Sunday as planned. I will check back with him again tomorrow and Sunday. JOSÉ MANUEL
[2017-04-11] MEDS: ACETAMINOPHEN 325 MG TAB PO PRN (21:05)
[2017-04-12] VITALS (22 sets, daily range): BP systolic 101–135; BP diastolic 50–76; PULSE 85–113; TEMP 36.5–37.7; O2SAT 92–99
[2017-04-12] MEDS: HEPARIN SOD 5000 UNIT/0.5 ML CARP SQ SCH ×3 (05:44→21:01)
[2017-04-12 05:49] LABS: HEMATOCRIT 24.2 % (42-52); HEMOGLOBIN 7.7 g/dL (14.0-18.0)
[2017-04-12] MEDS: INSULIN HUMAN REGULAR SC SCH ×2 (07:00→11:59)
[2017-04-12] MEDS: LEVALBUTEROL 1.25MG/0.5ML NEB INH SCH ×2 (07:04→19:16)
[2017-04-12] MEDS: IPRATROPIUM BROMIDE NEB SOLN 0.02% 2.5 ML VIAL INH SCH ×2 (07:04→19:16)
[2017-04-12] MEDS: BOOST VANILLA PO SCH ×2 (07:37→16:45)
[2017-04-12] MEDS: AMIODARONE 200 MG TAB PO SCH ×2 (07:38→20:57)
[2017-04-12] MEDS: ASPIRIN 81 MG ECTAB PO SCH (07:38)
[2017-04-12] MEDS: MAGNESIUM OXIDE 400 MG TAB PO SCH (07:39)
[2017-04-12] MEDS: AcetaZOLAMIDE 250 MG TAB PO SCH ×2 (07:39→17:22)
[2017-04-12] MEDS: FUROSEMIDE 20 MG TAB PO SCH (07:39)
[2017-04-12] MEDS: CLOPIDOGREL BISULFATE 75 MG TAB PO SCH (07:39)
[2017-04-12] MEDS ORDERED: ACETAMINOPHEN 325 MG TAB PO ONE (12:00)
[2017-04-12] MEDS ORDERED: PHARMACY GLYCEMIC MGMT CONSULT PRN (12:17)
[2017-04-12] MEDS ORDERED: FUROSEMIDE INJ 40 MG in SYRINGE 0 ML IV ONE (14:00)
--- NOTE | 2017-04-12 15:04 | Pharmacy Progress Note ---
Pharmacy Glycemic Short Note 2 Date of Service Apr 12, 2017. OUTPATIENT ANTIDIABETIC REGIMEN: * n/a ASSESSMENT: * 71 yr old male admitted on 03/18/17. Pharmacy was previously consulted on this patient and signed off after patient stabilized and adequate glycemic control was achieved. Patient has been on prednisone taper since 04/06. Pharmacy re- consulted today d/t steroid induced hyperglycemia. * Pt is currently on Regular correctional insulin only. Carb ratio was removed on 04/09 after patient had a BSG of 63 at lunchtime. * I suspect pt needs carb coverage d/t to steroids - will resume a more conservative CR at this time. I will also change to Novolog insulin to avoid insulin stacking. * If improvement in BSGs is not seen on 04/13, may consider addition of weight based NPH while on prednisone. PLAN FOR INPATIENT GLYCEMIC CONTROL: * Basal insulin- none * Bolus insulin - add carb ratio * Change to NovoLog per scale ACHS * Goal Range: Low 110 mg/dL - High 140 mg/dL * Correction Factor: 30 mg/dL/unit * Nutritional / Prandial insulin per carb ratio of 1 unit per 15 grams CHO consumed PLAN FOR DISCHARGE: * Normal A1c and no h/o DM Thank you.
--- NOTE | 2017-04-12 15:56 | CARDIOLOGY PROGRESS NOTE ---
DATE: 04/12/2017 DATE: 04/12/2017 FOLLOW-UP VISIT SUBJECTIVE: The patient is a 71-year-old male who has had a prolonged hospital stay. He has sustained multiple infarcts including bilateral occipital lobe and frontal lobe. He also has an ischemic cardiomyopathy with an estimated left ventricular ejection fraction of 30-35%. He was started on amiodarone to suppress ventricular arrhythmias and probable paroxysmal atrial fibrillation in light of the appearance of embolic strokes. No new complaints today. He is maintaining a sinus rhythm. OBJECTIVE: GENERAL: In general, he is resting comfortably. VITAL SIGNS: The patient is maintaining a sinus rhythm. Blood pressure 120/60. Pulse is regular at 95 beats per minute. He is afebrile. HEAD, EYES, EARS, NOSE, AND THROAT: Normocephalic. Pupils are equal and reactive to light. Extraocular muscles are intact bilaterally. NECK: The neck veins are flat. Carotids have good upstrokes bilaterally without bruits. Thyroid is nonpalpable. RESPIRATORY: Breath sounds equal bilaterally and clear to auscultation. CARDIOVASCULAR: Heart has a regular rhythm. Normal S1, S2. No S3, S4. No cardiac rubs or murmurs. GASTROINTESTINAL: Abdomen is soft, nontender without organomegaly. EXTREMITIES: Free of edema, digit clubbing, or cyanosis. NEUROLOGIC: Grossly intact. The patient still has left-sided weakness. SKIN: Warm to touch. LYMPH NODES: Negative to palpation. LABORATORY DATA: Hemoglobin is 7.7 today and he is receiving blood transfusions. IMPRESSION: 1. Multiple cerebral infarcts suspicious for embolic events. 2. Ischemic cardiomyopathy. 3. Chronic obstructive lung disease. RECOMMENDATIONS: The patient is tolerating amiodarone and he has had no arrhythmias for the past 24 hours. I would continue the amiodarone at 200 mg b.i.d., however, eventually he should be lowered to 200 mg daily. We will also have to consider long-term anticoagulation, but I believe if his CTs are negative tomorrow then he will be started on Coumadin. At that point, I would go with aspirin only and discontinue the Plavix.
--- NOTE | 2017-04-12 16:30 | PROGRESS NOTE ---
DATE: 04/12/2017 Collins looks about the same today. He is more lethargic and apparently his hemoglobin fell to the point that he is now receiving transfusions. He may well have an occult GI bleed and plans to anticoagulate him due to his presumptive cerebral emboli are probably going to be put on the back burner based on this. He has been on aspirin and Plavix so he could have GI irritation due to the aspirin, but all of this is to some degree academic until GI possible source of blood loss is evaluated further. Right now he probably needs the aspirin stopped, the Plavix will probably stop as well. Thoughts of putting him on Coumadin are going to be held, but he will go on for the CT tomorrow to see if the infarcts have undergone hemorrhagic transformation. In terms of examination he still has a left hemiparesis, now the leg is a little more involved than it was yesterday, but this could be a normal evolutionary process and the arm is about the same. He has some neglect of bilaterally presented stimuli on the left and has a right homonymous hemianopsia and probably has a small left field cut as well that is hard to delineate. His affect is flat. His orientation is to person and place but not particularly time. He has a minimal left upper motor neuron facial weakness, a modest left arm weakness and a modest left leg weakness, all consistent with his frontal infarction and the visual loss is certainly consistent with the bilateral occipital infarctions. For now neurology is just going to check him periodically, but I think he really cannot be anticoagulated until the source of the blood loss is delineated. JOSÉ MANUEL
[2017-04-12] MEDS: INSULIN ASPART 100 UNITS/ML 3 ML PEN SC SCH ×2 (17:24→21:00)
--- NOTE | 2017-04-12 22:32 | Progress Note ---
Medicine Progress Note Date & Time of Visit: Apr 12, 2017 at 11:54. Subjective 71 yo M admitted with COPD exacerbation from PCP office, suffered a hypoxic event after noncompliance with BIPAP on 03/25 and developed ?seizure activity. He was treated with Ativan and subsequently intubated in the ICU. He remained vented from 03/25- and was successfully extubated. He was transferred to [facility] 03/31 and is doing well on nasal canula w BIPAP at night. He was noted to have worsening L -sided weakness and a repeat head CT confirmed acute infarct in bilateral occipital lobes and R frontal lobe. Neuro was consulted and added DAPT therapy and made additional recs for follow-up. He still has some LUE weakness but LLE weakness is improved/resolved. Working with PT. He continues to deny any SOB, chest pain, or any other pain anywhere. He denies any issues with swallowing and denies that food gets stuck in his esophagus on the modified diet currently. He was started on amio per Cards with improvement in heart rate. He has become progressively anemia and is now requiring blood. He is asymptomatic and eager to get home. I attempted to call his son but his vmail was full and I could not leave a message. Objective Last 8 Hrs Date Time Temp Pulse Resp B/P (MAP) Pulse Ox O2 Delivery O2 Flow Rate FiO2 04/12/17 11:33 37.7 110 22 115/55 (75) 98 Nasal Cannula 3.0 04/12/17 08:00 Nasal Cannula 2.5 04/12/17 07:40 36.8 101 18 128/68 (88) 96 Nasal Cannula 2.5 04/12/17 07:05 94 20 97 Nasal Cannula 2.5 04/12/17 04:45 36.5 91 27 123/50 (74) 98 Nasal Cannula 2.0 04/12/17 04:00 Nasal Cannula 3.0 Physical Exam: GEN: thin, elderly, frail, alert and appropriate. Appears generally weak. HEENT: NC/AT, pupils are equal and round bilaterally, normal sclerae, MMM, nasal canula in place and no respiratory distress. CARDIO: reg rate, S1/2 heard without m/g/r,+ radial pulses bilaterally LUNGS: clear lungs to auscultation bilaterally ABD: soft, non-distended, no guarding. +BS EXTREMITY: RP and DP palpable 2+ bilat, no LE swelling or edema, extremities are warm and well-perfused NEURO: CN 2-12 intact grossly, sensation intact throughout MSK: LUE: 3/5 biceps, 3/5 triceps, major assembly lineman strength intact, finger spread is weak RUE: 5/5 throughout, routeman strength intact LLE: 5/5 hip flexion/extension, 5/5 knee flexion/extension, 5/5 dorsi and plantarflexion RLE: 5/5 throughout. SKIN: warm and dry, multiple areas of ecchymosis noted all down arms. Laboratory Results: 04/11/17 06:31 Red Blood Count 2.51, Mean Corpuscular Volume 99.6, Mean Corpuscular Hemoglobin 31.5, Mean Corpuscular Hemoglobin Concent 31.6, Mean Platelet Volume 10.8, Neutrophils (%) (Auto) 90.8, Lymphocytes (%) (Auto) 4.7, Monocytes (%) (Auto) 3.8, Eosinophils (%) (Auto) 0.3, Basophils (%) (Auto) 0.0, Neutrophils # (Auto) 10.06, Lymphocytes # (Auto) 0.52, Monocytes # (Auto) 0.42, Eosinophils # (Auto) 0.03, Basophils # (Auto) 0.00 04/12/17 05:28 04/11/17 06:31 Test 03/18/17 00:00 03/18/17 17:25 03/18/17 20:14 03/19/17 00:53 Influenza Type A (RT-PCR) Neg for Influ A (NEG) Influenza Type A Antigen Neg for Influ A (NEG) Influenza Type B Antigen Neg for Influ B (NEG) Influenza Type B (RT-PCR) Neg for Influ B (NEG) Giant Platelets 1+ Polychromasia 1+ Peripheral Blood Smear Path Consult Lactic Acid Level 0.6 mmol/L (0.4-2.0) Absolute Reticulocyte Count 0.06 10^6/uL (0.02-0.10) Percent Reticulocyte Count 2.6 % (0.5-2.0) Ferritin 178.5 ng/ml (8.0-388.0) Vitamin B12 Level 559 pg/mL (211-911) Folate 10.95 ng/mL (>5.38) Test 03/20/17 05:43 03/23/17 07:22 03/23/17 10:47 03/24/17 10:25 Basophilic Stippling OCCASIONAL Iron Level 36 mcg/dl (35-175) Total Iron Binding Capacity 182 mcg/dl (250-450) Transferrin 123 mg/dl (200-360) Transferrin % Saturation 21 % (20-50) Prostate Specific Antigen 1.680 ng/ml (0.000-4.000) Urine Color YELLOW Urine Appearance CLEAR (CLEAR) Urine pH 7.5 (4.5-7.5) Urine Specific Downing 1.018 (1.000-1.030) Urine Protein NEG (NEG) Urine Glucose (UA) NEG (NEG) Urine Ketones NEG (NEG) Urine Occult Blood NEG (NEG) Urine Nitrite NEG (NEG) Urine Bilirubin NEG (NEG) Urine Urobilinogen NEG (NEG) Urine Leukocyte Esterase TRACE (NEG) Urine WBC (Auto) 1-5 /hpf (0-5) Urine RBC (Auto) 0-4 /hpf (0-4) Urine Hyaline Casts (Auto) 1-5 /lpf (0-5) Urine Epithelial Cells (Auto) >30 /lpf (0-5) Urine Bacteria (Auto) NEG (NEG) Urine Mucus PRESENT (NONE PRSENT) Urine Yeast (Auto) BUDDING (NONE PRSENT) Stool Occult Blood NEGATIVE (NEGATIVE) Test 03/25/17 04:53 03/25/17 16:07 03/28/17 05:11 03/28/17 05:16 Direct Bilirubin 0.1 mg/dl (0-0.2) Prothrombin Time 10.3 SECONDS (9.0-12.0) Prothromb Time International Ratio 1.0 (0.9-1.1) Nucleated RBC Absolute Count (auto) 0.02 K/uL (0-0) Nucleated Red Blood Cells % 0.5 % Large Platelets 1+ Tear Drop Cells 1+ Blood Gas Sample Site L Radial Bedside Blood Gas pH (LAB) 7.40 (7.35-7.45) Bedside Blood Gas pCO2 (LAB) 47 mmHg (35-46) Bedside Blood Gas pO2 (LAB) 74 mmHg (80-95) Bedside Blood Gas HCO3 (LAB) 29 meq/L (19-24) Bedside Blood Gas Total CO2 30 mEq/l (24-31) Bedside Blood Gas Base Excess (LAB) 4.0 meq/L (-9-1.8) Bedside Blood Gas O2 Saturation 95.0 % (90-95) Oxygen Delivery Device Ventilator Bedside Oxygen Rate (breaths/min) 12 Blood Gas Minute Ventilation 7.1 Bedside FiO2 30 % Blood Gas Tidal Volume 550 Blood Gas PEEP 5 Test 03/31/17 05:15 04/01/17 05:30 04/02/17 05:22 04/07/17 10:41 Activated Partial Thromboplast Time 26.2 SECONDS (21.0-31.0) Partial Thromboplastin Ratio 1.0 Estimated Average Glucose 91 mg/dl Hemoglobin A1c 4.8 % (4.5-5.6) Phosphorus Level 2.2 mg/dl (2.5-4.9) Prealbumin 22.4 mg/dl (20-40) Total Bilirubin 0.8 mg/dl (0.2-1) Aspartate Amino Transf (AST/SGOT) 26 U/L (15-37) Alanine Aminotransferase (ALT/SGPT) 76 U/L (12-78) Alkaline Phosphatase 64 U/L (45-117) Total Protein 6.3 gm/dl (6.4-8.2) Albumin 3.3 gm/dl (3.4-5.0) Globulin 3.0 gm/dl (2.5-4.0) Albumin/Globulin Ratio 1.1 (0.9-2) Test 04/07/17 10:42 04/07/17 11:22 04/09/17 05:55 04/09/17 15:54 Toxic Granulation 1+ Stomatocytes 1+ Arterial Blood pH 7.35 (7.35-7.45) Arterial Blood Partial Pressure CO2 61 mmHg (35-46) Arterial Blood Partial Pressure O2 113 mm/Hg (80-95) Arterial Blood HCO3 33 mmol/L (19-24) Arterial Blood Oxygen Saturation 97.7 % (90-95) Arterial Blood Base Excess 6.8 mEq/L (-9-1.8) Arterial Blood Gas Delivery 3 L Howard Test POS (POS) Red Blood Cell Morphology Unremarkable Troponin I 0.128 ng/ml (0-0.045) Test 04/10/17 05:56 04/11/17 06:31 04/12/17 20:29 Platelet Estimate DECREASED Anisocytosis PRESENT White Blood Count 11.07 K/uL (4.8-10.8) Red Blood Count 2.51 M/uL (4.7-6.1) Hemoglobin 7.9 g/dL (14.0-18.0) Hematocrit 25.0 % (42-52) Mean Corpuscular Volume 99.6 fL (80-100) Mean Corpuscular Hemoglobin 31.5 pg (25-34) Mean Corpuscular Hemoglobin Concent 31.6 g/dl (32-36) Platelet Count 90 K/uL (130-400) Mean Platelet Volume 10.8 fL (7.4-10.4) Neutrophils (%) (Auto) 90.8 % Lymphocytes (%) (Auto) 4.7 % Monocytes (%) (Auto) 3.8 % Eosinophils (%) (Auto) 0.3 % Basophils (%) (Auto) 0.0 % Neutrophils # (Auto) 10.06 K/uL (1.4-6.5) Lymphocytes # (Auto) 0.52 K/uL (1.2-3.4) Monocytes # (Auto) 0.42 K/uL (0.11-0.59) Eosinophils # (Auto) 0.03 K/uL (0-0.5) Basophils # (Auto) 0.00 K/uL (0-0.2) RDW Standard Deviation 53.6 fL (36.4-46.3) RDW Coefficient of Variation 15.1 % (11.5-14.5) Immature Granulocyte % (Auto) 0.4 % Immature Granulocyte # (Auto) 0.04 K/uL (0.00-0.02) Hypochromasia PRESENT Poikilocytosis PRESENT Anion Gap 3.0 mmol/L (3-11) Est Creatinine Clear Calc Drug Dose 43.1 ml/min Estimated GFR () 68.4 Estimated GFR (Non- 59.0 BUN/Creatinine Ratio 28.7 (10-20) Calcium Level 8.0 mg/dl (8.5-10.1) Magnesium Level 2.4 mg/dl (1.8-2.4) Bedside Glucose 205 mg/dl (70-99) Date/Time Source Procedure Growth Status 04/07/17 11:13 Blood Blood Culture - Preliminary NO GROWTH TO DATE. Resulted 03/25/17 09:20 Nasal MRSA DNA Surveillance Screen - Final Specimen Negative for MRSA by DNA Probe Complete 04/05/17 13:50 Sputum Expectorated Sputum Gram Stain - Final Complete 04/05/17 13:50 Sputum Culture - Final Aspergillus Fumigatus Complete 04/06/17 19:10 Urine , Clean Catch Urine Culture - Final NO GROWTH - LESS THAN 1,000 COLONIES/ML Complete Last 24 Hours Test 04/11/17 16:13 04/11/17 20:41 04/12/17 05:28 04/12/17 07:34 Bedside Glucose 211 mg/dl 193 mg/dl 99 mg/dl Hemoglobin 7.7 g/dL Hematocrit 24.2 % Test 04/12/17 11:02 04/12/17 11:03 Bedside Glucose 232 mg/dl 227 mg/dl Assessment & Plan 71 yo M admitted with COPD exacerbation from PCP office, suffered a hypoxic event after noncompliance with BIPAP on 03/25 and developed ?seizure activity. He was treated with Ativan and subsequently intubated in the ICU. He remained vented from 03/25- and was successfully extubated. He was transferred to [facility] 03/31 and is doing well on nasal canula w BIPAP at night. He was noted to have worsening L -sided weakness and a repeat head CT confirmed acute infarct in bilateral occipital lobes and R frontal lobe. Neuro was consulted and added DAPT therapy and made additional recs for follow-up. He still has some LUE weakness but LLE weakness is improved/resolved. Working with PT. He continues to deny any SOB, chest pain, or any other pain anywhere. He denies any issues with swallowing and denies that food gets stuck in his esophagus on the modified diet currently. He was started on amio per Cards with improvement in heart rate. He has become progressively anemia and is now requiring blood. He is asymptomatic and eager to get home. I attempted to call his son but his vmail was full and I could not leave a message. 1. Stroke/multiple infarcts-questionable diagnosis of atrial arrhythmia at this time. Per Cards, in light of stroke and possible embolic phenomena, anticoagulation is necessary. CT ordered for Sunday to ensure no hemorrhagic conversion then will proceed with coumadin and close monitoring. May have to hold on this a couple of days until blood counts have stabilized. Cont amio. Heart rate has improved. Cont DAPT per Neuro. 2. Acute respiratory failure, hypoxic and hypercapnic.-improved. Prednisone taper per pulm. Cont nightly BIPAP and PRN during the day as needed. Cont bronchodilator therapy. 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 3. COPD-dependent on home oxygen. Continues to actively smoke per family. He is not a candidate for LVRS 2/2 his low FEV1 of <20%. 4. Acute systolic heart failure seen after hypoxic event with elevated troponins. Was treated medically with heparin drip. Denies any chest pain today. Latest TTE shows an improved EF. Was on Toprol XL but this was stopped by Cards. He continues to do well on home diuretics including acetazolamide 250mg PO BID and Lasix 20mg PO daily. He remains euvolemic on exam. 5. Pneumonia-completed a course of abx (Azithro and Ceftriaxone) The patient will need a 4-6 weeks follow-up xray as outpatient. Some residual cough present but no worsening. 6. Dysphagia-Video swallow study was completed earlier during the hospitalization revealing no evidence of aspiration. Recommendations were made by AX SURVEY WORKER including slippery diet, GERD precautions and aspiration precautions. A Barium swallow study was also recommended to better assess esophageal dysfunction. We may pursue this when he is able to stand upright for the required length of time for the test. Currently too weak to stand and doing well on current diet. 7. Ambulatory dysfunction 2/2 deconditioning from prolonged hospitalization and ICU stay. cont PT/OT efforts. He will likely need to transition through rehab on his way home. Also, pt lives at home alone. Looking at dc early next week. Updated CM on this. 8. Ureteral calculus-7mm obstructing calculus present in distal right ureter noted on CT 03/23 and seen again on repeat KUB. Urology was consulted and considered stent, however, they would like pt to be optimized from a cardiopulmonary standpoint more before undergoing any procedure ideally. Pt is having no LUTS or flank pain currently. For now will have him follow-up with Urology as outpatient. 9. Anemia-likely multifactorial related to dilution, acute blood loss 2/2 daily phlebotomy and anemia of chronic disease. This has been indolent and is not likely 2/2 acute bleeding. Transfuse 2 units pRBCs and monitor H/H for response and stability. 10. Tobacco use-encouraged to quit smoking. This is imperative at this point. 11. Thrombocytopenia. DVT proph-heparin Full Code Dispo-needs repeat head CT on Sunday prior to starting anticoagulation. Suspect DC to SNF early next week. DO [facility] Continued [facility] stay due to: multiple IV medications needed, home environment unsafe for pt, other (acute care continues) Discharge planning: uncertain Consultants: Neuro-Dr. Denzel Blas Procedures: . Current Inpatient Medications: Current Inpatient Medications Medications (Trade) Dose Ordered Sig/Rosemary Route Start Time Stop Time Status Last Admin Dose Admin Acetaminophen (Tylenol Tab) 650 mg Q4H PRN PO 03/18/17 20:30 04/17/17 20:29 04/11/17 21:05 650 MG Miscellaneous Information (Order Awaiting Action) 1 ea QS N/A 03/19/17 00:00 04/18/17 00:00 04/03/17 16:00 1 EA Aspirin (Aspirin Chew) 81 mg DAILY PO 03/28/17 09:00 04/27/17 08:59 Future Hold 04/04/17 07:59 81 MG Lactulose (Chronulac Syrup) 30 gm Q6 PRN PO 03/30/17 08:30 04/29/17 08:29 04/07/17 09:30 30 GM Insulin Human Regular (novoLIN-R) SLIDING SCALE ACHS SC 03/31/17 11:00 04/30/17 10:59 04/11/17 21:00 2 UNITS Ipratropium Dundas (Atrovent 0.02% 0.5MG/2.5ML Neb) 0.5 mg Q4H PRN INH 04/01/17 07:30 05/01/17 07:29 04/04/17 10:45 0.5 MG Levalbuterol (Xopenex 1.25MG/ 0.5ML Neb) 1.25 mg Q4H PRN INH 04/01/17 07:30 05/01/17 07:29 04/04/17 10:45 1.25 MG Alprazolam (Xanax Tab) 1 mg Q8H PRN PO 04/01/17 19:00 04/27/17 18:59 04/11/17 21:05 1 MG Acetazolamide (Diamox Tab) 250 mg BID17 PO 04/04/17 20:00 05/04/17 19:59 04/12/17 07:39 250 MG Furosemide (Lasix Tab) 20 mg DAILY PO 04/05/17 08:00 05/05/17 07:59 04/12/17 07:39 20 MG Magnesium Oxide (Mag-Ox Tab) 400 mg QAM PO 04/06/17 08:00 05/06/17 07:59 04/12/17 07:39 400 MG Enteral Nutritional Formula (Boost) 1 can BIDM PO 04/06/17 17:00 05/06/17 16:59 04/12/17 07:37 1 CAN Heparin Sodium (Porcine) (Heparin Sq 5000 Unit/0.5ml) 5,000 unit Q8 SQ 04/07/17 14:00 05/07/17 13:59 04/12/17 05:44 5,000 UNIT Aspirin (Ecotrin Tab) 81 mg QAM PO 04/08/17 08:00 05/08/17 07:59 04/12/17 07:38 81 MG Clopidogrel Bisulfate (plAVix TAB) 75 mg QAM PO 04/07/17 13:00 05/07/17 12:59 04/12/17 07:39 75 MG Ioversol (Optiray 320) 100 ml UD PRN IV 04/09/17 09:15 04/13/17 09:14 Prednisone (PredniSONE TAB) 30 mg Taper DAILY PO 04/10/17 09:00 04/19/17 08:59 04/12/17 07:39 30 MG Ipratropium [place]undas (Atrovent 0.02% 0.5MG/2.5ML Neb) 0.5 mg BIDR INH 04/09/17 20:00 05/01/17 19:59 04/12/17 07:04 0.5 MG Levalbuterol (Xopenex 1.25MG/ 0.5ML Neb) 1.25 mg BIDR INH 04/09/17 20:00 05/01/17 19:59 04/12/17 07:04 1.25 MG Amiodarone HCl (Cordarone Tab) 200 mg BID PO 04/10/17 21:00 05/10/17 20:59 04/12/17 07:38 200 MG Miscellaneous Information (Consult Glycemic Management Pharmacy) 1 ea NOW STAT N/A 04/12/17 11:49 04/12/17 11:50 UNV
[2017-04-13] VITALS (8 sets, daily range): BP systolic 110–162; BP diastolic 56–71; PULSE 79–110; TEMP 36.3–37; O2SAT 93–99
[2017-04-13] MEDS: HEPARIN SOD 5000 UNIT/0.5 ML CARP SQ SCH (06:18)
[2017-04-13] MEDS: IPRATROPIUM BROMIDE NEB SOLN 0.02% 2.5 ML VIAL INH SCH ×2 (06:51→19:09)
[2017-04-13] MEDS: LEVALBUTEROL 1.25MG/0.5ML NEB INH SCH ×2 (06:52→19:09)
[2017-04-13 07:05] LABS: HEMATOCRIT 32.7 % (42-52); HEMOGLOBIN 10.9 g/dL (14.0-18.0); MEAN CELL VOLUME 95.6 fL (80-100); MEAN CORPUSCULAR HEMOGLOBIN 31.9 pg (25-34); MEAN CORPUSCULAR HGB CONC 33.3 g/dl (32-36); MEAN PLATELET VOLUME 10.6 fL (7.4-10.4); PLATELET COUNT 78 K/uL (130-400); RED CELL DISTRIBUTION WIDTH CV 15.9 % (11.5-14.5); RED CELL DISTRIBUTION WIDTH SD 55.1 fL (36.4-46.3); WHITE BLOOD COUNT 13.33 K/uL (4.8-10.8)
[2017-04-13] MEDS: INSULIN ASPART 100 UNITS/ML 3 ML PEN SC SCH ×4 (08:28→20:48)
[2017-04-13] MEDS: BOOST VANILLA PO SCH ×2 (08:29→16:57)
[2017-04-13] MEDS: MAGNESIUM OXIDE 400 MG TAB PO SCH (08:29)
[2017-04-13] MEDS: AcetaZOLAMIDE 250 MG TAB PO SCH ×2 (08:30→16:58)
[2017-04-13] MEDS: AMIODARONE 200 MG TAB PO SCH ×2 (08:30→20:47)
[2017-04-13] MEDS: CLOPIDOGREL BISULFATE 75 MG TAB PO SCH (08:30)
[2017-04-13] MEDS: ASPIRIN 81 MG ECTAB PO SCH (08:30)
[2017-04-13] MEDS: FUROSEMIDE 20 MG TAB PO SCH (08:30)
--- NOTE | 2017-04-13 09:34 | DIAGNOSTIC IMAGING REPORT ---
HEAD CT NONCONTRAST CT DOSE: 1050.53 mGycm HISTORY: follow-up post-stroke to ensure no hemorrhagic conversion prior TECHNIQUE: Multiaxial CT images of the head were performed without the use of intravenous contrast. Automated exposure control was utilized for this study. A dose lowering technique was utilized adhering to the principles of ALARA. Comparison: Head CT 04/09/2017. Findings: Mild mucosal thickening within the right maxillary sinus. The mastoid air cells are clear. Persistent patchy hypodense areas within the bilateral parietal/occipital lobes and right frontal lobe consistent with subacute infarcts. No evidence for hemorrhagic transformation at this time. The ventricles are normal in size. There is no mass or midline shift. Impression: No change in the right frontal and bilateral parietal/occipital lobe subacute infarcts. No evidence for hemorrhagic transformation. Electronically signed by: Jose You M.D. 04/13/2017 9:33 AM Dictated Date/Time: 04/13/2017 9:15 AM
--- NOTE | 2017-04-13 10:35 | Progress Note ---
Subjective Date of Service: Apr 13, 2017. Subjective Pt evaluation today including: conversation w/ patient, chart review, lab review Voiding: villa catheter in place (patent, draining clear, yellow urine ) reconsulted for UR. Pt failed TOV yesterday. PVR >800ml. Flomax had been stopped d/t hypotension. BP of 122/58 this morning. Problem List Medical Problems: (1) COPD exacerbation Status: Acute (2) Hypoxia Status: Acute (3) Pancytopenia Status: Acute (4) Pneumonia Status: Acute Review of Systems Constitutional: No fever, No chills Respiratory: + shortness of breath Cardiac: No chest pain Abdomen: No pain, No nausea, No vomiting Male : No dysuria, No hematuria Heme: No abnormal bleeding/bruising Objective Vital Signs Date Time Temp Pulse Resp B/P (MAP) Pulse Ox O2 Delivery O2 Flow Rate FiO2 04/13/17 08:17 36.9 87 28 122/58 (79) 96 Nasal Cannula 2.0 04/13/17 06:53 96 18 99 Nasal Cannula 2.0 04/13/17 04:53 36.3 90 28 162/69 (100) 93 Nasal Cannula 2.0 04/13/17 04:00 Nasal Cannula 2.0 04/13/17 00:48 36.6 96 22 114/62 (79) 93 Nasal Cannula 2.0 04/12/17 23:59 Nasal Cannula 2.0 04/12/17 21:30 37.1 113 20 133/76 94 2.0 04/12/17 20:36 98 Room Air 2.0 30 04/12/17 20:31 37.1 113 20 135/75 94 2.0 04/12/17 19:55 37.2 103 26 125/68 (87) 97 Nasal Cannula 2.0 04/12/17 19:30 36.9 102 25 106/62 97 2.0 04/12/17 19:16 100 17 97 Nasal Cannula 2.0 04/12/17 19:15 37.0 110 20 124/72 93 2.0 04/12/17 19:00 37.0 113 20 126/74 93 2.0 04/12/17 18:45 36.9 111 20 122/72 92 2.0 04/12/17 18:30 37.4 101 16 121/59 93 2.0 04/12/17 17:28 37.5 95 20 114/67 97 2.0 04/12/17 16:27 37.4 85 22 121/61 99 2.0 04/12/17 16:25 98 Room Air 2.0 30 04/12/17 15:42 37.3 96 24 107/53 (71) 98 Room Air 04/12/17 15:27 37.3 96 24 107/53 98 04/12/17 14:58 37.3 102 16 120/55 99 2.0 04/12/17 14:36 37.3 102 16 117/60 96 2.0 04/12/17 12:00 Nasal Cannula 2.0 04/12/17 11:33 37.7 110 22 115/55 (75) 98 Nasal Cannula 3.0 Physical Exam General Appearance: no apparent distress Eyes: normal inspection ENT: hearing grossly normal Neck: no JVD Respiratory/Chest: no respiratory distress, no accessory muscle use Cardiovascular: no JVD Extremities: normal inspection Neurologic/Psychiatric: alert, normal mood/affect, oriented x 3 Skin: normal color Laboratory Results Last 24 Hours Test 04/12/17 11:03 04/12/17 16:09 04/12/17 20:29 04/13/17 06:11 Bedside Glucose 227 mg/dl 139 mg/dl 205 mg/dl White Blood Count 13.33 K/uL Red Blood Count 3.42 M/uL Hemoglobin 10.9 g/dL Hematocrit 32.7 % Mean Corpuscular Volume 95.6 fL Mean Corpuscular Hemoglobin 31.9 pg Mean Corpuscular Hemoglobin Concent 33.3 g/dl RDW Standard Deviation 55.1 fL RDW Coefficient of Variation 15.9 % Platelet Count 78 K/uL Mean Platelet Volume 10.6 fL Test 04/13/17 07:00 Bedside Glucose 100 mg/dl Assessment and Plan A/P: Gross hematuria, Right ureteral stone, fever, UTI, phimosis AFVSS. Gross hematuria resolved. Repeat UC&S negative. Stone visible on KUB. Plan to avoid any surgical intervention unless the pt were to decompensate, develop fever, or ARF. Will tentatively plan for outpatient management of stone with possible circumcision vs dorsal slit once the pt has been optimized from a cardiopulmonary standpoint. Will plan to leave villa catheter in place for 10-14 days. Plan for outpatient TOV and cysto at that time for further evaluation. Will restart Flomax given his baseline voiding dysfunction. D/c if orthostasis occurs. Will arrange for outpatient f/u with Dr. Jaramillo. No further management at this time. Recall PRN issues. Thanks for allowing us to participate in this pt's care. Continued [facility] stay due to: multiple IV medications needed, home environment unsafe for pt, other (acute care continues) Discharge planning: uncertain
--- NOTE | 2017-04-13 11:23 | Progress Note ---
Medicine Progress Note Date & Time of Visit: Apr 13, 2017 at 11:14. Subjective 71 yo M admitted with COPD exacerbation from PCP office, suffered a hypoxic event after noncompliance with BIPAP on 03/25 and developed ?seizure activity. He was treated with Ativan and subsequently intubated in the ICU. He remained vented from 03/25- and was successfully extubated. He was transferred to [facility] 03/31 and is doing well on nasal canula w BIPAP at night. He was noted to have worsening L -sided weakness and a repeat head CT confirmed acute infarct in bilateral occipital lobes and R frontal lobe. Neuro was consulted and added DAPT therapy and made additional recs for follow-up. He still has some LUE weakness but LLE weakness is improved/resolved. Working with PT. He continues to deny any SOB, chest pain, or any other pain anywhere. He denies any issues with swallowing and denies that food gets stuck in his esophagus on the modified diet currently. He was started on amio per Cards with improvement in heart rate to low 100s. He became progressively anemic and required 2 units of blood yesterday with good response in H/H this am. He is asymptomatic and eager to get home. I discussed the anticoagulation plan further with both Pineda Mahoney and [place]. Dr. Mahoney is in favor of ASA only at this point with excessive bruising, his platelets in the 70s and his fall risk and not starting coumadin. Additionally , Dr. Nuñez agrees and we decided to hold any blood thinners for the next couple of days in order to allow the platelets to rise somewhat before restarting the aspirin. Objective Last 8 Hrs Date Time Temp Pulse Resp B/P (MAP) Pulse Ox O2 Delivery O2 Flow Rate FiO2 04/13/17 10:57 37.0 103 20 110/56 (74) 95 Nasal Cannula 2.0 04/13/17 08:17 36.9 87 28 122/58 (79) 96 Nasal Cannula 2.0 04/13/17 08:00 Nasal Cannula 2.0 04/13/17 06:53 96 18 99 Nasal Cannula 2.0 04/13/17 04:53 36.3 90 28 162/69 (100) 93 Nasal Cannula 2.0 04/13/17 04:00 Nasal Cannula 2.0 Physical Exam: GEN: thin, elderly, frail, alert and appropriate. Appears generally weak. HEENT: NC/AT, pupils are equal and round bilaterally, normal sclerae, MMM, nasal canula in place and no respiratory distress. CARDIO: reg rate, S1/2 heard without m/g/r,+ radial pulses bilaterally LUNGS: clear lungs to auscultation bilaterally ABD: soft, non-distended, no guarding. +BS EXTREMITY: RP and DP palpable 2+ bilat, no LE swelling or edema, extremities are warm and well-perfused NEURO: CN 2-12 intact grossly, sensation intact throughout MSK: LUE: 4/5 biceps, 4/5 triceps, director advertising strength intact, finger spread is weak RUE: 5/5 throughout, stained glass artist strength intact LLE: 5/5 hip flexion/extension, 5/5 knee flexion/extension, 5/5 dorsi and plantarflexion RLE: 5/5 throughout. SKIN: warm and dry, multiple areas of ecchymosis noted all down arms. Laboratory Results: 04/13/17 06:11 04/11/17 06:31 Test 03/18/17 00:00 03/18/17 17:25 03/18/17 20:14 03/19/17 00:53 Influenza Type A (RT-PCR) Neg for Influ A (NEG) Influenza Type A Antigen Neg for Influ A (NEG) Influenza Type B Antigen Neg for Influ B (NEG) Influenza Type B (RT-PCR) Neg for Influ B (NEG) Giant Platelets 1+ Polychromasia 1+ Peripheral Blood Smear Path Consult Lactic Acid Level 0.6 mmol/L (0.4-2.0) Absolute Reticulocyte Count 0.06 10^6/uL (0.02-0.10) Percent Reticulocyte Count 2.6 % (0.5-2.0) Ferritin 178.5 ng/ml (8.0-388.0) Vitamin B12 Level 559 pg/mL (211-911) Folate 10.95 ng/mL (>5.38) Test 03/20/17 05:43 03/23/17 07:22 03/23/17 10:47 03/24/17 10:25 Basophilic Stippling OCCASIONAL Iron Level 36 mcg/dl (35-175) Total Iron Binding Capacity 182 mcg/dl (250-450) Transferrin 123 mg/dl (200-360) Transferrin % Saturation 21 % (20-50) Prostate Specific Antigen 1.680 ng/ml (0.000-4.000) Urine Color YELLOW Urine Appearance CLEAR (CLEAR) Urine pH 7.5 (4.5-7.5) Urine Specific Henley 1.018 (1.000-1.030) Urine Protein NEG (NEG) Urine Glucose (UA) NEG (NEG) Urine Ketones NEG (NEG) Urine Occult Blood NEG (NEG) Urine Nitrite NEG (NEG) Urine Bilirubin NEG (NEG) Urine Urobilinogen NEG (NEG) Urine Leukocyte Esterase TRACE (NEG) Urine WBC (Auto) 1-5 /hpf (0-5) Urine RBC (Auto) 0-4 /hpf (0-4) Urine Hyaline Casts (Auto) 1-5 /lpf (0-5) Urine Epithelial Cells (Auto) >30 /lpf (0-5) Urine Bacteria (Auto) NEG (NEG) Urine Mucus PRESENT (NONE PRSENT) Urine Yeast (Auto) BUDDING (NONE PRSENT) Stool Occult Blood NEGATIVE (NEGATIVE) Test 03/25/17 04:53 03/25/17 16:07 03/28/17 05:11 03/28/17 05:16 Direct Bilirubin 0.1 mg/dl (0-0.2) Prothrombin Time 10.3 SECONDS (9.0-12.0) Prothromb Time International Ratio 1.0 (0.9-1.1) Nucleated RBC Absolute Count (auto) 0.02 K/uL (0-0) Nucleated Red Blood Cells % 0.5 % Large Platelets 1+ Tear Drop Cells 1+ Blood Gas Sample Site L Radial Bedside Blood Gas pH (LAB) 7.40 (7.35-7.45) Bedside Blood Gas pCO2 (LAB) 47 mmHg (35-46) Bedside Blood Gas pO2 (LAB) 74 mmHg (80-95) Bedside Blood Gas HCO3 (LAB) 29 meq/L (19-24) Bedside Blood Gas Total CO2 30 mEq/l (24-31) Bedside Blood Gas Base Excess (LAB) 4.0 meq/L (-9-1.8) Bedside Blood Gas O2 Saturation 95.0 % (90-95) Oxygen Delivery Device Ventilator Bedside Oxygen Rate (breaths/min) 12 Blood Gas Minute Ventilation 7.1 Bedside FiO2 30 % Blood Gas Tidal Volume 550 Blood Gas PEEP 5 Test 03/31/17 05:15 04/01/17 05:30 04/02/17 05:22 04/07/17 10:41 Activated Partial Thromboplast Time 26.2 SECONDS (21.0-31.0) Partial Thromboplastin Ratio 1.0 Estimated Average Glucose 91 mg/dl Hemoglobin A1c 4.8 % (4.5-5.6) Phosphorus Level 2.2 mg/dl (2.5-4.9) Prealbumin 22.4 mg/dl (20-40) Total Bilirubin 0.8 mg/dl (0.2-1) Aspartate Amino Transf (AST/SGOT) 26 U/L (15-37) Alanine Aminotransferase (ALT/SGPT) 76 U/L (12-78) Alkaline Phosphatase 64 U/L (45-117) Total Protein 6.3 gm/dl (6.4-8.2) Albumin 3.3 gm/dl (3.4-5.0) Globulin 3.0 gm/dl (2.5-4.0) Albumin/Globulin Ratio 1.1 (0.9-2) Test 04/07/17 10:42 04/07/17 11:22 04/09/17 05:55 04/09/17 15:54 Toxic Granulation 1+ Stomatocytes 1+ Arterial Blood pH 7.35 (7.35-7.45) Arterial Blood Partial Pressure CO2 61 mmHg (35-46) Arterial Blood Partial Pressure O2 113 mm/Hg (80-95) Arterial Blood HCO3 33 mmol/L (19-24) Arterial Blood Oxygen Saturation 97.7 % (90-95) Arterial Blood Base Excess 6.8 mEq/L (-9-1.8) Arterial Blood Gas Delivery 3 L Howard Test POS (POS) Red Blood Cell Morphology Unremarkable Troponin I 0.128 ng/ml (0-0.045) Test 04/10/17 05:56 04/11/17 06:31 04/13/17 06:11 04/13/17 07:00 Platelet Estimate DECREASED Anisocytosis PRESENT Immature Granulocyte % (Auto) 0.4 % White Blood Count 11.07 K/uL (4.8-10.8) Red Blood Count 2.51 M/uL (4.7-6.1) 3.42 M/uL (4.7-6.1) Hemoglobin 7.9 g/dL (14.0-18.0) Hematocrit 25.0 % (42-52) Mean Corpuscular Volume 99.6 fL (80-100) 95.6 fL (80-100) Mean Corpuscular Hemoglobin 31.5 pg (25-34) 31.9 pg (25-34) Mean Corpuscular Hemoglobin Concent 31.6 g/dl (32-36) 33.3 g/dl (32-36) Platelet Count 90 K/uL (130-400) Mean Platelet Volume 10.8 fL (7.4-10.4) 10.6 fL (7.4-10.4) Neutrophils (%) (Auto) 90.8 % Lymphocytes (%) (Auto) 4.7 % Monocytes (%) (Auto) 3.8 % Eosinophils (%) (Auto) 0.3 % Basophils (%) (Auto) 0.0 % Neutrophils # (Auto) 10.06 K/uL (1.4-6.5) Lymphocytes # (Auto) 0.52 K/uL (1.2-3.4) Monocytes # (Auto) 0.42 K/uL (0.11-0.59) Eosinophils # (Auto) 0.03 K/uL (0-0.5) Basophils # (Auto) 0.00 K/uL (0-0.2) Immature Granulocyte # (Auto) 0.04 K/uL (0.00-0.02) Hypochromasia PRESENT Poikilocytosis PRESENT Anion Gap 3.0 mmol/L (3-11) Est Creatinine Clear Calc Drug Dose 43.1 ml/min Estimated GFR () 68.4 Estimated GFR (Non- 59.0 BUN/Creatinine Ratio 28.7 (10-20) Calcium Level 8.0 mg/dl (8.5-10.1) Magnesium Level 2.4 mg/dl (1.8-2.4) RDW Standard Deviation 55.1 fL (36.4-46.3) RDW Coefficient of Variation 15.9 % (11.5-14.5) Bedside Glucose 100 mg/dl (70-99) Date/Time Source Procedure Growth Status 04/07/17 11:13 Blood Blood Culture - Final NO GROWTH Complete 03/25/17 09:20 Nasal MRSA DNA Surveillance Screen - Final Specimen Negative for MRSA by DNA Probe Complete 04/05/17 13:50 Sputum Expectorated Sputum Gram Stain - Final Complete 04/05/17 13:50 Sputum Culture - Final Aspergillus Fumigatus Complete 04/06/17 19:10 Urine , Clean Catch Urine Culture - Final NO GROWTH - LESS THAN 1,000 COLONIES/ML Complete Last 24 Hours Test 04/12/17 16:09 04/12/17 20:29 04/13/17 06:11 04/13/17 07:00 Bedside Glucose 139 mg/dl 205 mg/dl 100 mg/dl White Blood Count 13.33 K/uL Red Blood Count 3.42 M/uL Hemoglobin 10.9 g/dL Hematocrit 32.7 % Mean Corpuscular Volume 95.6 fL Mean Corpuscular Hemoglobin 31.9 pg Mean Corpuscular Hemoglobin Concent 33.3 g/dl RDW Standard Deviation 55.1 fL RDW Coefficient of Variation 15.9 % Platelet Count 78 K/uL Mean Platelet Volume 10.6 fL Assessment & Plan 71 yo M admitted with COPD exacerbation from PCP office, suffered a hypoxic event after noncompliance with BIPAP on 03/25 and developed ?seizure activity. He was treated with Ativan and subsequently intubated in the ICU. He remained vented from 03/25- and was successfully extubated. He was transferred to [facility] 03/31 and is doing well on nasal canula w BIPAP at night. He was noted to have worsening L -sided weakness and a repeat head CT confirmed acute infarct in bilateral occipital lobes and R frontal lobe. Neuro was consulted and added DAPT therapy and made additional recs for follow-up. He still has some LUE weakness but LLE weakness is improved/resolved. Working with PT. He continues to deny any SOB, chest pain, or any other pain anywhere. He denies any issues with swallowing and denies that food gets stuck in his esophagus on the modified diet currently. He was started on amio per Cards with improvement in heart rate to low 100s. He became progressively anemic and required 2 units of blood yesterday with good response in H/H this am. He is asymptomatic and eager to get home. I discussed the anticoagulation plan further with both Pineda Mahoney and [place]. Dr. Mahoney is in favor of ASA only at this point with excessive bruising, his platelets in the 70s and his fall risk and not starting coumadin. Additionally , Dr. Nuñez agrees and we decided to hold any blood thinners for the next couple of days in order to allow the platelets to rise somewhat before restarting the aspirin. 1. Stroke/multiple infarcts-questionable diagnosis of atrial arrhythmia at this time. Per Cards, in light of stroke and possible embolic phenomena, anticoagulation is necessary but per contraindications above this will be put on hold until later in the future. CT this morning reveals no hemorrhagic conversion. Holding antiplatelets and anticoagulants at this time. Cont amio. Heart rate in low 100s. 2, Acute urinary retention yesterday-failed TOV with >800cc retained urine. Cabral replaced and should stay in per Urology 10-14 days with outpatient Urology followup. 3. Acute respiratory failure, hypoxic and hypercapnic.-resolved and stable. Prednisone taper per pulm. Cont nightly BIPAP and PRN during the day as needed. Cont bronchodilator therapy. 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 4. COPD-dependent on home oxygen. Continues to actively smoke per family. He is not a candidate for LVRS 2/2 his low FEV1 of <20%. 5. Acute systolic heart failure seen after hypoxic event with elevated troponins. Was treated medically with heparin drip. Denies any chest pain today. Latest TTE shows an improved EF. Was on Toprol XL but this was stopped by Cards. He continues to do well on home diuretics including acetazolamide 250mg PO BID and Lasix 20mg PO daily. He remains euvolemic on exam. 6. Pneumonia-completed a course of abx (Azithro and Ceftriaxone) The patient will need a 4-6 weeks follow-up xray as outpatient. 7. Dysphagia-Video swallow study was completed earlier during the hospitalization revealing no evidence of aspiration. Recommendations were made by GEOMAGNETICIAN including slippery diet, GERD precautions and aspiration precautions. A Barium swallow study was also recommended to better assess esophageal dysfunction. We may pursue this when he is able to stand upright for the required length of time for the test. Currently too weak to stand and doing well on current diet. 8. Ambulatory dysfunction 2/2 deconditioning from prolonged hospitalization and ICU stay. cont PT/OT efforts. He will likely need to transition through rehab on his way home. Also, pt lives at home alone. Looking at dc early next week. 9. Ureteral calculus-7mm obstructing calculus present in distal right ureter noted on CT 03/23 and seen again on repeat KUB. Urology was consulted and considered stent, however, they would like pt to be optimized from a cardiopulmonary standpoint more before undergoing any procedure ideally. Pt is having no LUTS or flank pain currently. For now will have him follow-up with Urology as outpatient. 10. Anemia-likely multifactorial related to dilution, acute blood loss 2/2 daily phlebotomy and anemia of chronic disease. This has been indolent and is not likely 2/2 acute bleeding. Transfuse 2 units pRBCs and monitor H/H for response and stability. 10. Tobacco use-encouraged to quit smoking. This is imperative at this point. 11. Thrombocytopenia-adding to propensity to bleed and multiple areas of ecchymosis on exam. Holding blood thinners as above. DVT proph-SCDs Full Code Dispo-Suspect DC to SNF early next week. Pamela Moreno DO [facility] Hospitalist Continued [facility] stay due to: multiple IV medications needed, home environment unsafe for pt, other (acute care continues) Discharge planning: uncertain Consultants: Neuro-Dr. Denzel Blas Procedures: . Current Inpatient Medications: Current Inpatient Medications Medications (Trade) Dose Ordered Sig/Rosemary Route Start Time Stop Time Status Last Admin Dose Admin Acetaminophen (Tylenol Tab) 650 mg Q4H PRN PO 03/18/17 20:30 04/17/17 20:29 04/11/17 21:05 650 MG Miscellaneous Information (Order Awaiting Action) 1 ea QS N/A 03/19/17 00:00 04/18/17 00:00 04/03/17 16:00 1 EA Aspirin (Aspirin Chew) 81 mg DAILY PO 03/28/17 09:00 04/27/17 08:59 Future Hold 04/04/17 07:59 81 MG Lactulose (Chronulac Syrup) 30 gm Q6 PRN PO 03/30/17 08:30 04/29/17 08:29 04/07/17 09:30 30 GM Ipratropium Dighton (Atrovent 0.02% 0.5MG/2.5ML Neb) 0.5 mg Q4H PRN INH 04/01/17 07:30 05/01/17 07:29 04/04/17 10:45 0.5 MG Levalbuterol (Xopenex 1.25MG/ 0.5ML Neb) 1.25 mg Q4H PRN INH 04/01/17 07:30 05/01/17 07:29 04/04/17 10:45 1.25 MG Alprazolam (Xanax Tab) 1 mg Q8H PRN PO 04/01/17 19:00 04/27/17 18:59 04/11/17 21:05 1 MG Acetazolamide (Diamox Tab) 250 mg BID17 PO 04/04/17 20:00 05/04/17 19:59 04/13/17 08:30 250 MG Furosemide (Lasix Tab) 20 mg DAILY PO 04/05/17 08:00 05/05/17 07:59 04/13/17 08:30 20 MG Magnesium Oxide (Mag-Ox Tab) 400 mg QAM PO 04/06/17 08:00 05/06/17 07:59 04/13/17 08:29 400 MG Enteral Nutritional Formula (Boost) 1 can BIDM PO 04/06/17 17:00 05/06/17 16:59 04/13/17 08:29 1 CAN Heparin Sodium (Porcine) (Heparin Sq 5000 Unit/0.5ml) 5,000 unit Q8 SQ 04/07/17 14:00 05/07/17 13:59 04/13/17 06:18 5,000 UNIT Aspirin (Ecotrin Tab) 81 mg QAM PO 04/08/17 08:00 05/08/17 07:59 04/13/17 08:30 81 MG Clopidogrel Bisulfate (plAVix TAB) 75 mg QAM PO 04/07/17 13:00 05/07/17 12:59 04/13/17 08:30 75 MG Prednisone (PredniSONE TAB) 20 mg Taper DAILY PO 04/10/17 09:00 04/19/17 08:59 04/13/17 08:30 20 MG Ipratropium Dighton (Atrovent 0.02% 0.5MG/2.5ML Neb) 0.5 mg BIDR INH 04/09/17 20:00 05/01/17 19:59 04/13/17 06:51 0.5 MG Levalbuterol (Xopenex 1.25MG/ 0.5ML Neb) 1.25 mg BIDR INH 04/09/17 20:00 05/01/17 19:59 04/13/17 06:52 1.25 MG Amiodarone HCl (Cordarone Tab) 200 mg BID PO 04/10/17 21:00 05/10/17 20:59 04/13/17 08:30 200 MG Miscellaneous Information (Consult Glycemic Management Pharmacy) 1 ea UD PRN N/A 04/12/17 12:17 05/12/17 12:16 Insulin Aspart (novoLOG ASPART) SLIDING SCALE ACHS SC 04/12/17 16:15 05/12/17 16:14 04/12/17 21:00 3 UNITS Tamsulosin HCl (Flomax Cap) 0.4 mg HS PO 04/13/17 21:00 05/13/17 20:59
--- NOTE | 2017-04-13 12:57 | PROGRESS NOTE ---
DATE: 04/13/2017 FOLLOWUP VISIT SUBJECTIVE: The patient is a 71-year-old who has had a prolonged hospital stay. He has sustained multiple infarcts including the bilateral occipital lobe and frontal lobe of his brain. He has an ischemic cardiomyopathy with an estimated left ventricular ejection fraction of 30%-35%. He was started on amiodarone to suppress ventricular arrhythmias and probable paroxysmal atrial fibrillation in light of his embolic strokes. He is tolerating this medication and remained stable on the telemetry. He is having a lot of bruising and his hemoglobin has dropped to the point, where he is receiving blood transfusions. He also has had a drop in his platelet count. I agree with stopping his antiplatelet therapy for now and holding off on full anticoagulation until he recovers. OBJECTIVE: GENERAL: He is alert and oriented, sitting in a chair. VITAL SIGNS: Blood pressure is 110/60. Pulse is regular at 100 beats per minute. He is afebrile. HEENT: He is normocephalic. Pupils are equal and reactive to light. Extraocular muscles are intact bilaterally. NECK: The neck veins are flat. Carotids have good upstrokes bilaterally without bruits. Thyroid is nonpalpable. RESPIRATORY: Breath sounds equal bilaterally and clear to auscultation. CARDIOVASCULAR: Heart has a regular rhythm. Normal S1 and S2. No S3 or S4. No cardiac rubs or murmurs. GASTROINTESTINAL: Abdomen is soft and nontender without organomegaly. EXTREMITIES: Free of edema, digit clubbing, or cyanosis. NEUROLOGIC: Grossly intact. SKIN: There are diffuse contusions on his extremities. LYMPH NODES: Negative to palpation. IMPRESSION: 1. Multiple cerebral infarcts, suspicious for embolic events. 2. Ischemic cardiomyopathy. 3. Chronic obstructive pulmonary disease. 4. Thrombocytopenia. RECOMMENDATIONS: As outlined above, I agree with holding his antiplatelet medications as well as full anticoagulation until his platelet count rises and his hemoglobin stabilizes. From a cardiac standpoint, he is doing well.
--- NOTE | 2017-04-13 15:33 | PROGRESS NOTE ---
DATE: 04/13/2017 SUBJECTIVE: Collins actually looks better today. He received several units of blood. I am sure his hemoglobin has come up into a more normal range and hopefully, it will stay there. We had already talked over his case with Pamela Moreno DO and also Dr. Nuñez, and his anemia is probably multifactorial. GI blood loss may or may not be an issue and he does have thrombocytopenia of uncertain causation. Apparently, Hematology has seen him. They think he has a form of pancytopenia, even recommend a potential future bone marrow biopsy, so at this point, unless he has obvious evidence for GI blood loss, we are probably going to go ahead and anticoagulate him at least according to my discussion with Dr. Nuñez today. The CT scan shows no hemorrhagic transformation, so we are good to go at this point. We are going to stop the antiplatelet drugs at least for a week, watch the platelet count and see what happens. It is unlikely that the thrombocytopenia is due to the heparin as he has had the thrombocytopenia before the heparin was initiated apparently on admission. At this point, neurology is going to continue to follow him, but at a greater distance and we will see how things go over time. Right now on exam, he is brighter and looks more energetic and is sitting in a chair. He is not oriented to place or time, whereas he was yesterday. I am not sure this means much. He does have more function in the left arm and left leg. He still has a dense right hemianopsia and has a little neglect and bilaterally presented sensory stimuli on the left arm and leg. I will check him again tomorrow. JOSÉ MANUEL
[2017-04-13] MEDS: TAMSULOSIN HCL 0.4 MG CAP PO SCH (20:47)
[2017-04-14] VITALS (8 sets, daily range): BP systolic 123–139; BP diastolic 52–65; PULSE 86–120; TEMP 36.7–37.5; O2SAT 93–97
[2017-04-14] MEDS: INSULIN ASPART 100 UNITS/ML 3 ML PEN SC SCH ×4 (07:00→21:10)
[2017-04-14] MEDS: BOOST VANILLA PO SCH ×2 (07:30→16:53)
[2017-04-14] MEDS: IPRATROPIUM BROMIDE NEB SOLN 0.02% 2.5 ML VIAL INH SCH ×2 (07:30→19:42)
[2017-04-14] MEDS: LEVALBUTEROL 1.25MG/0.5ML NEB INH SCH ×2 (07:30→19:42)
[2017-04-14] MEDS: MAGNESIUM OXIDE 400 MG TAB PO SCH (11:24)
[2017-04-14] MEDS: AcetaZOLAMIDE 250 MG TAB PO SCH ×2 (11:24→16:53)
[2017-04-14] MEDS: AMIODARONE 200 MG TAB PO SCH ×2 (11:24→21:09)
[2017-04-14] MEDS: FUROSEMIDE 20 MG TAB PO SCH (11:24)
--- NOTE | 2017-04-14 12:53 | PROGRESS NOTE ---
DATE: 04/14/2017 I saw Meek today. He is pretty much the same as he was yesterday, he is a little more oriented. His right field cut still dense. His left arm and leg are much improved, and there is a minor drift to the left arm now, whereas several days ago was fairly prominent. Left leg movements are much improved as well. He still has a little neglect to bilaterally presented sensory stimuli on the left and is probably a mild very peripheral left field cut, it is hard to document completely by confrontational alone. At this point, he is off antiplatelet drugs and heparin in hopes that the thrombocytopenia will improve. I had the impression that anticoagulation was going to be started, but I think it is going to be a lag time until we see if his hemoglobin stabilizes post-transfusion. I will continue to see him, and at this point I do not think neurology has much more to offer beyond that which is being offered by cardiology in terms of deciding about anticoagulation.
--- NOTE | 2017-04-14 15:07 | Pharmacy Progress Note ---
Glycemic: Assessment & Plan Date of Service Apr 14, 2017. Assessment & Plan The patient is currently receiving 9 units of insulin per day. BSGs ranging 100 - 159 mg/dl over the past 24hrs. * Correctional Insulin: Novolog Correction per scale ACHS Goal Range: Low 110 mg/dL - High 140 mg/dL Correction Factor: 30 mg/dL/unit * Prandial insulin: Per carb ratio of 1 unit per 15 grams CHO consumed BSGs continue to improve, no changes needed to inpatient regimen at this time. Pharmacy will continue to monitor patient daily and write orders per [facility] inpatient glycemic control protocol. Thanks. * Please note that the plan above was derived based on current level of insulin resistance and hospital stress. These recommendations are appropriate for inpatient admission only. Plan of care upon discharge will need to be reassessed to avoid potential outpatient hypo/hyperglycemia.
--- NOTE | 2017-04-14 17:12 | DIAGNOSTIC IMAGING REPORT ---
CHEST ONE VIEW PORTABLE CLINICAL HISTORY: 71 years-old Male presenting with worsening airway sounds/gurgling, concern for aspiration. TECHNIQUE: Portable upright AP view of the chest was obtained. COMPARISON: 04/05/2017. FINDINGS: Atherosclerosis of aortic arch. Cardiac silhouette enlarged. Stable to slight interval increase in right basilar opacity. Radiolucency of the right apex consistent with large bullae. Left lung and pleural space essentially clear. Degenerative changes of the thoracic spine. Upper abdomen normal. IMPRESSION: 1. Increasing right basilar consolidation concerning for worsening pneumonia. This should be followed to resolution. 2. Emphysema. Electronically signed by: Hamzah Baird M.D. 04/14/2017 5:11 PM Dictated Date/Time: 04/14/2017 5:09 PM
--- NOTE | 2017-04-14 18:02 | Progress Note ---
Medicine Progress Note Date & Time of Visit: Apr 14, 2017 at 15:46. Subjective 71 yo M admitted with COPD exacerbation from PCP office, suffered a hypoxic event after noncompliance with BIPAP on 03/25 and developed ?seizure activity. He was treated with Ativan and subsequently intubated in the ICU. He remained vented from 03/25- and was successfully extubated. He was transferred to [facility] 03/31 and is doing well on nasal canula w BIPAP at night. He was noted to have worsening L -sided weakness and a repeat head CT confirmed acute infarct in bilateral occipital lobes and R frontal lobe. Neuro was consulted and added DAPT therapy and made additional recs for follow-up. He still has some LUE weakness but LLE weakness is improved/resolved. Working with PT. He continues to deny any SOB, chest pain, or any other pain anywhere. He denies any issues with swallowing and denies that food gets stuck in his esophagus on the modified diet currently. However, he is now having alot of gurgling and nurses are concerned for possible aspiration. Repeat CXR revealed worsening pneumonia. He was started on amio per Cards with improvement in heart rate to low 100s but still remains tachycardic. He is on no AV mary blockers including coreg or Toprol in setting of depressed EF. He became progressively anemic and required 2 units of blood with good response in H/H this am. Objective Last 8 Hrs Date Time Temp Pulse Resp B/P (MAP) Pulse Ox O2 Delivery O2 Flow Rate FiO2 04/14/17 13:45 120 04/14/17 12:26 Nasal Cannula 2.0 04/14/17 12:00 36.7 115 26 128/61 (83) 94 Nasal Cannula 2.0 04/14/17 08:25 37.5 116 22 126/52 (76) 95 Nasal Cannula 2.0 04/14/17 08:00 Nasal Cannula 2.0 Physical Exam: GEN: thin, elderly, frail, alert and appropriate. Appears generally weak. Upper airway sounds are noticeable. HEENT: NC/AT, pupils are equal and round bilaterally, normal sclerae, MMM, nasal canula in place and no respiratory distress. CARDIO: tachy rate, S1/2 heard without m/g/r,+ radial pulses bilaterally LUNGS: coarse breath sounds throughout ABD: soft, non-distended, no guarding. 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 SKIN: warm and dry, multiple areas of ecchymosis noted all down arms. Laboratory Results: 04/13/17 06:11 04/11/17 06:31 Test 03/18/17 00:00 03/18/17 17:25 03/18/17 20:14 03/19/17 00:53 Influenza Type A (RT-PCR) Neg for Influ A (NEG) Influenza Type A Antigen Neg for Influ A (NEG) Influenza Type B Antigen Neg for Influ B (NEG) Influenza Type B (RT-PCR) Neg for Influ B (NEG) Giant Platelets 1+ Polychromasia 1+ Peripheral Blood Smear Path Consult Lactic Acid Level 0.6 mmol/L (0.4-2.0) Absolute Reticulocyte Count 0.06 10^6/uL (0.02-0.10) Percent Reticulocyte Count 2.6 % (0.5-2.0) Ferritin 178.5 ng/ml (8.0-388.0) Vitamin B12 Level 559 pg/mL (211-911) Folate 10.95 ng/mL (>5.38) Test 03/20/17 05:43 03/23/17 07:22 03/23/17 10:47 03/24/17 10:25 Basophilic Stippling OCCASIONAL Iron Level 36 mcg/dl (35-175) Total Iron Binding Capacity 182 mcg/dl (250-450) Transferrin 123 mg/dl (200-360) Transferrin % Saturation 21 % (20-50) Prostate Specific Antigen 1.680 ng/ml (0.000-4.000) Urine Color YELLOW Urine Appearance CLEAR (CLEAR) Urine pH 7.5 (4.5-7.5) Urine Specific [place] 1.018 (1.000-1.030) Urine Protein NEG (NEG) Urine Glucose (UA) NEG (NEG) Urine Ketones NEG (NEG) Urine Occult Blood NEG (NEG) Urine Nitrite NEG (NEG) Urine Bilirubin NEG (NEG) Urine Urobilinogen NEG (NEG) Urine Leukocyte Esterase TRACE (NEG) Urine WBC (Auto) 1-5 /hpf (0-5) Urine RBC (Auto) 0-4 /hpf (0-4) Urine Hyaline Casts (Auto) 1-5 /lpf (0-5) Urine Epithelial Cells (Auto) >30 /lpf (0-5) Urine Bacteria (Auto) NEG (NEG) Urine Mucus PRESENT (NONE PRSENT) Urine Yeast (Auto) BUDDING (NONE PRSENT) Stool Occult Blood NEGATIVE (NEGATIVE) Test 03/25/17 04:53 03/25/17 16:07 03/28/17 05:11 03/28/17 05:16 Direct Bilirubin 0.1 mg/dl (0-0.2) Prothrombin Time 10.3 SECONDS (9.0-12.0) Prothromb Time International Ratio 1.0 (0.9-1.1) Nucleated RBC Absolute Count (auto) 0.02 K/uL (0-0) Nucleated Red Blood Cells % 0.5 % Large Platelets 1+ Tear Drop Cells 1+ Blood Gas Sample Site L Radial Bedside Blood Gas pH (LAB) 7.40 (7.35-7.45) Bedside Blood Gas pCO2 (LAB) 47 mmHg (35-46) Bedside Blood Gas pO2 (LAB) 74 mmHg (80-95) Bedside Blood Gas HCO3 (LAB) 29 meq/L (19-24) Bedside Blood Gas Total CO2 30 mEq/l (24-31) Bedside Blood Gas Base Excess (LAB) 4.0 meq/L (-9-1.8) Bedside Blood Gas O2 Saturation 95.0 % (90-95) Oxygen Delivery Device Ventilator Bedside Oxygen Rate (breaths/min) 12 Blood Gas Minute Ventilation 7.1 Bedside FiO2 30 % Blood Gas Tidal Volume 550 Blood Gas PEEP 5 Test 03/31/17 05:15 04/01/17 05:30 04/02/17 05:22 04/07/17 10:41 Activated Partial Thromboplast Time 26.2 SECONDS (21.0-31.0) Partial Thromboplastin Ratio 1.0 Estimated Average Glucose 91 mg/dl Hemoglobin A1c 4.8 % (4.5-5.6) Phosphorus Level 2.2 mg/dl (2.5-4.9) Prealbumin 22.4 mg/dl (20-40) Total Bilirubin 0.8 mg/dl (0.2-1) Aspartate Amino Transf (AST/SGOT) 26 U/L (15-37) Alanine Aminotransferase (ALT/SGPT) 76 U/L (12-78) Alkaline Phosphatase 64 U/L (45-117) Total Protein 6.3 gm/dl (6.4-8.2) Albumin 3.3 gm/dl (3.4-5.0) Globulin 3.0 gm/dl (2.5-4.0) Albumin/Globulin Ratio 1.1 (0.9-2) Test 04/07/17 10:42 04/07/17 11:22 04/09/17 05:55 04/09/17 15:54 Toxic Granulation 1+ Stomatocytes 1+ Arterial Blood pH 7.35 (7.35-7.45) Arterial Blood Partial Pressure CO2 61 mmHg (35-46) Arterial Blood Partial Pressure O2 113 mm/Hg (80-95) Arterial Blood HCO3 33 mmol/L (19-24) Arterial Blood Oxygen Saturation 97.7 % (90-95) Arterial Blood Base Excess 6.8 mEq/L (-9-1.8) Arterial Blood Gas Delivery 3 L Howard Test POS (POS) Red Blood Cell Morphology Unremarkable Troponin I 0.128 ng/ml (0-0.045) Test 04/10/17 05:56 04/11/17 06:31 04/13/17 06:11 04/14/17 16:39 Platelet Estimate DECREASED Anisocytosis PRESENT Immature Granulocyte % (Auto) 0.4 % White Blood Count 11.07 K/uL (4.8-10.8) Red Blood Count 2.51 M/uL (4.7-6.1) 3.42 M/uL (4.7-6.1) Hemoglobin 7.9 g/dL (14.0-18.0) Hematocrit 25.0 % (42-52) Mean Corpuscular Volume 99.6 fL (80-100) 95.6 fL (80-100) Mean Corpuscular Hemoglobin 31.5 pg (25-34) 31.9 pg (25-34) Mean Corpuscular Hemoglobin Concent 31.6 g/dl (32-36) 33.3 g/dl (32-36) Platelet Count 90 K/uL (130-400) Mean Platelet Volume 10.8 fL (7.4-10.4) 10.6 fL (7.4-10.4) Neutrophils (%) (Auto) 90.8 % Lymphocytes (%) (Auto) 4.7 % Monocytes (%) (Auto) 3.8 % Eosinophils (%) (Auto) 0.3 % Basophils (%) (Auto) 0.0 % Neutrophils # (Auto) 10.06 K/uL (1.4-6.5) Lymphocytes # (Auto) 0.52 K/uL (1.2-3.4) Monocytes # (Auto) 0.42 K/uL (0.11-0.59) Eosinophils # (Auto) 0.03 K/uL (0-0.5) Basophils # (Auto) 0.00 K/uL (0-0.2) Immature Granulocyte # (Auto) 0.04 K/uL (0.00-0.02) Hypochromasia PRESENT Poikilocytosis PRESENT Anion Gap 3.0 mmol/L (3-11) Est Creatinine Clear Calc Drug Dose 43.1 ml/min Estimated GFR () 68.4 Estimated GFR (Non- 59.0 BUN/Creatinine Ratio 28.7 (10-20) Calcium Level 8.0 mg/dl (8.5-10.1) Magnesium Level 2.4 mg/dl (1.8-2.4) RDW Standard Deviation 55.1 fL (36.4-46.3) RDW Coefficient of Variation 15.9 % (11.5-14.5) Bedside Glucose 160 mg/dl (70-99) Date/Time Source Procedure Growth Status 04/14/17 17:52 Blood Blood Culture Pending Ordered 03/25/17 09:20 Nasal MRSA DNA Surveillance Screen - Final Specimen Negative for MRSA by DNA Probe Complete 04/05/17 13:50 Sputum Expectorated Sputum Gram Stain - Final Complete 04/05/17 13:50 Sputum Culture - Final Aspergillus Fumigatus Complete 04/06/17 19:10 Urine , Clean Catch Urine Culture - Final NO GROWTH - LESS THAN 1,000 COLONIES/ML Complete Last 24 Hours Test 04/13/17 16:10 04/13/17 20:31 04/14/17 07:43 04/14/17 11:21 Bedside Glucose 110 mg/dl 143 mg/dl 121 mg/dl 157 mg/dl Assessment & Plan 71 yo M admitted with COPD exacerbation from PCP office, suffered a hypoxic event after noncompliance with BIPAP on 03/25 and developed ?seizure activity. He was treated with Ativan and subsequently intubated in the ICU. He remained vented from 03/25- and was successfully extubated. He was transferred to [facility] 03/31 and is doing well on nasal canula w BIPAP at night. He was noted to have worsening L -sided weakness and a repeat head CT confirmed acute infarct in bilateral occipital lobes and R frontal lobe. Neuro was consulted and added DAPT therapy and made additional recs for follow-up. He still has some LUE weakness but LLE weakness is improved/resolved. Working with PT. He continues to deny any SOB, chest pain, or any other pain anywhere. He denies any issues with swallowing and denies that food gets stuck in his esophagus on the modified diet currently. However, he is now having alot of gurgling and nurses are concerned for possible aspiration. Repeat CXR revealed worsening pneumonia. He was started on amio per Cards with improvement in heart rate to low 100s but still remains tachycardic. He is on no AV mary blockers including coreg or Toprol in setting of depressed EF. He became progressively anemic and required 2 units of blood with good response in H/H this am. 1. Stroke/multiple infarcts-questionable diagnosis of atrial arrhythmia at this time. Per Cards, in light of stroke and possible embolic phenomena, anticoagulation is necessary but per contraindications above this will be put on hold until later in the future. CT yesterday reveals no hemorrhagic conversion. Holding antiplatelets and anticoagulants at this time. Cont amio. Heart rate in low 100s. 2, Acute urinary retention-failed TOV with >800cc retained urine. Cabral replaced and should stay in per Urology 10-14 days with outpatient Urology followup. 3. Acute respiratory failure, hypoxic and hypercapnic.-was resolved but with gurgling and questionable aspiration repeat CXR was ordered revealing worsening PNA on the RLL. Covered with Unasyn and Vanc. Cont prednisone taper per pulm. Cont nightly BIPAP and PRN during the day as needed. Cont bronchodilator therapy. 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 4. COPD-dependent on home oxygen. Continues to actively smoke per family. He is not a candidate for LVRS 2/2 his low FEV1 of <20%. 5. Acute systolic heart failure seen after hypoxic event with elevated troponins. Was treated medically with heparin drip. Denies any chest pain today. Latest TTE shows an improved EF. Was on Toprol XL but this was stopped by Cards. He continues to do well on home diuretics including acetazolamide 250mg PO BID and Lasix 20mg PO daily. He remains euvolemic on exam. 6. Dysphagia-Video swallow study was completed earlier during the hospitalization revealing no evidence of aspiration. Recommendations were made by [employer] including slippery diet, GERD precautions and aspiration precautions. A Barium swallow study was also recommended to better assess esophageal dysfunction. With new concerns for aspiration will have speech re-evaluate him. He has had an intubation, seizure and a large stroke since the last video swallow and things may have changed. Aspiration may be contributing to higher heart rates, also. 7. Ambulatory dysfunction 2/2 deconditioning from prolonged hospitalization and ICU stay. cont PT/OT efforts. He will likely need to transition through rehab on his way home. Also, pt lives at home alone. Looking at dc early next week. 8. Ureteral calculus-7mm obstructing calculus present in distal right ureter noted on CT 03/23 and seen again on repeat KUB. Urology was consulted and considered stent, however, they would like pt to be optimized from a cardiopulmonary standpoint more before undergoing any procedure ideally. Pt is having no LUTS or flank pain currently. For now will have him follow-up with Urology as outpatient. 9. Anemia-likely multifactorial related to dilution, acute blood loss 2/2 daily phlebotomy and anemia of chronic disease. This has been indolent and is not likely 2/2 acute bleeding. Transfused 2 units pRBCs and will cont to monitor for stability. 10. Tobacco use-encouraged to quit smoking. This is imperative at this point. 11. Thrombocytopenia-adding to propensity to bleed and multiple areas of ecchymosis on exam. Holding blood thinners as above. DVT proph-SCDs Full Code Dispo-Suspect DC to SNF early next week. Pamela Moreno DO [facility] Hospitalist Continued [facility] stay due to: multiple IV medications needed, home environment unsafe for pt, other (acute care continues) Discharge planning: uncertain Consultants: Neuro-Dr. Denzel Blas Procedures: . Current Inpatient Medications: Current Inpatient Medications Medications (Trade) Dose Ordered Sig/Rosemary Route Start Time Stop Time Status Last Admin Dose Admin Acetaminophen (Tylenol Tab) 650 mg Q4H PRN PO 03/18/17 20:30 04/17/17 20:29 04/11/17 21:05 650 MG Miscellaneous Information (Order Awaiting Action) 1 ea QS N/A 03/19/17 00:00 04/18/17 00:00 04/03/17 16:00 1 EA Lactulose (Chronulac Syrup) 30 gm Q6 PRN PO 03/30/17 08:30 04/29/17 08:29 04/07/17 09:30 30 GM Ipratropium [place] (Atrovent 0.02% 0.5MG/2.5ML Neb) 0.5 mg Q4H PRN INH 04/01/17 07:30 05/01/17 07:29 04/04/17 10:45 0.5 MG Levalbuterol (Xopenex 1.25MG/ 0.5ML Neb) 1.25 mg Q4H PRN INH 04/01/17 07:30 05/01/17 07:29 04/04/17 10:45 1.25 MG Alprazolam (Xanax Tab) 1 mg Q8H PRN PO 04/01/17 19:00 04/27/17 18:59 04/11/17 21:05 1 MG Acetazolamide (Diamox Tab) 250 mg BID17 PO 04/04/17 20:00 05/04/17 19:59 04/14/17 11:24 250 MG Furosemide (Lasix Tab) 20 mg DAILY PO 04/05/17 08:00 05/05/17 07:59 04/14/17 11:24 20 MG Magnesium Oxide (Mag-Ox Tab) 400 mg QAM PO 04/06/17 08:00 05/06/17 07:59 04/14/17 11:24 400 MG Enteral Nutritional Formula (Boost) 1 can BIDM PO 04/06/17 17:00 05/06/17 16:59 04/14/17 07:30 1 CAN Prednisone (PredniSONE TAB) 20 mg Taper DAILY PO 04/10/17 09:00 04/19/17 08:59 04/14/17 11:23 20 MG Ipratropium [place] (Atrovent 0.02% 0.5MG/2.5ML Neb) 0.5 mg BIDR INH 04/09/17 20:00 05/01/17 19:59 04/14/17 07:30 0.5 MG Levalbuterol (Xopenex 1.25MG/ 0.5ML Neb) 1.25 mg BIDR INH 04/09/17 20:00 05/01/17 19:59 04/14/17 07:30 1.25 MG Amiodarone HCl (Cordarone Tab) 200 mg BID PO 04/10/17 21:00 05/10/17 20:59 04/14/17 11:24 200 MG Miscellaneous Information (Consult Glycemic Management Pharmacy) 1 ea UD PRN N/A 04/12/17 12:17 05/12/17 12:16 Insulin Aspart (novoLOG ASPART) SLIDING SCALE ACHS SC 04/12/17 16:15 05/12/17 16:14 04/14/17 13:31 2 UNITS Tamsulosin HCl (Flomax Cap) 0.4 mg HS PO 04/13/17 21:00 05/13/17 20:59 04/13/17 20:47 0.4 MG
[2017-04-14] MEDS ORDERED: VANCOMYCIN CONSULT ACTIVE PRN (18:15)
[2017-04-14] MEDS ORDERED: AMPICILLIN/SULBACTAM CONSULT ACTIVE PRN (18:15)
--- NOTE | 2017-04-14 18:40 | Cardiology Follow-Up ---
Subjective General Date of Service: Apr 14, 2017. Chief Complaint: follow up CM , sinus tachycaria , stroke Pt evaluation today including: conversation w/ patient, physical exam History of Present Illness The patient is a 71 year old male seen in follow up having taken over rounding for Dr Nuñez. Pt is comfortable. C/o fatigue, unchanged. Telemetry reveals sinus tachycardia 110-122 bpm that has persisted today. CXR concerning for new worsening pneumonia. Allergies Coded Allergies: POLLEN (Verified Allergy, Unknown, SEASONAL ALLERGIES, 03/18/17) Lactose Intolerance (Verified Adverse Reaction, Intermediate, GI SYMPTOMS , 03/18/17) Social History Smoking Status: Current Every Day Smoker Hx Tobacco Use In Past Year?: Yes (cigarettes 1 PPD ) Hx Alcohol Use - Type And Amou: Yes (patient will not say ) Hx Substance Use - Type And Am: No Problem List Medical Problems: (1) COPD exacerbation Status: Acute (2) Hypoxia Status: Acute (3) Pancytopenia Status: Acute (4) Pneumonia Status: Acute Physical Exam Vital Signs Last Vital Signs Documentation Date Time Temp Pulse Resp B/P (MAP) Pulse Ox O2 Delivery O2 Flow Rate FiO2 04/14/17 16:35 Nasal Cannula 2.0 04/14/17 16:08 37.2 114 26 137/62 (87) 93 04/12/17 20:36 30 Physical Exam Constitutional: Level of Distress: chronically ill Neck: supple Lungs: Auscultation: no wheezing, no rales/crackles Cardiovascular: Heart Auscultation: RRR, no murmurs, tachycardia Extremities: pertinent finding (+ diffuse subcutaneous is ecchymosis) Assessment and Plan Assessment and Plan Impression: 71-year-old male 1. Excess tachycardia, this may be due to his pneumonia, or perhaps recurrent anemia as he has required transfusion 2. He is on a paratrooper for amiodarone due to concerns that he may have occult atrial arrhythmias that would've explained to embolic stroke 3. Cardiomyopathy, 3 echo cardiac grams performed this admission, 03/19/17 ejection fraction was reportedly normal, on 03/26/17, moderate LV systolic dysfunction with ejection fraction in the range of 30-35% was reported, repeat echo on 04/01/17, described interval improvement with mild LV systolic dysfunction in the range of 45-50% Plan: I question if perhaps his embolic stroke could've been due to a left ventricular thrombus that occurred in the setting of left ventricular systolic dysfunction. He is not a candidate for anticoagulation given his anemia and thrombocytopenia with platelet count in the 78,000 range yesterday. I would cautiously add back to metoprolol succinate for improved heart rate control. CBC has been requested, and Dr. Moreno has brought his coverage for pneumonia. Laboratory Results Last 24 Hours Test 04/13/17 20:31 04/14/17 07:43 04/14/17 11:21 04/14/17 16:39 Bedside Glucose 143 mg/dl 121 mg/dl 157 mg/dl 160 mg/dl Test 04/14/17 18:25
[2017-04-14 18:43] LABS: HEMATOCRIT 36.8 % (42-52); HEMOGLOBIN 12.1 g/dL (14.0-18.0); MEAN CELL VOLUME 96.6 fL (80-100); MEAN CORPUSCULAR HEMOGLOBIN 31.8 pg (25-34); RED CELL DISTRIBUTION WIDTH CV 15.3 % (11.5-14.5); RED CELL DISTRIBUTION WIDTH SD 53.5 fL (36.4-46.3); WHITE BLOOD COUNT 14.34 K/uL (4.8-10.8)
[2017-04-14] MEDS: AMPICILLIN/SULBACTAM SOD INJ 3,000 MG in SODIUM CHLORIDE 0.9% 100ML 100 ML IV SCH ×2 (18:45→23:19)
[2017-04-14 18:56] LABS: MEAN CORPUSCULAR HGB CONC 32.9 g/dl (32-36); MEAN PLATELET VOLUME 10.9 fL (7.4-10.4); PLATELET COUNT 89 K/uL (130-400)
[2017-04-14] MEDS ORDERED: VANCOMYCIN INJ 1,250 MG in SODIUM CHLORIDE 0.9% 250ML 250 ML IV ONE (19:00)
[2017-04-14] MEDS ORDERED: METOPROLOL SUCC 25MG EXT REL TAB PO ONE (19:00)
--- NOTE | 2017-04-14 19:34 | Pharmacy Progress Note ---
Pharmacy Abx Initial Consult Date of Service Apr 14, 2017. Pharmacy Dosing Scope Date of Consult: 04/14/17 Consultation requested by: Dr. Moreno Pharmacy is consulted to initiate Vancomycin and Unasyn IV dosing therapy, order appropriate labs and adjust drug dose/frequency. Subjective The patient is a 71 year old male admitted on Mar 18, 2017 at 19:31. Objective Height (Feet): 5 Height (Inches): 9.00 Weight (Kilograms): 54.100 Vital Signs (Past 12Hrs) Vital Signs Past 12 Hours Date Time Temp Pulse Resp B/P (MAP) Pulse Ox O2 Delivery O2 Flow Rate FiO2 04/14/17 16:35 Nasal Cannula 2.0 04/14/17 16:08 37.2 114 26 137/62 (87) 93 Nasal Cannula 2.0 04/14/17 13:45 120 04/14/17 12:26 Nasal Cannula 2.0 04/14/17 12:00 36.7 115 26 128/61 (83) 94 Nasal Cannula 2.0 04/14/17 08:25 37.5 116 22 126/52 (76) 95 Nasal Cannula 2.0 04/14/17 08:00 Nasal Cannula 2.0 04/14/17 07:30 110 18 97 Nasal Cannula 3.0 Lab Results (24Hrs) Laboratory Tests (24 Hours) Test 04/14/17 18:25 White Blood Count 14.34 K/uL (4.8-10.8) H Micro Results Date/Time Source Procedure Growth Status 04/14/17 18:25 Blood Blood Culture Pending Received 04/14/17 18:22 Blood Blood Culture Pending Received 04/07/17 11:13 Blood Blood Culture - Final NO GROWTH Complete 04/07/17 10:42 Blood Blood Culture - Final NO GROWTH Complete 03/18/17 20:10 Blood Blood Culture - Final NO GROWTH Complete 03/18/17 20:07 Blood Blood Culture - Final NO GROWTH Complete 03/25/17 09:20 Nasal MRSA DNA Surveillance Screen - Final Specimen Negative for MRSA by DNA Probe Complete 04/05/17 13:50 Sputum Expectorated Sputum Gram Stain - Final Complete 04/05/17 13:50 Sputum Culture - Final Aspergillus Fumigatus Complete 03/21/17 13:30 Sputum Expectorated Sputum Gram Stain - Final Complete 03/21/17 13:30 Sputum Culture - Final Treva Albicans Complete 04/06/17 19:10 Urine , Clean Catch Urine Culture - Final NO GROWTH - LESS THAN 1,000 COLONIES/ML Complete 04/02/17 08:45 Urine,Catheterized Urine Culture - Final NO GROWTH - LESS THAN 1,000 COLONIES/ML Complete 03/23/17 10:47 Urine , Clean Catch Urine Culture - Final Treva Albicans Complete Risk Factors for Resistance * Hospitalization for 48 hours or more within the past 90 days * Current hospitalization > 5 days * Antimicrobial use within the last 90 days Assessment & Plan Assessment 71 year old male admitted 03/18 for COPD exacerbation. Pt was intubated in the ICU 03/25-03/30. CXR today revealed worsening pneumonia with suspicion of aspiration. He is being treated with both vanc and unasyn. Baseline Scr ~1.2 mg/dL, though renal function seems to fluctuate considerably. Blood cultures pending. Estimated pk parameters: ke=0.04, t1/2=17hrs Plan Vancomycin IV * Loading dose: 1250 mg (23 mg/kg) * Maintenance dose:750 mg IV (14 mg/kg) every 18 hours * Goal trough level for pneumonia : 15 to 20 mcg/mL * Trough level ordered for 04/17 @1730, prior to the fourth maintenance dose. * Dosing interval is very close to half life and will most likely need adjusted. Aggressive dosing chosen based on patient's status. Ampicillin/Sulbactam * Dosing based on Scr from 04/11 =1.2mg/dL, Crcl=43ml/min * Unasyn 3gm IV q 6 hours Pharmacy will continue to follow and will adjust dose/frequency as necessary. Thank you.
[2017-04-14] MEDS: TAMSULOSIN HCL 0.4 MG CAP PO SCH (21:09)
[2017-04-15] VITALS (8 sets, daily range): BP systolic 98–130; BP diastolic 57–67; PULSE 91–98; TEMP 36.6–37.4; O2SAT 94–96
[2017-04-15] MEDS: AMPICILLIN/SULBACTAM SOD INJ 3,000 MG in SODIUM CHLORIDE 0.9% 100ML 100 ML IV SCH ×4 (05:38→23:56)
[2017-04-15 06:36] LABS: HEMATOCRIT 31.6 % (42-52); HEMOGLOBIN 10.2 g/dL (14.0-18.0); MEAN CELL VOLUME 97.5 fL (80-100); MEAN CORPUSCULAR HEMOGLOBIN 31.5 pg (25-34); MEAN CORPUSCULAR HGB CONC 32.3 g/dl (32-36); RED CELL DISTRIBUTION WIDTH CV 15.2 % (11.5-14.5); RED CELL DISTRIBUTION WIDTH SD 53.6 fL (36.4-46.3); WHITE BLOOD COUNT 10.07 K/uL (4.8-10.8)
[2017-04-15 06:39] LABS: MEAN PLATELET VOLUME 10.4 fL (7.4-10.4); PLATELET COUNT 84 K/uL (130-400)
[2017-04-15] MEDS: INSULIN ASPART 100 UNITS/ML 3 ML PEN SC SCH ×4 (07:00→20:57)
[2017-04-15 07:12] LABS: CALCIUM 8.1 mg/dl (8.5-10.1); CREATININE 1.37 mg/dl (0.60-1.40); POTASSIUM 4.2 mmol/L (3.5-5.1)
[2017-04-15] MEDS: IPRATROPIUM BROMIDE NEB SOLN 0.02% 2.5 ML VIAL INH SCH ×2 (07:30→20:00)
[2017-04-15] MEDS: LEVALBUTEROL 1.25MG/0.5ML NEB INH SCH ×2 (07:30→20:00)
[2017-04-15] MEDS: BOOST VANILLA PO SCH ×2 (07:30→18:26)
[2017-04-15] MEDS: FUROSEMIDE 20 MG TAB PO SCH (09:30)
[2017-04-15] MEDS: AMIODARONE 200 MG TAB PO SCH ×2 (09:30→20:58)
[2017-04-15] MEDS: MAGNESIUM OXIDE 400 MG TAB PO SCH (09:30)
[2017-04-15] MEDS: METOPROLOL SUCC 25MG EXT REL TAB PO SCH (09:31)
[2017-04-15] MEDS: AcetaZOLAMIDE 250 MG TAB PO SCH ×2 (09:31→18:21)
--- NOTE | 2017-04-15 11:29 | Pharmacy Progress Note ---
Pharmacy Glycemic Sign Off Nt Date of Service Apr 15, 2017. Assessment & Plan ASSESSMENT: * Pharmacy was re-consulted by Dr. Moreno on 04/12/17 for glycemic control and to write orders per [facility] inpatient glycemic control protocol. * Major changes made by pharmacy to antidiabetic regimen include: * Added carb coverage for small Prednisone taper * Patient has been receiving/requiring 9 units of insulin per day for adequate glycemic control * BSGs ranging 103 - 160 mg/dl * Do not anticipate further changes in patient status that would quickly deteriorate glycemic control PLAN FOR INPATIENT GLYCEMIC CONTROL: No changes needed to current regimen. * Continue NovoLog per scale ACHS/Q6hrs while NPO * Goal range = 110 - 140 mg/dl * CF = 30 mg/dl/unit * CR = 1 unit for ever 15 g CHO consumed * Spoke with Dr. Moreno - remove carb coverage in Novolog ACHS when prednisone discontinued. * Pharmacy is signing off of glycemic consult and will no longer be making adjustments to inpatient regimen. Please feel free to re-consult if needed. Thank you.
[2017-04-15] MEDS ORDERED: VANCOMYCIN INJ 750 MG in SODIUM CHLORIDE 0.9% 250ML 250 ML IV SCH (12:00)
--- NOTE | 2017-04-15 12:27 | Cardiology Follow-Up ---
Subjective General Date of Service: Apr 15, 2017. Chief Complaint: follow up CM , sinus tachycaria , stroke Pt evaluation today including: conversation w/ patient, physical exam History of Present Illness The patient is a 71 year old male seen in follow-up. Patient looking a little stronger today. His resting heart rate on telemetry yesterday have been sinus tachycardia 122 bpm. This is down to 99 bpm having tolerated his initial 2 doses of metoprolol succinate. Hemoglobin assessed last evening and again this morning were stable. His platelet count remains low , but stable at 84,000. Allergies Coded Allergies: POLLEN (Verified Allergy, Unknown, SEASONAL ALLERGIES, 03/18/17) Lactose Intolerance (Verified Adverse Reaction, Intermediate, GI SYMPTOMS , 03/18/17) Social History Smoking Status: Current Every Day Smoker Hx Tobacco Use In Past Year?: Yes (cigarettes 1 PPD ) Hx Alcohol Use - Type And Amou: Yes (patient will not say ) Hx Substance Use - Type And Am: No Problem List Medical Problems: (1) COPD exacerbation Status: Acute (2) Hypoxia Status: Acute (3) Pancytopenia Status: Acute (4) Pneumonia Status: Acute Physical Exam Vital Signs Last Vital Signs Documentation Date Time Temp Pulse Resp B/P (MAP) Pulse Ox O2 Delivery O2 Flow Rate FiO2 04/15/17 12:12 36.7 93 22 98/57 (71) 94 Nasal Cannula 2.0 04/12/17 20:36 30 Physical Exam Constitutional: Level of Distress: chronically ill Neck: supple Lungs: Auscultation: no wheezing, no rales/crackles Cardiovascular: Heart Auscultation: RRR, no murmurs Extremities: pertinent finding (+ diffuse subcutaneous is ecchymosis) Assessment and Plan Assessment and Plan Impression: 71-year-old male 1. Sinus tachycardia, perhaps physiologic due to his underlying medical problems including pneumonia 2. He is on empiric amiodarone due to concerns that he may have occult atrial arrhythmias that would explain embolic stroke 3. Cardiomyopathy, 3 echo echocardiograms performed this admission, 03/19/17 ejection fraction was reportedly normal, on 03/26/17, moderate LV systolic dysfunction with ejection fraction in the range of 30-35% was reported, repeat echo on 04/01/17, described interval improvement with mild LV systolic dysfunction in the range of 45-50% Plan: I question if perhaps his embolic stroke could have been due to a left ventricular thrombus that occurred in the setting of left ventricular systolic dysfunction. He is not a candidate for anticoagulation given his anemia and thrombocytopenia and anemia. Continue antibiotics for anemia. Monitor for volume overload from IVF with antibiotic administration. Laboratory Results Last 24 Hours Test 04/14/17 16:39 04/14/17 18:25 04/14/17 21:06 04/15/17 06:16 Bedside Glucose 160 mg/dl 157 mg/dl White Blood Count 14.34 K/uL 10.07 K/uL Red Blood Count 3.81 M/uL 3.24 M/uL Hemoglobin 12.1 g/dL 10.2 g/dL Hematocrit 36.8 % 31.6 % Mean Corpuscular Volume 96.6 fL 97.5 fL Mean Corpuscular Hemoglobin 31.8 pg 31.5 pg Mean Corpuscular Hemoglobin Concent 32.9 g/dl 32.3 g/dl RDW Standard Deviation 53.5 fL 53.6 fL RDW Coefficient of Variation 15.3 % 15.2 % Platelet Count 89 K/uL 84 K/uL Mean Platelet Volume 10.9 fL 10.4 fL Sodium Level 138 mmol/L Potassium Level 4.2 mmol/L Chloride Level 106 mmol/L Carbon Dioxide Level 29 mmol/L Anion Gap 3.0 mmol/L Blood Urea Nitrogen 42 mg/dl Creatinine 1.37 mg/dl Est Creatinine Clear Calc Drug Dose 38.6 ml/min Estimated GFR () 58.9 Estimated GFR (Non- 50.8 BUN/Creatinine Ratio 30.6 Random Glucose 104 mg/dl Calcium Level 8.1 mg/dl Magnesium Level 2.3 mg/dl Test 04/15/17 06:45 04/15/17 11:24 Bedside Glucose 103 mg/dl 173 mg/dl
--- NOTE | 2017-04-15 15:59 | PROGRESS NOTE ---
DATE: 04/15/2017 Meek actually looks even better than he did yesterday. He is talking on the phone to his son. He knows where he is. He is still off in terms of time and year, but is moving much better. His left side has less drift and the left leg is working well and I think his right field cut is actually improved and is not as dense in the periphery, particularly inferiorly. He still has a neglect of bilaterally presented sensory stimuli on the left, but now recognizes the left hand more readily and has very minimal left field cut that I can document by confrontation. I read Dr. Amador's note. I agreed this man because of his anemia and thrombocytopenia and he is really not an anticoagulation candidate. We never caught any atrial fibrillation despite prolonged monitoring and he is on amiodarone. I agree with the theory that he may have had a laminated thrombus in his left ventricle due to his transient worsening of left ventricular function and may have thrown emboli from that source. At present, however, the echo does not show any evidence for intracardiac source of emboli and frankly, all I would do in this setting would be to try aspirin and Plavix or conceivably a single agent. All of this, however, is contingent on how well his platelet count does and right now, it is moving upwards slowly and it is up to 84,000 and I think we need to wait a few more days and see how things are going. If it stays in the low 100,000s, then I think a single antiplatelet agent either Plavix or aspirin would be adequate in this setting. I am going to see him episodically now. I will take a look at him on Sunday and check his labs and at this point, neurology is going to gradually withdraw from the case. JOSÉ MANUEL
[2017-04-15] MEDS ORDERED: NURSING VERBAL MED ORDER ONE (19:00)
--- NOTE | 2017-04-15 20:28 | Progress Note ---
Medicine Progress Note Date & Time of Visit: Apr 15, 2017 at 20:03. Subjective 71 yo M with multiple medical problems including worsening pneumonia with question of aspiration. He was seen by Speech Path who made recommendations on a diet for him. He continues to deny any symptoms and family members are mentioning that he occasionally hallucinates. He reports to me that he didn't know he had a stroke. Considered a poor anticoagulation candidate who is off blood thinners with anemia and thrombocytopenia. Objective Last 8 Hrs Date Time Temp Pulse Resp B/P (MAP) Pulse Ox O2 Delivery O2 Flow Rate FiO2 04/15/17 16:08 Nasal Cannula 2.0 04/15/17 16:06 37.4 98 18 115/58 (77) 96 Room Air 04/15/17 12:12 36.7 93 22 98/57 (71) 94 Nasal Cannula 2.0 Physical Exam: GEN: thin, elderly, frail, alert and appropriate. Appears generally weak. HEENT: NC/AT, pupils are equal and round bilaterally, normal sclerae, MMM, nasal canula in place and no respiratory distress. CARDIO: reg rate, S1/2 heard without m/g/r,+ radial pulses bilaterally LUNGS: coarse breath sounds throughout ABD: soft, non-distended, no guarding. +BS EXTREMITY: RP and DP palpable 2+ bilat, no LE swelling or edema, extremities are warm and well-perfused NEURO: CN 2-12 intact grossly, sensation intact throughout MSK: LUE: 5/5 biceps, 5/5 triceps, steel sampler strength intact, finger spread intact RUE: 5/5 throughout, defense attorney strength intact LLE: 5/5 hip flexion/extension, 5/5 knee flexion/extension, 5/5 dorsi and plantarflexion RLE: 5/5 throughout. SKIN: warm and dry, multiple areas of ecchymosis noted all down arms-appear to be healing Laboratory Results: 04/15/17 06:16 04/15/17 06:16 Test 03/18/17 00:00 03/18/17 17:25 03/18/17 20:14 03/19/17 00:53 Influenza Type A (RT-PCR) Neg for Influ A (NEG) Influenza Type A Antigen Neg for Influ A (NEG) Influenza Type B Antigen Neg for Influ B (NEG) Influenza Type B (RT-PCR) Neg for Influ B (NEG) Giant Platelets 1+ Polychromasia 1+ Peripheral Blood Smear Path Consult Lactic Acid Level 0.6 mmol/L (0.4-2.0) Absolute Reticulocyte Count 0.06 10^6/uL (0.02-0.10) Percent Reticulocyte Count 2.6 % (0.5-2.0) Ferritin 178.5 ng/ml (8.0-388.0) Vitamin B12 Level 559 pg/mL (211-911) Folate 10.95 ng/mL (>5.38) Test 03/20/17 05:43 03/23/17 07:22 03/23/17 10:47 03/24/17 10:25 Basophilic Stippling OCCASIONAL Iron Level 36 mcg/dl (35-175) Total Iron Binding Capacity 182 mcg/dl (250-450) Transferrin 123 mg/dl (200-360) Transferrin % Saturation 21 % (20-50) Prostate Specific Antigen 1.680 ng/ml (0.000-4.000) Urine Color YELLOW Urine Appearance CLEAR (CLEAR) Urine pH 7.5 (4.5-7.5) Urine Specific [place] 1.018 (1.000-1.030) Urine Protein NEG (NEG) Urine Glucose (UA) NEG (NEG) Urine Ketones NEG (NEG) Urine Occult Blood NEG (NEG) Urine Nitrite NEG (NEG) Urine Bilirubin NEG (NEG) Urine Urobilinogen NEG (NEG) Urine Leukocyte Esterase TRACE (NEG) Urine WBC (Auto) 1-5 /hpf (0-5) Urine RBC (Auto) 0-4 /hpf (0-4) Urine Hyaline Casts (Auto) 1-5 /lpf (0-5) Urine Epithelial Cells (Auto) >30 /lpf (0-5) Urine Bacteria (Auto) NEG (NEG) Urine Mucus PRESENT (NONE PRSENT) Urine Yeast (Auto) BUDDING (NONE PRSENT) Stool Occult Blood NEGATIVE (NEGATIVE) Test 03/25/17 04:53 03/25/17 16:07 03/28/17 05:11 03/28/17 05:16 Direct Bilirubin 0.1 mg/dl (0-0.2) Prothrombin Time 10.3 SECONDS (9.0-12.0) Prothromb Time International Ratio 1.0 (0.9-1.1) Nucleated RBC Absolute Count (auto) 0.02 K/uL (0-0) Nucleated Red Blood Cells % 0.5 % Large Platelets 1+ Tear Drop Cells 1+ Blood Gas Sample Site L Radial Bedside Blood Gas pH (LAB) 7.40 (7.35-7.45) Bedside Blood Gas pCO2 (LAB) 47 mmHg (35-46) Bedside Blood Gas pO2 (LAB) 74 mmHg (80-95) Bedside Blood Gas HCO3 (LAB) 29 meq/L (19-24) Bedside Blood Gas Total CO2 30 mEq/l (24-31) Bedside Blood Gas Base Excess (LAB) 4.0 meq/L (-9-1.8) Bedside Blood Gas O2 Saturation 95.0 % (90-95) Oxygen Delivery Device Ventilator Bedside Oxygen Rate (breaths/min) 12 Blood Gas Minute Ventilation 7.1 Bedside FiO2 30 % Blood Gas Tidal Volume 550 Blood Gas PEEP 5 Test 03/31/17 05:15 04/01/17 05:30 04/02/17 05:22 04/07/17 10:41 Activated Partial Thromboplast Time 26.2 SECONDS (21.0-31.0) Partial Thromboplastin Ratio 1.0 Estimated Average Glucose 91 mg/dl Hemoglobin A1c 4.8 % (4.5-5.6) Phosphorus Level 2.2 mg/dl (2.5-4.9) Prealbumin 22.4 mg/dl (20-40) Total Bilirubin 0.8 mg/dl (0.2-1) Aspartate Amino Transf (AST/SGOT) 26 U/L (15-37) Alanine Aminotransferase (ALT/SGPT) 76 U/L (12-78) Alkaline Phosphatase 64 U/L (45-117) Total Protein 6.3 gm/dl (6.4-8.2) Albumin 3.3 gm/dl (3.4-5.0) Globulin 3.0 gm/dl (2.5-4.0) Albumin/Globulin Ratio 1.1 (0.9-2) Test 04/07/17 10:42 04/07/17 11:22 04/09/17 05:55 04/09/17 15:54 Toxic Granulation 1+ Stomatocytes 1+ Arterial Blood pH 7.35 (7.35-7.45) Arterial Blood Partial Pressure CO2 61 mmHg (35-46) Arterial Blood Partial Pressure O2 113 mm/Hg (80-95) Arterial Blood HCO3 33 mmol/L (19-24) Arterial Blood Oxygen Saturation 97.7 % (90-95) Arterial Blood Base Excess 6.8 mEq/L (-9-1.8) Arterial Blood Gas Delivery 3 L Howard Test POS (POS) Red Blood Cell Morphology Unremarkable Troponin I 0.128 ng/ml (0-0.045) Test 04/10/17 05:56 04/11/17 06:31 04/15/17 06:16 04/15/17 16:38 Platelet Estimate DECREASED Anisocytosis PRESENT Immature Granulocyte % (Auto) 0.4 % White Blood Count 11.07 K/uL (4.8-10.8) Red Blood Count 2.51 M/uL (4.7-6.1) 3.24 M/uL (4.7-6.1) Hemoglobin 7.9 g/dL (14.0-18.0) Hematocrit 25.0 % (42-52) Mean Corpuscular Volume 99.6 fL (80-100) 97.5 fL (80-100) Mean Corpuscular Hemoglobin 31.5 pg (25-34) 31.5 pg (25-34) Mean Corpuscular Hemoglobin Concent 31.6 g/dl (32-36) 32.3 g/dl (32-36) Platelet Count 90 K/uL (130-400) Mean Platelet Volume 10.8 fL (7.4-10.4) 10.4 fL (7.4-10.4) Neutrophils (%) (Auto) 90.8 % Lymphocytes (%) (Auto) 4.7 % Monocytes (%) (Auto) 3.8 % Eosinophils (%) (Auto) 0.3 % Basophils (%) (Auto) 0.0 % Neutrophils # (Auto) 10.06 K/uL (1.4-6.5) Lymphocytes # (Auto) 0.52 K/uL (1.2-3.4) Monocytes # (Auto) 0.42 K/uL (0.11-0.59) Eosinophils # (Auto) 0.03 K/uL (0-0.5) Basophils # (Auto) 0.00 K/uL (0-0.2) Immature Granulocyte # (Auto) 0.04 K/uL (0.00-0.02) Hypochromasia PRESENT Poikilocytosis PRESENT RDW Standard Deviation 53.6 fL (36.4-46.3) RDW Coefficient of Variation 15.2 % (11.5-14.5) Anion Gap 3.0 mmol/L (3-11) Est Creatinine Clear Calc Drug Dose 38.6 ml/min Estimated GFR () 58.9 Estimated GFR (Non- 50.8 BUN/Creatinine Ratio 30.6 (10-20) Calcium Level 8.1 mg/dl (8.5-10.1) Magnesium Level 2.3 mg/dl (1.8-2.4) Bedside Glucose 109 mg/dl (70-99) Date/Time Source Procedure Growth Status 04/14/17 18:25 Blood Blood Culture Pending Received 04/14/17 20:30 Nasal MRSA DNA Surveillance Screen - Final Specimen Negative for MRSA by DNA Probe Complete 04/14/17 19:40 Sputum Expectorated Sputum Gram Stain - Final Resulted 04/14/17 19:40 Sputum Expectorated Sputum Sputum Culture - Preliminary MODERATE NORMAL GABE Present, Final ... Resulted 04/06/17 19:10 Urine , Clean Catch Urine Culture - Final NO GROWTH - LESS THAN 1,000 COLONIES/ML Complete Last 24 Hours Test 04/14/17 21:06 04/15/17 06:16 04/15/17 06:45 04/15/17 11:24 Bedside Glucose 157 mg/dl 103 mg/dl 173 mg/dl White Blood Count 10.07 K/uL Red Blood Count 3.24 M/uL Hemoglobin 10.2 g/dL Hematocrit 31.6 % Mean Corpuscular Volume 97.5 fL Mean Corpuscular Hemoglobin 31.5 pg Mean Corpuscular Hemoglobin Concent 32.3 g/dl RDW Standard Deviation 53.6 fL RDW Coefficient of Variation 15.2 % Platelet Count 84 K/uL Mean Platelet Volume 10.4 fL Sodium Level 138 mmol/L Potassium Level 4.2 mmol/L Chloride Level 106 mmol/L Carbon Dioxide Level 29 mmol/L Anion Gap 3.0 mmol/L Blood Urea Nitrogen 42 mg/dl Creatinine 1.37 mg/dl Est Creatinine Clear Calc Drug Dose 38.6 ml/min Estimated GFR () 58.9 Estimated GFR (Non- 50.8 BUN/Creatinine Ratio 30.6 Random Glucose 104 mg/dl Calcium Level 8.1 mg/dl Magnesium Level 2.3 mg/dl Test 04/15/17 16:38 Bedside Glucose 109 mg/dl Date/Time Source Procedure Growth Status 04/14/17 20:30 Nasal MRSA DNA Surveillance Screen - Final Specimen Negative for MRSA by DNA Probe Complete Assessment & Plan 71 yo M with multiple medical problems including worsening pneumonia with question of aspiration. He was seen by Speech Path who made recommendations on a diet for him. He continues to deny any symptoms and family members are mentioning that he occasionally hallucinates. He reports to me that he didn't know he had a stroke. Considered a poor anticoagulation candidate who is off blood thinners with anemia and thrombocytopenia. 1. Chronic respiratory failure-cont oxygen supplementation in setting of severe COPD. 2. HAP 2/2 poss aspiration-worsening infiltrate on xray yesterday. Speech path reevaluated and made diet recs. Cont aspiration precautions. MRSA repeat was negative and clinically improved so vanc was stopped. Cont Unasyn. Cont prednisone taper per pulm. Cont nightly BIPAP and PRN during the day as needed. Cont bronchodilator therapy. 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 3. Stroke/multiple infarcts-questionable diagnosis of atrial arrhythmia at this time but patient a poor anticoagulation candidate. Also had temporary poor EF which improved so there was also an increased chance of LV thrombus. Repeat head CT one week post-stroke was negative for hemorrhagic conversion. Cont amio. 4. Acute urinary retention-failed TOV with >800cc retained urine. Cabral replaced and should stay in per Urology 10-14 days with outpatient Urology followup. 5. COPD-dependent on home oxygen. Continues to actively smoke per family. He is not a candidate for LVRS 2/2 his low FEV1 of <20%. 6. Acute systolic heart failure seen after hypoxic event with elevated troponins. Was treated medically with heparin drip. Denies any chest pain today. Latest TTE shows an improved EF. He continues to do well on home diuretics including acetazolamide 250mg PO BID and Lasix 20mg PO daily. He remains euvolemic on exam. 7. Dysphagia-diet mod recs made by Speech today. Repeat video swallow study scheduled for . 8. Ambulatory dysfunction 2/2 deconditioning from prolonged hospitalization and ICU stay. Cont PT/OT efforts. Plan for SNF at discharge. 9. Ureteral calculus-7mm obstructing calculus present in distal right ureter noted on CT 03/23 and seen again on repeat KUB. Urology was consulted and considered stent, however, they would like pt to be optimized from a cardiopulmonary standpoint more before undergoing any procedure ideally. Pt is having no LUTS or flank pain currently. For now will have him follow-up with Urology as outpatient. 10. Anemia-likely multifactorial related to dilution, acute blood loss 2/2 daily phlebotomy and anemia of chronic disease. This has been indolent and is not likely 2/2 acute bleeding. Transfused 2 units pRBCs and has been stable since with no evidence of bleeding. 11. Tobacco use-encouraged to quit smoking. This is imperative at this point. 12. Thrombocytopenia-adding to propensity to bleed and multiple areas of ecchymosis on exam. Holding blood thinners as above. Followup with Hematology as outpatient. DVT proph-SCDs Full Code Dispo-Suspect DC to SNF early next week. Pamela Moreno DO [facility] Hospitalist Continued [facility] stay due to: multiple IV medications needed, home environment unsafe for pt, other (acute care continues) Discharge planning: uncertain Consultants: Neuro-Dr. Denzel Blas Procedures: . Current Inpatient Medications: Current Inpatient Medications Medications (Trade) Dose Ordered Sig/Rosemary Route Start Time Stop Time Status Last Admin Dose Admin Acetaminophen (Tylenol Tab) 650 mg Q4H PRN PO 03/18/17 20:30 04/17/17 20:29 04/11/17 21:05 650 MG Miscellaneous Information (Order Awaiting Action) 1 ea QS N/A 03/19/17 00:00 04/18/17 00:00 04/03/17 16:00 1 EA Lactulose (Chronulac Syrup) 30 gm Q6 PRN PO 03/30/17 08:30 04/29/17 08:29 04/07/17 09:30 30 GM Ipratropium [place] (Atrovent 0.02% 0.5MG/2.5ML Neb) 0.5 mg Q4H PRN INH 04/01/17 07:30 05/01/17 07:29 04/04/17 10:45 0.5 MG Levalbuterol (Xopenex 1.25MG/ 0.5ML Neb) 1.25 mg Q4H PRN INH 04/01/17 07:30 05/01/17 07:29 04/04/17 10:45 1.25 MG Alprazolam (Xanax Tab) 1 mg Q8H PRN PO 04/01/17 19:00 04/27/17 18:59 04/11/17 21:05 1 MG Acetazolamide (Diamox Tab) 250 mg BID17 PO 04/04/17 20:00 05/04/17 19:59 04/15/17 18:21 250 MG Furosemide (Lasix Tab) 20 mg DAILY PO 04/05/17 08:00 05/05/17 07:59 04/15/17 09:30 20 MG Magnesium Oxide (Mag-Ox Tab) 400 mg QAM PO 04/06/17 08:00 05/06/17 07:59 04/15/17 09:30 400 MG Enteral Nutritional Formula (Boost) 1 can BIDM PO 04/06/17 17:00 05/06/17 16:59 04/15/17 18:26 1 CAN Prednisone (PredniSONE TAB) 20 mg Taper DAILY PO 04/10/17 09:00 04/19/17 08:59 04/15/17 09:30 20 MG Ipratropium [place] (Atrovent 0.02% 0.5MG/2.5ML Neb) 0.5 mg BIDR INH 04/09/17 20:00 05/01/17 19:59 04/15/17 07:30 0.5 MG Levalbuterol (Xopenex 1.25MG/ 0.5ML Neb) 1.25 mg BIDR INH 04/09/17 20:00 05/01/17 19:59 04/15/17 07:30 1.25 MG Amiodarone HCl (Cordarone Tab) 200 mg BID PO 04/10/17 21:00 05/10/17 20:59 04/15/17 09:30 200 MG Insulin Aspart (novoLOG ASPART) SLIDING SCALE ACHS SC 04/12/17 16:15 05/12/17 16:14 04/15/17 18:30 5 UNITS Tamsulosin HCl (Flomax Cap) 0.4 mg HS PO 04/13/17 21:00 05/13/17 20:59 04/14/17 21:09 0.4 MG Ampicillin Sodium/ Sulbactam Sodium (Consult) 1 ea UD PRN N/A 04/14/17 18:15 05/14/17 18:14 Ampicillin Sodium/ Sulbactam Sodium 3000 mg/Sodium Chloride 108 ml @ 216 mls/hr Q6H IV 04/14/17 18:30 04/21/17 18:29 04/15/17 18:20 216 MLS/HR Metoprolol Succinate (Toprol Xl Tab) 25 mg QAM PO 04/15/17 09:00 05/15/17 08:59 04/15/17 09:31 25 MG Guaifenesin (Mucinex Contr Rel Tab) 600 mg Q12 PO 04/15/17 21:00 05/15/17 20:59
[2017-04-15] MEDS: TAMSULOSIN HCL 0.4 MG CAP PO SCH (20:58)
--- NOTE | 2017-04-15 21:36 | Progress Note ---
Post ICU Progress Note Date & Time Apr 15, 2017 at 21:33 Vital Signs Vital Signs Past 12 Hours Date Time Temp Pulse Resp B/P (MAP) Pulse Ox O2 Delivery O2 Flow Rate FiO2 04/15/17 20:33 93 18 94 Nasal Cannula 2.0 04/15/17 19:26 37.0 97 20 130/61 (84) 96 Nasal Cannula 2.0 04/15/17 16:08 Nasal Cannula 2.0 04/15/17 16:06 37.4 98 18 115/58 (77) 96 Room Air 04/15/17 12:12 36.7 93 22 98/57 (71) 94 Nasal Cannula 2.0 04/15/17 12:00 Nasal Cannula 2.0 Notes Mental Status: see Notes (Sleeping) Nausea / Vomiting: adequately controlled, improving with treatment Pain: adequately controlled Airway Patency, RR, SpO2: stable & adequate BP & HR: see Notes Patient is a 71-year-old male recently admitted to the ICU for respiratory distress requiring intubation. He was successfully extubated the BiPAP. He was subsequently transferred out of the ICU. His hospital stay was complicated by a RIGHT-sided CVA on 04/07. He has had improvement of his LEFT sided deficits per documentation. Patient is planned to transfer to alf facility early this week. Patient is sleepy during evaluation and unable to contribute, however he is resting comfortably. Consider outpatient follow up in 1 to 2 weeks with: Per primary team. Repeat imaging needed: Per primary team. Follow up cultures: N/A Reviewed progress notes, labs, and inpatient medication list Continue current management Additional recommendations: None at this time. Thank you for allowing us to participate in the care of this patient. At this time, Critical Care Services will sign off on patient's care. Please feel free to reconsult as needed. Consults & Procedures Consultants: neurology. Procedures: none today.
[2017-04-15] MEDS: GUAIFENESIN 600 MG TABCR PO SCH (23:44)
[2017-04-16] VITALS (8 sets, daily range): BP systolic 99–123; BP diastolic 50–66; PULSE 88–106; TEMP 36.7–37.5; O2SAT 93–100
[2017-04-16] MEDS: AMPICILLIN/SULBACTAM SOD INJ 3,000 MG in SODIUM CHLORIDE 0.9% 100ML 100 ML IV SCH ×3 (05:53→18:15)
[2017-04-16] MEDS: IPRATROPIUM BROMIDE NEB SOLN 0.02% 2.5 ML VIAL INH SCH ×2 (07:16→18:38)
[2017-04-16] MEDS: LEVALBUTEROL 1.25MG/0.5ML NEB INH SCH ×2 (07:16→18:38)
[2017-04-16 07:22] LABS: CREATININE 1.43 mg/dl (0.60-1.40)
[2017-04-16] MEDS: BOOST VANILLA PO SCH ×2 (07:30→17:12)
[2017-04-16] MEDS: GUAIFENESIN 600 MG TABCR PO SCH ×2 (08:44→20:50)
[2017-04-16] MEDS: METOPROLOL SUCC 25MG EXT REL TAB PO SCH (08:44)
[2017-04-16] MEDS: AMIODARONE 200 MG TAB PO SCH ×2 (08:44→20:50)
[2017-04-16] MEDS: FUROSEMIDE 20 MG TAB PO SCH (08:44)
[2017-04-16] MEDS: MAGNESIUM OXIDE 400 MG TAB PO SCH (08:44)
[2017-04-16] MEDS: AcetaZOLAMIDE 250 MG TAB PO SCH ×2 (08:44→17:16)
[2017-04-16] MEDS: INSULIN ASPART 100 UNITS/ML 3 ML PEN SC SCH ×4 (08:58→20:50)
--- NOTE | 2017-04-16 18:05 | Progress Note ---
Medicine Progress Note Date & Time of Visit: Apr 16, 2017 at 13:08. Subjective 71 yo M with multiple medical problems including worsening pneumonia with question of aspiration. Feels like he is congested in his chest. Appears very weak and deconditioned. Unsure if he truly knows where he is or what is going on. He was aspirating and had worsened pneumonia so was placed on abx recently. He had one episode of loose stool this evening. Remains afebrile. H /H stable since blood given on . Video swallow study planned for tmrw. Objective Last 8 Hrs Date Time Temp Pulse Resp B/P (MAP) Pulse Ox O2 Delivery O2 Flow Rate FiO2 04/16/17 12:00 Nasal Cannula 2.0 04/16/17 11:26 37.2 106 20 99/62 (74) 94 Nasal Cannula 2.0 04/16/17 07:44 37.4 98 20 102/56 (71) 98 Nasal Cannula 2.0 04/16/17 07:30 Nasal Cannula 2.0 04/16/17 07:16 88 18 94 Nasal Cannula 2.0 Physical Exam: GEN: thin, elderly, frail, alert and appropriate. Appears generally weak. HEENT: NC/AT, pupils are equal and round bilaterally, normal sclerae, MMM, nasal canula in place and no respiratory distress. CARDIO: reg rate, S1/2 heard without m/g/r,+ radial pulses bilaterally LUNGS: coarse breath sounds throughout ABD: soft, non-distended, no guarding. +BS EXTREMITY: RP and DP palpable 2+ bilat, no LE swelling or edema, extremities are warm and well-perfused NEURO: CN 2-12 intact grossly, sensation intact throughout SKIN: warm and dry, multiple areas of ecchymosis noted all down arms Laboratory Results: 04/15/17 06:16 04/15/17 06:16 04/16/17 06:26 Test 03/18/17 00:00 03/18/17 17:25 03/18/17 20:14 03/19/17 00:53 Influenza Type A (RT-PCR) Neg for Influ A (NEG) Influenza Type A Antigen Neg for Influ A (NEG) Influenza Type B Antigen Neg for Influ B (NEG) Influenza Type B (RT-PCR) Neg for Influ B (NEG) Giant Platelets 1+ Polychromasia 1+ Peripheral Blood Smear Path Consult Lactic Acid Level 0.6 mmol/L (0.4-2.0) Absolute Reticulocyte Count 0.06 10^6/uL (0.02-0.10) Percent Reticulocyte Count 2.6 % (0.5-2.0) Ferritin 178.5 ng/ml (8.0-388.0) Vitamin B12 Level 559 pg/mL (211-911) Folate 10.95 ng/mL (>5.38) Test 03/20/17 05:43 03/23/17 07:22 03/23/17 10:47 03/24/17 10:25 Basophilic Stippling OCCASIONAL Iron Level 36 mcg/dl (35-175) Total Iron Binding Capacity 182 mcg/dl (250-450) Transferrin 123 mg/dl (200-360) Transferrin % Saturation 21 % (20-50) Prostate Specific Antigen 1.680 ng/ml (0.000-4.000) Urine Color YELLOW Urine Appearance CLEAR (CLEAR) Urine pH 7.5 (4.5-7.5) Urine Specific [place] 1.018 (1.000-1.030) Urine Protein NEG (NEG) Urine Glucose (UA) NEG (NEG) Urine Ketones NEG (NEG) Urine Occult Blood NEG (NEG) Urine Nitrite NEG (NEG) Urine Bilirubin NEG (NEG) Urine Urobilinogen NEG (NEG) Urine Leukocyte Esterase TRACE (NEG) Urine WBC (Auto) 1-5 /hpf (0-5) Urine RBC (Auto) 0-4 /hpf (0-4) Urine Hyaline Casts (Auto) 1-5 /lpf (0-5) Urine Epithelial Cells (Auto) >30 /lpf (0-5) Urine Bacteria (Auto) NEG (NEG) Urine Mucus PRESENT (NONE PRSENT) Urine Yeast (Auto) BUDDING (NONE PRSENT) Stool Occult Blood NEGATIVE (NEGATIVE) Test 03/25/17 04:53 03/25/17 16:07 03/28/17 05:11 03/28/17 05:16 Direct Bilirubin 0.1 mg/dl (0-0.2) Prothrombin Time 10.3 SECONDS (9.0-12.0) Prothromb Time International Ratio 1.0 (0.9-1.1) Nucleated RBC Absolute Count (auto) 0.02 K/uL (0-0) Nucleated Red Blood Cells % 0.5 % Large Platelets 1+ Tear Drop Cells 1+ Blood Gas Sample Site L Radial Bedside Blood Gas pH (LAB) 7.40 (7.35-7.45) Bedside Blood Gas pCO2 (LAB) 47 mmHg (35-46) Bedside Blood Gas pO2 (LAB) 74 mmHg (80-95) Bedside Blood Gas HCO3 (LAB) 29 meq/L (19-24) Bedside Blood Gas Total CO2 30 mEq/l (24-31) Bedside Blood Gas Base Excess (LAB) 4.0 meq/L (-9-1.8) Bedside Blood Gas O2 Saturation 95.0 % (90-95) Oxygen Delivery Device Ventilator Bedside Oxygen Rate (breaths/min) 12 Blood Gas Minute Ventilation 7.1 Bedside FiO2 30 % Blood Gas Tidal Volume 550 Blood Gas PEEP 5 Test 03/31/17 05:15 04/01/17 05:30 04/02/17 05:22 04/07/17 10:41 Activated Partial Thromboplast Time 26.2 SECONDS (21.0-31.0) Partial Thromboplastin Ratio 1.0 Estimated Average Glucose 91 mg/dl Hemoglobin A1c 4.8 % (4.5-5.6) Phosphorus Level 2.2 mg/dl (2.5-4.9) Prealbumin 22.4 mg/dl (20-40) Total Bilirubin 0.8 mg/dl (0.2-1) Aspartate Amino Transf (AST/SGOT) 26 U/L (15-37) Alanine Aminotransferase (ALT/SGPT) 76 U/L (12-78) Alkaline Phosphatase 64 U/L (45-117) Total Protein 6.3 gm/dl (6.4-8.2) Albumin 3.3 gm/dl (3.4-5.0) Globulin 3.0 gm/dl (2.5-4.0) Albumin/Globulin Ratio 1.1 (0.9-2) Test 04/07/17 10:42 04/07/17 11:22 04/09/17 05:55 04/09/17 15:54 Toxic Granulation 1+ Stomatocytes 1+ Arterial Blood pH 7.35 (7.35-7.45) Arterial Blood Partial Pressure CO2 61 mmHg (35-46) Arterial Blood Partial Pressure O2 113 mm/Hg (80-95) Arterial Blood HCO3 33 mmol/L (19-24) Arterial Blood Oxygen Saturation 97.7 % (90-95) Arterial Blood Base Excess 6.8 mEq/L (-9-1.8) Arterial Blood Gas Delivery 3 L Howard Test POS (POS) Red Blood Cell Morphology Unremarkable Troponin I 0.128 ng/ml (0-0.045) Test 04/10/17 05:56 04/11/17 06:31 04/15/17 06:16 04/16/17 06:26 Platelet Estimate DECREASED Anisocytosis PRESENT Immature Granulocyte % (Auto) 0.4 % White Blood Count 11.07 K/uL (4.8-10.8) Red Blood Count 2.51 M/uL (4.7-6.1) 3.24 M/uL (4.7-6.1) Hemoglobin 7.9 g/dL (14.0-18.0) Hematocrit 25.0 % (42-52) Mean Corpuscular Volume 99.6 fL (80-100) 97.5 fL (80-100) Mean Corpuscular Hemoglobin 31.5 pg (25-34) 31.5 pg (25-34) Mean Corpuscular Hemoglobin Concent 31.6 g/dl (32-36) 32.3 g/dl (32-36) Platelet Count 90 K/uL (130-400) Mean Platelet Volume 10.8 fL (7.4-10.4) 10.4 fL (7.4-10.4) Neutrophils (%) (Auto) 90.8 % Lymphocytes (%) (Auto) 4.7 % Monocytes (%) (Auto) 3.8 % Eosinophils (%) (Auto) 0.3 % Basophils (%) (Auto) 0.0 % Neutrophils # (Auto) 10.06 K/uL (1.4-6.5) Lymphocytes # (Auto) 0.52 K/uL (1.2-3.4) Monocytes # (Auto) 0.42 K/uL (0.11-0.59) Eosinophils # (Auto) 0.03 K/uL (0-0.5) Basophils # (Auto) 0.00 K/uL (0-0.2) Immature Granulocyte # (Auto) 0.04 K/uL (0.00-0.02) Hypochromasia PRESENT Poikilocytosis PRESENT RDW Standard Deviation 53.6 fL (36.4-46.3) RDW Coefficient of Variation 15.2 % (11.5-14.5) Anion Gap 3.0 mmol/L (3-11) BUN/Creatinine Ratio 30.6 (10-20) Calcium Level 8.1 mg/dl (8.5-10.1) Magnesium Level 2.3 mg/dl (1.8-2.4) Est Creatinine Clear Calc Drug Dose 36.1 ml/min Estimated GFR () 55.9 Estimated GFR (Non- 48.2 Test 04/16/17 16:40 Bedside Glucose 140 mg/dl (70-99) Date/Time Source Procedure Growth Status 04/14/17 18:25 Blood Blood Culture - Preliminary NO GROWTH TO DATE. Resulted 04/14/17 20:30 Nasal MRSA DNA Surveillance Screen - Final Specimen Negative for MRSA by DNA Probe Complete 04/14/17 19:40 Sputum Expectorated Sputum Gram Stain - Final Complete 04/14/17 19:40 Sputum Expectorated Sputum Sputum Culture - Final MODERATE NORMAL GABE. Complete 04/06/17 19:10 Urine , Clean Catch Urine Culture - Final NO GROWTH - LESS THAN 1,000 COLONIES/ML Complete Last 24 Hours Test 04/15/17 16:38 04/15/17 20:57 04/16/17 06:19 04/16/17 06:26 Bedside Glucose 109 mg/dl 119 mg/dl 98 mg/dl Creatinine 1.43 mg/dl Est Creatinine Clear Calc Drug Dose 36.1 ml/min Estimated GFR () 55.9 Estimated GFR (Non- 48.2 Test 04/16/17 11:26 Bedside Glucose 204 mg/dl Assessment & Plan 71 yo M with multiple medical problems including worsening pneumonia with question of aspiration. Feels like he is congested in his chest. Appears very weak and deconditioned. Unsure if he truly knows where he is or what is going on. He was aspirating and had worsened pneumonia so was placed on abx recently. He had one episode of loose stool this evening. Remains afebrile. H /H stable since blood given on . Video swallow study planned for tmrw. 1. Chronic respiratory failure-cont oxygen supplementation in setting of severe COPD. 2. HAP 2/2 poss aspiration-worsening infiltrate on xray two days ago. Speech path reevaluated and made diet recs. Cont aspiration precautions. MRSA repeat was negative and clinically improved so vanc was stopped. Cont Unasyn. Cont prednisone taper per pulm. Cont nightly BIPAP and PRN during the day as needed. Cont bronchodilator therapy. 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 3. Stroke/multiple infarcts-questionable diagnosis of atrial arrhythmia at this time but patient a poor anticoagulation candidate. Also had temporary poor EF which improved so there was also an increased chance of LV thrombus but this was not caught on imaging. Repeat head CT one week post-stroke was negative for hemorrhagic conversion although patient remains a very poor anticoagulation candidate at this time. Cont amio. 4. Acute urinary retention-failed TOV with >800cc retained urine. Cabral replaced and should stay in per Urology 10-14 days with outpatient Urology followup. 5. COPD-dependent on home oxygen. Continues to actively smoke per family. He is not a candidate for LVRS 2/2 his low FEV1 of <20%. 6. Acute systolic heart failure seen after hypoxic event with elevated troponins. Was treated medically with heparin drip. Denies any chest pain today. Latest TTE shows an improved EF. He continues to do well on home diuretics including acetazolamide 250mg PO BID and Lasix 20mg PO daily. He remains euvolemic on exam. 7. Dysphagia-diet mod recs made by Speech today. Repeat video swallow study scheduled for tmrw ([facility]) 8. Ambulatory dysfunction 2/2 deconditioning from prolonged hospitalization and ICU stay. Cont PT/OT efforts. Plan for SNF at discharge. 9. Ureteral calculus-7mm obstructing calculus present in distal right ureter noted on CT 03/23 and seen again on repeat KUB. Urology was consulted and considered stent, however, they would like pt to be optimized from a cardiopulmonary standpoint more before undergoing any procedure ideally. Pt is having no LUTS or flank pain currently. For now will have him follow-up with Urology as outpatient. 10. Anemia-likely multifactorial related to dilution, acute blood loss 2/2 daily phlebotomy and anemia of chronic disease. This has been indolent and is not likely 2/2 acute bleeding. Transfused 2 units pRBCs and has been stable since with no evidence of bleeding. 11. Tobacco use-encouraged to quit smoking. This is imperative at this point. 12. Thrombocytopenia-adding to propensity to bleed and multiple areas of ecchymosis on exam. Holding blood thinners as above. Followup with Hematology as outpatient. DVT proph-SCDs Full Code Dispo-Suspect DC to SNF early next week. DO Neisha Reyes Hospitalist Continued [facility] stay due to: multiple IV medications needed, home environment unsafe for pt, other (acute care continues) Discharge planning: uncertain Consultants: Neuro-Dr. Denzel Bailon Procedures: . Current Inpatient Medications: Current Inpatient Medications Medications (Trade) Dose Ordered Sig/Rosemary Route Start Time Stop Time Status Last Admin Dose Admin Acetaminophen (Tylenol Tab) 650 mg Q4H PRN PO 03/18/17 20:30 04/17/17 20:29 04/11/17 21:05 650 MG Miscellaneous Information (Order Awaiting Action) 1 ea QS N/A 03/19/17 00:00 04/18/17 00:00 04/03/17 16:00 1 EA Lactulose (Chronulac Syrup) 30 gm Q6 PRN PO 03/30/17 08:30 04/29/17 08:29 04/07/17 09:30 30 GM Ipratropium Perry (Atrovent 0.02% 0.5MG/2.5ML Neb) 0.5 mg Q4H PRN INH 04/01/17 07:30 05/01/17 07:29 04/04/17 10:45 0.5 MG Levalbuterol (Xopenex 1.25MG/ 0.5ML Neb) 1.25 mg Q4H PRN INH 04/01/17 07:30 05/01/17 07:29 04/04/17 10:45 1.25 MG Alprazolam (Xanax Tab) 1 mg Q8H PRN PO 04/01/17 19:00 04/27/17 18:59 04/11/17 21:05 1 MG Acetazolamide (Diamox Tab) 250 mg BID17 PO 04/04/17 20:00 05/04/17 19:59 04/16/17 08:44 250 MG Furosemide (Lasix Tab) 20 mg DAILY PO 04/05/17 08:00 05/05/17 07:59 04/16/17 08:44 20 MG Magnesium Oxide (Mag-Ox Tab) 400 mg QAM PO 04/06/17 08:00 05/06/17 07:59 04/16/17 08:44 400 MG Enteral Nutritional Formula (Boost) 1 can BIDM PO 04/06/17 17:00 05/06/17 16:59 04/16/17 07:30 1 CAN Prednisone (PredniSONE TAB) 10 mg Taper DAILY PO 04/10/17 09:00 04/19/17 08:59 04/16/17 08:44 10 MG Ipratropium Perry (Atrovent 0.02% 0.5MG/2.5ML Neb) 0.5 mg BIDR INH 04/09/17 20:00 05/01/17 19:59 04/16/17 07:16 0.5 MG Levalbuterol (Xopenex 1.25MG/ 0.5ML Neb) 1.25 mg BIDR INH 04/09/17 20:00 05/01/17 19:59 04/16/17 07:16 1.25 MG Amiodarone HCl (Cordarone Tab) 200 mg BID PO 04/10/17 21:00 05/10/17 20:59 04/16/17 08:44 200 MG Insulin Aspart (novoLOG ASPART) SLIDING SCALE ACHS SC 04/12/17 16:15 05/12/17 16:14 04/16/17 12:13 6 UNITS Tamsulosin HCl (Flomax Cap) 0.4 mg HS PO 04/13/17 21:00 05/13/17 20:59 04/15/17 20:58 0.4 MG Ampicillin Sodium/ Sulbactam Sodium (Consult) 1 ea UD PRN N/A 04/14/17 18:15 05/14/17 18:14 Ampicillin Sodium/ Sulbactam Sodium 3000 mg/Sodium Chloride 108 ml @ 216 mls/hr Q6H IV 04/14/17 18:30 04/21/17 18:29 04/16/17 12:08 216 MLS/HR Metoprolol Succinate (Toprol Xl Tab) 25 mg QAM PO 04/15/17 09:00 05/15/17 08:59 04/16/17 08:44 25 MG Guaifenesin (Mucinex Contr Rel Tab) 600 mg Q12 PO 04/15/17 21:00 05/15/17 20:59 04/16/17 08:44 600 MG
[2017-04-16] MEDS: TAMSULOSIN HCL 0.4 MG CAP PO SCH (20:50)
[2017-04-17] VITALS (8 sets, daily range): BP systolic 111–142; BP diastolic 54–62; PULSE 75–100; TEMP 36.8–37.5; O2SAT 93–98
[2017-04-17] MEDS: AMPICILLIN/SULBACTAM SOD INJ 3,000 MG in SODIUM CHLORIDE 0.9% 100ML 100 ML IV SCH ×4 (00:17→17:05)
[2017-04-17 06:37] LABS: HEMATOCRIT 30.7 % (42-52); HEMOGLOBIN 9.6 g/dL (14.0-18.0); MEAN CELL VOLUME 98.7 fL (80-100); MEAN CORPUSCULAR HEMOGLOBIN 30.9 pg (25-34); MEAN CORPUSCULAR HGB CONC 31.3 g/dl (32-36); RED CELL DISTRIBUTION WIDTH CV 14.9 % (11.5-14.5); RED CELL DISTRIBUTION WIDTH SD 53.7 fL (36.4-46.3); WHITE BLOOD COUNT 8.09 K/uL (4.8-10.8)
[2017-04-17 06:50] LABS: PLATELET COUNT 99 K/uL (130-400)
[2017-04-17 07:09] LABS: CALCIUM 7.9 mg/dl (8.5-10.1); CREATININE 1.53 mg/dl (0.60-1.40)
[2017-04-17 07:10] LABS: PHOSPHORUS 4.2 mg/dl (2.5-4.9)
[2017-04-17] MEDS: LEVALBUTEROL 1.25MG/0.5ML NEB INH SCH ×2 (07:12→19:20)
[2017-04-17] MEDS: IPRATROPIUM BROMIDE NEB SOLN 0.02% 2.5 ML VIAL INH SCH ×2 (07:12→19:20)
[2017-04-17] MEDS: AcetaZOLAMIDE 250 MG TAB PO SCH ×2 (08:38→17:05)
[2017-04-17] MEDS: AMIODARONE 200 MG TAB PO SCH ×2 (08:38→17:06)
[2017-04-17] MEDS: FUROSEMIDE 20 MG TAB PO SCH (08:38)
[2017-04-17] MEDS: MAGNESIUM OXIDE 400 MG TAB PO SCH (08:38)
[2017-04-17] MEDS: BOOST VANILLA PO SCH ×2 (08:39→17:03)
[2017-04-17] MEDS: GUAIFENESIN 600 MG TABCR PO SCH ×2 (08:39→17:04)
[2017-04-17] MEDS: METOPROLOL SUCC 25MG EXT REL TAB PO SCH (08:39)
[2017-04-17] MEDS: INSULIN ASPART 100 UNITS/ML 3 ML PEN SC SCH ×4 (08:43→21:00)
--- NOTE | 2017-04-17 12:52 | Cardiology Progress Note ---
Cardiology Progress Note Date of Service Apr 17, 2017. Cardiology Progress Note Telemetry reviewed. Heart rates controlled in the 90-99 bpm range. Continue metoprolol 25 mg daily, and amiodarone 200 mg twice a day. At time of discharge reduce amiodarone to 200 mg daily.
--- NOTE | 2017-04-17 14:58 | DIAGNOSTIC IMAGING REPORT ---
VIDEO SWALLOW CLINICAL HISTORY: Respiratory failure. Cerebrovascular accident. Evaluate for aspiration. COMPARISON STUDY: Modified barium swallow March 20, 2017. Fluoroscopy time: 2.7 minutes. FINDINGS: Penetration was noted within liquids and nectar thick liquids. There was no aspiration with thin liquids, nectar thick liquids, pudding or crackers with paste. Moderate to severe esophageal dysmotility was noted. Mucosal detail within the esophagus is diminished given this technique. IMPRESSION: 1. No tracheal aspiration identified. Penetration with thin liquids and nectar thick liquids. 2. Moderate to severe esophageal dysmotility. 3. Full recommendations by Speech Pathology to follow. Electronically signed by: Mac Barron M.D. 04/17/2017 2:57 PM Dictated Date/Time: 04/17/2017 2:54 PM
--- NOTE | 2017-04-17 15:56 | PROGRESS NOTE ---
DATE: 04/17/2017 SUBJECTIVE: I saw Meek today. Briefly, he is still pleasantly confused, the right field cut is getting somewhat improved, his left hemiparesis is better, but he is still pretty encephalopathic and I suspect will be heading for an extended care facility the next week as per Dr. Avila' note. The cause for his embolic infarctions remains uncertain. The initial thinking was that he had paroxysmal atrial fibrillation, but this has not documented and the other thinking which I prefer is his LV function had a transient drop with formation of a laminated clot with subsequent embolization and is now cleared. He is clearly not an anticoagulation candidate until his platelet count would come up into a normal range and thus far it is only at 99,000. It is not clear whether he might have a slow GI bleed as well. For now, since we do not have evidence for paroxysmal atrial fib, after prolonged monitoring and it might have been a thrombus in the left ventricle which is now cleared. I think the most one he would ever need would be a single antiplatelet drug and I would only add this until his platelet count comes up to over 100,000 and remains in a stable condition for several weeks. For now, I think neurology is to sign off and we will be happy to see him on an as-needed basis. I do not think he is going to need neurologic follow up on an outpatient basis either. JOSÉ MANUEL
[2017-04-17] MEDS: TAMSULOSIN HCL 0.4 MG CAP PO SCH (17:04)
[2017-04-17] MEDS ORDERED: VANCOMYCIN TROUGH ONE (17:30)
--- NOTE | 2017-04-17 18:43 | Progress Note ---
Subjective Date of Service: Apr 17, 2017. Subjective Pt evaluation today including: conversation w/ patient, physical exam, lab review, review of studies, review of inpatient medication list Saw/examined the patient in room 210 He's seated in a chair; lack of appetite, did not eat his lunch as of yet; tells me he will Denies any pain, denies any symptoms Problem List Medical Problems: (1) COPD exacerbation Status: Acute (2) Hypoxia Status: Acute (3) Pancytopenia Status: Acute (4) Pneumonia Status: Acute Review of Systems Constitutional: No weakness Respiratory: + cough, + sputum, No wheezing, No shortness of breath, No dyspnea on exertion, No dyspnea at rest, No hemoptysis Cardiac: No chest pain Abdomen: No pain, No nausea, No vomiting, No diarrhea Heme: No abnormal bleeding/bruising Objective Vital Signs Date Time Temp Pulse Resp B/P (MAP) Pulse Ox O2 Delivery O2 Flow Rate FiO2 04/17/17 16:00 Nasal Cannula 2.0 04/17/17 15:49 36.8 98 26 142/61 (88) 98 Nasal Cannula 5.0 04/17/17 12:45 Nasal Cannula 2.0 04/17/17 12:28 36.9 93 26 133/62 (85) 93 Nasal Cannula 2.0 04/17/17 08:30 36.9 85 30 118/54 (75) 97 Nasal Cannula 2.0 04/17/17 08:00 Nasal Cannula 2.0 04/17/17 07:12 90 18 93 Nasal Cannula 2.0 04/17/17 04:22 37.5 95 29 118/55 (76) 96 Nasal Cannula 2.0 04/17/17 04:00 Nasal Cannula 2.0 04/17/17 00:34 36.8 75 35 136/61 (86) 96 Nasal Cannula 2.0 04/17/17 00:00 Nasal Cannula 2.0 04/16/17 20:00 Nasal Cannula 2.0 04/16/17 19:46 37.5 105 20 114/50 (71) 93 Nasal Cannula 2.0 04/16/17 18:38 88 18 95 Nasal Cannula 2.0 Physical Exam Respiratory/Chest: no respiratory distress, no accessory muscle use, + crackles , + rhonchi Cardiovascular: no edema, no murmur, + tachycardia Extremities: normal inspection, no pedal edema Neurologic/Psychiatric: no motor/sensory deficits, alert, + depressed affect Laboratory Results Last 24 Hours Test 04/16/17 20:14 04/17/17 05:58 04/17/17 06:21 04/17/17 11:31 Bedside Glucose 204 mg/dl 132 mg/dl 144 mg/dl White Blood Count 8.09 K/uL Red Blood Count 3.11 M/uL Hemoglobin 9.6 g/dL Hematocrit 30.7 % Mean Corpuscular Volume 98.7 fL Mean Corpuscular Hemoglobin 30.9 pg Mean Corpuscular Hemoglobin Concent 31.3 g/dl RDW Standard Deviation 53.7 fL RDW Coefficient of Variation 14.9 % Platelet Count 99 K/uL Mean Platelet Volume 10.0 fL Sodium Level 142 mmol/L Potassium Level 4.0 mmol/L Chloride Level 108 mmol/L Carbon Dioxide Level 27 mmol/L Anion Gap 7.0 mmol/L Blood Urea Nitrogen 43 mg/dl Creatinine 1.53 mg/dl Est Creatinine Clear Calc Drug Dose 33.6 ml/min Estimated GFR () 51.5 Estimated GFR (Non- 44.5 BUN/Creatinine Ratio 28.3 Random Glucose 110 mg/dl Calcium Level 7.9 mg/dl Phosphorus Level 4.2 mg/dl Magnesium Level 2.2 mg/dl Test 04/17/17 16:10 Bedside Glucose 144 mg/dl Assessment and Plan 71 yo M with multiple medical problems including worsening pneumonia with question of aspiration. Feels like he is congested in his chest. Appears very weak and deconditioned. Unsure if he truly knows where he is or what is going on. He was aspirating and had worsened pneumonia so was placed on abx recently. He had one episode of loose stool this evening. Remains afebrile. H /H stable since blood given on . Video swallow study planned for tmrw. 1. Chronic respiratory failure-cont oxygen supplementation in setting of severe COPD. 2. HAP 2/2 poss aspiration-worsening infiltrate on xray two days ago. Speech path reevaluated and made diet recs. Cont aspiration precautions. MRSA repeat was negative and clinically improved so vanc was stopped. Cont Unasyn. Cont prednisone taper per pulm. Cont nightly BIPAP and PRN during the day as needed. Cont bronchodilator therapy. 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 1/2 continue Unasyn for now change to Augmentin on discharge continue prednisone taper 3. Stroke/multiple infarcts-questionable diagnosis of atrial arrhythmia at this time but patient a poor anticoagulation candidate. Also had temporary poor EF which improved so there was also an increased chance of LV thrombus but this was not caught on imaging. Repeat head CT one week post-stroke was negative for hemorrhagic conversion although patient remains a very poor anticoagulation candidate at this time. Cont amio. 1/2 continue current medications 4. Acute urinary retention-failed TOV with >800cc retained urine. Cabral replaced and should stay in per Urology 10-14 days with outpatient Urology followup. 5. COPD-dependent on home oxygen. Continues to actively smoke per family. He is not a candidate for LVRS 2/2 his low FEV1 of <20%. 6. Acute systolic heart failure seen after hypoxic event with elevated troponins. Was treated medically with heparin drip. Denies any chest pain today. Latest TTE shows an improved EF. He continues to do well on home diuretics including acetazolamide 250mg PO BID and Lasix 20mg PO daily. He remains euvolemic on exam. 7. Dysphagia-diet mod recs made by Speech today. Repeat video swallow study scheduled for tmrw ([facility]) 8. Ambulatory dysfunction 2/2 deconditioning from prolonged hospitalization and ICU stay. Cont PT/OT efforts. Plan for SNF at discharge. 9. Ureteral calculus-7mm obstructing calculus present in distal right ureter noted on CT 03/23 and seen again on repeat KUB. Urology was consulted and considered stent, however, they would like pt to be optimized from a cardiopulmonary standpoint more before undergoing any procedure ideally. Pt is having no LUTS or flank pain currently. For now will have him follow-up with Urology as outpatient. 10. Anemia-likely multifactorial related to dilution, acute blood loss 2/2 daily phlebotomy and anemia of chronic disease. This has been indolent and is not likely 2/2 acute bleeding. Transfused 2 units pRBCs and has been stable since with no evidence of bleeding. 11. Tobacco use-encouraged to quit smoking. This is imperative at this point. 12. Thrombocytopenia-adding to propensity to bleed and multiple areas of ecchymosis on exam. Holding blood thinners as above. Followup with Hematology as outpatient. DVT proph-SCDs Full Code Dispo-Suspect DC to SNF early next week. Continued [facility] stay due to: multiple IV medications needed, home environment unsafe for pt, other (acute care continues) Discharge planning: uncertain
[2017-04-18 00:19] VITALS: BP 120/59; PULSE 92; TEMP 36.8; O2SAT 96
[2017-04-18] MEDS: AMPICILLIN/SULBACTAM SOD INJ 3,000 MG in SODIUM CHLORIDE 0.9% 100ML 100 ML IV SCH ×3 (01:03→11:19)
[2017-04-18 04:46] VITALS: BP 111/51; PULSE 86; TEMP 36.9; O2SAT 94
[2017-04-18 06:44] LABS: HEMATOCRIT 29.5 % (42-52); HEMOGLOBIN 9.2 g/dL (14.0-18.0); MEAN CELL VOLUME 98.3 fL (80-100); MEAN CORPUSCULAR HEMOGLOBIN 30.7 pg (25-34); MEAN CORPUSCULAR HGB CONC 31.2 g/dl (32-36); PLATELET COUNT 118 K/uL (130-400); RED CELL DISTRIBUTION WIDTH CV 14.8 % (11.5-14.5); RED CELL DISTRIBUTION WIDTH SD 53.1 fL (36.4-46.3)
[2017-04-18 07:19] VITALS: PULSE 90; O2SAT 98
[2017-04-18] MEDS: LEVALBUTEROL 1.25MG/0.5ML NEB INH SCH (07:19)
[2017-04-18] MEDS: IPRATROPIUM BROMIDE NEB SOLN 0.02% 2.5 ML VIAL INH SCH (07:19)
[2017-04-18 07:20] LABS: CREATININE 1.34 mg/dl (0.60-1.40); POTASSIUM 4.2 mmol/L (3.5-5.1)
[2017-04-18 07:22] LABS: PHOSPHORUS 3.4 mg/dl (2.5-4.9)
[2017-04-18 08:11] VITALS: BP 115/56; PULSE 94; TEMP 36.7; O2SAT 97
[2017-04-18] MEDS: METOPROLOL SUCC 25MG EXT REL TAB PO SCH (08:23)
[2017-04-18] MEDS: AMIODARONE 200 MG TAB PO SCH (08:23)
[2017-04-18] MEDS: MAGNESIUM OXIDE 400 MG TAB PO SCH (08:23)
[2017-04-18] MEDS: FUROSEMIDE 20 MG TAB PO SCH (08:23)
[2017-04-18] MEDS: BOOST VANILLA PO SCH (08:24)
[2017-04-18] MEDS: AcetaZOLAMIDE 250 MG TAB PO SCH (08:24)
[2017-04-18] MEDS: INSULIN ASPART 100 UNITS/ML 3 ML PEN SC SCH ×2 (08:30→11:27)
[2017-04-18] MEDS: GUAIFENESIN 600 MG TABCR PO SCH (09:00)
--- NOTE | 2017-04-18 10:34 | Progress Note ---
Subjective Date of Service: Apr 18, 2017. Subjective Pt evaluation today including: conversation w/ patient, physical exam, lab review, review of studies, review of inpatient medication list Saw/examined the patient in room 210 He's doing well, +cough and +congestion persist Denies chest pain Moving bilateral extremities well, tells me he is +weak okay with the plan to go to a rehab/SNF facility to get his strength up video swallow done yesterday - severe esophageal dysmotility noted; as per nursing, he lays down flat after eating - I explained to him not to do this and he is agreeable Problem List Medical Problems: (1) COPD exacerbation Status: Acute (2) Hypoxia Status: Acute (3) Pancytopenia Status: Acute (4) Pneumonia Status: Acute Review of Systems Constitutional: + weakness ENT: + trouble swallowing Respiratory: + cough, + sputum, + wheezing, + shortness of breath, No dyspnea on exertion, No dyspnea at rest, No hemoptysis Cardiac: No chest pain, No edema, No palpitations Abdomen: No pain, No nausea, No vomiting, No diarrhea Medications Current Inpatient Medications Medications (Trade) Dose Ordered Sig/Rosemary Route Start Time Stop Time Status Last Admin Dose Admin Lactulose (Chronulac Syrup) 30 gm Q6 PRN PO 03/30/17 08:30 04/29/17 08:29 04/07/17 09:30 30 GM Ipratropium [place] (Atrovent 0.02% 0.5MG/2.5ML Neb) 0.5 mg Q4H PRN INH 04/01/17 07:30 05/01/17 07:29 04/04/17 10:45 0.5 MG Levalbuterol (Xopenex 1.25MG/ 0.5ML Neb) 1.25 mg Q4H PRN INH 04/01/17 07:30 05/01/17 07:29 04/04/17 10:45 1.25 MG Alprazolam (Xanax Tab) 1 mg Q8H PRN PO 04/01/17 19:00 04/27/17 18:59 04/11/17 21:05 1 MG Acetazolamide (Diamox Tab) 250 mg BID17 PO 04/04/17 20:00 05/04/17 19:59 04/18/17 08:24 250 MG Furosemide (Lasix Tab) 20 mg DAILY PO 04/05/17 08:00 05/05/17 07:59 04/18/17 08:23 20 MG Magnesium Oxide (Mag-Ox Tab) 400 mg QAM PO 04/06/17 08:00 05/06/17 07:59 04/18/17 08:23 400 MG Enteral Nutritional Formula (Boost) 1 can BIDM PO 04/06/17 17:00 05/06/17 16:59 04/18/17 08:24 1 CAN Prednisone (PredniSONE TAB) 10 mg Taper DAILY PO 04/10/17 09:00 04/19/17 08:59 04/18/17 08:23 10 MG Ipratropium [place] (Atrovent 0.02% 0.5MG/2.5ML Neb) 0.5 mg BIDR INH 04/09/17 20:00 05/01/17 19:59 04/18/17 07:19 0.5 MG Levalbuterol (Xopenex 1.25MG/ 0.5ML Neb) 1.25 mg BIDR INH 04/09/17 20:00 05/01/17 19:59 04/18/17 07:19 1.25 MG Amiodarone HCl (Cordarone Tab) 200 mg BID PO 04/10/17 21:00 05/10/17 20:59 04/18/17 08:23 200 MG Insulin Aspart (novoLOG ASPART) SLIDING SCALE ACHS SC 04/12/17 16:15 05/12/17 16:14 04/18/17 08:30 3 UNITS Tamsulosin HCl (Flomax Cap) 0.4 mg HS PO 04/13/17 21:00 05/13/17 20:59 04/17/17 17:04 0.4 MG Ampicillin Sodium/ Sulbactam Sodium (Consult) 1 ea UD PRN N/A 04/14/17 18:15 05/14/17 18:14 Ampicillin Sodium/ Sulbactam Sodium 3000 mg/Sodium Chloride 108 ml @ 216 mls/hr Q6H IV 04/14/17 18:30 04/21/17 18:29 04/18/17 06:57 216 MLS/HR Metoprolol Succinate (Toprol Xl Tab) 25 mg QAM PO 04/15/17 09:00 05/15/17 08:59 04/18/17 08:23 25 MG Guaifenesin (Mucinex Contr Rel Tab) 600 mg Q12 PO 04/15/17 21:00 05/15/17 20:59 04/17/17 17:04 600 MG Objective Vital Signs Date Time Temp Pulse Resp B/P (MAP) Pulse Ox O2 Delivery O2 Flow Rate FiO2 04/18/17 08:11 36.7 94 16 115/56 (75) 97 04/18/17 07:19 90 18 98 Nasal Cannula 4.0 04/18/17 04:46 36.9 86 20 111/51 (71) 94 Nasal Cannula 4.0 04/18/17 04:00 Nasal Cannula 2.0 04/18/17 00:19 36.8 92 20 120/59 (79) 96 Nasal Cannula 4.0 04/17/17 23:59 Nasal Cannula 2.0 04/17/17 19:56 37.5 99 24 111/56 (74) 95 Nasal Cannula 4.0 04/17/17 19:23 100 18 96 Nasal Cannula 4.0 04/17/17 16:00 Nasal Cannula 2.0 04/17/17 15:49 36.8 98 26 142/61 (88) 98 Nasal Cannula 5.0 04/17/17 12:45 Nasal Cannula 2.0 04/17/17 12:28 36.9 93 26 133/62 (85) 93 Nasal Cannula 2.0 Physical Exam General Appearance: + cachetic, + thin, + pertinent finding (chronically ill appearing) Respiratory/Chest: no respiratory distress, no accessory muscle use, + rhonchi , + pertinent finding Cardiovascular: regular rate, rhythm, no edema Extremities: non-tender, normal inspection, no pedal edema Neurologic/Psychiatric: alert, + disoriented (oriented to person, place, time - occasionally gets disoriented/confused), + pertinent finding (strength on the left is improving; but muscle weakness persists) Laboratory Results Last 24 Hours Test 04/17/17 11:31 04/17/17 16:10 04/17/17 20:25 04/18/17 06:22 Bedside Glucose 144 mg/dl 144 mg/dl 140 mg/dl White Blood Count 6.00 K/uL Red Blood Count 3.00 M/uL Hemoglobin 9.2 g/dL Hematocrit 29.5 % Mean Corpuscular Volume 98.3 fL Mean Corpuscular Hemoglobin 30.7 pg Mean Corpuscular Hemoglobin Concent 31.2 g/dl RDW Standard Deviation 53.1 fL RDW Coefficient of Variation 14.8 % Platelet Count 118 K/uL Mean Platelet Volume 10.0 fL Sodium Level 138 mmol/L Potassium Level 4.2 mmol/L Chloride Level 106 mmol/L Carbon Dioxide Level 29 mmol/L Anion Gap 3.0 mmol/L Blood Urea Nitrogen 36 mg/dl Creatinine 1.34 mg/dl Est Creatinine Clear Calc Drug Dose 38.5 ml/min Estimated GFR () 60.5 Estimated GFR (Non- 52.2 BUN/Creatinine Ratio 26.6 Random Glucose 96 mg/dl Calcium Level 8.0 mg/dl Phosphorus Level 3.4 mg/dl Magnesium Level 2.3 mg/dl Test 04/18/17 07:17 Bedside Glucose 101 mg/dl Assessment and Plan 71 yo M with multiple medical problems including worsening pneumonia with question of aspiration. Feels like he is congested in his chest. Appears very weak and deconditioned. Unsure if he truly knows where he is or what is going on. He was aspirating and had worsened pneumonia so was placed on abx recently. He had one episode of loose stool this evening. Remains afebrile. H /H stable since blood given on . Video swallow study planned for tmrw. Updates on 04/18/17 Aspiration Initially was intubated and in the ICU; now extubated and intermittently on bipap and O2. patient had video swallow done on 04/17/17 - has moderate to severe esophageal dysmotility. Aspiration risk, should be on a slippery diet, HOB to remain elevated 30 minutes after meals and he should not lay down flat Oral care to include brushing before and after meals Small, frequent meals with rest breaks HCAP vs. Aspiration Pneumonia Acute COPD Exacerbation Tobacco Use Disorder Acute on Chronic Hypoxic Respiratory Failure He is currently on oxygen, which we can keep on a PRN basis. (from records, it seems patient is on O2 chronically) Due to aspiration and likely hospital acquired vs. aspiration pneumonia - will be discharged on Augmentin. We can stop prednisone; he has been tapered off as per pulmonology. Should be on nocturnal bipap if needed. Acute Embolic CVA Appreciate neurology input for his CVA earlier during hospital admission. This was possibly an embolic event; though no arrhythmias noted on tele. Repeat head CT showed no hemorrhagic conversion and no further ischemic events. At this point, no antiplatelets due to low platelet count. Today (04/18) - platelets are greater than >100; should monitor and be stable prior to starting No anticoagulation as per neurology and cardiology. Cardiomyopathy; Acute Systolic CHF Possible Atrial Arrhythmias/Tachycardia He's had cardiomyopathy - three echocardiograms done during this admission; initially showing normal LVEF, then moderate LVEF dysfunction, and then mild LVEF dysfunction. possibility of an LV thrombus as per cardiology. No anticoagulation due to bleed risk and thrombocytopenia. Plan for discharge on b-krunal, metoprolol succinate 25mg daily and amiodarone 200mg daily (due to possibility of an atrial arrhythmia causing embolic CVA) continue diuretics (acetazolamide and Lasix) Acute Urinary Retention Acute Kidney Injury - resolved Ureteral Calculus continue to have Cabral catheter, plan for outpatient urology consultation no stenting for the ureteral calculus; kidney function has improved from prior - can have outpatient urology follow-up Anemia/Thrombocytopenia hold blood thinners and antiplatelets as above s/p three units pRBCs during this admission monitor Hgb and platelets outpatient hematology follow-up Ambulatory Dysfunction patient is severely deconditioned from the prolonged hospital stay s/p CVA and motor weakness persists continued PT/OT while inpatient plan for [facility] Malnutrition BMI is around 18 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
[2017-04-18] MEDS ORDERED: XNX5 PO (10:47)
[2017-04-18] MEDS ORDERED: FLM4 PO (10:47)
[2017-04-18] MEDS ORDERED: CRD200 PO (10:47)
[2017-04-18] MEDS ORDERED: GFNSR600 PO (10:47)
[2017-04-18] MEDS ORDERED: Enteral Nutrition Formula PO (10:47)
[2017-04-18] MEDS ORDERED: MGNO400 PO (10:47)
[2017-04-18] MEDS ORDERED: XPNINS1255 INH ×2 (10:47)
[2017-04-18] MEDS ORDERED: TPRSR25 PO (10:47)
[2017-04-18] MEDS ORDERED: AMOX875T PO (10:47)
[2017-04-18] MEDS ORDERED: LCTL45 PO (10:47)
[2017-04-18] MEDS ORDERED: LPT40 PO (11:14)
--- NOTE | 2017-04-18 11:15 | Discharge Instructions ---
Discharge Instructions Date of Service Apr 18, 2017. Admission Reason for Admission: Respiratory Failure, Acute Discharge Discharge Diagnosis / Problem: stroke, copd, aspiration and pneumonia Discharge Goals Goal(s): Decrease discomfort, Improve function, Diagnostic testing, Therapeutic intervention Activity Recommendations Activity Level: Up Ad Joanna Therapies: Physical Therapy, Occupational Therapy, Speech Therapy Lifting Limitations: none Exercise/Sports Limitations: none Shower/Bathe: no limitations . Additional Information Patient informed of condition: Yes Advance Directives: No DNR: No Level of Care: Skilled Communicable Disease: No Prognosis: Stable Oxygen at (LPM): 2 Cabral Catheter: Yes Instructions / Follow-Up Instructions / Follow-Up Diet Recommendations: * Dental soft diet, "slippery". Avoid foods that are dry, thick, pasty, doughy. Use condiments such as sauce/gravy to keep foods moist. * Aspiration and GERD precautions, straws ok, fully upright for meals and for 30 minutes after meals. Head of bed elevated to at least 30 degrees at all times, to include while sleeping. DO NOT LAY FLAT. * Stringent oral care to include brushing all surfaces of the mouth and tongue prior to and after meals, as well as before bed to reduced oral bacteria that can be aspirated in saliva. * Small frequent meals, rest breaks. Alternate solids and liquids as needed. Slow rate. Medication Recommendations: * Patient to be discharged on Augmentin BID for seven days for possible aspiration pneumonia. * Patient to be discharged on metoprolol and amiodarone for possible arrhythmias. * Duonebs changed to Xopenex to prevent tachycardia * Started on Flomax Other Recommendations: * patient is likely dependent on O2 due to severe COPD * May need bipap nocturnally and PRN throughout the day * Cabral catheter to remain in until outpatient urology follow-up due to urinary retention * will need PT/OT and speech therapy * should check labs q3-5 days to check electrolytes, Hgb, platelets * Outpatient cardiology, neurology, urology follow-up Current Hospital Diet Patient's current hospital diet: Low Lactose Diet, AHA Diet (Heart Healthy) Discharge Diet Recommended Diet: AHA Diet (Heart Healthy) (slippery diet) Diet Texture: Dental Soft (bite-sized) Pending Studies Studies pending at discharge: no Laboratory Results Hemoglobin A1c Test 03/31/17 05:15 Range/Units Estimated Average Glucose 91 mg/dl Hemoglobin A1c 4.8 4.5-5.6 % Medical Emergencies . Who to Call and When: Medical Emergencies: If at any time you feel your situation is an emergency, please call 911 immediately. . Non-Emergent Contact Non-Emergency issues call your: Primary Care Provider, Track Repair Person, Neurologist, Urologist . . "Provider Documentation" section prepared by Zabrina Melvin. . Core Measure Problem Core Measures: Stroke Stroke Core Measures Reason no t-PA for Stroke: Treatment not indicated Reason no antithrom by day 2: Contraindicated Reason no antithrom at D/C: Contraindicated Reason no statin at D/C: Treatment provided - N/A Reason no anticoag w/a fib: Contraindicated
--- NOTE | 2017-04-18 11:28 | Discharge Summary ---
Discharge Summary Date of Service Apr 18, 2017. Discharge Summary Admission Date: Mar 18, 2017 at 19:31 Discharge Date: Apr 18, 2017 Discharge Disposition: halfway facility Principal Diagnosis: Acute CVA, likely Embolic Aspiration HCAP vs. Aspiration Pneumonia Severe COPD Exacerbation Acute on Chronic Hypoxic Respiratory Failure Cardiomyopathy; Acute Systolic CHF Acute Urinary Retention Ambulatory Dysfunction Malnutrition Procedures: . Consultations: Neuro-Dr. Denzel Bailon Medication Reconciliation New Medications: Amoxicillin & Pot Clavulanate (Augmentin 875-125 mg) 1 Tab Tab 1 TAB PO BID for 7 Days, #14 TAB Atorvastatin (Atorvastatin Calcium) 40 Mg Tab 40 MG PO HS for 3 Days, #30 TABS Alprazolam (Alprazolam) 0.5 Mg Tab 0.5 MG PO Q8H PRN for anxiety for 10 Days, #20 TAB Amiodarone HCl (Amiodarone HCl) 200 Mg Tab 200 MG PO DAILY for 30 Days, #30 TAB Guaifenesin Ext Rel (Mucinex Ext Rel) 600 Mg Tabcr 600 MG PO Q12 for 5 Days, #10 TAB Lactulose (Lactulose) 30 Gm/45 Ml Syrp 30 GM PO Q6 PRN for CONSTIPATION for 5 Days, #900 ML Levalbuterol (Levalbuterol) 1.25 Mg/0.5 Ml Nebu 1.25 MG INH BIDR for 30 Days, #30 ML Levalbuterol (Levalbuterol) 1.25 Mg/0.5 Ml Nebu 1.25 MG INH Q4H PRN for Shortness of Breath for 30 Days, #60 ML Magnesium Oxide (Magnesium-Oxide) 400 Mg Tab 400 MG PO QAM for 30 Days, #30 TAB Metoprolol Succinate (Metoprolol Succinate ER) 25 Mg Tabcr 25 MG PO QAM for 30 Days, #30 TAB Tamsulosin HCl (Tamsulosin HCl) 0.4 Mg Cap 0.4 MG PO HS for 30 Days, #30 CAP [Enteral Nutrition Formula] () 1 CAN LIQD 1 CAN PO BIDM for 30 Days, #60 CAN Continued Medications: Acetazolamide (Acetazolamide) 250 Mg Tab 250 MG PO BID Budesonide/Formoterol Fumarate (Symbicort 160/4.5 Inhaler ) Aero 2 PUFFS INH BID, INHALER Doxazosin Mesylate (Doxazosin Mesylate) 8 Mg Tab 8 MG PO DAILY Furosemide (Lasix) 20 Mg Tab 20 MG PO DAILY, TAB Home O2 Therapy (Oxygen) Gas 2-2.5 LITERS NA CONTINOUS . Ipratropium-Albuterol (Combivent Respimat) 1 Aer Aer 1 PUFFS INH Q4H PRN for SOB/COUGH, INH Levocetirizine Dihydrochloride (Levocetirizine Dihydrochl) 5 Mg Tab 5 MG PO DAILY for 90 Days, #90 TAB 3 Refills Pantoprazole (Protonix) 40 Mg Tab 40 MG PO QAM, #30 TAB Potassium Chloride (Micro-K Ext Rel) 10 Meq Capcr 10 MEQ PO BID, CAP Triamcinolone Acet (Aristocort 0.1%) 90 Appln/30 Gm Cr 1 APPLN TD BID Discontinued Medications: Acetaminophen (Tylenol) 325 Mg Tab 650 MG PO Q4H PRN for Pain or Fever, TAB Aspirin (Aspirin Ec) 81 Mg Tab 81 MG PO QAM Azelastine Hcl (Astelin Nasal [place]) 200 Sprays/30 Ml [place] 1-2 SPRAYS NA BID PRN for ALLERGIES, BTL Azithromycin (Zithromax) 500 Mg Tab 500 MG PO 3XWK, #4 TAB TAKES MON, WED, FRI. Ipratropium-Albuterol (Duoneb) 3 Ml Nebu 1 TREATMENT INH Q4H, INHA Levofloxacin (Levaquin) 500 Mg Tab 750 MG PO DAILY PRN for RESCUE KIT for 7 Days, #11 TAB Naproxen (Naprosyn) 500 Mg Tab 500 MG PO BID W/FOOD PRN for Pain, TAB Admission Information HPI (per Admitting provider): DATE OF ADMISSION: 03/18/2017 PRIMARY CARE DOCTOR: Dr. Hamzah Ashley. CHIEF COMPLAINT: Shortness of breath. HISTORY OF PRESENT ILLNESS: History obtained from patient and records. Medical history significant for chronic respiratory failure secondary to COPD on home O2, hypertension, CRI baseline creatinine 1.3, past tobacco abuse, chronic thrombocytopenia Recent confinement 2016 for COPD exacerbation, One-week history of productive cough symptoms. Admits to some coughing with meals. No chest pain. Admits to increasing shortness of breath. Denies fluid retention. Denies abdominal pain, black/bloody stools. Patient brought to the Emergency Room. He received Levaquin and Ventolin for COPD exacerbation. MEDICAL HISTORY: hx diverticulosis and polyps on colonoscopy in 2014 SURGERIES: None. HOME MEDICATIONS: Include acetazolamide, aspirin, Tylenol, Zithromax, Symbicort, Naproxen ALLERGIES: LACTOSE AND POLLEN. FAMILY HISTORY: Heart disease and lung disease. PERSONAL AND SOCIAL HISTORY: Past tobacco abuse. No chronic intake of alcoholic beverages. 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 REVIEW OF SYSTEMS: As per HPI. All 10 systems reviewed. All other ROS negative. PHYSICAL EXAMINATION: VITAL SIGNS: Blood pressure was noted to be 134/68, pulse rate 100, RR 21, temperature 37.7, sats 92 on 3 liters. GENERAL: Noted to be slightly uncomfortable, no respiratory distress, slightly hard of hearing. SKIN: Pallor and warm. HEENT: Alopecia. Pale palpebral conjunctivae. No ptosis. Dry mucosa. NECK: Short neck, no tenderness. CHEST: Decreased breath sounds. Occasional wheeze. HEART: Regular rate and rhythm, no murmur. ABDOMEN: Soft, nontender. RECTAL: Intact sphincter. Brown stools. Heme negative. EXTREMITIES: No edema noted. No gross deformities. No tenderness NEUROLOGIC: Coherent. No gross focality except for mild hearing impairment. LABORATORIES: Hemoglobin was noted to be 8, white blood cell count 2.8, platelets 76. Sodium 137, BUN 20, creatinine 1.7, glucose 98. Urinalysis, trace protein, epithelial cells 10-20. Chest x-ray showed cardiomegaly, emphysema, patchy airspace infiltrates. ASSESSMENT: 1. [id number] hypoxemic, hypercapnic respiratory failure secondary to possible aspiration pneumonia, possible sepsis. Marked hypercapnia on review of previous ABGs 2. Pancytopenia ? Secondary to home Acetazolamide - drug associated with aplastic anemia) [id number] anemia. Hg noted to be dropping over the last several months on review of outpatient blood work. Hemoccult negative. Chronic thrombocytopenia. Leukopenia. 3. HTN, stable 4. ARF 2 to illness 5. Past tobacco abuse PLAN: PCU supplemental O2 Baseline ABG Unasyn, nebs, steroids. Swallow eval, aspiration precautions for now Pulmonology consult RE resp failure peripheral blood smear. anemia valera, Outpatient Hematology opinion for pancytopenia Follow H&H, transfuse pRBC for hemoglobin less than 7 and/or symptomatic anemia. Monitor creatinine response to IV fluids. Hold home Acetazolamide for now given kidney dysfunction and possible hematologic toxicity. DVT prophylaxis, SCDs RE thrombocytopenia. Full code. Hospital Course 71 yo M with multiple medical problems including worsening pneumonia with question of aspiration. Feels like he is congested in his chest. Appears very weak and deconditioned. Unsure if he truly knows where he is or what is going on. He was aspirating and had worsened pneumonia so was placed on abx recently. He had one episode of loose stool this evening. Remains afebrile. H /H stable since blood given on . Video swallow study planned for tmrw. Updates on 04/18/17 Aspiration Initially was intubated and in the ICU; now extubated and intermittently on bipap and O2. patient had video swallow done on 04/17/17 - has moderate to severe esophageal dysmotility. Aspiration risk, should be on a slippery diet, HOB to remain elevated 30 minutes after meals and he should not lay down flat Oral care to include brushing before and after meals Small, frequent meals with rest breaks HCAP vs. Aspiration Pneumonia Acute COPD Exacerbation Tobacco Use Disorder Acute on Chronic Hypoxic Respiratory Failure He is currently on oxygen, which we can keep on a PRN basis. (from records, it seems patient is on O2 chronically) Due to aspiration and likely hospital acquired vs. aspiration pneumonia - will be discharged on Augmentin. We can stop prednisone; he has been tapered off as per pulmonology. Should be on nocturnal bipap if needed. Acute Embolic CVA Appreciate neurology input for his CVA earlier during hospital admission. This was possibly an embolic event; though no arrhythmias noted on tele. Repeat head CT showed no hemorrhagic conversion and no further ischemic events. At this point, no antiplatelets due to low platelet count. Today (04/18) - platelets are greater than >100; should monitor and be stable prior to starting No anticoagulation as per neurology and cardiology. Cardiomyopathy; Acute Systolic CHF Possible Atrial Arrhythmias/Tachycardia He's had cardiomyopathy - three echocardiograms done during this admission; initially showing normal LVEF, then moderate LVEF dysfunction, and then mild LVEF dysfunction. possibility of an LV thrombus as per cardiology. No anticoagulation due to bleed risk and thrombocytopenia. Plan for discharge on b-krunal, metoprolol succinate 25mg daily and amiodarone 200mg daily (due to possibility of an atrial arrhythmia causing embolic CVA) continue diuretics (acetazolamide and Lasix) Acute Urinary Retention Acute Kidney Injury - resolved Ureteral Calculus continue to have Cabral catheter, plan for outpatient urology consultation no stenting for the ureteral calculus; kidney function has improved from prior - can have outpatient urology follow-up Anemia/Thrombocytopenia hold blood thinners and antiplatelets as above s/p three units pRBCs during this admission monitor Hgb and platelets outpatient hematology follow-up Ambulatory Dysfunction patient is severely deconditioned from the prolonged hospital stay s/p CVA and motor weakness persists continued PT/OT while inpatient plan for d/c to [facility]) for rehab Malnutrition BMI is around 18 maxillofacial prosthetics dentist consulted should have boost or ensure at least twice daily DVT ppx SCDs FULL CODE Continued [facility] stay due to: multiple IV medications needed, home environment unsafe for pt, other (acute care continues) Discharge planning: uncertain Total time spent on discharge = 60 minutes This includes examination of the patient, discharge planning, medication reconciliation, and communication with other providers. Discharge Instructions Diet Recommendations: * Dental soft diet, "slippery". Avoid foods that are dry, thick, pasty, doughy. Use condiments such as sauce/gravy to keep foods moist. * Aspiration and GERD precautions, straws ok, fully upright for meals and for 30 minutes after meals. Head of bed elevated to at least 30 degrees at all times, to include while sleeping. DO NOT LAY FLAT. * Stringent oral care to include brushing all surfaces of the mouth and tongue prior to and after meals, as well as before bed to reduced oral bacteria that can be aspirated in saliva. * Small frequent meals, rest breaks. Alternate solids and liquids as needed. Slow rate. Medication Recommendations: * Patient to be discharged on Augmentin BID for seven days for possible aspiration pneumonia. * Patient to be discharged on metoprolol and amiodarone for possible arrhythmias. * Duonebs changed to Xopenex to prevent tachycardia * Started on Flomax Other Recommendations: * patient is likely dependent on O2 due to severe COPD * May need bipap nocturnally and PRN throughout the day * Cabral catheter to remain in until outpatient urology follow-up due to urinary retention * will need PT/OT and speech therapy * should check labs q3-5 days to check electrolytes, Hgb, platelets * Outpatient cardiology, neurology, urology follow-up
[2017-04-18 11:42] VITALS: BP 121/59; PULSE 93; TEMP 36.5; O2SAT 93
[2017-05-31] MEDS ORDERED: ALPR-411 PO (00:03)
[2017-05-31] MEDS ORDERED: PRED10TA PO (00:07)
[2017-05-31] MEDS ORDERED: LACT10SO17 PO (00:07)
[2017-05-31] MEDS ORDERED: CRD200 PO (00:08)
[2017-05-31] MEDS ORDERED: MAGN1TAB41 PO (00:10)
[2017-05-31] MEDS ORDERED: METO25TA3 PO (00:10)
[2017-05-31] MEDS ORDERED: ATRINSX PO (00:13)
[2017-05-31] MEDS ORDERED: LEVA1.255 NEB (00:14)
[2017-05-31] MEDS ORDERED: TAMS0.4C38 PO (00:18)
[2017-05-31] MEDS ORDERED: ACET-1693 PO (00:18)
[2017-05-31] MEDS ORDERED: ACET-1175 PO (00:18)
[2017-05-31] MEDS ORDERED: INSU100I2 SQ (00:29)
[2017-05-31] MEDS ORDERED: FLUT0.15 NAE (00:33)
[2017-05-31] MEDS ORDERED: IPRASOL4 INH (00:33)
[2017-05-31] MEDS ORDERED: PRS5 PO (00:33)
[2017-05-31] MEDS ORDERED: OXGN (12:23)
== END 2017-04-18 15:45 | DRG 207 ==
LOC: EDBD 17:11 → C.EDC 17:12 → C.2E 19:31 → ENRESERV 19:51 → C.MED 03-20 00:40 → ENRESERV 03-25 04:54 → C.MSICU 03-25 05:02 → ENRESERV 03-31 15:29 → C.2E 03-31 17:08 → ENRESERV 04-04 13:43 → C.4E 04-04 14:39 → ENRESERV 04-07 11:46 → C.2E 04-07 12:56
PROVIDERS: ADMIT Hospitalist; ATTEND Family Medicine
PROC: 0BH18EZ Insertion of Endotracheal Airway into Trachea, Via Natural or Artificial Opening Endoscopic (ICD-10-PCS; principal; 2017-03-25)
PROC: 5A1955Z Respiratory Ventilation, Greater than 96 Consecutive Hours (ICD-10-PCS; principal; 2017-03-25)
PROC: 0BH18EZ Insertion of Endotracheal Airway into Trachea, Via Natural or Artificial Opening Endoscopic (ICD-10-PCS; 2017-03-25)
DX: J96.21 Acute and chronic respiratory failure with hypoxia (principal); J18.9 Pneumonia, unspecified organism; D61.811 Other drug-induced pancytopenia; J69.0 Pneumonitis due to inhalation of food and vomit; I26.99 Other pulmonary embolism without acute cor pulmonale; I63.40 Cerebral infarction due to embolism of unspecified cerebral artery; I21.4 Non-ST elevation (NSTEMI) myocardial infarction; I50.21 Acute systolic (congestive) heart failure; J44.1 Chronic obstructive pulmonary disease with (acute) exacerbation; J44.0 Chronic obstructive pulmonary disease with (acute) lower respiratory infection; N17.9 Acute kidney failure, unspecified; D80.3 Selective deficiency of immunoglobulin G [IgG] subclasses; P91.60 Hypoxic ischemic encephalopathy [HIE], unspecified; N20.1 Calculus of ureter; B37.49 Other urogenital candidiasis; G81.91 Hemiplegia, unspecified affecting right dominant side; E87.3 Alkalosis; E46 Unspecified protein-calorie malnutrition; Z68.1 Body mass index [BMI] 19.9 or less, adult; B44.9 Aspergillosis, unspecified; J96.22 Acute and chronic respiratory failure with hypercapnia; I27.23 Pulmonary hypertension due to lung diseases and hypoxia; F17.210 Nicotine dependence, cigarettes, uncomplicated; Z99.81 Dependence on supplemental oxygen; T50.2X5A Adverse effect of carbonic-anhydrase inhibitors, benzothiadiazides and other diuretics, initial encounter; D69.6 Thrombocytopenia, unspecified; R09.2 Respiratory arrest; R56.9 Unspecified convulsions; I48.0 Paroxysmal atrial fibrillation; I25.5 Ischemic cardiomyopathy; I12.9 Hypertensive chronic kidney disease with stage 1 through stage 4 chronic kidney disease, or unspecified chronic kidney disease; N18.9 Chronic kidney disease, unspecified; R13.10 Dysphagia, unspecified; K22.4 Dyskinesia of esophagus; K21.9 Gastro-esophageal reflux disease without esophagitis; N40.0 Benign prostatic hyperplasia without lower urinary tract symptoms; R35.0 Frequency of micturition; R31.0 Gross hematuria; N47.1 Phimosis; K80.20 Calculus of gallbladder without cholecystitis without obstruction; R73.9 Hyperglycemia, unspecified; F41.9 Anxiety disorder, unspecified; K59.00 Constipation, unspecified; L98.8 Other specified disorders of the skin and subcutaneous tissue; Z91.19 Patient's noncompliance with other medical treatment and regimen; Z86.010 Personal history of colon polyps; Z87.19 Personal history of other diseases of the digestive system; Z87.442 Personal history of urinary calculi; Z79.2 Long term (current) use of antibiotics; Z79.51 Long term (current) use of inhaled steroids; Z79.82 Long term (current) use of aspirin; Z79.899 Other long term (current) drug therapy; Z83.6 Family history of other diseases of the respiratory system; Z82.49 Family history of ischemic heart disease and other diseases of the circulatory system; Z83.3 Family history of diabetes mellitus

== ENCOUNTER 2017-05-29 23:30 | Emergency (ER) | payer OTHER ==
[~2017-05-29] VITALS: Ht 177.8 cm; Wt 58.4 kg
[~2017-05-29 23:30] MED LIST changes: -ASPEC81 PO; -ASTN; -AZIT-57 PO; +CRD200 PO; -DMX250 PO; +Enteral Nutrition Formula PO; +FLM4 PO; -IPRASOL34 INH; +LCTL45 PO; +LEVO-14 PO; -LPR25 PO; +LPT40 PO; +MGNO400 PO; -NCDT14 TD; -OMEP40CA PO; +PANT40TA PO; -PRED10TA PO; -SPRIN INH; +TPRSR25 PO; +TRMCR130WC TD; +XNX5 PO; +XPNINS1255 INH; -[UNRECOGNIZED DRUG - CODE] INH
[2017-05-29 23:38] VITALS: TEMP 37.1; Ht 177.8 cm; Wt 58.4 kg
[2017-05-30 00:06] LABS: HEMATOCRIT 27.3 % (42-52); HEMOGLOBIN 8.8 g/dL (14.0-18.0); MEAN CELL VOLUME 97.2 fL (80-100); MEAN CORPUSCULAR HEMOGLOBIN 31.3 pg (25-34); MEAN CORPUSCULAR HGB CONC 32.2 g/dl (32-36); PLATELET COUNT 110 K/uL (130-400); RED CELL DISTRIBUTION WIDTH CV 14.8 % (11.5-14.5); RED CELL DISTRIBUTION WIDTH SD 53.2 fL (36.4-46.3); WHITE BLOOD COUNT 6.18 K/uL (4.8-10.8)
[2017-05-30] MEDS ORDERED: NUTR1LIQ52 PO (00:20)
[2017-05-30 00:25] LABS: ALBUMIN 2.5 gm/dl (3.4-5.0); CALCIUM 8.2 mg/dl (8.5-10.1); CREATININE 1.39 mg/dl (0.60-1.40); POTASSIUM 4.2 mmol/L (3.5-5.1)
[2017-05-30 00:28] LABS: TOTAL PROTEIN 6.2 gm/dl (6.4-8.2)
[2017-05-30 00:29] LABS: BASO % 0.2 %; BASO ABS # 0.01 K/uL (0-0.2); EOS % 1.6 %; IG# 0.02 K/uL (0.00-0.02); LYMPH % 14.4 %; LYMPH ABS # 0.89 K/uL (1.2-3.4); MONO % 8.7 %; MONO ABS # 0.54 K/uL (0.11-0.59); NEUT % 74.8 %; NEUT ABS # 4.62 K/uL (1.4-6.5)
[2017-05-30] MEDS ORDERED: CLR10 PO (00:33)
--- NOTE | 2017-05-30 00:56 | EMERGENCY ROOM VISIT NOTE ---
History Report prepared by Dimple: Mónica Lal Under the Supervision of: Dr. Maricruz Matos M.D. First contact with patient: 23:31 Chief Complaint: OTHER COMPLAINT Stated Complaint: PNEUMOTHORAX History of Present Illness The patient is a 71 year old male who presents to the Emergency Room with complaints of an episode of a pneumothorax occurring three days ago. The patient 's son states that they noticed he was coughing more than normal three days ago. They report that he went to [place] and had x-rays done that showed he has a pneumothorax. The patient complains of shortness of breath, chest pain, and memory troubles. The patient denies fever. The patient's son notes that he has had the catheter for 2.5 months and only had it changed once. He states that he has a UTI that his PCP had prescribed antibiotics for, but notes that the jail has not been giving it. He notes that he has a history of rouse. Source of History: patient Onset: 3 days ago Position: other (global) Quality: other (pneumothorax) Timing: other (episode) Associated Symptoms: + cough, + chest pain, + SOB, + urinary symptoms, No fevers Note: The patient complains of memory problems. Review of Systems See HPI for pertinent positives & negatives. A total of 10 systems reviewed and were otherwise negative. Past Medical & Surgical Medical Problems: (1) BPH (benign prostatic hyperplasia) (2) Chronic respiratory failure (3) Diverticular disease of colon (4) Emphysema (5) GERD (gastroesophageal reflux disease) (6) History of stroke (7) Respiratory failure, acute (8) Tobacco use Surgical Problems: (1) H/O colonoscopy (2) H/O esophagogastroduodenoscopy (3) History of bronchoscopy Family History Diabetes mellitus FH: heart disease Social History Smoking Status: Current Every Day Smoker Alcohol Use: none Marital Status: single Housing Status: jail Occupation Status: retired Current/Historical Medications Scheduled Acetazolamide (Acetazolamide), 250 MG PO BID Amiodarone HCl (Amiodarone HCl), 200 MG PO DAILY Finasteride (Finasteride), 5 MG PO DAILY Fluticasone Propionate (Nasal) (Flonase Allergy Relief), 2 SPRAYS MERVAT DAILY Furosemide (Lasix), 20 MG PO DAILY Home O2 Therapy (Oxygen), 2 LITERS NA CONTINOUS Insulin Lispro (Human) (Humalog Kwikpen), SQ ACHS Ipratropium-Albuterol (Duoneb), 1 TREATMENT INH QID Levofloxacin (Levaquin), 750 MG PO qod Loratadine (Claritin), 10 MG PO once Magnesium Oxide (Magnesium), 400 MG PO QAM Metoprolol Succ (Toprol Xl) (Toprol-Xl), 25 MG PO QAM Nutritional Supplements (Nutritional Shake), 1 PO BID Nystatin (Topical) (Nyamyc), 1 APPLN TOP TID Prednisone (Prednisone), 10 MG PO DAILY Prednisone (Prednisone), 10 MG PO DIRECTED Tamsulosin Hcl (Flomax), 0.4 MG PO HS Scheduled PRN Acetaminophen (Tylenol), 650 MG PO Q4 PRN for pain 1-5 Acetaminophen Tab (Tylenol), 650 MG PO Q4 PRN for temp>100.4 Alprazolam (Xanax), 0.5 MG PO Q8 PRN for Anxiety Ipratropium Hughes (Atrovent 0.02% Soln), 1 INHA PO Q4 PRN for sob/cough Lactulose (Chronulac), 30 ML PO Q6 PRN for Constipation Levalbuterol Hcl (Levalbuterol), 1 INHA NEB Q4 PRN for Shortness of Breath Allergies Coded Allergies: POLLEN (Verified Allergy, Unknown, SEASONAL ALLERGIES, 05/30/17) Lactose Intolerance (Verified Adverse Reaction, Intermediate, GI SYMPTOMS , 05/30/17) Physical Exam Vital Signs Date Time Temp Pulse Resp B/P (MAP) Pulse Ox O2 Delivery O2 Flow Rate FiO2 05/30/17 03:41 82 18 104/60 96 Nasal Cannula 2.0 05/30/17 03:21 77 21 100/53 96 Nasal Cannula 2.0 05/30/17 03:03 81 05/30/17 02:35 82 25 95/49 97 Nasal Cannula 2.0 05/30/17 00:49 137/73 05/30/17 00:30 91 24 97 Nasal Cannula 2.0 05/30/17 00:00 80 20 96 Nasal Cannula 2.0 05/29/17 23:38 37.1 85 18 127/73 88 Room Air 05/29/17 23:36 87 05/29/17 23:31 127/73 Physical Exam Vital signs reviewed. General: Chronically ill-appearing, short of breath, in no significant distress. HEENT: No scleral icterus, PERRLA, neck supple. Atraumatic. Cardiovascular: Regular rate and rhythm, no extra sounds. Pulmonary: Coarse breath sounds that are diminished bilaterally, equal breath sounds, normal work of breathing. Nasal canula oxygen in place. Abdomen: Soft, nontender, nondistended, positive bowel sounds. Musculoskeletal: Atraumatic, no peripheral edema. Neurologic: Patient awake alert and oriented x 3 Skin: Warm, dry, no rash Medical Decision & Procedures ER Provider Diagnostic Interpretation: Radiology results as stated below per my review and radiologist interpretation: CHEST X-RAY: The results were interpreted by me. No evidence of pneumothorax. Trachea is midline. Likely large blebs to the right apex. Chronic interstitial change including the right base. Compared to x-ray on 04/14/2017. CT CHEST Without Contrast: Compared to 03/19/2017. Redemonstration of extensive emphysematous changes. Right greater than left lower lung infiltrates with consolidation in the right lower lobe. Correlate clinically for pneumonia. Trace right pleural effusion. No evidence of pneumothorax. Query left nephrolithiasis. Additional findings similar to prior study. Radiologist: Belkys Jackman MD Study ready at 00:54 and initial results transmitted at 01:22. Laboratory Results 05/29/17 23:54 Red Blood Count 2.81, Mean Corpuscular Volume 97.2, Mean Corpuscular Hemoglobin 31.3, Mean Corpuscular Hemoglobin Concent 32.2, Mean Platelet Volume 9.0, Neutrophils (%) (Auto) 74.8, Lymphocytes (%) (Auto) 14.4, Monocytes (%) (Auto) 8.7, Eosinophils (%) (Auto) 1.6, Basophils (%) (Auto) 0.2, Neutrophils # (Auto) 4.62, Lymphocytes # (Auto) 0.89, Monocytes # (Auto) 0.54, Eosinophils # (Auto) 0.10, Basophils # (Auto) 0.01 05/29/17 23:54 Test 05/29/17 23:35 05/29/17 23:54 Urine Color YELLOW Urine Appearance TURBID (CLEAR) Urine pH >= 9.0 (4.5-7.5) Urine Specific Minerva 1.015 (1.000-1.030) Urine Protein 2+ (NEG) Urine Glucose (UA) NEG (NEG) Urine Ketones NEG (NEG) Urine Occult Blood TRACE (NEG) Urine Nitrite POS (NEG) Urine Bilirubin NEG (NEG) Urine Urobilinogen NEG (NEG) Urine Leukocyte Esterase LARGE (NEG) Urine WBC (Auto) >30 /hpf (0-5) Urine RBC (Auto) 5-10 /hpf (0-4) Urine Hyaline Casts (Auto) 1-5 /lpf (0-5) Urine Epithelial Cells (Auto) 5-10 /lpf (0-5) Urine Bacteria (Auto) 4+ (NEG) White Blood Count 6.18 K/uL (4.8-10.8) Red Blood Count 2.81 M/uL (4.7-6.1) Hemoglobin 8.8 g/dL (14.0-18.0) Hematocrit 27.3 % (42-52) Mean Corpuscular Volume 97.2 fL (80-100) Mean Corpuscular Hemoglobin 31.3 pg (25-34) Mean Corpuscular Hemoglobin Concent 32.2 g/dl (32-36) Platelet Count 110 K/uL (130-400) Mean Platelet Volume 9.0 fL (7.4-10.4) Neutrophils (%) (Auto) 74.8 % Lymphocytes (%) (Auto) 14.4 % Monocytes (%) (Auto) 8.7 % Eosinophils (%) (Auto) 1.6 % Basophils (%) (Auto) 0.2 % Neutrophils # (Auto) 4.62 K/uL (1.4-6.5) Lymphocytes # (Auto) 0.89 K/uL (1.2-3.4) Monocytes # (Auto) 0.54 K/uL (0.11-0.59) Eosinophils # (Auto) 0.10 K/uL (0-0.5) Basophils # (Auto) 0.01 K/uL (0-0.2) RDW Standard Deviation 53.2 fL (36.4-46.3) RDW Coefficient of Variation 14.8 % (11.5-14.5) Immature Granulocyte % (Auto) 0.3 % Immature Granulocyte # (Auto) 0.02 K/uL (0.00-0.02) Red Blood Cell Morphology Unremarkable Anion Gap 3.0 mmol/L (3-11) Est Creatinine Clear Calc Drug Dose 39.1 ml/min Estimated GFR () 57.9 Estimated GFR (Non- 49.9 BUN/Creatinine Ratio 20.2 (10-20) Calcium Level 8.2 mg/dl (8.5-10.1) Total Bilirubin 0.6 mg/dl (0.2-1) Direct Bilirubin 0.1 mg/dl (0-0.2) Aspartate Amino Transf (AST/SGOT) 16 U/L (15-37) Alanine Aminotransferase (ALT/SGPT) 26 U/L (12-78) Alkaline Phosphatase 56 U/L (45-117) Total Protein 6.2 gm/dl (6.4-8.2) Albumin 2.5 gm/dl (3.4-5.0) Laboratory results per my review. Medications Administered Medications (Trade) Dose Ordered Sig/Rosemary Route Start Time Stop Time Status Last Admin Dose Admin Albuterol/ Ipratropium (Duoneb) 3 ml NOW STAT INH 05/30/17 01:34 05/30/17 01:55 DC 05/30/17 01:58 3 ML Methylprednisolone Sodium Succinate (Solu-Medrol IV) 125 mg NOW STAT IV 05/30/17 01:34 05/30/17 01:55 DC 05/30/17 01:58 125 MG Levofloxacin (Levaquin / D5W) 750 mg NOW STAT IV 05/30/17 01:34 05/30/17 01:55 DC 05/30/17 01:58 750 MG ECG Indication: SOB/dyspnea Rate (beats per minute): 83 Rhythm: normal sinus Findings: nonspecific-ST abn, PVC, other (poor baseline quality, notmal AK intervals) Change: Patient's electrocardiogram interpreted by me. ED Course 2336: Past medical records reviewed. The patient was evaluated in room C7. A complete history and physical examination was performed. 0134: Ordered Levofloxacin 750 mg IV, Solu-Medrol IV 125 mg IV, Duoneb 3 ml INH. 0303: Upon reevaluation, the patient appeared to have improvement of his symptoms. I discussed findings with him. He verbalized agreement of the treatment plan. The patient was discharged home. Medical Decision Differential diagnosis: Etiologies such as infections, reactive airway disease, pneumonia, pneumothorax , COPD, CHF, cardiac ischemia, pulmonary embolism, musculoskeletal, gastrointestinal, as well as others were entertained. This patient was evaluated and appeared to be in no significant distress. The patient does have a slightly increased work of breathing on 2 L nasal cannula. His oxygenation has remained stable. Patient's lung sounds are diminished but coarse bilaterally. Chest x-ray was performed and reveals significantly diminished lung markings in the right greater than left apices. I do not think that this represents a pneumothorax as described on the outside hospital x-ray report. The patient has significant bullae documented on previous x-rays. A CT scan of the chest was performed given the above question, it confirms a large blebs without evidence of pneumothorax. Patient states he does not feel well. He was given a nebulizer treatment, IV Solu-Medrol and IV Levaquin. Due to his decreased renal function, and the Levaquin will need to be dosed 750 mg every other day for 7 days. The patient was placed on a prednisone taper. Perineal care was discussed with nursing staff. He has a yeast dermatitis and will require more diligent perineal care as well as antifungal treatment. Patient's urinalysis is concerning for infection. The Levaquin will assist with this treatment as well however previous urine culture results of grown out Treva. Cultures are again pending. Patient was discharged back to his nursing facility for further care. He will follow-up with his PCP and return to the ER for worsening of symptoms or any medical concerns. Medication Reconcilliation Current Medication List: was personally reviewed by me Blood Pressure Screening Patient's blood pressure: Normal blood pressure Blood pressure disposition: Did not require urgent referral Impression Primary Impression: COPD exacerbation Additional Impressions: Perineal irritation Yeast dermatitis of penis UTI (urinary tract infection) Scribe Attestation The scribe's documentation has been prepared under my direction and personally reviewed by me in its entirety. I confirm that the note above accurately reflects all work, treatment, procedures, and medical decision making performed by me. Departure Information Dispostion Home / Self-Care Prescriptions Nystatin (Topical) ([facility]) 100,000 Unit/Gm Pow 1 APPLN TOP TID, #60 GM Prov: Maricruz Matos M.D. 05/30/17 Prednisone (Prednisone) 10 Mg Tab 10 MG PO DIRECTED, #31 TAB Prednisone 40 mg daily for 4 days, 30 mg daily for 3 days, 20 mg daily for 2 days, 10 mg daily for 2 days. Prov: Maricruz Matos M.D. 05/30/17 Levofloxacin (Levaquin) 750 Mg Tab 750 MG PO qod, #3 TAB Prov: Maricruz Matos M.D. 05/30/17 Referrals Hamzah Ashley M.D. (PCP) Forms HOME CARE DOCUMENTATION FORM, IMPORTANT VISIT INFORMATION, WORK / SCHOOL INSTRUCTIONS Patient Instructions [facility] Additional Instructions Diagnosis: COPD exacerbation, perineal irritation, UTI Levaquin 750 mg every other day for 3 more doses. Start Sunday morning, 06/01/17 Continue inhalers as prescribed. Prednisone 40 mg for 4 days, 30 mg for 3 days, 2000 g for 2 days, 10 mg for 2 days Nystatin powder to the perineum 2-3 times daily for the next 10 days. Please be sure to wash and dry the glans penis at least daily. The foreskin will need to be extended over the head of the penis. Contact your physician for reevaluation this week. Return to the ER for worsening of symptoms or any medical concerns. Problem Qualifiers
[2017-05-30] MEDS ORDERED: METHYLPREDNISOLONE 125 MG VIAL IV STA (01:34)
[2017-05-30] MEDS ORDERED: LEVAQUIN 750MG / 150ML D5W IV STA (01:34)
[2017-05-30] MEDS ORDERED: ALBUT/IPRATROP 3MG/0.5MG NEB 3 ML VIAL INH STA (01:34)
[2017-05-30] MEDS ORDERED: PRED10TA PO (03:17)
[2017-05-30] MEDS ORDERED: NYST100016 TOP (03:17)
[2017-05-30] MEDS ORDERED: LEVO1TAB35 PO (03:17)
[2017-05-30 03:41] VITALS: BP 104/60; PULSE 82; O2SAT 96
--- NOTE | 2017-05-30 07:19 | DIAGNOSTIC IMAGING REPORT ---
CHEST ONE VIEW PORTABLE CLINICAL HISTORY: Pneumothorax on outside XR. COMPARISON STUDY: Chest CT March 19, 2017 and chest radiograph April 14, 2017. FINDINGS: Severe bullous emphysema within the lungs, greater on the right, is noted. This is unchanged since prior exam. There is no pneumothorax. There is right lower lung airspace opacity. Cardiomediastinal silhouette is unremarkable. There is no evidence for pulmonary edema. IMPRESSION: 1. Severe bullous emphysema, greater on the right. No pneumothorax. 2. Right lower lung airspace opacity which could reflect pneumonia or atelectasis. Electronically signed by: Mac Barron M.D. 05/30/2017 7:17 AM Dictated Date/Time: 05/30/2017 7:16 AM
--- NOTE | 2017-05-30 07:31 | DIAGNOSTIC IMAGING REPORT ---
(CHEST) THORAX WITHOUT CT DOSE: 233.75 mGy.cm CLINICAL HISTORY: 71 years-old Male with increased SOB, R bleb, OSH concern for PTX. Acute shortness of breath TECHNIQUE: Multiaxial CT images of the chest were performed without contrast. A dose lowering technique was utilized adhering to the principles of ALARA. COMPARISON: Chest radiograph 05/29/2017, CT chest 03/19/2017. FINDINGS: Heterogeneous again appears enlarged. Mildly enlarged right hilar lymph node measures 1.3 x 1.0 cm. This is nonspecific and may be reactive. Prominent 7 mm left paratracheal lymph node is also noted. Mild multichamber cardiac enlargement. Mural fibrofatty changes along left ventricular apex suggesting prior infarction. Coronary arterial disease. Mild to moderate atherosclerosis of the thoracic aorta without aneurysm. Trace right pleural effusion with right greater than left bibasilar patchy consolidative opacities with areas of bibasilar bronchial wall thickening with mild mucoid impaction. Respiratory motion limits evaluation of the lung bases. Patchy consolidative opacities are also noted within the right upper lobe. Severe bullous emphysematous changes redemonstrated within the upper lungs are predominant distribution. There is very little lung parenchyma within the right lung apex. No pneumothorax. No definite focal pulmonary nodules or pulmonary masses identified. Mucoid secretions are noted throughout the trachea and bilateral bronchi. Nephrolithiasis of the left kidney. Indeterminate exophytic 6 mm lesion with slightly increased attenuation is seen involving the mid posterior spleen which is unchanged. Mild bilateral gynecomastia. Multilevel degenerative changes of the spine. IMPRESSION: 1. Right greater than left consolidative opacities of the lower lobes with additional subsegmental consolidative opacities of the right upper lobe suggest pneumonia or aspiration pneumonitis. Additionally there is evidence of bronchitis with areas of bibasilar bronchial mucoid impaction. 2. Severe upper lobe predominant bullous emphysema redemonstrated without evidence of pneumothorax. 3. Trace right pleural effusion. 4. Mild cardiomegaly. Electronically signed by: Ariel Ramirez M.D. 05/30/2017 7:29 AM Dictated Date/Time: 05/30/2017 7:23 AM
[2017-05-31] MEDS ORDERED: ALPR-411 PO (00:03)
[2017-05-31] MEDS ORDERED: LACT10SO17 PO (00:07)
[2017-05-31] MEDS ORDERED: PRED10TA PO (00:07)
[2017-05-31] MEDS ORDERED: CRD200 PO (00:08)
[2017-05-31] MEDS ORDERED: MAGN1TAB41 PO (00:10)
[2017-05-31] MEDS ORDERED: METO25TA3 PO (00:10)
[2017-05-31] MEDS ORDERED: ATRINSX PO (00:13)
[2017-05-31] MEDS ORDERED: LEVA1.255 NEB (00:14)
[2017-05-31] MEDS ORDERED: ACET-1693 PO (00:18)
[2017-05-31] MEDS ORDERED: ACET-1175 PO (00:18)
[2017-05-31] MEDS ORDERED: TAMS0.4C38 PO (00:18)
[2017-05-31] MEDS ORDERED: INSU100I2 SQ (00:29)
[2017-05-31] MEDS ORDERED: IPRASOL4 INH (00:33)
[2017-05-31] MEDS ORDERED: FLUT0.15 NAE (00:33)
[2017-05-31] MEDS ORDERED: PRS5 PO (00:33)
[2017-05-31] MEDS ORDERED: OXGN (12:23)
[2017-05-31] MEDS ORDERED: DOXY100T PO (15:09)
[2017-05-31] MEDS ORDERED: FURO-85 PO (18:14)
[2017-05-31] MEDS ORDERED: ACET-1325 PO (18:14)
--- NOTE | 2017-06-01 12:21 | Pharmacy Progress Note ---
ED Pharmacist Culture FollowUp Date of Service: Jun 01, 2017. Patient was sent home with a prescription for levofloxacin 750mg q48h X 3 doses , which should cover the enterobacter growing from the patient's urine culture.
== END 2017-05-30 03:38 | disposition home or self-care (01) ==
LOC: EDBD 23:30 → C.EDC 23:31 → C.EDA 05-30 03:38
DX: J44.1 Chronic obstructive pulmonary disease with (acute) exacerbation (principal); L29.3 Anogenital pruritus, unspecified; B37.49 Other urogenital candidiasis; N39.0 Urinary tract infection, site not specified; I49.3 Ventricular premature depolarization; R07.9 Chest pain, unspecified; K21.9 Gastro-esophageal reflux disease without esophagitis; Z79.4 Long term (current) use of insulin; Z79.899 Other long term (current) drug therapy; Z99.81 Dependence on supplemental oxygen; Z86.73 Personal history of transient ischemic attack (TIA), and cerebral infarction without residual deficits; Z87.09 Personal history of other diseases of the respiratory system; Z87.19 Personal history of other diseases of the digestive system; Z82.49 Family history of ischemic heart disease and other diseases of the circulatory system; Z83.3 Family history of diabetes mellitus; F17.200 Nicotine dependence, unspecified, uncomplicated

== ENCOUNTER 2017-05-31 14:22 | Inpatient (IN) | payer OTHER ==
[~2017-05-31] VITALS: Ht 177.8 cm; Wt 56.4 kg
[2017-05-31] VITALS (10 sets, daily range): BP systolic 111–161; BP diastolic 52–81; PULSE 79–94; TEMP 36.8; O2SAT 90–100; BMI 17.5
[~2017-05-31 14:22] MED LIST changes: +ACET-1175 PO; +ACET-1693 PO; +ALPR-411 PO; +ATRINSX PO; +CLR10 PO; -DOXA-10 PO; -Enteral Nutrition Formula PO; -FLM4 PO; +FLUT0.15 NAE; -GFNSR600 PO; +INSU100I2 SQ; -IPRA1AER2 INH; +IPRASOL4 INH; +LACT10SO17 PO; -LCTL45 PO; +LEVA1.255 NEB; -LEVO-14 PO; +LEVO1TAB35 PO; -LPT40 PO; +MAGN1TAB41 PO; +METO25TA3 PO; -MGNO400 PO; +NUTR1LIQ52 PO; +NYST100016 TOP; +OXGN; -PANT40TA PO; -POTA10CA28 PO; +PRED10TA PO; +PRS5 PO; -SYMIN160 INH; +TAMS0.4C38 PO; -TPRSR25 PO; -TRMCR130WC TD; -XNX5 PO; -XPNINS1255 INH
[2017-05-31 15:09] LABS: HEMATOCRIT 31.6 % (42-52); HEMOGLOBIN 9.9 g/dL (14.0-18.0); MEAN CELL VOLUME 98.1 fL (80-100); MEAN CORPUSCULAR HEMOGLOBIN 30.7 pg (25-34); MEAN CORPUSCULAR HGB CONC 31.3 g/dl (32-36); MEAN PLATELET VOLUME 10.3 fL (7.4-10.4); PLATELET COUNT 171 K/uL (130-400); RED CELL DISTRIBUTION WIDTH CV 14.6 % (11.5-14.5); RED CELL DISTRIBUTION WIDTH SD 52.5 fL (36.4-46.3); WHITE BLOOD COUNT 9.54 K/uL (4.8-10.8)
[2017-05-31] MEDS ORDERED: DOXY100T PO (15:09)
[2017-05-31 15:10] LABS: ALBUMIN 2.7 gm/dl (3.4-5.0); CALCIUM 8.7 mg/dl (8.5-10.1); CREATININE 1.4 mg/dl (0.60-1.40); INR 0.9 (0.9-1.1)
--- NOTE | 2017-05-31 15:11 | DIAGNOSTIC IMAGING REPORT ---
CHEST ONE VIEW PORTABLE CLINICAL HISTORY: sob dyspnea COMPARISON STUDY: 05/29/2017 FINDINGS: Emphysematous change throughout. Large and bleb changes right upper lung unchanged. Bibasilar parenchymal infiltrative changes stable. Moderate diaphragmatic flattening also stable. IMPRESSION: 1. Diffuse emphysematous change. 2. Diffuse bibasilar infiltrative and/or fibrotic change unaltered from the prior exam. 3. Unchanging large bleb right upper lung. The above report was generated using voice recognition software. It may contain grammatical, syntax or spelling errors. Electronically signed by: Sukh England M.D. 05/31/2017 3:10 PM Dictated Date/Time: 05/31/2017 3:09 PM
[2017-05-31 15:12] LABS: TOTAL PROTEIN 6.8 gm/dl (6.4-8.2)
[2017-05-31] MEDS ORDERED: METHYLPREDNISOLONE 125 MG VIAL IV STA (15:21)
[2017-05-31] MEDS ORDERED: ALBUT/IPRATROP 3MG/0.5MG NEB 3 ML VIAL INH STA (15:21)
[2017-05-31 15:26] LABS: BASO % 0.1 %; BASO ABS # 0.01 K/uL (0-0.2); EOS % 0.1 %; EOS ABS # 0.01 K/uL (0-0.5); IG# 0.05 K/uL (0.00-0.02); LYMPH % 3.8 %; LYMPH ABS # 0.36 K/uL (1.2-3.4); MONO % 6.2 %; MONO ABS # 0.59 K/uL (0.11-0.59); NEUT % 89.3 %; NEUT ABS # 8.52 K/uL (1.4-6.5)
[2017-05-31] MEDS ORDERED: CEFEPIME IV 1,000 MG in DEXTROSE 5% 100ML 100 ML IV STA (15:27)
[2017-05-31] MEDS ORDERED: SODIUM CHLORIDE 0.9% 500ML 500 ML IV STA (15:27)
[2017-05-31] MEDS ORDERED: SODIUM CHLORIDE 0.9% 1000ML 1,000 ML IV STA (15:27)
--- NOTE | 2017-05-31 16:34 | DIAGNOSTIC IMAGING REPORT ---
ABD/PELVIS NO IV OR ORAL CONT CT DOSE: 639.31 mGycm HISTORY: Pain altered, lower abd pain, UTI TECHNIQUE: Multiaxial CT images of the abdomen and pelvis were performed without contrast. A dose lowering technique was utilized adhering to the principles of ALARA. COMPARISON STUDY: 03/23/2017 FINDINGS: Interval resolution of the bilateral pleural effusions on the prior exam. Focal consolidative infiltrate posterior aspect right costophrenic angle. There is unremarkable in overall configuration. Gallstone filled gallbladder. Pancreas is uniform. Findings of bilateral nephrocalcinosis. This is similar as compared to the prior study. No current evidence for hydronephrosis. The ureters are normal in course and caliber. A calcification previously described at the right ureterovesical junction appears to pass. Prostate is moderately enlarged. Cabral catheter is present within the bladder. A pattern is normal. Bowel pattern is nonobstructive. Chronic sigmoid diverticulosis. No evidence for acute diverticulitis. IMPRESSION: 1. Focal consolidative infiltrate right posterior costophrenic angle. 2. Gallstone filled gallbladder. 3. Bilateral nephrocalcinosis similar as compared to the prior study. 4. No evidence for an obstructing urinary tract calculus. 5. Chronic sigmoid diverticulosis with no evidence for acute diverticulitis. 6. note is made of a small right inguinal hernia containing a short segment loop of small bowel. This is considered nonobstructive finding, and is unchanged from the prior exam. 7. Normal appendix. The above report was generated using voice recognition software. It may contain grammatical, syntax or spelling errors. Electronically signed by: Sukh England M.D. 05/31/2017 4:33 PM Dictated Date/Time: 05/31/2017 4:25 PM
[2017-05-31 16:46] LABS: INFLUENZA B ANTIGEN Neg for Influ B (NEG)
[2017-05-31] MEDS ORDERED: FURO-85 PO (18:14)
[2017-05-31] MEDS ORDERED: ACET-1325 PO (18:14)
--- NOTE | 2017-05-31 19:01 | History and Physical ---
History & Physical Date & Time of Service: May 31, 2017 at 19:00 . Chief Complaint: cough, shortness of breath, confusion . Primary Care Physician: Hamzah Ashley M.D. . History of Present Illness Source: hospital records 71-year-old male followed by Dr. Rosen. History of severe O2 and steroid dependent COPD. Prolonged hospitalization in March-April for exacerbation of COPD attributed to bronchiectasis, acute kidney injury, strokes, and other problems. Transfer to [facility] on 04/18/17. Developed cough and shortness of breath on 05/29/17. Portable chest x-ray performed at [facility] interpreted demonstrating large right-sided pneumothorax. Referred to ED for evaluation. CT of chest demonstrated extensive bullous emphysema, no pneumothorax. He received methylprednisolone, levofloxacin, DuoNeb. Respiratory status improved and he returned to [facility] with instructions to take levofloxacin and prednisone taper. Worsening cough, dyspnea, and confusion today. Return to the ED for evaluation. Patient unable to provide additional history at the time of admission due to his condition. . Past Medical/Surgical History Chronic and Resolved Medical Problems: (1) BPH (benign prostatic hyperplasia) Status: Chronic (2) Chronic respiratory failure Status: Chronic (3) COPD (chronic obstructive pulmonary disease) Status: Chronic (4) Diverticular disease of colon Status: Chronic (5) Emphysema Status: Chronic (6) GERD (gastroesophageal reflux disease) Status: Chronic (7) History of stroke Status: Chronic (8) Systolic CHF, chronic Permanent Comment: systolic Status: Chronic (9) Tobacco use Status: Chronic (10) Urinary retention Status: Chronic Surgical Problems: (1) H/O colonoscopy Status: Chronic (2) H/O esophagogastroduodenoscopy Status: Chronic (3) History of bron .choscopy Status: Chronic Family History Diabetes mellitus FH: heart disease Social History Smoking Status: Current Some Day Smoker Alcohol Use: none Marital Status: single Housing status: lives alone Occupational Status: retired Immunizations History of Influenza Vaccine: Yes History of Tetanus Vaccine?: Unknown History of Pneumococcal: Yes Pneumococcal Date: Nov 04, 2008 History of Hepatitis B Vaccine: Unknown Allergies Coded Allergies: POLLEN (Verified Allergy, Unknown, SEASONAL ALLERGIES, 05/30/17) Lactose Intolerance (Verified Adverse Reaction, Intermediate, GI SYMPTOMS , 05/30/17) Home Medications Scheduled Acetazolamide (Acetazolamide), 250 MG PO BID Amiodarone HCl (Amiodarone HCl), 200 MG PO DAILY Doxycycline Hyclate (Doxycycline Hyclate), 1 TAB PO BID Finasteride (Finasteride), 5 MG PO DAILY Fluticasone Propionate (Nasal) (Flonase Allergy Relief), 2 SPRAYS MERVAT DAILY Furosemide (Lasix), 20 MG PO DAILY Home O2 Therapy (Oxygen), 2 LITERS NA CONTINOUS Insulin Lispro (Human) (Humalog Kwikpen), SQ ACHS Ipratropium-Albuterol (Duoneb), 1 TREATMENT INH QID Magnesium Oxide (Magnesium), 400 MG PO QAM Metoprolol Succ (Toprol Xl) (Toprol-Xl), 25 MG PO QAM Nystatin (Topical) (Nyamyc), 1 APPLN TOP TID Prednisone (Prednisone), 10 MG PO DAILY Tamsulosin Hcl (Flomax), 0.4 MG PO HS Scheduled PRN Acetaminophen (Tylenol), 650 MG PO Q4 PRN for pain 1-5 Acetaminophen Tab (Tylenol), 650 MG PO Q4 PRN for temp>100.4 Alprazolam (Xanax), 0.5 MG PO Q8 PRN for Anxiety Ipratropium [place] (Atrovent 0.02% Soln), 1 INHA PO Q4 PRN for sob/cough Lactulose (Chronulac), 30 ML PO Q6 PRN for Constipation Levalbuterol Hcl (Levalbuterol), 1 INHA NEB Q4 PRN for Shortness of Breath Review of Systems Unable to obtain due to patient's condition. . Physical Exam Vital Signs Date Time Temp Pulse Resp B/P (MAP) Pulse Ox O2 Delivery O2 Flow Rate FiO2 05/31/17 18:56 92 92 2.0 05/31/17 18:01 142/81 Nasal Cannula 3.0 05/31/17 17:57 100 28 94 05/31/17 17:27 103 25 05/31/17 17:01 161/67 05/31/17 16:57 102 25 94 05/31/17 16:01 134/61 05/31/17 15:57 99 32 96 05/31/17 15:52 97 25 133/64 96 Nasal Cannula 3.0 2/15/18 15:22 93 22 95 05/31/17 14:52 101 27 95 05/31/17 14:38 94 Nasal Cannula 3.0 05/31/17 14:37 94 Nasal Cannula 3.0 05/31/17 14:36 36.8 107 28 143/68 94 Nasal Cannula 3.0 05/31/17 14:35 107 05/31/17 14:25 97 Nasal Cannula 3.0 General Appearance: + severe distress, + cachetic Head: normocephalic, atraumatic Eyes: normal inspection, PERRL, EOMI, sclerae normal ENT: normal ENT inspection, + pertinent finding (wearing BiPAP) Neck: supple, no adenopathy, thyroid normal, trachea midline, + JVD Respiratory/Chest: + respiratory distress, + rhonchi, + wheezing Cardiovascular: regular rate, rhythm, + tachycardia, + pertinent finding ( distant heart sounds, no murmur, gallop, rub appreciated) Abdomen/GI: normal bowel sounds, non tender, soft, no organomegaly Extremities/Musculoskelatal: normal inspection, no calf tenderness, normal capillary refill Neurologic/Psych: + pertinent finding (confused; PERRL, EOMI; generalized weakness) Skin: warm/dry, no rash Lymphatic: no adenopathy (cervical) Diagnostics Laboratory Results Results Past 24 Hours Test 05/31/17 14:05 05/31/17 16:04 05/31/17 16:05 Range/Units White Blood Count 9.54 4.8-10.8 K/uL Red Blood Count 3.22 4.7-6.1 M/uL Hemoglobin 9.9 14.0-18.0 g/dL Hematocrit 31.6 42-52 % Mean Corpuscular Volume 98.1 80-100 fL Mean Corpuscular Hemoglobin 30.7 25-34 pg Mean Corpuscular Hemoglobin Concent 31.3 32-36 g/dl Platelet Count 171 130-400 K/uL Mean Platelet Volume 10.3 7.4-10.4 fL Neutrophils (%) (Auto) 89.3 % Lymphocytes (%) (Auto) 3.8 % Monocytes (%) (Auto) 6.2 % Eosinophils (%) (Auto) 0.1 % Basophils (%) (Auto) 0.1 % Neutrophils # (Auto) 8.52 1.4-6.5 K/uL Lymphocytes # (Auto) 0.36 1.2-3.4 K/uL Monocytes # (Auto) 0.59 0.11-0.59 K/uL Eosinophils # (Auto) 0.01 0-0.5 K/uL Basophils # (Auto) 0.01 0-0.2 K/uL RDW Standard Deviation 52.5 36.4-46.3 fL RDW Coefficient of Variation 14.6 11.5-14.5 % Immature Granulocyte % (Auto) 0.5 % Immature Granulocyte # (Auto) 0.05 0.00-0.02 K/uL Platelet Estimate NORMAL Polychromasia 1+ Hypochromasia PRESENT Basophilic Stippling OCCASIONAL Prothrombin Time 9.8 9.0-12.0 SECONDS Prothromb Time International Ratio 0.9 0.9-1.1 Activated Partial Thromboplast Time 25.0 21.0-31.0 SECONDS Partial Thromboplastin Ratio 1.0 Sodium Level 139 136-145 mmol/L Potassium Level 4.0 3.5-5.1 mmol/L Chloride Level 99 98-107 mmol/L Carbon Dioxide Level 36 21-32 mmol/L Anion Gap 4.0 3-11 mmol/L Blood Urea Nitrogen 27 7-18 mg/dl Creatinine 1.40 0.60-1.40 mg/dl Est Creatinine Clear Calc Drug Dose 38.8 ml/min Estimated GFR () 57.4 Estimated GFR (Non- 49.5 BUN/Creatinine Ratio 19.6 10-20 Random Glucose 155 70-99 mg/dl Calcium Level 8.7 8.5-10.1 mg/dl Total Bilirubin 0.4 0.2-1 mg/dl Aspartate Amino Transf (AST/SGOT) 14 15-37 U/L Alanine Aminotransferase (ALT/SGPT) 24 12-78 U/L Alkaline Phosphatase 60 45-117 U/L Troponin I 0.028 0-0.045 ng/ml Total Protein 6.8 6.4-8.2 gm/dl Albumin 2.7 3.4-5.0 gm/dl Globulin 4.1 2.5-4.0 gm/dl Albumin/Globulin Ratio 0.7 0.9-2 Arterial Blood pH 7.30 7.35-7.45 Arterial Blood Partial Pressure CO2 76 35-46 mmHg Arterial Blood Partial Pressure O2 93 80-95 mm/Hg Arterial Blood HCO3 36 19-24 mmol/L Arterial Blood Oxygen Saturation 95.7 90-95 % Arterial Blood Base Excess 8.3 -9-1.8 mEq/L Arterial Blood Gas Delivery 4 L Howard Test POS POS Influenza Type A Antigen Neg for Influ A NEG Influenza Type B Antigen Neg for Influ B NEG Diagnostic Radiology Chest x-ray reviewed by the undersigned and interpreted formally by Radiology: severe bullous emphysema, bibasilar densities CT of abdomen and pelvis demonstrated infiltrate right base, cholelithiasis, no evidence of renal calculi or urinary tract obstruction, sigmoid diverticulosis without diverticulitis, small right inguinal hernia without apparent obstruction , normal appendix. . EKG EKG performed at 1446 reviewed and demonstrated sinus tachycardia 107/minute, PVCs, baseline artifact, no acute ST changes. . Impression Assessment and Plan ACUTE ON CHRONIC RESPIRATORY FAILURE / COPD Acute on chronic hypercapnic respiratory failure + chronic hypoxic respiratory failure. Underlying severe COPD, O2 and steroid-dependent. Probable lower respiratory tract infection as discussed below. Patient received intravenous methylprednisolone 125 mg from EMS as well as an additional dose in the ED. Continue methylprednisolone at a dose of 40 mg IV every 8 hours, taper as tolerated to usual maintenance dose of prednisone. Levalbuterol/ipratropium nebs QID. BiPAP was initiated in the ED for ventilatory support; wean as tolerated. No intubation for worsening respiratory status as noted below. LOWER RESPIRATORY TRACT INFECTION Chest x-ray and CT of abdomen demonstrate basilar infiltrates. At risk for aspiration pneumonia. At risk for healthcare acquired pneumonia. At risk for Pseudomonas. Consider influenza. Patient initially received intravenous cefepime in the ED. Change antibiotic therapy to piperacillin/tazobactam for better anaerobic coverage. Check nasal MRSA swab; if positive, add coverage for MRSA; if negative, MRSA pneumonia very unlikely. Nasopharyngeal swab for influenza A/B antigen negative in the ED; retest with PCR assay for better sensitivity. ALTERED MENTAL STATUS Probable encephalopathy secondary to pulmonary infection and/or respiratory failure. Monitor. CHRONIC LEFT VENTRICULAR SYSTOLIC HEART FAILURE Appears to be compensated. Diurese PRN. CEREBROVASCULAR DISEASE Suffered stroke during March hospitalization, thought to be most likely embolic in nature. Not receiving antiplatelet meds because of previously noted thrombocytopenia. [place] to be high risk for anticoagulation. DM TYPE 2 Random blood sugar in ED 155. Anticipate elevated blood sugars secondary to acute illness and steroid therapy. Lantus/NovoLog per protocol. Transition to IV insulin per protocol if glycemic control not adequate. BPH / URINARY RETENTION Believe the patient has had a Cabral catheter for urinary retention since his last admission. Continue catheter, changed before discharge. VTE PROPHYLAXIS High risk for VTE. Subcutaneous enoxaparin with caution. RESUSCITATION STATUS Resuscitation status was full code during recent hospitalization. Patient completed a POLST form in his PCPs office in April indicating that he would like aggressive measures in the short-term, including mechanical ventilation, if there was a chance of meaningful recovery. Resuscitation status discussed with son in ED who is his closest family member. Apparently there is no formal durable POA. His son feels that resuscitation status should be DNR at this time based on patient's repeatedly expressed feelings that he no longer wishes to have extraordinary measures undertaken. Resuscitation status, therefore, "level 5" (DNR). Consult Palliative Care Medicine regarding further discussions and planning. DISPOSITION Admitted to ICU. Prognosis guarded. Consider transition to palliative/hospice care as discussed above. Anticipated return to skilled care if he survives current illness. . VTE Prophylaxis Risk Level: High Given or contraindicated: Enoxaparin (Lovenox)SQ
[2017-05-31] MEDS ORDERED: ICU PROTOCOL FOR HYPERGLYCEMIA PRN (19:15)
[2017-05-31] MEDS ORDERED: PIPERACILL/TAZOBAC CONSULT ACTIVE PRN (19:15)
[2017-05-31] MEDS ORDERED: LEVALBUTEROL 0.63MG/3 ML NEB INH PRN (19:45)
[2017-05-31] MEDS ORDERED: ALPRAZOLAM 0.5 MG TAB PO PRN (19:45)
--- NOTE | 2017-05-31 19:52 | Critical Care Consultation ---
Critical Care Consultation Date of Consultation: May 31, 2017. Attending Physician: Dr. Kelley Reason for Consultation: Confusion and Shortness of Breath History of Present Illness Meek De La Cruz is a 71yo male who presented to the ED today for worsening shortness of breath x 2-3 days. Pt had presented to [facility] ED 2 days ago for similar symptoms. Pt was treated in the ED with Solu-Medrol, Bi-Pap, and Duoneb. ABG was 7.30/76/93/36. Pt and son had discussion with providers regarding code status and decided he would not want to be intubated or undergo heroic measures. Pt is well known to the ICU staff having been hospitalized and intubated recently on 03/18 for one month with a witnessed seizure at which time his admitting ABG was 6.9 and CO2 > 130. Pt is on home O2 at 3L for Chronic Respiratory failure. Pt and family are very frustrated with pts recent health over the last few months. Pt has started to experience auditory and visual hallucinations since CVA during last admission. In the ICU, pt is resting comfortably on Bi-Pap answering questions appropriately, though he appears exhausted. Pt states he has felt feverish, chilled, with dry cough and muscle aches lately. He denies vomiting but has felt nauseous. States he hasn't been eating or drinking much. The patient denies headache, muscle weakness, numbness, change in vision, chest pain, palpitations, awareness of tachyarrhythmias, vomiting, bloody stools, diarrhea, constipation, abdominal pain, other changes in urine or bowel habits. Pt admits to feeling short of breath. Past Medical/Surgical History Medical Problems: BPH (benign prostatic hyperplasia) Pulmonary HTN Urinary Incontinence Chronic Cabral Catheter Chronic respiratory failure Diverticular disease of colon Emphysema GERD (gastroesophageal reflux disease) History of stroke Respiratory failure, acute Tobacco use Surgical Problems: H/O colonoscopy H/O esophagogastroduodenoscopy History of bronchoscopy Family History Diabetes mellitus FH: heart disease Social History Smoking Status: Current Some Day Smoker Marital Status: single Housing Status: prison Occupation Status: retired Allergies Coded Allergies: POLLEN (Verified Allergy, Unknown, SEASONAL ALLERGIES, 05/30/17) Lactose Intolerance (Verified Adverse Reaction, Intermediate, GI SYMPTOMS , 05/30/17) Home Medications Scheduled Acetazolamide (Acetazolamide), 250 MG PO BID Amiodarone HCl (Amiodarone HCl), 200 MG PO DAILY Doxycycline Hyclate (Doxycycline Hyclate), 1 TAB PO BID Finasteride (Finasteride), 5 MG PO DAILY Fluticasone Propionate (Nasal) (Flonase Allergy Relief), 2 SPRAYS MERVAT DAILY Furosemide (Lasix), 20 MG PO DAILY Home O2 Therapy (Oxygen), 2 LITERS NA CONTINOUS Insulin Lispro (Human) (Humalog Kwikpen), SQ ACHS Ipratropium-Albuterol (Duoneb), 1 TREATMENT INH QID Magnesium Oxide (Magnesium), 400 MG PO QAM Metoprolol Succ (Toprol Xl) (Toprol-Xl), 25 MG PO QAM Nystatin (Topical) (Nyamyc), 1 APPLN TOP TID Prednisone (Prednisone), 10 MG PO DAILY Tamsulosin Hcl (Flomax), 0.4 MG PO HS Scheduled PRN Acetaminophen (Tylenol), 650 MG PO Q4 PRN for pain 1-5 Acetaminophen Tab (Tylenol), 650 MG PO Q4 PRN for temp>100.4 Alprazolam (Xanax), 0.5 MG PO Q8 PRN for Anxiety Ipratropium [place] (Atrovent 0.02% Soln), 1 INHA PO Q4 PRN for sob/cough Lactulose (Chronulac), 30 ML PO Q6 PRN for Constipation Levalbuterol Hcl (Levalbuterol), 1 INHA NEB Q4 PRN for Shortness of Breath Current Inpatient Medications Current Inpatient Medications Medications (Trade) Dose Ordered Sig/Rosemary Route Start Time Stop Time Status Last Admin Dose Admin Sodium Chloride 1,000 ml @ 125 mls/hr Q8H STAT IV 05/31/17 15:27 05/31/17 23:26 05/31/17 15:55 125 MLS/HR Enoxaparin Sodium (Lovenox Inj) 40 mg HS SQ 05/31/17 21:00 06/30/17 20:59 UNV Pantoprazole Sodium 40 mg/ Syringe 10 ml @ 5 mls/min DAILY IV 06/01/17 09:00 07/01/17 08:59 UNV Miscellaneous Information (Icu Protocol For Hyperglycemia) 1 ea PRN PRN N/A 2/15/18 19:15 06/02/17 19:14 UNV Piperacillin Sod/ Tazobactam Sod 3.375 gm/Dextrose 115 ml @ 28.75 mls/ hr Q8 IV 05/31/17 22:00 06/07/17 21:59 UNV Miscellaneous Information (Consult) 1 ea UD PRN N/A 05/31/17 19:15 06/30/17 19:14 UNV Methylprednisolone Sodium Succinate 40 mg/Syringe 0.64 ml @ 1.5 mls/min Q8 IV 05/31/17 22:00 06/30/17 21:59 UNV Ipratropium [place] (Atrovent 0.02% 0.5MG/2.5ML Neb) 0.5 mg QIDR INH 05/31/17 20:00 06/30/17 19:59 UNV Levalbuterol (Xopenex 1.25MG/ 0.5ML Neb) 1.25 mg QIDR INH 05/31/17 20:00 06/30/17 19:59 UNV Levalbuterol (Xopenex 0.63 Mg/ 3 Ml Neb) 0.63 mg Q2H PRN INH 05/31/17 19:45 06/30/17 19:44 UNV Acetazolamide (Diamox Tab) 250 mg BID PO 05/31/17 21:00 06/30/17 20:59 UNV Alprazolam (Xanax Tab) 0.5 mg Q8 PRN PO 05/31/17 19:45 06/30/17 19:44 UNV Amiodarone HCl (Cordarone Tab) 200 mg DAILY PO 06/01/17 09:00 07/01/17 08:59 UNV Metoprolol Succinate (Toprol Xl Tab) 25 mg QAM PO 06/01/17 09:00 07/01/17 08:59 UNV Review of Systems 12 systems reviewed and negative other than previously mentioned in the HPI. Physical Exam Date Time Temp Pulse Resp B/P (MAP) Pulse Ox O2 Delivery O2 Flow Rate FiO2 05/31/17 19:15 92 26 92 BiPAP 05/31/17 19:01 134/65 05/31/17 19:00 89 27 91 05/31/17 18:56 92 92 2.0 05/31/17 18:45 98 25 90 05/31/17 18:01 142/81 Nasal Cannula 3.0 05/31/17 17:57 100 28 94 05/31/17 17:27 103 25 05/31/17 17:01 161/67 05/31/17 16:57 102 25 94 05/31/17 16:01 134/61 05/31/17 15:57 99 32 96 05/31/17 15:52 97 25 133/64 96 Nasal Cannula 3.0 05/31/17 15:22 93 22 95 05/31/17 14:52 101 27 95 05/31/17 14:38 94 Nasal Cannula 3.0 05/31/17 14:37 94 Nasal Cannula 3.0 05/31/17 14:36 36.8 107 28 143/68 94 Nasal Cannula 3.0 05/31/17 14:35 107 05/31/17 14:25 97 Nasal Cannula 3.0 Vital Signs - as noted Laboratory Data - as noted Physical Exam: General - NAD, resting in ICU with BiPap in place 12/6& 40% Eyes - EOMI No icterus, gaze conjugate Neck - Supple, trachea midline, no masses or lymphadenopathy, no JVD or bruits Lungs - No paradoxical chest wall movement, diminished to auscultation bilaterally, Coarse L > R No wheezes, rales, or rhonchi Heart - Reg rate and rhythm, No murmur, rubs, clicks, or gallops appreciated Abdomen - BS present, no bruits noted, tympanic to percussion, soft, nontender, nondistended, no organomegaly Extremities - No edema, pedal pulses intact Neuro - A&OX3 Strength extremities equal and appropriate bilaterally Reflexes: Normal and equal CN: EOMI, no facial asymmetry, uvula/tongue midline Laboratory Results Last 24 Hours Test 05/31/17 14:05 05/31/17 16:04 05/31/17 16:05 White Blood Count 9.54 K/uL Red Blood Count 3.22 M/uL Hemoglobin 9.9 g/dL Hematocrit 31.6 % Mean Corpuscular Volume 98.1 fL Mean Corpuscular Hemoglobin 30.7 pg Mean Corpuscular Hemoglobin Concent 31.3 g/dl Platelet Count 171 K/uL Mean Platelet Volume 10.3 fL Neutrophils (%) (Auto) 89.3 % Lymphocytes (%) (Auto) 3.8 % Monocytes (%) (Auto) 6.2 % Eosinophils (%) (Auto) 0.1 % Basophils (%) (Auto) 0.1 % Neutrophils # (Auto) 8.52 K/uL Lymphocytes # (Auto) 0.36 K/uL Monocytes # (Auto) 0.59 K/uL Eosinophils # (Auto) 0.01 K/uL Basophils # (Auto) 0.01 K/uL RDW Standard Deviation 52.5 fL RDW Coefficient of Variation 14.6 % Immature Granulocyte % (Auto) 0.5 % Immature Granulocyte # (Auto) 0.05 K/uL Platelet Estimate NORMAL Polychromasia 1+ Hypochromasia PRESENT Basophilic Stippling OCCASIONAL Prothrombin Time 9.8 SECONDS Prothromb Time International Ratio 0.9 Activated Partial Thromboplast Time 25.0 SECONDS Partial Thromboplastin Ratio 1.0 Sodium Level 139 mmol/L Potassium Level 4.0 mmol/L Chloride Level 99 mmol/L Carbon Dioxide Level 36 mmol/L Anion Gap 4.0 mmol/L Blood Urea Nitrogen 27 mg/dl Creatinine 1.40 mg/dl Est Creatinine Clear Calc Drug Dose 38.8 ml/min Estimated GFR () 57.4 Estimated GFR (Non- 49.5 BUN/Creatinine Ratio 19.6 Random Glucose 155 mg/dl Calcium Level 8.7 mg/dl Total Bilirubin 0.4 mg/dl Aspartate Amino Transf (AST/SGOT) 14 U/L Alanine Aminotransferase (ALT/SGPT) 24 U/L Alkaline Phosphatase 60 U/L Troponin I 0.028 ng/ml Total Protein 6.8 gm/dl Albumin 2.7 gm/dl Globulin 4.1 gm/dl Albumin/Globulin Ratio 0.7 Arterial Blood pH 7.30 Arterial Blood Partial Pressure CO2 76 mmHg Arterial Blood Partial Pressure O2 93 mm/Hg Arterial Blood HCO3 36 mmol/L Arterial Blood Oxygen Saturation 95.7 % Arterial Blood Base Excess 8.3 mEq/L Arterial Blood Gas Delivery 4 L Howard Test POS Influenza Type A Antigen Neg for Influ A Influenza Type B Antigen Neg for Influ B Diagnostic Results ABD/PELVIS NO IV OR ORAL CONT CT DOSE: 639.31 mGycm HISTORY: Pain altered, lower abd pain, UTI TECHNIQUE: Multiaxial CT images of the abdomen and pelvis were performed without contrast. A dose lowering technique was utilized adhering to the principles of ALARA. COMPARISON STUDY: 03/23/2017 FINDINGS: Interval resolution of the bilateral pleural effusions on the prior exam. Focal consolidative infiltrate posterior aspect right costophrenic angle. There is unremarkable in overall configuration. Gallstone filled gallbladder. Pancreas is uniform. Findings of bilateral nephrocalcinosis. This is similar as compared to the prior study. No current evidence for hydronephrosis. The ureters are normal in course and caliber. A calcification previously described at the right ureterovesical junction appears to pass. Prostate is moderately enlarged. Cabral catheter is present within the bladder. A pattern is normal. Bowel pattern is nonobstructive. Chronic sigmoid diverticulosis. No evidence for acute diverticulitis. IMPRESSION: 1. Focal consolidative infiltrate right posterior costophrenic angle. 2. Gallstone filled gallbladder. 3. Bilateral nephrocalcinosis similar as compared to the prior study. 4. No evidence for an obstructing urinary tract calculus. 5. Chronic sigmoid diverticulosis with no evidence for acute diverticulitis. 6. note is made of a small right inguinal hernia containing a short segment loop of small bowel. This is considered nonobstructive finding, and is unchanged from the prior exam. 7. Normal appendix. The above report was generated using voice recognition software. It may contain grammatical, syntax or spelling errors. Electronically signed by: Sukh England M.D. 05/31/2017 4:33 PM Dictated Date/Time: 05/31/2017 4:25 PM CHEST ONE VIEW PORTABLE CLINICAL HISTORY: sob dyspnea COMPARISON STUDY: 05/29/2017 FINDINGS: Emphysematous change throughout. Large and bleb changes right upper lung unchanged. Bibasilar parenchymal infiltrative changes stable. Moderate diaphragmatic flattening also stable. IMPRESSION: 1. Diffuse emphysematous change. 2. Diffuse bibasilar infiltrative and/or fibrotic change unaltered from the prior exam. 3. Unchanging large bleb right upper lung. The above report was generated using voice recognition software. It may contain grammatical, syntax or spelling errors. Electronically signed by: Sukh England M.D. 05/31/2017 3:10 PM Dictated Date/Time: 05/31/2017 3:09 PM Assessment & Plan (1) Influenza A (2) COPD (chronic obstructive pulmonary disease) (3) Respiratory failure, acute (4) History of stroke (5) Chronic respiratory failure Reason Critically Ill: Patient is an 71-year-old male who is transferred to the ICU for acute on chronic respiratory failure likely multi-factorial influenza A positive, COPD Exacerbation, and possible aspiration. PLAN: Resp: * Pt with prior extensive complicated hospital stay, wishes to be DNR at this time. * Influenza A positive: Begin Tamiflu suspension * Focal Consolidation on CT: Possible Aspiration * Continue Zosyn * MRSA Swab Neg * Respiratory Regimen in place * BiPap overnight, reassess in AM; Pt does not wish to be intubated should condition warrant it * Palliative Consult Neuro: * No unilateral neuro symptoms * Neuro checks per protocol * Pt denies pain * Monitor Pain Scale CV: * NSR on telemetry: Continue to monitor * Continue Home Cardiac Medications * EKG with Chest Pain * Troponin Neg x 1 Fluids/Renal: * Discontinue D5 1/2 NSS + 20 K due to increased glucose * Begin 1/2NSS + 20K @ 100mLs/hr * Avoid nephro toxic medications; CrCl 38.8 * Replete Electrolytes per protocol ID: * Abx: Zosyn (first day 05/31) * Procalcitonin in AM * Trend Fever Curve * Influenza A Positive: Continue Tamiflu GI/Nutrition: * NPO except meds; may have sips and chips as tolerated * LFTs: WNL Heme: * Daily CBC Endocrine: * No dx of DM * Withholding Insulin infusion currently due to know D5 in fluids and Steroids x 2, If not improved by 0600 check begin infusion as documented below * Accu-Checks per protocol, started insulin infusion for 2 blood sugars greater than 180 CCT: 45 Minutes; This time is exclusive of all separately billable procedures. Thank you for involving us in the care of this patient. Please refer to Dr. Izaiah Katz's addendum for further recommendations. I have personally evaluated and examined this patient. I agree with assessment and plan of Mark Rose PA-C.
[2017-05-31] MEDS ORDERED: METOPROLOL TARTRATE 1 MG/ML VIAL IV PRN (20:00)
[2017-05-31] MEDS ORDERED: DEXTROSE 50% 50 ML SYR IV PRN (20:30)
[2017-05-31] MEDS ORDERED: GLUCAGON FOR INJ 1 MG VIAL SQ PRN (20:30)
[2017-05-31] MEDS ORDERED: GLUCOSE 10 TABS/TUBE PO PRN (20:30)
[2017-05-31] MEDS ORDERED: GLUCOSE 40% GEL 15 GM TUBE PO PRN (20:30)
[2017-05-31] MEDS: IPRATROPIUM BROMIDE NEB SOLN 0.02% 2.5 ML VIAL INH SCH (20:36)
[2017-05-31] MEDS: LEVALBUTEROL 1.25MG/0.5ML NEB INH SCH (20:36)
[2017-05-31] MEDS: AcetaZOLAMIDE 250 MG TAB PO SCH (21:00)
[2017-05-31] MEDS ORDERED: ENOXAPARIN 40 MG/0.4 ML SYR SQ SCH (21:00)
[2017-05-31] MEDS ORDERED: D5W AND 1/2NSS + 20MEQ KCL 1,000 ML IV SCH (21:00)
[2017-05-31] MEDS ORDERED: INSULIN ASPART 100 UNITS/ML 3 ML PEN SC SCH (21:00)
--- NOTE | 2017-05-31 21:17 | EMERGENCY ROOM VISIT NOTE ---
History Report prepared by Dimple: Robert Yao Under the Supervision of: Dr. Mando Ochoa M.D. First contact with patient: 14:59 Chief Complaint: RESPIRATORY PROBLEMS Stated Complaint: RESPIRATORY Nursing Triage Summary: pt from [facility], seen here sunday twice in same day. pt having increase sob, decreased sats and lethargy. pt recieved xanax this am History of Present Illness The patient is a 71 year old male who presents to the Emergency Room with complaints of worsening shortness of breath that started a couple of days ago. Per the patient's report, the patient had pneumothorax five days ago. He was diagnosed after he went to [facility] due to increased shortness of breath. The patient states that he was seen here two days ago twice due to shortness of breath and lethargy. He reports that since his visit, his fatigue and shortness of breath have worsened. The patient states that his oxygen saturation has decreased. The patient denies LOC, headache, fevers, chills, diaphoresis, visual changes, neck pain, chest pain, nausea, vomiting, abdominal pain, back pain, urinary symptoms, rash, or other complaints. The HPI is limited due to the patient's altered mental status. Source of History: patient Onset: a couple of days ago Position: other (global) Quality: other (global) Timing: worsening Associated Symptoms: + fatigue Note: Associated symptoms: decreased oxygen saturation Review of Systems The ROS is limited due to the patient's altered mental status. Past Medical & Surgical Medical Problems: (1) BPH (benign prostatic hyperplasia) (2) Chronic respiratory failure (3) Diverticular disease of colon (4) Emphysema (5) GERD (gastroesophageal reflux disease) (6) History of stroke (7) Respiratory failure, acute (8) Tobacco use Surgical Problems: (1) H/O colonoscopy (2) H/O esophagogastroduodenoscopy (3) History of bronchoscopy Family History Diabetes mellitus FH: heart disease Social History Smoking Status: Current Some Day Smoker Alcohol Use: none Marital Status: single Housing Status: custodial Occupation Status: retired Current/Historical Medications Scheduled Acetazolamide (Acetazolamide), 250 MG PO BID Amiodarone HCl (Amiodarone HCl), 200 MG PO DAILY Doxycycline Hyclate (Doxycycline Hyclate), 1 TAB PO BID Finasteride (Finasteride), 5 MG PO DAILY Fluticasone Propionate (Nasal) (Flonase Allergy Relief), 2 SPRAYS MERVAT DAILY Furosemide (Lasix), 20 MG PO DAILY Home O2 Therapy (Oxygen), 2 LITERS NA CONTINOUS Insulin Lispro (Human) (Humalog Kwikpen), SQ ACHS Ipratropium-Albuterol (Duoneb), 1 TREATMENT INH QID Magnesium Oxide (Magnesium), 400 MG PO QAM Metoprolol Succ (Toprol Xl) (Toprol-Xl), 25 MG PO QAM Nystatin (Topical) (Nyamyc), 1 APPLN TOP TID Prednisone (Prednisone), 10 MG PO DAILY Tamsulosin Hcl (Flomax), 0.4 MG PO HS Scheduled PRN Acetaminophen (Tylenol), 650 MG PO Q4 PRN for pain 1-5 Acetaminophen Tab (Tylenol), 650 MG PO Q4 PRN for temp>100.4 Alprazolam (Xanax), 0.5 MG PO Q8 PRN for Anxiety Ipratropium [place] (Atrovent 0.02% Soln), 1 INHA PO Q4 PRN for sob/cough Lactulose (Chronulac), 30 ML PO Q6 PRN for Constipation Levalbuterol Hcl (Levalbuterol), 1 INHA NEB Q4 PRN for Shortness of Breath Allergies Coded Allergies: POLLEN (Verified Allergy, Unknown, SEASONAL ALLERGIES, 05/30/17) Lactose Intolerance (Verified Adverse Reaction, Intermediate, GI SYMPTOMS , 05/30/17) Physical Exam Vital Signs Date Time Temp Pulse Resp B/P (MAP) Pulse Ox O2 Delivery O2 Flow Rate FiO2 05/31/17 19:01 134/65 05/31/17 19:00 89 27 91 05/31/17 18:56 92 92 2.0 05/31/17 18:45 98 25 90 05/31/17 18:01 142/81 Nasal Cannula 3.0 05/31/17 17:57 100 28 94 05/31/17 17:27 103 25 05/31/17 17:01 161/67 05/31/17 16:57 102 25 94 05/31/17 16:01 134/61 05/31/17 15:57 99 32 96 05/31/17 15:52 97 25 133/64 96 Nasal Cannula 3.0 05/31/17 15:22 93 22 95 05/31/17 14:52 101 27 95 05/31/17 14:38 94 Nasal Cannula 3.0 05/31/17 14:37 94 Nasal Cannula 3.0 05/31/17 14:36 36.8 107 28 143/68 94 Nasal Cannula 3.0 05/31/17 14:35 107 05/31/17 14:25 97 Nasal Cannula 3.0 Physical Exam GENERAL: Very sleepy but arouses to voice. HENT: Normocephalic, atraumatic. Oropharynx unremarkable. EYES: Normal conjunctiva. Sclera non-icteric. NECK: Supple. No nuchal rigidity. FROM. No masses. RESPIRATORY: Diminished breath sounds right upper lung field. Rhonchi in right lower field. Wheezing in left lower field. CARDIAC: Normal rate. Normal rhythm. No murmurs. No rubs. Extremities warm and well perfused. Pulses equal. No JVD. GI: Soft, non-distended. Bilateral lower tenderness to palpation. No rebound or guarding. No masses. RECTAL: Deferred. MUSCULOSKELETAL: Atraumatic. Chest examination reveals no tenderness. The back is symmetrical on inspection without obvious abnormality. There is no CVA tenderness to palpation. No joint edema. LOWER EXTREMITIES: Calves are equal size bilaterally and non-tender. No edema. No discoloration. NEURO: Mildly confused sensorium. No sensory or motor deficits noted. SKIN: No rash or jaundice noted. Medical Decision & Procedures ER Provider Diagnostic Interpretation: Radiology results as stated below per my review and radiologist interpretation: CHEST ONE VIEW PORTABLE CLINICAL HISTORY: sob dyspnea COMPARISON STUDY: 05/29/2017 FINDINGS: Emphysematous change throughout. Large and bleb changes right upper lung unchanged. Bibasilar parenchymal infiltrative changes stable. Moderate diaphragmatic flattening also stable. IMPRESSION: 1. Diffuse emphysematous change. 2. Diffuse bibasilar infiltrative and/or fibrotic change unaltered from the prior exam. 3. Unchanging large bleb right upper lung. The above report was generated using voice recognition software. It may contain grammatical, syntax or spelling errors. Electronically signed by: Sukh England M.D. 05/31/2017 3:10 PM Dictated Date/Time: 05/31/2017 3:09 PM ABD/PELVIS NO IV OR ORAL CONT CT DOSE: 639.31 mGycm HISTORY: Pain altered, lower abd pain, UTI TECHNIQUE: Multiaxial CT images of the abdomen and pelvis were performed without contrast. A dose lowering technique was utilized adhering to the principles of ALARA. COMPARISON STUDY: 03/23/2017 FINDINGS: Interval resolution of the bilateral pleural effusions on the prior exam. Focal consolidative infiltrate posterior aspect right costophrenic angle. There is unremarkable in overall configuration. Gallstone filled gallbladder. Pancreas is uniform. Findings of bilateral nephrocalcinosis. This is similar as compared to the prior study. No current evidence for hydronephrosis. The ureters are normal in course and caliber. A calcification previously described at the right ureterovesical junction appears to pass. Prostate is moderately enlarged. Cabral catheter is present within the bladder. A pattern is normal. Bowel pattern is nonobstructive. Chronic sigmoid diverticulosis. No evidence for acute diverticulitis. IMPRESSION: 1. Focal consolidative infiltrate right posterior costophrenic angle. 2. Gallstone filled gallbladder. 3. Bilateral nephrocalcinosis similar as compared to the prior study. 4. No evidence for an obstructing urinary tract calculus. 5. Chronic sigmoid diverticulosis with no evidence for acute diverticulitis. 6. note is made of a small right inguinal hernia containing a short segment loop of small bowel. This is considered nonobstructive finding, and is unchanged from the prior exam. 7. Normal appendix. The above report was generated using voice recognition software. It may contain grammatical, syntax or spelling errors. Electronically signed by: Sukh England M.D. 05/31/2017 4:33 PM Dictated Date/Time: 05/31/2017 4:25 PM Laboratory Results 05/31/17 14:05 Red Blood Count 3.22, Mean Corpuscular Volume 98.1, Mean Corpuscular Hemoglobin 30.7, Mean Corpuscular Hemoglobin Concent 31.3, Mean Platelet Volume 10.3, Neutrophils (%) (Auto) 89.3, Lymphocytes (%) (Auto) 3.8, Monocytes (%) (Auto) 6.2, Eosinophils (%) (Auto) 0.1, Basophils (%) (Auto) 0.1, Neutrophils # (Auto) 8.52, Lymphocytes # (Auto) 0.36, Monocytes # (Auto) 0.59, Eosinophils # (Auto) 0.01, Basophils # (Auto) 0.01 05/31/17 14:05 Test 05/31/17 14:05 05/31/17 16:04 05/31/17 16:05 White Blood Count 9.54 K/uL (4.8-10.8) Red Blood Count 3.22 M/uL (4.7-6.1) Hemoglobin 9.9 g/dL (14.0-18.0) Hematocrit 31.6 % (42-52) Mean Corpuscular Volume 98.1 fL (80-100) Mean Corpuscular Hemoglobin 30.7 pg (25-34) Mean Corpuscular Hemoglobin Concent 31.3 g/dl (32-36) Platelet Count 171 K/uL (130-400) Mean Platelet Volume 10.3 fL (7.4-10.4) Neutrophils (%) (Auto) 89.3 % Lymphocytes (%) (Auto) 3.8 % Monocytes (%) (Auto) 6.2 % Eosinophils (%) (Auto) 0.1 % Basophils (%) (Auto) 0.1 % Neutrophils # (Auto) 8.52 K/uL (1.4-6.5) Lymphocytes # (Auto) 0.36 K/uL (1.2-3.4) Monocytes # (Auto) 0.59 K/uL (0.11-0.59) Eosinophils # (Auto) 0.01 K/uL (0-0.5) Basophils # (Auto) 0.01 K/uL (0-0.2) RDW Standard Deviation 52.5 fL (36.4-46.3) RDW Coefficient of Variation 14.6 % (11.5-14.5) Immature Granulocyte % (Auto) 0.5 % Immature Granulocyte # (Auto) 0.05 K/uL (0.00-0.02) Platelet Estimate NORMAL Polychromasia 1+ Hypochromasia PRESENT Basophilic Stippling OCCASIONAL Prothrombin Time 9.8 SECONDS (9.0-12.0) Prothromb Time International Ratio 0.9 (0.9-1.1) Activated Partial Thromboplast Time 25.0 SECONDS (21.0-31.0) Partial Thromboplastin Ratio 1.0 Anion Gap 4.0 mmol/L (3-11) Est Creatinine Clear Calc Drug Dose 38.8 ml/min Estimated GFR () 57.4 Estimated GFR (Non- 49.5 BUN/Creatinine Ratio 19.6 (10-20) Calcium Level 8.7 mg/dl (8.5-10.1) Total Bilirubin 0.4 mg/dl (0.2-1) Aspartate Amino Transf (AST/SGOT) 14 U/L (15-37) Alanine Aminotransferase (ALT/SGPT) 24 U/L (12-78) Alkaline Phosphatase 60 U/L (45-117) Troponin I 0.028 ng/ml (0-0.045) Total Protein 6.8 gm/dl (6.4-8.2) Albumin 2.7 gm/dl (3.4-5.0) Globulin 4.1 gm/dl (2.5-4.0) Albumin/Globulin Ratio 0.7 (0.9-2) Arterial Blood pH 7.30 (7.35-7.45) Arterial Blood Partial Pressure CO2 76 mmHg (35-46) Arterial Blood Partial Pressure O2 93 mm/Hg (80-95) Arterial Blood HCO3 36 mmol/L (19-24) Arterial Blood Oxygen Saturation 95.7 % (90-95) Arterial Blood Base Excess 8.3 mEq/L (-9-1.8) Arterial Blood Gas Delivery 4 L Howard Test POS (POS) Influenza Type A Antigen Neg for Influ A (NEG) Influenza Type B Antigen Neg for Influ B (NEG) Laboratory results reviewed by me Medications Administered Medications (Trade) Dose Ordered Sig/Rosemary Route Start Time Stop Time Status Last Admin Dose Admin Albuterol/ Ipratropium (Duoneb) 3 ml NOW STAT INH 05/31/17 15:21 05/31/17 15:22 DC 05/31/17 15:54 3 ML Methylprednisolone Sodium Succinate (Solu-Medrol IV) 125 mg NOW STAT IV 05/31/17 15:21 05/31/17 15:22 DC 05/31/17 15:54 125 MG Cefepime HCl 1000 mg/Dextrose 111 ml @ 200 mls/hr NOW STAT IV 05/31/17 15:27 18 16:00 DC 05/31/17 15:54 200 MLS/HR Sodium Chloride 500 ml @ 999 mls/hr Q31M STAT IV 05/31/17 15:27 05/31/17 15:57 DC 05/31/17 15:54 999 MLS/HR Sodium Chloride 1,000 ml @ 125 mls/hr Q8H STAT IV 05/31/17 15:27 05/31/17 20:37 DC 05/31/17 15:55 125 MLS/HR ECG Per My Interpretation Indication: SOB/dyspnea Rate (beats per minute): 107 Rhythm: sinus tachycardia Findings: PVC, no acute ischemic change ED Course 1519: The patient was evaluated in room C11B. A complete history and physical exam was performed. 1521: Ordered Solu-Medrol 125 mg IV, Duoneb 3 ml INH. 1527: Ordered Sodium Chloride 1000 ml @ 125 mls/hr IV, Sodium Chloride 500 ml @ 999 mls/hr IV, Cefepime HCl 1000 mg/Dextrose 111 ml @ 200 mls/hr IV. 1641: I reevaluated the patient and he is getting Bipap. I updated him on his results. I will page neisha. 1658: I discussed the patients case with Dr. Kelley, [facility] Hospitalist. He understands the patients condition and agrees to accept the patient. The patient will be further evaluated. Medical Decision Prior records/ancillary studies reviewed and summarized above. Nursing notes reviewed and agree them. The patient's history was concerning for altered mental status. Differential diagnosis: Etiologies such as pneumonia, COPD exacerbation, hypercarbia, infection, hypoglycemia, electrolyte abnormalities, cardiac sources, intracerebral event, toxicologic, neurologic, as well as others were entertained. Physical examination: As above. The patient was arousable easily to voice and would answer some basic questions. Detailed questions were unanswered. ER treatment provided: IV Lock Normal saline hydration DuoNeb Solu-Medrol BiPAP IV cefepime On reassessment the patient felt better. Diagnostics interpretation by me: ECG: As above. No ischemia. The labs revealed a mild stable anemia on CBC. No significant leukocytosis. Urinalysis from prior visit was concerning. Urine culture is showing greater than 100,000 colony-forming units of gram-negative bacteria. ABG is concerning for hypercarbia. Imaging studies: X-ray and CT scan as above. The patient has a pneumonia. He was on Levaquin. He also has a UTI. Because of this he was given a dose of IV cefepime to cover for possible resistance. He was placed on BiPAP. Consultation: A consultation was placed with Dr. Kelley the hospitalist. The case was discussed and diagnostics were reviewed. The patient was evaluated in the ER for further treatment. Medication Reconcilliation Current Medication List: was personally reviewed by me Blood Pressure Screening Patient's blood pressure: Elevated blood pressure Referred to Hospitalist Consults Time Called: 164 Consulting Physician: Neisha Cornelius Returned Call: [phone] I discussed the patients case with Neisha Cornelius. He understands the patients condition and agrees to accept the patient. The patient will be further evaluated. Impression Primary Impression: PNA (pneumonia) Additional Impressions: UTI (urinary tract infection) COPD (chronic obstructive pulmonary disease) acute oncotic respiratory failure Scribe Attestation The scribe's documentation has been prepared under my direction and personally reviewed by me in its entirety. I confirm that the note above accurately reflects all work, treatment, procedures, and medical decision making performed by me. Departure Information Dispostion Being Evaluated By Hospitalist Referrals Hamzah Ashley M.D. (PCP) Patient Instructions My [facility] Problem Qualifiers
[2017-05-31] MEDS: PIPERACILL/TAZOBAC IV 3.375 GM in DEXTROSE 5% 100ML 100 ML IV SCH (22:00)
[2017-05-31] MEDS: INSULIN GLARGINE SOLOSTAR 100 UNITS/ML 3 ML PEN SC SCH (22:03)
[2017-05-31 22:11] LABS: INFLUENZA A PCR POS for Influ A (NEG); INFLUENZA B PCR Neg for Influ B (NEG)
[2017-05-31] MEDS ORDERED: OSELTAMIVIR PHOSPHATE SUSP 30 MG/5 ML UDP PO ONE (22:13)
[2017-05-31] MEDS ORDERED: NURSING VERBAL MED ORDER ONE (22:45)
[2017-05-31] MEDS: INSULIN ASPART 100 UNITS/ML 3 ML PEN SC SCH (23:51)
[2017-05-31] MEDS: METHYLPREDNISOLONE IV 40 MG in SYRINGE 0 ML IV SCH (23:51)
[2017-06-01] VITALS (17 sets, daily range): BP systolic 108–160; BP diastolic 49–75; PULSE 63–87; TEMP 36.6–37.1; O2SAT 95–99; Ht 177.8 cm; Wt 56.4 kg
[2017-06-01] MEDS: SODIUM CHLOR 0.45% + 20MEQ KCL 1,000 ML IV SCH ×2 (00:11→10:10)
[2017-06-01 05:16] LABS: HEMATOCRIT 26.6 % (42-52); HEMOGLOBIN 8.5 g/dL (14.0-18.0); MEAN CELL VOLUME 96.4 fL (80-100); MEAN CORPUSCULAR HEMOGLOBIN 30.8 pg (25-34); MEAN PLATELET VOLUME 9.9 fL (7.4-10.4); PLATELET COUNT 147 K/uL (130-400); RED CELL DISTRIBUTION WIDTH CV 14.7 % (11.5-14.5); RED CELL DISTRIBUTION WIDTH SD 52.1 fL (36.4-46.3); WHITE BLOOD COUNT 5.55 K/uL (4.8-10.8)
[2017-06-01 05:33] LABS: CALCIUM 8.2 mg/dl (8.5-10.1); CREATININE 1.26 mg/dl (0.60-1.40); PHOSPHORUS 2.8 mg/dl (2.5-4.9); POTASSIUM 4.4 mmol/L (3.5-5.1)
[2017-06-01] MEDS: INSULIN ASPART 100 UNITS/ML 3 ML PEN SC SCH (06:00)
[2017-06-01] MEDS: PIPERACILL/TAZOBAC IV 3.375 GM in DEXTROSE 5% 100ML 100 ML IV SCH (06:06)
[2017-06-01] MEDS: MoRPHine SULFATE 2 MG/ML CARP IV PRN ×4 (06:42→17:04)
--- NOTE | 2017-06-01 07:05 | DIAGNOSTIC IMAGING REPORT ---
CHEST ONE VIEW PORTABLE HISTORY: 71 years-old Male pneumonia, COPD, respiratory failure acute respiratory failure COMPARISON: Chest radiograph 05/31/2017, CT chest 05/30/2017 TECHNIQUE: Portable AP view of the chest FINDINGS: Cardiac silhouette is again mildly enlarged. Atherosclerosis of the aorta. Advanced bullous emphysematous changes are redemonstrated with a very large bulla again seen involving the right upper lobe. Bilateral reticular opacities are again noted compatible with areas of chronic scarring/fibrosis. Patchy alveolar opacities of the right greater than left lung bases persist. Chronic blunting of the costophrenic angles without large pleural effusion or pneumothorax. No definite overt pulmonary edema however there is mild pulmonary vascular congestion. The bones of the chest appear grossly intact. IMPRESSION: 1. Persistent patchy alveolar opacities of the bilateral lung bases, right greater than left again suggest pneumonia or aspiration pneumonitis. 2. Cardiomegaly without overt pulmonary edema. 3. Severe bullous emphysema with areas of chronic scarring. The above report was generated using voice recognition software. It may contain grammatical, syntax or spelling errors. Electronically signed by: Ariel Ramirez M.D. 06/01/2017 7:04 AM Dictated Date/Time: 06/01/2017 7:01 AM
[2017-06-01] MEDS: LEVALBUTEROL 1.25MG/0.5ML NEB INH SCH ×2 (07:53→11:28)
[2017-06-01] MEDS: IPRATROPIUM BROMIDE NEB SOLN 0.02% 2.5 ML VIAL INH SCH ×2 (07:53→11:28)
[2017-06-01] MEDS: METHYLPREDNISOLONE IV 40 MG in SYRINGE 0 ML IV SCH (08:55)
[2017-06-01] MEDS ORDERED: OSELTAMIVIR PHOSPHATE SUSP 30 MG/5 ML UDP PO SCH (09:00)
[2017-06-01] MEDS ORDERED: AMIODARONE 200 MG TAB PO SCH (09:00)
[2017-06-01] MEDS: AcetaZOLAMIDE 250 MG TAB PO SCH (09:00)
[2017-06-01] MEDS ORDERED: METOPROLOL SUCC 25MG EXT REL TAB PO SCH (09:00)
--- NOTE | 2017-06-01 09:47 | Clinical Documentation Query ---
CLINICAL DOCUMENTATION QUERY 71 yo male admitted for acute respiratory failure, severe COPD, and encephalopathy. He has a BMI of 17.8 and is described as "cachectic". In your clinical opinion is this patient being managed for: ( X ) Severe protein-calorie malnutrition and cachexia ( ) Not Agree ( ) Other explanation of clinical findings (Please Explain) ( ) Unable to determine (Please Define) ( ) Need to Discuss The medical record reflects the following clinical findings, treatment, and risk factors. Clinical Indicators: As above Treatment: Daily weights, IV hydration, I&O Risk Factors: Age, acute respiratory failure, GERD, anemia Please clarify and document your clinical opinion in the progress notes and discharge summary. Terms such as "probable", "suspected", "likely", "questionable", "possible", or "still to be ruled out" are acceptable. IF IN AGREEMENT, YOU MUST DOCUMENT ABOVE DIAGNOSTIC STATEMENT IN DAILY PROGRESS NOTES AND DISCHARGE SUMMARY. This document is not part of the patient's record. Thank You, Keturah Ramos RN [phone]
[2017-06-01] MEDS: INSULIN GLARGINE SOLOSTAR 100 UNITS/ML 3 ML PEN SC SCH (10:12)
[2017-06-01] MEDS ORDERED: PANTOprazole INJ 40 MG in SYRINGE 0 ML IV SCH (11:00)
--- NOTE | 2017-06-01 11:17 | Palliative Care Consultation ---
Consultation Date of Consultation: Jun 01, 2017. Requesting Physician: Dr. Kelley Attending Physician: Dr. Wesley Reason for Consultation: Goals of care History of Present Illness This 71 year old male patient with PMH end-stage COPD, chronic respiratory failure, pulmonary htn, CVA, and others listed below, presented to the hospital last evening with c/o worsening SOB x2-3 days. He is positive for influenza A. ABG on admission showed pH 6.9, CO2 >130. Patient placed on Bipap and admitted to ICU. Dr. Kelley, hospitalist, spoke with patient and his son, Collins Samaniego, about code status and the decision was made for patient to be DNR/DNI. Patient was recently in the hospital with prolonged, complicated stay from March 18 to April 18 for COPD exacerbation, acute respiratory failure, and CVA. He was discharged to [facility] where he has continued to wax and wane as far as respiratory and functional status. Given patient's end-stage condition and acute /critical illness, palliative care is consulted to establish goals of care. I met with the patient this morning in room 104. He is on Bipap and wakens easily. He is oriented to person, place and event. Was a little confused on the time, but was able to participate in meaningful conversation. We discussed patient's wishes at this point moving forward. Patient stated, "Just remove all the tubes. I'm so tired." I asked if he knew what would happen next and he said he knew he would . Patient asked that I call his son, Collins Samaniego, and relay his wishes, and also expressed that he would like to wait to take Bipap off until his son is able to get here. I called Collins Samaniego ([phone]) and discussed his father's wishes. Collins states that he is in agreement with his father and that he has been saying consistently now for several weeks that he wanted to . When patient first got to [place], he had some time of feeling pretty well, but has since steadily declined. Collins is going to call some other family members and will come to hospital later today. Patient is aware. Past Medical/Surgical History Medical History: COPD with chronic home oxygen use Htn CKD Thrombocytopenia Diverticulosis CVA Pulmonary htn Social History Smoking Status: Former Smoker Housing Status: other (came from [facility]) Occupation Status: retired Review of Systems Constitutional: + weakness ENT: No sore throat Respiratory: + dyspnea on exertion, No cough, No wheezing Cardiac: No chest pain Abdomen: No pain, No nausea, No vomiting Male : No problem reported Psychiatric: No anxiety Allergies Coded Allergies: POLLEN (Verified Allergy, Unknown, SEASONAL ALLERGIES, 05/30/17) Lactose Intolerance (Verified Adverse Reaction, Intermediate, GI SYMPTOMS , 05/30/17) Medications Current Inpatient Medications Medications (Trade) Dose Ordered Sig/Rosemary Route Start Time Stop Time Status Last Admin Dose Admin Enoxaparin Sodium (Lovenox Inj) 40 mg HS SQ 05/31/17 21:00 06/30/17 20:59 05/31/17 22:01 40 MG Pantoprazole Sodium 40 mg/ Syringe 10 ml @ 5 mls/min DAILY@1100 IV 06/01/17 11:00 06/04/17 11:01 06/01/17 10:12 5 MLS/MIN Miscellaneous Information (Icu Protocol For Hyperglycemia) 1 ea PRN PRN N/A 05/31/17 19:15 06/02/17 19:14 Piperacillin Sod/ Tazobactam Sod 3.375 gm/Dextrose 115 ml @ 28.75 mls/ hr Q8H IV 05/31/17 22:00 06/07/17 21:59 06/01/17 06:06 28.75 MLS/HR Miscellaneous Information (Consult) 1 ea UD PRN N/A 05/31/17 19:15 06/30/17 19:14 Methylprednisolone Sodium Succinate 40 mg/Syringe 0.64 ml @ 1.5 mls/min Q8H IV 06/01/17 00:00 07/01/17 00:00 06/01/17 08:55 1.5 MLS/MIN Ipratropium [place] (Atrovent 0.02% 0.5MG/2.5ML Neb) 0.5 mg QIDR INH 05/31/17 20:00 06/30/17 19:59 06/01/17 07:53 0.5 MG Levalbuterol (Xopenex 1.25MG/ 0.5ML Neb) 1.25 mg QIDR INH 05/31/17 20:00 06/30/17 19:59 06/01/17 07:53 1.25 MG Levalbuterol (Xopenex 0.63 Mg/ 3 Ml Neb) 0.63 mg Q2H PRN INH 05/31/17 19:45 06/30/17 19:44 05/31/17 23:26 0.63 MG Acetazolamide (Diamox Tab) 250 mg BID17 PO 05/31/17 21:00 06/30/17 20:59 Alprazolam (Xanax Tab) 0.5 mg Q8 PRN PO 05/31/17 19:45 06/30/17 19:44 Amiodarone HCl (Cordarone Tab) 200 mg DAILY PO 06/01/17 09:00 07/01/17 08:59 Metoprolol Succinate (Toprol Xl Tab) 25 mg QAM PO 06/01/17 09:00 07/01/17 08:59 Metoprolol Tartrate (Lopressor Iv) 2.5 mg Q6 PRN IV 05/31/17 20:00 06/30/17 19:59 Insulin Glargine (Lantus Solostar Pen) 4 units BID SC 05/31/17 21:00 06/30/17 20:59 06/01/17 10:12 4 UNITS Glucose (Glucose 40% Gel) 15-30 GRAMS 15 GRAMS... UD PRN PO 05/31/17 20:30 06/30/17 20:29 Glucose (Glucose Chew Tab) 4-8 Tablets 4 Tabl... UD PRN PO 05/31/17 20:30 06/30/17 20:29 Dextrose (Dextrose 50% 50ML Syringe) 25-50ML OF 50% DW IV FOR... UD PRN IV 05/31/17 20:30 06/30/17 20:29 Glucagon (Glucagon Inj) 1 mg UD PRN SQ 05/31/17 20:30 06/30/17 20:29 Oseltamivir Phosphate (Tamiflu Susp) 30 mg BID PO 06/01/17 09:00 06/06/17 08:59 Insulin Aspart (novoLOG ASPART) SLIDING SCALE G... Q6 SC 06/01/17 06:00 07/01/17 05:59 05/31/17 23:51 2 UNITS Potassium Chloride/Sodium Chloride 1,000 ml @ 100 mls/hr Q10H IV 06/01/17 00:00 07/01/17 00:00 06/01/17 10:10 100 MLS/HR Morphine Sulfate (MoRPHine SULFATE INJ) 1 mg Q2H PRN IV 06/01/17 06:45 06/15/17 06:44 06/01/17 06:42 1 MG Physical Exam Date Time Temp Pulse Resp B/P (MAP) Pulse Ox O2 Delivery O2 Flow Rate FiO2 06/01/17 08:00 BiPAP 30 06/01/17 07:53 64 22 96 BiPAP/CPAP 30 06/01/17 07:53 64 96 30 06/01/17 06:08 84 24 160/75 (97) 96 06/01/17 05:11 87 97 30 06/01/17 05:01 73 24 127/72 (78) 97 06/01/17 04:01 82 24 134/75 (94) 96 06/01/17 04:00 36.7 06/01/17 04:00 95 BiPAP 30 06/01/17 03:01 73 25 108/58 (65) 95 06/01/17 02:29 75 95 30 06/01/17 02:01 75 24 108/49 (51) 96 06/01/17 01:01 78 24 113/54 (59) 97 06/01/17 00:01 36.6 06/01/17 00:01 82 23 149/75 (93) 96 05/31/17 23:59 94 BiPAP 30 05/31/17 23:26 79 26 94 BiPAP/CPAP 30 05/31/17 23:25 79 94 30 05/31/17 23:01 80 25 111/52 (57) 95 05/31/17 22:01 82 24 116/57 (68) 90 05/31/17 21:30 84 27 157/81 (121) 90 05/31/17 20:42 36.8 94 30 161/77 98 BiPAP 30 05/31/17 20:38 94 26 100 BiPAP/CPAP 30 05/31/17 20:37 94 100 30 05/31/17 20:01 95 28 144/70 93 BiPAP 05/31/17 19:52 143/74 05/31/17 19:50 96 32 92 05/31/17 19:35 89 28 92 05/31/17 19:20 87 28 92 05/31/17 19:15 92 26 92 BiPAP 05/31/17 19:01 134/65 05/31/17 19:00 89 27 91 05/31/17 18:56 92 92 2.0 05/31/17 18:45 98 25 90 05/31/17 18:01 142/81 Nasal Cannula 3.0 05/31/17 17:57 100 28 94 05/31/17 17:27 103 25 05/31/17 17:01 161/67 05/31/17 16:57 102 25 94 05/31/17 16:01 134/61 05/31/17 15:57 99 32 96 05/31/17 15:52 97 25 133/64 96 Nasal Cannula 3.0 05/31/17 15:22 93 22 95 05/31/17 14:52 101 27 95 05/31/17 14:38 94 Nasal Cannula 3.0 05/31/17 14:37 94 Nasal Cannula 3.0 05/31/17 14:36 36.8 107 28 143/68 94 Nasal Cannula 3.0 05/31/17 14:35 107 05/31/17 14:25 97 Nasal Cannula 3.0 General Appearance: no apparent distress, + thin, + pertinent finding (frail, chronically ill appearing) ENT: hearing grossly normal Neck: supple, no JVD Respiratory: no respiratory distress, + decreased breath sounds, + rhonchi ( coarse) Cardiovascular: regular rate, rhythm, no edema, + normal peripheral pulses Abdomen: normal bowel sounds, non tender, soft Neurologic/Psychiatric: alert, normal mood/affect, oriented x 3 Skin: + pallor Laboratory Results Last 24 Hours Test 05/31/17 14:05 05/31/17 16:04 05/31/17 16:05 05/31/17 20:40 White Blood Count 9.54 K/uL Red Blood Count 3.22 M/uL Hemoglobin 9.9 g/dL Hematocrit 31.6 % Mean Corpuscular Volume 98.1 fL Mean Corpuscular Hemoglobin 30.7 pg Mean Corpuscular Hemoglobin Concent 31.3 g/dl Platelet Count 171 K/uL Mean Platelet Volume 10.3 fL Neutrophils (%) (Auto) 89.3 % Lymphocytes (%) (Auto) 3.8 % Monocytes (%) (Auto) 6.2 % Eosinophils (%) (Auto) 0.1 % Basophils (%) (Auto) 0.1 % Neutrophils # (Auto) 8.52 K/uL Lymphocytes # (Auto) 0.36 K/uL Monocytes # (Auto) 0.59 K/uL Eosinophils # (Auto) 0.01 K/uL Basophils # (Auto) 0.01 K/uL RDW Standard Deviation 52.5 fL RDW Coefficient of Variation 14.6 % Immature Granulocyte % (Auto) 0.5 % Immature Granulocyte # (Auto) 0.05 K/uL Platelet Estimate NORMAL Polychromasia 1+ Hypochromasia PRESENT Basophilic Stippling OCCASIONAL Prothrombin Time 9.8 SECONDS Prothromb Time International Ratio 0.9 Activated Partial Thromboplast Time 25.0 SECONDS Partial Thromboplastin Ratio 1.0 Sodium Level 139 mmol/L Potassium Level 4.0 mmol/L Chloride Level 99 mmol/L Carbon Dioxide Level 36 mmol/L Anion Gap 4.0 mmol/L Blood Urea Nitrogen 27 mg/dl Creatinine 1.40 mg/dl Est Creatinine Clear Calc Drug Dose 38.8 ml/min Estimated GFR () 57.4 Estimated GFR (Non- 49.5 BUN/Creatinine Ratio 19.6 Random Glucose 155 mg/dl Calcium Level 8.7 mg/dl Total Bilirubin 0.4 mg/dl Aspartate Amino Transf (AST/SGOT) 14 U/L Alanine Aminotransferase (ALT/SGPT) 24 U/L Alkaline Phosphatase 60 U/L Troponin I 0.028 ng/ml Total Protein 6.8 gm/dl Albumin 2.7 gm/dl Globulin 4.1 gm/dl Albumin/Globulin Ratio 0.7 Arterial Blood pH 7.30 Arterial Blood Partial Pressure CO2 76 mmHg Arterial Blood Partial Pressure O2 93 mm/Hg Arterial Blood HCO3 36 mmol/L Arterial Blood Oxygen Saturation 95.7 % Arterial Blood Base Excess 8.3 mEq/L Arterial Blood Gas Delivery 4 L Howard Test POS Influenza Type A Antigen Neg for Influ A Influenza Type B Antigen Neg for Influ B Influenza Type A (RT-PCR) POS for Influ A Influenza Type B (RT-PCR) Neg for Influ B Test 05/31/17 21:58 05/31/17 22:21 05/31/17 23:46 06/01/17 05:08 Bedside Glucose 202 mg/dl 231 mg/dl Blood Gas Sample Site R Radial Bedside Blood Gas pH (LAB) 7.32 Bedside Blood Gas pCO2 (LAB) 62 mmHg Bedside Blood Gas pO2 (LAB) 64 mmHg Bedside Blood Gas HCO3 (LAB) 32 meq/L Bedside Blood Gas Total CO2 34 mEq/l Bedside Blood Gas Base Excess (LAB) 6.0 meq/L Bedside Blood Gas O2 Saturation 90.0 % Howard Test Pass Oxygen Delivery Device BIPAP Bedside Oxygen Rate (breaths/min) 12 Bedside FiO2 30 % Blood Gas IPAP 12 White Blood Count 5.55 K/uL Red Blood Count 2.76 M/uL Hemoglobin 8.5 g/dL Hematocrit 26.6 % Mean Corpuscular Volume 96.4 fL Mean Corpuscular Hemoglobin 30.8 pg Mean Corpuscular Hemoglobin Concent 32.0 g/dl RDW Standard Deviation 52.1 fL RDW Coefficient of Variation 14.7 % Platelet Count 147 K/uL Mean Platelet Volume 9.9 fL Venous Blood pH 7.34 Venous Blood Partial Pressure CO2 63 mmHg Venous Blood Partial Pressure O2 33 mmHg Venous Blood HCO3 33 mmol/L Venous Blood Oxygen Saturation 60.6 % Venous Blood Base Excess 6.4 mEq/L Sodium Level 141 mmol/L Potassium Level 4.4 mmol/L Chloride Level 104 mmol/L Carbon Dioxide Level 32 mmol/L Anion Gap 5.0 mmol/L Blood Urea Nitrogen 31 mg/dl Creatinine 1.26 mg/dl Est Creatinine Clear Calc Drug Dose 40.8 ml/min Estimated GFR () 65.2 Estimated GFR (Non- 56.2 BUN/Creatinine Ratio 24.3 Random Glucose 165 mg/dl Lactic Acid Level 1.2 mmol/L Calcium Level 8.2 mg/dl Phosphorus Level 2.8 mg/dl Magnesium Level 2.2 mg/dl Procalcitonin 0.06 ng/ml Test 06/01/17 06:04 Bedside Glucose 161 mg/dl Assessment & Plan Palliative Performance Scale: 20 % Problem list: SOB/CHIN Respiratory failure 2/2 end-stage COPD and Influenza A Bibasilar infiltrates- ?pneumonia Aspiration risk Hx CHF, CVA, DM, CKD Goals of care Palliative care recs: discussed with patient, patient's son Collins Samaniego, Dr. Katz, Dr. Wesley, and Dr. Linder. -Per patient's wishes, he is a DO NOT RESUSCITATE/DO NOT INTUBATE. -Patient wishes to have all care withdrawn and to transition to comfort measures only once his son arrives. It was fully discussed with him that this means the goal will be for him to peacefully/naturally, he agrees. Patient' s son is in agreement and will be in to hospital later today. -Once son arrives, remove bipap. -Patient is not in distress or uncomfortable at this time, but would order Roxanol 5mg PO Q1h PRN pain or SOB. -If he has secretions, atropine 1% oph soln 4 drops SL Q1h PRN and scopolamine patch. -Lorazepam 1mg PO/SL Q4h PRN anxiety/agitation. -Depending on how patient does once comfort measures are started, he may need a discharge plan: SNF with hospice. Thank you kindly for this consult. I will continue to follow as needed. Total time spent 70 minutes. Greater than 50% of time with the patient was spent on counseling and coordinating care.
--- NOTE | 2017-06-01 12:58 | Progress Note ---
Internal Med Progress Note Date of Service: Jun 01, 2017. Provider Documentation: SUBJECTIVE: Seen and examined at bedside Discussed with patient and family, Patient prefers to be on comfort measures only Denies chest pain Less, SOB Feels slightly better OBJECTIVE: Vital Signs-as noted below Physical Exam: General Appearance:Chronic Ill appearing, Cachectic Head: normocephalic, Atraumatic Eyes: normal inspection, EOMI, PERRL Neck: supple, Trachea midline Respiratory/Chest: Decreased breath sounds, B/L wheezes Cardiovascular: S1, S2, No murmur Abdomen/GI:Soft, Non tender, Bowel sounds present Extremities/Musculoskelatal:normal inspection, no edema Neurologic/Psych:grossly no focal neurological deficits Skin: normal color, warm Lab data as noted below. ASSESSMENT & PLAN: Acute Respiratory failure with hypoxia/hypercapnia: Underlying severe COPD, O2 and steroid-dependent. Possible aspiration pneumonia/Pneumonitis Influenza Patient prefers comfort measures only Palliative care on board Family agreed with current plan of care Oxygen PRN for comfort only Probable encephalopathy secondary to pulmonary infection and/or respiratory failure. Seemed to have resolved and is back to baseline Monitor Chronic systolic CHF Stable H/O CVA Suffered stroke during March hospitalization, thought to be most likely embolic in nature. Not receiving antiplatelet meds because of previously noted thrombocytopenia. and is high risk for anticoagulation. DM II Will DC Lantus/NovoLog BPH/ H/O Urinary Retention Continue catheter, changed before discharge. Severe Protein Calorie Malnutrition Cachexia Code Status: DNI/DNR Disposition: On comfort measures only palliative care following Vital Signs: Date Time Temp Pulse Resp B/P (MAP) Pulse Ox O2 Delivery O2 Flow Rate FiO2 06/01/17 12:00 37.1 84 22 136/69 (91) 96 BiPAP 30 06/01/17 12:00 BiPAP 30 06/01/17 11:32 83 97 30 06/01/17 11:32 83 26 97 BiPAP/CPAP 30 06/01/17 10:00 63 25 129/65 (86) 95 BiPAP 30 06/01/17 08:00 36.6 66 22 126/65 (85) 99 BiPAP 30 06/01/17 08:00 BiPAP 30 06/01/17 08:00 BiPAP 30 06/01/17 07:53 64 22 96 BiPAP/CPAP 30 06/01/17 07:53 64 96 30 2/16/18 06:08 84 24 160/75 (97) 96 2/16/18 05:11 87 97 30 2/16/18 05:01 73 24 127/72 (78) 97 2/16/18 04:01 82 24 134/75 (94) 96 2/16/18 04:00 36.7 2/16/18 04:00 95 BiPAP 30 2/16/18 03:01 73 25 108/58 (65) 95 2/16/18 02:29 75 95 30 2/16/18 02:01 75 24 108/49 (51) 96 2/16/18 01:01 78 24 113/54 (59) 97 2/16/18 00:01 36.6 2/16/18 00:01 82 23 149/75 (93) 96 2/15/18 23:59 94 BiPAP 30 2/15/18 23:26 79 26 94 BiPAP/CPAP 30 2/15/18 23:25 79 94 30 2/15/18 23:01 80 25 111/52 (57) 95 2/15/18 22:01 82 24 116/57 (68) 90 2/15/18 21:30 84 27 157/81 (121) 90 215/18 20:42 36.8 94 30 161/77 98 BiPAP 30 215/18 20:38 94 26 100 BiPAP/CPAP 30 2/15/18 20:37 94 100 30 2/15/18 20:01 95 28 144/70 93 BiPAP 2/15/18 19:52 143/74 2/15/18 19:50 96 32 92 2/15/18 19:35 89 28 92 2/15/18 19:20 87 28 92 2/15/18 19:15 92 26 92 BiPAP 2/15/18 19:01 134/65 2/15/18 19:00 89 27 91 2/15/18 18:56 92 92 2.0 2/15/18 18:45 98 25 90 2/15/18 18:01 142/81 Nasal Cannula 3.0 2/15/18 17:57 100 28 94 2/15/18 17:27 103 25 2/15/18 17:01 161/67 2/15/18 16:57 102 25 94 2/15/18 16:01 134/61 2/15/18 15:57 99 32 96 05/31/17 15:52 97 25 133/64 96 Nasal Cannula 3.0 05/31/17 15:22 93 22 95 05/31/17 14:52 101 27 95 05/31/17 14:38 94 Nasal Cannula 3.0 05/31/17 14:37 94 Nasal Cannula 3.0 05/31/17 14:36 36.8 107 28 143/68 94 Nasal Cannula 3.0 05/31/17 14:35 107 05/31/17 14:25 97 Nasal Cannula 3.0 Lab Results: Results Past 24 Hours Test 05/31/17 14:05 05/31/17 16:04 05/31/17 16:05 05/31/17 20:40 Range/Units White Blood Count 9.54 4.8-10.8 K/uL Red Blood Count 3.22 4.7-6.1 M/uL Hemoglobin 9.9 14.0-18.0 g/dL Hematocrit 31.6 42-52 % Mean Corpuscular Volume 98.1 80-100 fL Mean Corpuscular Hemoglobin 30.7 25-34 pg Mean Corpuscular Hemoglobin Concent 31.3 32-36 g/dl Platelet Count 171 130-400 K/uL Mean Platelet Volume 10.3 7.4-10.4 fL Neutrophils (%) (Auto) 89.3 % Lymphocytes (%) (Auto) 3.8 % Monocytes (%) (Auto) 6.2 % Eosinophils (%) (Auto) 0.1 % Basophils (%) (Auto) 0.1 % Neutrophils # (Auto) 8.52 1.4-6.5 K/uL Lymphocytes # (Auto) 0.36 1.2-3.4 K/uL Monocytes # (Auto) 0.59 0.11-0.59 K/uL Eosinophils # (Auto) 0.01 0-0.5 K/uL Basophils # (Auto) 0.01 0-0.2 K/uL RDW Standard Deviation 52.5 36.4-46.3 fL RDW Coefficient of Variation 14.6 11.5-14.5 % Immature Granulocyte % (Auto) 0.5 % Immature Granulocyte # (Auto) 0.05 0.00-0.02 K/uL Platelet Estimate NORMAL Polychromasia 1+ Hypochromasia PRESENT Basophilic Stippling OCCASIONAL Prothrombin Time 9.8 9.0-12.0 SECONDS Prothromb Time International Ratio 0.9 0.9-1.1 Activated Partial Thromboplast Time 25.0 21.0-31.0 SECONDS Partial Thromboplastin Ratio 1.0 Sodium Level 139 136-145 mmol/L Potassium Level 4.0 3.5-5.1 mmol/L Chloride Level 99 98-107 mmol/L Carbon Dioxide Level 36 21-32 mmol/L Anion Gap 4.0 3-11 mmol/L Blood Urea Nitrogen 27 7-18 mg/dl Creatinine 1.40 0.60-1.40 mg/dl Est Creatinine Clear Calc Drug Dose 38.8 ml/min Estimated GFR () 57.4 Estimated GFR (Non- 49.5 BUN/Creatinine Ratio 19.6 10-20 Random Glucose 155 70-99 mg/dl Calcium Level 8.7 8.5-10.1 mg/dl Total Bilirubin 0.4 0.2-1 mg/dl Aspartate Amino Transf (AST/SGOT) 14 15-37 U/L Alanine Aminotransferase (ALT/SGPT) 24 12-78 U/L Alkaline Phosphatase 60 45-117 U/L Troponin I 0.028 0-0.045 ng/ml Total Protein 6.8 6.4-8.2 gm/dl Albumin 2.7 3.4-5.0 gm/dl Globulin 4.1 2.5-4.0 gm/dl Albumin/Globulin Ratio 0.7 0.9-2 Arterial Blood pH 7.30 7.35-7.45 Arterial Blood Partial Pressure CO2 76 35-46 mmHg Arterial Blood Partial Pressure O2 93 80-95 mm/Hg Arterial Blood HCO3 36 19-24 mmol/L Arterial Blood Oxygen Saturation 95.7 90-95 % Arterial Blood Base Excess 8.3 -9-1.8 mEq/L Arterial Blood Gas Delivery 4 L Howard Test POS POS Influenza Type A Antigen Neg for Influ A NEG Influenza Type B Antigen Neg for Influ B NEG Influenza Type A (RT-PCR) POS for Influ A NEG Influenza Type B (RT-PCR) Neg for Influ B NEG Test 05/31/17 21:58 05/31/17 22:21 05/31/17 23:46 06/01/17 05:08 Range/Units Bedside Glucose 202 231 70-99 mg/dl Blood Gas Sample Site R Radial Bedside Blood Gas pH (LAB) 7.32 7.35-7.45 Bedside Blood Gas pCO2 (LAB) 62 35-46 mmHg Bedside Blood Gas pO2 (LAB) 64 80-95 mmHg Bedside Blood Gas HCO3 (LAB) 32 19-24 meq/L Bedside Blood Gas Total CO2 34 24-31 mEq/l Bedside Blood Gas Base Excess (LAB) 6.0 -9-1.8 meq/L Bedside Blood Gas O2 Saturation 90.0 90-95 % Howard Test Pass Oxygen Delivery Device BIPAP Bedside Oxygen Rate (breaths/min) 12 Bedside FiO2 30 % Blood Gas IPAP 12 White Blood Count 5.55 4.8-10.8 K/uL Red Blood Count 2.76 4.7-6.1 M/uL Hemoglobin 8.5 14.0-18.0 g/dL Hematocrit 26.6 42-52 % Mean Corpuscular Volume 96.4 80-100 fL Mean Corpuscular Hemoglobin 30.8 25-34 pg Mean Corpuscular Hemoglobin Concent 32.0 32-36 g/dl RDW Standard Deviation 52.1 36.4-46.3 fL RDW Coefficient of Variation 14.7 11.5-14.5 % Platelet Count 147 130-400 K/uL Mean Platelet Volume 9.9 7.4-10.4 fL Venous Blood pH 7.34 7.36-7.41 Venous Blood Partial Pressure CO2 63 38.0-50.0 mmHg Venous Blood Partial Pressure O2 33 mmHg Venous Blood HCO3 33 mmol/L Venous Blood Oxygen Saturation 60.6 % Venous Blood Base Excess 6.4 mEq/L Sodium Level 141 136-145 mmol/L Potassium Level 4.4 3.5-5.1 mmol/L Chloride Level 104 98-107 mmol/L Carbon Dioxide Level 32 21-32 mmol/L Anion Gap 5.0 3-11 mmol/L Blood Urea Nitrogen 31 7-18 mg/dl Creatinine 1.26 0.60-1.40 mg/dl Est Creatinine Clear Calc Drug Dose 40.8 ml/min Estimated GFR () 65.2 Estimated GFR (Non- 56.2 BUN/Creatinine Ratio 24.3 10-20 Random Glucose 165 70-99 mg/dl Lactic Acid Level 1.2 0.4-2.0 mmol/L Calcium Level 8.2 8.5-10.1 mg/dl Phosphorus Level 2.8 2.5-4.9 mg/dl Magnesium Level 2.2 1.8-2.4 mg/dl Procalcitonin 0.06 0-0.5 ng/ml Test 06/01/17 06:04 Range/Units Bedside Glucose 161 70-99 mg/dl
--- NOTE | 2017-06-01 13:15 | Critical Care Progress Note ---
Critical Care Progress Note Date of Service Jun 01, 2017. ICU Day ICU Day Number: [address] Katz Subjective Found patient resting comfortably in the bed with the BiPAP mask on. He denied any acute pain but continued to feel short of breath. He did not have any acute questions or immediate concerns. Objective General: Resting comfortable with BiPAP in place, does not appear in acute distress. HEENT: NCAT, EOMI, clear conjunctiva, supple neck. Lungs: Diminished breath sounds and expiratory wheezing throughout. Decreased overall respiratory effort. CV: + S1S2 RRR, no murmurs. Abdomen: +BS, soft, non-tender, non-distended throughout. Extremities: No distal edema, pedal pulses intact Skin - Buttock, scrotal, and penile ulcerations/excoriations. Neuro: Alert and oriented, answering questions clearly and lucidly. Assessment & Plan 71 yo male with acute on chronic respiratory failure of likely multi-factorial origin due to influenza A, COPD exacerbation, and possible aspiration. 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 Hx CVA and seizure. Answering questions appropriately, alert and oriented to [id number]. Denies any pain. Has decisional capacity. Pulm: Acute on chronic respiratory failure, steroid-dependent COPD, and positive for influenza A: Chest imaging concerning for bilateral infiltrates, possible aspiration. Has bullous, fibrotic changes as well. Normally on home 3L NC but on BiPAP here with SpO2 in mid-high 90's. VBG 7.34/63/33. DNI. On methylprednisolone, xopenex, atrovent. See "ID" as well. CVS: Denies chest symptoms outside of SOB. NSR with occasional PVC's. TnI 0.028. Hx systolic CHF and some cardiomegaly on CXR. On diamox, amiodarone, metoprolol. ID: Influenza A positive. Concerns for aspiration pneumonia as well. Nasal MRSA negative. Afebrile. WBC 9 -> 5. Procalcitonin 0.06. Lactate 1.2. On zosyn and tamiflu. Endo: No known PMH of endocrine issues. Some transient elevated blood sugars likely due to steroids. Monitoring. Renal/Lytes: Cr here 1.26 (around 1.0 in 2016). Electrolytes okay except mild low Ca. Monitoring. GI: During Apr 2017 admission, was noted to have some aspiration precautions. Admitted as NPO with meds. On protonix as well. Heme: Hb 9.9 -> 8.5. INR 0.9. No acute issues. Skin: Consulting wound care for buttock, scrotal, and penile ulcerations/ excoriations. Lines: PIV. Code status: DNR. See "Palliative Consultation" note [id number] at 11:17 for full discussion. Their recommended orders: -Patient wishes to have all care withdrawn and to transition to comfort measures only once his son arrives. It was fully discussed with him that this means the goal will be for him to peacefully/naturally, he agrees. Patient' s son is in agreement and will be in to hospital later today. -Once son arrives, remove bipap. -Patient is not in distress or uncomfortable at this time, but would order Roxanol 5mg PO Q1h PRN pain or SOB. -If he has secretions, atropine 1% oph soln 4 drops SL Q1h PRN and scopolamine patch. -Lorazepam 1mg PO/SL Q4h PRN anxiety/agitation. -Depending on how patient does once comfort measures are started, he may need a discharge plan: SNF with hospice. DVT prophy: Lovenox. PT/OT: N/a. Disposition: Comfort care as noted above, pending son's arrival. Resident Physician Supervision Note: Dr. Reid was resident physician during care of patient. I separately evaluated patient and did history and exam. I discussed the case with the resident and generally agree with the findings and plan. Patient does not desire active treatment and wishes to be made comfortable. Documented By: Izaiah Katz DO Consults & Procedures Consultants: Palliative: Dr. Schulte Data Medications: Current Inpatient Medications Medications (Trade) Dose Ordered Sig/Rosemary Route Start Time Stop Time Status Last Admin Dose Admin Enoxaparin Sodium (Lovenox Inj) 40 mg HS SQ 05/31/17 21:00 06/30/17 20:59 05/31/17 22:01 40 MG Pantoprazole Sodium 40 mg/ Syringe 10 ml @ 5 mls/min DAILY@1100 IV 06/01/17 11:00 06/04/17 11:01 06/01/17 10:12 5 MLS/MIN Miscellaneous Information (Icu Protocol For Hyperglycemia) 1 ea PRN PRN N/A 2/15/18 19:15 06/02/17 19:14 Piperacillin Sod/ Tazobactam Sod 3.375 gm/Dextrose 115 ml @ 28.75 mls/ hr Q8H IV 05/31/17 22:00 06/07/17 21:59 06/01/17 06:06 28.75 MLS/HR Miscellaneous Information (Consult) 1 ea UD PRN N/A 05/31/17 19:15 06/30/17 19:14 Methylprednisolone Sodium Succinate 40 mg/Syringe 0.64 ml @ 1.5 mls/min Q8H IV 06/01/17 00:00 07/01/17 00:00 06/01/17 08:55 1.5 MLS/MIN Ipratropium [place] (Atrovent 0.02% 0.5MG/2.5ML Neb) 0.5 mg QIDR INH 05/31/17 20:00 06/30/17 19:59 06/01/17 11:28 0.5 MG Levalbuterol (Xopenex 1.25MG/ 0.5ML Neb) 1.25 mg QIDR INH 05/31/17 20:00 06/30/17 19:59 06/01/17 11:28 1.25 MG Levalbuterol (Xopenex 0.63 Mg/ 3 Ml Neb) 0.63 mg Q2H PRN INH 05/31/17 19:45 06/30/17 19:44 05/31/17 23:26 0.63 MG Acetazolamide (Diamox Tab) 250 mg BID17 PO 05/31/17 21:00 06/30/17 20:59 Alprazolam (Xanax Tab) 0.5 mg Q8 PRN PO 05/31/17 19:45 06/30/17 19:44 Amiodarone HCl (Cordarone Tab) 200 mg DAILY PO 06/01/17 09:00 07/01/17 08:59 Metoprolol Succinate (Toprol Xl Tab) 25 mg QAM PO 06/01/17 09:00 07/01/17 08:59 Metoprolol Tartrate (Lopressor Iv) 2.5 mg Q6 PRN IV 05/31/17 20:00 06/30/17 19:59 Insulin Glargine (Lantus Solostar Pen) 4 units BID SC 05/31/17 21:00 06/30/17 20:59 06/01/17 10:12 4 UNITS Glucose (Glucose 40% Gel) 15-30 GRAMS 15 GRAMS... UD PRN PO 05/31/17 20:30 06/30/17 20:29 Glucose (Glucose Chew Tab) 4-8 Tablets 4 Tabl... UD PRN PO 05/31/17 20:30 06/30/17 20:29 Dextrose (Dextrose 50% 50ML Syringe) 25-50ML OF 50% DW IV FOR... UD PRN IV 05/31/17 20:30 06/30/17 20:29 Glucagon (Glucagon Inj) 1 mg UD PRN SQ 05/31/17 20:30 06/30/17 20:29 Oseltamivir Phosphate (Tamiflu Susp) 30 mg BID PO 06/01/17 09:00 06/06/17 08:59 Insulin Aspart (novoLOG ASPART) SLIDING SCALE G... Q6 SC 06/01/17 06:00 07/01/17 05:59 05/31/17 23:51 2 UNITS Potassium Chloride/Sodium Chloride 1,000 ml @ 100 mls/hr Q10H IV 06/01/17 00:00 07/01/17 00:00 06/01/17 10:10 100 MLS/HR Morphine Sulfate (MoRPHine SULFATE INJ) 1 mg Q2H PRN IV 06/01/17 06:45 06/15/17 06:44 06/01/17 12:54 1 MG Vital Signs: Date Time Temp Pulse Resp B/P (MAP) Pulse Ox O2 Delivery O2 Flow Rate FiO2 06/01/17 11:32 83 97 30 06/01/17 11:32 83 26 97 BiPAP/CPAP 30 06/01/17 10:00 63 25 129/65 (86) 95 BiPAP 30 06/01/17 08:00 36.6 66 22 126/65 (85) 99 BiPAP 30 06/01/17 08:00 BiPAP 30 06/01/17 08:00 BiPAP 30 06/01/17 07:53 64 22 96 BiPAP/CPAP 30 06/01/17 07:53 64 96 30 06/01/17 06:08 84 24 160/75 (97) 96 2/16/18 05:11 87 97 30 2/16/18 05:01 73 24 127/72 (78) 97 2/16/18 04:01 82 24 134/75 (94) 96 2/16/18 04:00 36.7 2/16/18 04:00 95 BiPAP 30 2/16/18 03:01 73 25 108/58 (65) 95 2/16/18 02:29 75 95 30 2/16/18 02:01 75 24 108/49 (51) 96 2/16/18 01:01 78 24 113/54 (59) 97 2/16/18 00:01 36.6 2/16/18 00:01 82 23 149/75 (93) 96 2/15/18 23:59 94 BiPAP 30 2/15/18 23:26 79 26 94 BiPAP/CPAP 30 2/15/18 23:25 79 94 30 2/15/18 23:01 80 25 111/52 (57) 95 2/15/18 22:01 82 24 116/57 (68) 90 2/15/18 21:30 84 27 157/81 (121) 90 2/15/18 20:42 36.8 94 30 161/77 98 BiPAP 30 2/15/18 20:38 94 26 100 BiPAP/CPAP 30 2/15/18 20:37 94 100 30 2/15/18 20:01 95 28 144/70 93 BiPAP 2/15/18 19:52 143/74 2/15/18 19:50 96 32 92 2/15/18 19:35 89 28 92 2/15/18 19:20 87 28 92 2/15/18 19:15 92 26 92 BiPAP 2/15/18 19:01 134/65 2/15/18 19:00 89 27 91 2/15/18 18:56 92 92 2.0 2/15/18 18:45 98 25 90 2/15/18 18:01 142/81 Nasal Cannula 3.0 2/15/18 17:57 100 28 94 2/15/18 17:27 103 25 2/15/18 17:01 161/67 2/15/18 16:57 102 25 94 2/15/18 16:01 134/61 2/15/18 15:57 99 32 96 2/15/18 15:52 97 25 133/64 96 Nasal Cannula 3.0 05/31/17 15:22 93 22 95 05/31/17 14:52 101 27 95 05/31/17 14:38 94 Nasal Cannula 3.0 05/31/17 14:37 94 Nasal Cannula 3.0 05/31/17 14:36 36.8 107 28 143/68 94 Nasal Cannula 3.0 05/31/17 14:35 107 05/31/17 14:25 97 Nasal Cannula 3.0 Laboratory Results: Last 24 Hours Test 05/31/17 14:05 05/31/17 16:04 05/31/17 16:05 05/31/17 20:40 White Blood Count 9.54 K/uL Red Blood Count 3.22 M/uL Hemoglobin 9.9 g/dL Hematocrit 31.6 % Mean Corpuscular Volume 98.1 fL Mean Corpuscular Hemoglobin 30.7 pg Mean Corpuscular Hemoglobin Concent 31.3 g/dl Platelet Count 171 K/uL Mean Platelet Volume 10.3 fL Neutrophils (%) (Auto) 89.3 % Lymphocytes (%) (Auto) 3.8 % Monocytes (%) (Auto) 6.2 % Eosinophils (%) (Auto) 0.1 % Basophils (%) (Auto) 0.1 % Neutrophils # (Auto) 8.52 K/uL Lymphocytes # (Auto) 0.36 K/uL Monocytes # (Auto) 0.59 K/uL Eosinophils # (Auto) 0.01 K/uL Basophils # (Auto) 0.01 K/uL RDW Standard Deviation 52.5 fL RDW Coefficient of Variation 14.6 % Immature Granulocyte % (Auto) 0.5 % Immature Granulocyte # (Auto) 0.05 K/uL Platelet Estimate NORMAL Polychromasia 1+ Hypochromasia PRESENT Basophilic Stippling OCCASIONAL Prothrombin Time 9.8 SECONDS Prothromb Time International Ratio 0.9 Activated Partial Thromboplast Time 25.0 SECONDS Partial Thromboplastin Ratio 1.0 Sodium Level 139 mmol/L Potassium Level 4.0 mmol/L Chloride Level 99 mmol/L Carbon Dioxide Level 36 mmol/L Anion Gap 4.0 mmol/L Blood Urea Nitrogen 27 mg/dl Creatinine 1.40 mg/dl Est Creatinine Clear Calc Drug Dose 38.8 ml/min Estimated GFR () 57.4 Estimated GFR (Non- 49.5 BUN/Creatinine Ratio 19.6 Random Glucose 155 mg/dl Calcium Level 8.7 mg/dl Total Bilirubin 0.4 mg/dl Aspartate Amino Transf (AST/SGOT) 14 U/L Alanine Aminotransferase (ALT/SGPT) 24 U/L Alkaline Phosphatase 60 U/L Troponin I 0.028 ng/ml Total Protein 6.8 gm/dl Albumin 2.7 gm/dl Globulin 4.1 gm/dl Albumin/Globulin Ratio 0.7 Arterial Blood pH 7.30 Arterial Blood Partial Pressure CO2 76 mmHg Arterial Blood Partial Pressure O2 93 mm/Hg Arterial Blood HCO3 36 mmol/L Arterial Blood Oxygen Saturation 95.7 % Arterial Blood Base Excess 8.3 mEq/L Arterial Blood Gas Delivery 4 L Howard Test POS Influenza Type A Antigen Neg for Influ A Influenza Type B Antigen Neg for Influ B Influenza Type A (RT-PCR) POS for Influ A Influenza Type B (RT-PCR) Neg for Influ B Test 05/31/17 21:58 05/31/17 22:21 05/31/17 23:46 06/01/17 05:08 Bedside Glucose 202 mg/dl 231 mg/dl Blood Gas Sample Site R Radial Bedside Blood Gas pH (LAB) 7.32 Bedside Blood Gas pCO2 (LAB) 62 mmHg Bedside Blood Gas pO2 (LAB) 64 mmHg Bedside Blood Gas HCO3 (LAB) 32 meq/L Bedside Blood Gas Total CO2 34 mEq/l Bedside Blood Gas Base Excess (LAB) 6.0 meq/L Bedside Blood Gas O2 Saturation 90.0 % Howard Test Pass Oxygen Delivery Device BIPAP Bedside Oxygen Rate (breaths/min) 12 Bedside FiO2 30 % Blood Gas IPAP 12 White Blood Count 5.55 K/uL Red Blood Count 2.76 M/uL Hemoglobin 8.5 g/dL Hematocrit 26.6 % Mean Corpuscular Volume 96.4 fL Mean Corpuscular Hemoglobin 30.8 pg Mean Corpuscular Hemoglobin Concent 32.0 g/dl RDW Standard Deviation 52.1 fL RDW Coefficient of Variation 14.7 % Platelet Count 147 K/uL Mean Platelet Volume 9.9 fL Venous Blood pH 7.34 Venous Blood Partial Pressure CO2 63 mmHg Venous Blood Partial Pressure O2 33 mmHg Venous Blood HCO3 33 mmol/L Venous Blood Oxygen Saturation 60.6 % Venous Blood Base Excess 6.4 mEq/L Sodium Level 141 mmol/L Potassium Level 4.4 mmol/L Chloride Level 104 mmol/L Carbon Dioxide Level 32 mmol/L Anion Gap 5.0 mmol/L Blood Urea Nitrogen 31 mg/dl Creatinine 1.26 mg/dl Est Creatinine Clear Calc Drug Dose 40.8 ml/min Estimated GFR () 65.2 Estimated GFR (Non- 56.2 BUN/Creatinine Ratio 24.3 Random Glucose 165 mg/dl Lactic Acid Level 1.2 mmol/L Calcium Level 8.2 mg/dl Phosphorus Level 2.8 mg/dl Magnesium Level 2.2 mg/dl Procalcitonin 0.06 ng/ml Test 06/01/17 06:04 Bedside Glucose 161 mg/dl Resident Tracking Resident Involvement: Resident Care Provided Care Provided: Adult Hospital Medicine (ICU care)
[2017-06-01] MEDS: LORAZEPAM 1 MG TAB PO PRN (15:22)
[2017-06-01] MEDS ORDERED: MoRPHine SULFATE 2 MG/ML CARP ONE (16:10)
[2017-06-02] MEDS ORDERED: NURSING VERBAL MED ORDER ONE (07:30)
[2017-06-02] MEDS: MoRPHine SULFATE 2 MG/ML CARP IV PRN ×2 (07:53→15:04)
[2017-06-02] MEDS: ATROPINE SULFATE 1% OP SOLN 2 ML BTL SL PRN ×2 (07:53→22:59)
[2017-06-02] MEDS ORDERED: SCOPOLAMINE 1.5 MG TDSY TD SCH (08:00)
[2017-06-02] MEDS: LORAZEPAM 1 MG TAB PO PRN ×2 (08:26→23:01)
[2017-06-02] MEDS: CHECK SCOPOLAMINE PATCH PLACEMENT SCH ×2 (16:54→23:03)
--- NOTE | 2017-06-02 17:48 | Progress Note ---
Internal Med Progress Note Date of Service: Jun 02, 2017. Provider Documentation: SUBJECTIVE: Seen and examined at bedside Minimally responsive, lethargic No distress noted Clinically deteriorating OBJECTIVE: Vital Signs-as noted below Physical Exam: General Appearance:Chronic Ill appearing, Cachectic Head: normocephalic, Atraumatic Eyes: normal inspection, EOMI, PERRL Neck: supple, Trachea midline Respiratory/Chest: Decreased breath sounds, B/L wheezes/Rhonchi Cardiovascular: S1, S2, No murmur Abdomen/GI:Soft, Non tender, Bowel sounds present Extremities/Musculoskelatal:normal inspection, no edema Neurologic/Psych:grossly no focal neurological deficits Skin: normal color, warm Lab data as noted below. ASSESSMENT & PLAN: Acute Respiratory failure with hypoxia/hypercapnia: Underlying severe COPD, O2 and steroid-dependent. Possible aspiration pneumonia/Pneumonitis Influenza Patient prefers comfort measures only Palliative care on board Family agreed with current plan of care Oxygen PRN for comfort only continue current management Probable encephalopathy secondary to pulmonary infection and/or respiratory failure. Monitor Chronic systolic CHF Stable H/O CVA Suffered stroke during March hospitalization, thought to be most likely embolic in nature. Not receiving antiplatelet meds because of previously noted thrombocytopenia. and is high risk for anticoagulation. DM II DC Lantus/NovoLog BPH/ H/O Urinary Retention Continue catheter Severe Protein Calorie Malnutrition Cachexia Code Status: DNI/DNR Disposition: On comfort measures only palliative care following Clinically deteriorating Vital Signs: Date Time Temp Pulse Resp B/P (MAP) Pulse Ox O2 Delivery O2 Flow Rate FiO2 06/02/17 16:54 Nasal Cannula 4.0 06/02/17 09:41 Nasal Cannula 4.0 06/02/17 00:00 Nasal Cannula 3.0 06/01/17 20:00 Nasal Cannula 3.0
[2017-06-02] MEDS: MoRPHine SULFATE 5 MG/0.25 ML UDP PO PRN (23:08)
[2017-06-03] MEDS: ATROPINE SULFATE 1% OP SOLN 2 ML BTL SL PRN ×2 (06:31→10:48)
[2017-06-03] MEDS: LORAZEPAM 1 MG TAB PO PRN ×2 (06:31→18:45)
[2017-06-03] MEDS: MoRPHine SULFATE 5 MG/0.25 ML UDP PO PRN (06:33)
[2017-06-03] MEDS: CHECK SCOPOLAMINE PATCH PLACEMENT SCH ×2 (08:03→16:58)
[2017-06-03] MEDS: MoRPHine SULFATE 2 MG/ML CARP IV PRN ×3 (08:03→13:25)
[2017-06-03] MEDS ORDERED: NURSING VERBAL MED ORDER ONE ×2 (13:45→21:00)
[2017-06-03] MEDS ORDERED: MORPHINE SULF/NSS 250MG/250ML IV PRN (14:00)
--- NOTE | 2017-06-03 15:20 | Progress Note ---
Internal Med Progress Note Date of Service: Jun 03, 2017. Provider Documentation: SUBJECTIVE: Seen and examined at bedside Mild respiratory distress noted by Staff this morning Started on Morphine drip Clinically deteriorating Family at bedside OBJECTIVE: Vital Signs-as noted below Physical Exam: General Appearance:Chronic Ill appearing, Cachectic Head: normocephalic, Atraumatic Eyes: normal inspection, EOMI, PERRL Neck: supple, Trachea midline Respiratory/Chest: Decreased breath sounds, B/L wheezes/Rhonchi Cardiovascular: S1, S2, No murmur Abdomen/GI:Soft, Non tender, Bowel sounds present Extremities/Musculoskelatal:normal inspection, no edema Neurologic/Psych:grossly no focal neurological deficits Skin: normal color, warm Lab data as noted below. ASSESSMENT & PLAN: Acute Respiratory failure with hypoxia/hypercapnia: Underlying severe COPD, O2 and steroid-dependent. Possible aspiration pneumonia/Pneumonitis Influenza Patient prefers comfort measures only Palliative care on board Family agreed with current plan of care Oxygen PRN for comfort only continue current management Morphine drip titration as needed Probable encephalopathy secondary to pulmonary infection and/or respiratory failure. Monitor Chronic systolic CHF Stable H/O CVA Suffered stroke during March hospitalization, thought to be most likely embolic in nature. Not receiving antiplatelet meds because of previously noted thrombocytopenia. and is high risk for anticoagulation. DM II DC Lantus/NovoLog BPH/ H/O Urinary Retention Continue catheter Severe Protein Calorie Malnutrition Cachexia Code Status: DNI/DNR Disposition: On comfort measures only palliative care following Clinically deteriorating Vital Signs: Date Time Temp Pulse Resp B/P (MAP) Pulse Ox O2 Delivery O2 Flow Rate FiO2 06/03/17 08:40 Nasal Cannula 4.0 06/03/17 00:15 Nasal Cannula 4.0 06/02/17 20:00 Nasal Cannula 4.0 06/02/17 16:54 Nasal Cannula 4.0
[2017-06-03] MEDS ORDERED: NURSING DECISION MEDICATION ORDER SCH ×2 (16:45→19:30)
--- NOTE | 2017-06-04 07:44 | Discharge Summary ---
Discharge Summary Date of Service Jun 04, 2017. Discharge Summary Admission Date: May 31, 2017 at 19:06 Discharge Disposition: Principal Diagnosis: Acute Respiratory failure with hypoxia/hypercapnia Secondary Diagnoses/Problems: Severe COPD, Influenza Procedures: CXR: 1. Diffuse emphysematous change. 2. Diffuse bibasilar infiltrative and/or fibrotic change unaltered from the prior exam. 3. Unchanging large bleb right upper lung. CT ABD: 1. Focal consolidative infiltrate right posterior costophrenic angle. 2. Gallstone filled gallbladder. 3. Bilateral nephrocalcinosis similar as compared to the prior study. 4. No evidence for an obstructing urinary tract calculus. 5. Chronic sigmoid diverticulosis with no evidence for acute diverticulitis. 6. note is made of a small right inguinal hernia containing a short segment loop of small bowel. This is considered nonobstructive finding, and is unchanged from the prior exam. 7. Normal appendix. Consultations: Critical Care, Palliative Admission Information HPI (per Admitting provider): 71-year-old male followed by Dr. Rosen. History of severe O2 and steroid dependent COPD. Prolonged hospitalization in March-April for exacerbation of COPD attributed to bronchiectasis, acute kidney injury, strokes, and other problems. Transfer to [facility] on 04/18/17. Developed cough and shortness of breath on 05/29/17. Portable chest x-ray performed at [facility] interpreted demonstrating large right-sided pneumothorax. Referred to ED for evaluation. CT of chest demonstrated extensive bullous emphysema, no pneumothorax. He received methylprednisolone, levofloxacin, DuoNeb. Respiratory status improved and he returned to [facility] with instructions to take levofloxacin and prednisone taper. Worsening cough, dyspnea, and confusion today. Return to the ED for evaluation. Patient unable to provide additional history at the time of admission due to his condition. . Physical Exam (per Admitting): General Appearance: + severe distress, + cachetic Head: normocephalic, atraumatic Eyes: normal inspection, PERRL, EOMI, sclerae normal ENT: normal ENT inspection, + pertinent finding (wearing BiPAP) Neck: supple, no adenopathy, thyroid normal, trachea midline, + JVD Respiratory/Chest: + respiratory distress, + rhonchi, + wheezing Cardiovascular: regular rate, rhythm, + tachycardia, + pertinent finding ( distant heart sounds, no murmur, gallop, rub appreciated) Abdomen/GI: normal bowel sounds, non tender, soft, no organomegaly Extremities/Musculoskelatal: normal inspection, no calf tenderness, normal capillary refill Neurologic/Psych: + pertinent finding (confused; PERRL, EOMI; generalized weakness) Skin: warm/dry, no rash Lymphatic: no adenopathy (cervical) Hospital Course Acute Respiratory failure with hypoxia/hypercapnia: Underlying severe COPD, O2 and steroid-dependent. Possible aspiration pneumonia/Pneumonitis Influenza Patient prefers comfort measures only Palliative care on board Family agreed with current plan of care Oxygen PRN for comfort only continue current management Morphine drip titration as needed Patient overnight Probable encephalopathy secondary to pulmonary infection and/or respiratory failure. Monitor Chronic systolic CHF Stable H/O CVA Suffered stroke during March hospitalization, thought to be most likely embolic in nature. Not receiving antiplatelet meds because of previously noted thrombocytopenia. and is high risk for anticoagulation. DM II DC Lantus/NovoLog BPH/ H/O Urinary Retention Continue catheter Severe Protein Calorie Malnutrition Cachexia Code Status: DNI/DNR Disposition: On comfort measures only palliative care following Clinically deteriorating Total time spent on discharge = This includes examination of the patient, discharge planning, medication reconciliation, and communication with other providers. Discharge Instructions Patient
== END 2017-06-03 21:55 | disposition expired | DRG 177 ==
LOC: EDBD 14:22 → C.EDC 14:25 → UNDOADMIN 19:06 → C.MSICU 19:06 → ENRESERV 19:42 → CANRESERV 19:42 → ENRESERV 19:54 → EDBEDREQ 06-01 15:06 → ENRESERV 06-01 15:26 → C.4E 06-01 16:09 → C.MSICU 06-01 16:09
PROVIDERS: ADMIT Hospitalist; ATTEND Internal Medicine
DX: J69.0 Pneumonitis due to inhalation of food and vomit (principal); G93.40 Encephalopathy, unspecified; E43 Unspecified severe protein-calorie malnutrition; J96.22 Acute and chronic respiratory failure with hypercapnia; J96.21 Acute and chronic respiratory failure with hypoxia; I50.22 Chronic systolic (congestive) heart failure; R64 Cachexia; Z68.1 Body mass index [BMI] 19.9 or less, adult; J44.9 Chronic obstructive pulmonary disease, unspecified; Z79.4 Long term (current) use of insulin; J10.1 Influenza due to other identified influenza virus with other respiratory manifestations; J22 Unspecified acute lower respiratory infection; R41.82 Altered mental status, unspecified; Z86.73 Personal history of transient ischemic attack (TIA), and cerebral infarction without residual deficits; E11.9 Type 2 diabetes mellitus without complications; N40.1 Benign prostatic hyperplasia with lower urinary tract symptoms; Z66 Do not resuscitate; Z51.5 Encounter for palliative care; I10 Essential (primary) hypertension; Z87.891 Personal history of nicotine dependence; Z99.81 Dependence on supplemental oxygen